=== PATIENT | female | born 1955 | race Caucasian/White ===

== ENCOUNTER 2018-04-08 10:47 | Inpatient (IN) | payer OTHER, SELFPAY ==
[2018-04-08] VITALS (10 sets, daily range): BP systolic 124–150; BP diastolic 54–85; PULSE 78–108; RESP 14–19; TEMP 36.2–36.7; O2SAT 88–98; BMI 30.1; BMI 31.1
--- NOTE | 2018-04-08 11:09 | RAD_ITS ---
STUDY: X-RAY CHEST REASON FOR EXAM: Female, 62 years old. Frequent falls. Back pain. TECHNIQUE: Single AP portable view of the chest. COMPARISON: None. FINDINGS: EKG electrodes are seen. Mild increased markings at the left lung base suggestive of left basilar atelectasis. There is no demonstrated pleural abnormality. Normal size heart. Normal mediastinum and juan. Normal visualized pulmonary arteries. There is atherosclerotic tortuosity of the aortic arch and descending thoracic aorta. Normal visualized thoracic spine. Normal visualized ribs, clavicles, and shoulders. There is no demonstrated abnormality of the visualized soft tissue structures of the upper abdomen. RAD/Chest 1 View (Portable) IMPRESSION: Findings suggestive of mild degree of left basilar linear atelectasis. Electronically Signed: Ibrahima Gutierrez MD at 12:33 EDT Tel [phone], Service support ,
--- NOTE | 2018-04-08 11:09 | EKG12_ITS ---
Test Reason : FALL Blood Pressure : / mmHG Vent. Rate : 101 BPM Atrial Rate : 101 BPM P-R Int : 138 ms QRS Dur : 078 ms QT Int : 346 ms P-R-T Axes : 042 096 008 degrees QTc Int : 448 ms Sinus tachycardia Nonspecific T wave abnormality Confirmed by EVON LINARES, SHA ([id number]), editorial manager UYEN WHITE ([id number]) on 04/12/2018 1:58:17 PM Referred By: WENDY Confirmed By:SHA BARNARD MD
--- NOTE | 2018-04-08 11:09 | CT_ITS ---
STUDY: CT BRAIN WITHOUT CONTRAST REASON FOR EXAM: Female, 62 years old. Confusion. Frequent falls. RADIATION DOSAGE (If Supplied By Facility): CTDIvol = ( 44.99 ) mGy, DLP = ( 745.49 ) mGycm TECHNIQUE: Transaxial CT imaging of the brain was performed without administration of intravenous contrast material. Individualized dose optimization techniques were used for this CT. COMPARISON: None. FINDINGS: Normal soft tissue structures. Normal calvarium. Normal size ventricles and extra-axial spaces for the patient's age. Normal white matter tracts of the cerebral hemispheres. Normal basal ganglia and thalami. Normal brainstem. Normal cerebellum. There is no intracranial hemorrhage. There are no findings of an acute ischemic infarction. Atherosclerotic calcification of the cavernous portions of the internal carotid arteries bilaterally. Normal visualized paranasal sinuses. CT/Brain/Head without Contrast IMPRESSION: Normal unenhanced CT scan of the brain. Electronically Signed: Ibrahima Gutierrez MD at 12:54 EDT Tel [phone], Service support ,
[2018-04-08 11:15] LABS: Bedside Glucose 381 mg/dL (70-110)
--- NOTE | 2018-04-08 11:15 | ED.DCSUM_ITS ---
- ER Visit Summary Date of Service: 04/08/18 Chief Complaint: Frequent falls History of Present Illness: The patient is a 62 F with frequent falls in the past 1-2 days. believes she is fallen at least 4 times. She states that her legs just give out on her. She was seen in urgent care 3 days ago with back pain radiating down the lateral portion of her right leg after riding on a riding lawnmower. Patient was given naproxen and Flexeril at that time. Past history significant for diabetes, skin cancer, back pain. Physical Examination: Vital signs significant for heart rate of 108, otherwise normal. Patient sitting upright in bed. Head neck examination was no external sign of trauma. Heart is slightly tachycardic and regular. Lung sounds are clear. Abdomen is soft nontender. Patient easily rolls to her side. Back examination was abrasions to the left upper back. She has mild tenderness in the low lumbar region, especially the right paraspinals. Neuro exam reveals no focal deficits. Test Results: EKG is sinus at 101 with no sign of acute ischemia. Portable chest x-ray shows mild left basilar linear atelectasis. CT the head is normal. CBC was a white count of 16.8 with 84% neutrophils. Chemistry studies reveal glucose of 360 with a sodium of 134. Her BUN is 32 and creatinine is 1.42. Urinalysis shows 5 ketones with no sign of acute infection. Her calcium is elevated at 14.8. Emergency Department Course and Treatment: Patient was given IV fluids here. On repeat evaluation she is resting comfortably. I did discuss her elevated calcium level with patient and . She has reportedly been taking quite a bit of Tums, which may be causing her calcium to increase. My suspicion is that her Flexeril that she is taking has made her more confused as this has just occurred within the past couple of days that she started the medication. She will be admitted for further observation and testing. Treatment Plan: [] Disposition: Admit Impression: 1. Hypercalcemia 2. Frequent falls 3. Dehydration 4. Leukocytosis This note was generated with [employer] software. It may contain incorrect words, spelling, and punctuation that were not noted in review of the chart prior to signing ED Disposition - Plan for ED Patient: Chief Complaint: Fall Referrals: Hever Otoole DO [Primary Care Provider] -
[2018-04-08] MEDS: 0.9% Normal Saline 1,000 ML 150 ML IV ×2 (11:29→16:45)
[2018-04-08 11:37] LABS: Absolute Lymphocyte Count 1.37 X10^3/ul (0.83-4.51); Absolute Neutrophil Count 14.3 X10^3/uL (2.0-7.7); Basophil# 0.01 X10^3/uL; Basophil% 0.1 % (0-1); Eosinophil# 0.02 X10^3/uL; Eosinophils% 0.1 % (0-5); Hematocrit 39.1 % (37-47); Hemoglobin 13.8 g/dl (12.0-15.0); Lymphocyte # 1.37 X10^3/ul (4.0); Lymphocyte % 8.1 % (19-41); Mean Corp Hgb Conc 35.3 g/gl (32-36); Mean Corpuscular Hgb 29.7 pg (27.0-32.0); Mean Corpuscular Volume 84.3 fL (81-99); Mean Platelet Vol. 9.9 fl (6.2-12.0); Monocyte# 1.15 X10^3/uL; Monocyte% 6.8 % (0-10); Neutrophil # 14.27 X10^3/uL (2.7-7.7); Neutrophil % 84.8 % (47-70); POSITIVE COUNT NO; POSITIVE DIFFERENTIAL NO; POSITIVE MORPHOLOGY NO; Platelet Count 276 K/mm3 (150-450); RBC Distribution Width CV 12.7 % (11.6-14.6); RBC Distribution Width SD 38.5 fl (35.1-43.9); Red Blood Count 4.64 M/mm3 (4.2-5.4); White Blood Count 16.8 K/mm3 (4.4-11.0)
[2018-04-08 12:02] LABS: Anion Gap 8 (5-15); BUN 32 mg/dL (7-18); BUN/Creat Ratio 22.5 RATIO (10-20); Calcium,Total 14.8 mg/dL (8.5-10.1); Chloride 96 mmol/L (98-107); Creatinine, Serum 1.42 mg/dL (0.55-1.02); EST Glomerular Filtration Rate 40 mL/min (>60); Est Glom Filt Rate - Afr Amer 48 mL/min (>60); Estimated Creatinine Clearance 33.98 ml/min; Glucose 360 mg/dL (74-106); Potassium 4.2 mmol/L (3.5-5.1); Sodium Level 134 mmol/L (136-145)
[2018-04-08 12:15] LABS: International Normalized Ratio 0.9; Prothrombin Time (Protime)PT. 12.6 SECONDS (11.7-14.9)
[2018-04-08 13:14] LABS: Mucous, Urine 0 SEEN /hpf (<or=2+); Red Blood Cells-Urine 0 SEEN /hpf (0-5)
[2018-04-08 13:18] LABS: Color, Urine Yellow (Yellow); Glucose, Dipstick 50 mg/dl (Normal); Ketone-Dipstick 5 mg/dl (Negative); Leukocyte Esterase-Dipstick 25 /ul (Negative); Nitrite-Dipstick Negative (Negative); Occult Blood-Urine 25 /ul (Negative); Protein-Dipstick 30 mg/dl (Negative); Specific Gravity, Urine 1.025 (1.002-1.030); Urine Clarity Sl. Cloudy (Clear); Urine Urobilinogen Normal (Normal)
[2018-04-08 13:21] LABS: Urine Bilirubin Dipstick 1 mg/dL (Negative)
[2018-04-08 13:25] LABS: Bacteria 1+ /hpf (None Seen); Squamous Epithelial Cells - UA 0-5 SEEN /hpf (5-10); White Blood Cells 0-5 SEEN /hpf (0-5)
--- NOTE | 2018-04-08 14:55 | HP.PCM_ITS ---
Problem List (1) Hypercalcemia Status: Acute (2) Acute kidney injury Status: Acute (3) Frequent falls Status: Acute (4) Back pain Status: Acute (5) Type 2 diabetes mellitus Status: Chronic (6) Lumbar radiculopathy Status: Chronic History of Present Illness Date of Admission: 04/08/18 Chief Complaint: Frequent falls, right hip and back pain. The patient is a 62 year old F with past medical history as mentioned above presented to the emergency room because of frequent falls. At this time, patient is confused and disoriented. She was a full name, date of but she is disoriented to time and place. She knows her . According to , she has been having frequent falls the past couple of days and she believes that she fell at least 4 times. She mentioned that her legs are so weak when she stands up and legs just give out on her. She complains of right hip pain, dull aching pain, extends to her lower back and down to her right thigh, mild pain, 4-5 out of 10 in severity, and without aggravating or relieving factors. She was seen in the urgent care 3 days ago with back pain after riding a lawnmower and she was given Flexeril and naproxen. Since that time, patient is having trouble standing up, complaining of generalized weakness and fatigue. She denied any significant trauma. She denied chest pain or shortness of breath. She denied focal leg weakness. Denied numbness or tingling. Denied abdominal pain, nausea vomiting. She has history of GERD and she has been using large amount of times during the last 4-5 days. In the emergency department, she was afebrile, slightly tachycardic, blood pressure stable, pulse ox is maintained on room air. At this time, she is alert, oriented ?1, disoriented to time and place. Her routine blood work was remarkable for leukocytosis, BUN of 32, serum creatinine of 1.42. His serum calcium is 14.8. Blood glucose is 360. CT scan brain showed no acute findings. Chest x-ray showed no acute infiltrate, consolidation or effusion. EKG revealed normal sinus rhythm, normal nontender, normal QRS, normal QTC and no acute ischemic changes. She is being admitted for hypercalcemia, acute kidney injury, leukocytosis and metabolic encephalopathy. Past Medical History Past Medical History (Chronic Problems): Chronic Problems (Last Reviewed 04/05/18 @ 13:33 by Joy Tran) Type 2 diabetes mellitus (Chronic) Lumbar radiculopathy (Chronic) Medical History: Medical History (Last Reviewed 04/05/18 @ 13:33 by Joy Tran) Basal cell carcinoma (BCC) C44.91 Diabetes E11.9 Fracture of arm S42.309A Allergies lisinopril Allergy (Verified 04/05/18 13:33) Rash Home Medications: Ambulatory Orders Medication Instructions Recorded aspirin 325 mg tablet 325 mg PO QDAY 09/09/17 glimepiride 1 mg tablet 1 mg PO QAM 09/09/17 metformin 1,000 mg tablet 1,000 mg PO BID 09/09/17 sitagliptin 25 mg tablet 25 mg PO ONCE 09/09/17 cyclobenzaprine 10 mg tablet 10 mg PO TID PRN #20 tab 04/05/18 naproxen 500 mg tablet 500 mg PO BID #30 tab 04/05/18 Surgical History: Surgical History (Last Reviewed 04/05/18 @ 13:33 by Joy Tran) H/O Moh's micrographic surgery for skin cancer Z85.828, Z98.890 Surgical History: noncontributory Psychiatric History: No pertinent psych hx [employer]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 Denies: Chills, Fever Eyes: Denies: Blurred vision, Double vision, Drainage, Vision Change HEENT: Denies: Difficulty Hearing, Ear Pain, Eye Pain, Nasal Congestion, Sore Throat, Visual Changes Cardiovascular: Denies: Chest Pain, Chest Pressure, Edema, Heaviness, Light Headedness, Palpitations, Paroxysmal Noc. Dyspnea, Syncope Respiratory: Denies: Cough, Pleuritic Pain, Shortness of Breath, Sputum production, Wheezing Gastrointestinal: Denies: Abdominal Pain, Constipation, Diarrhea, Nausea, Vomiting Genitourinary: Denies: Dysuria, Frequency, Hematuria Musculoskeletal: Reports: Back Pain, Joint Pain. Denies: Arm Pain Skin: Reports: Dryness. Denies: Rash Neurological: Reports: Confusion. Denies: Balance problems, Blurred vision, Change in Speech, Slurred speech, Focal weakness, Headaches, Incoordination, Numbness Psychiatric: Denies: Anxiety, Depression Endocrine: Denies: Change in Body Habitus, Polydipsia VTE Information - Inpt Only VTE Present on Admission: No VTE Mechan Device Prophylaxis: None VTE Pharm Prophylaxis ordered?: Yes Patient Problems: Active and Suspected Problems (Last Reviewed 04/05/18 @ 13:33 by Joy Tran) Hypercalcemia (Acute) Acute kidney injury (Acute) Frequent falls (Acute) Back pain (Acute) - Physical Exam General: Alert, Cooperative, No apparent distress, Confused, Disoriented HEENT: Atraumatic, PERRLA, EOMI, Normocephalic Oral: No Gingival or Mucosal Lesions/ Ulcerations, Dry Mucosa Neck: Supple, No JVD, Negative Carotid Bruits, Trachea Midline, Thyroid Normal Size and Texture Lungs: Clear to auscultation, No rhonchi, No wheeze, No rales, Diminished Cardiovascular: Regular rate, Regular Rhythm, Normal S1, Normal S2, No murmurs, PMI Normal Abdomen: Bowel Sounds Present, Soft, Non Tender, Non-Distended, No Hepato- splenomegaly Extremities: No clubbing, No cyanosis, No edema Skin: No rashes, No breakdown Lymphatic: No Cervical, Supraclavicular, or Inguinal Adenopathy Neurological: Cranial nerves II-XII grossly intact, - - Global weakness. Psych/Mental Status: Normal Affect, Appropriate Vital Signs Temp Pulse Resp BP Pulse Ox 97.1 F L 88 19 H 146/85 H 96 04/08/18 10:48 04/08/18 14:12 04/08/18 14:12 04/08/18 14:12 04/08/18 14:12 Oxygen Delivery Method Room Air Weight: 170 lb Body Mass Index (BMI) 30.1 Finger Stick Blood Glucose 381 Laboratory Tests Past 24 Hrs 04/08/18 04/08/18 04/08/18 11:28 11:28 11:28 WBC 16.8 H RBC 4.64 Hgb 13.8 Hct 39.1 MCV 84.3 MCH 29.7 MCHC 35.3 RDW 12.7 RDW Differential 38.5 Plt Count 276 MPV 9.9 Immature Gran % (Auto) 0.100 Neut % (Auto) 84.8 H Lymph % (Auto) 8.1 L Real % (Auto) 6.8 Eos % (Auto) 0.1 Baso % (Auto) 0.1 Absolute Neuts (auto) 14.3 H Absolute Lymphs (auto) 1.37 Total Counted Not Reportable PT 12.6 INR 0.9 APTT 21.0 L Sodium 134 L Potassium 4.2 Chloride 96 L Carbon Dioxide 30.0 Anion Gap 8 BUN 32 H Creatinine 1.42 H Estim Creat Clear Calc 33.98 Est GFR (MDRD) Af Amer 48 L Est GFR (MDRD) Non-Af 40 L BUN/Creatinine Ratio 22.5 H Glucose 360 H Calcium 14.8 H* Urine Color Urine Clarity Urine pH Ur Specific [place] Urine Protein Urine Glucose (UA) Urine Ketones Urine Occult Blood Urine Nitrite Urine Bilirubin Urine Urobilinogen Ur Leukocyte Esterase Urine RBC Urine WBC Ur Squamous Epith Cells Urine Bacteria Urine Mucus 04/08/18 13:10 WBC RBC Hgb Hct MCV MCH MCHC RDW RDW Differential Plt Count MPV Immature Gran % (Auto) Neut % (Auto) Lymph % (Auto) Real % (Auto) Eos % (Auto) Baso % (Auto) Absolute Neuts (auto) Absolute Lymphs (auto) Total Counted PT INR APTT Sodium Potassium Chloride Carbon Dioxide Anion Gap BUN Creatinine Estim Creat Clear Calc Est GFR (MDRD) Af Amer Est GFR (MDRD) Non-Af BUN/Creatinine Ratio Glucose Calcium Urine Color Yellow Urine Clarity Sl. Cloudy Urine pH 5.0 Ur Specific [place] 1.025 Urine Protein 30 H Urine Glucose (UA) 50 H Urine Ketones 5 H Urine Occult Blood 25 H Urine Nitrite Negative Urine Bilirubin 1 H Urine Urobilinogen Normal Ur Leukocyte Esterase 25 H Urine RBC 0 SEEN Urine WBC 0-5 SEEN Ur Squamous Epith Cells 0-5 SEEN Urine Bacteria 1+ Urine Mucus 0 SEEN POC Glucose 04/08/18 11:09 POC Glucose 381 H Clinical Impression(s) from Imaging Studies Brain CT 04/08/18 11:09 IMPRESSION: Normal unenhanced CT scan of the brain. Electronically Signed: Ibrahima Gutierrez MD at 12:54 EDT Tel [phone], Service support , Chest X-Ray 04/08/18 11:09 IMPRESSION: Findings suggestive of mild degree of left basilar linear atelectasis. Electronically Signed: Ibrahima Gutierrez MD at 12:33 EDT Tel [phone], Service support , Assessment/Plan All Active Problems (Last Reviewed 04/05/18 @ 13:33 by Joy Tran) Hypercalcemia (Acute) Acute kidney injury (Acute) Frequent falls (Acute) Back pain (Acute) This is a 62 years old female patient presented to the emergency room because of frequent falls, weakness, difficulty ambulating and back pain, found to have hypercalcemia, acute kidney injury and leukocytosis and she is being admitted for evaluation and treatment. #1 hypercalcemia: Patient mentioned that she has been taking last dose of Tums for GERD the last 5 days. She went to urgent care 3 days ago for back pain, given naproxen and Flexeril and since then, she has been having difficulties ambulating and walking with frequent falls. This hypercalcemia could be iatrogenic due to calcium supplements with Tums. At this time, patient's vital signs are stable. EKG reviewed, no acute changes or arrhythmias. She has been given bolus of IV fluids in the ER. At this time, other differential diagnosis such as malignancy is less likely but still to be considered. Plan: Admit to MedSurg floor, cardiac monitoring, gentle IV fluids for hydration, Lasix 40 mg IV ?1, will check serum parathyroid hormone, vitamin D2, vitamin D3 level, serum phosphorus, TSH, ionized calcium, repeat CBC and CMP tomorrow, LFT, lipase , PT OT evaluation and treatment. #2 acute kidney injury: Secondary to above. Baseline kidney function is normal. Patient is severely dehydrated. Admission creatinine is 1.42. Plan: IV fluids, input output chart, repeat BMP tomorrow morning, avoid nephrotoxic drugs, hold metformin and naproxen. #3 leukocytosis: This is likely reactive secondary to acute illness and stress. She denies any symptoms suggestive of infection. Chest x-ray showed no acute findings. Urinalysis revealed cloudy urine, negative for nitrite, there was only 25 leukocyte esterase, 0-5 WBCs and 1+ bacteria. Plan for urine culture, no indication for IV antibiotics. #4 encephalopathy: This is probably metabolic secondary to severe hypercalcemia. CT scan brain showed no acute findings. She has no focal deficit on exam. Plan to treat underlying severe hypercalcemia and dehydration. #5 right hip pain/back pain: She does have history of chronic back pain. She went to urgent care 3 days ago for back pain after she was riding a lawnmower. She denied any focal deficit, no numbness or tingling, no bowel or bladder incontinence. No significant trauma. Plan: X-ray left hip, x-ray lumbar spine , Tylenol as needed for pain. #6 type 2 diabetes mellitus: ADA diet, Accu-Cheks, insulin scale, continue sitagliptin and glimepiride, hold metformin, hemoglobin A1c. #7 DVT prophylaxis: Subcu heparin. This note was generated with [employer] dictation software. It may contain incorrect words, spelling, and punctuation that were not noted in checking the note before signing. Code Visit Inpatient E&M: 90868 Init Hosp L3
--- NOTE | 2018-04-08 16:01 | RAD_ITS ---
STUDY: X-RAY - PELVIS AND RIGHT HIP REASON FOR EXAM: Female, 62 years old. Pain TECHNIQUE: Radiological exam, hip, unilateral, with pelvis when performed; 2 or 3 views. COMPARISON: None. FINDINGS: There is a non-specific bowel gas pattern. Normal visualized soft tissue structures. Normal bilateral iliac wings, sacroiliac joints and visualized sacrum. Normal bilateral superior and inferior pubic rami. Normal pubic symphysis. Normal bilateral ischial tuberosities. Normal visualized femoral head. Normal acetabulum. Normal hip joint. RAD/Hip Min 2 Views (Portable) IMPRESSION: Normal x-ray examination of the pelvis and hip. Electronically Signed: Kishor Spence MD at 19:50 EDT , Service support ,
--- NOTE | 2018-04-08 16:01 | RAD_ITS ---
STUDY: X-RAY - LUMBAR SPINE REASON FOR EXAM: Female, 62 years old. Back pain TECHNIQUE: 3 view(s) of the lumbar spine were obtained. COMPARISON: None FINDINGS: Normal lumbar lordosis. There is no substantial scoliosis. There is a normal alignment of the vertebrae. Moderate to severe degenerative disc disease seen at L3-L4. Moderate degenerative disc disease seen at L4-L5. No acute abnormalities. The soft tissue structures are unremarkable. RAD/Lumbar Spine 2 or 3 Views IMPRESSION: Degenerative disc disease at L3-L4 and L4-L5. Electronically Signed: Kishor Spence MD at 20:17 EDT , Service support ,
[2018-04-08] MEDS: Furosemide 40 MG/4 ML Vial IV (16:51)
[2018-04-08] MEDS: Aspirin 325 MG Tablet PO (16:51)
[2018-04-08] MEDS: Insulin Lispro 100 UNIT/ML INSULN.PEN SC ×2 (16:51→21:37)
[2018-04-08 17:01] LABS: Bedside Glucose 233 mg/dL (70-110)
[2018-04-08] MEDS: LINAGLIPTIN 5 MG TABLET PO (17:39)
[2018-04-08 18:07] LABS: AST(SGOT) 31 U/L (15-37); Alanine Aminotransfer ALT/SGPT 35 U/L (13-56); Albumin, Serum 3.6 g/dL (3.2-5.0); Alkaline Phosphatase 71 U/L (45-117); Bilirubin, Direct 0.11 mg/dL (0.00-0.30); CPK Total, Creatine Kinase 360 U/L (26-192); Globulin 3.2 g/dL (2.2-4.2); Lipase 54 U/L (73-393); Phosphorus 4.4 mg/dL (2.5-4.9); Protein, Total 6.8 g/dL (6.4-8.2); Thyroid Stim Hormone (TSH) 1.34 uIU/mL (0.358-3.74)
[2018-04-08] MEDS: Heparin Injection (Vial) 5,000 UNIT/ML VIAL 5000 UNIT SC (21:36)
[2018-04-08 21:46] LABS: Bedside Glucose 281 mg/dL (70-110)
[2018-04-09] VITALS (8 sets, daily range): BP systolic 113–170; BP diastolic 76–80; PULSE 82–97; RESP 14–17; TEMP 36.5–36.8; O2SAT 93–96
[2018-04-09] MEDS: Magnesium Hydroxide 30 ML UDC PO (03:33)
[2018-04-09] MEDS: Ondansetron 4 MG/2 ML Vial IV ×4 (03:34→23:53)
[2018-04-09] MEDS: 0.9% Normal Saline 1,000 ML 150 ML IV ×5 (03:41→23:50)
[2018-04-09 06:04] LABS: Absolute Lymphocyte Count 1.48 X10^3/ul (0.83-4.51); Absolute Neutrophil Count 8.5 X10^3/uL (2.0-7.7); Basophil# 0.02 X10^3/uL; Basophil% 0.2 % (0-1); Eosinophil# 0.05 X10^3/uL; Eosinophils% 0.5 % (0-5); Hematocrit 38.2 % (37-47); Hemoglobin 13.2 g/dl (12.0-15.0); Lymphocyte # 1.48 X10^3/ul (4.0); Lymphocyte % 13.7 % (19-41); Mean Corp Hgb Conc 34.6 g/gl (32-36); Mean Corpuscular Hgb 29.5 pg (27.0-32.0); Mean Corpuscular Volume 85.5 fL (81-99); Mean Platelet Vol. 10.1 fl (6.2-12.0); Monocyte% 6.5 % (0-10); Neutrophil # 8.51 X10^3/uL (2.7-7.7); Platelet Count 294 K/mm3 (150-450); RBC Distribution Width CV 12.3 % (11.6-14.6); RBC Distribution Width SD 37.5 fl (35.1-43.9); Red Blood Count 4.47 M/mm3 (4.2-5.4); White Blood Count 10.8 K/mm3 (4.4-11.0)
[2018-04-09 06:08] LABS: POSITIVE COUNT NO; POSITIVE DIFFERENTIAL NO; POSITIVE MORPHOLOGY NO
[2018-04-09] MEDS: Insulin Lispro 100 UNIT/ML INSULN.PEN SC ×4 (06:40→21:41)
[2018-04-09] MEDS: Heparin Injection (Vial) 5,000 UNIT/ML VIAL 5000 UNIT SC ×3 (06:40→21:38)
[2018-04-09 06:46] LABS: Bedside Glucose 354 mg/dL (70-110)
[2018-04-09 06:46] LABS: ALB/GLOB Ratio 1.1 RATIO (0.9-2.4); AST(SGOT) 33 U/L (15-37); Alanine Aminotransfer ALT/SGPT 39 U/L (13-56); Albumin, Serum 3.5 g/dL (3.2-5.0); Alkaline Phosphatase 72 U/L (45-117); Anion Gap 8 (5-15); BUN 34 mg/dL (7-18); BUN/Creat Ratio 30.1 RATIO (10-20); Calcium,Total 12.7 mg/dL (8.5-10.1); Chloride 96 mmol/L (98-107); Creatinine, Serum 1.13 mg/dL (0.55-1.02); EST Glomerular Filtration Rate 52 mL/min (>60); Est Glom Filt Rate - Afr Amer 63 mL/min (>60); Estimated Creatinine Clearance 40.83 ml/min; Globulin 3.1 g/dL (2.2-4.2); Glucose 319 mg/dL (74-106); Potassium 3.6 mmol/L (3.5-5.1); Protein, Total 6.6 g/dL (6.4-8.2); Sodium Level 141 mmol/L (136-145)
--- NOTE | 2018-04-09 07:50 | PCM.PN.HOSP ---
Patient Problems: Active and Suspected Problems (Last Reviewed 04/05/18 @ 13:33 by Joy Tran) Hypercalcemia (Acute) Acute kidney injury (Acute) Frequent falls (Acute) Back pain (Acute) Subjective: Patient is a 62-year-old female admitted with frequent falls generalized weakness difficulty with ambulation. Patient was found to have acute kidney injury on admission as well as hypercalcemia admitted to regular nursing floor for further management Objective: GENERAL: Patient appears delirious HEENT: Clear conjunctiva, moist oral mucosa NECK; supple, normal thyroid, no distended JVD. CHEST: Diminished to auscultation bilaterally, HEART: Regular S1 S2, no audible murmurs ABDOMEN: soft, non-tender, normoactive bowel sounds, RECTAL: deferred EXTREMITIES: No edema, no clubbing, no cyanosis. 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 SKIN: No Rash Vitals/I&O's: Vital Signs Temp Pulse Resp BP Pulse Ox 98.0 F 95 16 139/76 H 96 04/09/18 04:20 04/09/18 04:20 04/09/18 04:20 04/09/18 04:20 04/09/18 04:20 Oxygen Delivery Method Room Air Weight: 77.111 kg Body Mass Index (BMI) 31.1 Intake and Output for Last 24 Hours 04/07/18 04/08/18 04/09/18 23:59 23:59 23:59 Intake Total 140 / 140 2625 / 2625 Output Total 600 / 600 1000 / 1000 Balance -460 / -460 1625 / 1625 Laboratory Results 04/08/18 16:51: POC Glucose 233 H 04/08/18 16:55: Phosphorus 4.4, Total Bilirubin 0.60, Direct Bilirubin 0.11, AST 31, ALT 35, Alkaline Phosphatase 71, Total Creatine Kinase 360 H, Total Protein 6.8, Albumin 3.6, Globulin 3.2, Lipase 54 L, TSH 1.34 04/08/18 16:55: Ionized Calcium Pending 04/08/18 16:55: PTH Intact Pending 04/08/18 16:55: Vitamin D 25-Hydroxy Pending 04/08/18 16:55: Vit D 1,25-Dihydroxy Pending 04/08/18 21:35: POC Glucose 281 H 04/09/18 05:45: WBC 10.8, RBC 4.47, Hgb 13.2, Hct 38.2, MCV 85.5, MCH 29.5, MCHC 34.6, RDW 12.3, RDW Differential 37.5, Plt Count 294, MPV 10.1, Immature Gran % (Auto) 0.100, Neut % (Auto) 79.0 H, Lymph % (Auto) 13.7 L, Mcmullen % (Auto) 6.5, Eos % (Auto) 0.5, Baso % (Auto) 0.2, Absolute Neuts (auto) 8.5 H, Absolute Lymphs (auto) 1.48, Total Counted Not Reportable 04/09/18 05:45: Sodium 141, Potassium 3.6, Chloride 96 L, Carbon Dioxide 37.0 H, Anion Gap 8, BUN 34 H, Creatinine 1.13 H, Estim Creat Clear Calc 40.83, Est GFR (MDRD) Af Amer 63, Est GFR (MDRD) Non-Af 52 L, BUN/Creatinine Ratio 30.1 H, Glucose 319 H, Calcium 12.7 H*, Total Bilirubin 0.40, AST 33, ALT 39, Alkaline Phosphatase 72, Total Protein 6.6, Albumin 3.5, Globulin 3.1, Albumin/Globulin Ratio 1.1 04/09/18 06:34: POC Glucose 354 H Current Medications Acetaminophen (Tylenol) 650 mg PO Q6H PRN PRN PRN Reason: Fever, headache, pain Aspirin (Aspirin) 325 mg PO DAILYCM [facility] Last Admin: 04/08/18 16:51 Dose: 325 mg Glimepiride (Amaryl) 1 mg PO QAM [facility] Heparin Sodium (Porcine) (Heparin Na) 5,000 unit SC Q8 [facility] Last Admin: 04/09/18 06:40 Dose: 5,000 u Sodium Chloride () 1,000 mls @ 150 mls/hr IV .Q6H40M [facility] Last Admin: 04/09/18 05:52 Dose: 150 mls/hr Insulin Human Lispro (Humalog Kwikpen (Bkc)) 0 unit SC ACHS [facility] PRN Reason: Protocol Last Admin: 04/09/18 06:40 Dose: 6 unit Linagliptin (Tradjenta) 5 mg PO DAILY [facility] Magnesium Hydroxide (Milk Of Magnesia) 30 ml PO DAILY PRN PRN PRN Reason: Constipation Last Admin: 04/09/18 03:33 Dose: 30 ml Ondansetron HCl (Zofran) 4 mg IV Q6H PRN PRN PRN Reason: NAUSEA/VOMITING Last Admin: 04/09/18 03:34 Dose: 4 mg Medical Necessity - Tobacco Use Smoking Status: Never smoker Tobacco Use: Non-smoker Assessment/Plan All Active Problems (Last Reviewed 04/05/18 @ 13:33 by Joy Tran) Hypercalcemia (Acute) Acute kidney injury (Acute) Frequent falls (Acute) Back pain (Acute) Patient is a 62-year-old female admitted with frequent falls generalized weakness difficulty with ambulation. Patient was found to have acute kidney injury on admission as well as hypercalcemia admitted to regular nursing floor for further management 1. Hypercalcemia attributed to increase intake of supplemental calcium. Patient had no acute EKG changes on admission admitted to a monitored bed for subsequent management as part of patient's evaluation a serum intact PTH, vitamin D B12 D3 levels and phosphorus and TSH were ordered. Patient being managed with IV fluids with monitoring of electrolyte 2. Acute kidney injury: Patient is on IV fluids with monitoring of electrolyte 3. Acute metabolic encephalopathy secondary to hypercalcemia and dehydration 3. Leukocytosis suspected to be secondary to stress related no acute infectious cause was found on admission 5. Diabetes mellitus type 2; held patient oral agents please and Accu-Cheks before meals and at bedtime with sliding scale coverage 6. History of chronic back pain 7. DVT prophylaxis SC Heparin Clinical Impression(s) from Imaging Studies Brain CT 04/08/18 11:09 IMPRESSION: Normal unenhanced CT scan of the brain. Electronically Signed: Ibrahima Gutierrez MD at 12:54 EDT Tel [phone], Service support , Chest X-Ray 04/08/18 11:09 IMPRESSION: Findings suggestive of mild degree of left basilar linear atelectasis. Electronically Signed: Ibrahima Gutierrez MD at 12:33 EDT Tel [phone], Service support , Hip X-Ray 04/08/18 16:01 IMPRESSION: Normal x-ray examination of the pelvis and hip. Electronically Signed: Kishor Spence MD at 19:50 EDT , Service support , Lumbar Spine X-Ray 04/08/18 16:01 IMPRESSION: Degenerative disc disease at L3-L4 and L4-L5. Electronically Signed: Kishor Spence MD at 20:17 EDT , Service support , Active Medications Acetaminophen (Tylenol) 650 mg PO Q6H PRN PRN PRN Reason: Fever, headache, pain [facility] Last Admin: 04/08/18 16:51 Dose: 325 mg Glimepiride (Amaryl) 1 mg PO QAM [facility] Heparin Sodium (Porcine) (Heparin Na) 5,000 unit SC Q8 [facility] Last Admin: 04/09/18 06:40 Dose: 5,000 u Sodium Chloride () 1,000 mls @ 150 mls/hr IV .Q6H40M [facility] Last Admin: 04/09/18 05:52 Dose: 150 mls/hr Insulin Human Lispro (Humalog Kwikpen (Bkc)) 0 unit SC ACHS [facility] PRN Reason: Protocol Last Admin: 04/09/18 06:40 Dose: 6 unit Linagliptin (Tradjenta) 5 mg PO DAILY [facility] Magnesium Hydroxide (Milk Of Magnesia) 30 ml PO DAILY PRN PRN PRN Reason: Constipation Last Admin: 04/09/18 03:33 Dose: 30 ml Ondansetron HCl (Zofran) 4 mg IV Q6H PRN PRN PRN Reason: NAUSEA/VOMITING Last Admin: 04/09/18 03:34 Dose: 4 mg Code Visit Inpatient E&M: 50178 [facility] Hosp L3
--- NOTE | 2018-04-09 07:53 | PN_ITS ---
Patient Problems: Active and Suspected Problems (Last Reviewed 04/05/18 @ 13:33 by Joy Tran) Hypercalcemia (Acute) Acute kidney injury (Acute) Frequent falls (Acute) Back pain (Acute) Subjective: Patient is a 62-year-old female admitted with frequent falls generalized weakness difficulty with ambulation. Patient was found to have acute kidney injury on admission as well as hypercalcemia admitted to regular nursing floor for further management Objective: GENERAL: Patient appears delirious HEENT: Clear conjunctiva, moist oral mucosa NECK; supple, normal thyroid, no distended JVD. CHEST: Diminished to auscultation bilaterally, HEART: Regular S1 S2, no audible murmurs ABDOMEN: soft, non-tender, normoactive bowel sounds, RECTAL: deferred EXTREMITIES: No edema, no clubbing, no cyanosis. [employer]: Somewhat lethargic but arousable SKIN: No Rash Vitals/I&O's: Vital Signs Temp Pulse Resp BP Pulse Ox 98.0 F 95 16 139/76 H 96 04/09/18 04:20 04/09/18 04:20 04/09/18 04:20 04/09/18 04:20 04/09/18 04:20 Oxygen Delivery Method Room Air Weight: 77.111 kg Body Mass Index (BMI) 31.1 Intake and Output for Last 24 Hours 04/07/18 04/08/18 04/09/18 23:59 23:59 23:59 Intake Total 140 / 140 2625 / 2625 Output Total 600 / 600 1000 / 1000 Balance -460 / -460 1625 / 1625 Laboratory Results 04/08/18 16:51: POC Glucose 233 H 04/08/18 16:55: Phosphorus 4.4, Total Bilirubin 0.60, Direct Bilirubin 0.11, AST 31, ALT 35, Alkaline Phosphatase 71, Total Creatine Kinase 360 H, Total Protein 6.8, Albumin 3.6, Globulin 3.2, Lipase 54 L, TSH 1.34 04/08/18 16:55: Ionized Calcium Pending 04/08/18 16:55: PTH Intact Pending 04/08/18 16:55: Vitamin D 25-Hydroxy Pending 04/08/18 16:55: Vit D 1,25-Dihydroxy Pending 04/08/18 21:35: POC Glucose 281 H 04/09/18 05:45: WBC 10.8, RBC 4.47, Hgb 13.2, Hct 38.2, MCV 85.5, MCH 29.5, MCHC 34.6, RDW 12.3, RDW Differential 37.5, Plt Count 294, MPV 10.1, Immature Gran % (Auto) 0.100, Neut % (Auto) 79.0 H, Lymph % (Auto) 13.7 L, [place] % (Auto) 6.5, Eos % (Auto) 0.5, Baso % (Auto) 0.2, Absolute Neuts (auto) 8.5 H, Absolute Lymphs (auto) 1.48, Total Counted Not Reportable 04/09/18 05:45: Sodium 141, Potassium 3.6, Chloride 96 L, Carbon Dioxide 37.0 H , Anion Gap 8, BUN 34 H, Creatinine 1.13 H, Estim Creat Clear Calc 40.83, Est GFR (MDRD) Af Amer 63, Est GFR (MDRD) Non-Af 52 L, BUN/Creatinine Ratio 30.1 H, Glucose 319 H, Calcium 12.7 H*, Total Bilirubin 0.40, AST 33, ALT 39, Alkaline Phosphatase 72, Total Protein 6.6, Albumin 3.5, Globulin 3.1, Albumin/Globulin Ratio 1.1 04/09/18 06:34: POC Glucose 354 H Current Medications Acetaminophen (Tylenol) 650 mg PO Q6H PRN PRN PRN Reason: Fever, headache, pain Aspirin (Aspirin) 325 mg PO DAILYCM [facility] Last Admin: 04/08/18 16:51 Dose: 325 mg Glimepiride (Amaryl) 1 mg PO QAM [facility] Heparin Sodium (Porcine) (Heparin Na) 5,000 unit SC Q8 [facility] Last Admin: 04/09/18 06:40 Dose: 5,000 u Sodium Chloride () 1,000 mls @ 150 mls/hr IV .Q6H40M [facility] Last Admin: 04/09/18 05:52 Dose: 150 mls/hr Insulin Human Lispro (Humalog Kwikpen (Bkc)) 0 unit SC ACHS [facility] PRN Reason: Protocol Last Admin: 04/09/18 06:40 Dose: 6 unit Linagliptin (Tradjenta) 5 mg PO DAILY [facility] Magnesium Hydroxide (Milk Of Magnesia) 30 ml PO DAILY PRN PRN PRN Reason: Constipation Last Admin: 04/09/18 03:33 Dose: 30 ml Ondansetron HCl (Zofran) 4 mg IV Q6H PRN PRN PRN Reason: NAUSEA/VOMITING Last Admin: 04/09/18 03:34 Dose: 4 mg Medical Necessity - Tobacco Use Smoking Status: Never smoker Tobacco Use: Non-smoker Assessment/Plan All Active Problems (Last Reviewed 04/05/18 @ 13:33 by Joy Tran) Hypercalcemia (Acute) Acute kidney injury (Acute) Frequent falls (Acute) Back pain (Acute) Patient is a 62-year-old female admitted with frequent falls generalized weakness difficulty with ambulation. Patient was found to have acute kidney injury on admission as well as hypercalcemia admitted to regular nursing floor for further management 1. Hypercalcemia attributed to increase intake of supplemental calcium. Patient had no acute EKG changes on admission admitted to a monitored bed for subsequent management as part of patient's evaluation a serum intact PTH, vitamin D B12 D3 levels and phosphorus and TSH were ordered. Patient being managed with IV fluids with monitoring of electrolyte 2. Acute kidney injury: Patient is on IV fluids with monitoring of electrolyte 3. Acute metabolic encephalopathy secondary to hypercalcemia and dehydration 3. Leukocytosis suspected to be secondary to stress related no acute infectious cause was found on admission 5. Diabetes mellitus type 2; held patient oral agents please and Accu-Cheks before meals and at bedtime with sliding scale coverage 6. History of chronic back pain 7. DVT prophylaxis SC Heparin Clinical Impression(s) from Imaging Studies Brain CT 04/08/18 11:09 IMPRESSION: Normal unenhanced CT scan of the brain. Electronically Signed: Ibrahima Gutierrez MD at 12:54 EDT Tel [phone], Service support , Chest X-Ray 04/08/18 11:09 IMPRESSION: Findings suggestive of mild degree of left basilar linear atelectasis. Electronically Signed: Ibrahima Gutierrez MD at 12:33 EDT Tel [phone], Service support , Hip X-Ray 04/08/18 16:01 IMPRESSION: Normal x-ray examination of the pelvis and hip. Electronically Signed: Kishor Spence MD at 19:50 EDT , Service support , Lumbar Spine X-Ray 04/08/18 16:01 IMPRESSION: Degenerative disc disease at L3-L4 and L4-L5. Electronically Signed: Kishor Spence MD at 20:17 EDT , Service support , Active Medications Acetaminophen (Tylenol) 650 mg PO Q6H PRN PRN PRN Reason: Fever, headache, pain [facility] Last Admin: 04/08/18 16:51 Dose: 325 mg Glimepiride (Amaryl) 1 mg PO QAM [facility] Heparin Sodium (Porcine) (Heparin Na) 5,000 unit SC Q8 [facility] Last Admin: 04/09/18 06:40 Dose: 5,000 u Sodium Chloride () 1,000 mls @ 150 mls/hr IV .Q6H40M [facility] Last Admin: 04/09/18 05:52 Dose: 150 mls/hr Insulin Human Lispro (Humalog Kwikpen (Bkc)) 0 unit SC ACHS [facility] PRN Reason: Protocol Last Admin: 04/09/18 06:40 Dose: 6 unit Linagliptin (Tradjenta) 5 mg PO DAILY [facility] Magnesium Hydroxide (Milk Of Magnesia) 30 ml PO DAILY PRN PRN PRN Reason: Constipation Last Admin: 04/09/18 03:33 Dose: 30 ml Ondansetron HCl (Zofran) 4 mg IV Q6H PRN PRN PRN Reason: NAUSEA/VOMITING Last Admin: 04/09/18 03:34 Dose: 4 mg Code Visit Inpatient E&M: 71143 [facility] Hosp L3
[2018-04-09 10:15] LABS: PTHIN 9.4 pg/mL (18.4-80.1)
[2018-04-09 10:26] LABS: Vitamin D,25 Hydroxy 29.1 ng/mL (29.95-100.01)
[2018-04-09] MEDS: LINAGLIPTIN 5 MG TABLET PO (10:44)
[2018-04-09] MEDS: Aspirin 325 MG Tablet PO (10:45)
[2018-04-09] MEDS: Glimepiride 1 MG Tablet PO (10:45)
--- NOTE | 2018-04-09 11:54 | CASEMGMT ---
RN CM Face to Face with patient for initial transition planning/care coordination assessment. RN CM introduced self and role at [facility]. Patient sitting in chair, alert, sister at bedside. Patient willing to participate in assessment. Care providers, pharmacy, and demographics verified. See link attached. Pt wishes to discharge home, denies need for home health at this time. Patient states she has no further needs or concerns at this time. RN CM will continue to monitor therapy notes and progress to determine further discharge needs. CM to follow for discharge planning needs that may arise. Disposition Plan: TBD by coarse of treatment
[2018-04-09 13:16] LABS: Bedside Glucose 285 mg/dL (70-110)
[2018-04-09] MEDS: Glucerna Shake 120 ML LIQUID PO (15:08)
[2018-04-09 17:05] LABS: Bedside Glucose 280 mg/dL (70-110)
[2018-04-09 22:15] LABS: Bedside Glucose 274 mg/dL (70-110)
[2018-04-10] VITALS (9 sets, daily range): BP systolic 135–174; BP diastolic 69–90; PULSE 75–92; RESP 14–16; TEMP 36.7–37.1; O2SAT 93–96
[2018-04-10] MEDS: Heparin Injection (Vial) 5,000 UNIT/ML VIAL 5000 UNIT SC ×3 (06:39→22:33)
[2018-04-10] MEDS: Insulin Lispro 100 UNIT/ML INSULN.PEN SC ×4 (06:45→22:34)
[2018-04-10] MEDS: 0.9% Normal Saline 1,000 ML 150 ML IV ×3 (06:46→21:55)
[2018-04-10] MEDS: Ondansetron 4 MG/2 ML Vial IV (07:00)
[2018-04-10 07:06] LABS: Bedside Glucose 296 mg/dL (70-110)
[2018-04-10 07:12] LABS: Absolute Lymphocyte Count 1.49 X10^3/ul (0.83-4.51); Absolute Neutrophil Count 9.9 X10^3/uL (2.0-7.7); Basophil# 0.02 X10^3/uL; Basophil% 0.2 % (0-1); Eosinophil# 0.01 X10^3/uL; Eosinophils% 0.1 % (0-5); Hematocrit 36.3 % (37-47); Hemoglobin 12.2 g/dl (12.0-15.0); Lymphocyte # 1.49 X10^3/ul (4.0); Lymphocyte % 12.2 % (19-41); Mean Corp Hgb Conc 33.6 g/gl (32-36); Mean Corpuscular Hgb 29.2 pg (27.0-32.0); Mean Corpuscular Volume 86.8 fL (81-99); Mean Platelet Vol. 10.2 fl (6.2-12.0); Monocyte# 0.81 X10^3/uL; Monocyte% 6.6 % (0-10); Neutrophil # 9.88 X10^3/uL (2.7-7.7); Neutrophil % 80.8 % (47-70); Platelet Count 233 K/mm3 (150-450); RBC Distribution Width CV 12.5 % (11.6-14.6); RBC Distribution Width SD 39.7 fl (35.1-43.9); Red Blood Count 4.18 M/mm3 (4.2-5.4); White Blood Count 12.2 K/mm3 (4.4-11.0)
[2018-04-10 07:19] LABS: POSITIVE COUNT NO; POSITIVE DIFFERENTIAL NO; POSITIVE MORPHOLOGY NO
[2018-04-10 07:24] LABS: Anion Gap 9 (5-15); BUN 31 mg/dL (7-18); BUN/Creat Ratio 33.8 RATIO (10-20); Calcium,Total 10.8 mg/dL (8.5-10.1); Chloride 99 mmol/L (98-107); Creatinine, Serum 0.92 mg/dL (0.55-1.02); EST Glomerular Filtration Rate 66 mL/min (>60); Est Glom Filt Rate - Afr Amer 80 mL/min (>60); Estimated Creatinine Clearance 50.15 ml/min; Glucose 286 mg/dL (74-106); Potassium 3.4 mmol/L (3.5-5.1); Sodium Level 143 mmol/L (136-145)
[2018-04-10] MEDS: Aspirin 325 MG Tablet PO (07:41)
[2018-04-10] MEDS: Glimepiride 1 MG Tablet PO (10:48)
[2018-04-10] MEDS: LINAGLIPTIN 5 MG TABLET PO (10:48)
[2018-04-10] MEDS: Glucerna Shake 120 ML LIQUID PO ×4 (10:50→22:33)
[2018-04-10 10:51] LABS: Bedside Glucose 217 mg/dL (70-110)
--- NOTE | 2018-04-10 11:12 | PCM.PN.HOSP ---
Patient Problems: Active and Suspected Problems (Last Reviewed 04/05/18 @ 13:33 by Joy Tran) Hypercalcemia (Acute) Acute kidney injury (Acute) Frequent falls (Acute) Back pain (Acute) Subjective: Patient reports no acute issues Objective: Is ambulatory with walker Vitals/I&O's: Vital Signs Temp Pulse Resp BP Pulse Ox 98.1 F 81 16 168/90 H 93 04/10/18 07:29 04/10/18 07:29 04/10/18 07:29 04/10/18 07:29 04/10/18 07:29 Oxygen Delivery Method Room Air Weight: 170 lb 0.01 oz Body Mass Index (BMI) 31.1 Intake and Output for Last 24 Hours 04/08/18 04/09/18 04/10/18 23:59 23:59 23:59 Intake Total 140 / 140 4443 / 4443 1943 / 1943 Output Total 600 / 600 1600 / 1600 1075 / 1075 Balance -460 / -460 2843 / 2843 868 / 868 General: Alert, Oriented x3 Oral: Moist Mucosa Neck: No JVD, Trachea Midline, Thyroid Normal Size and Texture Lungs: Clear to auscultation Cardiovascular: Regular rate, Regular Rhythm, Normal S1, Normal S2 Abdomen: Bowel Sounds Present Extremities: No edema Skin: No rashes Psych/Mental Status: Normal Affect, Appropriate Microbiology Past 72 Hours 04/08/18 17:40 Urine, Clean Catch Urine Culture - Preliminary Presumptive E. coli Streptococcus group B Laboratory Results 04/09/18 13:05: POC Glucose 285 H 04/09/18 16:59: POC Glucose 280 H 04/09/18 21:41: POC Glucose 274 H 04/10/18 06:45: WBC 12.2 H, RBC 4.18 L, Hgb 12.2, Hct 36.3 L, MCV 86.8, MCH 29.2, MCHC 33.6, RDW 12.5, RDW Differential 39.7, Plt Count 233, MPV 10.2, Immature Gran % (Auto) 0.100, Neut % (Auto) 80.8 H, Lymph % (Auto) 12.2 L, [place] % (Auto) 6.6, Eos % (Auto) 0.1, Baso % (Auto) 0.2, Absolute Neuts (auto) 9.9 H, Absolute Lymphs (auto) 1.49, Total Counted Not Reportable 04/10/18 06:45: Sodium 143, Potassium 3.4 L, Chloride 99, Carbon Dioxide 35.0 H, Anion Gap 9, BUN 31 H, Creatinine 0.92, Estim Creat Clear Calc 50.15, Est GFR (MDRD) Af Amer 80, Est GFR (MDRD) Non-Af 66, BUN/Creatinine Ratio 33.8 H, Glucose 286 H, Calcium 10.8 H 04/10/18 06:45: POC Glucose 296 H 04/10/18 10:45: POC Glucose 217 H Current Medications Acetaminophen (Tylenol) 650 mg PO Q6H PRN PRN PRN Reason: Fever, headache, pain Aspirin (Aspirin) 325 mg PO DAILYCM [facility] Last Admin: 04/10/18 07:41 Dose: 325 mg Glimepiride (Amaryl) 1 mg PO QAM [facility] Last Admin: 04/10/18 10:48 Dose: 1 mg Heparin Sodium (Porcine) (Heparin Na) 5,000 unit SC Q8 [facility] Last Admin: 04/10/18 06:39 Dose: 5,000 u Sodium Chloride () 1,000 mls @ 150 mls/hr IV .Q6H40M [facility] Last Admin: 04/10/18 06:46 Dose: 150 mls/hr Insulin Human Lispro (Humalog Kwikpen (Bkc)) 0 unit SC ACHS [facility] PRN Reason: Protocol Last Admin: 04/10/18 10:51 Dose: 2 unit Linagliptin (Tradjenta) 5 mg PO DAILY [facility] Last Admin: 04/10/18 10:48 Dose: 5 mg Magnesium Hydroxide (Milk Of Magnesia) 30 ml PO DAILY PRN PRN PRN Reason: Constipation Last Admin: 04/09/18 03:33 Dose: 30 ml Nutritional Formula (Lactose Free) (Glucerna Shake) 120 ml PO 4X/DAY [facility] Last Admin: 04/10/18 10:50 Dose: 120 ml Ondansetron HCl (Zofran) 4 mg IV Q6H PRN PRN PRN Reason: NAUSEA/VOMITING Last Admin: 04/10/18 07:00 Dose: 4 mg Promethazine HCl (Phenergan) 12.5 mg IM Q4H PRN PRN PRN Reason: NAUSEA/VOMITING Medical Necessity - Tobacco Use Smoking Status: Never smoker Tobacco Use: Non-smoker Assessment/Plan All Active Problems (Last Reviewed 04/05/18 @ 13:33 by Joy Tran) Hypercalcemia (Acute) Acute kidney injury (Acute) Frequent falls (Acute) Back pain (Acute) 62-year-old female with past medical history of DM 2, lumbar radiculopathy, hyperlipidemia, presented to the emergency department due to frequent falls and confusion. She was noted to have acute kidney injury creatinine 1.42, and hyperglycemia to 360. Serum calcium was 14.8. Chest x-ray revealed no acute disease. EKG revealed normal sinus rhythm, no acute ischemic changes. She was admitted for acute kidney injury, hypercalcemia, leukocytosis, and metabolic encephalopathy. She is being hydrated with isotonic fluids. Serum calcium level has improved. Urine culture grew group B strep, E. coli. Although colony count slow, would empirically treat for E. coli with 3 days oral Cipro. 1. Hypercalcemia, possible secondary to exogenous calcium intake. No evidence of hyperparathyroidism , vit D toxicity, granulomatous disease, or hyperthyroidism. XR chest , pelvis and R hip unrevealing. LS spine Xray --> DJD. Head CT non contrast negative. Underlying malignancy to be considered if has recurrence. PLAN: await vit D 1,25 SPEP Continue i.v. hydration with repeat lab in a.m. 2. AK I resolved 3. Acute metabolic encephalopathy secondary to hypercalcemia, dehydration Resolved 4. Leukemoid reaction NOS 5. E. coli urinary tract infection Low colony count, but would treat Cipro 500 twice daily ?3 days 6. DM 2 -continue Tradjenta, glimepiride, sliding scale insulin 7. DVT prophylaxis Subcu heparin Code Visit Inpatient E&M: 78034 Subs Hosp L2
--- NOTE | 2018-04-10 11:26 | PN_ITS ---
Patient Problems: Active and Suspected Problems (Last Reviewed 04/05/18 @ 13:33 by Joy Tran) Hypercalcemia (Acute) Acute kidney injury (Acute) Frequent falls (Acute) Back pain (Acute) Subjective: Patient reports no acute issues Objective: Is ambulatory with walker Vitals/I&O's: Vital Signs Temp Pulse Resp BP Pulse Ox 98.1 F 81 16 168/90 H 93 04/10/18 07:29 04/10/18 07:29 04/10/18 07:29 04/10/18 07:29 04/10/18 07:29 Oxygen Delivery Method Room Air Weight: 170 lb 0.01 oz Body Mass Index (BMI) 31.1 Intake and Output for Last 24 Hours 04/08/18 04/09/18 04/10/18 23:59 23:59 23:59 Intake Total 140 / 140 4443 / 4443 1943 / 1943 Output Total 600 / 600 1600 / 1600 1075 / 1075 Balance -460 / -460 2843 / 2843 868 / 868 General: Alert, Oriented x3 Oral: Moist Mucosa Neck: No JVD, Trachea Midline, Thyroid Normal Size and Texture Lungs: Clear to auscultation Cardiovascular: Regular rate, Regular Rhythm, Normal S1, Normal S2 Abdomen: Bowel Sounds Present Extremities: No edema Skin: No rashes Psych/Mental Status: Normal Affect, Appropriate Microbiology Past 72 Hours 04/08/18 17:40 Urine, Clean Catch Urine Culture - Preliminary Presumptive E. coli Streptococcus group B Laboratory Results 04/09/18 13:05: POC Glucose 285 H 04/09/18 16:59: POC Glucose 280 H 04/09/18 21:41: POC Glucose 274 H 04/10/18 06:45: WBC 12.2 H, RBC 4.18 L, Hgb 12.2, Hct 36.3 L, MCV 86.8, MCH 29.2 , MCHC 33.6, RDW 12.5, RDW Differential 39.7, Plt Count 233, MPV 10.2, Immature Gran % (Auto) 0.100, Neut % (Auto) 80.8 H, Lymph % (Auto) 12.2 L, [place] % (Auto) 6.6, Eos % (Auto) 0.1, Baso % (Auto) 0.2, Absolute Neuts (auto) 9.9 H, Absolute Lymphs (auto) 1.49, Total Counted Not Reportable 04/10/18 06:45: Sodium 143, Potassium 3.4 L, Chloride 99, Carbon Dioxide 35.0 H , Anion Gap 9, BUN 31 H, Creatinine 0.92, Estim Creat Clear Calc 50.15, Est GFR (MDRD) Af Amer 80, Est GFR (MDRD) Non-Af 66, BUN/Creatinine Ratio 33.8 H, Glucose 286 H, Calcium 10.8 H 04/10/18 06:45: POC Glucose 296 H 04/10/18 10:45: POC Glucose 217 H Current Medications Acetaminophen (Tylenol) 650 mg PO Q6H PRN PRN PRN Reason: Fever, headache, pain Aspirin (Aspirin) 325 mg PO DAILYCM [facility] Last Admin: 04/10/18 07:41 Dose: 325 mg Glimepiride (Amaryl) 1 mg PO QAM [facility] Last Admin: 04/10/18 10:48 Dose: 1 mg Heparin Sodium (Porcine) (Heparin Na) 5,000 unit SC Q8 [facility] Last Admin: 04/10/18 06:39 Dose: 5,000 u Sodium Chloride () 1,000 mls @ 150 mls/hr IV .Q6H40M [facility] Last Admin: 04/10/18 06:46 Dose: 150 mls/hr Insulin Human Lispro (Humalog Kwikpen (Bkc)) 0 unit SC ACHS [facility] PRN Reason: Protocol Last Admin: 04/10/18 10:51 Dose: 2 unit Linagliptin (Tradjenta) 5 mg PO DAILY [facility] Last Admin: 04/10/18 10:48 Dose: 5 mg Magnesium Hydroxide (Milk Of Magnesia) 30 ml PO DAILY PRN PRN PRN Reason: Constipation Last Admin: 04/09/18 03:33 Dose: 30 ml Nutritional Formula (Lactose Free) (Glucerna Shake) 120 ml PO 4X/DAY [facility] Last Admin: 04/10/18 10:50 Dose: 120 ml Ondansetron HCl (Zofran) 4 mg IV Q6H PRN PRN PRN Reason: NAUSEA/VOMITING Last Admin: 04/10/18 07:00 Dose: 4 mg Promethazine HCl (Phenergan) 12.5 mg IM Q4H PRN PRN PRN Reason: NAUSEA/VOMITING Medical Necessity - Tobacco Use Smoking Status: Never smoker Tobacco Use: Non-smoker Assessment/Plan All Active Problems (Last Reviewed 04/05/18 @ 13:33 by Joy Tran) Hypercalcemia (Acute) Acute kidney injury (Acute) Frequent falls (Acute) Back pain (Acute) 62-year-old female with past medical history of DM 2, lumbar radiculopathy, hyperlipidemia, presented to the emergency department due to frequent falls and confusion. She was noted to have acute kidney injury creatinine 1.42, and hyperglycemia to 360. Serum calcium was 14.8. Chest x-ray revealed no acute disease. EKG revealed normal sinus rhythm, no acute ischemic changes. She was admitted for acute kidney injury, hypercalcemia, leukocytosis, and metabolic encephalopathy. She is being hydrated with isotonic fluids. Serum calcium level has improved. Urine culture grew group B strep, E. coli. Although colony count slow, would empirically treat for E. coli with 3 days oral Cipro. 1. Hypercalcemia, possible secondary to exogenous calcium intake. No evidence of hyperparathyroidism , vit D toxicity, granulomatous disease, or hyperthyroidism. XR chest , pelvis and R hip unrevealing. LS spine Xray --> DJD. Head CT non contrast negative. Underlying malignancy to be considered if has recurrence. PLAN: await vit D 1,25 SPEP Continue i.v. hydration with repeat lab in a.m. 2. AK I resolved 3. Acute metabolic encephalopathy secondary to hypercalcemia, dehydration Resolved 4. Leukemoid reaction NOS 5. E. coli urinary tract infection Low colony count, but would treat Cipro 500 twice daily ?3 days 6. DM 2 -continue Tradjenta, glimepiride, sliding scale insulin 7. DVT prophylaxis Subcu heparin Code Visit Inpatient E&M: 65193 Subs Hosp L2
[2018-04-10 16:31] LABS: Bedside Glucose 299 mg/dL (70-110)
[2018-04-10] MEDS: Acetaminophen 325 MG Tablet 650 MG PO (19:36)
[2018-04-10 22:31] LABS: Bedside Glucose 272 mg/dL (70-110)
[2018-04-10] MEDS: Ciprofloxacin 500 MG Tablet PO (22:34)
[2018-04-11] VITALS (11 sets, daily range): BP systolic 138–178; BP diastolic 78–91; PULSE 72–88; RESP 16–18; TEMP 36.6–37.1; O2SAT 91–99
[2018-04-11] MEDS: Acetaminophen 325 MG Tablet 650 MG PO ×3 (02:18→22:32)
[2018-04-11] MEDS: 0.9% Normal Saline 1,000 ML 150 ML IV (05:06)
[2018-04-11] MEDS: Insulin Lispro 100 UNIT/ML INSULN.PEN SC ×4 (06:49→22:25)
[2018-04-11] MEDS: Heparin Injection (Vial) 5,000 UNIT/ML VIAL 5000 UNIT SC ×2 (06:50→14:49)
[2018-04-11 07:00] LABS: Bedside Glucose 240 mg/dL (70-110)
[2018-04-11] MEDS: Aspirin 325 MG Tablet PO (08:35)
[2018-04-11] MEDS: LINAGLIPTIN 5 MG TABLET PO (10:44)
[2018-04-11] MEDS: Glimepiride 1 MG Tablet PO (10:44)
[2018-04-11] MEDS: Ciprofloxacin 500 MG Tablet PO ×2 (10:44→22:26)
[2018-04-11] MEDS: Glucerna Shake 120 ML LIQUID PO ×3 (10:44→17:02)
[2018-04-11 10:48] LABS: Hematocrit 33.2 % (37-47); Hemoglobin 11.3 g/dl (12.0-15.0); Mean Corpuscular Hgb 29.4 pg (27.0-32.0); Mean Corpuscular Volume 86.5 fL (81-99); Mean Platelet Vol. 9.9 fl (6.2-12.0); Platelet Count 224 K/mm3 (150-450); RBC Distribution Width CV 12.5 % (11.6-14.6); RBC Distribution Width SD 39.8 fl (35.1-43.9); Red Blood Count 3.84 M/mm3 (4.2-5.4); White Blood Count 10.8 K/mm3 (4.4-11.0)
[2018-04-11 10:50] LABS: Scan Indicated on CBC? Y/N NO
[2018-04-11 11:17] LABS: Anion Gap 8 (5-15); BUN 24 mg/dL (7-18); BUN/Creat Ratio 28.3 RATIO (10-20); Chloride 103 mmol/L (98-107); Creatinine, Serum 0.85 mg/dL (0.55-1.02); EST Glomerular Filtration Rate 72 mL/min (>60); Est Glom Filt Rate - Afr Amer 87 mL/min (>60); Estimated Creatinine Clearance 54.27 ml/min; Glucose 262 mg/dL (74-106); Potassium 3.6 mmol/L (3.5-5.1); Sodium Level 140 mmol/L (136-145)
--- NOTE | 2018-04-11 11:36 | PCM.PN.HOSP ---
Patient Problems: Active and Suspected Problems (Last Reviewed 04/11/18 @ 11:36 by Latoya Kelly MD) Hypercalcemia (Acute) Acute kidney injury (Acute) Frequent falls (Acute) Back pain (Acute) Subjective: Patient complained of right back pain radiating down right leg. X-ray was normal. Tylenol effective for pain. Nausea and emesis is resolved. She ate most of meals. Objective: Patient is in no acute distress. Vitals/I&O's: Vital Signs Temp Pulse Resp BP Pulse Ox 98.4 F 76 16 166/91 H 96 04/11/18 10:45 04/11/18 10:45 04/11/18 10:45 04/11/18 10:45 04/11/18 10:45 Oxygen Delivery Method Room Air Weight: 170 lb 0.01 oz Body Mass Index (BMI) 31.1 Intake and Output for Last 24 Hours 04/09/18 04/10/18 04/11/18 23:59 23:59 23:59 Intake Total 4443 / 4443 1943 / 1943 2130 / 2130 Output Total 1600 / 1600 1075 / 1075 401 / 401 Balance 2843 / 2843 868 / 868 1729 / 1729 General: Oriented x3, Cooperative HEENT: Atraumatic Oral: Moist Mucosa Neck: No JVD Lungs: Clear to auscultation Cardiovascular: Regular Rhythm, Normal S1, Normal S2 Abdomen: Non-Distended Extremities: No edema Psych/Mental Status: Normal Affect, Appropriate Microbiology Past 72 Hours 04/08/18 17:40 Urine, Clean Catch Urine Culture - Final Presumptive E. coli Streptococcus group B Laboratory Results 04/08/18 16:55: Ionized Calcium 8.4 H 04/10/18 16:03: POC Glucose 299 H 04/10/18 22:24: POC Glucose 272 H 04/11/18 06:44: POC Glucose 240 H 04/11/18 10:30: WBC 10.8, RBC 3.84 L, Hgb 11.3 L, Hct 33.2 L, MCV 86.5, MCH 29.4, MCHC 34.0, RDW 12.5, RDW Differential 39.8, Plt Count 224, MPV 9.9 04/11/18 10:30: Sodium 140, Potassium 3.6, Chloride 103, Carbon Dioxide 29.0, Anion Gap 8, BUN 24 H, Creatinine 0.85, Estim Creat Clear Calc 54.27, Est GFR (MDRD) Af Amer 87, Est GFR (MDRD) Non-Af 72, BUN/Creatinine Ratio 28.3 H, Glucose 262 H, Calcium 9.0 Current Medications Acetaminophen (Tylenol) 650 mg PO Q6H PRN PRN PRN Reason: Fever, headache, pain Last Admin: 04/11/18 08:35 Dose: 650 mg [facility]) [facility] Last Admin: 04/11/18 08:35 Dose: 325 mg Ciprofloxacin HCl (Cipro) 500 mg PO BID [facility] Stop: 04/13/18 10:01 Last Admin: 04/11/18 10:44 Dose: 500 mg Glimepiride (Amaryl) 1 mg PO QAM [facility] Last Admin: 04/11/18 10:44 Dose: 1 mg Heparin Sodium (Porcine) (Heparin Na) 5,000 unit SC Q8 [facility] Last Admin: 04/11/18 06:50 Dose: 5,000 u Sodium Chloride () 1,000 mls @ 150 mls/hr IV .Q6H40M [facility] Last Admin: 04/11/18 05:06 Dose: 150 mls/hr Insulin Human Lispro (Humalog Kwikpen (Bkc)) 0 unit SC ACHS [facility] PRN Reason: Protocol Last Admin: 04/11/18 06:49 Dose: 3 unit Linagliptin (Tradjenta) 5 mg PO DAILY [facility] Last Admin: 04/11/18 10:44 Dose: 5 mg Magnesium Hydroxide (Milk Of Magnesia) 30 ml PO DAILY PRN PRN PRN Reason: Constipation Last Admin: 04/09/18 03:33 Dose: 30 ml Nutritional Formula (Lactose Free) (Glucerna Shake) 120 ml PO 4X/DAY [facility] Last Admin: 04/11/18 10:44 Dose: 120 ml Ondansetron HCl (Zofran) 4 mg IV Q6H PRN PRN PRN Reason: NAUSEA/VOMITING Last Admin: 04/10/18 07:00 Dose: 4 mg Promethazine HCl (Phenergan) 12.5 mg IM Q4H PRN PRN PRN Reason: NAUSEA/VOMITING Medical Necessity - Tobacco Use Smoking Status: Never smoker Tobacco Use: Non-smoker Assessment/Plan All Active Problems (Last Reviewed 04/11/18 @ 11:36 by Latoya Kelly MD) Hypercalcemia (Acute) Acute kidney injury (Acute) Frequent falls (Acute) Back pain (Acute) 62-year-old female with past medical history of DM 2, lumbar radiculopathy, hyperlipidemia, presented to the emergency department due to frequent falls and confusion. She was noted to have acute kidney injury creatinine 1.42, and hyperglycemia to 360. Serum calcium was 14.8. Chest x-ray revealed no acute disease. EKG revealed normal sinus rhythm, no acute ischemic changes. She was admitted for acute kidney injury, hypercalcemia, leukocytosis, and metabolic encephalopathy. She was hydrated with isotonic fluids. Serum calcium level has improved. Urine culture grew group B strep, E. coli. Although colony count was low, she was empirically treat for E. coli with 3 days oral Cipro. 04/11/2018 Laboratories today indicate normalization of serum calcium at 9.0. d#2/3 Cipro She feels much improved but still somewhat weak and using walker ambulation which is new IV Fluids stopped We will recheck labs in a.m. with discharge home if normocalcemia is maintained 1. Hypercalcemia, felt secondary to excessive exogenous calcium intake with Tums in the setting of use of NSAID and acute kidney injury. RESOLVED with hydration No evidence of hyperparathyroidism , vit D toxicity, granulomatous disease, or hyperthyroidism. XR chest , pelvis and R hip unrevealing. LS spine Xray --> DJD. Head CT non contrast negative. Underlying malignancy to be considered if has recurrence. PLAN: stop hydration await vit D 1,25 SPEP pending 2. AK I resolved 3. Acute metabolic encephalopathy secondary to hypercalcemia, dehydration Resolved 4. Leukemoid reaction NOS resolved White blood count 10.8 5. E. coli urinary tract infection d#2/3 oral Cipro 6. DM 2 -continue glimepiride, Tradjenta, insulin sliding scale At discharge she may resume her usual glimepiride, Januvia, metformin 7. weakness slowly improving 8. DVT prophylaxis Subcu heparin Code Visit Inpatient E&M: 06598 Subs Hosp L2
--- NOTE | 2018-04-11 11:40 | PN_ITS ---
Patient Problems: Active and Suspected Problems (Last Reviewed 04/11/18 @ 11:36 by Latoya Kelly MD) Hypercalcemia (Acute) Acute kidney injury (Acute) Frequent falls (Acute) Back pain (Acute) Subjective: Patient complained of right back pain radiating down right leg. X-ray was normal. Tylenol effective for pain. Nausea and emesis is resolved. She ate most of meals. Objective: Patient is in no acute distress. Vitals/I&O's: Vital Signs Temp Pulse Resp BP Pulse Ox 98.4 F 76 16 166/91 H 96 04/11/18 10:45 04/11/18 10:45 04/11/18 10:45 04/11/18 10:45 04/11/18 10:45 Oxygen Delivery Method Room Air Weight: 170 lb 0.01 oz Body Mass Index (BMI) 31.1 Intake and Output for Last 24 Hours 04/09/18 04/10/18 04/11/18 23:59 23:59 23:59 Intake Total 4443 / 4443 1943 / 1943 2130 / 2130 Output Total 1600 / 1600 1075 / 1075 401 / 401 Balance 2843 / 2843 868 / 868 1729 / 1729 General: Oriented x3, Cooperative HEENT: Atraumatic Oral: Moist Mucosa Neck: No JVD Lungs: Clear to auscultation Cardiovascular: Regular Rhythm, Normal S1, Normal S2 Abdomen: Non-Distended Extremities: No edema Psych/Mental Status: Normal Affect, Appropriate Microbiology Past 72 Hours 04/08/18 17:40 Urine, Clean Catch Urine Culture - Final Presumptive E. coli Streptococcus group B Laboratory Results 04/08/18 16:55: Ionized Calcium 8.4 H 04/10/18 16:03: POC Glucose 299 H 04/10/18 22:24: POC Glucose 272 H 04/11/18 06:44: POC Glucose 240 H 04/11/18 10:30: WBC 10.8, RBC 3.84 L, Hgb 11.3 L, Hct 33.2 L, MCV 86.5, MCH 29.4 , MCHC 34.0, RDW 12.5, RDW Differential 39.8, Plt Count 224, MPV 9.9 04/11/18 10:30: Sodium 140, Potassium 3.6, Chloride 103, Carbon Dioxide 29.0, Anion Gap 8, BUN 24 H, Creatinine 0.85, Estim Creat Clear Calc 54.27, Est GFR ( MDRD) Af Amer 87, Est GFR (MDRD) Non-Af 72, BUN/Creatinine Ratio 28.3 H, Glucose 262 H, Calcium 9.0 Current Medications Acetaminophen (Tylenol) 650 mg PO Q6H PRN PRN PRN Reason: Fever, headache, pain Last Admin: 04/11/18 08:35 Dose: 650 mg [facility] Last Admin: 04/11/18 08:35 Dose: 325 mg Ciprofloxacin HCl (Cipro) 500 mg PO BID [facility] Stop: 04/13/18 10:01 Last Admin: 04/11/18 10:44 Dose: 500 mg Glimepiride (Amaryl) 1 mg PO QAM [facility] Last Admin: 04/11/18 10:44 Dose: 1 mg Heparin Sodium (Porcine) (Heparin Na) 5,000 unit SC Q8 [facility] Last Admin: 04/11/18 06:50 Dose: 5,000 u Sodium Chloride () 1,000 mls @ 150 mls/hr IV .Q6H40M [facility] Last Admin: 04/11/18 05:06 Dose: 150 mls/hr Insulin Human Lispro (Humalog Kwikpen (Bkc)) 0 unit SC ACHS [facility] PRN Reason: Protocol Last Admin: 04/11/18 06:49 Dose: 3 unit Linagliptin (Tradjenta) 5 mg PO DAILY [facility] Last Admin: 04/11/18 10:44 Dose: 5 mg Magnesium Hydroxide (Milk Of Magnesia) 30 ml PO DAILY PRN PRN PRN Reason: Constipation Last Admin: 04/09/18 03:33 Dose: 30 ml Nutritional Formula (Lactose Free) (Glucerna Shake) 120 ml PO 4X/DAY [facility] Last Admin: 04/11/18 10:44 Dose: 120 ml Ondansetron HCl (Zofran) 4 mg IV Q6H PRN PRN PRN Reason: NAUSEA/VOMITING Last Admin: 04/10/18 07:00 Dose: 4 mg Promethazine HCl (Phenergan) 12.5 mg IM Q4H PRN PRN PRN Reason: NAUSEA/VOMITING Medical Necessity - Tobacco Use Smoking Status: Never smoker Tobacco Use: Non-smoker Assessment/Plan All Active Problems (Last Reviewed 04/11/18 @ 11:36 by Latoya Kelly MD) Hypercalcemia (Acute) Acute kidney injury (Acute) Frequent falls (Acute) Back pain (Acute) 62-year-old female with past medical history of DM 2, lumbar radiculopathy, hyperlipidemia, presented to the emergency department due to frequent falls and confusion. She was noted to have acute kidney injury creatinine 1.42, and hyperglycemia to 360. Serum calcium was 14.8. Chest x-ray revealed no acute disease. EKG revealed normal sinus rhythm, no acute ischemic changes. She was admitted for acute kidney injury, hypercalcemia, leukocytosis, and metabolic encephalopathy. She was hydrated with isotonic fluids. Serum calcium level has improved. Urine culture grew group B strep, E. coli. Although colony count was low, she was empirically treat for E. coli with 3 days oral Cipro. 04/11/2018 Laboratories today indicate normalization of serum calcium at 9.0. d#2/3 Cipro She feels much improved but still somewhat weak and using walker ambulation which is new IV Fluids stopped We will recheck labs in a.m. with discharge home if normocalcemia is maintained 1. Hypercalcemia, felt secondary to excessive exogenous calcium intake with Tums in the setting of use of NSAID and acute kidney injury. RESOLVED with hydration No evidence of hyperparathyroidism , vit D toxicity, granulomatous disease, or hyperthyroidism. XR chest , pelvis and R hip unrevealing. LS spine Xray --> DJD. Head CT non contrast negative. Underlying malignancy to be considered if has recurrence. PLAN: stop hydration await vit D 1,25 SPEP pending 2. AK I resolved 3. Acute metabolic encephalopathy secondary to hypercalcemia, dehydration Resolved 4. Leukemoid reaction NOS resolved White blood count 10.8 5. E. coli urinary tract infection d#2/3 oral Cipro 6. DM 2 -continue glimepiride, Tradjenta, insulin sliding scale At discharge she may resume her usual glimepiride, Januvia, metformin 7. weakness slowly improving 8. DVT prophylaxis Subcu heparin Code Visit Inpatient E&M: 89150 Subs Hosp L2
[2018-04-11 11:55] LABS: Bedside Glucose 288 mg/dL (70-110)
[2018-04-11 17:05] LABS: Bedside Glucose 280 mg/dL (70-110)
[2018-04-11 22:40] LABS: Bedside Glucose 281 mg/dL (70-110)
[2018-04-12] VITALS (8 sets, daily range): BP systolic 162–173; BP diastolic 84–89; PULSE 73–82; RESP 16–18; TEMP 36.6–36.9; O2SAT 97–98
[2018-04-12 05:47] LABS: Hematocrit 33.9 % (37-47); Hemoglobin 11.5 g/dl (12.0-15.0); Mean Corp Hgb Conc 33.9 g/gl (32-36); Mean Corpuscular Volume 85.6 fL (81-99); Mean Platelet Vol. 9.7 fl (6.2-12.0); Platelet Count 216 K/mm3 (150-450); RBC Distribution Width CV 12.4 % (11.6-14.6); RBC Distribution Width SD 38.8 fl (35.1-43.9); Red Blood Count 3.96 M/mm3 (4.2-5.4); White Blood Count 9.5 K/mm3 (4.4-11.0)
[2018-04-12 06:04] LABS: Scan Indicated on CBC? Y/N NO
[2018-04-12 06:07] LABS: Anion Gap 10 (5-15); BUN 21 mg/dL (7-18); BUN/Creat Ratio 25.2 RATIO (10-20); Calcium,Total 8.9 mg/dL (8.5-10.1); Chloride 102 mmol/L (98-107); Creatinine, Serum 0.83 mg/dL (0.55-1.02); EST Glomerular Filtration Rate 74 mL/min (>60); Est Glom Filt Rate - Afr Amer 89 mL/min (>60); Estimated Creatinine Clearance 55.58 ml/min; Glucose 234 mg/dL (74-106); Potassium 3.6 mmol/L (3.5-5.1); Sodium Level 141 mmol/L (136-145)
[2018-04-12] MEDS: Insulin Lispro 100 UNIT/ML INSULN.PEN SC ×3 (06:24→16:31)
[2018-04-12] MEDS: Heparin Injection (Vial) 5,000 UNIT/ML VIAL 5000 UNIT SC ×2 (06:24→15:05)
[2018-04-12] MEDS: Acetaminophen 325 MG Tablet 650 MG PO (06:24)
[2018-04-12 06:31] LABS: Bedside Glucose 247 mg/dL (70-110)
[2018-04-12] MEDS: Ciprofloxacin 500 MG Tablet PO (09:47)
[2018-04-12] MEDS: Glimepiride 1 MG Tablet PO (09:47)
[2018-04-12] MEDS: LINAGLIPTIN 5 MG TABLET PO (09:47)
[2018-04-12] MEDS: Aspirin 325 MG Tablet PO (09:49)
[2018-04-12] MEDS: Glucerna Shake 120 ML LIQUID PO (09:50)
[2018-04-12 11:50] LABS: Bedside Glucose 309 mg/dL (70-110)
[2018-04-12] MEDS: Famotidine 20 MG Tablet 40 MG PO (12:37)
[2018-04-12] MEDS: Mag Hydrox/Al Hydrox/Simeth 30 ML UDC PO (12:37)
[2018-04-12 16:35] LABS: Bedside Glucose 254 mg/dL (70-110)
--- NOTE | 2018-04-12 16:54 | RAD_ITS ---
STUDY: X-RAY - LEFT FOOT CLINICAL: Female, 62 years old. Status post fall attention great toe TECHNIQUE: 3 view(s) of the foot. COMPARISON: None. FINDINGS: The minimal calcaneal and Achilles spur. Normal visualized subtalar, talonavicular, calcaneocuboid, tarsal and tarsometatarsal articulations. There is degenerative change of the tarsotarsal joints. There is demineralization of the metatarsi. Normal metatarsophalangeal joint of the great toe. Normal tibial and fibular sesamoid bones. Normal interphalangeal joint of the great toe. Normal phalanges of the great toe. Normal second through fifth metatarsophalangeal joints. Normal interphalangeal joints and phalanges of the lesser toes. There are small vascular calcifications. RAD/Foot 2 Views IMPRESSION: Bony demineralization. Degenerative change. No visualized fracture. Electronically Signed: Julia Bateman MD at 19:46 EDT Tel , Service support ,
--- NOTE | 2018-04-12 19:36 | PCM.DC ---
- Discharge Diagnoses Current Active Problems: Current Active and Chronic Problems (Last Reviewed 04/11/18 @ 11:36 by Latoya Kelly MD) Hypercalcemia (Acute) Acute kidney injury (Acute) Frequent falls (Acute) Back pain (Acute) Type 2 diabetes mellitus (Chronic) You will use the following diet at home:: Calorie/Carbohydrate Controlled (specify 1200, 1400, etc) - 1800 adiel Your liquids should be the consistency of: Regular/Thin Discharge Activity: Return to Normal Activity Return to work on:: 04/15/18 Weight Bearing Status: Full weight bearing Additional Instructions: do not take TUMS, you may take Prilosec 20 mg daily if you dont take Protonix. you may take Mylanta II two tablespoons 4x a day as needed for indigestion Allergies/Adverse Reactions: Allergies lisinopril Allergy (Verified 04/05/18 13:33) Rash Medications to take at Discharge aspirin 325 mg tablet 325 mg PO DAILY 09/09/17 glimepiride 1 mg tablet 4 mg PO BID 09/09/17 metformin 1,000 mg tablet 1,000 mg PO BID 09/09/17 cyclobenzaprine 10 mg tablet 10 mg PO TID PRN #20 tab 04/05/18 Sitagliptin Phosphate [Januvia] 100 mg PO DAILY 04/08/18 Pantoprazole Sodium [Protonix] 40 mg PO DAILY #30 tab 04/12/18 The following prescriptions were given: Pantoprazole Sodium [Protonix] 40 mg PO DAILY #30 tab Primary Care Physician: Hever Otoole DO [Primary Care Provider] - Please follow up with your Primary Care Physician in: tomorrow or Thursday concerning back to work and your foot x-ray results Test Results: Test results from this visit will be discussed in further detail at your follow-up appointment, if applicable.
--- NOTE | 2018-04-12 19:40 | DCINST_ITS ---
- Discharge Diagnoses Current Active Problems: Current Active and Chronic Problems (Last Reviewed 04/11/18 @ 11:36 by Latoya Kelly MD) Hypercalcemia (Acute) Acute kidney injury (Acute) Frequent falls (Acute) Back pain (Acute) Type 2 diabetes mellitus (Chronic) You will use the following diet at home:: Calorie/Carbohydrate Controlled ( specify 1200, 1400, etc) - 1800 adiel Your liquids should be the consistency of: Regular/Thin Discharge Activity: Return to Normal Activity Return to work on:: 04/15/18 Weight Bearing Status: Full weight bearing Additional Instructions: do not take TUMS, you may take Prilosec 20 mg daily if you dont take Protonix. you may take Mylanta II two tablespoons 4x a day as needed for indigestion Allergies/Adverse Reactions: Allergies lisinopril Allergy (Verified 04/05/18 13:33) Rash Medications to take at Discharge aspirin 325 mg tablet 325 mg PO DAILY 09/09/17 glimepiride 1 mg tablet 4 mg PO BID 09/09/17 metformin 1,000 mg tablet 1,000 mg PO BID 09/09/17 cyclobenzaprine 10 mg tablet 10 mg PO TID PRN #20 tab 04/05/18 Sitagliptin Phosphate [Januvia] 100 mg PO DAILY 04/08/18 Pantoprazole Sodium [Protonix] 40 mg PO DAILY #30 tab 04/12/18 The following prescriptions were given: Pantoprazole Sodium [Protonix] 40 mg PO DAILY #30 tab Primary Care Physician: Hever Otoole DO [Primary Care Provider] - Please follow up with your Primary Care Physician in: tomorrow or Thursday concerning back to work and your foot x-ray results Test Results: Test results from this visit will be discussed in further detail at your follow- up appointment, if applicable.
[2018-04-14 11:13] LABS: Vitamin D 1,25-Dihydroxy 6.9 pg/mL (19.9-79.3)
[2018-04-14 14:54] LABS: PROELU- Albumin, Urine 27.6 % (.); PROELU- Alpha-1-Globulin,Ur 3.7 % (.); PROELU- Alpha-2-Globulin,Ur 19.6 % (.); PROELU- Beta Globulin, Ur 25.1 % (.); Total Protein, Ur 15.8 mg/dL (Not Estab.)
--- NOTE | 2018-04-14 19:46 | PCM.DC.SUM ---
Discharge Date and Diagnosis Date of Admission: 04/08/18 Date of Discharge: 04/12/18 - Primary Discharge Diagnosis #1 hypercalcemia secondary to excessive oral intake of calcium carbonate for treatment of GERD #2 acute kidney injury #3 acute metabolic encephalopathy #4 bacteriuria #5 type 2 diabetes #6 probable GERD - Secondary Discharge Diagnosis Chronic Problems (Last Reviewed 04/11/18 @ 11:36 by Latoya Kelly MD) Type 2 diabetes mellitus (Chronic) Lumbar radiculopathy (Chronic) Hospital Course and Treatment Operations: None Procedures: None Summary of Care Provided: The patient is a 62 year old F who was seen in the emergency room was admitted to the hospital with a chief complaint of frequent falls over the last 48 hours. brought her in for evaluation. Labs obtained in the emergency room revealed a CBC with a white count of 16.8, glucose was 360, sodium was 134, BUN was 32, and creatinine was 1.42. Calcium was elevated at 14.8. Chest x-ray showed no acute process, CT of the head was normal. On talking with the patient and her , it was noted that the patient took excessive amounts of calcium on a daily basis (times). Patient was given IV fluid, she was admitted to the [facility] floor under cardiac monitoring, she was given IV Lasix, and her labs were evaluated. Patient's urine grew out small numbers of E. coli and strep group B which was not felt to be significant. Patient's labs improved during her hospital stay and she became more alert. On 04/12/18, patient was seen and examined felt to be in stable condition for discharge home Discharge Activity: Return to Normal Activity Return to work on:: 04/15/18 Weight Bearing Status: Full weight bearing Home Medications: Medications to take at Discharge aspirin 325 mg tablet 325 mg PO DAILY 09/09/17 glimepiride 1 mg tablet 4 mg PO BID 09/09/17 metformin 1,000 mg tablet 1,000 mg PO BID 09/09/17 cyclobenzaprine 10 mg tablet 10 mg PO TID PRN #20 tab 04/05/18 Sitagliptin Phosphate [Januvia] 100 mg PO DAILY 04/08/18 Pantoprazole Sodium [Protonix] 40 mg PO DAILY #30 tab 04/12/18 Following Prescrptions Were Given to Patient: Pantoprazole Sodium [Protonix] 40 mg PO DAILY #30 tab Primary Care Physician: Hever Otoole DO [Primary Care Provider] - Please follow up with your Primary Care Physician in: tomorrow or Thursday concerning back to work and your foot x-ray results Disposition: Home Minutes spent on discharge:: 32 Patient Condition:: Stable Medical Necessity - Tobacco Use Smoking Status: Never smoker Tobacco Use: Non-smoker Meaningful Use Info Meaningful Use Diagnoses (Choose all that apply): None applicable Code Visit Inpatient E&M: 64975 Disch Hosp
--- NOTE | 2018-04-14 19:51 | DS.PCM_ITS ---
Discharge Date and Diagnosis Date of Admission: 04/08/18 Date of Discharge: 04/12/18 - Primary Discharge Diagnosis #1 hypercalcemia secondary to excessive oral intake of calcium carbonate for treatment of GERD #2 acute kidney injury #3 acute metabolic encephalopathy #4 bacteriuria #5 type 2 diabetes #6 probable GERD - Secondary Discharge Diagnosis Chronic Problems (Last Reviewed 04/11/18 @ 11:36 by Latoya Kelly MD) Type 2 diabetes mellitus (Chronic) Lumbar radiculopathy (Chronic) Hospital Course and Treatment Operations: None Procedures: None Summary of Care Provided: The patient is a 62 year old F who was seen in the emergency room was admitted to the hospital with a chief complaint of frequent falls over the last 48 hours. brought her in for evaluation. Labs obtained in the emergency room revealed a CBC with a white count of 16.8, glucose was 360, sodium was 134 , BUN was 32, and creatinine was 1.42. Calcium was elevated at 14.8. Chest x- ray showed no acute process, CT of the head was normal. On talking with the patient and her , it was noted that the patient took excessive amounts of calcium on a daily basis (times). Patient was given IV fluid, she was admitted to the [facility] floor under cardiac monitoring, she was given IV Lasix, and her labs were evaluated. Patient's urine grew out small numbers of E. coli and strep group B which was not felt to be significant. Patient's labs improved during her hospital stay and she became more alert. On 04/12/18, patient was seen and examined felt to be in stable condition for discharge home Discharge Activity: Return to Normal Activity Return to work on:: 04/15/18 Weight Bearing Status: Full weight bearing Home Medications: Medications to take at Discharge aspirin 325 mg tablet 325 mg PO DAILY 09/09/17 glimepiride 1 mg tablet 4 mg PO BID 09/09/17 metformin 1,000 mg tablet 1,000 mg PO BID 09/09/17 cyclobenzaprine 10 mg tablet 10 mg PO TID PRN #20 tab 04/05/18 Sitagliptin Phosphate [Januvia] 100 mg PO DAILY 04/08/18 Pantoprazole Sodium [Protonix] 40 mg PO DAILY #30 tab 04/12/18 Following Prescrptions Were Given to Patient: Pantoprazole Sodium [Protonix] 40 mg PO DAILY #30 tab Primary Care Physician: Hever Otoole DO [Primary Care Provider] - Please follow up with your Primary Care Physician in: tomorrow or Thursday concerning back to work and your foot x-ray results Disposition: Home Minutes spent on discharge:: 32 Patient Condition:: Stable Medical Necessity - Tobacco Use Smoking Status: Never smoker Tobacco Use: Non-smoker Meaningful Use Info Meaningful Use Diagnoses (Choose all that apply): None applicable Code Visit Inpatient E&M: 53765 Disch Hosp
--- NOTE | 2018-04-15 10:33 | CASEMGMT ---
FOLLOW-UP CALL: Call placed to patient with no response. Voicemail left with return contact information for case technician.
== END 2018-04-12 20:00 | disposition home or self-care (01) | DRG 640 ==
LOC: ED 14:45 → MS3 14:51
PROVIDERS: Family Medicine; Internal Medicine; Admitting Provider Hospitalist; Emergency Provider Emergency Medicine; Family Provider Family Medicine; PCP Family Medicine; Visit Provider Internal Medicine
DX: E83.52 Hypercalcemia (principal); G93.41 Metabolic encephalopathy; N17.9 Acute kidney failure, unspecified; R29.6 Repeated falls; E86.0 Dehydration; D72.823 Leukemoid reaction; Z79.84 Long term (current) use of oral hypoglycemic drugs; E11.65 Type 2 diabetes mellitus with hyperglycemia; K21.9 Gastro-esophageal reflux disease without esophagitis; T47.1X5A Adverse effect of other antacids and anti-gastric-secretion drugs, initial encounter; R82.71 Bacteriuria; M54.16 Radiculopathy, lumbar region
CPT/HCPCS: 36415; 70450; 71045; 72100; 73502; 73620; 80048; 80053; 80076; 81001; 82306; 82330; 82550; 82652; 82962; 83690; 83970; 84100; 84166; 84443; 85025; 85027; 85610; 85730; 87086; 87088; 93005; 97110; 97116; 97162; 97166; 97530; 97802; 99283; 99406; J7030; A4216; J1940; J2405

== ENCOUNTER → 2018-05-17 16:08 | Outpatient (CLI) | payer OTHER, SELFPAY ==
--- NOTE | 2018-05-17 16:21 | MRI_ITS ---
STUDY: MRI LUMBAR SPINE WITHOUT CONTRAST REASON FOR EXAM: Female, 62 years old. Back pain, radicular features lower extremities. TECHNIQUE: Standardized fat and water weighted pulse sequences were obtained in the sagittal and axial planes. COMPARISON: None FINDINGS: T12-L1: Normal endplates. Normal disc height, hydration and morphology. Normal bilateral facet joints. Normal central canal and bilateral lateral recesses. Normal bilateral intervertebral neural foramina. Normal lumbar lordosis. There is no substantial scoliosis. Normal conus medullaris that terminates at the T12-L1 level. L1-2: Normal endplates. Disc dehydration. Normal bilateral facet joints. Normal central canal and bilateral lateral recesses. Normal bilateral intervertebral neural foramina. L2-3: Normal endplates. Disc dehydration. Normal bilateral facet joints. Normal central canal and bilateral lateral recesses. Normal bilateral intervertebral neural foramina. L3-4: There is marked disc space narrowing and fatty endplate changes. There is mild spondylosis. No canal stenosis. There is moderate facet hypertrophy. Foraminal encroachment is mild on the left and moderate on the right due to spurring and facet hypertrophy. L4-5: Disc dehydration and moderate disc space narrowing. There is a mild, noncompressive spondylotic bar. Mild facet hypertrophy. No canal stenosis. There is mild to moderate foraminal stenosis, greater on the left, due to spurring and facet hypertrophy. L5-S1: Normal endplates. Normal disc height, hydration and morphology. Normal bilateral facet joints. Normal central canal and bilateral lateral recesses. Normal bilateral intervertebral neural foramina. Normal visualized sacral ala. Normal visualized paraspinous soft tissue structures. MRI/Spine Lumbar (Routine) IMPRESSION: 1. Foraminal encroachment at L3-4 and L4-5. 2. No compressive disc disease or canal stenosis. Electronically Signed: Brittni Mcdermott MD at 20:16 EDT Tel , Service support ,
== END ==
PROVIDERS: Family Provider Family Medicine; PCP Family Medicine; Visit Provider Family Medicine
DX: M54.17 Radiculopathy, lumbosacral region (principal)
CPT/HCPCS: 72148

== ENCOUNTER → 2018-05-25 17:00 | Outpatient (CLI) | payer OTHER, SELFPAY ==
--- NOTE | 2018-05-25 17:08 | BI_ITS ---
MAMMOGRAPHY - BILATERAL SCREENING REASON FOR EXAM: Female, 62 years old. Routine annual screening examination. PERTINENT HISTORY: Non-contributory. TECHNIQUE: Digital bilateral breast charisse (3D mammographic acquisition) in the CC and MLO projections. 2-D mediolateral oblique (MLO) and craniocaudad (CC) views of both breasts were obtained. CAD: Full Field Digital Mammography with Computer Added Detection was performed. COMPARISON: Comparison is made with prior study dated January 11, 2014 and March 13, 2011. FINDINGS: Breast Composition: The breasts are heterogeneously dense, which may obscure small masses. There are no dominant masses or suspicious calcifications. Stable small benign-appearing bilateral axillary lymph nodes. No other significant abnormalities are identified. There has been no significant change since the prior study. BI/SCREENING MAMM (CAD), BILAT IMPRESSION: Stable bilateral screening mammogram. Yearly follow-up mammogram recommended. (A) ASSESSMENT CATEGORY: BIRADS Category 2: Benign. A letter regarding these results will be sent to the patient by the facility within 30 days. Approximately 10% of breast cancers are not detected by mammography. A normal mammogram should not delay biopsy of a clinically suspicious abnormality. [id number] Electronically Signed: Ibrahima Gutierrez MD at 8:08 EDT Tel [phone], Service support ,
== END ==
PROVIDERS: Family Provider Family Medicine; PCP Family Medicine; Visit Provider Family Medicine
DX: Z12.31 Encounter for screening mammogram for malignant neoplasm of breast (principal)
CPT/HCPCS: 77063; 77067

== ENCOUNTER 2018-07-26 09:26 | Day surgery (SDC) | payer OTHER, SELFPAY ==
[2018-07-26 10:06] VITALS: BP 133/76; PULSE 86; RESP 16; TEMP 36.8; O2SAT 100; BMI 28.5
[2018-07-26 10:21] LABS: Bedside Glucose 275 mg/dL (70-110)
[2018-07-26] MEDS: Insulin Lispro 100 UNIT/ML INSULN.PEN 6 UNIT SC (10:41)
--- NOTE | 2018-07-26 10:50 | RAD_ITS ---
PROCEDURE: Caudal block. DATE OF EXAMINATION: July 26, 2018. INDICATION: Female, 62 years old. Low back pain. FLUOROSCOPY TIME (if supplied): (0:05) minutes/seconds. 2 images were obtained. The spinal needle is seen along the posterior mid aspect of the sacrum. RAD/Fluor Guidance for Spine Inj IMPRESSION: Intraoperative imaging for sacral block. Electronically Signed: Ibrahima Gutierrez MD at 15:11 EST Tel [phone], Service support ,
[2018-07-26 10:58] VITALS: BP 124/74; BP 133/76; PULSE 81; RESP 16; TEMP 36.4; O2SAT 100
[2018-07-26 11:05] VITALS: BP 131/78; BP 133/76; PULSE 83; RESP 16; O2SAT 97
[2018-07-26 11:10] VITALS: BP 112/78; BP 133/76; PULSE 80; RESP 16; O2SAT 100
[2018-07-26 11:14] VITALS: BP 133/76; BP 135/80; PULSE 80; RESP 16; TEMP 36.8; O2SAT 100
--- NOTE | 2018-07-26 11:25 | OP.PCM_ITS ---
Problem List (1) Degeneration of intervertebral disc of lumbosacral region Status: Chronic (2) Radiculopathy of lumbosacral region Status: Chronic (3) Lumbar radiculopathy Status: Chronic Report of Operation Date of Procedure: 07/26/18 Pre-Operative Diagnosis: Lumbosacral radiculopathy, lumbosacral degenerative disc disease, lumbosacral spinal stenosis. Post-Operative Diagnosis: Lumbosacral radiculopathy, lumbosacral degenerative disc disease, lumbosacral spinal stenosis. Surgery/Procedure Performed:: Diagnostic/therapeutic caudal epidural steroid injection under fluoroscopic guidance Description of Surgical Findings:: PROCEDURE: Diagnostic/therapeutic caudal epidural steroid injection PREOPERATIVE DIAGNOSIS: Lumbosacral radiculopathy, lumbosacral degenerative disc disease, lumbosacral spinal stenosis POSTOPERATIVE DIAGNOSIS: Lumbosacral radiculopathy, lumbosacral degenerative disc disease, lumbosacral spinal stenosis ANESTHESIA: MAC COMPLICATIONS: None BLOOD LOSS: Minimal PROCEDURE IN DETAIL: History and physical today was reviewed. Risks and benefits of the procedure were explained. The patient understood, agreed to our procedure, and informed consent was obtained. IV inserted per routine protocol. The patient was taken to the operating room, placed in a prone position with a pillow positioned underneath the abdomen. The lower back and tailbone area was prepped and draped in a sterile fashion using iodine ?3 under fluoroscopy guidance on the lateral view the caudal space was identified the skin and subcutaneous tissue and size approximately 3 cc of 1% lidocaine using a 25-gauge regular needle under direct visualization fluoroscopy using the lateral approach using a 22-gauge 3-1/2 inch spinal needle the needle was advanced via the skin through the sacral hiatus, tip of the needle passed through the sacrococcygeal ligament advanced approximately S4 area after neg ative aspiration for blood or CSF a total of 3 cc of contrast were injected to confirm correct placement of the needle as well as cephalad spread the spread was followed to approximately L5 area after confirmation AP as well as lateral view repeated negative aspiration a total of 15 cc of preservative-free 0.125% Marcaine with 80 mg of the portal was injected easily. The needles were then removed intact. The patient experienced no signs or symptoms intrathecal, intravascular injection. The patient experienced no paraesthesia. The procedure was completed without any apparent difficult, any complication. The patient appeared to tolerate well. ASSESSMENT AND PLAN: This is a 62-year-old female with lumbosacral radiculopathy, lumbosacral degenerative disc disease, lumbosacral spinal stenosis status post diagnostic/therapeutic caudal epidural steroid injection. The patient will continue his current medications. The patient will follow in approximately 2 weeks for possible repeat of the procedure if indicated.
[2018-07-26 12:00] VITALS: BP 133/76
== END 2018-07-26 12:00 | disposition home or self-care (01) ==
LOC: SDC 09:27 → AC 09:52
PROVIDERS: Family Provider Family Medicine; PCP Family Medicine; Referring Provider Anesthesiology Pain Medicine; Visit Provider Anesthesiology Pain Medicine
PROC: 3E0S3BZ Introduction of Anesthetic Agent into Epidural Space, Percutaneous Approach (ICD-10-PCS; CPT 62282; principal; 2018-07-26 10:45)
DX: M51.17 Intervertebral disc disorders with radiculopathy, lumbosacral region (principal); M48.07 Spinal stenosis, lumbosacral region; E11.9 Type 2 diabetes mellitus without complications; I10 Essential (primary) hypertension; E78.5 Hyperlipidemia, unspecified; E55.9 Vitamin D deficiency, unspecified; M46.96 Unspecified inflammatory spondylopathy, lumbar region; M79.10 Myalgia, unspecified site; Z79.891 Long term (current) use of opiate analgesic
CPT/HCPCS: 62322; 64483; 77003; 82962; J7120; J3490

== ENCOUNTER 2018-09-13 08:56 | Day surgery (SDC) | payer OTHER, SELFPAY ==
[2018-09-13 09:24] VITALS: BP 130/88; PULSE 83; RESP 16; TEMP 36.9; O2SAT 100; BMI 30.4
[2018-09-13] MEDS: MethylPREDNISolone Acetate 80 MG/ML Vial (09:32)
[2018-09-13 09:41] LABS: Bedside Glucose 210 mg/dL (70-110)
--- NOTE | 2018-09-13 10:10 | RAD_ITS ---
PROCEDURE: Right L3-S1 lumbar facet joint block. DATE OF EXAMINATION: September 13, 2018. INDICATION: Female, 62 years old. Chronic low back pain. FLUOROSCOPY TIME (if supplied): (0:12) minutes/seconds 4 images were obtained. Intraoperative imaging was provided for right L3-S1 facet joint block. The spinal needles are seen at the appropriate levels. RAD/L/S Spine Min 4 Views IMPRESSION: Intraoperative imaging provided for right L3-S1 facet joint block. Electronically Signed: Ibrahima Gutierrez MD at 9:56 EST Tel [phone], Service support ,
[2018-09-13] MEDS: Bupivacaine 0.25% 30 ML Vial (10:11)
[2018-09-13 10:19] VITALS: BP 115/69; BP 130/88; PULSE 75; RESP 16; TEMP 36.6; O2SAT 96
--- NOTE | 2018-09-13 10:24 | PCM.OPRPT ---
Problem List (1) Spondylosis of lumbosacral region without myelopathy or radiculopathy Status: Chronic (2) Degeneration of intervertebral disc of lumbosacral region Status: Chronic Report of Operation Date of Procedure: 09/13/18 Pre-Operative Diagnosis: Lumbosacral spondylosis, lumbosacral degenerative disc disease, lumbar facet arthropathy Post-Operative Diagnosis: Lumbosacral spondylosis, lumbosacral degenerative disc disease, lumbar facet arthropathy Surgery/Procedure Performed:: Right-sided lumbar facet steroid injection L3, L4, L5, S1 Description of Surgical Findings:: PROCEDURE: Right-sided lumbar facet steroid injection L3, L4, L5, S1 PREOPERATIVE DIAGNOSIS: Lumbosacral spondylosis, lumbosacral degenerative disc disease, and lumbar facet arthropathy POSTOPERATIVE DIAGNOSIS: Lumbosacral spondylosis, lumbosacral degenerative disc disease, and lumbar facet arthropathy ANESTHESIA: MAC COMPLICATIONS: None BLOOD LOSS: Minimal PROCEDURE IN DETAIL: History and physical today was reviewed. Risks and benefits of the procedure were explained. The patient understood, agreed to our procedure, and informed consent was obtained. IV inserted per routine protocol. The patient was taken to the operating room, placed in a prone position with a pillow positioned underneath the abdomen. The right side of his lower back was prepped and draped in a sterile fashion using iodine x3. Under fluoroscopy guidance, on AP view, L3 through S1 vertebral bodies were visualized. Skin and subcutaneous tissues were anesthetized with approximately 5 mL of 1% lidocaine using a 25-gauge regular needle. Under direct visualization with fluoroscopy at approximately 25-degree angle, starting on the right L3, ending on the right S1, passing through the L4-L5 using a 22-gauge 3 1/2-inch spinal needle, the needle was advanced via the skin. The tip of the needle was maneuvered and directed towards the superior and medial gutter of the transverse process at the vicinity of the medial branch. Once the tip of the needle was in contact with the bone, the needle pulled approximately 2 mm off the bone. After negative aspiration of blood with CSF and confirmation of AP as well as oblique view, a total of 8 mL of preservative-free 0.25% Marcaine with 80 mg of Depo-Medrol was injection in divided doses between those 4 levels. The needles were then removed intact. The patient experienced no signs or symptoms intrathecal, intravascular injection. The patient experienced no paraesthesia. The procedure was completed without any apparent difficult, any complication. The patient appeared to tolerate well. ASSESSMENT AND PLAN: This is a 62-year-old Female with Lumbosacral spondylosis, lumbosacral degenerative disc disease, and lumbar facet arthropathy, status post right-sided lumbar facet steroid injection L3 through S1. The patient will continue her current medications. The patient will follow in approximately 2 weeks for possible repeat of the procedure if indicated.
[2018-09-13 10:25] VITALS: BP 125/77; BP 130/88; PULSE 72; RESP 16; O2SAT 99
--- NOTE | 2018-09-13 10:27 | OP.PCM_ITS ---
Problem List (1) Spondylosis of lumbosacral region without myelopathy or radiculopathy Status: Chronic (2) Degeneration of intervertebral disc of lumbosacral region Status: Chronic Report of Operation Date of Procedure: 09/13/18 Pre-Operative Diagnosis: Lumbosacral spondylosis, lumbosacral degenerative disc disease, lumbar facet arthropathy Post-Operative Diagnosis: Lumbosacral spondylosis, lumbosacral degenerative disc disease, lumbar facet arthropathy Surgery/Procedure Performed:: Right-sided lumbar facet steroid injection L3, L4, L5, S1 Description of Surgical Findings:: PROCEDURE: Right-sided lumbar facet steroid injection L3, L4, L5, S1 PREOPERATIVE DIAGNOSIS: Lumbosacral spondylosis, lumbosacral degenerative disc disease, and lumbar facet arthropathy POSTOPERATIVE DIAGNOSIS: Lumbosacral spondylosis, lumbosacral degenerative disc disease, and lumbar facet arthropathy ANESTHESIA: MAC COMPLICATIONS: None BLOOD LOSS: Minimal PROCEDURE IN DETAIL: History and physical today was reviewed. Risks and benefits of the procedure were explained. The patient understood, agreed to our procedure, and informed consent was obtained. IV inserted per routine protocol. The patient was taken to the operating room, placed in a prone position with a pillow positioned underneath the abdomen. The right side of his lower back was prepped and draped in a sterile fashion using iodine x3. Under fluoroscopy guidance, on AP view, L3 through S1 vertebral bodies were visualized. Skin and subcutaneous tissues were anesthetized with approximately 5 mL of 1% lidocaine using a 25-gauge regular needle. Under direct visualization with fluoroscopy at approximately 25-degree angle, starting on the right L3, ending on the right S1, passing throu gh the L4-L5 using a 22-gauge 3 1/2-inch spinal needle, the needle was advanced via the skin. The tip of the needle was maneuvered and directed towards the superior and medial gutter of the transverse process at the vicinity of the medial branch. Once the tip of the needle was in contact with the bone, the needle pulled approximately 2 mm off the bone. After negative aspiration of blood with CSF and confirmation of AP as well as oblique view, a total of 8 mL of preservative-free 0.25% Marcaine with 80 mg of Depo- Medrol was injection in divided doses between those 4 levels. The needles were then removed intact. The patient experienced no signs or symptoms intrathecal, intravascular injection. The patient experienced no paraesthesia. The procedure was completed without any apparent difficult, any complication. The patient appeared to tolerate well. ASSESSMENT AND PLAN: This is a 62-year-old Female with Lumbosacral spondylosis, lumbosacral degenerative disc disease, and lumbar facet arthropathy, status post right-sided lumbar facet steroid injection L3 through S1. The patient will continue her current medications. The patient will follow in approximately 2 weeks for possible repeat of the procedure if indicated.
[2018-09-13 10:30] VITALS: BP 126/73; BP 130/88; PULSE 75; RESP 16; O2SAT 100
[2018-09-13 10:35] VITALS: BP 130/71; BP 130/88; PULSE 75; RESP 16; TEMP 36.3; O2SAT 98
[2018-09-13 11:00] VITALS: BP 130/88
== END 2018-09-13 11:00 | disposition home or self-care (01) ==
LOC: SDC 08:57 → AC 08:58
PROVIDERS: Family Provider Family Medicine; PCP Family Medicine; Referring Provider Anesthesiology Pain Medicine; Visit Provider Anesthesiology Pain Medicine
PROC: 3E0T3BZ Introduction of Anesthetic Agent into Peripheral Nerves and Plexi, Percutaneous Approach (ICD-10-PCS; CPT 64493; principal; 2018-09-13 10:00)
DX: M47.817 Spondylosis without myelopathy or radiculopathy, lumbosacral region (principal); M51.37 Other intervertebral disc degeneration, lumbosacral region; E11.9 Type 2 diabetes mellitus without complications; I10 Essential (primary) hypertension
CPT/HCPCS: 64493; 64494; 64495; 64483; 72110; 82962; J7120

== ENCOUNTER → 2020-01-05 10:09 | Outpatient (CLI) | payer OTHER, SELFPAY ==
[2020-01-04 16:26] VITALS: BMI 30.4
== END ==
PROVIDERS: PCP Family Medicine; Visit Provider Physician Assistant
DX: L03.019 Cellulitis of unspecified finger (principal); L02.519 Cutaneous abscess of unspecified hand
CPT/HCPCS: 87070; 87077; 87186; 87205

== ENCOUNTER 2020-07-11 13:34 | Emergency (ER) | payer OTHER, SELFPAY ==
[2020-01-04 16:26] VITALS: BMI 30.4
[2020-07-11 13:35] VITALS: BP 111/89; PULSE 99; RESP 18; TEMP 36.7; O2SAT 99; BMI 32.9
[2020-07-11 14:39] VITALS: O2SAT 98
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
[2020-07-11] MEDS: Ibuprofen 600 MG Tablet PO (15:49)
[2020-07-11 16:59] VITALS: RESP 18
== END 2020-07-11 17:00 | disposition home or self-care (01) ==
PROVIDERS: Emergency Provider Emergency Medicine; PCP Family Medicine
DX: S20.211A Contusion of right front wall of thorax, initial encounter (principal); V43.52XA Car driver injured in collision with other type car in traffic accident, initial encounter; Y93.9 Activity, unspecified; Y92.410 Unspecified street and highway as the place of occurrence of the external cause; Y99.9 Unspecified external cause status; E11.9 Type 2 diabetes mellitus without complications; Z88.8 Allergy status to other drugs, medicaments and biological substances
CPT/HCPCS: 71101; 99285

== ENCOUNTER 2021-07-02 10:52 | Outpatient (RCR) | payer MEDICARE, SELFPAY ==
[2021-07-02 11:18] VITALS: BP 181/90; PULSE 94; RESP 16; TEMP 36.3; BMI 32.9
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
== END 2021-07-07 23:59 ==
LOC: WC 10:52
PROVIDERS: PCP Family Medicine; Visit Provider Surgery
DX: T25.229A Burn of second degree of unspecified foot, initial encounter (principal); T31.11 Burns involving 10-19% of body surface with 10-19% third degree burns; M54.17 Radiculopathy, lumbosacral region; E83.52 Hypercalcemia; E11.42 Type 2 diabetes mellitus with diabetic polyneuropathy; E78.5 Hyperlipidemia, unspecified; I10 Essential (primary) hypertension; Z85.828 Personal history of other malignant neoplasm of skin; Z79.4 Long term (current) use of insulin; Z79.82 Long term (current) use of aspirin; Z79.899 Other long term (current) drug therapy
CPT/HCPCS: 11042; 11045; 16020; 99213; G0463

== ENCOUNTER 2021-08-06 10:00 | Outpatient (RCR) | payer MEDICARE, SELFPAY ==
[2021-07-08 00:34] VITALS: BP 181/90; PULSE 94; RESP 16; TEMP 36.3; BMI 32.9
[2021-07-09 10:56] VITALS: BP 170/91; PULSE 72; RESP 20; TEMP 36.3; BMI 32.9
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
[2021-07-16 10:39] VITALS: BP 148/76; PULSE 100; RESP 20; TEMP 36.8; BMI 32.9
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
[2021-07-23 11:00] VITALS: BP 151/61; PULSE 102; RESP 16; TEMP 36.9; BMI 32.9
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
[2021-07-30 10:30] VITALS: BP 170/84; PULSE 92; RESP 16; TEMP 36.6; BMI 32.9
[2021-07-30 12:33] LABS: Absolute Lymphocyte Count 2.03 X10^3/uL (0.83-4.51); Absolute Neutrophil Count 10.8 X10^3/uL (2.0-7.7); Basophil# 0.05 X10^3/uL; Basophil% 0.4 % (0-1); Eosinophil# 0.23 X10^3/uL; Eosinophils% 1.6 % (0-5); Hematocrit 27.2 % (37-47); Hemoglobin 8.4 g/dL (12.0-15.0); Lymphocyte # 2.03 X10^3/ul (0.83-4.51); Lymphocyte % 14.3 % (19-41); Mean Corp Hgb Conc 30.9 g/dL (32-36); Mean Corpuscular Hgb 24.9 pg (27.0-32.0); Mean Corpuscular Volume 80.7 fL (81-99); Mean Platelet Vol. 9.1 fl (6.2-12.0); Monocyte% 6.4 % (0-10); NRBC Flagged by Analyzer 0 % (0-5); Neutrophil # 10.84 X10^3/uL (2.7-7.7); Neutrophil % 76.5 % (47-70); Platelet Count 507 K/mm3 (150-450); RBC Distribution Width CV 14.6 % (11.6-14.6); RBC Distribution Width SD 43.4 fl (35.1-43.9); Red Blood Count 3.37 M/mm3 (4.2-5.4); White Blood Count 14.2 K/mm3 (4.4-11.0)
[2021-07-30 12:50] LABS: Erythrocyte Sedimentation Rate 61 mm/hr (0-30)
[2021-07-30 12:59] LABS: Hemoglobin A1c 9.8 % (3.8-5.6)
[2021-07-30 13:07] LABS: ALB/GLOB Ratio 0.4 RATIO (0.9-2.4); AST(SGOT) 11 U/L (15-37); Alanine Aminotransfer ALT/SGPT 15 U/L (13-56); Albumin, Serum 2.3 g/dL (3.2-5.0); Alkaline Phosphatase 175 U/L (45-117); Anion Gap 8 (5-15); BUN 30 mg/dL (7-18); BUN/Creat Ratio 23.3 RATIO (10-20); Chloride 105 mmol/L (98-107); Creatinine, Serum 1.29 mg/dL (0.55-1.02); EST Glomerular Filtration Rate 44 mL/min (>60); Est Glom Filt Rate - Afr Amer 53 mL/min (>60); Estimated Creatinine Clearance 34.39 ml/min; Globulin 5.3 g/dL (2.2-4.2); Glucose 184 mg/dL (74-106); Potassium 4.4 mmol/L (3.5-5.1); Prealbumin 12.1 mg/dL (20.0-40.0); Protein, Total 7.6 g/dL (6.4-8.2); Sodium Level 136 mmol/L (136-145)
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
--- NOTE | 2021-08-06 12:36 | HP.PCM_ITS ---
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 laboratory studies, on July 30, 2021. The results have been reviewed, and discussed with the patient. Her hemoglobin is noted to be low, and issues regard to this finding are to be deferred to the patient's primary care physician. The patient has been made aware, however, that nutritional factors appear to be diminished, with a serum prealbumin of 12.1 and a serum albumin of 2.3. The patient has been encouraged to augment her nutritional intake. The patient's hemoglobin A1c is noted to be 9.8, and she has been advised to redouble her efforts at glycemic control, and to collaborate with her primary care physician in this regard. A noninvasive lower extremity arterial study and venous duplex examination are to be performed later today. The patient is to return in 1 week for reassessment. Total time: 29 minutes
--- NOTE | 2021-08-06 13:09 | VDLE_ITS ---
Reason For Study: Pain RIGHT LEFT GSV is normal. GSV is normal. CFV is compressible, spontaneous, phasic, CFV is compressible, spontaneous, phasic, competent and demonstrates normal competent, and demonstrates normal augmentation. augmentation. FV is compressible, spontaneous, phasic, FV is compressible, spontaneous, phasic, competent and demonstrates normal competent and demonstrates normal augmentation. augmentation. POP V is compressible, spontaneous, phasic, POP V is compressible, spontaneous, phasic, competent and demonstrates normal competent and demonstrates normal augmentation. augmentation. T/P Trunk is compressible. T/P Trunk is compressible. PTV is compressible. PTV is compressible. RT PerV is compressible. LT PerV is compressible. Procedure This is a venous duplex using B-mode, color flow and spectral Doppler. Exam performed in department. A preliminary report was called and/or faxed to . VL/Venous Duplex US - Jay Extrem Interpretation Summary Deep veins of the lower extremities are bilaterally patent and compressible seg mentally. There is no evidence of deep vein thrombosis on either side. Valvular competence appears in tact within the proximal deep venous systems bilaterally. The great saphenous veins appear bila terally patent and compressible segmentally. Ordering Physician: Yuri Finnegan Referring Physician: Hever Otoole Performed By: Sima Rivera RVT
--- NOTE | 2021-08-06 13:09 | ART_ITS ---
Reason For Study: Non healing wound Procedure A bilateral lower extremity continuous wave Doppler with analog waveform analysis,segmental pressures,and ankle brachial indexes without exercise. Left Segmental Pressures Left brachial= 143mmHg. Left posterior tibial artery = 166mmHg. Left dorsalis pedis artery = 177mmHg. The left dorsalis pedis waveforms are triphasic. The left posterior tibial artery waveforms are triphasic. Right Segmental Pressures Right brachial= 147mmHg. Right posterior tibial artery = 187mmHg. Right dorsalis pedis artery = 157mmHg. Right digit = 107 mmHg. The right dorsalis pedis waveforms are triphasic. The right posterior tibial artery waveforms are triphasic. Indices The right ankle brachial index by the dorsalis pedis is 1.07. The right ankle brachial index by the posterior tibial artery is 1.27. The right digital-brachial index is 0.73. The left ankle brachial index by the dorsalis pedis is 1.20. The left ankle brachial index by the posterior tibial artery is 1.13. VL/Lower Ext Art Exam w/o Exercis Interpretation Summary Triphasic Doppler waveforms are noted at ankle level bilaterally. Pulse-volume recordings appear satisfactory bilaterally. Resting ankle-brachial indices are normal bilaterally . The right digital- brachial index is normal. The left digital-brachial index was not determined du e to the presence of an open wound. There is no evidence of significant arterial occlusive disease in the lower ext remities bilaterally. Ordering Physician: Yuri Finnegan Referring Physician: Hever Otoole Performed By: Sima Rivera RVT
== END 2021-08-06 23:59 ==
LOC: WC 10:00
PROVIDERS: PCP Family Medicine; Visit Provider Surgery
DX: E11.621 Type 2 diabetes mellitus with foot ulcer (principal); L97.502 Non-pressure chronic ulcer of other part of unspecified foot with fat layer exposed; L97.402 Non-pressure chronic ulcer of unspecified heel and midfoot with fat layer exposed; M79.662 Pain in left lower leg; T25.32 Burn of third degree of foot; S20.211A Contusion of right front wall of thorax, initial encounter; I96 Gangrene, not elsewhere classified; T31.11 Burns involving 10-19% of body surface with 10-19% third degree burns; E11.42 Type 2 diabetes mellitus with diabetic polyneuropathy; I10 Essential (primary) hypertension; E78.5 Hyperlipidemia, unspecified; M54.17 Radiculopathy, lumbosacral region; M54.16 Radiculopathy, lumbar region; E46 Unspecified protein-calorie malnutrition; Z85.828 Personal history of other malignant neoplasm of skin; Z79.4 Long term (current) use of insulin; Z79.82 Long term (current) use of aspirin
CPT/HCPCS: 11042; 11045; 16020; 36415; 80053; 83036; 84134; 85025; 85652; 87070; 87075; 87077; 87186; 87205; 93923; 93970

== ENCOUNTER → 2021-08-06 13:04 | Outpatient (CLI) | payer MEDICARE, SELFPAY | PROVIDERS: PCP Family Medicine; Referring Provider Surgery; Visit Provider Surgery | DX: M79.662 Pain in left lower leg (principal) ==

== ENCOUNTER → 2021-08-15 14:21 | Outpatient (CLI) | payer MEDICARE, SELFPAY ==
--- NOTE | 2021-08-15 | LES_PTH ---
PATIENT: HAIDER PARISI LOC: [facility] U#:[id number] AGE/SX: 69/F ROOM: RE08/15/[address]: Dr. Jessie Reza DPM : 1955 BED: DIS: SPEC #: [id number] RECD: 08/16/21 08:00 STATUS: EDIL BRICE #: [id number] MARGO: 08/15/21 00:[address]: Jessie Reza DEPT: SURGICAL PATHOLOGY RECD BY: Constantine Nicole ENTERED: 08/16/21 08:27 SP TYPE: Lesion OTHR DR: Dr. Hever Ootole, DO Tissues: Skin of foot, NOS Procedures: Decalcification bone/plaque Surgery Specimen Level IV HEADER OPERATION: Not noted PRE-OP DIAGNOSIS: Osteomyelitis TISSUE SUBMITTED: Left foot MICROSCOPIC DIAGNOSIS Skin, soft tissue and bone of left foot, biopsy: Consistent with acute osteomyelitis. AM:mayela 08/19/2021 MICROSCOPIC DESCRIPTION Slides are reviewed. GROSS DESCRIPTION Received in fixative is one container labeled with the patient's name and designated left foot. The specimen consists of an irregular fragment of light damon, indurated skin fragment measuring 1.2 x 0.6 x 0.2 cm. The specimen is inked, bisected along its long axis and totally submitted in one cassette after decalcification. / AM:mayela 08/16/21 TC:2 CPT: 51685, 75989
[2021-08-15 19:47] LABS: M R Staph aureus DNA By PCR Negative (Negative); Probe Check PASS; Specimen Processing Control PASS; Staph aureus DNA By PCR NEGATIVE (Negative)
== END ==
PROVIDERS: PCP Family Medicine; Referring Provider Podiatrist; Visit Provider Podiatrist
DX: M86.9 Osteomyelitis, unspecified (principal); L97.524 Non-pressure chronic ulcer of other part of left foot with necrosis of bone
CPT/HCPCS: 87070; 87075; 87077; 87176; 87186; 87205; 87640; 88305; 88311

== ENCOUNTER → 2021-08-27 13:11 | Outpatient (CLI) | payer MEDICARE, SELFPAY ==
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
== END ==
PROVIDERS: PCP Family Medicine; Referring Provider Podiatrist; Visit Provider Podiatrist
DX: M86.9 Osteomyelitis, unspecified (principal)
CPT/HCPCS: 73718

== ENCOUNTER 2021-09-04 11:00 | Outpatient (RCR) | payer MEDICARE, SELFPAY ==
[2021-08-07 00:35] VITALS: BP 170/84; PULSE 92; RESP 16; TEMP 36.6; BMI 32.9
[2021-08-13 10:20] VITALS: BP 165/72; PULSE 89; TEMP 36.1; BMI 32.9
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
[2021-08-21 13:51] VITALS: BP 151/72; PULSE 99; TEMP 36.4; BMI 32.9
--- NOTE | 2021-08-21 16:10 | PCM.WC.PN ---
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 hospital has been at capacity at this time due to Covid pandemic. She is overall stable. Admission after surgery is recommended due to her low hemoglobin levels and for additional infection management. Discussed case with Dr. Amaro. The patient is to return in 1 week for reassessment Offloading: Continue bilateral surgical shoes and to avoid laying directly on this site Note: [employer] speech recognition apartment maintenance worker software was used to create portions of this document. Sound-alike and misspelled words, as well as other apartment maintenance worker errors may be contained in the documentation. The medical decision making level is moderate. There is noted moderate risk of morbidity after considering this treatment plan and diagnostic data. Considerations were given to prescription management, decisions regarding surgical options, or social determinants of health. The problems addressed require a moderate decision making level which includes one or more chronic illnesses (w/ exacerbation, progression, or side effects), two or more stable chronic illnesses, one undiagnosed new problem w/ uncertain prognosis, one acute illness with systemic symptoms, or one acute complicated injury.
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
[2021-08-28 11:25] VITALS: BP 167/82; PULSE 95; TEMP 36.4; BMI 32.9
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
[2021-09-04 11:34] VITALS: BP 133/62; PULSE 103; RESP 16; TEMP 36.8; BMI 32.9
== END 2021-09-06 23:59 ==
LOC: WC 11:00
PROVIDERS: PCP Family Medicine; Visit Provider Surgery
DX: E11.621 Type 2 diabetes mellitus with foot ulcer (principal); L97.512 Non-pressure chronic ulcer of other part of right foot with fat layer exposed; L97.524 Non-pressure chronic ulcer of other part of left foot with necrosis of bone; T25.32 Burn of third degree of foot; L97.502 Non-pressure chronic ulcer of other part of unspecified foot with fat layer exposed; T31.11 Burns involving 10-19% of body surface with 10-19% third degree burns; E46 Unspecified protein-calorie malnutrition; I10 Essential (primary) hypertension; E11.42 Type 2 diabetes mellitus with diabetic polyneuropathy; E78.5 Hyperlipidemia, unspecified; M54.17 Radiculopathy, lumbosacral region; Z85.828 Personal history of other malignant neoplasm of skin; M86.9 Osteomyelitis, unspecified; Z79.4 Long term (current) use of insulin; Z79.82 Long term (current) use of aspirin
CPT/HCPCS: 11042; 11043; 11045; 11046; 99213; G0463

== ENCOUNTER 2021-10-07 09:00 | Outpatient (RCR) | payer MEDICARE, SELFPAY ==
[2021-09-07 00:32] VITALS: BP 133/62; PULSE 103; RESP 16; TEMP 36.8; BMI 32.9
[2021-09-11 14:59] VITALS: BP 168/79; PULSE 95; TEMP 35; BMI 32.9
--- NOTE | 2021-09-11 16:23 | WC ---
Wound bled alot. I held pressure for 20 more min before enma
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
--- NOTE | 2021-09-16 13:17 | EKG12_ITS ---
Test Reason : PREOP Blood Pressure : / mmHG Vent. Rate : 083 BPM Atrial Rate : 083 BPM P-R Int : 150 ms QRS Dur : 080 ms QT Int : 362 ms P-R-T Axes : 048 063 029 degrees QTc Int : 425 ms Normal sinus rhythm Normal ECG Confirmed by EVON LINARES, SHA ([id number]), graphic editor AKI CONWAY ([id number]) on 09/17/2021 1:45:15 PM Referred By: Jessie Reza Confirmed By:SHA BARNARD MD
--- NOTE | 2021-09-16 13:45 | RAD_ITS ---
STUDY: X-RAY CHEST REASON FOR EXAM: Female, 65 years old patient with decreased oxygen levels. TECHNIQUE: PA and lateral views of the chest. COMPARISON: 04/08/2018. FINDINGS: The lungs are expanded. There is interstitial thickening present in both lungs. There is no demonstrated pleural abnormality. Normal size heart. Normal mediastinum and juan. There is prominence of the pulmonary hilar arteries without peripheral pulmonary vascular congestion. There is atherosclerotic tortuosity of the aortic arch and descending thoracic aorta. Normal visualized thoracic spine. Normal visualized ribs, clavicles, and shoulders. There is no demonstrated abnormality of the visualized soft tissue structures of the upper abdomen. RAD/Chest PA and Lateral IMPRESSION: No radiographic evidence of acute cardiopulmonary disease. Electronically Signed: Felecia Mackey MD at 2:10 EST , Service support ,
[2021-09-16 15:31] LABS: Absolute Lymphocyte Count 2.26 X10^3/uL (0.83-4.51); Absolute Neutrophil Count 8.8 X10^3/uL (2.0-7.7); Basophil# 0.07 X10^3/uL; Basophil% 0.6 % (0-1); Eosinophil# 0.24 X10^3/uL; Hematocrit 31.4 % (37-47); Hemoglobin 9.9 g/dL (12.0-15.0); Lymphocyte # 2.26 X10^3/ul (0.83-4.51); Lymphocyte % 18.7 % (19-41); Mean Corp Hgb Conc 31.5 g/dL (32-36); Mean Corpuscular Hgb 24.7 pg (27.0-32.0); Mean Corpuscular Volume 78.3 fL (81-99); Mean Platelet Vol. 9.8 fl (6.2-12.0); Monocyte# 0.69 X10^3/uL; Monocyte% 5.7 % (0-10); NRBC Flagged by Analyzer 0 % (0-5); Neutrophil # 8.79 X10^3/uL (2.7-7.7); Neutrophil % 72.5 % (47-70); Platelet Count 334 K/mm3 (150-450); RBC Distribution Width CV 19.8 % (11.6-14.6); RBC Distribution Width SD 55.8 fl (35.1-43.9); Red Blood Count 4.01 M/mm3 (4.2-5.4); White Blood Count 12.1 K/mm3 (4.4-11.0)
[2021-09-16 16:19] LABS: ALB/GLOB Ratio 0.6 RATIO (0.9-2.4); AST(SGOT) 18 U/L (15-37); Alanine Aminotransfer ALT/SGPT 31 U/L (13-56); Alkaline Phosphatase 169 U/L (45-117); Anion Gap 9 (5-15); BUN 38 mg/dL (7-18); BUN/Creat Ratio 30.4 RATIO (10-20); Calcium,Total 9.2 mg/dL (8.5-10.1); Chloride 106 mmol/L (98-107); Creatinine, Serum 1.25 mg/dL (0.55-1.02); EST Glomerular Filtration Rate 46 mL/min (>60); Est Glom Filt Rate - Afr Amer 55 mL/min (>60); Estimated Creatinine Clearance 35.49 ml/min; Glucose 163 mg/dL (74-106); Potassium 4.8 mmol/L (3.5-5.1); Sodium Level 138 mmol/L (136-145)
[2021-09-18 11:21] VITALS: BP 152/75; PULSE 98; RESP 18; TEMP 36.1; BMI 32.9
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
--- NOTE | 2021-09-18 20:01 | PN.PCM_ITS ---
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 documented, communicating with other healthcare providers, documenting information in the medical record, interpreting / sharing this information when indicated as documented, and care coordination.
[2021-09-23 08:55] LABS: Bedside Glucose 196 mg/dL (70-110)
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
[2021-09-23 11:21] LABS: Bedside Glucose 252 mg/dL (70-110)
[2021-09-23 11:55] VITALS: BP 138/69; BP 172/75; PULSE 83; PULSE 91; RESP 16; TEMP 35.7; TEMP 35.9
[2021-09-24 08:01] LABS: Bedside Glucose 170 mg/dL (70-110)
[2021-09-24 08:59] VITALS: BP 119/63; BP 155/73; PULSE 89; PULSE 90; RESP 16; RESP 18; TEMP 36.7
[2021-09-24 10:45] LABS: Bedside Glucose 179 mg/dL (70-110)
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
[2021-09-25 08:56] LABS: Bedside Glucose 170 mg/dL (70-110)
[2021-09-25 09:40] VITALS: BP 136/65; BP 137/76; PULSE 86; PULSE 88; RESP 16; RESP 17; TEMP 36.2
[2021-09-25 11:16] LABS: Bedside Glucose 181 mg/dL (70-110)
[2021-09-25 11:25] VITALS: BP 137/76; PULSE 86; RESP 17; TEMP 36.2; BMI 32.9
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
[2021-09-26 08:36] LABS: Bedside Glucose 181 mg/dL (70-110)
[2021-09-26 09:15] VITALS: BP 128/64; BP 150/78; PULSE 85; PULSE 88; RESP 16; RESP 17; TEMP 36.4
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
[2021-09-26 11:11] LABS: Bedside Glucose 167 mg/dL (70-110)
[2021-09-27 08:40] LABS: Bedside Glucose 181 mg/dL (70-110)
[2021-09-27 10:20] VITALS: BP 138/72; PULSE 88; RESP 17; TEMP 36.7
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
[2021-09-30 09:00] LABS: Bedside Glucose 186 mg/dL (70-110)
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
[2021-10-01 09:06] LABS: Bedside Glucose 215 mg/dL (70-110)
[2021-10-01 10:09] VITALS: BP 136/71; BP 142/73; PULSE 84; PULSE 91; RESP 16; RESP 17; TEMP 36.3
[2021-10-01 11:10] LABS: Bedside Glucose 227 mg/dL (70-110)
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
[2021-10-02 09:01] LABS: Bedside Glucose 186 mg/dL (70-110)
[2021-10-02 09:21] VITALS: BP 133/59; BP 152/86; PULSE 86; PULSE 90; RESP 16; RESP 18; TEMP 36.1
[2021-10-02 11:11] LABS: Bedside Glucose 190 mg/dL (70-110)
[2021-10-02 11:19] VITALS: BP 133/59; PULSE 90; RESP 18; TEMP 36.1; BMI 32.9
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
--- NOTE | 2021-10-02 13:03 | PCM.WC.PN ---
History of Present Illness Date of Service: 10/02/21 Chief Complaint: Second and third degree barr on the plantar aspect of both feet also now with osteomyelitis of the left foot History of Wound: This is a 65-year-old female who is a known diabetic. She also suffers from diabetic neuropathy. She had deteriorization in particular to the left foot and MRI confirmed osteomyelitis of the fifth metatarsal. She started hyperbaric oxygen therapy and reports the sessions are going well. This has been placed on hold due to an ear issue; she is seeing Dr. Nick this week. She is with her family member today. She denies fever, chill, nausea, vomiting, purulence or odor. She is also seen for her right foot ulcer today and she has been changing the dressing as advised. She has trouble staying off both feet at the same time. Objective Data Objective Data Vital Signs: Vital Signs Temp Pulse Resp BP 97 F L 90 18 133/59 H 10/02/21 11:19 10/02/21 11:19 10/02/21 11:19 10/02/21 11:19 Oxygen Delivery Method Room Air Weight: 81.647 kg Body Mass Index (BMI) 32.9 Lab / Micro Data Result Diagrams: 09/16/21 14:04 09/16/21 14:04 Labs: Laboratory Results - last 24 hr 10/02/21 08:54: POC Glucose 186 H 10/02/21 11:03: POC Glucose 190 H Rhythm Strip Rhythm Strip: Sinus Rhythm Physical Exam Const alert, oriented x3, no apparent distress and well nourished General Appearance: cooperative and well developed HEENT normocephalic Extremity no calf tenderness Extremity Narrative: no cyanosis, no calf tenderness, diminished pulses muscle wasting noted. General Extremity: Negative for clubbing or cyanosis Skin Skin Narrative: no purulence, no erythema, no streaking, no odor. Adjacent skin is atrophic and thin. Plantar lateral right foot ulcer is 100% granular without deep probing; stable. The plantar lateral right foot cluster is now 1 united wound with decreased fibrous tissue granulation tissue. There is also no longer exposed bone or deep tissue exposure . Full epithelialization to left plantar hallux Wound Narrative: Neuro Neuro Narrative: lack of normal epicritic sensation via light touch consistent with neuropathy Debridement Note Debridement Note Wound debrided: Right plantar foot, left lateral forefoot Wound Grade/Stage: 1, 3 Type of Debridement: Excisional debridement Anesthesia Used: 4% Lidocaine Solution Depth: in the subcutaneous layer Percentage of wound debrided: 100 Instrument Used: #15 blade Tissue Removed: fibrous, devitalized subcutaneous, biofilm, slough Severity: Fat Layer Exposed Amount of bleeding with debridement: Mild Bleeding Controlled with: Pressure Patient tolerated procedure: Patient tolerated procedure well Post-Debridement Measurements and Additional Note: Post-Debridement Measurements/Treatment - Nurse 1 - General Ulcer Assessment Start: 09/11/21 14:38 Freq: Status: Active Protocol: SOBIA Activity Type Activity Date Activity User E-Sign Co-Sign Detail Recorded Client Recorded Date Recorded By Document 09/11/21 14:59 AK [id number] 09/11/21 15:03 AK Document 09/18/21 11:21 MT [id number] 09/18/21 11:31 MT Document 09/25/21 11:25 ML [id number] 09/25/21 11:37 ML Document 10/02/21 11:19 [facility] [id number] 10/02/21 11:27 BMF 09/11/21 09/18/21 09/25/21 14:59 11:21 11:25 - Today's Visit Information Type of service Follow-up Visit Follow-up Visit Follow-up Visit (Physician/COMPETITIVE ATHLETE (Physician/COMPETITIVE ATHLETE (Physician/COMPETITIVE ATHLETE ) ) ) Arrival Mode Ambulatory Walker Walker Transfer Assistance None Accompanied by Pat Patient Identification Verified (Name & Yes Yes Yes ) Patient Requires Transmission-Based No No Precautions Safety Precautions NA NA Finger Stick Blood Sugar(mg/dl) (if 282 181 indicated): Blood Sugar Stated by Done During Patient this Visit Height and Weight Body Mass Index (BMI) 32.9 32.9 32.9 BMI Classification Obese Obese Obese Vital Signs Temperature (97.8 F-99.1 F) 95 F L 97 F L 97.1 F L Temperature Source Temporal Temporal Temporal Pulse Rate (60-100) 95 98 86 Pulse Location Monitor Monitor Monitor Respiratory Rate (12-18) 18 17 Respiratory rate source Observation Observation Oxygen Delivery Method Room Air Blood Pressure (90/60-120/80) 168/79 H 152/75 H 137/76 H Blood Pressure Mean (mm Hg) 108 100 96 Source Monitor Monitor Monitor Position Sitting Sitting Blood Pressure Location Right Arm Left Arm History Since Last Visit- (Skip if this is Patient's initial visit) Have you changed medications since your No No last visit? Any new allergies or adverse reactions No No Had a fall/change in ADL's that may No No increase risk of falls Signs or symptoms of abuse and/or No No neglect since last visit Have you been in the hospital since your No No last visit? Has dressing in place as prescribed Yes Yes Yes Has compression in place as prescribed Yes Yes N/A Has offloadiing in place as prescribed Yes Yes Yes Experienced any changes in pain level or No No management Left Footwear Surgical Shoe Diabetic Shoe Surgical Shoe with pressure with pressure relief insole relief insole Right Footwear Surgical Shoe Diabetic Shoe Surgical Shoe with pressure with pressure relief insole relief insole Pain Scale: 0-10 Numeric Is Patient Pain Free? Yes Yes 10/02/21 11:19 WC - Today's Visit Information Type of service Follow-up Visit (Physician/COMPETITIVE ATHLETE ) Arrival Mode Ambulatory, Walker Transfer Assistance None Accompanied by sister Patient Identification Verified (Name & Yes ) Patient Requires Transmission-Based No Precautions Safety Precautions Finger Stick Blood Sugar(mg/dl) (if 186 indicated): Blood Sugar Stated by Patient Height and Weight Body Mass Index (BMI) 32.9 BMI Classification Obese Vital Signs Temperature (97.8 F-99.1 F) 97 F L Temperature Source Temporal Pulse Rate (60-100) 90 Pulse Location Monitor Respiratory Rate (12-18) 18 Respiratory rate source Observation Oxygen Delivery Method Room Air Blood Pressure (90/60-120/80) 133/59 H Blood Pressure Mean (mm Hg) 83 Source Monitor Position Sitting Blood Pressure Location Left Arm History Since Last Visit- (Skip if this is Patient's initial visit) Have you changed medications since your No last visit? Any new allergies or adverse reactions No Had a fall/change in ADL's that may No increase risk of falls Signs or symptoms of abuse and/or No neglect since last visit Have you been in the hospital since your No last visit? Has dressing in place as prescribed Yes Has compression in place as prescribed Yes Has offloadiing in place as prescribed N/A Experienced any changes in pain level or Yes management Left Footwear Surgical Shoe with pressure relief insole Right Footwear Surgical Shoe with pressure relief insole Pain Scale: 0-10 Numeric Is Patient Pain Free? Yes - Nurse 1 - General Ulcer Measurement Start: 09/11/21 14:38 Freq: Status: Active Protocol: Activity Type Activity Date Activity User E-Sign Co-Sign Detail Recorded Client Recorded Date Recorded By Document 09/11/21 14:59 AK [id number] 09/11/21 15:03 AK Document 09/18/21 11:21 MT [id number] 09/18/21 11:31 MT Document 09/25/21 11:25 ML [id number] 09/25/21 11:37 ML Document 10/02/21 11:19 BMF [id number] 10/02/21 11:27 BMF 09/11/21 09/18/21 09/25/21 14:59 11:21 11:25 Wound Center Nurse 1 #6- L PLANTAR FOOT CLUSTER -Combined with other wound No -Current Size (cm) - Length 8.2 7 6 -Current Size (cm) - Width 2.5 2.8 3.5 -Current Size (cm) - Depth 0.3 0.3 0.3 -Total Square Cm 20.50 19.6 21.0 -Photo Taken No -Epithelialization None Present -Tunneling No -Undermining/Tunneling No -Circular Undermining No -Change in Wound Grade/Stage No -Exudate Amt Large Medium Medium -Exudate Type Serosanguineous Serosanguineous Serosanguineous -Wound Margin Distinct, Distinct, Outline Outline Attached Attached -Granulation Amt Medium (34-66%) Large (67-100%) Medium (34-66%) -Granulation Quality Longfellow,Red Red Red -Slough/Fibrin Yes Yes -Necrosis Amt Small (1-33%) Small (1-33%) Medium (34-66%) -Necrotic Tissue Type Adherent Slough Adherent Slough Adherent Slough -Structure Exposed N/A -Texture (Toyin-wound Skin Appearance) Assessed,Callus Assessed -Moisture (Toyin-wound Skin Appearance) Assessed, Assessed Maceration -Color (Toyin-wound Skin Appearance) No Abnormality, Assessed Assessed -Temperature (Toyin-wound Skin No Abnormality No Abnormality Appearance) (Pt Warm) (Pt Warm) -Tenderness on Palpation (Toyin-wound Yes Skin Appearance) -Ulcer Cleansing Rinsed/ Soap and Water Irrigated with Saline -Foul Odor after Cleansing No -Anesthetic Used 4% Lidocaine 4% Lidocaine Solution,5% Solution Lidocaine Gel #5- R PLANTAR FOOT -Combined with other wound No -Current Size (cm) - Length 2.4 2.5 2 -Current Size (cm) - Width 2.6 2.3 2 -Current Size (cm) - Depth 0.2 0.2 0.1 -Total Square Cm 6.24 5.75 4 -Photo Taken No -Epithelialization -Tunneling No -Undermining/Tunneling No Yes -Undermining/Tunneling Starts (O'clock 11 ) -Undermining/Tunneling Ends (O'clock) 2 -Circular Undermining No -Exudate Amt Medium Medium -Exudate Type Serosanguineous Serosanguineous -Wound Margin Thickened & Distinct, Rolled Under Outline Attached -Granulation Amt Small (1-33%) Large (67-100%) Medium (34-66%) -Granulation Quality Red Pale,Longfellow,Red -Slough/Fibrin Yes Yes -Necrosis Amt Small (1-33%) Small (1-33%) Medium (34-66%) -Necrotic Tissue Type Adherent Slough Adherent Slough Adherent Slough -Structure Exposed N/A -Texture (Toyin-wound Skin Appearance) Assessed,Callus Assessed Assessed -Moisture (Toyin-wound Skin Appearance) Assessed, Assessed Assessed Maceration -Color (Toyin-wound Skin Appearance) No Abnormality, Assessed Assessed Assessed -Temperature (Toyin-wound Skin No Abnormality No Abnormality No Abnormality Appearance) (Pt Warm) (Pt Warm) (Pt Warm) -Tenderness on Palpation (Toyin-wound No No Skin Appearance) -Ulcer Cleansing Rinsed/ Rinsed/ Soap and Water Irrigated with Irrigated with Saline Saline -Foul Odor after Cleansing No No No -Anesthetic Used 4% Lidocaine 4% Lidocaine 4% Lidocaine Solution,5% Solution Solution Lidocaine Gel #4- R 3RD TOE PLANTAR -Combined with other wound No -Current Size (cm) - Length 0.4 -Current Size (cm) - Width 1.6 -Current Size (cm) - Depth 0.1 -Total Square Cm 0.64 -Photo Taken No -Tunneling No -Undermining/Tunneling No -Circular Undermining No -Change in Wound Grade/Stage No -Exudate Amt Large -Exudate Type Serosanguineous -Wound Margin Distinct, Outline Attached -Granulation Amt Medium (34-66%) -Granulation Quality Longfellow,Red -Necrosis Amt Small (1-33%) -Necrotic Tissue Type Adherent Slough -Structure Exposed N/A -Texture (Toyin-wound Skin Appearance) Assessed,Callus -Moisture (Toyin-wound Skin Appearance) Assessed, Maceration -Color (Toyin-wound Skin Appearance) No Abnormality, Assessed -Temperature (Toyin-wound Skin No Abnormality Appearance) (Pt Warm) -Tenderness on Palpation (Toyin-wound No Skin Appearance) -Ulcer Cleansing Rinsed/ Irrigated with Saline -Anesthetic Used 4% Lidocaine Solution,5% Lidocaine Gel #1- L GR TOE PLANTAR -Combined with other wound -Current Size (cm) - Length 0.1 0.1 -Current Size (cm) - Width 0.1 0.1 -Current Size (cm) - Depth 0.1 0.1 -Total Square Cm 0.01 0.01 -Photo Taken -Epithelialization -Tunneling -Undermining/Tunneling -Circular Undermining -Exudate Amt Small None Present -Exudate Type Serosanguineous -Wound Margin Flat & Intact -Granulation Amt Large (67-100%) None Present (0 %) -Granulation Quality Pale,Longfellow -Slough/Fibrin No -Necrosis Amt Small (1-33%) None Present (0 %) -Necrotic Tissue Type Adherent Slough -Texture (Toyin-wound Skin Appearance) Assessed Assessed -Moisture (Toyin-wound Skin Appearance) Assessed Assessed -Color (Toyin-wound Skin Appearance) Assessed Assessed -Temperature (Toyin-wound Skin No Abnormality No Abnormality Appearance) (Pt Warm) (Pt Warm) -Tenderness on Palpation (Toyin-wound No No Skin Appearance) -Ulcer Cleansing Soap and Water Soap and Water -Foul Odor after Cleansing -Anesthetic Used 4% Lidocaine 4% Lidocaine Solution Solution Lower Limb Edema Present Right Calf (cm) Right Ankle (cm) Left Calf (cm) Left Ankle (cm) 10/02/21 11:19 Wound Center Nurse 1 #6- L PLANTAR FOOT CLUSTER -Combined with other wound No -Current Size (cm) - Length 7 -Current Size (cm) - Width 2.5 -Current Size (cm) - Depth 0.2 -Total Square Cm 17.5 -Photo Taken No -Epithelialization Small 1-33% -Tunneling No -Undermining/Tunneling No -Circular Undermining No -Change in Wound Grade/Stage -Exudate Amt Large -Exudate Type Serosanguineous -Wound Margin Distinct, Outline Attached -Granulation Amt Large (67-100%) -Granulation Quality Hyper- granulation, Longfellow -Slough/Fibrin Yes -Necrosis Amt Small (1-33%) -Necrotic Tissue Type Adherent Slough -Structure Exposed -Texture (Toyin-wound Skin Appearance) Assessed, Scarring -Moisture (Toyin-wound Skin Appearance) Assessed,Dry/ Scaly -Color (Toyin-wound Skin Appearance) Assessed -Temperature (Toyin-wound Skin No Abnormality Appearance) (Pt Warm) -Tenderness on Palpation (Toyin-wound No Skin Appearance) -Ulcer Cleansing Soap and Water -Foul Odor after Cleansing No -Anesthetic Used 4% Lidocaine Solution #5- R PLANTAR FOOT -Combined with other wound No -Current Size (cm) - Length 2.4 -Current Size (cm) - Width 2.3 -Current Size (cm) - Depth 0.2 -Total Square Cm 5.52 -Photo Taken No -Epithelialization Small 1-33% -Tunneling No -Undermining/Tunneling No -Undermining/Tunneling Starts (O'clock ) -Undermining/Tunneling Ends (O'clock) -Circular Undermining No -Exudate Amt Medium -Exudate Type Serosanguineous -Wound Margin Distinct, Outline Attached -Granulation Amt Large (67-100%) -Granulation Quality Red -Slough/Fibrin Yes -Necrosis Amt Small (1-33%) -Necrotic Tissue Type Adherent Slough -Structure Exposed -Texture (Toyin-wound Skin Appearance) Assessed, Scarring -Moisture (Toyin-wound Skin Appearance) Assessed -Color (Toyin-wound Skin Appearance) Assessed -Temperature (Toyin-wound Skin No Abnormality Appearance) (Pt Warm) -Tenderness on Palpation (Toyin-wound No Skin Appearance) -Ulcer Cleansing Soap and Water -Foul Odor after Cleansing No -Anesthetic Used 4% Lidocaine Solution #4- R 3RD TOE PLANTAR -Combined with other wound -Current Size (cm) - Length -Current Size (cm) - Width -Current Size (cm) - Depth -Total Square Cm -Photo Taken -Tunneling -Undermining/Tunneling -Circular Undermining -Change in Wound Grade/Stage -Exudate Amt -Exudate Type -Wound Margin -Granulation Amt -Granulation Quality -Necrosis Amt -Necrotic Tissue Type -Structure Exposed -Texture (Toyin-wound Skin Appearance) -Moisture (Toyin-wound Skin Appearance) -Color (Toyin-wound Skin Appearance) -Temperature (Toyin-wound Skin Appearance) -Tenderness on Palpation (Toyin-wound Skin Appearance) -Ulcer Cleansing -Anesthetic Used #1- L GR TOE PLANTAR -Combined with other wound No -Current Size (cm) - Length 0.1 -Current Size (cm) - Width 0.1 -Current Size (cm) - Depth 0.1 -Total Square Cm 0.01 -Photo Taken No -Epithelialization Large 67-100% -Tunneling No -Undermining/Tunneling No -Circular Undermining No -Exudate Amt None Present -Exudate Type -Wound Margin Distinct, Outline Attached -Granulation Amt None Present (0 %) -Granulation Quality -Slough/Fibrin Yes -Necrosis Amt Large (67-100%) -Necrotic Tissue Type Adherent Slough -Texture (Toyin-wound Skin Appearance) Assessed, Scarring -Moisture (Toyin-wound Skin Appearance) Assessed,Dry/ Scaly -Color (Toyin-wound Skin Appearance) Assessed -Temperature (Toyin-wound Skin No Abnormality Appearance) (Pt Warm) -Tenderness on Palpation (Toyin-wound No Skin Appearance) -Ulcer Cleansing Soap and Water -Foul Odor after Cleansing No -Anesthetic Used 5% Lidocaine Gel Lower Limb Edema Present Yes Right Calf (cm) 30.5 Right Ankle (cm) 20.5 Left Calf (cm) 31.1 Left Ankle (cm) 20.4 WC - Nurse 2 - General Ulcer CM Notes Start: 09/11/21 14:38 Freq: Status: Active Protocol: Activity Type Activity Date Activity User E-Sign Co-Sign Detail Recorded Client Recorded Date Recorded By Document 09/11/21 15:18 [id number] 09/11/21 15:28 JF Edit Result 09/11/21 15:18 JF (1) [id number] 09/12/21 06:17 PL Document 09/18/21 11:36 JF [id number] 09/18/21 11:44 JF Document 09/18/21 12:13 MW [id number] 09/18/21 12:14 MW Document 09/25/21 11:49 [id number] 09/25/21 11:53 JF Edit Result 09/25/21 11:49 JF (2) [id number] 09/26/21 06:59 PL Document 10/02/21 11:46 JF [id number] 10/02/21 11:54 JF (1) #4- R 3RD TOE PLANTAR - Debridement - Subq, 1st 20sq cm Yes => #2- L 3RD TOE PLANTAR - Debridement - Subq, 1st 20sq cm Yes => (2) #6- L PLANTAR FOOT CLUSTER - Apply Skin Sub - 1st 25 sq cm - Feet => 1 - Apply Skin Sub - each addt'l 25 sq cm 1 => - Feet 09/11/21 09/18/21 09/18/21 15:18 11:36 12:13 Wound Center Nurse 2 #6- L PLANTAR FOOT CLUSTER -Time 15:19 11:36 -Correct Patient Yes Yes -Correct Side, Site, Position Yes Yes -Correct Procedure Yes Yes -Procedure Performed Yes Yes -Type of Procedure Debridement Debridement -Clinical Debridement Bone Subcutaneous -Tissue Removed Slough Subcutaneous -Post Debridement (cm) - Length 8.2 7.0 -Post Debridement (cm) - Width 2.6 2.9 -Post Debridement (cm) - Depth 0.3 0.3 -Total Square (Post) (cm) 21.32 20.30 -Area of Debridement (cm) - Length 8.2 7 -Area of Debridement (cm) - Width 2.6 2.9 -Total Square (Area) (cm) 21.32 20.3 -Tunneling No No -Undermining/Tunneling No No -Circular Undermining No No -Wound/Ulcer Outcome Not Healed Not Healed -Ulcer Cleansing Rinsed/ Rinsed/ Irrigated with Irrigated with Saline Saline -Foul Odor after Cleansing No No -Bioengineered Tissue No No -Type of Bioengineered Tissue -Expiration Date -Product Lot Number -Percent Used -Lot number of Saline Used -Bleeding Controlled with Pressure Pressure -Offloading Yes No -Type of Offloading Surgical Shoe -Treatment Response Procedure Procedure Tolerated Well Tolerated Well -Debridement - Subq, 1st 20sq cm No No -Debridement, SubQ, ea addt'l 20sq cm 1 or part thereof -Debridement - Bone, 1st 20sq cm Yes -Apply Skin Sub - 1st 25 sq cm - Feet -Epifix Mesh (per sq cm) #5- R PLANTAR FOOT -Time 15:19 11:37 -Correct Patient Yes Yes -Correct Side, Site, Position Yes Yes -Correct Procedure Yes Yes -Procedure Performed Yes Yes -Type of Procedure Debridement Debridement -Clinical Debridement Subcutaneous Subcutaneous -Tissue Removed Subcutaneous Subcutaneous -Post Debridement (cm) - Length 2.5 2.5 -Post Debridement (cm) - Width 2.6 2.4 -Post Debridement (cm) - Depth 0.2 0.2 -Total Square (Post) (cm) 6.50 6.00 -Area of Debridement (cm) - Length 2.5 2.5 -Area of Debridement (cm) - Width 2.6 2.4 -Total Square (Area) (cm) 6.50 6.00 -Tunneling No No -Undermining/Tunneling No No -Circular Undermining No No -Wound/Ulcer Outcome Not Healed Not Healed -Ulcer Cleansing Rinsed/ Rinsed/ Irrigated with Irrigated with Saline Saline -Foul Odor after Cleansing No No -Bioengineered Tissue No No -Bleeding Controlled with Pressure Pressure -Offloading Yes No -Type of Offloading Surgical Shoe -Treatment Response Procedure Procedure Tolerated Well Tolerated Well -Debridement - Subq, 1st 20sq cm Yes No #4- R 3RD TOE PLANTAR -Time 15:20 -Correct Patient No -Correct Side, Site, Position No -Correct Procedure No -Tunneling No -Undermining/Tunneling No -Circular Undermining No -Wound/Ulcer Outcome Healed- Epithelialized -Ulcer Cleansing Rinsed/ Irrigated with Saline -Foul Odor after Cleansing No -Bioengineered Tissue No -Bleeding Controlled with Pressure -Offloading Yes -Type of Offloading Surgical Shoe -Treatment Response Procedure Tolerated Well #2- L 3RD TOE PLANTAR -Time 15:21 -Correct Patient No -Correct Side, Site, Position No -Correct Procedure No -Procedure Performed No -Tunneling No -Undermining/Tunneling No -Circular Undermining No -Wound/Ulcer Outcome Healed- Epithelialized -Ulcer Cleansing Rinsed/ Irrigated with Saline -Foul Odor after Cleansing No -Bioengineered Tissue No -Bleeding Controlled with Pressure -Offloading Yes -Type of Offloading Surgical Shoe -Treatment Response Procedure Tolerated Well #1- L GR TOE PLANTAR -Time 15:21 11:38 -Correct Patient Yes Yes -Correct Side, Site, Position Yes Yes -Correct Procedure Yes Yes -Procedure Performed Yes Yes -Type of Procedure Debridement Debridement -Clinical Debridement Subcutaneous Subcutaneous -Tissue Removed Subcutaneous Subcutaneous -Post Debridement (cm) - Length 0.5 0.2 -Post Debridement (cm) - Width 1.6 0.2 -Post Debridement (cm) - Depth 0.1 0.1 -Total Square (Post) (cm) 0.80 0.04 -Area of Debridement (cm) - Length 0.5 0.2 -Area of Debridement (cm) - Width 1.6 0.2 -Total Square (Area) (cm) 0.80 0.04 -Tunneling No No -Undermining/Tunneling No No -Circular Undermining No No -Wound/Ulcer Outcome Not Healed Not Healed -Ulcer Cleansing Rinsed/ Rinsed/ Irrigated with Irrigated with Saline Saline -Foul Odor after Cleansing No No -Bioengineered Tissue No No -Bleeding Controlled with Pressure Pressure -Offloading Yes No -Type of Offloading Surgical Shoe -Treatment Response Procedure Procedure Tolerated Well Tolerated Well -Debridement - Subq, 1st 20sq cm No Yes Pain Scale: 0-10 Numeric Is Patient Pain Free? Yes Yes Yes 09/25/21 10/02/21 11:49 11:46 Wound Center Nurse 2 #6- L PLANTAR FOOT CLUSTER -Time 11:49 11:46 -Correct Patient Yes Yes -Correct Side, Site, Position Yes Yes -Correct Procedure Yes Yes -Procedure Performed Yes Yes -Type of Procedure Debridement Debridement -Clinical Debridement Subcutaneous Subcutaneous -Tissue Removed Subcutaneous Subcutaneous -Post Debridement (cm) - Length 6.1 6.8 -Post Debridement (cm) - Width 3.6 2.0 -Post Debridement (cm) - Depth 0.3 0.1 -Total Square (Post) (cm) 21.96 13.60 -Area of Debridement (cm) - Length 6.1 6.8 -Area of Debridement (cm) - Width 3.6 2.0 -Total Square (Area) (cm) 21.96 13.60 -Tunneling No No -Undermining/Tunneling No No -Circular Undermining No No -Wound/Ulcer Outcome Not Healed Not Healed -Ulcer Cleansing Rinsed/ Rinsed/ Irrigated with Irrigated with Saline Saline -Foul Odor after Cleansing No No -Bioengineered Tissue Yes Yes -Type of Bioengineered Tissue Epifix Mesh Epifix Mesh -Expiration Date 06/07/26 -Product Lot Number [id number] -Percent Used 100 -Lot number of Saline Used [id number] -Bleeding Controlled with Pressure Pressure -Offloading Yes Yes -Type of Offloading Surgical Shoe Surgical Shoe -Treatment Response Procedure Procedure Tolerated Well Tolerated Well -Debridement - Subq, 1st 20sq cm No No -Debridement, SubQ, ea addt'l 20sq cm 1 or part thereof -Debridement - Bone, 1st 20sq cm -Apply Skin Sub - 1st 25 sq cm - Feet 1 1 -Epifix Mesh (per sq cm) 11 11 #5- R PLANTAR FOOT -Time 11:51 11:47 -Correct Patient Yes Yes -Correct Side, Site, Position Yes Yes -Correct Procedure Yes Yes -Procedure Performed Yes Yes -Type of Procedure Debridement Debridement -Clinical Debridement Subcutaneous Subcutaneous -Tissue Removed Subcutaneous Subcutaneous -Post Debridement (cm) - Length 2.1 2.4 -Post Debridement (cm) - Width 2.1 2.5 -Post Debridement (cm) - Depth 0.1 0.2 -Total Square (Post) (cm) 4.41 6.00 -Area of Debridement (cm) - Length 2.1 2.4 -Area of Debridement (cm) - Width 2.1 2.5 -Total Square (Area) (cm) 4.41 6.00 -Tunneling No No -Undermining/Tunneling No No -Circular Undermining No No -Wound/Ulcer Outcome Not Healed Not Healed -Ulcer Cleansing Rinsed/ Rinsed/ Irrigated with Irrigated with Saline Saline -Foul Odor after Cleansing No No -Bioengineered Tissue No No -Bleeding Controlled with Pressure Pressure -Offloading Yes Yes -Type of Offloading Surgical Shoe Surgical Shoe -Treatment Response Procedure Procedure Tolerated Well Tolerated Well -Debridement - Subq, 1st 20sq cm Yes Yes #4- R 3RD TOE PLANTAR -Time -Correct Patient -Correct Side, Site, Position -Correct Procedure -Tunneling -Undermining/Tunneling -Circular Undermining -Wound/Ulcer Outcome -Ulcer Cleansing -Foul Odor after Cleansing -Bioengineered Tissue -Bleeding Controlled with -Offloading -Type of Offloading -Treatment Response #2- L 3RD TOE PLANTAR -Time -Correct Patient -Correct Side, Site, Position -Correct Procedure -Procedure Performed -Tunneling -Undermining/Tunneling -Circular Undermining -Wound/Ulcer Outcome -Ulcer Cleansing -Foul Odor after Cleansing -Bioengineered Tissue -Bleeding Controlled with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
[2021-10-03 08:50] LABS: Bedside Glucose 184 mg/dL (70-110)
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
[2021-10-03 09:30] VITALS: BP 142/69; BP 150/90; PULSE 86; PULSE 88; RESP 17; RESP 18; TEMP 36.1
[2021-10-03 11:11] LABS: Bedside Glucose 196 mg/dL (70-110)
[2021-10-04 09:01] LABS: Bedside Glucose 212 mg/dL (70-110)
[2021-10-04 09:36] VITALS: BP 131/70; BP 139/67; PULSE 83; PULSE 91; RESP 15; RESP 17; TEMP 36.1
[2021-10-04 11:20] LABS: Bedside Glucose 195 mg/dL (70-110)
--- NOTE | 2021-10-04 13:59 | PCM.HBO.PN ---
History of Present Illness Date of Service: 10/04/21 Chief Complaint: Second and third degree barr on the plantar aspect of both feet also now with osteomyelitis of the left foot History of Wound: This is a 65-year-old female who is a known diabetic. She also suffers from diabetic neuropathy. She had deteriorization in particular to the left foot and MRI confirmed osteomyelitis of the fifth metatarsal. She started hyperbaric oxygen therapy and reports the sessions are going well. This has been placed on hold due to an ear issue; she is seeing Dr. Nick this week. She is with her family member today. She denies fever, chill, nausea, vomiting, purulence or odor. She is also seen for her right foot ulcer today and she has been changing the dressing as advised. She has trouble staying off both feet at the same time. Progress of Wound: Today represents the 8th of 30 planned sessions. Hyperbaric oxygen therapy was administered as per the facility's protocol. Hyperbaric oxygen therapy was administered at 2 clementina for 90 minutes with no air breaks. Patient tolerated hyperbaric oxygen therapy well, without complaints or complications. Upon emergence from the hyperbaric chamber, the patient's vital signs remained stable. She was discharged in good condition. Pre and post treatment blood glucose readings are documented elsewhere. Objective Data Objective Data Vital Signs: Vital Signs Temp Pulse Resp BP 97.0 F L 91 17 131/70 H 10/04/21 09:36 10/04/21 09:36 10/04/21 09:36 10/04/21 09:36 Oxygen Delivery Method Room Air Weight: 81.647 kg Body Mass Index (BMI) 32.9 Lab / Micro Data Result Diagrams: 09/16/21 14:04 09/16/21 14:04 Labs: Laboratory Results - last 24 hr 10/04/21 08:56: POC Glucose 212 H 10/04/21 11:09: POC Glucose 195 H Rhythm Strip Rhythm Strip: Sinus Rhythm Exam Nursing Assessment and Debridement Post-Debridement Measurements and Additional Note: Post-Debridement Measurements/Treatment WC - Nurse 1 - General Ulcer Assessment Start: 09/11/21 14:38 Freq: Status: Active Protocol: [email or web address] Activity Type Activity Date Activity User E-Sign Co-Sign Detail Recorded Client Recorded Date Recorded By Document 10/02/21 11:19 [facility] [id number] 10/02/21 11:27 [facility] 10/02/21 11:19 - Today's Visit Information Type of service 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 ) Arrival Mode Ambulatory, Walker Transfer Assistance None Accompanied by sister Patient Identification Verified (Name & Yes ) Patient Requires Transmission-Based No Precautions Finger Stick Blood Sugar(mg/dl) (if 186 indicated): Blood Sugar Stated by Patient Height and Weight Body Mass Index (BMI) 32.9 BMI Classification Obese Vital Signs Temperature (97.8 F-99.1 F) 97 F L Temperature Source Temporal Pulse Rate (60-100) 90 Pulse Location Monitor Respiratory Rate (12-18) 18 Respiratory rate source Observation Oxygen Delivery Method Room Air Blood Pressure (90/60-120/80) 133/59 H Blood Pressure Mean (mm Hg) 83 Source Monitor Position Sitting Blood Pressure Location Left Arm History Since Last Visit- (Skip if this is Patient's initial visit) Have you changed medications since your No last visit? Any new allergies or adverse reactions No Had a fall/change in ADL's that may No increase risk of falls Signs or symptoms of abuse and/or No neglect since last visit Have you been in the hospital since your No last visit? Has dressing in place as prescribed Yes Has compression in place as prescribed Yes Has offloadiing in place as prescribed N/A Experienced any changes in pain level or Yes management Left Footwear Surgical Shoe with pressure relief insole Right Footwear Surgical Shoe with pressure relief insole Pain Scale: 0-10 Numeric Is Patient Pain Free? Yes - Nurse 1 - General Ulcer Measurement Start: 09/11/21 14:38 Freq: Status: Active Protocol: Activity Type Activity Date Activity User E-Sign Co-Sign Detail Recorded Client Recorded Date Recorded By Document 10/02/21 11:19 [facility] [id number] 10/02/21 11:27 [facility] 10/02/21 11:19 Wound Center Nurse 1 #6- L PLANTAR FOOT CLUSTER -Combined with other wound No -Current Size (cm) - Length 7 -Current Size (cm) - Width 2.5 -Current Size (cm) - Depth 0.2 -Total Square Cm 17.5 -Photo Taken No -Epithelialization Small 1-33% -Tunneling No -Undermining/Tunneling No -Circular Undermining No -Exudate Amt Large -Exudate Type Serosanguineous -Wound Margin Distinct, Outline Attached -Granulation Amt Large (67-100%) -Granulation Quality Hyper- granulation, [place] -Slough/Fibrin Yes -Necrosis Amt Small (1-33%) -Necrotic Tissue Type Adherent Slough -Texture ([place]-wound Skin Appearance) Assessed, Scarring -Moisture ([place]-wound Skin Appearance) Assessed,Dry/ Scaly -Color ([place]-wound Skin Appearance) Assessed -Temperature ([place]-wound Skin No Abnormality Appearance) (Pt Warm) -Tenderness on Palpation ([place]-wound No Skin Appearance) -Ulcer Cleansing Soap and Water -Foul Odor after Cleansing No -Anesthetic Used 4% Lidocaine Solution #5- R PLANTAR FOOT -Combined with other wound No -Current Size (cm) - Length 2.4 -Current Size (cm) - Width 2.3 -Current Size (cm) - Depth 0.2 -Total Square Cm 5.52 -Photo Taken No -Epithelialization Small 1-33% -Tunneling No -Undermining/Tunneling No -Circular Undermining No -Exudate Amt Medium -Exudate Type Serosanguineous -Wound Margin Distinct, Outline Attached -Granulation Amt Large (67-100%) -Granulation Quality Red -Slough/Fibrin Yes -Necrosis Amt Small (1-33%) -Necrotic Tissue Type Adherent Slough -Texture ([place]-wound Skin Appearance) Assessed, Scarring -Moisture ([place]-wound Skin Appearance) Assessed -Color ([place]-wound Skin Appearance) Assessed -Temperature ([place]-wound Skin No Abnormality Appearance) (Pt Warm) -Tenderness on Palpation ([place]-wound No Skin Appearance) -Ulcer Cleansing Soap and Water -Foul Odor after Cleansing No -Anesthetic Used 4% Lidocaine Solution #1- L GR TOE PLANTAR -Combined with other wound No -Current Size (cm) - Length 0.1 -Current Size (cm) - Width 0.1 -Current Size (cm) - Depth 0.1 -Total Square Cm 0.01 -Photo Taken No -Epithelialization Large 67-100% -Tunneling No -Undermining/Tunneling No -Circular Undermining No -Exudate Amt None Present -Wound Margin Distinct, Outline Attached -Granulation Amt None Present (0 %) -Slough/Fibrin Yes -Necrosis Amt Large (67-100%) -Necrotic Tissue Type Adherent Slough -Texture ([place]-wound Skin Appearance) Assessed, Scarring -Moisture ([place]-wound Skin Appearance) Assessed,Dry/ Scaly -Color ([place]-wound Skin Appearance) Assessed -Temperature ([place]-wound Skin No Abnormality Appearance) (Pt Warm) -Tenderness on Palpation ([place]-wound No Skin Appearance) -Ulcer Cleansing Soap and Water -Foul Odor after Cleansing No -Anesthetic Used 5% Lidocaine Gel Lower Limb Edema Present Yes Right Calf (cm) 30.5 Right Ankle (cm) 20.5 Left Calf (cm) 31.1 Left Ankle (cm) 20.4 WC - Nurse 2 - General Ulcer CM Notes Start: 09/11/21 14:38 Freq: Status: Active Protocol: Activity Type Activity Date Activity User E-Sign Co-Sign Detail Recorded Client Recorded Date Recorded By Document 10/02/21 11:46 [id number] 10/02/21 11:54 [facility] 10/02/21 11:46 Wound Center Nurse 2 #6- L PLANTAR FOOT CLUSTER -Time 11:46 -Correct Patient Yes -Correct Side, Site, Position Yes -Correct Procedure Yes -Procedure Performed Yes -Type of Procedure Debridement -Clinical Debridement Subcutaneous -Tissue Removed Subcutaneous -Post Debridement (cm) - Length 6.8 -Post Debridement (cm) - Width 2.0 -Post Debridement (cm) - Depth 0.1 -Total Square (Post) (cm) 13.60 -Area of Debridement (cm) - Length 6.8 -Area of Debridement (cm) - Width 2.0 -Total Square (Area) (cm) 13.60 -Tunneling No -Undermining/Tunneling No -Circular Undermining No -Wound/Ulcer Outcome Not Healed -Ulcer Cleansing Rinsed/ Irrigated with Saline -Foul Odor after Cleansing No -Bioengineered Tissue Yes -Type of Bioengineered Tissue Epifix Mesh -Bleeding Controlled with Pressure -Offloading Yes -Type of Offloading Surgical Shoe -Treatment Response Procedure Tolerated Well -Debridement - Subq, 1st 20sq cm No -Apply Skin Sub - 1st 25 sq cm - Feet 1 -Epifix Mesh (per sq cm) 11 #5- R PLANTAR FOOT -Time 11:47 -Correct Patient Yes -Correct Side, Site, Position Yes -Correct Procedure Yes -Procedure Performed Yes -Type of Procedure Debridement -Clinical Debridement Subcutaneous -Tissue Removed Subcutaneous -Post Debridement (cm) - Length 2.4 -Post Debridement (cm) - Width 2.5 -Post Debridement (cm) - Depth 0.2 -Total Square (Post) (cm) 6.00 -Area of Debridement (cm) - Length 2.4 -Area of Debridement (cm) - Width 2.5 -Total Square (Area) (cm) 6.00 -Tunneling No -Undermining/Tunneling No -Circular Undermining No -Wound/Ulcer Outcome Not Healed -Ulcer Cleansing Rinsed/ Irrigated with Saline -Foul Odor after Cleansing No -Bioengineered Tissue No -Bleeding Controlled with Pressure -Offloading Yes -Type of Offloading Surgical Shoe -Treatment Response Procedure Tolerated Well -Debridement - Subq, 1st 20sq cm Yes #1- L GR TOE PLANTAR -Correct Patient No -Correct Side, Site, Position No -Correct Procedure No -Procedure Performed No -Post Debridement (cm) - Length 0 -Post Debridement (cm) - Width 0 -Post Debridement (cm) - Depth 0 -Total Square (Post) (cm) 0 -Area of Debridement (cm) - Length 0 -Area of Debridement (cm) - Width 0 -Total Square (Area) (cm) 0 -Wound/Ulcer Outcome Healed- Epithelialized Pain Scale: 0-10 Numeric Is Patient Pain Free? Yes - Nurse 3 - General Ulcer D/C NN Start: 09/11/21 14:38 Freq: Status: Active Protocol: Activity Type Activity Date Activity User E-Sign Co-Sign Detail Recorded Client Recorded Date Recorded By Document 10/02/21 11:58 [id number] 10/02/21 12:00 NICOLE 10/02/21 11:58 Wound Care Nurse 3 #6- L PLANTAR FOOT CLUSTER -Primary Dressing Covered/Secured with Dry Gauze,Dry Gauze & Roll Gauze,Secured with Tape #5- R PLANTAR FOOT -Primary Dressing Applied Aquacel AG 2x2 -Primary Dressing Covered/Secured with Dry Gauze,Dry Gauze & Roll Gauze,Secured with Tape -Aquacel AG 2x2 1 Right -Other larissa Left -Other larisas Treatment Response Procedure Tolerated Well Pain Scale: 0-10 Numeric Is Patient Pain Free? Yes - Visit Discharge Discharge Condition Stable Ambulatory Status Wheelchair Transportation Private Auto Medication Reconcilliation completed & No provided to patient/care provider Clinical Summary of Care Provided Yes Assessment/Plan Assessment/Plan (1) Foot osteomyelitis, left: CODE(S): M86.9 - Osteomyelitis, unspecified QUALIFIERS: Osteomyelitis type: unspecified type Qualified Code(s): M86.9 - Osteomyelitis, unspecified (2) Chronic ulcer of great toe of left foot with fat layer exposed: CODE(S): L97.522 - Non-pressure chronic ulcer of other part of left foot with fat layer exposed (3) Diabetic foot ulcer associated with type 2 diabetes mellitus, with fat layer exposed: CODE(S): E11.621 - Type 2 diabetes mellitus with foot ulcer; L97.502 - Non-pressure chronic ulcer of other part of unspecified foot with fat layer exposed QUALIFIERS: Diabetic foot ulcer location: midfoot Laterality: unspecified laterality Qualified Code(s): E11.621 - Type 2 diabetes mellitus with foot ulcer; L97.402 - Non-pressure chronic ulcer of unspecified heel and midfoot with fat layer exposed (4) Type 2 diabetes mellitus with peripheral neuropathy: CODE(S): E11.42 - Type 2 diabetes mellitus with diabetic polyneuropathy (5) Type 2 diabetes mellitus: CODE(S): E11.9 - Type 2 diabetes mellitus without complications QUALIFIERS: Diabetes mellitus complication detail: with peripheral angiopathy with gangrene Diabetes mellitus complication status: with circulatory complication Diabetes mellitus alf insulin use: without 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
[2021-10-07 08:45] LABS: Bedside Glucose 149 mg/dL (70-110)
[2021-10-07 09:16] VITALS: BP 132/69; BP 142/73; PULSE 81; PULSE 88; RESP 17; TEMP 35.6
[2021-10-07 11:00] LABS: Bedside Glucose 223 mg/dL (70-110)
--- NOTE | 2021-10-07 15:37 | PCM.HBO.PN ---
History of Present Illness Date of Service: 10/07/21 Chief Complaint: Second and third degree barr on the plantar aspect of both feet also now with osteomyelitis of the left foot History of Wound: This is a 65-year-old female who is a known diabetic. She also suffers from diabetic neuropathy. She had deteriorization in particular to the left foot and MRI confirmed osteomyelitis of the fifth metatarsal. She started hyperbaric oxygen therapy and reports the sessions are going well. This has been placed on hold due to an ear issue; she is seeing Dr. Nick this week. She is with her family member today. She denies fever, chill, nausea, vomiting, purulence or odor. She is also seen for her right foot ulcer today and she has been changing the dressing as advised. She has trouble staying off both feet at the same time. Progress of Wound: Today represents the 9th of 30 planned sessions. Hyperbaric oxygen therapy was administered as per the facility's protocol. Hyperbaric oxygen therapy was administered at 2 c[place]ina for 90 minutes with no air breaks. Patient tolerated hyperbaric oxygen therapy well, without complaints or complications. Upon emergence from the hyperbaric chamber, the patient's vital signs remained stable. She was discharged in good condition. Pre and post treatment blood glucose readings are documented elsewhere. Objective Data Objective Data Vital Signs: Vital Signs Temp Pulse Resp BP 96.0 F L 88 17 132/69 H 10/07/21 09:16 10/07/21 09:16 10/07/21 09:16 10/07/21 09:16 Oxygen Delivery Method Room Air Weight: 180 lb Body Mass Index (BMI) 32.9 Lab / Micro Data Result Diagrams: 09/16/21 14:04 09/16/21 14:04 Labs: Laboratory Results - last 24 hr 10/07/21 08:43: POC Glucose 149 H 10/07/21 10:57: POC Glucose 223 H Rhythm Strip Rhythm Strip: Sinus Rhythm Exam Physical Exam Const alert, oriented x3 and no apparent distress General Appearance: cooperative and comfortable HEENT normocephalic Tympanic Membrane: TM normal on the left and other Other Details: Right TM dull with hard cerumen present Chest inspection of chest normal Resp normal respiratory effort and clear to auscultation bilaterally Cardio regular rate and regular rhythm Assessment/Plan Assessment/Plan (1) Foot osteomyelitis, left: CODE(S): M86.9 - Osteomyelitis, unspecified QUALIFIERS: Osteomyelitis type: unspecified type Qualified Code(s): M86.9 - Osteomyelitis, unspecified (2) Chronic ulcer of great toe of left foot with fat layer exposed: CODE(S): L97.522 - Non-pressure chronic ulcer of other part of left foot with fat layer exposed (3) Diabetic foot ulcer associated with type 2 diabetes mellitus, with fat layer exposed: CODE(S): E11.621 - Type 2 diabetes mellitus with foot ulcer; L97.502 - Non-pressure chronic ulcer of other part of unspecified foot with fat layer exposed QUALIFIERS: Diabetic foot ulcer location: midfoot Laterality: unspecified laterality Qualified Code(s): E11.621 - Type 2 diabetes mellitus with foot ulcer; L97.402 - Non-pressure chronic ulcer of unspecified heel and midfoot with fat layer exposed (4) Type 2 diabetes mellitus with peripheral neuropathy: CODE(S): E11.42 - Type 2 diabetes mellitus with diabetic polyneuropathy (5) Type 2 diabetes mellitus: CODE(S): E11.9 - Type 2 diabetes mellitus without complications QUALIFIERS: Diabetes mellitus shelter insulin use: without petroleum terminal plant operator use Diabetes mellitus complication status: with circulatory complication Diabetes mellitus complication detail: with peripheral angiopathy with gangrene Qualified Code(s): E11.52 - Type 2 diabetes mellitus with diabetic peripheral angiopathy with gangrene PLAN: The patient appears to be tolerating hyperbaric oxygen therapy well, which will be continued as per his medical treatment plan.
== END 2021-10-07 23:59 ==
LOC: WC 09:00
PROVIDERS: PCP Family Medicine; Referring Provider Podiatrist; Visit Provider Podiatrist
DX: T25.32 Burn of third degree of foot (principal); E11.52 Type 2 diabetes mellitus with diabetic peripheral angiopathy with gangrene; E11.621 Type 2 diabetes mellitus with foot ulcer; L97.524 Non-pressure chronic ulcer of other part of left foot with necrosis of bone; L97.514 Non-pressure chronic ulcer of other part of right foot with necrosis of bone; L97.502 Non-pressure chronic ulcer of other part of unspecified foot with fat layer exposed; L97.402 Non-pressure chronic ulcer of unspecified heel and midfoot with fat layer exposed; L97.512 Non-pressure chronic ulcer of other part of right foot with fat layer exposed; E46 Unspecified protein-calorie malnutrition; M86.172 Other acute osteomyelitis, left ankle and foot; E11.59 Type 2 diabetes mellitus with other circulatory complications; E11.42 Type 2 diabetes mellitus with diabetic polyneuropathy; Z79.84 Long term (current) use of oral hypoglycemic drugs; L90.5 Scar conditions and fibrosis of skin; I10 Essential (primary) hypertension; M54.16 Radiculopathy, lumbar region; E55.9 Vitamin D deficiency, unspecified; M54.17 Radiculopathy, lumbosacral region; Z79.82 Long term (current) use of aspirin; E78.5 Hyperlipidemia, unspecified; T25.229A Burn of second degree of unspecified foot, initial encounter; Z85.828 Personal history of other malignant neoplasm of skin
CPT/HCPCS: 11042; 11044; 11045; 15275; 15276; 36415; 71046; 80053; 82962; 85025; 93005; 99183; 99213; Q4186; G0277; G0463

== ENCOUNTER 2021-11-04 09:00 | Outpatient (RCR) | payer MEDICARE, SELFPAY ==
[2021-10-08 08:55] LABS: Bedside Glucose 186 mg/dL (70-110)
[2021-10-08 09:26] VITALS: BP 131/66; BP 149/75; PULSE 81; PULSE 86; RESP 18; TEMP 35.7
[2021-10-08 11:10] LABS: Bedside Glucose 180 mg/dL (70-110)
[2021-10-09 08:51] LABS: Bedside Glucose 218 mg/dL (70-110)
[2021-10-09 09:17] VITALS: BP 127/83; BP 148/77; PULSE 81; PULSE 88; RESP 16; RESP 18; TEMP 35.9
[2021-10-09 11:05] LABS: Bedside Glucose 192 mg/dL (70-110)
[2021-10-09 11:14] VITALS: BP 148/77; PULSE 81; RESP 16; TEMP 36.1
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
[2021-10-14 08:45] LABS: Bedside Glucose 172 mg/dL (70-110)
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
[2021-10-14 09:17] VITALS: BP 154/79; BP 162/79; PULSE 81; RESP 17; TEMP 35.3
[2021-10-14 11:06] LABS: Bedside Glucose 194 mg/dL (70-110)
[2021-10-15 08:51] LABS: Bedside Glucose 212 mg/dL (70-110)
[2021-10-15 09:56] VITALS: BP 159/73; PULSE 83; RESP 18; TEMP 35.6
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
[2021-10-18 08:51] LABS: Bedside Glucose 241 mg/dL (70-110)
[2021-10-18 11:00] LABS: Bedside Glucose 236 mg/dL (70-110)
[2021-10-18 11:06] VITALS: BP 157/71; BP 165/86; PULSE 84; RESP 16; RESP 17; TEMP 35.8
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
[2021-10-18 13:40] VITALS: BP 159/71; PULSE 82; RESP 18; TEMP 37.1
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
[2021-10-21 09:15] LABS: Bedside Glucose 207 mg/dL (70-110)
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
[2021-10-21 11:35] LABS: Bedside Glucose 225 mg/dL (70-110)
[2021-10-21 12:03] VITALS: BP 151/74; BP 154/82; PULSE 83; PULSE 84; RESP 13; RESP 17; TEMP 35.9
[2021-10-22 09:06] LABS: Bedside Glucose 220 mg/dL (70-110)
[2021-10-22 09:17] VITALS: BP 151/73; BP 159/76; PULSE 84; PULSE 86; RESP 17; TEMP 35.9
[2021-10-22 11:26] LABS: Bedside Glucose 195 mg/dL (70-110)
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
[2021-10-23 08:56] LABS: Bedside Glucose 215 mg/dL (70-110)
[2021-10-23 09:26] VITALS: BP 159/79; BP 163/64; PULSE 83; PULSE 87; RESP 17; TEMP 35.8; TEMP 36
[2021-10-23 11:26] LABS: Bedside Glucose 223 mg/dL (70-110)
[2021-10-23 11:30] VITALS: BP 159/79; PULSE 83; RESP 17; TEMP 36
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
[2021-10-24 09:01] LABS: Bedside Glucose 235 mg/dL (70-110)
[2021-10-24 09:45] VITALS: BP 143/74; BP 153/77; PULSE 80; PULSE 83; RESP 16; TEMP 36.3
[2021-10-24 11:35] LABS: Bedside Glucose 197 mg/dL (70-110)
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
[2021-10-25 09:11] LABS: Bedside Glucose 196 mg/dL (70-110)
[2021-10-25 11:36] LABS: Bedside Glucose 224 mg/dL (70-110)
[2021-10-25 12:31] VITALS: BP 150/89; BP 151/81; PULSE 84; PULSE 86; RESP 16; TEMP 35
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
[2021-10-28 09:00] LABS: Bedside Glucose 219 mg/dL (70-110)
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
[2021-10-28 11:16] LABS: Bedside Glucose 184 mg/dL (70-110)
[2021-10-28 11:43] VITALS: BP 146/82; BP 157/73; PULSE 79; RESP 16; RESP 17; TEMP 35.4
[2021-10-29 09:01] LABS: Bedside Glucose 235 mg/dL (70-110)
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
[2021-10-29 09:34] VITALS: BP 140/71; BP 156/82; PULSE 81; PULSE 84; RESP 17; TEMP 36.3
[2021-10-29 11:26] LABS: Bedside Glucose 226 mg/dL (70-110)
[2021-10-30 08:55] LABS: Bedside Glucose 214 mg/dL (70-110)
[2021-10-30 09:32] VITALS: BP 148/86; BP 156/82; PULSE 84; PULSE 85; RESP 16; TEMP 35.7
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
[2021-10-30 11:15] LABS: Bedside Glucose 217 mg/dL (70-110)
[2021-10-30 11:24] VITALS: BP 156/82; PULSE 84; RESP 16; TEMP 35.7
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
[2021-10-31 09:06] LABS: Bedside Glucose 218 mg/dL (70-110)
[2021-10-31 09:24] VITALS: BP 154/81; BP 157/83; PULSE 82; PULSE 87; RESP 16; RESP 17; TEMP 36
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
[2021-10-31 11:26] LABS: Bedside Glucose 182 mg/dL (70-110)
[2021-11-04 09:06] LABS: Bedside Glucose 201 mg/dL (70-110)
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
[2021-11-04 09:46] VITALS: BP 143/72; BP 164/78; PULSE 85; PULSE 90; RESP 16; RESP 17; TEMP 35.9
[2021-11-04 11:31] LABS: Bedside Glucose 211 mg/dL (70-110)
== END 2021-11-04 23:59 | disposition home or self-care (01) ==
LOC: WC 09:00
PROVIDERS: PCP Family Medicine; Visit Provider Podiatrist
DX: E11.621 Type 2 diabetes mellitus with foot ulcer (principal); E11.52 Type 2 diabetes mellitus with diabetic peripheral angiopathy with gangrene; E08.621 Diabetes mellitus due to underlying condition with foot ulcer; L97.524 Non-pressure chronic ulcer of other part of left foot with necrosis of bone; L97.502 Non-pressure chronic ulcer of other part of unspecified foot with fat layer exposed; L97.402 Non-pressure chronic ulcer of unspecified heel and midfoot with fat layer exposed; L97.404 Non-pressure chronic ulcer of unspecified heel and midfoot with necrosis of bone; E44.1 Mild protein-calorie malnutrition; M86.9 Osteomyelitis, unspecified; E11.59 Type 2 diabetes mellitus with other circulatory complications; E11.42 Type 2 diabetes mellitus with diabetic polyneuropathy; T31.11 Burns involving 10-19% of body surface with 10-19% third degree burns; M51.17 Intervertebral disc disorders with radiculopathy, lumbosacral region; M51.16 Intervertebral disc disorders with radiculopathy, lumbar region; E78.5 Hyperlipidemia, unspecified; H92.02 Otalgia, left ear; R26.2 Difficulty in walking, not elsewhere classified; I10 Essential (primary) hypertension; T25.32 Burn of third degree of foot; Z85.828 Personal history of other malignant neoplasm of skin
CPT/HCPCS: 11042; 15275; 29445; 82962; 99183; 99213; Q4186; G0277; G0463

== ENCOUNTER 2021-12-05 09:00 | Outpatient (RCR) | payer MEDICARE, SELFPAY ==
[2021-11-05 00:39] VITALS: BP 143/72; PULSE 85; RESP 16; TEMP 35.9
[2021-11-05 08:51] LABS: Bedside Glucose 201 mg/dL (70-110)
[2021-11-05 10:45] VITALS: BP 155/83; BP 157/88; PULSE 83; PULSE 97; RESP 18; TEMP 35.7
[2021-11-05 11:06] LABS: Bedside Glucose 207 mg/dL (70-110)
[2021-11-06 08:56] LABS: Bedside Glucose 175 mg/dL (70-110)
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
[2021-11-06 09:22] VITALS: BP 135/76; BP 158/86; PULSE 91; PULSE 93; RESP 17; TEMP 36.1
[2021-11-06 11:11] LABS: Bedside Glucose 216 mg/dL (74-106)
[2021-11-06 11:38] VITALS: BP 158/86; PULSE 91; RESP 18; TEMP 36.1
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
[2021-11-07 09:01] LABS: Bedside Glucose 222 mg/dL (74-106)
[2021-11-07 11:11] LABS: Bedside Glucose 230 mg/dL (74-106)
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
[2021-11-07 13:14] VITALS: BP 150/76; BP 162/90; PULSE 92; PULSE 95; RESP 17; TEMP 36
[2021-11-08 08:57] LABS: Bedside Glucose 239 mg/dL (74-106)
[2021-11-08 11:10] LABS: Bedside Glucose 242 mg/dL (74-106)
[2021-11-08 11:57] VITALS: BP 125/86; BP 148/75; PULSE 85; PULSE 95; RESP 17; TEMP 36.1
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
[2021-11-11 09:06] LABS: Bedside Glucose 194 mg/dL (74-106)
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
[2021-11-11 09:44] VITALS: BP 148/85; BP 160/83; PULSE 83; RESP 16; RESP 17; TEMP 35.9
[2021-11-11 11:25] LABS: Bedside Glucose 183 mg/dL (74-106)
[2021-11-12 09:01] LABS: Bedside Glucose 212 mg/dL (74-106)
[2021-11-12 11:20] LABS: Bedside Glucose 190 mg/dL (74-106)
[2021-11-12 11:59] VITALS: BP 143/76; BP 158/78; PULSE 84; PULSE 87; RESP 15; RESP 16; TEMP 36.1
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
[2021-11-13 08:51] LABS: Bedside Glucose 241 mg/dL (74-106)
[2021-11-13 09:41] VITALS: BP 157/84; BP 161/77; PULSE 86; PULSE 87; RESP 15; RESP 17; TEMP 35.4
[2021-11-13 11:06] LABS: Bedside Glucose 204 mg/dL (74-106)
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
[2021-11-13 11:12] VITALS: BP 161/77; PULSE 86; RESP 17; TEMP 35.4
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
[2021-11-14 08:41] LABS: Bedside Glucose 231 mg/dL (74-106)
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
[2021-11-14 10:59] VITALS: BP 150/78; BP 152/67; PULSE 84; PULSE 91; RESP 16; RESP 17; TEMP 36.4
[2021-11-14 11:07] LABS: Bedside Glucose 225 mg/dL (74-106)
[2021-11-15 09:01] LABS: Bedside Glucose 198 mg/dL (74-106)
[2021-11-15 11:16] LABS: Bedside Glucose 204 mg/dL (74-106)
[2021-11-15 11:39] VITALS: BP 151/81; BP 155/70; PULSE 83; PULSE 85; RESP 16; RESP 17; TEMP 35.2
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
[2021-11-18 09:06] LABS: Bedside Glucose 200 mg/dL (74-106)
[2021-11-18 11:31] LABS: Bedside Glucose 205 mg/dL (74-106)
[2021-11-18 12:01] VITALS: BP 152/61; BP 159/72; PULSE 84; RESP 16; RESP 17; TEMP 36.1
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
[2021-11-19 08:51] LABS: Bedside Glucose 188 mg/dL (74-106)
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
[2021-11-19 11:06] LABS: Bedside Glucose 193 mg/dL (74-106)
[2021-11-19 11:14] VITALS: BP 129/66; BP 144/78; PULSE 82; PULSE 85; RESP 16; RESP 17; TEMP 35.9
[2021-11-20 08:46] LABS: Bedside Glucose 182 mg/dL (74-106)
[2021-11-20 10:50] LABS: Bedside Glucose 159 mg/dL (74-106)
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
[2021-11-20 11:08] VITALS: BP 147/71; PULSE 84; RESP 18; TEMP 36.3
[2021-11-20 11:36] VITALS: BP 147/71; BP 153/74; PULSE 84; PULSE 87; RESP 17; TEMP 36.3
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
[2021-11-21 09:01] LABS: Bedside Glucose 213 mg/dL (74-106)
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
[2021-11-21 11:26] LABS: Bedside Glucose 217 mg/dL (74-106)
[2021-11-21 12:05] VITALS: BP 123/70; BP 153/84; PULSE 92; PULSE 98; RESP 17; TEMP 36.3
[2021-11-22 08:46] LABS: Bedside Glucose 176 mg/dL (74-106)
[2021-11-22 11:06] LABS: Bedside Glucose 216 mg/dL (74-106)
[2021-11-22 11:15] VITALS: BP 135/75; BP 160/81; PULSE 89; PULSE 95; RESP 17; RESP 18; TEMP 36.2
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
[2021-11-25 09:00] LABS: Bedside Glucose 208 mg/dL (74-106)
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
[2021-11-25 11:31] LABS: Bedside Glucose 158 mg/dL (74-106)
[2021-11-25 11:41] VITALS: BP 149/85; BP 151/74; PULSE 82; PULSE 84; RESP 16; RESP 17; TEMP 36
[2021-11-26 08:56] LABS: Bedside Glucose 234 mg/dL (74-106)
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
[2021-11-26 11:21] LABS: Bedside Glucose 213 mg/dL (74-106)
[2021-11-26 11:34] VITALS: BP 140/79; BP 151/79; PULSE 84; PULSE 85; RESP 15; RESP 16; TEMP 35.8
[2021-11-27 08:56] LABS: Bedside Glucose 204 mg/dL (74-106)
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
[2021-11-27 11:12] LABS: Bedside Glucose 155 mg/dL (74-106)
[2021-11-27 11:18] VITALS: BP 137/79; PULSE 82; RESP 16; TEMP 35.9
[2021-11-27 11:25] VITALS: BP 137/79; BP 139/79; BP 144/70; PULSE 82; PULSE 83; RESP 16; TEMP 35.9
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
[2021-11-29 08:56] LABS: Bedside Glucose 161 mg/dL (74-106)
[2021-11-29 11:21] LABS: Bedside Glucose 193 mg/dL (74-106)
[2021-11-29 11:29] VITALS: BP 145/82; BP 152/84; PULSE 84; PULSE 86; RESP 16; TEMP 35.6
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
[2021-12-02 08:55] LABS: Bedside Glucose 188 mg/dL (74-106)
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
[2021-12-02 11:25] LABS: Bedside Glucose 187 mg/dL (74-106)
[2021-12-02 11:27] VITALS: BP 148/76; BP 159/84; PULSE 84; RESP 17; TEMP 35.6
[2021-12-03 08:41] LABS: Bedside Glucose 216 mg/dL (74-106)
[2021-12-03 11:00] VITALS: BP 145/73; BP 156/84; PULSE 84; PULSE 86; RESP 16; RESP 17; TEMP 36.1
[2021-12-03 11:00] LABS: Bedside Glucose 202 mg/dL (74-106)
[2021-12-03 11:18] VITALS: BP 156/87; PULSE 86; RESP 17; TEMP 36.1
--- NOTE | 2021-12-03 12:37 | PN.PCM_ITS ---
History of Present Illness Date of Service: 12/03/21 Chief Complaint: Second and third degree barr on the plantar aspect of both feet also now with osteomyelitis of the left foot History of Wound: This is a 66-year-old female who is a known diabetic. She also suffers from diabetic neuropathy. She had deteriorization in particular to the left foot and MRI confirmed osteomyelitis of the fifth metatarsal. She continues hyperbaric oxygen therapy and reports the sessions are going well. She is with her family member today. She denies fever, chill, nausea, vomiting, purulence or odor. She is ready to proceed with epi fix. She kept her right lower extremity total contact cast clean, dry, and intact last week as advised. Progress of Wound: Bilateral improvement Objective Data Objective Data Vital Signs: Vital Signs Temp Pulse Resp BP 96.9 F L 86 17 156/87 H 12/03/21 11:18 12/03/21 11:18 12/03/21 11:18 12/03/21 11:18 Oxygen Delivery Method Room Air Lab / Micro Data Labs: Laboratory Results - last 24 hr 12/03/21 08:35: POC Glucose 216 H 12/03/21 10:42: POC Glucose 202 H Physical Exam Extremity Extremity Narrative: no cyanosis, no calf tenderness, diminished pulses muscle wasting noted. Skin Skin Narrative: no purulence, no erythema, no streaking, no odor. Adjacent skin is atrophic and thin. Plantar lateral right foot ulcer is 100% granular without deep probing; reduced size. Reduced inflammation and size is noted. There is also no longer exposed bone or deep tissue exposure . lateral plantar left foot ulcer granular base that is improved with significant ulcer size reduction. no exposed bone, necrosis or maceration noted here either Wound Narrative: Neuro Neuro Narrative: lack of normal epicritic sensation via light touch consistent with neuropathy Debridement Note Debridement Note Post-Debridement Measurements and Additional Note: Post-Debridement Measurements/Treatment JAY - Nurse 1 - General Ulcer Assessment Start: 11/05/21 10:45 Freq: Status: Active Protocol: SOBIA Activity Type Activity Date Activity User E-Sign Co-Sign Detail Recorded Client Recorded Date Recorded By Document 11/06/21 11:38 RB [id number] 11/06/21 11:41 RB Document 11/13/21 11:12 DL [id number] 11/13/21 11:25 DL Document 11/20/21 11:08 DL [id number] 11/20/21 11:20 DL Document 11/27/21 11:18 ML [id number] 11/27/21 11:19 ML Document 11/27/21 11:25 DL [id number] 11/27/21 11:37 DL Document 12/03/21 11:18 BMF [id number] 12/03/21 11:29 BMF 11/06/21 11/13/21 11/20/21 11:38 11:12 11:08 WC - Today's Visit Information Type of service Follow-up Visit Follow-up Visit Follow-up Visit (Physician/ELECTRONIC CALIBRATION TECHNICIAN (Physician/ELECTRONIC CALIBRATION TECHNICIAN (Physician/ELECTRONIC CALIBRATION TECHNICIAN ) ) ) Arrival Mode Ambulatory, Walker Ambulatory Walker,Other Transfer Assistance None None None Patient Identification Verified (Name & Yes Yes Yes ) Patient Requires Transmission-Based No Precautions Safety Precautions NA Finger Stick Blood Sugar(mg/dl) (if 175 204 182 indicated): Blood Sugar Done During Done During Stated by this Visit this Visit Patient Vital Signs Temperature (97.8 F-99.1 F) 97 F L 95.7 F L 97.4 F L Temperature Source Temporal Temporal Temporal Pulse Rate (60-100) 91 86 84 Pulse Location Monitor Monitor Monitor Respiratory Rate (12-18) 18 17 18 Respiratory rate source Observation Observation Observation Oxygen Delivery Method Blood Pressure (90/60-120/80) 158/86 H 161/77 H 147/71 H Blood Pressure Mean (mm Hg) 110 105 96 Source Monitor Monitor Monitor Position Semi-Fowlers Sitting Blood Pressure Location Left Arm Left Arm History Since Last Visit- (Skip if this is Patient's initial visit) Have you changed medications since your No No No last visit? Any new allergies or adverse reactions No No No Had a fall/change in ADL's that may No No No increase risk of falls Signs or symptoms of abuse and/or No No No neglect since last visit Have you been in the hospital since your No No No last visit? Has dressing in place as prescribed Yes Yes Yes Has compression in place as prescribed No Yes N/A Has offloadiing in place as prescribed No Yes Yes Experienced any changes in pain level or No No No management Left Footwear Surgical Shoe with pressure relief insole Right Footwear Total Contact Total Contact Cast Cast Pain Scale: 0-10 Numeric Is Patient Pain Free? Yes Yes Yes 11/27/21 11/27/21 12/03/21 11:18 11:25 11:18 - Today's Visit Information Type of service Follow-up Visit Follow-up Visit Follow-up Visit (Physician/ELECTRONIC CALIBRATION TECHNICIAN (Physician/ELECTRONIC CALIBRATION TECHNICIAN (Physician/ELECTRONIC CALIBRATION TECHNICIAN ) ) ) Arrival Mode Walker Ambulatory Ambulatory, Walker Transfer Assistance None None None Patient Identification Verified (Name & Yes Yes Yes ) Patient Requires Transmission-Based No No No Precautions Safety Precautions NA Finger Stick Blood Sugar(mg/dl) (if 155 202 indicated): Blood Sugar Done During Stated by this Visit Patient Vital Signs Temperature (97.8 F-99.1 F) 96.7 F L 96.9 F L Temperature Source Temporal Temporal Temporal Pulse Rate (60-100) 82 82 86 Pulse Location Monitor Monitor Monitor Respiratory Rate (12-18) 16 16 17 Respiratory rate source Observation Observation Observation Oxygen Delivery Method Room Air Blood Pressure (90/60-120/80) 137/79 H 139/79 H 156/87 H Blood Pressure Mean (mm Hg) 98 99 110 Source Monitor Monitor Monitor Position Sitting Sitting Blood Pressure Location Left Arm Left Arm History Since Last Visit- (Skip if this is Patient's initial visit) Have you changed medications since your No No No last visit? Any new allergies or adverse reactions No No No Had a fall/change in ADL's that may No No No increase risk of falls Signs or symptoms of abuse and/or No No No neglect since last visit Have you been in the hospital since your No No No last visit? Has dressing in place as prescribed Yes Yes Yes Has compression in place as prescribed Yes N/A Yes Has offloadiing in place as prescribed Yes Yes Yes Experienced any changes in pain level or No No No management Left Footwear Removable Cast Total Contact Walker/Walking Cast Boot Right Footwear Surgical Shoe Total Contact Surgical Shoe with pressure Cast with pressure relief insole relief insole Pain Scale: 0-10 Numeric Is Patient Pain Free? Yes Yes Yes - Nurse 1 - General Ulcer Measurement Start: 11/05/21 10:45 Freq: Status: Active Protocol: Activity Type Activity Date Activity User E-Sign Co-Sign Detail Recorded Client Recorded Date Recorded By Document 11/06/21 11:38 RB [id number] 11/06/21 11:41 RB Document 11/13/21 11:12 DL [id number] 11/13/21 11:25 DL Document 11/20/21 11:08 DL [id number] 11/20/21 11:20 DL Document 11/27/21 11:25 DL [id number] 11/27/21 11:37 DL Document 12/03/21 11:18 BM [id number] 12/03/21 11:29 BMF 11/06/21 11/13/21 11/20/21 11:38 11:12 11:08 Wound Center Nurse 1 9-right hallux -Current Size (cm) - Length 0.1 -Current Size (cm) - Width 0.1 -Current Size (cm) - Depth 0.1 -Total Square Cm 0.01 -Epithelialization Large 67-100% -Exudate Amt None Present -Wound Margin Distinct, Outline Attached -Granulation Amt Large (67-100%) -Slough/Fibrin No -Necrosis Amt None Present (0 %) -Texture (Toyin-wound Skin Appearance) Assessed -Moisture (Toyin-wound Skin Appearance) Assessed,Dry/ Scaly -Color (Toyin-wound Skin Appearance) Assessed -Temperature (Toyin-wound Skin No Abnormality Appearance) (Pt Warm) -Tenderness on Palpation (Toyin-wound No Skin Appearance) -Ulcer Cleansing Soap and Water -Foul Odor after Cleansing No -Anesthetic Used 4% Lidocaine Solution #8 LLE -Combined with other wound No -Current Size (cm) - Length 0.1 -Current Size (cm) - Width 0.1 -Current Size (cm) - Depth 0.1 -Total Square Cm 0.01 -Tunneling No -Undermining/Tunneling No -Circular Undermining No -Exudate Amt Medium -Exudate Type Serosanguineous -Wound Margin Distinct, Outline Attached -Granulation Amt Medium (34-66%) -Granulation Quality [place] -Slough/Fibrin Yes -Necrosis Amt Small (1-33%) -Necrotic Tissue Type Adherent Slough -Structure Exposed N/A -Texture (Toyin-wound Skin Appearance) Assessed -Moisture (Toyin-wound Skin Appearance) Assessed -Color (Toyin-wound Skin Appearance) Assessed -Temperature (Toyin-wound Skin No Abnormality Appearance) (Pt Warm) -Tenderness on Palpation (Toyin-wound No Skin Appearance) -Ulcer Cleansing Wound Cleanser -Foul Odor after Cleansing No -Anesthetic Used 5% Lidocaine Gel #6- L PLANTAR FOOT CLUSTER -Combined with other wound No -Current Size (cm) - Length 5.5 4.6 4.5 -Current Size (cm) - Width 1.5 1.8 1.7 -Current Size (cm) - Depth 0.3 0.3 0.3 -Total Square Cm 8.25 8.28 7.65 -Photo Taken -Epithelialization Medium 34-66% -Tunneling No -Undermining/Tunneling No -Circular Undermining No -Exudate Amt Small Medium Medium -Exudate Type Serosanguineous Serosanguineous -Wound Margin Distinct, Distinct, Distinct, Outline Outline Outline Attached Attached Attached -Granulation Amt Medium (34-66%) Medium (34-66%) Medium (34-66%) -Granulation Quality [place] Hyper- granulation -Slough/Fibrin Yes Yes -Necrosis Amt Small (1-33%) Medium (34-66%) Medium (34-66%) -Necrotic Tissue Type Adherent Slough Adherent Slough -Structure Exposed N/A -Texture (Toyin-wound Skin Appearance) Assessed,Callus Assessed Assessed -Moisture (Toyin-wound Skin Appearance) Assessed Assessed Maceration -Color (Toyin-wound Skin Appearance) Assessed Assessed Assessed -Temperature (Toyin-wound Skin No Abnormality No Abnormality Appearance) (Pt Warm) (Pt Warm) -Tenderness on Palpation (Toyin-wound No No No Skin Appearance) -Ulcer Cleansing Wound Cleanser Soap and Water Soap and Water -Foul Odor after Cleansing No No No -Anesthetic Used 5% Lidocaine 4% Lidocaine 4% Lidocaine Gel Solution Solution #5- R PLANTAR FOOT -Combined with other wound No -Current Size (cm) - Length 2.7 2 1.8 -Current Size (cm) - Width 2.5 1.9 1.8 -Current Size (cm) - Depth 0.3 0.1 1.1 -Total Square Cm 6.75 3.8 3.24 -Photo Taken -Epithelialization -Tunneling No -Undermining/Tunneling No -Circular Undermining No -Exudate Amt Medium Medium Medium -Exudate Type Serosanguineous Serosanguineous Serosanguineous -Wound Margin Distinct, Distinct, Distinct, Outline Outline Outline Attached Attached Attached -Granulation Amt Medium (34-66%) Medium (34-66%) Medium (34-66%) -Granulation Quality Red -Slough/Fibrin Yes -Necrosis Amt Medium (34-66%) Medium (34-66%) Medium (34-66%) -Necrotic Tissue Type Adherent Slough Adherent Slough -Structure Exposed N/A -Texture (Toyin-wound Skin Appearance) Assessed,Callus Assessed Assessed -Moisture (Toyin-wound Skin Appearance) Assessed Assessed, Maceration Maceration -Color (Toyin-wound Skin Appearance) Assessed Assessed -Temperature (Toyin-wound Skin No Abnormality No Abnormality Appearance) (Pt Warm) (Pt Warm) -Tenderness on Palpation (Toyin-wound No No Skin Appearance) -Ulcer Cleansing Wound Cleanser Soap and Water Soap and Water -Foul Odor after Cleansing No No No -Anesthetic Used 5% Lidocaine 4% Lidocaine 4% Lidocaine Gel Solution Solution 11/27/21 12/03/21 11:25 11:18 Wound Center Nurse 1 9-right hallux -Current Size (cm) - Length -Current Size (cm) - Width -Current Size (cm) - Depth -Total Square Cm -Epithelialization -Exudate Amt -Wound Margin -Granulation Amt -Slough/Fibrin -Necrosis Amt -Texture (Toyin-wound Skin Appearance) -Moisture (Toyin-wound Skin Appearance) -Color (Toyin-wound Skin Appearance) -Temperature (Toyin-wound Skin Appearance) -Tenderness on Palpation (Toyin-wound Skin Appearance) -Ulcer Cleansing -Foul Odor after Cleansing -Anesthetic Used #8 LLE -Combined with other wound -Current Size (cm) - Length -Current Size (cm) - Width -Current Size (cm) - Depth -Total Square Cm -Tunneling -Undermining/Tunneling -Circular Undermining -Exudate Amt -Exudate Type -Wound Margin -Granulation Amt -Granulation Quality -Slough/Fibrin -Necrosis Amt -Necrotic Tissue Type -Structure Exposed -Texture (Toyin-wound Skin Appearance) -Moisture (Toyin-wound Skin Appearance) -Color (Toyin-wound Skin Appearance) -Temperature (Toyin-wound Skin Appearance) -Tenderness on Palpation (Toyin-wound Skin Appearance) -Ulcer Cleansing -Foul Odor after Cleansing -Anesthetic Used #6- L PLANTAR FOOT CLUSTER -Combined with other wound No -Current Size (cm) - Length 4.5 3.9 -Current Size (cm) - Width 2 1.5 -Current Size (cm) - Depth 0.2 0.2 -Total Square Cm 9.0 5.85 -Photo Taken No No -Epithelialization Small 1-33% -Tunneling No -Undermining/Tunneling No -Circular Undermining No -Exudate Amt Medium Large -Exudate Type Serosanguineous Serosanguineous -Wound Margin Thickened Distinct, Outline Attached -Granulation Amt Large (67-100%) Large (67-100%) -Granulation Quality [place] -Slough/Fibrin Yes -Necrosis Amt None Present (0 Small (1-33%) %) -Necrotic Tissue Type Adherent Slough -Structure Exposed N/A -Texture (Toyin-wound Skin Appearance) Callus,Scarring Assessed,Callus -Moisture (Toyin-wound Skin Appearance) No Abnormality Assessed, Maceration,Dry/ Scaly -Color (Toyin-wound Skin Appearance) No Abnormality Assessed, Erythema -Temperature (Toyin-wound Skin No Abnormality No Abnormality Appearance) (Pt Warm) (Pt Warm) -Tenderness on Palpation (Toyin-wound No No Skin Appearance) -Ulcer Cleansing Not Cleansed Soap and Water -Foul Odor after Cleansing No No -Anesthetic Used 4% Lidocaine 4% Lidocaine Solution Solution #5- R PLANTAR FOOT -Combined with other wound No -Current Size (cm) - Length 1.4 1.4 -Current Size (cm) - Width 1.4 1.6 -Current Size (cm) - Depth 0.1 0.2 -Total Square Cm 1.96 2.24 -Photo Taken No No -Epithelialization Small 1-33% -Tunneling No -Undermining/Tunneling No -Circular Undermining No -Exudate Amt Medium Medium -Exudate Type Serosanguineous Serosanguineous -Wound Margin Thickened Distinct, Outline Attached -Granulation Amt Large (67-100%) Large (67-100%) -Granulation Quality [place] Hyper- granulation, [place] -Slough/Fibrin No -Necrosis Amt Small (1-33%) None Present (0 %) -Necrotic Tissue Type Adherent Slough -Structure Exposed N/A -Texture (Toyin-wound Skin Appearance) Scarring Assessed,Callus ,Scarring -Moisture (Toyin-wound Skin Appearance) Maceration Assessed -Color (Toyin-wound Skin Appearance) No Abnormality Assessed, Erythema -Temperature (Toyin-wound Skin No Abnormality No Abnormality Appearance) (Pt Warm) (Pt Warm) -Tenderness on Palpation (Toyin-wound No Yes Skin Appearance) -Ulcer Cleansing Soap and Water Soap and Water -Foul Odor after Cleansing No No -Anesthetic Used 4% Lidocaine 4% Lidocaine Solution Solution WC - Nurse 2 - General Ulcer CM Notes Start: 11/05/21 10:45 Freq: Status: Active Protocol: Activity Type Activity Date Activity User E-Sign Co-Sign Detail Recorded Client Recorded Date Recorded By Document 11/06/21 11:45 [id number] 11/06/21 11:56 Document 11/13/21 11:30 [id number] 11/14/21 08:13 Document 11/20/21 11:38 [id number] 11/20/21 11:42 Document 11/27/21 11:59 [id number] 11/27/21 12:03 Document 12/03/21 11:58 [id number] 12/03/21 12:00 11/06/21 11/13/21 11/20/21 11:45 11:30 11:38 Wound Center Nurse 2 9-right hallux -Time 11:52 -Correct Patient Yes No -Correct Side, Site, Position Yes No -Correct Procedure Yes No -Procedure Performed Yes No -Type of Procedure Debridement -Clinical Debridement Subcutaneous -Tissue Removed Subcutaneous -Post Debridement (cm) - Length 0.2 0 -Post Debridement (cm) - Width 0.1 0 -Post Debridement (cm) - Depth 0.1 0 -Total Square (Post) (cm) 0.02 0 -Area of Debridement (cm) - Length 0.2 0 -Area of Debridement (cm) - Width 0.1 0 -Total Square (Area) (cm) 0.02 0 -Tunneling No -Undermining/Tunneling No -Circular Undermining No -Wound/Ulcer Outcome Not Healed Healed- Epithelialized -Ulcer Cleansing Rinsed/ Irrigated with Saline -Foul Odor after Cleansing No -Bioengineered Tissue No -Bleeding Controlled with Pressure -Treatment Response Procedure Tolerated Well -Offloading No -Debridement - Subq, 1st 20sq cm No #8 LLE -Correct Patient No -Correct Side, Site, Position No -Correct Procedure No -Procedure Performed No -Post Debridement (cm) - Length 0 -Post Debridement (cm) - Width 0 -Post Debridement (cm) - Depth 0 -Total Square (Post) (cm) 0 -Area of Debridement (cm) - Length 0 -Area of Debridement (cm) - Width 0 -Total Square (Area) (cm) 0 -Wound/Ulcer Outcome Healed- Epithelialized #6- L PLANTAR FOOT CLUSTER -Time 11:46 08:11 11:38 -Correct Patient Yes Yes Yes -Correct Side, Site, Position Yes Yes Yes -Correct Procedure Yes Yes Yes -Procedure Performed Yes Yes Yes -Type of Procedure Debridement Debridement Debridement -Clinical Debridement Subcutaneous Subcutaneous Subcutaneous -Tissue Removed Subcutaneous Subcutaneous Subcutaneous -Post Debridement (cm) - Length 5.6 4.6 4.5 -Post Debridement (cm) - Width 1.6 1.9 1.8 -Post Debridement (cm) - Depth 0.3 0.3 0.3 -Total Square (Post) (cm) 8.96 8.74 8.10 -Area of Debridement (cm) - Length 5.6 4.6 4.5 -Area of Debridement (cm) - Width 1.6 1.9 1.8 -Total Square (Area) (cm) 8.96 8.74 8.10 -Tunneling No No No -Undermining/Tunneling No No No -Circular Undermining No No No -Wound/Ulcer Outcome Not Healed Not Healed Not Healed -Ulcer Cleansing Rinsed/ Rinsed/ Rinsed/ Irrigated with Irrigated with Irrigated with Saline Saline Saline -Foul Odor after Cleansing No No No -Bioengineered Tissue Yes Yes Yes -Type of Bioengineered Tissue Epifix Mesh Epifix Mesh Epifix Mesh -Expiration Date 07/08/26 08/07/26 08/07/26 -Product Lot Number [id number] -Percent Used 100 100 100 -Lot number of Saline Used [id number] -Bleeding Controlled with Pressure Pressure Pressure -Treatment Response Procedure Procedure Procedure Tolerated Well Tolerated Well Tolerated Well -Offloading No Yes Yes -Type of Offloading Surgical Shoe Camwalker Surgical Shoe -Debridement - Subq, 1st 20sq cm No No No -Apply Skin Sub - 1st 25 sq cm - Feet 1 1 1 -Epifix Mesh (per sq cm) 11 11 11 #5- R PLANTAR FOOT -Time 11:46 08:12 11:39 -Correct Patient Yes Yes Yes -Correct Side, Site, Position Yes Yes Yes -Correct Procedure Yes Yes Yes -Procedure Performed Yes Yes Yes -Type of Procedure Debridement Debridement Debridement -Clinical Debridement Subcutaneous Subcutaneous Subcutaneous -Tissue Removed Subcutaneous Subcutaneous Dermis -Post Debridement (cm) - Length 2.8 2 1.8 -Post Debridement (cm) - Width 2.5 2 1.9 -Post Debridement (cm) - Depth 0.3 0.1 1.1 -Total Square (Post) (cm) 7.00 4 3.42 -Area of Debridement (cm) - Length 2.8 2 1.8 -Area of Debridement (cm) - Width 2.5 2 1.9 -Total Square (Area) (cm) 7.00 4 3.42 -Tunneling No No No -Undermining/Tunneling No No No -Circular Undermining No No No -Wound/Ulcer Outcome Not Healed Not Healed Not Healed -Ulcer Cleansing Rinsed/ Rinsed/ Rinsed/ Irrigated with Irrigated with Irrigated with Saline Saline Saline -Foul Odor after Cleansing No No No -Bioengineered Tissue No No No -Bleeding Controlled with Pressure Pressure Pressure -Treatment Response Procedure Procedure Procedure Tolerated Well Tolerated Well Tolerated Well -Offloading Yes Yes Yes -Type of Offloading Total Contact Total Contact Total Contact Cast (TCC) - Cast (TCC) - Cast (TCC) - Right ($) Right ($) Right ($) -Debridement - Subq, 1st 20sq cm Yes Yes Yes Pain Scale: 0-10 Numeric Is Patient Pain Free? Yes Yes Yes 11/27/21 12/03/21 11:59 11:58 Wound Center Nurse 2 9-right hallux -Time -Correct Patient -Correct Side, Site, Position -Correct Procedure -Procedure Performed -Type of Procedure -Clinical Debridement -Tissue Removed -Post Debridement (cm) - Length -Post Debridement (cm) - Width -Post Debridement (cm) - Depth -Total Square (Post) (cm) -Area of Debridement (cm) - Length -Area of Debridement (cm) - Width -Total Square (Area) (cm) -Tunneling -Undermining/Tunneling -Circular Undermining -Wound/Ulcer Outcome -Ulcer Cleansing -Foul Odor after Cleansing -Bioengineered Tissue -Bleeding Controlled with -Treatment Response -Offloading -Debridement - Subq, 1st 20sq cm #8 LLE -Correct Patient -Correct Side, Site, Position -Correct Procedure -Procedure Performed -Post Debridement (cm) - Length -Post Debridement (cm) - Width -Post Debridement (cm) - Depth -Total Square (Post) (cm) -Area of Debridement (cm) - Length -Area of Debridement (cm) - Width -Total Square (Area) (cm) -Wound/Ulcer Outcome #6- L PLANTAR FOOT CLUSTER -Time 12:00 11:58 -Correct Patient Yes Yes -Correct Side, Site, Position Yes Yes -Correct Procedure Yes Yes -Procedure Performed Yes Yes -Type of Procedure Debridement Debridement -Clinical Debridement Subcutaneous Subcutaneous -Tissue Removed Subcutaneous Subcutaneous -Post Debridement (cm) - Length 4.5 4 -Post Debridement (cm) - Width 2.1 1.5 -Post Debridement (cm) - Depth 0.2 0.2 -Total Square (Post) (cm) 9.45 6.0 -Area of Debridement (cm) - Length 4.5 4.0 -Area of Debridement (cm) - Width 2.1 1.5 -Total Square (Area) (cm) 9.45 6.00 -Tunneling No No -Undermining/Tunneling No No -Circular Undermining No No -Wound/Ulcer Outcome Not Healed Not Healed -Ulcer Cleansing Rinsed/ Rinsed/ Irrigated with Irrigated with Saline Saline -Foul Odor after Cleansing No No -Bioengineered Tissue Yes No -Type of Bioengineered Tissue Epifix Mesh -Expiration Date 07/08/26 -Product Lot Number [id number] -Percent Used 100 -Lot number of Saline Used [id number] -Bleeding Controlled with Pressure Pressure -Treatment Response Procedure Procedure Tolerated Well Tolerated Well -Offloading Yes Yes -Type of Offloading Total Contact Total Contact Cast (TCC) - Cast (TCC) - Left ($) Left ($) -Debridement - Subq, 1st 20sq cm No Yes -Apply Skin Sub - 1st 25 sq cm - Feet 1 -Epifix Mesh (per sq cm) 11 #5- R PLANTAR FOOT -Time 12:02 11:59 -Correct Patient Yes Yes -Correct Side, Site, Position Yes Yes -Correct Procedure Yes Yes -Procedure Performed Yes Yes -Type of Procedure Debridement Debridement -Clinical Debridement Subcutaneous Subcutaneous -Tissue Removed Subcutaneous Subcutaneous -Post Debridement (cm) - Length 1.5 1.5 -Post Debridement (cm) - Width 1.5 1.6 -Post Debridement (cm) - Depth 0.1 0.2 -Total Square (Post) (cm) 2.25 2.40 -Area of Debridement (cm) - Length 1.5 1.5 -Area of Debridement (cm) - Width 1.5 1.6 -Total Square (Area) (cm) 2.25 2.40 -Tunneling No No -Undermining/Tunneling No No -Circular Undermining No No -Wound/Ulcer Outcome Not Healed Not Healed -Ulcer Cleansing Rinsed/ Rinsed/ Irrigated with Irrigated with Saline Saline -Foul Odor after Cleansing No No -Bioengineered Tissue No No -Bleeding Controlled with Pressure Pressure -Treatment Response Procedure Procedure Tolerated Well Tolerated Well -Offloading Yes Yes -Type of Offloading Surgical Shoe Surgical Shoe -Debridement - Subq, 1st 20sq cm Yes No Pain Scale: 0-10 Numeric Is Patient Pain Free? Yes Yes WC - Nurse 3 - General Ulcer D/C NN Start: 11/05/21 10:45 Freq: Status: Active Protocol: Activity Type Activity Date Activity User E-Sign Co-Sign Detail Recorded Client Recorded Date Recorded By Document 11/13/21 11:49 RB [id number] 11/13/21 11:50 RB Document 11/20/21 12:08 RB [id number] 11/20/21 12:09 RB Document 11/27/21 12:00 RB [id number] 11/27/21 12:02 RB Document 12/03/21 12:09 ML [id number] 12/03/21 12:12 ML 11/13/21 11/20/21 11/27/21 11:49 12:08 12:00 Wound Care Nurse 3 #6- L PLANTAR FOOT CLUSTER -Primary Dressing Applied Mepilex Border -Other Dressing larissa primary layer of TCC applied -Primary Dressing Covered/Secured with Dry Gauze,Dry Dry Gauze,Dry Gauze & Roll Gauze & Roll Gauze,Secured Gauze,Secured with Tape with Tape -Mepilex Border 1 #5- R PLANTAR FOOT -Other Dressing 3 INCH primary primary layer larissa laYER OF TCC of TCC applied APLLIED 3 inch -Primary Dressing Covered/Secured with Dry Gauze,Dry Gauze & Roll Gauze,Secured with Tape Right -Lotion applied to leg before compression wrap Treatment Response Procedure Procedure Tolerated Well Tolerated Well Pain Scale: 0-10 Numeric Is Patient Pain Free? Yes Yes Yes WC - Visit Discharge Discharge Condition Stable Stable Stable Ambulatory Status Wheelchair Ambulatory, Ambulatory, Walker Walker Transportation Private Auto Private Auto Private Auto Medication Reconcilliation completed & No No No provided to patient/care

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
[2021-12-04 08:26] LABS: Bedside Glucose 191 mg/dL (74-106)
[2021-12-04 10:36] LABS: Bedside Glucose 197 mg/dL (74-106)
[2021-12-04 10:37] VITALS: BP 150/77; BP 155/72; PULSE 86; PULSE 91; RESP 16; RESP 17; TEMP 35.4
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
[2021-12-05 09:01] LABS: Bedside Glucose 262 mg/dL (74-106)
[2021-12-05 09:21] LABS: Bedside Glucose 249 mg/dL (74-106)
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
[2021-12-05 11:41] VITALS: BP 146/72; BP 159/86; PULSE 101; PULSE 95; RESP 17; TEMP 35.9
[2021-12-05 11:41] LABS: Bedside Glucose 193 mg/dL (74-106)
== END 2021-12-05 23:59 | disposition home or self-care (01) ==
LOC: WC 09:00
PROVIDERS: PCP Family Medicine; Visit Provider Podiatrist
DX: E11.621 Type 2 diabetes mellitus with foot ulcer (principal); E11.52 Type 2 diabetes mellitus with diabetic peripheral angiopathy with gangrene; E08.621 Diabetes mellitus due to underlying condition with foot ulcer; E08.622 Diabetes mellitus due to underlying condition with other skin ulcer; L97.404 Non-pressure chronic ulcer of unspecified heel and midfoot with necrosis of bone; L97.524 Non-pressure chronic ulcer of other part of left foot with necrosis of bone; L97.514 Non-pressure chronic ulcer of other part of right foot with necrosis of bone; L97.512 Non-pressure chronic ulcer of other part of right foot with fat layer exposed; E44.1 Mild protein-calorie malnutrition; M86.9 Osteomyelitis, unspecified; E11.59 Type 2 diabetes mellitus with other circulatory complications; M54.16 Radiculopathy, lumbar region; T25.32 Burn of third degree of foot; M54.17 Radiculopathy, lumbosacral region; I10 Essential (primary) hypertension; E78.5 Hyperlipidemia, unspecified; R60.0 Localized edema; Z85.828 Personal history of other malignant neoplasm of skin
CPT/HCPCS: 11042; 15275; 29445; 82962; 99183; Q4186; G0277

== ENCOUNTER 2022-01-03 08:30 | Outpatient (RCR) | payer MEDICARE, SELFPAY ==
[2021-12-06 00:39] VITALS: BP 146/72; PULSE 101; RESP 17; TEMP 35.9
[2021-12-06 09:15] LABS: Bedside Glucose 243 mg/dL (74-106)
[2021-12-06 09:15] LABS: Bedside Glucose 258 mg/dL (74-106)
[2021-12-06 11:30] LABS: Bedside Glucose 211 mg/dL (74-106)
[2021-12-06 11:34] VITALS: BP 142/83; PULSE 102; RESP 16; TEMP 35.7
[2021-12-06 11:51] VITALS: BP 142/83; BP 154/75; PULSE 102; PULSE 98; RESP 16; RESP 17; TEMP 35.7
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
[2021-12-09 08:51] LABS: Bedside Glucose 228 mg/dL (74-106)
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
[2021-12-09 11:11] LABS: Bedside Glucose 211 mg/dL (74-106)
[2021-12-09 11:14] VITALS: BP 131/67; BP 152/80; PULSE 84; PULSE 85; RESP 17; TEMP 36.1
[2021-12-10 09:00] LABS: Bedside Glucose 198 mg/dL (74-106)
[2021-12-10 11:07] VITALS: BP 145/74; BP 147/74; PULSE 83; RESP 16; RESP 17; TEMP 35.8
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
[2021-12-10 11:31] LABS: Bedside Glucose 210 mg/dL (74-106)
[2021-12-11 08:56] LABS: Bedside Glucose 262 mg/dL (74-106)
[2021-12-11 09:15] LABS: Bedside Glucose 264 mg/dL (74-106)
[2021-12-11 09:30] LABS: Bedside Glucose 252 mg/dL (74-106)
[2021-12-11 11:48] VITALS: BP 160/80; PULSE 83; RESP 18; TEMP 36.1
[2021-12-11 11:50] LABS: Bedside Glucose 214 mg/dL (74-106)
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
[2021-12-11 13:34] VITALS: BP 154/75; BP 160/80; PULSE 81; PULSE 83; RESP 16; RESP 17; TEMP 36.1
[2021-12-12 09:01] LABS: Bedside Glucose 233 mg/dL (74-106)
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
[2021-12-12 11:10] LABS: Bedside Glucose 213 mg/dL (74-106)
[2021-12-12 11:31] VITALS: BP 153/93; BP 156/77; PULSE 88; RESP 16; RESP 17; TEMP 36.1
[2021-12-13 09:05] LABS: Bedside Glucose 208 mg/dL (74-106)
[2021-12-13 11:11] LABS: Bedside Glucose 197 mg/dL (74-106)
[2021-12-13 12:57] VITALS: BP 142/75; BP 162/71; PULSE 81; PULSE 86; RESP 16; RESP 17; TEMP 36
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
[2021-12-16 09:06] LABS: Bedside Glucose 223 mg/dL (74-106)
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
[2021-12-16 11:30] LABS: Bedside Glucose 195 mg/dL (74-106)
[2021-12-16 12:18] VITALS: BP 142/75; BP 148/83; PULSE 83; PULSE 86; RESP 16; TEMP 36.2
[2021-12-17 08:56] LABS: Bedside Glucose 193 mg/dL (74-106)
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
[2021-12-17 11:16] LABS: Bedside Glucose 142 mg/dL (74-106)
[2021-12-17 12:06] VITALS: BP 145/75; BP 168/77; PULSE 77; PULSE 90; TEMP 35.7
[2021-12-18 09:16] LABS: Bedside Glucose 239 mg/dL (74-106)
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
[2021-12-18 11:33] LABS: Bedside Glucose 185 mg/dL (74-106)
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
[2021-12-18 13:02] VITALS: BP 136/79; BP 146/72; PULSE 82; PULSE 84; RESP 16; TEMP 36.2
[2021-12-19 13:06] LABS: Bedside Glucose 193 mg/dL (74-106)
[2021-12-19 15:08] VITALS: BP 120/67; BP 151/70; PULSE 79; PULSE 86; RESP 16; RESP 17; TEMP 36.4
[2021-12-19 15:26] LABS: Bedside Glucose 166 mg/dL (74-106)
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
[2021-12-20 10:41] LABS: Bedside Glucose 200 mg/dL (74-106)
[2021-12-20 12:56] LABS: Bedside Glucose 184 mg/dL (74-106)
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
[2021-12-20 14:22] VITALS: BP 126/71; BP 140/72; PULSE 79; PULSE 86; RESP 16; RESP 17; TEMP 36.2
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
[2021-12-23 08:40] LABS: Bedside Glucose 191 mg/dL (74-106)
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
[2021-12-23 11:05] LABS: Bedside Glucose 194 mg/dL (74-106)
[2021-12-23 13:09] VITALS: BP 135/74; BP 155/70; PULSE 84; PULSE 86; RESP 16; RESP 17; TEMP 36
[2021-12-24 08:55] LABS: Bedside Glucose 215 mg/dL (74-106)
[2021-12-24 11:36] LABS: Bedside Glucose 187 mg/dL (74-106)
[2021-12-24 12:09] VITALS: BP 144/71; BP 146/75; PULSE 82; PULSE 84; RESP 16; TEMP 35.6
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
[2021-12-25 08:45] LABS: Bedside Glucose 221 mg/dL (74-106)
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
[2021-12-25 11:05] VITALS: BP 144/82; PULSE 85; TEMP 36.1
[2021-12-25 11:05] LABS: Bedside Glucose 253 mg/dL (74-106)
[2021-12-25 12:58] VITALS: BP 144/72; BP 144/82; PULSE 85; PULSE 86; RESP 16; RESP 17; TEMP 36.1
--- NOTE | 2021-12-25 14:17 | PCM.WC.PN ---
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 oxygen therapy I recommend continuation. Approval for additional sessions will be requested; follow up with Janice Encinas, clinical nurse practitioner. Diagnostic data: The patient has recently undergone laboratory studies, on July 30, 2021. The results have been previously reviewed, and discussed with the patient. Her hemoglobin is noted to be low, and issues regard to this finding are to be deferred to the patient's primary care physician. The patient has been made aware, however, that nutritional factors appear to be diminished, with a serum prealbumin of 12.1 and a serum albumin of 2.3. The patient has been encouraged to augment her nutritional intake. The patient's hemoglobin A1c is noted to be 9.8, and she has been advised to redouble her efforts at glycemic control, and to collaborate with her primary care physician in this regard. Vascular: A noninvasive lower extremity arterial study, performed August 06, 2021, reveals no evidence of significant arterial occlusive disease in the lower extremities. A venous duplex examination was also performed, revealing no evidence of lower extremity thrombophlebitis. Infection work-up and management: Because of concerns regarding the appearance of the patient's left foot wound, with periwound erythema, odor, and frankly necrotic tissue, swab cultures were obtained previously by Dr. Finnegan: Recently switched to amoxicillin and Flagyl. I saw her in clinic last week and did a moderately aggressive debridement including fifth metatarsal head resection of the left foot in which this body tissue was sent to both microbiology and pathology. Pathology report demonstrates acute osteomyelitis of the fifth metatarsal bone. Microbiology report reveals Prevotella, anaerobic cocci, Meth. resistant Staph. aureus, Enterococcus faecalis, Corynebacterium striatum. She was recently changed to Augmentin and doxycycline. She is seen by infectious disease Doctor Who recommends continuing this. Operating room debridement after MRI is planned. She is scheduled for an MRI on Thursday and I will call her with results. If her condition worsens or she has a status change hospitalist will be considered however the hospital has been at capacity at this time due to Covid pandemic. She is overall stable. Admission after surgery is recommended due to her low hemoglobin levels and for additional infection management. Discussed case with Dr. Amaro at prior visits. The patient is to return in 1 week for reassessment Offloading: Continue right surgical shoes and to avoid laying directly on this site. To avoid increased activity. She was alerted about her new pressure changes and increased callus formation. Discussed more aggressive offloading in which she is stable with a total contact cast for the left lower extremity today. The benefits indications anticipated application management were reviewed. This was applied after verbal consent was obtained according to standard protocol in a well-padded neutral position. She tolerated this well. Note: [employer] speech recognition freight tallier software was used to create portions of this document. Sound-alike and misspelled words, as well as other freight tallier errors may be contained in the documentation.
[2021-12-26 08:56] LABS: Bedside Glucose 233 mg/dL (74-106)
[2021-12-26 11:11] LABS: Bedside Glucose 204 mg/dL (74-106)
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
[2021-12-26 12:54] VITALS: BP 149/78; BP 153/84; PULSE 82; PULSE 88; RESP 16; RESP 17; TEMP 36.1
[2021-12-27 09:01] LABS: Bedside Glucose 239 mg/dL (74-106)
[2021-12-27 11:20] VITALS: BP 145/83; BP 148/71; PULSE 86; PULSE 87; RESP 16; RESP 17; TEMP 36.3
[2021-12-27 11:20] LABS: Bedside Glucose 221 mg/dL (74-106)
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
[2021-12-30 08:40] LABS: Bedside Glucose 194 mg/dL (74-106)
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
[2021-12-30 11:00] LABS: Bedside Glucose 200 mg/dL (74-106)
[2021-12-30 12:05] VITALS: BP 141/68; BP 148/83; PULSE 83; PULSE 84; RESP 16; RESP 17; TEMP 36.3
[2021-12-31 08:50] LABS: Bedside Glucose 219 mg/dL (74-106)
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
[2021-12-31 11:20] LABS: Bedside Glucose 213 mg/dL (74-106)
[2021-12-31 11:23] VITALS: BP 136/85; BP 152/67; PULSE 79; PULSE 83; RESP 15; RESP 16; TEMP 35.8
[2022-01-01 08:46] LABS: Bedside Glucose 233 mg/dL (74-106)
[2022-01-01 11:09] VITALS: BP 148/80; PULSE 81; RESP 18; TEMP 36.2
[2022-01-01 11:10] LABS: Bedside Glucose 223 mg/dL (74-106)
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
[2022-01-01 14:13] VITALS: BP 148/80; BP 152/79; PULSE 81; PULSE 86; RESP 18; RESP 20; TEMP 35.7; TEMP 36.2
[2022-01-02 09:06] LABS: Bedside Glucose 188 mg/dL (74-106)
[2022-01-02 11:26] LABS: Bedside Glucose 126 mg/dL (74-106)
[2022-01-02 11:36] VITALS: BP 142/65; BP 147/84; PULSE 78; PULSE 82; RESP 16; RESP 17; TEMP 36.2
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
[2022-01-03 08:26] LABS: Bedside Glucose 242 mg/dL (74-106)
[2022-01-03 10:20] LABS: Bedside Glucose 212 mg/dL (74-106)
[2022-01-03 11:22] VITALS: BP 129/59; BP 140/69; PULSE 81; PULSE 85; RESP 17; TEMP 36.2
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
== END 2022-01-04 23:59 | disposition home or self-care (01) ==
LOC: WC 08:30
PROVIDERS: PCP Family Medicine; Visit Provider Podiatrist
DX: E11.621 Type 2 diabetes mellitus with foot ulcer (principal); E11.52 Type 2 diabetes mellitus with diabetic peripheral angiopathy with gangrene; E08.621 Diabetes mellitus due to underlying condition with foot ulcer; E08.622 Diabetes mellitus due to underlying condition with other skin ulcer; L97.524 Non-pressure chronic ulcer of other part of left foot with necrosis of bone; L97.514 Non-pressure chronic ulcer of other part of right foot with necrosis of bone; L97.404 Non-pressure chronic ulcer of unspecified heel and midfoot with necrosis of bone; E44.1 Mild protein-calorie malnutrition; M86.072 Acute hematogenous osteomyelitis, left ankle and foot; E11.42 Type 2 diabetes mellitus with diabetic polyneuropathy; E11.65 Type 2 diabetes mellitus with hyperglycemia; E08.65 Diabetes mellitus due to underlying condition with hyperglycemia; T31.11 Burns involving 10-19% of body surface with 10-19% third degree burns; M54.16 Radiculopathy, lumbar region; E78.5 Hyperlipidemia, unspecified; I10 Essential (primary) hypertension; T25.32 Burn of third degree of foot; R60.0 Localized edema; M54.17 Radiculopathy, lumbosacral region; Z85.828 Personal history of other malignant neoplasm of skin
CPT/HCPCS: 11042; 15275; 29445; 82962; 99183; 99212; 99213; Q4186; G0277; G0463

== ENCOUNTER 2022-01-29 10:45 | Outpatient (RCR) | payer MEDICARE, SELFPAY ==
[2022-01-05 00:34] VITALS: BP 140/69; PULSE 85; RESP 17; TEMP 36.2
[2022-01-06 08:21] LABS: Bedside Glucose 158 mg/dL (74-106)
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
[2022-01-06 10:36] LABS: Bedside Glucose 218 mg/dL (74-106)
[2022-01-06 13:17] VITALS: BP 141/75; BP 154/78; PULSE 82; RESP 16; RESP 17; TEMP 36.2
[2022-01-07 08:26] LABS: Bedside Glucose 173 mg/dL (74-106)
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
[2022-01-07 09:46] VITALS: BP 137/76; BP 149/72; PULSE 78; PULSE 79; RESP 16; TEMP 36.1
[2022-01-07 10:46] LABS: Bedside Glucose 158 mg/dL (74-106)
[2022-01-08 08:20] LABS: Bedside Glucose 159 mg/dL (74-106)
[2022-01-08 10:31] LABS: Bedside Glucose 197 mg/dL (74-106)
[2022-01-08 10:41] VITALS: BP 124/67; PULSE 80; RESP 17; TEMP 36
[2022-01-08 11:04] VITALS: BP 124/67; BP 152/79; PULSE 79; PULSE 80; RESP 117; RESP 18; TEMP 36
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
[2022-01-09 08:31] LABS: Bedside Glucose 218 mg/dL (74-106)
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
[2022-01-09 10:46] LABS: Bedside Glucose 170 mg/dL (74-106)
[2022-01-09 11:07] VITALS: BP 143/75; BP 153/89; PULSE 81; PULSE 86; RESP 16; RESP 17; TEMP 36.2
[2022-01-10 08:30] LABS: Bedside Glucose 211 mg/dL (74-106)
[2022-01-10 10:40] LABS: Bedside Glucose 168 mg/dL (74-106)
[2022-01-10 11:05] VITALS: BP 140/70; BP 151/79; PULSE 76; PULSE 79; RESP 16; RESP 17; TEMP 36.6
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
[2022-01-13 08:26] LABS: Bedside Glucose 211 mg/dL (74-106)
[2022-01-13 09:02] VITALS: BP 139/84; BP 154/85; PULSE 80; PULSE 83; RESP 16; RESP 17; TEMP 36.2
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
[2022-01-13 10:40] LABS: Bedside Glucose 205 mg/dL (74-106)
[2022-01-14 08:30] LABS: Bedside Glucose 188 mg/dL (74-106)
[2022-01-14 09:07] VITALS: BP 137/72; BP 144/71; PULSE 75; PULSE 78; RESP 17; RESP 71; TEMP 36.2
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
[2022-01-14 10:36] LABS: Bedside Glucose 179 mg/dL (74-106)
[2022-01-15 08:31] LABS: Bedside Glucose 199 mg/dL (74-106)
[2022-01-15 09:07] VITALS: BP 135/69; BP 143/70; PULSE 80; PULSE 82; RESP 17; TEMP 36.3
[2022-01-15 10:35] LABS: Bedside Glucose 179 mg/dL (74-106)
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
[2022-01-15 11:16] VITALS: BP 135/69; PULSE 82; RESP 18; TEMP 36.3
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
[2022-01-16 09:35] VITALS: BP 146/62; BP 176/69; PULSE 79; PULSE 84; RESP 17; TEMP 36.2
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
[2022-01-16 10:36] LABS: Bedside Glucose 229 mg/dL (74-106)
[2022-01-16 10:36] LABS: Bedside Glucose 216 mg/dL (74-106)
[2022-01-17 08:35] LABS: Bedside Glucose 252 mg/dL (74-106)
[2022-01-17 08:45] LABS: Bedside Glucose 263 mg/dL (74-106)
[2022-01-17 09:05] LABS: Bedside Glucose 284 mg/dL (74-106)
[2022-01-17 10:46] VITALS: BP 163/72; PULSE 89; RESP 16; TEMP 36.7
[2022-01-20 08:30] LABS: Bedside Glucose 187 mg/dL (74-106)
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
[2022-01-20 08:55] VITALS: BP 144/93; BP 145/68; PULSE 76; PULSE 78; RESP 17; TEMP 36.4
[2022-01-20 10:36] LABS: Bedside Glucose 177 mg/dL (74-106)
[2022-01-21 08:30] LABS: Bedside Glucose 205 mg/dL (74-106)
[2022-01-21 08:59] VITALS: BP 140/68; BP 148/72; PULSE 74; PULSE 79; RESP 17; TEMP 36.4; TEMP 36.6
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
[2022-01-21 11:00] LABS: Bedside Glucose 155 mg/dL (74-106)
[2022-01-22 08:30] LABS: Bedside Glucose 187 mg/dL (74-106)
[2022-01-22 10:41] LABS: Bedside Glucose 179 mg/dL (74-106)
[2022-01-22 10:47] VITALS: BP 122/65; BP 151/67; PULSE 76; PULSE 77; RESP 16; RESP 17; TEMP 36.4
[2022-01-22 10:54] VITALS: BP 122/65; PULSE 77; RESP 18; TEMP 36.1
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
[2022-01-29 10:51] VITALS: BP 180/81; PULSE 93; RESP 16; TEMP 36.8
--- NOTE | 2022-01-29 12:53 | PCM.WC.PN ---
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 work-up and management: Because of concerns regarding the appearance of the patient's left foot wound, with periwound erythema, odor, and frankly necrotic tissue, swab cultures were obtained previously by Dr. Finnegan: Recently switched to amoxicillin and Flagyl. I saw her in clinic last week and did a moderately aggressive debridement including fifth metatarsal head resection of the left foot in which this body tissue was sent to both microbiology and pathology. Pathology report demonstrates acute osteomyelitis of the fifth metatarsal bone. Microbiology report reveals Prevotella, anaerobic cocci, Meth. resistant Staph. aureus, Enterococcus faecalis, Corynebacterium striatum. She was recently changed to Augmentin and doxycycline. She is seen by infectious disease Doctor Who recommends continuing this. Operating room debridement after MRI is planned. She is scheduled for an MRI on Thursday and I will call her with results. If her condition worsens or she has a status change hospitalist will be considered however the hospital has been at capacity at this time due to Covid pandemic. She is overall stable. Admission after surgery is recommended due to her low hemoglobin levels and for additional infection management. Discussed case with Dr. Amaro at prior visits. The patient is to return in 1 week for reassessment Offloading: Discussed more aggressive offloading in which she is stable with a total contact cast for the right lower extremity today. The benefits indications anticipated application management were reviewed. This was applied after verbal consent was obtained according to standard protocol in a well-padded neutral position. She tolerated this well. To heel weight-bear left foot with surgical shoe. Note: [employer] speech recognition parking control officer software was used to create portions of this document. Sound-alike and misspelled words, as well as other parking control officer errors may be contained in the documentation. 21 minutes was spent on this encounter. This included face to face and non face to face care including preparing for the visit, reviewing the history, performing the exam, counseling and providing education to the patient, family, or caregiver, ordering medications/test/ procedures if indicated as documented, communicating with other healthcare providers, documenting information in the medical record, interpreting / sharing this information when indicated as documented, and care coordination.
== END 2022-02-04 23:59 | disposition home or self-care (01) ==
LOC: WC 10:45
PROVIDERS: PCP Family Medicine; Visit Provider Podiatrist
DX: E11.621 Type 2 diabetes mellitus with foot ulcer (principal); E11.52 Type 2 diabetes mellitus with diabetic peripheral angiopathy with gangrene; E08.621 Diabetes mellitus due to underlying condition with foot ulcer; E08.622 Diabetes mellitus due to underlying condition with other skin ulcer; L97.524 Non-pressure chronic ulcer of other part of left foot with necrosis of bone; L97.514 Non-pressure chronic ulcer of other part of right foot with necrosis of bone; L97.404 Non-pressure chronic ulcer of unspecified heel and midfoot with necrosis of bone; L97.502 Non-pressure chronic ulcer of other part of unspecified foot with fat layer exposed; L97.402 Non-pressure chronic ulcer of unspecified heel and midfoot with fat layer exposed; E44.1 Mild protein-calorie malnutrition; M86.072 Acute hematogenous osteomyelitis, left ankle and foot; M86.172 Other acute osteomyelitis, left ankle and foot; M86.9 Osteomyelitis, unspecified; E11.59 Type 2 diabetes mellitus with other circulatory complications; E11.42 Type 2 diabetes mellitus with diabetic polyneuropathy; T31.11 Burns involving 10-19% of body surface with 10-19% third degree burns; M54.16 Radiculopathy, lumbar region; E78.5 Hyperlipidemia, unspecified; R60.0 Localized edema; T25.32 Burn of third degree of foot; I10 Essential (primary) hypertension; M54.17 Radiculopathy, lumbosacral region; Z85.828 Personal history of other malignant neoplasm of skin; L85.3 Xerosis cutis; R23.4 Changes in skin texture
CPT/HCPCS: 11042; 15275; 29445; 69210; 82962; 99183; Q4186; G0277

== ENCOUNTER 2022-03-05 10:45 | Outpatient (RCR) | payer MEDICARE, SELFPAY ==
[2022-02-05 00:51] VITALS: BP 180/81; PULSE 93; RESP 16; TEMP 36.8
[2022-02-12 10:51] VITALS: BP 154/58; PULSE 90; RESP 18; TEMP 36.2
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
[2022-02-19 11:22] VITALS: BP 168/74; PULSE 91; RESP 18; TEMP 36.1
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
[2022-02-26 11:00] VITALS: BP 152/77; PULSE 101; RESP 20; TEMP 36.8
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
[2022-02-26 15:22] LABS: M R Staph aureus DNA By PCR Negative (Negative); Probe Check PASS; Specimen Processing Control PASS; Staph aureus DNA By PCR NEGATIVE (Negative)
[2022-03-05 10:54] VITALS: BP 150/74; PULSE 93; RESP 18; TEMP 36.8
--- NOTE | 2022-03-05 11:47 | PN.PCM_ITS ---
History of Present Illness Date of Service: 03/05/22 Chief Complaint: Right foot ulcer follow-up History of Wound: This is a 66-year-old female who is a known diabetic. She also suffers from diabetic neuropathy. She continues hyperbaric oxygen therapy and reports the sessions are going well. She denies fever, chill, nausea, vomiting, purulence or odor. She also kept her right lower extremity total contact cast clean, dry, and intact last week as advised. This site has increased drainage now and adjacent skin irritation and a mild odor. Her left foot ulcer site has returned. It is also noted that she completed all hyperbaric oxygen therapy chamber sessions. It is also noted she has been without electricity for about a week and it has been hot and humid. Progress of Wound: worse bilateral Objective Data Objective Data Vital Signs: Vital Signs Temp Pulse Resp BP 98.3 F 93 18 150/74 H 03/05/22 10:54 03/05/22 10:54 03/05/22 10:54 03/05/22 10:54 Lab / Micro Data Micro: Microbiology 02/26/22 11:30 Wound Abcess - Right Foot Gram Stain - Final 02/26/22 11:30 Wound Abcess - Right Foot Wound Culture - Final Enterobacter cloacae complex Streptococcus agalactiae (B) Corynebacterium striatum 02/26/22 11:30 Wound Abcess - Right Foot Anaerobic Culture - Final Anaerobic cocci Physical Exam Extremity Extremity Narrative: no cyanosis, no calf tenderness, diminished pulses muscle wasting noted. Skin Skin Narrative: no purulence, no erythema, no streaking, no odor bilateral. Adjacent skin is atrophic and thin. Plantar lateral right foot ulcer is 100% granular without deep probing; increased size, increased drainage, mild odor, peripheral maceration with faint adjacent erythema dorsal lateral (infection vs pressure from cast/weather humidity). periwound is healthy today. left foot ulcer is reopened with superficial granular base noted; increased size. On the left foot adjacent to the fifth toe there is a small skin crack/fissure that is now healed with full epithelialization. No deep probing or signs of infection noted. Her skin is very dry on her left foot Wound Narrative: Neuro Neuro Narrative: lack of normal epicritic sensation via light touch consistent with neuropathy Debridement Note Debridement Note Wound debrided: right lateral foot, left lateral foot Wound Grade/Stage: 1,3 Type of Debridement: Excisional debridement Anesthesia Used: 4% Lidocaine Solution Depth: in the subcutaneous layer Percentage of wound debrided: 100 Instrument Used: #15 blade Tissue Removed: fibrous, devitalized subcutaneous, biofilm, slough Severity: Fat Layer Exposed Amount of bleeding with debridement: Mild Bleeding Controlled with: Pressure Patient tolerated procedure: Patient tolerated procedure well Post-Debridement Measurements and Additional Note: Post-Debridement Measurements/Treatment - Nurse 1 - General Ulcer Assessment Start: 02/12/22 10:51 Freq: Status: Active Protocol: SOBIA Activity Type Activity Date Activity User E-sign Co-sign Detail Recorded Client Recorded Date Recorded By Document 02/12/22 10:51 RB [id number] 02/12/22 11:02 RB Document 02/19/22 11:22 RB [id number] 02/19/22 11:36 RB Document 02/26/22 11:00 DL [id number] 02/26/22 11:29 DL Document 03/05/22 10:54 RB [id number] 03/05/22 11:00 RB 02/12/22 02/19/22 02/26/22 10:51 11:22 11:00 - Today's Visit Information Type of service Follow-up Visit Follow-up Visit Follow-up Visit (Physician/WATER PROOFER (Physician/WATER PROOFER (Physician/WATER PROOFER ) ) ) Arrival Mode Ambulatory Ambulatory, Ambulatory Walker Transfer Assistance None None None Patient Identification Verified (Name & Yes Yes Yes ) Patient Requires Transmission-Based No No No Precautions Finger Stick Blood Sugar(mg/dl) (if 253 253 indicated): Blood Sugar Stated by Stated by Patient Patient Vital Signs Temperature (97.8 F-99.1 F) 97.2 F L 97 F L 98.3 F Temperature Source Temporal Temporal Temporal Pulse Rate (60-100) 90 91 101 H Pulse Location Monitor Monitor Monitor Respiratory Rate (12-18) 18 18 20 H Respiratory rate source Observation Observation Observation Blood Pressure (90/60-120/80) 154/58 H 168/74 H 152/77 H Blood Pressure Mean (mm Hg) 90 105 102 Source Monitor Monitor Monitor Position Sitting Semi-Fowlers Blood Pressure Location Left Arm Left Arm History Since Last Visit- (Skip if this is Patient's initial visit) Have you changed medications since your No No No last visit? Any new allergies or adverse reactions No No No Had a fall/change in ADL's that may No No No increase risk of falls Signs or symptoms of abuse and/or No No neglect since last visit Have you been in the hospital since your No No last visit? Has dressing in place as prescribed Yes Yes Yes Has compression in place as prescribed Yes No N/A Has offloadiing in place as prescribed Yes Yes Yes Experienced any changes in pain level or No No No management Left Footwear Surgical Shoe Surgical Shoe with pressure with pressure relief insole relief insole Right Footwear Surgical Shoe Total Contact with pressure Cast relief insole Pain Scale: 0-10 Numeric Is Patient Pain Free? Yes Yes Yes 03/05/22 10:54 WC - Today's Visit Information Type of service Follow-up Visit (Physician/WATER PROOFER ) Arrival Mode Ambulatory, Walker Transfer Assistance None Patient Identification Verified (Name & Yes ) Patient Requires Transmission-Based No Precautions Finger Stick Blood Sugar(mg/dl) (if indicated): Blood Sugar Vital Signs Temperature (97.8 F-99.1 F) 98.3 F Temperature Source Temporal Pulse Rate (60-100) 93 Pulse Location Monitor Respiratory Rate (12-18) 18 Respiratory rate source Observation Blood Pressure (90/60-120/80) 150/74 H Blood Pressure Mean (mm Hg) 99 Source Monitor Position Semi-Fowlers Blood Pressure Location Left Arm History Since Last Visit- (Skip if this is Patient's initial visit) Have you changed medications since your No last visit? Any new allergies or adverse reactions No Had a fall/change in ADL's that may No increase risk of falls Signs or symptoms of abuse and/or No neglect since last visit Have you been in the hospital since your No last visit? Has dressing in place as prescribed Yes Has compression in place as prescribed No Has offloadiing in place as prescribed No Experienced any changes in pain level or No management Left Footwear Total Contact Cast Right Footwear Pain Scale: 0-10 Numeric Is Patient Pain Free? Yes - Nurse 1 - General Ulcer Measurement Start: 02/12/22 10:51 Freq: Status: Active Protocol: Activity Type Activity Date Activity User E-sign Co-sign Detail Recorded Client Recorded Date Recorded By Document 02/12/22 10:51 NICOLE [id number] 02/12/22 11:02 RB Document 02/19/22 11:22 RB [id number] 02/19/22 11:36 RB Document 02/26/22 11:00 DL [id number] 02/26/22 11:29 DL Document 03/05/22 10:54 RB [id number] 03/05/22 11:00 RB 02/12/22 02/19/22 02/26/22 10:51 11:22 11:00 Wound Center Nurse 1 11-left upper foot/plantar -Combined with other wound No -Current Size (cm) - Length 0.1 0.8 -Current Size (cm) - Width 0.1 1.2 -Current Size (cm) - Depth 0.1 0.5 -Total Square Cm 0.01 0.96 -Photo Taken Yes -Tunneling No -Undermining/Tunneling No -Maximum Distance #2 (cm) 0.2 -Circular Undermining No Yes -Change in Wound Grade/Stage No -Exudate Amt Small Large -Exudate Type Serosanguineous Serosanguineous -Wound Margin Distinct, Thickened Outline Attached -Granulation Amt Large (67-100%) Large (67-100%) -Granulation Quality Tsaile Red -Slough/Fibrin Yes -Necrosis Amt Small (1-33%) Small (1-33%) -Necrotic Tissue Type Adherent Slough Adherent Slough -Structure Exposed N/A N/A -Texture (Toyin-wound Skin Appearance) Assessed,Callus Localized Edema ,Scarring -Moisture (Toyin-wound Skin Appearance) Assessed, Maceration Maceration -Color (Toyin-wound Skin Appearance) Assessed No Abnormality -Temperature (Toyin-wound Skin No Abnormality No Abnormality Appearance) (Pt Warm) (Pt Warm) -Tenderness on Palpation (Toyin-wound No No Skin Appearance) -Ulcer Cleansing Wound Cleanser Soap and Water -Foul Odor after Cleansing No No -Anesthetic Used 5% Lidocaine 5% Lidocaine Gel Gel 10. L plantar -Combined with other wound No No -Current Size (cm) - Length 0.4 0.6 2 -Current Size (cm) - Width 0.4 0.5 1.4 -Current Size (cm) - Depth 0.2 0.1 0.5 -Total Square Cm 0.16 0.30 2.8 -Photo Taken Yes Yes -Tunneling No No -Undermining/Tunneling No No -Undermining/Tunneling Starts (O'clock 12 ) -Undermining/Tunneling Ends (O'clock) 4 -Maximum Distance (cm) 0.4 -Circular Undermining No No -Exudate Amt Medium Medium Large -Exudate Type Serosanguineous Serosanguineous Serosanguineous -Wound Margin Distinct, Distinct, Thickened Outline Outline Attached Attached -Granulation Amt Medium (34-66%) Medium (34-66%) Large (67-100%) -Granulation Quality Tsaile Tsaile Red -Slough/Fibrin Yes Yes -Necrosis Amt Small (1-33%) Small (1-33%) Small (1-33%) -Necrotic Tissue Type Adherent Slough Adherent Slough Adherent Slough -Structure Exposed N/A N/A N/A -Texture (Toyin-wound Skin Appearance) Callus Assessed,Callus Localized Edema ,Scarring -Moisture (Toyin-wound Skin Appearance) Assessed Assessed Maceration -Color (Toyin-wound Skin Appearance) Not Assessed Assessed No Abnormality -Temperature (Toyin-wound Skin No Abnormality No Abnormality No Abnormality Appearance) (Pt Warm) (Pt Warm) (Pt Warm) -Tenderness on Palpation (Toyin-wound No No Skin Appearance) -Ulcer Cleansing Wound Cleanser Wound Cleanser Soap and Water -Foul Odor after Cleansing No No Yes -Anesthetic Used 5% Lidocaine 5% Lidocaine 5% Lidocaine Gel Gel Gel #5- R PLANTAR FOOT -Combined with other wound No No -Current Size (cm) - Length 1.4 1.8 -Current Size (cm) - Width 1.3 1.4 -Current Size (cm) - Depth 0.6 0.5 -Total Square Cm 1.82 2.52 -Photo Taken Yes Yes -Tunneling No No -Undermining/Tunneling Yes No -Undermining/Tunneling Starts (O'clock 10 ) -Undermining/Tunneling Ends (O'clock) 12 -Maximum Distance (cm) 0.4 -Undermining/Tunneling Starts #2 (O' 9 clock) -Undermining/Tunneling Ends #2 (O' 3 clock) -Maximum Distance #2 (cm) 0.4 -Circular Undermining No -Exudate Amt Medium Medium -Exudate Type Serosanguineous Serosanguineous -Wound Margin Distinct, Distinct, Outline Outline Attached Attached -Granulation Amt Medium (34-66%) Medium (34-66%) -Granulation Quality Tsaile Tsaile -Slough/Fibrin Yes Yes -Necrosis Amt Small (1-33%) Medium (34-66%) -Necrotic Tissue Type Adherent Slough Adherent Slough -Structure Exposed N/A N/A -Texture (Toyin-wound Skin Appearance) Assessed,Callus Assessed,Callus -Moisture (Toyin-wound Skin Appearance) Assessed Assessed, Maceration -Color (Toyin-wound Skin Appearance) Assessed Assessed -Temperature (Toyin-wound Skin No Abnormality No Abnormality Appearance) (Pt Warm) (Pt Warm) -Tenderness on Palpation (Toyin-wound No No Skin Appearance) -Ulcer Cleansing Wound Cleanser Wound Cleanser -Foul Odor after Cleansing No No -Anesthetic Used 5% Lidocaine 5% Lidocaine Gel Gel 03/05/22 10:54 Wound Center Nurse 1 11-left upper foot/plantar -Combined with other wound -Current Size (cm) - Length -Current Size (cm) - Width -Current Size (cm) - Depth -Total Square Cm -Photo Taken -Tunneling -Undermining/Tunneling -Maximum Distance #2 (cm) -Circular Undermining -Change in Wound Grade/Stage -Exudate Amt -Exudate Type -Wound Margin -Granulation Amt -Granulation Quality -Slough/Fibrin -Necrosis Amt -Necrotic Tissue Type -Structure Exposed -Texture (Toyin-wound Skin Appearance) -Moisture (Toyin-wound Skin Appearance) -Color (Toyin-wound Skin Appearance) -Temperature (Toyin-wound Skin Appearance) -Tenderness on Palpation (Toyin-wound Skin Appearance) -Ulcer Cleansing -Foul Odor after Cleansing -Anesthetic Used 10. L plantar -Combined with other wound No -Current Size (cm) - Length 1.3 -Current Size (cm) - Width 1.4 -Current Size (cm) - Depth 0.2 -Total Square Cm 1.82 -Photo Taken -Tunneling No -Undermining/Tunneling No -Undermining/Tunneling Starts (O'clock ) -Undermining/Tunneling Ends (O'clock) -Maximum Distance (cm) -Circular Undermining No -Exudate Amt Medium -Exudate Type Serosanguineous -Wound Margin Thickened -Granulation Amt Medium (34-66%) -Granulation Quality Tsaile -Slough/Fibrin Yes -Necrosis Amt Small (1-33%) -Necrotic Tissue Type Adherent Slough -Structure Exposed N/A -Texture (Toyin-wound Skin Appearance) Assessed,Callus -Moisture (Toyin-wound Skin Appearance) Assessed, Maceration -Color (Toyin-wound Skin Appearance) Assessed -Temperature (Toyin-wound Skin No Abnormality Appearance) (Pt Warm) -Tenderness on Palpation (Toyin-wound Skin Appearance) -Ulcer Cleansing Wound Cleanser -Foul Odor after Cleansing No -Anesthetic Used 4% Lidocaine Solution #5- R PLANTAR FOOT -Combined with other wound No -Current Size (cm) - Length 2.3 -Current Size (cm) - Width 1.5 -Current Size (cm) - Depth 0.4 -Total Square Cm 3.45 -Photo Taken -Tunneling No -Undermining/Tunneling Yes -Undermining/Tunneling Starts (O'clock 11 ) -Undermining/Tunneling Ends (O'clock) 1 -Maximum Distance (cm) 0.4 -Undermining/Tunneling Starts #2 (O' clock) -Undermining/Tunneling Ends #2 (O' clock) -Maximum Distance #2 (cm) -Circular Undermining No -Exudate Amt Large -Exudate Type Serosanguineous -Wound Margin Thickened -Granulation Amt Medium (34-66%) -Granulation Quality Tsaile -Slough/Fibrin Yes -Necrosis Amt Medium (34-66%) -Necrotic Tissue Type Adherent Slough -Structure Exposed N/A -Texture (Toyin-wound Skin Appearance) Assessed,Callus -Moisture (Toyin-wound Skin Appearance) Assessed -Color (Toyin-wound Skin Appearance) Assessed -Temperature (Toyin-wound Skin No Abnormality Appearance) (Pt Warm) -Tenderness on Palpation (Toyin-wound No Skin Appearance) -Ulcer Cleansing Wound Cleanser -Foul Odor after Cleansing No -Anesthetic Used 4% Lidocaine Solution WC - Nurse 2 - General Ulcer CM Notes Start: 02/12/22 10:51 Freq: Status: Active Protocol: Activity Type Activity Date Activity User E-sign Co-sign Detail Recorded Client Recorded Date Recorded By Document 02/12/22 11:15 ALYSSA [id number] 02/12/22 11:19 JF Document 02/19/22 11:47 RB [id number] 02/19/22 11:55 RB Document 02/26/22 11:35 DL [id number] 02/26/22 11:38 DL Edit Result 02/26/22 11:35 DL (1) [id number] 02/27/22 06:52 PL Document 03/05/22 11:35 PL [id number] 03/05/22 11:37 PL Edit Result 03/05/22 11:35 PL (2) [id number] 03/05/22 11:37 PL (1) 11-left upper foot/plantar - Type of Offloading Total Contact Cast => (TCC) - Left ($) => #5- R PLANTAR FOOT - Debridement - Subq, 1st 20sq cm Yes => No (2) 10. L plantar - Type of Offloading => Total Contact Cast => (TCC) - Right ($) 02/12/22 02/19/22 02/26/22 11:15 11:47 11:35 Wound Center Nurse 2 11-left upper foot/plantar -Time 11:19 11:50 11:35 -Correct Patient Yes Yes No -Correct Side, Site, Position Yes Yes No -Correct Procedure Yes Yes No -Procedure Performed Yes Yes No -Type of Procedure Debridement Debridement -Clinical Debridement Subcutaneous Subcutaneous -Tissue Removed Subcutaneous Subcutaneous -Post Debridement (cm) - Length 0.3 0.2 0 -Post Debridement (cm) - Width 0.5 0.1 0 -Post Debridement (cm) - Depth 0.1 0.1 0 -Total Square (Post) (cm) 0.15 0.02 0 -Area of Debridement (cm) - Length 0.3 0.2 0 -Area of Debridement (cm) - Width 0.5 0.1 0 -Total Square (Area) (cm) 0.15 0.02 0 -Tunneling No No No -Undermining/Tunneling No No No -Circular Undermining No No No -Wound/Ulcer Outcome Not Healed Not Healed Healed- Epithelialized -Ulcer Cleansing Rinsed/ Rinsed/ Rinsed/ Irrigated with Irrigated with Irrigated with Saline Saline Saline -Foul Odor after Cleansing No No No -Bioengineered Tissue No No No -Bleeding Controlled with Pressure Pressure Pressure -Treatment Response Procedure Procedure Procedure Tolerated Well Tolerated Well Tolerated Well -Offloading Yes Yes Yes -Type of Offloading Surgical Shoe Surgical Shoe -Debridement - Subq, 1st 20sq cm No Yes No 10. L plantar -Time 11:15 11:50 11:37 -Correct Patient Yes Yes Yes -Correct Side, Site, Position Yes Yes Yes -Correct Procedure Yes Yes Yes -Procedure Performed Yes Yes Yes -Type of Procedure Debridement Debridement Debridement -Clinical Debridement Subcutaneous Subcutaneous Subcutaneous -Tissue Removed Subcutaneous Subcutaneous Subcutaneous -Post Debridement (cm) - Length 0.5 0.6 0.8 -Post Debridement (cm) - Width 0.4 0.6 1.3 -Post Debridement (cm) - Depth 0.2 0.1 0.5 -Total Square (Post) (cm) 0.20 0.36 1.04 -Area of Debridement (cm) - Length 0.5 0.6 0.8 -Area of Debridement (cm) - Width 0.4 0.6 1.3 -Total Square (Area) (cm) 0.20 0.36 1.04 -Tunneling No No No -Undermining/Tunneling No No No -Circular Undermining No No No -Wound/Ulcer Outcome Not Healed Not Healed Not Healed -Ulcer Cleansing Rinsed/ Rinsed/ Rinsed/ Irrigated with Irrigated with Irrigated with Saline Saline Saline -Foul Odor after Cleansing No No No -Bioengineered Tissue No No No -Bleeding Controlled with Pressure Pressure Pressure -Treatment Response Procedure Procedure Procedure Tolerated Well Tolerated Well Tolerated Well -Offloading Yes Yes Yes -Type of Offloading Surgical Shoe Surgical Shoe Total Contact Cast (TCC) - Left ($) -Debridement - Subq, 1st 20sq cm Yes No Yes #5- R PLANTAR FOOT -Time 11:16 11:51 11:37 -Correct Patient Yes Yes Yes -Correct Side, Site, Position Yes Yes Yes -Correct Procedure Yes Yes Yes -Procedure Performed Yes Yes Yes -Type of Procedure Debridement Debridement Debridement -Clinical Debridement Subcutaneous Subcutaneous Subcutaneous -Tissue Removed Subcutaneous Subcutaneous Subcutaneous -Post Debridement (cm) - Length 1.5 1.8 2 -Post Debridement (cm) - Width 1.4 1.5 1.5 -Post Debridement (cm) - Depth 0.6 0.5 0.5 -Total Square (Post) (cm) 2.10 2.70 3.0 -Area of Debridement (cm) - Length 1.5 1.8 2.0 -Area of Debridement (cm) - Width 1.4 1.5 1.5 -Total Square (Area) (cm) 2.10 2.70 3.00 -Tunneling No No No -Undermining/Tunneling No No No -Circular Undermining No No No -Wound/Ulcer Outcome Not Healed Not Healed Not Healed -Ulcer Cleansing Rinsed/ Rinsed/ Rinsed/ Irrigated with Irrigated with Irrigated with Saline Saline Saline -Foul Odor after Cleansing No No No -Bioengineered Tissue Yes Yes No -Type of Bioengineered Tissue Epifix 18mm Epifix 18mm Disc Disc -Expiration Date 11/05/26 11/05/26 -Product Lot Number [id number] -Percent Used 100 100 -Lot number of Saline Used [id number] -Bleeding Controlled with Pressure Pressure Pressure -Treatment Response Procedure Procedure Procedure Tolerated Well Tolerated Well Tolerated Well -Offloading Yes Yes Yes -Type of Offloading Total Contact Total Contact Surgical Shoe Cast (TCC) - Cast (TCC) - Right ($) Right ($) -Debridement - Subq, 1st 20sq cm No No No -Apply Skin Sub - 1st 25 sq cm - Feet 1 1 -Epifix 18mm Disc 3 3 Pain Scale: 0-10 Numeric Is Patient Pain Free? Yes Yes Yes 03/05/22 11:35 Wound Center Nurse 2 11-left upper foot/plantar -Time -Correct Patient -Correct Side, Site, Position -Correct Procedure -Procedure Performed -Type of Procedure -Clinical Debridement -Tissue Removed -Post Debridement (cm) - Length -Post Debridement (cm) - Width -Post Debridement (cm) - Depth -Total Square (Post) (cm) -Area of Debridement (cm) - Length -Area of Debridement (cm) - Width -Total Square (Area) (cm) -Tunneling -Undermining/Tunneling -Circular Undermining -Wound/Ulcer Outcome -Ulcer Cleansing -Foul Odor after Cleansing -Bioengineered Tissue -Bleeding Controlled with -Treatment Response -Offloading -Type of Offloading -Debridement - Subq, 1st 20sq cm 10. L plantar -Time 11:05 -Correct Patient Yes -Correct Side, Site, Position Yes -Correct Procedure Yes -Procedure Performed Yes -Type of Procedure Debridement -Clinical Debridement Subcutaneous -Tissue Removed Subcutaneous -Post Debridement (cm) - Length 1.3 -Post Debridement (cm) - Width 1.4 -Post Debridement (cm) - Depth 0.2 -Total Square (Post) (cm) 1.82 -Area of Debridement (cm) - Length 1.3 -Area of Debridement (cm) - Width 1.4 -Total Square (Area) (cm) 1.82 -Tunneling No -Undermining/Tunneling No -Circular Undermining No -Wound/Ulcer Outcome Not Healed -Ulcer Cleansing Rinsed/ Irrigated with Saline -Foul Odor after Cleansing No -Bioengineered Tissue No -Bleeding Controlled with Pressure -Treatment Response Procedure Tolerated Well -Offloading -Type of Offloading Total Contact Cast (TCC) - Right ($) -Debridement - Subq, 1st 20sq cm No #5- R PLANTAR FOOT -Time 11:05 -Correct Patient Yes -Correct Side, Site, Position Yes -Correct Procedure Yes -Procedure Performed Yes -Type of Procedure Debridement -Clinical Debridement Subcutaneous -Tissue Removed Subcutaneous -Post Debridement (cm) - Length 2.3 -Post Debridement (cm) - Width 1.5 -Post Debridement (cm) - Depth 0.4 -Total Square (Post) (cm) 3.45 -Area of Debridement (cm) - Length 2.3 -Area of Debridement (cm) - Width 1.5 -Total Square (Area) (cm) 3.45 -Tunneling No -Undermining/Tunneling No -Circular Undermining No -Wound/Ulcer Outcome Not Healed -Ulcer Cleansing Rinsed/ Irrigated with Saline -Foul Odor after Cleansing No -Bioengineered Tissue No -Type of Bioengineered Tissue -Expiration Date -Product Lot Number -Percent Used -Lot number of Saline Used -Bleeding Controlled with Pressure -Treatment Response Procedure Tolerated Well -Offloading -Type of Offloading -Debridement - Subq, 1st 20sq cm Yes -Apply Skin Sub - 1st 25 sq cm - Feet -Epifix 18mm Disc Pain Scale: 0-10 Numeric Is Patient Pain Free? Yes - Nurse 3 - General Ulcer D/C NN Start: 02/12/22 10:51 Freq: Status: Active Protocol: Activity Type Activity Date Activity User E-sign Co-sign Detail Recorded Client Recorded Date Recorded By Document 02/19/22 12:03 [facility] [id number] 02/19/22 12:07 [facility] Document 02/26/22 11:45 RB [id number] 02/26/22 11:47 RB Document 03/05/22 11:18 RB [id number] 03/05/22 11:19 RB Document 03/05/22 11:21 [facility] [id number] 03/05/22 11:23 [facility] 02/19/22 02/26/22 03/05/22 12:03 11:45 11:18 Wound Care Nurse 3 11-left upper foot/plantar -Other Dressing epifix; abd, drsg per rb rn -Primary Dressing Covered/Secured with Dry Gauze & Roll Gauze, Secured with Tape 10. L plantar -Ulcer Cleansing Rinsed/ Rinsed/ Irrigated with Irrigated with Saline Saline -Foul Odor after Cleansing -Primary Dressing Applied Promogran Aquacel AG 4x4 Kezia Matter -Other Dressing epifix; abd; primary layer abd drsg per rb rn of TCC -Primary Dressing Covered/Secured with Dry Gauze & Dry Gauze,Dry Roll Gauze, Gauze & Roll Secured with Gauze,Secured Tape with Tape -Other Covering -Aquacel AG 4x4 1 -Optilok 6.5x10 -Promogran Kezia Matter 1 #5- R PLANTAR FOOT -Ulcer Cleansing Rinsed/ Irrigated with Saline -Foul Odor after Cleansing -Primary Dressing Applied -Other Dressing optilock sample saline aquacel ag, ABD , tcc undercast moistened gauze , kerlix, jason per rb rn -Primary Dressing Covered/Secured with Dry Gauze,Dry Dry Gauze,Dry Gauze & Roll Gauze & Roll Gauze,Secured Gauze,Secured with Tape with Tape -Other Covering -Promogran Kezia Matter Left -Compression Wrap -Other Treatment Response Procedure Procedure Procedure Tolerated Well Tolerated Well Tolerated Well Pain Scale: 0-10 Numeric Is Patient Pain Free? Yes Yes Yes WC - Visit Discharge Discharge Condition Stable Stable Stable Ambulatory Status Ambulatory, Ambulatory, Wheelchair Walker Walker Transportation Private Auto Private Auto Private Auto Accompanied by sister Medication Reconcilliation completed & No No provided to patient/care provider Clinical Summary of Care Provided Yes Yes 03/05/22 11:21 Wound Care Nurse 3 11-left upper foot/plantar -Other Dressing -Primary Dressing Covered/Secured with 10. L plantar -Ulcer Cleansing Rinsed/ Irrigated with Saline -Foul Odor after Cleansing No -Primary Dressing Applied Optilok 6.5x10, Promogran Kezia Matter -Other Dressing secured w/ jason -Primary Dressing Covered/Secured with Dry Gauze & Roll Gauze -Other Covering drsg per dl air and water filler -Aquacel AG 4x4 -Optilok 6.5x10 1 -Promogran Kezia Matter 1 #5- R PLANTAR FOOT -Ulcer Cleansing Rinsed/ Irrigated with Saline -Foul Odor after Cleansing No -Primary Dressing Applied Promogran Kezia Matter -Other Dressing tcc undercast per dl air and water filler -Primary Dressing Covered/Secured with -Other Covering tcc kit superabsorber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
== END 2022-03-06 23:59 | disposition home or self-care (01) ==
LOC: WC 10:45
PROVIDERS: PCP Family Medicine; Visit Provider Podiatrist
DX: E11.621 Type 2 diabetes mellitus with foot ulcer (principal); E11.52 Type 2 diabetes mellitus with diabetic peripheral angiopathy with gangrene; L97.402 Non-pressure chronic ulcer of unspecified heel and midfoot with fat layer exposed; L97.502 Non-pressure chronic ulcer of other part of unspecified foot with fat layer exposed; L97.524 Non-pressure chronic ulcer of other part of left foot with necrosis of bone; L97.512 Non-pressure chronic ulcer of other part of right foot with fat layer exposed; E44.1 Mild protein-calorie malnutrition; M86.9 Osteomyelitis, unspecified; E11.59 Type 2 diabetes mellitus with other circulatory complications; E11.42 Type 2 diabetes mellitus with diabetic polyneuropathy; T31.11 Burns involving 10-19% of body surface with 10-19% third degree burns; I10 Essential (primary) hypertension; L03.115 Cellulitis of right lower limb; M54.16 Radiculopathy, lumbar region; M54.17 Radiculopathy, lumbosacral region; E78.5 Hyperlipidemia, unspecified; R60.0 Localized edema; T25.32 Burn of third degree of foot; Z85.828 Personal history of other malignant neoplasm of skin
CPT/HCPCS: 11042; 15275; 29445; 87070; 87075; 87077; 87186; 87205; 87640; Q4186

== ENCOUNTER 2022-04-03 08:30 | Outpatient (RCR) | payer MEDICARE, SELFPAY ==
[2022-03-07 00:31] VITALS: BP 150/74; PULSE 93; RESP 18; TEMP 36.8
[2022-03-12 11:14] VITALS: BP 163/83; PULSE 100; RESP 18; TEMP 36.4
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
[2022-03-19 10:54] VITALS: BP 156/66; PULSE 92; TEMP 36.2
--- NOTE | 2022-03-19 11:34 | WC ---
darco shoes to bilateral feet,larissa gina
[2022-03-19 12:35] LABS: Bedside Glucose 268 mg/dL (74-106)
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
[2022-03-20 08:45] LABS: Bedside Glucose 226 mg/dL (74-106)
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
[2022-03-20 10:48] VITALS: BP 148/70; BP 167/72; PULSE 77; PULSE 83; RESP 16; RESP 17; TEMP 36.7
[2022-03-20 10:55] LABS: Bedside Glucose 246 mg/dL (74-106)
[2022-03-21 09:06] VITALS: BP 150/75; BP 160/72; PULSE 78; PULSE 82; RESP 15; RESP 16; TEMP 36.6
[2022-03-21 09:15] LABS: Bedside Glucose 223 mg/dL (74-106)
[2022-03-21 10:50] LABS: Bedside Glucose 259 mg/dL (74-106)
--- NOTE | 2022-03-21 12:58 | HBO.PN.PCM_ITS ---
History of Present Illness Date of Service: 03/21/22 Chief Complaint: Right foot ulcer follow-up History of Wound: This is a 66-year-old female who is a known diabetic. She also suffers from diabetic neuropathy. She continues hyperbaric oxygen therapy and reports the sessions are going well. She denies fever, chill, nausea, vomiting, purulence or odor. She also kept her right lower extremity total contact cast clean, dry, and intact last week as advised. Her left foot ulcer site is also still present. It is also noted that she completed all hyperbaric oxygen therapy chamber sessions and is trying to get rescheduled because the left foot ulcer has returned and this has underlying chronic osteomyelitis that was previously treated with antibiotics and hyperbaric therapies. She is doing well taking Augmentin the last week. She does have some loose stools for 1 day however denies that this is diarrhea. She denies redness, streaking or odor to either foot. She stopped taking nutritional supplementation reports she takes a multivitamin and she also has some Glucerna at home. Progress of Wound: Progress: Today is the 2nd treatment of hyperbaric oxygen therapy. The patient is scheduled for 20 treatments total. She has ear tubes in place from previous HBO treatment. Tolerance of hyperbaric oxygen therapy: Hyperbaric oxygen treatment was provided as per the facility's protocol at 2.0 LUCINDA in 100% oxygen for 90 minutes without air breaks. The patient tolerated hyperbaric oxygen well, without complications or complaints. Upon emergence of the hyperbaric chamber, the patient's vital signs remained stable. Objective Data Objective Data Vital Signs: Vital Signs Temp Pulse Resp BP 97.8 F 82 16 150/75 H 03/21/22 09:06 03/21/22 09:06 03/21/22 09:06 03/21/22 09:06 Lab / Micro Data Labs: Laboratory Results - last 24 hr 03/21/22 08:23: POC Glucose 223 H 03/21/22 10:33: POC Glucose 259 H Exam Physical Exam Const alert, oriented x3 and no apparent distress HEENT HEENT Narrative: tympanostomy tubes patent and in place b/l Psych mental status grossly normal, thought process normal, cooperative, affect normal and speech normal Nursing Assessment and Debridement Post-Debridement Measurements and Additional Note: Post-Debridement Measurements/Treatment WC - Nurse 1 - General Ulcer Assessment Start: 03/12/22 11:14 Freq: Status: Active Protocol: JAY.LOWEXT Activity Type Activity Date Activity User E-sign Co-sign Detail Recorded Client Recorded Date Recorded By Document 03/19/22 10:54 ASHLI [id number] 03/19/22 10:58 ASHLI 03/19/22 10:54 - Today's Visit Information 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 Any new allergies or adverse reactions No Had a fall/change in ADL's that may No increase risk of falls Signs or symptoms of abuse and/or No neglect since last visit Have you been in the hospital since your No last visit? Has dressing in place as prescribed Yes Has compression in place as prescribed N/A Has offloadiing in place as prescribed N/A Experienced any changes in pain level or No management Left Footwear Regular Shoe Right Footwear Regular Shoe Pain Scale: 0-10 Numeric Is Patient Pain Free? Yes - Nurse 1 - General Ulcer Measurement Start: 03/12/22 11:14 Freq: Status: Active Protocol: Activity Type Activity Date Activity User E-sign Co-sign Detail Recorded Client Recorded Date Recorded By Document 03/19/22 10:54 ASHLI [id number] 03/19/22 10:58 SD 03/19/22 10:54 Wound Center Nurse 1 10. L plantar -Combined with other wound No -Current Size (cm) - Length 2 -Current Size (cm) - Width 2 -Current Size (cm) - Depth 0.2 -Total Square Cm 4 -Photo Taken No -Tunneling No -Undermining/Tunneling No -Circular Undermining No -Change in Wound Grade/Stage No -Exudate Amt Large -Exudate Type Yellow/Green -Wound Margin Distinct, Outline Attached -Granulation Amt Medium (34-66%) -Granulation Quality [place] -Slough/Fibrin Yes -Necrosis Amt Large (67-100%) -Necrotic Tissue Type Adherent Slough -Structure Exposed N/A -Texture ([place]-wound Skin Appearance) Assessed,Callus -Moisture ([place]-wound Skin Appearance) Assessed, Maceration -Color ([place]-wound Skin Appearance) No Abnormality, Assessed -Temperature ([place]-wound Skin No Abnormality Appearance) (Pt Warm) -Tenderness on Palpation ([place]-wound No Skin Appearance) -Ulcer Cleansing Rinsed/ Irrigated with Saline -Foul Odor after Cleansing No -Anesthetic Used 5% Lidocaine Gel #5- R PLANTAR FOOT -Combined with other wound No -Current Size (cm) - Length 2 -Current Size (cm) - Width 1.5 -Current Size (cm) - Depth 0.2 -Total Square Cm 3.0 -Photo Taken No -Epithelialization None Present -Tunneling No -Undermining/Tunneling No -Circular Undermining No -Change in Wound Grade/Stage No -Exudate Amt Large -Exudate Type Yellow/Green -Wound Margin Distinct, Outline Attached -Granulation Amt Small (1-33%) -Granulation Quality [place] -Slough/Fibrin Yes -Necrosis Amt Large (67-100%) -Necrotic Tissue Type Adherent Slough -Structure Exposed N/A -Texture ([place]-wound Skin Appearance) Assessed,Callus -Moisture ([place]-wound Skin Appearance) No Abnormality, Assessed -Color ([place]-wound Skin Appearance) No Abnormality, Assessed -Temperature ([place]-wound Skin No Abnormality Appearance) (Pt Warm) -Tenderness on Palpation ([place]-wound No Skin Appearance) -Ulcer Cleansing Rinsed/ Irrigated with Saline -Foul Odor after Cleansing No -Anesthetic Used 5% Lidocaine Gel WC - Nurse 2 - General Ulcer CM Notes Start: 03/12/22 11:14 Freq: Status: Active Protocol: Activity Type Activity Date Activity User E-sign Co-sign Detail Recorded Client Recorded Date Recorded By Document 03/19/22 11:11 MW [id number] 03/19/22 11:12 MW Document 03/19/22 11:16 [id number] 03/19/22 11:20 03/19/22 03/19/22 11:11 11:16 Wound Center Nurse 2 10. L plantar -Time 11:16 -Correct Patient Yes -Correct Side, Site, Position Yes -Correct Procedure Yes -Procedure Performed Yes -Type of Procedure Debridement -Clinical Debridement Subcutaneous -Tissue Removed Subcutaneous -Post Debridement (cm) - Length 2.1 -Post Debridement (cm) - Width 2.1 -Post Debridement (cm) - Depth 0.3 -Total Square (Post) (cm) 4.41 -Area of Debridement (cm) - Length 2.1 -Area of Debridement (cm) - Width 2.1 -Total Square (Area) (cm) 4.41 -Tunneling No -Undermining/Tunneling No -Circular Undermining No -Wound/Ulcer Outcome Not Healed -Ulcer Cleansing Rinsed/ Irrigated with Saline -Foul Odor after Cleansing No -Bioengineered Tissue No -Bleeding Controlled with Pressure -Treatment Response Procedure Tolerated Well -Offloading No -Debridement - Subq, 1st 20sq cm Yes #5- R PLANTAR FOOT -Time 11:16 -Correct Patient Yes -Correct Side, Site, Position Yes -Correct Procedure Yes -Procedure Performed Yes -Type of Procedure Debridement -Clinical Debridement Subcutaneous -Tissue Removed Subcutaneous -Post Debridement (cm) - Length 2.2 -Post Debridement (cm) - Width 1.5 -Post Debridement (cm) - Depth 0.3 -Total Square (Post) (cm) 3.30 -Area of Debridement (cm) - Length 2.2 -Area of Debridement (cm) - Width 1.5 -Total Square (Area) (cm) 3.30 -Tunneling No -Undermining/Tunneling No -Circular Undermining No -Wound/Ulcer Outcome Not Healed -Ulcer Cleansing Rinsed/ Irrigated with Saline -Foul Odor after Cleansing No -Bioengineered Tissue No -Bleeding Controlled with Pressure -Treatment Response Procedure Tolerated Well -Offloading No -Debridement - Subq, 1st 20sq cm No Pain Scale: 0-10 Numeric Is Patient Pain Free? Yes Yes WC - Nurse 3 - General Ulcer D/C NN Start: 03/12/22 11:14 Freq: Status: Active Protocol: Activity Type Activity Date Activity User E-sign Co-sign Detail Recorded Client Recorded Date Recorded By Document 03/19/22 11:32 ML [id number] 03/19/22 11:35 ML 03/19/22 11:32 Wound Care Nurse 3 10. L plantar -Ulcer Cleansing Rinsed/ Irrigated with Saline -Primary Dressing Applied Aquacel AG 4x4 -Primary Dressing Covered/Secured with Dry Gauze & Roll Gauze, Secured with Tape -Aquacel AG 4x4 1 #5- R PLANTAR FOOT -Ulcer Cleansing Rinsed/ Irrigated with Saline -Primary Dressing Applied Aquacel AG 4x4 -Primary Dressing Covered/Secured with Dry Gauze & Roll Gauze, Secured with Tape -Aquacel AG 4x4 0 Pain Scale: 0-10 Numeric Is Patient Pain Free? Yes WC - Visit Discharge Discharge Condition Stable Ambulatory Status Walker Medication Reconcilliation completed & No provided to patient/care provider Clinical Summary of Care Provided Yes 03/19/22 11:34 Wound Center by Sujatha Weiss shoes to bilateral feet,larissa gina Initialized on 03/19/22 11:34 - END OF NOTE Assessment/Plan Assessment/Plan (1) Diabetic foot ulcer associated with diabetes mellitus due to underlying condition: CODE(S): E08.621 - Diabetes mellitus due to underlying condition with foot ulcer; L97.509 - Non-pressure chronic ulcer of other part of unspecified foot with unspecified severity QUALIFIERS: Diabetic foot ulcer location: midfoot Laterality: unspecified laterality Non-pressure ulcer stage: with necrosis of bone Qualified Code(s): E08.621 - Diabetes mellitus due to underlying condition with foot ulcer; L97.404 - Non-pressure chronic ulcer of unspecified heel and midfoot with necrosis of bone (2) Type 2 diabetes mellitus with peripheral neuropathy: CODE(S): E11.42 - Type 2 diabetes mellitus with diabetic polyneuropathy (3) Type 2 diabetes mellitus: CODE(S): E11.9 - Type 2 diabetes mellitus without complications QUALIFIERS: Diabetes mellitus shelter insulin use: without shelter use Diabetes mellitus complication status: with circulatory complication Diabetes mellitus complication detail: with peripheral angiopathy with gangrene Qualified Code(s): E11.52 - Type 2 diabetes mellitus with diabetic peripheral angiopathy with gangrene (4) Chronic ulcer of left foot with necrosis of bone: CODE(S): L97.524 - Non-pressure chronic ulcer of other part of left foot with necrosis of bone (5) Foot osteomyelitis, left: CODE(S): M86.9 - Osteomyelitis, unspecified QUALIFIERS: Osteomyelitis type: acute hematogenous Qualified Code(s): M86.072 - Acute hematogenous osteomyelitis, left ankle and foot PLAN: Plan The patient appears to be tolerating hyperbaric oxygen therapy well, which will be continued as per their medical treatment plan.
[2022-03-24 08:40] LABS: Bedside Glucose 228 mg/dL (74-106)
[2022-03-24 09:05] VITALS: BP 167/75; BP 188/85; PULSE 96; PULSE 98; RESP 16; TEMP 36.9
[2022-03-24 10:51] LABS: Bedside Glucose 266 mg/dL (74-106)
--- NOTE | 2022-03-24 12:30 | HBO.PN.PCM_ITS ---
History of Present Illness Date of Service: 03/24/22 Chief Complaint: Right and left foot ulcer follow-up History of Wound: This is a 66-year-old female who is a known diabetic. She also suffers from diabetic neuropathy. She continues hyperbaric oxygen therapy and reports the sessions are going well for treatment of left foot osteomyelitis. She denies fever, chill, nausea, vomiting, purulence or odor. She is seen for ulcers of both feet and reports increased drainage. She denies redness, streaking or odor to either foot. she has not been able to fully offload as advised and does not like the nutritional supplements. Her left foot is worse. Progress of Wound: Today is the 3rd treatment of hyperbaric oxygen therapy.? The patient is scheduled for 20 treatments total. She has ear tubes in place from previous HBO treatment. Tolerance of hyperbaric oxygen therapy: Hyperbaric oxygen treatment was provided as per the facility's protocol at 2.0 LUCINDA in 100% oxygen for 90 minutes without air breaks.? The patient tolerated hyperbaric oxygen well, without complications or complaints. Upon emergence of the hyperbaric chamber, the patient's vital signs remained stable. Objective Data Objective Data Vital Signs: Vital Signs Temp Pulse Resp BP 98.5 F 98 16 167/75 H 03/24/22 09:05 03/24/22 09:05 03/24/22 09:05 03/24/22 09:05 Lab / Micro Data Labs: Laboratory Results - last 24 hr 03/24/22 08:23: POC Glucose 228 H 03/24/22 10:31: POC Glucose 266 H Exam Physical Exam Const alert, oriented x3 and no apparent distress General Appearance: cooperative HEENT normocephalic HEENT Narrative: Tympanostomy tubes in place bilaterally. Eyes PERRL Resp normal respiratory effort and clear to auscultation bilaterally Effort and Inspection: able to speak in complete sentences Cardio regular rate and regular rhythm Psych affect normal Charges/Coding Wound Center CF Procedures HBO Supervision: [id number] Hyperbaric Oxygen; supervision Assessment/Plan Assessment/Plan (1) Diabetic foot ulcer associated with diabetes mellitus due to underlying condition: CODE(S): E08.621 - Diabetes mellitus due to underlying condition with foot ulcer; L97.509 - Non-pressure chronic ulcer of other part of unspecified foot with unspecified severity QUALIFIERS: Diabetic foot ulcer location: midfoot Laterality: unspecified laterality Non-pressure ulcer stage: with necrosis of bone Qualifi ed Code(s): E08.621 - Diabetes mellitus due to underlying condition with foot ulcer; L97.404 - Non-pressure chronic ulcer of unspecified heel and midfoot with necrosis of bone (2) Type 2 diabetes mellitus with peripheral neuropathy: CODE(S): E11.42 - Type 2 diabetes mellitus with diabetic polyneuropathy (3) Type 2 diabetes mellitus: CODE(S): E11.9 - Type 2 diabetes mellitus without complications QUALIFIERS: Diabetes mellitus termination clerk insulin use: without termination clerk use Diabetes mellitus complication status: with circulatory complication Diabetes mellitus complication detail: with peripheral angiopathy with gangrene Qualified Code(s): E11.52 - Type 2 diabetes mellitus with diabetic peripheral angiopathy with gangrene (4) Foot osteomyelitis, left: CODE(S): M86.9 - Osteomyelitis, unspecified QUALIFIERS: Osteomyelitis type: unspecified type Qualified Code(s): M86.9 - Osteomyelitis, unspecified (5) Chronic ulcer of left foot with necrosis of bone: CODE(S): L97.524 - Non-pressure chronic ulcer of other part of left foot with necrosis of bone PLAN: Plan The patient appears to be tolerating hyperbaric oxygen therapy well, which will be continued as per their medical treatment plan.
[2022-03-26 08:45] LABS: Bedside Glucose 217 mg/dL (74-106)
[2022-03-26 10:41] VITALS: BP 169/79; PULSE 81; RESP 18; TEMP 36.8
[2022-03-26 10:55] LABS: Bedside Glucose 219 mg/dL (74-106)
[2022-03-26 11:00] VITALS: BP 153/69; BP 169/79; PULSE 81; PULSE 83; RESP 17; TEMP 36.8
--- NOTE | 2022-03-26 11:36 | PCM.HBO.PN ---
History of Present Illness Date of Service: 03/26/22 Chief Complaint: Right and left foot ulcer follow-up History of Wound: This is a 66-year-old female who is a known diabetic. She also suffers from diabetic neuropathy. She continues hyperbaric oxygen therapy and reports the sessions are going well for treatment of left foot osteomyelitis. She denies fever, chill, nausea, vomiting, purulence or odor. She is seen for ulcers of both feet and reports increased drainage. She denies redness, streaking or odor to either foot. she has not been able to fully offload as advised and does not like the nutritional supplements. Her left foot is worse. Progress of Wound: Today is the 4th treatment of hyperbaric oxygen therapy.? The patient is scheduled for 20 treatments total. She has ear tubes in place from previous HBO treatment. Tolerance of hyperbaric oxygen therapy: Hyperbaric oxygen treatment was provided as per the facility's protocol at 2.0 LUCINDA in 100% oxygen for 90 minutes without air breaks.? The patient tolerated hyperbaric oxygen well, without complications or complaints. Upon emergence of the hyperbaric chamber, the patient's vital signs remained stable. Subjective Subjective Patient tolerated treatment well and will return tomorrow Objective Data Objective Data Vital Signs: Vital Signs Temp Pulse Resp BP 98.3 F 83 17 153/69 H 03/26/22 11:00 03/26/22 11:00 03/26/22 11:00 03/26/22 11:00 Lab / Micro Data Labs: Laboratory Results - last 24 hr 03/26/22 08:27: POC Glucose 217 H 03/26/22 10:34: POC Glucose 219 H Exam Physical Exam Const alert, oriented x3 and no apparent distress General Appearance: cooperative HEENT normocephalic HEENT Narrative: Tympanostomy tubes in place bilaterally. Eyes PERRL Resp normal respiratory effort and clear to auscultation bilaterally Effort and Inspection: able to speak in complete sentences Cardio regular rate and regular rhythm Psych affect normal Nursing Assessment and Debridement Post-Debridement Measurements and Additional Note: Post-Debridement Measurements/Treatment WC - Nurse 1 - General Ulcer Assessment Start: 03/12/22 11:14 Freq: Status: Active Protocol: WC.LOWEXT Activity Type Activity Date Activity User E-sign Co-sign Detail Recorded Client Recorded Date Recorded By Document 03/26/22 10:41 [id number] 03/26/22 11:01 03/26/22 10:41 - Today's Visit Information Type of service Follow-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 ) Arrival Mode Ambulatory Transfer Assistance None Patient Identification Verified (Name & Yes ) Patient Requires Transmission-Based No Precautions Finger Stick Blood Sugar(mg/dl) (if 219 indicated): Blood Sugar Done During this Visit Vital Signs Temperature (97.8 F-99.1 F) 98.3 F Temperature Source Temporal Pulse Rate (60-100) 81 Pulse Location Monitor Respiratory Rate (12-18) 18 Respiratory rate source Observation Blood Pressure (90/60-120/80) 169/79 H Blood Pressure Mean (mm Hg) 109 Source Monitor Position Sitting Blood Pressure Location Left Arm History Since Last Visit- (Skip if this is Patient's initial visit) Have you changed medications since your No last visit? Any new allergies or adverse reactions No Had a fall/change in ADL's that may No increase risk of falls Signs or symptoms of abuse and/or No neglect since last visit Have you been in the hospital since your No last visit? Has dressing in place as prescribed Yes Has compression in place as prescribed No Has offloadiing in place as prescribed Yes Experienced any changes in pain level or No management Left Footwear Surgical Shoe with pressure relief insole Right Footwear Surgical Shoe with pressure relief insole Pain Scale: 0-10 Numeric Is Patient Pain Free? Yes - Nurse 1 - General Ulcer Measurement Start: 03/12/22 11:14 Freq: Status: Active Protocol: Activity Type Activity Date Activity User E-sign Co-sign Detail Recorded Client Recorded Date Recorded By Document 03/26/22 10:41 [id number] 03/26/22 11:01 03/26/22 10:41 Wound Center Nurse 1 10. L plantar -Combined with other wound No -Current Size (cm) - Length 2 -Current Size (cm) - Width 2.2 -Current Size (cm) - Depth 0.4 -Total Square Cm 4.4 -Photo Taken Yes -Tunneling No -Undermining/Tunneling No -Circular Undermining No -Exudate Amt Large -Exudate Type Serosanguineous -Wound Margin Distinct, Outline Attached -Granulation Amt Medium (34-66%) -Granulation Quality [place] -Slough/Fibrin Yes -Necrosis Amt Small (1-33%) -Necrotic Tissue Type Adherent Slough -Structure Exposed N/A -Texture ([place]-wound Skin Appearance) Callus -Moisture ([place]-wound Skin Appearance) Assessed -Color ([place]-wound Skin Appearance) Assessed -Temperature ([place]-wound Skin No Abnormality Appearance) (Pt Warm) -Tenderness on Palpation ([place]-wound No Skin Appearance) -Ulcer Cleansing Wound Cleanser -Foul Odor after Cleansing No -Anesthetic Used 5% Lidocaine Gel #5- R PLANTAR FOOT -Combined with other wound No -Current Size (cm) - Length 2.1 -Current Size (cm) - Width 1.5 -Current Size (cm) - Depth 0.4 -Total Square Cm 3.15 -Photo Taken Yes -Tunneling No -Undermining/Tunneling No -Circular Undermining No -Exudate Amt Medium -Exudate Type Serosanguineous -Wound Margin Distinct, Outline Attached -Granulation Amt Medium (34-66%) -Granulation Quality [place] -Slough/Fibrin Yes -Necrosis Amt Small (1-33%) -Necrotic Tissue Type Adherent Slough -Structure Exposed N/A -Texture ([place]-wound Skin Appearance) Callus -Moisture ([place]-wound Skin Appearance) Assessed -Color ([place]-wound Skin Appearance) Assessed -Temperature ([place]-wound Skin No Abnormality Appearance) (Pt Warm) -Tenderness on Palpation ([place]-wound No Skin Appearance) -Ulcer Cleansing Wound Cleanser -Anesthetic Used 5% Lidocaine Gel Lower Limb Edema Present Yes Right Calf (cm) 33 Right Ankle (cm) 21.4 Left Calf (cm) 32 Left Ankle (cm) 21.8 Assessment/Plan Assessment/Plan (1) Diabetic foot ulcer associated with diabetes mellitus due to underlying condition: CODE(S): E08.621 - Diabetes mellitus due to underlying condition with foot ulcer; L97.509 - Non-pressure chronic ulcer of other part of unspecified foot with unspecified severity QUALIFIERS: Diabetic foot ulcer location: midfoot Laterality: unspecified laterality Non-pressure ulcer stage: with necrosis of bone Qualified Code(s): E08.621 - Diabetes mellitus due to underlying condition with foot ulcer; L97.404 - Non-pressure chronic ulcer of unspecified heel and midfoot with necrosis of bone (2) Type 2 diabetes mellitus with peripheral neuropathy: CODE(S): E11.42 - Type 2 diabetes mellitus with diabetic polyneuropathy (3) Type 2 diabetes mellitus: CODE(S): E11.9 - Type 2 diabetes mellitus without complications QUALIFIERS: Diabetes mellitus equipment operator intermodal yard insulin use: without equipment operator intermodal yard use Diabetes mellitus complication status: with circulatory complication Diabetes mellitus complication detail: with peripheral angiopathy with gangrene Qualified Code(s): E11.52 - Type 2 diabetes mellitus with diabetic peripheral angiopathy with gangrene (4) Foot osteomyelitis, left: CODE(S): M86.9 - Osteomyelitis, unspecified QUALIFIERS: Osteomyelitis type: unspecified type Qualified Code(s): M86.9 - Osteomyelitis, unspecified (5) Chronic ulcer of left foot with necrosis of bone: CODE(S): L97.524 - Non-pressure chronic ulcer of other part of left foot with necrosis of bone PLAN: Plan The patient appears to be tolerating hyperbaric oxygen therapy well, which will be continued as per their medical treatment plan.
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
[2022-03-28 08:50] LABS: Bedside Glucose 253 mg/dL (74-106)
[2022-03-28 10:56] VITALS: BP 155/65; BP 161/69; PULSE 80; PULSE 95; RESP 16; RESP 17; TEMP 36.3
[2022-03-28 11:01] LABS: Bedside Glucose 241 mg/dL (74-106)
--- NOTE | 2022-03-28 12:22 | HBO.PN.PCM_ITS ---
History of Present Illness Date of Service: 03/28/22 Chief Complaint: Right and left foot ulcer follow-up History of Wound: This is a 66-year-old female who is a known diabetic. She also suffers from diabetic neuropathy. She continues hyperbaric oxygen therapy and reports the sessions are going well for treatment of left foot osteomyelitis. She denies fever, chill, nausea, vomiting, purulence or odor. She is seen for ulcers of both feet and reports increased drainage. She denies redness, streaking or odor to either foot. she has not been able to fully offload as advised and does not like the nutritional supplements. She refuses wheelchair knee roller use and was offered prescriptions today. She is with her sister. Her sister recommended detention consideration the patient also refused this. Progress of Wound: improving Subjective Subjective Progress: Today is the 5th treatment of hyperbaric oxygen therapy. The patient is scheduled for 20 treatments total. Tolerance of hyperbaric oxygen therapy: Hyperbaric oxygen treatment was provided as per the facility's protocol at 2.0 LUCINDA in 100% oxygen for 90 minutes without air breaks. The patient tolerated hyperbaric oxygen well, without complications or complaints. Upon emergence of the hyperbaric chamber, the patient's vital signs remained stable. Objective Data Objective Data Vital Signs: Vital Signs Temp Pulse Resp BP 97.3 F L 95 17 161/69 H 03/28/22 10:56 03/28/22 10:56 03/28/22 10:56 03/28/22 10:56 Lab / Micro Data Labs: Laboratory Results - last 24 hr 03/28/22 08:29: POC Glucose 253 H 03/28/22 10:43: POC Glucose 241 H Exam Physical Exam Const alert, oriented x3 and no apparent distress Psych mental status grossly normal, thought process normal, cooperative, affect normal and speech normal Nursing Assessment and Debridement Post-Debridement Measurements and Additional Note: Post-Debridement Measurements/Treatment JAY - Nurse 1 - General Ulcer Assessment Start: 03/12/22 11:14 Freq: Status: Active Protocol: SOBIA Activity Type Activity Date Activity User E-sign Co-sign Detail Recorded Client Recorded Date Recorded By Document 03/26/22 10:41 NICOLE [id number] 03/26/22 11:01 NICOLE 03/26/22 10:41 - Today's Visit Information Type of service Follow-up Visit (Physician/[facility] [employer] ) Arrival Mode Ambulatory Transfer Assistance None Patient Identification Verified (Name & Yes ) Patient Requires Transmission-Based No Precautions Finger Stick Blood Sugar(mg/dl) (if 219 indicated): Blood Sugar Done During this Visit Vital Signs Temperature (97.8 F-99.1 F) 98.3 F Temperature Source Temporal Pulse Rate (60-100) 81 Pulse Location Monitor Respiratory Rate (12-18) 18 Respiratory rate source Observation Blood Pressure (90/60-120/80) 169/79 H Blood Pressure Mean (mm Hg) 109 Source Monitor Position Sitting Blood Pressure Location Left Arm History Since Last Visit- (Skip if this is Patient's initial visit) Have you changed medications since your No last visit? Any new allergies or adverse reactions No Had a fall/change in ADL's that may No increase risk of falls Signs or symptoms of abuse and/or No neglect since last visit Have you been in the hospital since your No last visit? Has dressing in place as prescribed Yes Has compression in place as prescribed No Has offloadiing in place as prescribed Yes Experienced any changes in pain level or No management Left Footwear Surgical Shoe with pressure relief insole Right Footwear Surgical Shoe with pressure relief insole Pain Scale: 0-10 Numeric Is Patient Pain Free? Yes WC - Nurse 1 - General Ulcer Measurement Start: 03/12/22 11:14 Freq: Status: Active Protocol: Activity Type Activity Date Activity User E-sign Co-sign Detail Recorded Client Recorded Date Recorded By Document 03/26/22 10:41 [id number] 03/26/22 11:01 03/26/22 10:41 Wound Center Nurse 1 10. L plantar -Combined with other wound No -Current Size (cm) - Length 2 -Current Size (cm) - Width 2.2 -Current Size (cm) - Depth 0.4 -Total Square Cm 4.4 -Photo Taken Yes -Tunneling No -Undermining/Tunneling No -Circular Undermining No -Exudate Amt Large -Exudate Type Serosanguineous -Wound Margin Distinct, Outline Attached -Granulation Amt Medium (34-66%) -Granulation Quality [place] -Slough/Fibrin Yes -Necrosis Amt Small (1-33%) -Necrotic Tissue Type Adherent Slough -Structure Exposed N/A -Texture ([place]-wound Skin Appearance) Callus -Moisture ([place]-wound Skin Appearance) Assessed -Color ([place]-wound Skin Appearance) Assessed -Temperature ([place]-wound Skin No Abnormality Appearance) (Pt Warm) -Tenderness on Palpation ([place]-wound No Skin Appearance) -Ulcer Cleansing Wound Cleanser -Foul Odor after Cleansing No -Anesthetic Used 5% Lidocaine Gel #5- R PLANTAR FOOT -Combined with other wound No -Current Size (cm) - Length 2.1 -Current Size (cm) - Width 1.5 -Current Size (cm) - Depth 0.4 -Total Square Cm 3.15 -Photo Taken Yes -Tunneling No -Undermining/Tunneling No -Circular Undermining No -Exudate Amt Medium -Exudate Type Serosanguineous -Wound Margin Distinct, Outline Attached -Granulation Amt Medium (34-66%) -Granulation Quality [place] -Slough/Fibrin Yes -Necrosis Amt Small (1-33%) -Necrotic Tissue Type Adherent Slough -Structure Exposed N/A -Texture ([place]-wound Skin Appearance) Callus -Moisture ([place]-wound Skin Appearance) Assessed -Color ([place]-wound Skin Appearance) Assessed -Temperature ([place]-wound Skin No Abnormality Appearance) (Pt Warm) -Tenderness on Palpation ([place]-wound No Skin Appearance) -Ulcer Cleansing Wound Cleanser -Anesthetic Used 5% Lidocaine Gel Lower Limb Edema Present Yes Right Calf (cm) 33 Right Ankle (cm) 21.4 Left Calf (cm) 32 Left Ankle (cm) 21.8 WC - Nurse 2 - General Ulcer CM Notes Start: 03/12/22 11:14 Freq: Status: Active Protocol: Activity Type Activity Date Activity User E-sign Co-sign Detail Recorded Client Recorded Date Recorded By Document 03/26/22 11:49 PL [id number] 03/26/22 11:55 PL 03/26/22 11:49 Wound Center Nurse 2 10. L plantar -Time 11:17 -Correct Patient Yes -Correct Side, Site, Position Yes -Correct Procedure Yes -Procedure Performed Yes -Type of Procedure Debridement -Clinical Debridement Subcutaneous -Tissue Removed Subcutaneous -Post Debridement (cm) - Length 2.0 -Post Debridement (cm) - Width 2.2 -Post Debridement (cm) - Depth 0.4 -Total Square (Post) (cm) 4.40 -Area of Debridement (cm) - Length 2.0 -Area of Debridement (cm) - Width 2.2 -Total Square (Area) (cm) 4.40 -Tunneling No -Undermining/Tunneling No -Circular Undermining No -Wound/Ulcer Outcome Not Healed -Ulcer Cleansing Rinsed/ Irrigated with Saline -Foul Odor after Cleansing No -Bioengineered Tissue No -Bleeding Controlled with Pressure -Treatment Response Procedure Tolerated Well -Type of Offloading Total Contact Cast (TCC) - Left ($) -Debridement - Subq, 1st 20sq cm No #5- R PLANTAR FOOT -Time 11:17 -Correct Patient Yes -Correct Side, Site, Position Yes -Correct Procedure Yes -Procedure Performed Yes -Type of Procedure Debridement -Clinical Debridement Subcutaneous -Tissue Removed Subcutaneous -Post Debridement (cm) - Length 2.1 -Post Debridement (cm) - Width 1.5 -Post Debridement (cm) - Depth 0.4 -Total Square (Post) (cm) 3.15 -Area of Debridement (cm) - Length 2.1 -Area of Debridement (cm) - Width 1.5 -Total Square (Area) (cm) 3.15 -Tunneling No -Undermining/Tunneling No -Circular Undermining No -Wound/Ulcer Outcome Not Healed -Ulcer Cleansing Rinsed/ Irrigated with Saline -Foul Odor after Cleansing No -Bioengineered Tissue No -Bleeding Controlled with Pressure -Treatment Response Procedure Tolerated Well -Debridement - Subq, 1st 20sq cm Yes Pain Scale: 0-10 Numeric Is Patient Pain Free? Yes WC - Nurse 3 - General Ulcer D/C NN Start: 03/12/22 11:14 Freq: Status: Active Protocol: Activity Type Activity Date Activity User E-sign Co-sign Detail Recorded Client Recorded Date Recorded By Document 03/26/22 11:42 [facility] [id number] 03/26/22 11:43 [facility] 03/26/22 11:42 Wound Care Nurse 3 10. L plantar -Ulcer Cleansing Rinsed/ Irrigated with Saline -Foul Odor after Cleansing No -Primary Dressing Applied Aquacel AG 4x4, Optilok 6.5x10 -Other Dressing TCC UNDERCAST -Aquacel AG 4x4 1 -Optilok 6.5x10 1 #5- R PLANTAR FOOT -Ulcer Cleansing Rinsed/ Irrigated with Saline -Foul Odor after Cleansing No -Primary Dressing Applied Aquacel AG 4x4 -Primary Dressing Covered/Secured with Dry Gauze & Roll Gauze, Secured with Tape,Other -Other Covering ABD -Aquacel AG 4x4 0 Right -Compression Wrap Jason Wrap Treatment Response Procedure Tolerated Well Pain Scale: 0-10 Numeric Is Patient Pain Free? Yes WC - Visit Discharge Discharge Condition Stable Ambulatory Status Ambulatory, Walker Transportation Private Auto Accompanied by SISTER Assessment/Plan Assessment/Plan (1) Diabetic foot ulcer associated with diabetes mellitus due to underlying co ndition: CODE(S): E08.621 - Diabetes mellitus due to underlying condition with foot ulcer; L97.509 - Non-pressure chronic ulcer of other part of unspecified foot with unspecified severity QUALIFIERS: Diabetic foot ulcer location: midfoot Laterality: unspecified laterality Non-pressure ulcer stage: with necrosis of bone Qualified Code(s): E08.621 - Diabetes mellitus due to underlying condition with foot ulcer; L97.404 - Non-pressure chronic ulcer of unspecified heel and midfoot with necrosis of bone (2) Type 2 diabetes mellitus with peripheral neuropathy: CODE(S): E11.42 - Type 2 diabetes mellitus with diabetic polyneuropathy (3) Type 2 diabetes mellitus: CODE(S): E11.9 - Type 2 diabetes mellitus without complications QUALIFIERS: Diabetes mellitus fpc insulin use: without continuous churn buttermaker use Diabetes mellitus complication status: with circulatory complication Diabetes mellitus complication detail: with peripheral angiopathy with gangrene Qualified Code(s): E11.52 - Type 2 diabetes mellitus with diabetic peripheral angiopathy with gangrene (4) Chronic ulcer of left foot with necrosis of bone: CODE(S): L97.524 - Non-pressure chronic ulcer of other part of left foot with necrosis of bone (5) Foot osteomyelitis, left: CODE(S): M86.9 - Osteomyelitis, unspecified QUALIFIERS: Osteomyelitis type: acute hematogenous Qualified Code(s): M86.072 - Acute hematogenous osteomyelitis, left ankle and foot PLAN: Plan The patient appears to be tolerating hyperbaric oxygen therapy well, which will be continued as per their medical treatment plan.
[2022-04-01 08:50] LABS: Bedside Glucose 259 mg/dL (74-106)
[2022-04-01 09:00] LABS: Bedside Glucose 263 mg/dL (74-106)
[2022-04-01 09:20] LABS: Bedside Glucose 271 mg/dL (74-106)
--- NOTE | 2022-04-01 11:49 | WC ---
Pt couldn't dive today d/t blood sugar of 271.
[2022-04-02 11:35] VITALS: BP 173/89; PULSE 93; RESP 18; TEMP 36.3
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
[2022-04-03 08:45] LABS: Bedside Glucose 236 mg/dL (74-106)
--- NOTE | 2022-04-03 08:50 | PCM.HBO.PN ---
History of Present Illness Date of Service: 04/03/22 Chief Complaint: Right and left foot ulcer follow-up History of Wound: This is a 66-year-old female who is a known diabetic. She also suffers from diabetic neuropathy. She continues hyperbaric oxygen therapy and reports the sessions are going well for treatment of left foot osteomyelitis. She denies fever, chill, nausea, vomiting, purulence or odor. She is seen for ulcers of both feet and reports increased drainage. She denies redness, streaking or odor to either foot. she has not been able to fully offload as advised and does not like the nutritional supplements. She has significantly reduced her walking activity at home and also to a break from riding her recumbent bike. She is amenable to try knee roller at this time. Progress of Wound: improving Subjective Subjective Progress: Today is the 6th treatment of hyperbaric oxygen therapy. The patient is scheduled for 20 treatments total. Tolerance of hyperbaric oxygen therapy: Hyperbaric oxygen treatment was provided as per the facility's protocol at 2.0 LUCINDA in 100% oxygen for 90 minutes without air breaks. The patient tolerated hyperbaric oxygen well, without complications or complaints. Upon emergence of the hyperbaric chamber, the patient's vital signs remained stable. Objective Data Objective Data Vital Signs: Vital Signs Temp Pulse Resp BP 97.3 F L 93 18 173/89 H 04/02/22 11:35 04/02/22 11:35 04/02/22 11:35 04/02/22 11:35 Lab / Micro Data Labs: Laboratory Results - last 24 hr 04/03/22 08:27: POC Glucose 236 H Exam Physical Exam Const alert and oriented x3 General Appearance: cooperative HEENT normocephalic HEENT Narrative: Bilateral TM with ear tubes in place. No drainage noted. Head and Scalp: atraumatic Eyes PERRL Resp normal respiratory effort and clear to auscultation bilaterally Cardio regular rate and regular rhythm Psych Appearance: grossly normal and well kempt Nursing Assessment and Debridement Post-Debridement Measurements and Additional Note: Post-Debridement Measurements/Treatment WC - Nurse 1 - General Ulcer Assessment Start: 03/12/22 11:14 Freq: Status: Active Protocol: [email or web address] Activity Type Activity Date Activity User E-sign Co-sign Detail Recorded Client Recorded Date Recorded By Document 04/02/22 11:35 [id number] 04/02/22 11:53 04/02/22 11:35 - Today's Visit Information 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 ) Arrival Mode Ambulatory, Walker Transfer Assistance None Patient Identification Verified (Name & Yes ) Patient Requires Transmission-Based No Precautions Finger Stick Blood Sugar(mg/dl) (if 306 indicated): Blood Sugar Stated by Patient Vital Signs Temperature (97.8 F-99.1 F) 97.3 F L Temperature Source Temporal Pulse Rate (60-100) 93 Pulse Location Monitor Respiratory Rate (12-18) 18 Respiratory rate source Observation Blood Pressure (90/60-120/80) 173/89 H Blood Pressure Mean (mm Hg) 117 Source Monitor Position Sitting Blood Pressure Location Left Arm History Since Last Visit- (Skip if this is Patient's initial visit) Have you changed medications since your No last visit? Any new allergies or adverse reactions No Had a fall/change in ADL's that may No increase risk of falls Signs or symptoms of abuse and/or No neglect since last visit Have you been in the hospital since your No last visit? Has dressing in place as prescribed Yes Has compression in place as prescribed No Has offloadiing in place as prescribed Yes Experienced any changes in pain level or No management Left Footwear Total Contact Cast Right Footwear Surgical Shoe with pressure relief insole Pain Scale: 0-10 Numeric Is Patient Pain Free? Yes - Nurse 1 - General Ulcer Measurement Start: 03/12/22 11:14 Freq: Status: Active Protocol: Activity Type Activity Date Activity User E-sign Co-sign Detail Recorded Client Recorded Date Recorded By Document 04/02/22 11:35 [id number] 04/02/22 11:53 04/02/22 11:35 Wound Center Nurse 1 10. L plantar -Combined with other wound No -Current Size (cm) - Length 2 -Current Size (cm) - Width 2.4 -Current Size (cm) - Depth 0.4 -Total Square Cm 4.8 -Photo Taken Yes -Tunneling No -Undermining/Tunneling No -Circular Undermining No -Exudate Amt Large -Exudate Type Serosanguineous -Wound Margin Thickened & Rolled Under -Granulation Amt Medium (34-66%) -Granulation Quality [place] -Necrosis Amt Large (67-100%) -Necrotic Tissue Type Adherent Slough -Structure Exposed N/A -Texture (Toyin-wound Skin Appearance) Assessed,Callus -Moisture (Toyin-wound Skin Appearance) Assessed, Maceration -Color (Toyin-wound Skin Appearance) Assessed -Temperature (Toyin-wound Skin No Abnormality Appearance) (Pt Warm) -Tenderness on Palpation (Toyin-wound No Skin Appearance) -Ulcer Cleansing Wound Cleanser -Foul Odor after Cleansing No -Anesthetic Used 5% Lidocaine Gel #5- R PLANTAR FOOT -Combined with other wound No -Current Size (cm) - Length 1.8 -Current Size (cm) - Width 1.3 -Current Size (cm) - Depth 0.3 -Total Square Cm 2.34 -Photo Taken Yes -Tunneling No -Undermining/Tunneling No -Circular Undermining No -Exudate Amt Large -Exudate Type Serosanguineous -Wound Margin Thickened & Rolled Under -Granulation Amt Medium (34-66%) -Granulation Quality Pale -Slough/Fibrin Yes -Necrosis Amt Small (1-33%) -Necrotic Tissue Type Eschar -Structure Exposed N/A -Texture (Toyin-wound Skin Appearance) Assessed,Callus -Moisture (Toyin-wound Skin Appearance) Assessed -Color (Toyin-wound Skin Appearance) Assessed -Temperature (Toyin-wound Skin No Abnormality Appearance) (Pt Warm) -Tenderness on Palpation (Toyin-wound No Skin Appearance) -Ulcer Cleansing Wound Cleanser -Foul Odor after Cleansing No -Anesthetic Used 5% Lidocaine Gel WC - Nurse 2 - General Ulcer CM Notes Start: 03/12/22 11:14 Freq: Status: Active Protocol: Activity Type Activity Date Activity User E-sign Co-sign Detail Recorded Client Recorded Date Recorded By Document 04/02/22 11:59 [email or web address] [id number] 04/02/22 12:03 ALYSSA 04/02/22 11:59 Wound Center Nurse 2 10. L plantar -Time 12:00 -Correct Patient Yes -Correct Side, Site, Position Yes -Correct Procedure Yes -Procedure Performed Yes -Type of Procedure Debridement -Clinical Debridement Subcutaneous -Tissue Removed Subcutaneous -Post Debridement (cm) - Length 2.0 -Post Debridement (cm) - Width 2.5 -Post Debridement (cm) - Depth 0.4 -Total Square (Post) (cm) 5.00 -Area of Debridement (cm) - Length 2.0 -Area of Debridement (cm) - Width 2.5 -Total Square (Area) (cm) 5.00 -Tunneling No -Undermining/Tunneling No -Circular Undermining No -Wound/Ulcer Outcome Not Healed -Ulcer Cleansing Rinsed/ Irrigated with Saline -Foul Odor after Cleansing No -Bioengineered Tissue No -Bleeding Controlled with Pressure -Treatment Response Procedure Tolerated Well -Offloading Yes -Type of Offloading Total Contact Cast (TCC) - Left ($) -Debridement - Subq, 1st 20sq cm No #5- R PLANTAR FOOT -Time 12:00 -Correct Patient Yes -Correct Side, Site, Position Yes -Correct Procedure Yes -Procedure Performed Yes -Type of Procedure Debridement -Clinical Debridement Subcutaneous -Tissue Removed Subcutaneous -Post Debridement (cm) - Length 1.8 -Post Debridement (cm) - Width 1.4 -Post Debridement (cm) - Depth 0.3 -Total Square (Post) (cm) 2.52 -Area of Debridement (cm) - Length 1.8 -Area of Debridement (cm) - Width 1.4 -Total Square (Area) (cm) 2.52 -Tunneling No -Undermining/Tunneling No -Circular Undermining No -Wound/Ulcer Outcome Not Healed -Ulcer Cleansing Rinsed/ Irrigated with Saline -Foul Odor after Cleansing No -Bioengineered Tissue No -Bleeding Controlled with Pressure -Treatment Response Procedure Tolerated Well -Offloading Yes -Type of Offloading Knee Walker -Debridement - Subq, 1st 20sq cm Yes Pain Scale: 0-10 Numeric Is Patient Pain Free? Yes - Nurse 3 - General Ulcer D/C NN Start: 03/12/22 11:14 Freq: Status: Active Protocol: Activity Type Activity Date Activity User E-sign Co-sign Detail Recorded Client Recorded Date Recorded By Document 04/02/22 12:16 RB [id number] 04/02/22 12:18 RB 04/02/22 12:16 Wound Care Nurse 3 10. L plantar -Ulcer Cleansing Rinsed/ Irrigated with Saline -Primary Dressing Applied Aquacel AG 4x4 -Primary Dressing Covered/Secured with Dry Gauze,Dry Gauze & Roll Gauze,Secured with Tape -Aquacel AG 4x4 1 #5- R PLANTAR FOOT -Ulcer Cleansing Wound Cleanser -Primary Dressing Applied Optilok 6.5x10 -Other Dressing aquacel ag then primary layer of TCC 3 inch -Optilok 6.5x10 1 Treatment Response Procedure Tolerated Well Pain Scale: 0-10 Numeric Is Patient Pain Free? Yes WC - Visit Discharge Discharge Condition Stable Ambulatory Status Ambulatory, Walker Transportation Private Auto Medication Reconcilliation completed & No provided to patient/care provider Clinical Summary of Care Provided Yes Assessment/Plan Assessment/Plan (1) Diabetic foot ulcer associated with diabetes mellitus due to underlying condition: CODE(S): E08.621 - Diabetes mellitus due to underlying condition with foot ulcer; L97.509 - Non-pressure chronic ulcer of other part of unspecified foot with unspecified severity QUALIFIERS: Diabetic foot ulcer location: midfoot Laterality: unspecified laterality Non-pressure ulcer stage: with necrosis of bone Qualified Code(s): E08.621 - Diabetes mellitus due to underlying condition with foot ulcer; L97.404 - Non-pressure chronic ulcer of unspecified heel and midfoot with necrosis of bone (2) Type 2 diabetes mellitus with peripheral neuropathy: CODE(S): E11.42 - Type 2 diabetes mellitus with diabetic polyneuropathy (3) Type 2 diabetes mellitus: CODE(S): E11.9 - Type 2 diabetes mellitus without complications QUALIFIERS: Diabetes mellitus complication detail: with peripheral angiopathy with gangrene Diabetes mellitus complication status: with circulatory complication Diabetes mellitus long-term insulin use: without buttermilk drier operator use Qualified Code(s): E11.52 - Type 2 diabetes mellitus with diabetic peripheral angiopathy with gangrene (4) Chronic ulcer of left foot with necrosis of bone: CODE(S): L97.524 - Non-pressure chronic ulcer of other part of left foot with necrosis of bone (5) Foot osteomyelitis, left: CODE(S): M86.9 - Osteomyelitis, unspecified QUALIFIERS: Osteomyelitis type: acute hematogenous Qualified Code(s): M86.072 - Acute hematogenous osteomyelitis, left ankle and foot PLAN: Plan The patient appears to be tolerating hyperbaric oxygen therapy well, which will be continued as per their medical treatment plan.
[2022-04-03 11:01] LABS: Bedside Glucose 251 mg/dL (74-106)
[2022-04-03 11:09] VITALS: BP 152/77; BP 154/74; PULSE 82; PULSE 87; RESP 16; RESP 17; TEMP 37
--- NOTE | 2022-04-04 10:57 | WC ---
Pt. called in and blood sugar was over 270 and she was not able to get it to lower. HBOT cancelled for today.
== END 2022-04-06 23:59 | disposition home or self-care (01) ==
LOC: WC 08:30
PROVIDERS: PCP Family Medicine; Visit Provider Podiatrist
DX: E11.621 Type 2 diabetes mellitus with foot ulcer (principal); E11.52 Type 2 diabetes mellitus with diabetic peripheral angiopathy with gangrene; E08.622 Diabetes mellitus due to underlying condition with other skin ulcer; E08.621 Diabetes mellitus due to underlying condition with foot ulcer; L97.514 Non-pressure chronic ulcer of other part of right foot with necrosis of bone; L97.404 Non-pressure chronic ulcer of unspecified heel and midfoot with necrosis of bone; L97.524 Non-pressure chronic ulcer of other part of left foot with necrosis of bone; E44.1 Mild protein-calorie malnutrition; M86.672 Other chronic osteomyelitis, left ankle and foot; M86.172 Other acute osteomyelitis, left ankle and foot; M86.072 Acute hematogenous osteomyelitis, left ankle and foot; M86.9 Osteomyelitis, unspecified; E11.42 Type 2 diabetes mellitus with diabetic polyneuropathy; R19.7 Diarrhea, unspecified; R60.0 Localized edema; L03.115 Cellulitis of right lower limb; I10 Essential (primary) hypertension; E78.5 Hyperlipidemia, unspecified; Z79.82 Long term (current) use of aspirin; Z79.84 Long term (current) use of oral hypoglycemic drugs
CPT/HCPCS: 11042; 29445; 82962; 99183; 99213; G0277; G0463

== ENCOUNTER 2022-05-07 11:00 | Outpatient (RCR) | payer MEDICARE, SELFPAY ==
[2022-04-07 00:25] VITALS: BP 152/77; PULSE 87; RESP 17; TEMP 37
[2022-04-09 08:46] LABS: Bedside Glucose 226 mg/dL (74-106)
[2022-04-09 09:22] VITALS: BP 165/70; BP 169/72; PULSE 76; PULSE 85; RESP 16; RESP 17; TEMP 36.2; TEMP 36.7
--- NOTE | 2022-04-09 11:03 | PCM.HBO.PN ---
History of Present Illness Date of Service: 04/09/22 Chief Complaint: Right and left foot ulcer follow-up History of Wound: This is a 66-year-old female who is a known diabetic. She also suffers from diabetic neuropathy. She continues hyperbaric oxygen therapy and reports the sessions are going well for treatment of left foot osteomyelitis. She denies fever, chill, nausea, vomiting, purulence or odor. She is seen for ulcers of both feet and reports increased drainage. She denies redness, streaking or odor to either foot. she has not been able to fully offload as advised and does not like the nutritional supplements. She has significantly reduced her walking activity at home and also to a break from riding her recumbent bike. She is amenable to try knee roller at this time. Progress of Wound: Patient is receiving #7 of 20 treatments of HBO. Tolerating very well Subjective Subjective Patient has no concerns Objective Data Objective Data Vital signs are stable patient doing well we will continue with scheduled HBO treatments Vital Signs: Vital Signs Temp Pulse Resp BP 98.1 F 85 16 165/70 H 04/09/22 09:22 04/09/22 09:22 04/09/22 09:22 04/09/22 09:22 Lab / Micro Data Labs: Laboratory Results - last 24 hr 04/09/22 08:27: POC Glucose 226 H Exam Physical Exam Const alert and oriented x3 General Appearance: cooperative HEENT normocephalic HEENT Narrative: Bilateral TM with ear tubes in place. No drainage noted. Head and Scalp: atraumatic Eyes PERRL Resp normal respiratory effort and clear to auscultation bilaterally Cardio regular rate and regular rhythm Psych Appearance: grossly normal and well kempt Nursing Assessment and Debridement Post-Debridement Measurements and Additional Note: Post-Debridement Measurements/Treatment - Nurse 1 - General Ulcer Assessment Start: 04/09/22 09:22 Freq: Status: Active Protocol: SOBIA Activity Type Activity Date Activity User E-sign Co-sign Detail Recorded Client Recorded Date Recorded By Document 04/09/22 10:50 DL [id number] 04/09/22 11:00 DL 04/09/22 10:50 WC - Today's Visit Information 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 Any new allergies or adverse reactions No Had a fall/change in ADL's that may No increase risk of falls Signs or symptoms of abuse and/or No neglect since last visit Have you been in the hospital since your No last visit? Has dressing in place as prescribed No Has compression in place as prescribed N/A Has offloadiing in place as prescribed Yes Experienced any changes in pain level or No management Left Footwear Total Contact Cast Pain Scale: 0-10 Numeric Is Patient Pain Free? Yes WC - Nurse 1 - General Ulcer Measurement Start: 04/09/22 09:22 Freq: Status: Active Protocol: Activity Type Activity Date Activity User E-sign Co-sign Detail Recorded Client Recorded Date Recorded By Document 04/09/22 10:50 DL [id number] 04/09/22 11:00 DL 04/09/22 10:50 Wound Center Nurse 1 10. L plantar -Current Size (cm) - Length 2 -Current Size (cm) - Width 1.8 -Current Size (cm) - Depth 0.2 -Total Square Cm 3.6 -Photo Taken No -Exudate Amt Medium -Exudate Type Serosanguineous -Wound Margin Thickened -Granulation Amt Large (67-100%) -Granulation Quality Pale -Necrosis Amt Small (1-33%) -Necrotic Tissue Type Adherent Slough -Structure Exposed N/A -Texture (Toyin-wound Skin Appearance) Callus -Moisture (Toyin-wound Skin Appearance) Maceration -Color (Toyin-wound Skin Appearance) No Abnormality -Temperature (Toyin-wound Skin No Abnormality Appearance) (Pt Warm) -Tenderness on Palpation (Toyin-wound No Skin Appearance) -Ulcer Cleansing Soap and Water -Foul Odor after Cleansing No -Anesthetic Used 5% Lidocaine Gel #5- R PLANTAR FOOT -Current Size (cm) - Length 1.8 -Current Size (cm) - Width 0.9 -Current Size (cm) - Depth 0.3 -Total Square Cm 1.62 -Photo Taken No -Exudate Amt Medium -Exudate Type Serosanguineous -Wound Margin Thickened -Granulation Amt Large (67-100%) -Granulation Quality Red -Necrosis Amt Small (1-33%) -Necrotic Tissue Type Adherent Slough -Structure Exposed N/A -Texture (Toyin-wound Skin Appearance) Callus,Scarring -Moisture (Toyin-wound Skin Appearance) No Abnormality -Color (Toyin-wound Skin Appearance) No Abnormality -Temperature (Toyin-wound Skin No Abnormality Appearance) (Pt Warm) -Ulcer Cleansing Not Cleansed -Foul Odor after Cleansing No -Anesthetic Used 5% Lidocaine Gel Assessment/Plan Assessment/Plan (1) Diabetic foot ulcer associated with diabetes mellitus due to underlying condition: CODE(S): E08.621 - Diabetes mellitus due to underlying condition with foot ulcer; L97.509 - Non-pressure chronic ulcer of other part of unspecified foot with unspecified severity QUALIFIERS: Diabetic foot ulcer location: midfoot Laterality: unspecified laterality Non-pressure ulcer stage: with necrosis of bone Qualified Code(s): E08.621 - Diabetes mellitus due to underlying condition with foot ulcer; L97.404 - Non-pressure chronic ulcer of unspecified heel and midfoot with necrosis of bone (2) Type 2 diabetes mellitus with peripheral neuropathy: CODE(S): E11.42 - Type 2 diabetes mellitus with diabetic polyneuropathy (3) Type 2 diabetes mellitus: CODE(S): E11.9 - Type 2 diabetes mellitus without complications QUALIFIERS: Diabetes mellitus complication detail: with peripheral angiopathy with gangrene Diabetes mellitus complication status: with circulatory complication Diabetes mellitus correction insulin use: without long distance billing operator use Qualified Code(s): E11.52 - Type 2 diabetes mellitus with diabetic peripheral angiopathy with gangrene (4) Chronic ulcer of left foot with necrosis of bone: CODE(S): L97.524 - Non-pressure chronic ulcer of other part of left foot with necrosis of bone (5) Foot osteomyelitis, left: CODE(S): M86.9 - Osteomyelitis, unspecified QUALIFIERS: Osteomyelitis type: acute hematogenous Qualified Code(s): M86.072 - Acute hematogenous osteomyelitis, left ankle and foot PLAN: Plan The patient appears to be tolerating hyperbaric oxygen therapy well, which will be continued as per their medical treatment plan.
[2022-04-09 11:05] LABS: Bedside Glucose 217 mg/dL (74-106)
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
[2022-04-10 08:45] LABS: Bedside Glucose 191 mg/dL (74-106)
[2022-04-10 08:55] VITALS: BP 151/65; BP 159/78; PULSE 79; PULSE 81; RESP 17; TEMP 37.1
[2022-04-10 11:01] LABS: Bedside Glucose 217 mg/dL (74-106)
--- NOTE | 2022-04-10 13:25 | HBO.PN.PCM_ITS ---
History of Present Illness Date of Service: 04/10/22 Chief Complaint: Right and left foot ulcer follow-up History of Wound: This is a 66-year-old female who is a known diabetic. She also suffers from diabetic neuropathy. She continues hyperbaric oxygen therapy and reports the sessions are going well for treatment of left foot osteomyelitis. She denies fever, chill, nausea, vomiting, purulence or odor. She is seen for ulcers of both feet and reports increased drainage. She denies redness, streaking or odor to either foot. she has not been able to fully offload as advised and does not like the nutritional supplements. She has significantly reduced her walking activity at home and also to a break from riding her recumbent bike. She is amenable to try knee roller at this time. Progress of Wound: Patient is receiving #8 of 20 treatments of HBO. Tolerating very well Objective Data Objective Data Vital Signs: Vital Signs Temp Pulse Resp BP 98.8 F 81 17 151/65 H 04/10/22 08:55 04/10/22 08:55 04/10/22 08:55 04/10/22 08:55 Lab / Micro Data Labs: Laboratory Results - last 24 hr 04/10/22 08:28: POC Glucose 191 H 04/10/22 10:38: POC Glucose 217 H Exam Physical Exam Const alert, oriented x3 and no apparent distress General Appearance: cooperative HEENT normocephalic HEENT Narrative: Bilateral ear tubes in place. Resp normal respiratory effort and clear to auscultation bilaterally Cardio regular rate and regular rhythm Psych affect normal Nursing Assessment and Debridement Post-Debridement Measurements and Additional Note: Post-Debridement Measurements/Treatment - Nurse 1 - General Ulcer Assessment Start: 04/09/22 09:22 Freq: Status: Active Protocol: WC.LOWEXT Activity Type Activity Date Activity User E-sign Co-sign Detail Recorded Client Recorded Date Recorded By Document 04/09/22 10:50 DL [id number] 04/09/22 11:00 DL 04/09/22 10:50 - Today's Visit Information Type of service Follow-up Visit (Physician/ANNUAL GIVING MANAGER ) Arrival Mode Ambulatory, Wheelchair Transfer Assistance None Patient Identification Verified (Name & Yes ) Patient Requires Transmission-Based No Precautions Vital Signs Comment HBO completed prio to appt this am History Since Last Visit- (Skip if this is Patient's initial visit) Have you changed medications since your No last visit? Any new allergies or adverse reactions No Had a fall/change in ADL's that may No increase risk of falls Signs or symptoms of abuse and/or No neglect since last visit Have you been in the hospital since your No last visit? Has dressing in place as prescribed No Has compression in place as prescribed N/A Has offloadiing in place as prescribed Yes Experienced any changes in pain level or No management Left Footwear Total Contact Cast Pain Scale: 0-10 Numeric Is Patient Pain Free? Yes WC - Nurse 1 - General Ulcer Measurement Start: 04/09/22 09:22 Freq: Status: Active Protocol: Activity Type Activity Date Activity User E-sign Co-sign Detail Recorded Client Recorded Date Recorded By Document 04/09/22 10:50 DL [id number] 04/09/22 11:00 DL 04/09/22 10:50 Wound Center Nurse 1 10. L plantar -Current Size (cm) - Length 2 -Current Size (cm) - Width 1.8 -Current Size (cm) - Depth 0.2 -Total Square Cm 3.6 -Photo Taken No -Exudate Amt Medium -Exudate Type Serosanguineous -Wound Margin Thickened -Granulation Amt Large (67-100%) -Granulation Quality Pale -Necrosis Amt Small (1-33%) -Necrotic Tissue Type Adherent Slough -Structure Exposed N/A -Texture (Toyin-wound Skin Appearance) Callus -Moisture (Toyin-wound Skin Appearance) Maceration -Color (Toyin-wound Skin Appearance) No Abnormality -Temperature (Toyin-wound Skin No Abnormality Appearance) (Pt Warm) -Tenderness on Palpation (Toyin-wound No Skin Appearance) -Ulcer Cleansing Soap and Water -Foul Odor after Cleansing No -Anesthetic Used 5% Lidocaine Gel #5- R PLANTAR FOOT -Current Size (cm) - Length 1.8 -Current Size (cm) - Width 0.9 -Current Size (cm) - Depth 0.3 -Total Square Cm 1.62 -Photo Taken No -Exudate Amt Medium -Exudate Type Serosanguineous -Wound Margin Thickened -Granulation Amt Large (67-100%) -Granulation Quality Red -Necrosis Amt Small (1-33%) -Necrotic Tissue Type Adherent Slough -Structure Exposed N/A -Texture (Toyin-wound Skin Appearance) Callus,Scarring -Moisture (Toyin-wound Skin Appearance) No Abnormality -Color (Toyin-wound Skin Appearance) No Abnormality -Temperature (Toyin-wound Skin No Abnormality Appearance) (Pt Warm) -Ulcer Cleansing Not Cleansed -Foul Odor after Cleansing No -Anesthetic Used 5% Lidocaine Gel WC - Nurse 2 - General Ulcer CM Notes Start: 04/09/22 09:22 Freq: Status: Active Protocol: Activity Type Activity Date Activity User E-sign Co-sign Detail Recorded Client Recorded Date Recorded By Document 04/09/22 11:14 ALYSSA [id number] 04/09/22 11:17 ALYSSA 04/09/22 11:14 Wound Center Nurse 2 10. L plantar -Time 11:14 -Correct Patient Yes -Correct Side, Site, Position Yes -Correct Procedure Yes -Procedure Performed Yes -Type of Procedure Incision & Drainage -Clinical Debridement Subcutaneous -Tissue Removed Subcutaneous -Post Debridement (cm) - Length 1.6 -Post Debridement (cm) - Width 1.8 -Post Debridement (cm) - Depth 0.3 -Total Square (Post) (cm) 2.88 -Area of Debridement (cm) - Length 1.6 -Area of Debridement (cm) - Width 1.8 -Total Square (Area) (cm) 2.88 -Tunneling No -Undermining/Tunneling No -Circular Undermining No -Wound/Ulcer Outcome Not Healed -Ulcer Cleansing Rinsed/ Irrigated with Saline -Foul Odor after Cleansing No -Bioengineered Tissue No -Bleeding Controlled with Pressure -Treatment Response Procedure Tolerated Well -Offloading Yes -Type of Offloading Total Contact Cast (TCC) - Left ($) -Debridement - Subq, 1st 20sq cm Yes #5- R PLANTAR FOOT -Time 11:15 -Correct Patient Yes -Correct Side, Site, Position Yes -Correct Procedure Yes -Procedure Performed Yes -Type of Procedure Debridement -Clinical Debridement Subcutaneous -Tissue Removed Subcutaneous -Post Debridement (cm) - Length 2.0 -Post Debridement (cm) - Width 1.6 -Post Debridement (cm) - Depth 0.2 -Total Square (Post) (cm) 3.20 -Area of Debridement (cm) - Length 2.0 -Area of Debridement (cm) - Width 1.6 -Total Square (Area) (cm) 3.20 -Tunneling No -Undermining/Tunneling No -Circular Undermining No -Wound/Ulcer Outcome Not Healed -Ulcer Cleansing Rinsed/ Irrigated with Saline -Bioengineered Tissue No -Bleeding Controlled with Pressure -Treatment Response Procedure Tolerated Well -Offloading Yes -Type of Offloading Surgical Shoe -Debridement - Subq, 1st 20sq cm No Pain Scale: 0-10 Numeric Is Patient Pain Free? Yes - Nurse 3 - General Ulcer D/C NN Start: 04/09/22 09:22 Freq: Status: Active Protocol: Activity Type Activity Date Activity User E-sign Co-sign Detail Recorded Client Recorded Date Recorded By Document 04/09/22 11:26 [facility] [id number] 04/09/22 11:28 [facility] 04/09/22 11:26 Wound Care Nurse 3 10. L plantar -Ulcer Cleansing Rinsed/ Irrigated with Saline -Foul Odor after Cleansing No -Primary Dressing Applied Aquacel AG 2x2 -Other Dressing TCC UNDERCAST, SUPERABSORBER -Primary Dressing Covered/Secured with Dry Gauze -Other Covering DRSG PER DL PREVENTIVE MEDICINE SPECIALIST -Aquacel AG 2x2 1 #5- R PLANTAR FOOT -Ulcer Cleansing Rinsed/ Irrigated with Saline -Foul Odor after Cleansing No -Primary Dressing Applied Aquacel AG 2x2 -Other Dressing DRSG PER DL PREVENTIVE MEDICINE SPECIALIST -Primary Dressing Covered/Secured with Dry Gauze & Roll Gauze, Secured with Tape -Aquacel AG 2x2 0 Right -Other PTS OWN LOGAN APPLIED PER DL PREVENTIVE MEDICINE SPECIALIST Treatment Response Procedure Tolerated Well Pain Scale: 0-10 Numeric Is Patient Pain Free? Yes - Visit Discharge Discharge Condition Stable Ambulatory Status Ambulatory, Walker Transportation Private Auto Charges/Coding Wound Center CF Procedures HBO Supervision: [id number] Hyperbaric Oxygen; supervision Assessment/Plan Assessment/Plan (1) Diabetic foot ulcer associated with diabetes mellitus due to underlying condition: CODE(S): E08.621 - Diabetes mellitus due to underlying condition with foot ulcer; L97.509 - Non-pressure chronic ulcer of other part of unspecified foot with unspecified severity QUALIFIERS: Diabetic foot ulcer location: midfoot Laterality: unspecified laterality Non-pressure ulcer stage: with necrosis of bone Qualified Code(s): E08.621 - Diabetes mellitus due to underlying condition with foot ulcer; L97.404 - Non-pressure chronic ulcer of unspecified heel and midfoot with necrosis of bone (2) Type 2 diabetes mellitus with peripheral neuropathy: CODE(S): E11.42 - Type 2 diabetes mellitus with diabetic polyneuropathy (3) Type 2 diabetes mellitus: CODE(S): E11.9 - Type 2 diabetes mellitus without complications QUALIFIERS: Diabetes mellitus snf insulin use: without snf use Diabetes mellitus complication status: with circulatory complication Diabetes mellitus complication detail: with peripheral angiopathy with gangrene Qualified Code(s): E11.52 - Type 2 diabetes mellitus with diabetic peripheral angiopathy with gangrene (4) Chronic ulcer of left foot with necrosis of bone: CODE(S): L97.524 - Non-pressure chronic ulcer of other part of left foot with necrosis of bone (5) Foot osteomyelitis, left: CODE(S): M86.9 - Osteomyelitis, unspecified QUALIFIERS: Osteomyelitis type: acute hematogenous Qualified Code(s): M86.072 - Acute hematogenous osteomyelitis, left ankle and foot PLAN: Plan The patient appears to be tolerating hyperbaric oxygen therapy well, which will be continued as per their medical treatment plan.
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
[2022-04-16 11:05] VITALS: BP 156/84; PULSE 83; RESP 20; TEMP 35.9
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
[2022-04-23 08:40] LABS: Bedside Glucose 234 mg/dL (74-106)
[2022-04-23 09:36] VITALS: BP 149/75; BP 164/73; PULSE 84; PULSE 85; RESP 16; RESP 17; TEMP 36.3
[2022-04-23 10:50] LABS: Bedside Glucose 203 mg/dL (74-106)
--- NOTE | 2022-04-23 11:00 | HBO.PN.PCM_ITS ---
History of Present Illness Date of Service: 04/23/22 Chief Complaint: Right and left foot ulcer follow-up History of Wound: This is a 66-year-old female who is a known diabetic. She also suffers from diabetic neuropathy. She continues hyperbaric oxygen therapy and reports the sessions are going well for treatment of left foot osteomyelitis. She has been seen for ulcers of both feet and reports decreased drainage. She denies redness, streaking or odor to either foot. She is trying to offload better. She denies fever, chill, nausea, vomiting, purulence or odor. Progress of Wound: improving bilateral tolerating the HBO treatments #9 of 20 with no incident Subjective Subjective Patient has no concerns Objective Data Objective Data Tolerating HBO treatments well vital signs stable on admission and discharge Vital Signs: Vital Signs Temp Pulse Resp BP 97.3 F L 85 16 164/73 H 04/23/22 09:36 04/23/22 09:36 04/23/22 09:36 04/23/22 09:36 Lab / Micro Data Labs: Laboratory Results - last 24 hr 04/23/22 08:22: POC Glucose 234 H 04/23/22 10:28: POC Glucose 203 H Assessment/Plan Assessment/Plan (1) Diabetic foot ulcer associated with diabetes mellitus due to underlying condition: CODE(S): E08.621 - Diabetes mellitus due to underlying condition with foot ulcer; L97.509 - Non-pressure chronic ulcer of other part of unspecified foot with unspecified severity QUALIFIERS: Diabetic foot ulcer location: midfoot Laterality: unspecified laterality Non-pressure ulcer stage: with necrosis of bone Qualified Code(s): E08.621 - Diabetes mellitus due to underlying condition with foot ulcer; L97.404 - Non-pressure chronic ulcer of unspecified heel and midfoot with necrosis of bone (2) Type 2 diabetes mellitus with peripheral neuropathy: CODE(S): E11.42 - Type 2 diabetes mellitus with diabetic polyneuropathy (3) Type 2 diabetes mellitus: CODE(S): E11.9 - Type 2 diabetes mellitus without complications QUALIFIERS: Diabetes mellitus correction insulin use: without intermodal customer service use Diabetes mellitus complication status: with circulatory complication Diabetes mellitus complication detail: with peripheral angiopathy with gangrene Qualified Code(s): E11.52 - Type 2 diabetes mellitus with diabetic peripheral angiopathy with gangrene (4) Chronic ulcer of left foot with necrosis of bone: CODE(S): L97.524 - Non-pressure chronic ulcer of other part of left foot with necrosis of bone (5) Foot osteomyelitis, left: CODE(S): M86.9 - Osteomyelitis, unspecified QUALIFIERS: Osteomyelitis type: acute hematogenous Qualified Code(s): M86.072 - Acute hematogenous osteomyelitis, left ankle and foot PLAN: Plan The patient appears to be tolerating hyperbaric oxygen therapy well, which will be continued as per their medical treatment plan.
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
[2022-04-30 11:08] VITALS: BP 172/80; PULSE 91; RESP 18; TEMP 36.6
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
[2022-05-07 11:06] VITALS: BP 171/67; PULSE 84; RESP 18; TEMP 36.3
--- NOTE | 2022-05-07 11:41 | PN.PCM_ITS ---
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 hyperbaric oxygen therapy treatment and continued participation is recommended. The patient is to return in 1 week for reassessment I reviewed the patient's case. Note: [email or web address] speech recognition office bookkeeper software was used to create portions of this document. Sound-alike and misspelled words, as well as other office bookkeeper errors may be contained in the documentation. The medical decision making level is low. There is noted low risk of morbidity after considering this treatment plan and diagnostic data. The problems addressed require a low medical decision making level which includes two or more minor problems, a stable chronic illness, or an acute uncomplicated illness or injury. ?
== END 2022-05-07 23:59 | disposition home or self-care (01) ==
LOC: WC 11:00
PROVIDERS: PCP Family Medicine; Visit Provider Podiatrist
DX: L97.404 Non-pressure chronic ulcer of unspecified heel and midfoot with necrosis of bone (principal); E11.52 Type 2 diabetes mellitus with diabetic peripheral angiopathy with gangrene; E08.622 Diabetes mellitus due to underlying condition with other skin ulcer; E08.621 Diabetes mellitus due to underlying condition with foot ulcer; L97.524 Non-pressure chronic ulcer of other part of left foot with necrosis of bone; L97.514 Non-pressure chronic ulcer of other part of right foot with necrosis of bone; M86.072 Acute hematogenous osteomyelitis, left ankle and foot; E11.42 Type 2 diabetes mellitus with diabetic polyneuropathy; B35.1 Tinea unguium; R60.0 Localized edema; G60.8 Other hereditary and idiopathic neuropathies
CPT/HCPCS: 11042; 29445; 82962; 99183; G0277

== ENCOUNTER 2022-05-22 11:15 | Outpatient (RCR) | payer MEDICARE, SELFPAY ==
[2022-05-08 00:28] VITALS: BP 171/67; PULSE 84; RESP 18; TEMP 36.3
[2022-05-14 11:13] VITALS: BP 170/69; PULSE 86; RESP 20; TEMP 36.4
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
[2022-05-22 11:49] VITALS: BP 125/78; PULSE 69; TEMP 36.1
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
== END 2022-06-06 23:59 | disposition home or self-care (01) ==
LOC: WC 11:15
PROVIDERS: PCP Family Medicine; Visit Provider Student in an Organized Health Care Education/Training Program
DX: E11.621 Type 2 diabetes mellitus with foot ulcer (principal); L97.522 Non-pressure chronic ulcer of other part of left foot with fat layer exposed; M86.072 Acute hematogenous osteomyelitis, left ankle and foot; E11.42 Type 2 diabetes mellitus with diabetic polyneuropathy; E11.69 Type 2 diabetes mellitus with other specified complication; B35.1 Tinea unguium; R60.0 Localized edema; G60.9 Hereditary and idiopathic neuropathy, unspecified
CPT/HCPCS: 11042; 29445; 99213; G0463

== ENCOUNTER → 2022-05-30 | Outpatient (CLI) | payer MEDICARE, SELFPAY ==
[2022-05-30 12:16] LABS: ALB/GLOB Ratio 0.7 RATIO (0.9-2.4); AST(SGOT) 18 U/L (15-37); Alanine Aminotransfer ALT/SGPT 26 U/L (13-56); Albumin, Serum 3.2 g/dL (3.2-5.0); Alkaline Phosphatase 140 U/L (45-117); Anion Gap 11 (5-15); BUN 48 mg/dL (7-18); BUN/Creat Ratio 24.5 RATIO (10-20); Calcium,Total 9.7 mg/dL (8.5-10.1); Chloride 109 mmol/L (98-107); Cholesterol 232 mg/dL (200); Creatinine, Serum 1.96 mg/dL (0.55-1.02); EST Glomerular Filtration Rate 27 mL/min (>60); Est Glom Filt Rate - Afr Amer 33 mL/min (>60); Globulin 4.6 g/dL (2.2-4.2); Glucose 199 mg/dL (74-106); High Density Lipoprotein 45 mg/dL; Potassium 4.5 mmol/L (3.5-5.1); Protein, Total 7.8 g/dL (6.4-8.2); Sodium Level 142 mmol/L (136-145); Thyroid Stim Hormone (TSH) 3.31 uIU/mL (0.358-3.74); Triglycerides 174 mg/dL; Very Low Density Lipoprotein 35 mg/dL (5-40)
[2022-05-30 12:26] LABS: Microalbumin:Creatinine Ratio 661.4 mg/g CRE (<30 mg/g CRE)
== END | disposition home or self-care (01) ==
LOC: LAB 10:52
PROVIDERS: PCP Family Medicine; Referring Provider Nurse Practitioner Family; Visit Provider Nurse Practitioner Family
DX: E83.52 Hypercalcemia (principal); E11.42 Type 2 diabetes mellitus with diabetic polyneuropathy; E78.5 Hyperlipidemia, unspecified; I10 Essential (primary) hypertension
CPT/HCPCS: 36415; 80053; 80061; 82043; 82306; 82570; 84443

== ENCOUNTER 2022-09-04 09:40 | Outpatient (RCR) | payer MEDICARE, SELFPAY ==
[2022-06-07 01:14] VITALS: BP 125/78; PULSE 69; RESP 20; TEMP 36.1
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
[2022-09-04 10:14] VITALS: BP 134/72; PULSE 93; TEMP 36.3
== END 2022-09-06 23:59 | disposition home or self-care (01) ==
LOC: WC 09:40
PROVIDERS: PCP Family Medicine; Visit Provider Student in an Organized Health Care Education/Training Program
DX: E11.621 Type 2 diabetes mellitus with foot ulcer (principal); L97.512 Non-pressure chronic ulcer of other part of right foot with fat layer exposed; L97.402 Non-pressure chronic ulcer of unspecified heel and midfoot with fat layer exposed; L97.502 Non-pressure chronic ulcer of other part of unspecified foot with fat layer exposed; E11.42 Type 2 diabetes mellitus with diabetic polyneuropathy; E11.22 Type 2 diabetes mellitus with diabetic chronic kidney disease; N18.4 Chronic kidney disease, stage 4 (severe); Z79.4 Long term (current) use of insulin; Z51.5 Encounter for palliative care; Z79.82 Long term (current) use of aspirin; I12.9 Hypertensive chronic kidney disease with stage 1 through stage 4 chronic kidney disease, or unspecified chronic kidney disease; E55.9 Vitamin D deficiency, unspecified; G60.9 Hereditary and idiopathic neuropathy, unspecified; E66.9 Obesity, unspecified; E78.5 Hyperlipidemia, unspecified; M54.16 Radiculopathy, lumbar region; L85.3 Xerosis cutis
CPT/HCPCS: 11720; 11042; 99213; G0463

== ENCOUNTER 2022-10-02 10:30 | Outpatient (RCR) | payer MEDICARE, SELFPAY ==
[2022-09-07 00:05] VITALS: BP 134/72; PULSE 93; RESP 20; TEMP 36.3
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
[2022-09-11 10:46] VITALS: BP 144/66; PULSE 96; RESP 18; TEMP 35.6
[2022-09-18 11:11] VITALS: BP 139/66; PULSE 95; TEMP 36.4
--- NOTE | 2022-09-18 11:17 | PN.PCM_ITS ---
History of Present Illness Date of Service: 09/18/22 Chief Complaint: Right and left foot ulcer follow-up History of Wound: This is a 66-year-old female who is a known diabetic. She also suffers from diabetic neuropathy. In the past she completed hyperbaric oxygen therapy and reports missing many sessions due to hyperglycemia. She reports she is doing much better now that she has reduced her activity at home. No longer attending HBO sessions. She uses a knee roller to remain nonweightbearing to the right foot. She has been seen for ulcers of both feet and reports decreased drainage. She denies redness, streaking or odor to either foot. She is trying to offload better with bilateral surgical shoes with offloading cut out for the base of the fifth metatarsal. She reports recent reopening of the right subfifth metatarsal base wound secondary to wearing a pair of crocs. She denies fever, chill, nausea, vomiting, purulence or odor. Progress of Wound: remains healed, left Right foot reopened Subjective Subjective Patient is a 66-year-old female who presents to the wound center today for follow-up of a plantar right foot wound.?Her sister aids in daily dressing changes.? She continues to offload both feet in surgical shoes with plantar offloading.? She recently met with endocrinology for continued reduction in her hemoglobin A1c.? She was recently seen in office for measurement of new diabetic shoes. She denies any constitutional symptoms today.? She has no further complaints today. Objective Data Objective Data Vital Signs: Vital Signs Temp Pulse Resp BP 97.5 F L 95 18 139/66 H 09/18/22 11:11 09/18/22 11:11 09/11/22 10:46 09/18/22 11:11 Physical Exam Const alert, oriented x3, no apparent distress and well nourished General Appearance: cooperative HEENT normocephalic Eyes General Eye: normal appearance of both eyes Neck General: normal visual inspection Lymph Lymphatic: no lymphadenopathy noted and no lymphedema noted Resp normal respiratory effort Cardio regular rate and regular rhythm Extremity normal capillary refill, no joint enlargement, no calf tenderness and no pedal edema Extremity Narrative: no cyanosis, no calf tenderness, diminished pulses bilateral muscle wasting noted. Skin no rashes or lesions noted, skin turgor normal and no jaundice Skin Narrative: no purulence, no erythema, no streaking, no odor bilateral.? Adjacent skin is atrophic and thin.? Plantar lateral right foot ulcer reopened with healthy granular bed. Left foot ulcer remains healed.? Her skin in general is xerotic and atrophic Wound Narrative: Plantar lateral subfifth metatarsal base ulceration demonstrates macerated wound margins with healthy red granular bed.? Mild serosanguineous drainage.? No purulent drainage, no malodor, no palpable fluctuance/bogginess, no visible abscess. Neuro moves all extremities Neuro Narrative: lack of normal epicritic sensation via light touch consistent with neuropathy Debridement Note Debridement Note Wound debrided: Sub fifth metatarsal base Laterality: Right Wound Grade/Stage: Henderson stage I Type of Debridement: Excisional debridement Anesthesia Used: 5% Lidocaine Gel Depth: Down to and including healthy tissue and in the subcutaneous layer Percentage of wound debrided: 100 Instrument Used: 3mm curette Tissue Removed: Fibrous, devitalized subcutaneous, biofilm, slough Severity: Fat Layer Exposed Amount of bleeding with debridement: Mild Bleeding Controlled with: Compression and gauze Patient tolerated procedure: Patient tolerated procedure well Post-Debridement Measurements and Additional Note: Post-Debridement Measurements/Treatment - Nurse 1 - General Ulcer Assessment Start: 09/11/22 10:46 Freq: Status: Active Protocol: SOBIA Activity Type Activity Date Activity User E-sign Co-sign Detail Recorded Client Recorded Date Recorded By Document 09/11/22 10:46 [id number] 09/11/22 10:51 Document 09/18/22 11:11 [id number] 09/18/22 11:15 09/11/22 09/18/22 10:46 11:11 - Today's Visit Information Type of service Follow-up Visit Follow-up Visit (Physician/[employer]PER[employer] (Physician/[employer] ) ) Arrival Mode Ambulatory, Ambulatory Walker Accompanied by sister Patient Identification Verified (Name & Yes ) Patient Requires Transmission-Based No Precautions Finger Stick Blood Sugar(mg/dl) (if 358 indicated): Vital Signs Temperature (97.8 F-99.1 F) 96.0 F L 97.5 F L Temperature Source Temporal Temporal Pulse Rate (60-100) 96 95 Pulse Location Monitor Monitor Respiratory Rate (12-18) 18 Respiratory rate source Observation Blood Pressure (90/60-120/80) 144/66 H 139/66 H Blood Pressure Mean (mm Hg) 92 90 Source Manual Monitor Position Sitting Semi-Fowlers Blood Pressure Location Right Arm Left Arm History Since Last Visit- (Skip if this is Patient's initial visit) Have you changed medications since your No No last visit? Any new allergies or adverse reactions No No Had a fall/change in ADL's that may No No increase risk of falls Signs or symptoms of abuse and/or No No neglect since last visit Have you been in the hospital since your No No last visit? Has dressing in place as prescribed Yes Yes Has compression in place as prescribed Yes N/A Has offloadiing in place as prescribed Yes N/A Experienced any changes in pain level or No No management Left Footwear Removable Cast Regular Shoe Walker/Walking Boot Right Footwear Surgical Shoe Regular Shoe with pressure relief insole Pain Scale: 0-10 Numeric Is Patient Pain Free? Yes Yes WC - Nurse 1 - General Ulcer Measurement Start: 09/11/22 10:46 Freq: Status: Active Protocol: Activity Type Activity Date Activity User E-sign Co-sign Detail Recorded Client Recorded Date Recorded By Document 09/11/22 10:46 [id number] 09/11/22 10:51 Document 09/18/22 11:11 [id number] 09/18/22 11:15 KR 09/11/22 09/18/22 10:46 11:11 Wound Center Nurse 1 #12 Right lateral foot -Combined with other wound No -Current Size (cm) - Length 0.8 0.7 -Current Size (cm) - Width 1.0 2 -Current Size (cm) - Depth 0.2 0.1 -Total Square Cm 0.80 1.4 -Photo Taken Yes -Epithelialization Small 1-33% -Tunneling Yes -Tunneling Position (O'clock) 9 -Tunneling Distance (cm) 0.9 -Undermining/Tunneling No -Circular Undermining No -Exudate Amt Small -Exudate Type Serosanguineous Serosanguineous -Wound Margin Fibrotic Scar, Distinct, Thickened Scar Outline Attached -Granulation Amt Small (1-33%) Small (1-33%) -Granulation Quality Pale [place] -Slough/Fibrin No -Necrosis Amt Large (67-100%) -Necrotic Tissue Type Adherent Slough -Structure Exposed N/A -Texture ([place]oy[place]-wound Skin Appearance) Assessed,Callus Assessed -Moisture ([place]-wound Skin Appearance) Assessed No Abnormality, Assessed -Color ([place]-wound Skin Appearance) Assessed No Abnormality, Assessed -Temperature ([place]-wound Skin No Abnormality No Abnormality Appearance) (Pt Warm) (Pt Warm) -Tenderness on Palpation ([place]-wound No No Skin Appearance) -Ulcer Cleansing Rinsed/ Rinsed/ Irrigated with Irrigated with Saline Saline -Foul Odor after Cleansing No No -Anesthetic Used 4% Lidocaine 5% Lidocaine Solution Gel Lower Limb Edema Present Yes Right Calf (cm) 32.5 Right Ankle (cm) 22.5 WC - Nurse 2 - General Ulcer CM Notes Start: 09/11/22 10:46 Freq: Status: Active Protocol: Activity Type Activity Date Activity User E-sign Co-sign Detail Recorded Client Recorded Date Recorded By Document 09/11/22 11:35 [id number] [id number] 09/11/22 11:36 PL 09/11/22 11:35 Wound Center Nurse 2 -Time 10:55 -Correct Patient Yes -Correct Side, Site, Position Yes -Correct Procedure Yes -Procedure Performed Yes -Type of Procedure Debridement -Clinical Debridement Subcutaneous -Tissue Removed Subcutaneous -Post Debridement (cm) - Length 1.4 -Post Debridement (cm) - Width 2.0 -Post Debridement (cm) - Depth 0.1 -Total Square (Post) (cm) 2.80 -Area of Debridement (cm) - Length 1.4 -Area of Debridement (cm) - Width 2.0 -Total Square (Area) (cm) 2.80 -Tunneling No -Undermining/Tunneling No -Circular Undermining No -Wound/Ulcer Outcome Not Healed -Ulcer Cleansing Rinsed/ Irrigated with Saline -Foul Odor after Cleansing No -Bioengineered Tissue No -Bleeding Controlled with Pressure -Treatment Response Procedure Tolerated Well -Debridement - Subq, 1st 20sq cm Yes Pain Scale: 0-10 Numeric Is Patient Pain Free? Yes - Nurse 3 - General Ulcer D/C NN Start: 09/11/22 10:46 Freq: Status: Active Protocol: Activity Type Activity Date Activity User E-sign Co-sign Detail Recorded Client Recorded Date Recorded By Document 09/11/22 11:44 [email or web address] [id number] 09/11/22 11:45 ALYSSA 09/11/22 11:44 Wound Care Nurse 3 #12 Right lateral foot -Ulcer Cleansing Rinsed/ Irrigated with Saline -Foul Odor after Cleansing No -Primary Dressing Applied C Hydrogel ($), Promogran Kezia Matter -Primary Dressing Covered/Secured with Dry Gauze,Dry Gauze & Roll Gauze,Secured with Tape -Promogran Kezia Matter 1 Right -Tubular Bandage Single Layer -Size of Tubigrip Used Size D -Size D ($) 0 Pain Scale: 0-10 Numeric Is Patient Pain Free? Yes WC - Visit Discharge Discharge Condition Stable Ambulatory Status Walker Transportation Private Auto Clinical Summary of Care Provided Yes Assessment/Plan Assessment/Plan (1) Non-pressure chronic ulcer of other part of right foot with fat layer exposed: CODE(S): L97.512 - Non-pressure chronic ulcer of other part of right foot with fat layer exposed (2) Type 2 diabetes mellitus with peripheral neuropathy: CODE(S): E11.42 - Type 2 diabetes mellitus with diabetic polyneuropathy (3) Diabetic foot ulcer associated with type 2 diabetes mellitus, with fat layer exposed: CODE(S): E11.621 - Type 2 diabetes mellitus with foot ulcer; L97.502 - Non-pressure chronic ulcer of other part of unspecified foot with fat layer exposed QUALIFIERS: Diabetic foot ulcer location: midfoot Laterality: unspecified laterality Qualified Code(s): E11.621 - Type 2 diabetes mellitus with foot ulcer; L97.402 - Non-pressure chronic ulcer of unspecified heel and midfoot with fat layer exposed (4) Xerosis cutis: CODE(S): L85.3 - Xerosis cutis (5) Vitamin D insufficiency: CODE(S): E55.9 - Vitamin D deficiency, unspecified (6) CKD (chronic kidney disease) stage 4, GFR 15-29 ml/min: CODE(S): N18.4 - Chronic kidney disease, stage 4 (severe) (7) Other hereditary and idiopathic neuropathies: CODE(S): G60.8 - Other hereditary and idiopathic neuropathies (8) Obesity: CODE(S): E66.9 - Obesity, unspecified (9) Hypertension: CODE(S): I10 - Essential (primary) hypertension QUALIFIERS: Hypertension type: unspecified Qualified Code(s): I10 - Essential (primary) hypertension (10) Hyperlipidemia: CODE(S): E78.5 - Hyperlipidemia, unspecified QUALIFIERS: Hyperlipidemia type: unspecified Qualified Code(s): E78.5 - Hyperlipidemia, unspecified (11) Lumbar radiculopathy: CODE(S): M54.16 - Radiculopathy, lumbar region PLAN: Plan Patient seen and evaluated She has reopened her previous ulcerative site at the base of the fifth metatarsal of the right foot.? Left foot currently remains healed.? Right foot ulceration measures 0.5 cm x 1.5 cm x 0.1 cm.? Ulcerative site underwent debridement as noted in clinical panel above.? No signs of infection noted. Ulceration demonstrates reduction in size vs previous visit.? Kezia moistened with hydrogel and dry sterile dressing applied to the wound site.? She is to continue to offload in surgical shoe to the right foot with fifth metatarsal base cut out to ensure proper offloading and reduction of pressure. She will also utilize knee scooter for additional offloading.? I discussed that she is not to return to any shoe gear that is not proper diabetic shoe gear with the offloading inserts.? She was seen last week in the office for measurement of new diabetic shoes.? She voices understanding of our discussion here today. Once shoes arrive she will begin wearing these for proper offloading. Encouraged to continue to offload left foot with surgical shoe as she has history of ulceration at the sub 5th metatarsal base. This site remains closed/healed at this time. She has been approved for an epi fix graft beginning 10/02/2022. Dressing: Kezia, hydrogel, dry sterile dressing, She is to change dressings daily. Wash: Antibacterial soap and water.? Offloading: To heel weightbearing right foot surgical shoe for transfers and short distance otherwise utilize knee scooter.? New diabetic shoes are required, she was seen in office last week for measurement of diabetic shoes and protective inserts as these are essential to maintain offloading status and prevention of free ulceration. Will transition to diabetic shoes with protective inserts once shoes have arrived. Diagnostic data: The patient has been encouraged to augment her nutritional intake.? She had a recent appointment with her electric welder helper and her hemoglobin A1c is noted to be 9.1%, this is only a mild improvement down from 9.8%. She has been advised to redouble her efforts at glycemic control, and to collaborate with her primary care physician in this regard.? I stressed the importance of proper sugar control to maintain healing aspect today and proper nutrition supplementation including Lino to aid her healing. Vascular: A noninvasive lower extremity arterial study, performed August 06, 2021, reveals no evidence of significant arterial occlusive disease in the lower extremities.? A venous duplex examination was also performed, revealing no evidence of lower extremity thrombophlebitis.? We will look to update vascular studies. Infection work-up and management: Prior procedures and infectious disease management are noted.? She had a reoccurrence of cellulitis of the right foot in which her cultures that were obtained on 02-26-2021 demonstrated Enterobacter cloacae, strep B, corynebacterium stratum, and anaerobic cocci, and this was negative for MRSA.? She completed a 10-day course of Augmentin and improvement was noted.? Her site is currently demonstrating no signs of infection, however given her history close monitoring for signs of infection is necessary. She was educated on the signs and symptoms of infection today. She was instructed if she notices any redness about the wound margin that moves up the foot/leg, malodor of the wound, purulent drainage from the wound, or if she experiences nausea, vomiting, fever greater than 101 degree, and chills that she is to report straight to the ED as these are progressing signs of infection. She voices understanding of this today. ? I answered all the patient's questions.? To return to the wound healing center in 1 week or call sooner if the patient has any questions or concerns. Note: [employer] speech recognition arc cutter plasma arc software was used to create portions of this document. Sound-alike and misspelled words, as well as other arc cutter plasma arc errors may be contained in the documentation.
--- NOTE | 2022-09-25 10:20 | PCM.WC.PN ---
History of Present Illness Date of Service: 09/25/22 Chief Complaint: Right and left foot ulcer follow-up History of Wound: This is a 66-year-old female who is a known diabetic. She also suffers from diabetic neuropathy. In the past she completed hyperbaric oxygen therapy and reports missing many sessions due to hyperglycemia. She reports she is doing much better now that she has reduced her activity at home. No longer attending HBO sessions. She uses a knee roller to remain nonweightbearing to the right foot. She has been seen for ulcers of both feet and reports decreased drainage. She denies redness, streaking or odor to either foot. She is trying to offload better with bilateral surgical shoes with offloading cut out for the base of the fifth metatarsal. She reports recent reopening of the right subfifth metatarsal base wound secondary to wearing a pair of crocs. She denies fever, chill, nausea, vomiting, purulence or odor. Progress of Wound: remains healed, left Right foot reopened Subjective Subjective Patient is a 66-year-old female who presents to the wound center today for follow-up of a plantar right foot wound.?Her sister aids in daily dressing changes to the foot.? She continues to offload both feet in surgical shoes with plantar offloading.? She has met with endocrinology for continued reduction in her hemoglobin A1c.?She denies any constitutional symptoms today.? She has no further complaints today. Objective Data Objective Data Vital Signs: Vital Signs Temp Pulse Resp BP 97.5 F L 95 18 139/66 H 09/18/22 11:11 09/18/22 11:11 09/11/22 10:46 09/18/22 11:11 Physical Exam Const alert, oriented x3, no apparent distress and well nourished General Appearance: cooperative HEENT normocephalic Eyes General Eye: normal appearance of both eyes Neck General: normal visual inspection Lymph Lymphatic: no lymphadenopathy noted and no lymphedema noted Resp normal respiratory effort Cardio regular rate and regular rhythm Extremity normal capillary refill, no joint enlargement, no calf tenderness and no pedal edema Extremity Narrative: no cyanosis, no calf tenderness, diminished pulses bilateral muscle wasting noted. Skin no rashes or lesions noted, skin turgor normal and no jaundice Skin Narrative: no purulence, no erythema, no streaking, no odor bilateral.? Adjacent skin is atrophic and thin.? Plantar lateral right foot ulcer reopened with healthy granular bed. Left foot ulcer remains healed.? Her skin in general is xerotic and atrophic Wound Narrative: Plantar lateral subfifth metatarsal base ulceration demonstrates macerated wound margins with healthy red granular bed.? Mild serosanguineous drainage.? No purulent drainage, no malodor, no palpable fluctuance/bogginess, no visible abscess. Neuro moves all extremities Neuro Narrative: lack of normal epicritic sensation via light touch consistent with neuropathy Debridement Note Debridement Note Wound debrided: Sub fifth metatarsal base Laterality: Right Wound Grade/Stage: Henderson stage I Type of Debridement: Excisional debridement Anesthesia Used: 5% Lidocaine Gel Depth: Down to and including healthy tissue and in the subcutaneous layer Percentage of wound debrided: 100 Instrument Used: 3mm curette Tissue Removed: Fibrous, devitalized subcutaneous, biofilm, slough Severity: Fat Layer Exposed Amount of bleeding with debridement: Mild Bleeding Controlled with: Compression and gauze Patient tolerated procedure: Patient tolerated procedure well Post-Debridement Measurements and Additional Note: Post-Debridement Measurements/Treatment - Nurse 1 - General Ulcer Assessment Start: 09/11/22 10:46 Freq: Status: Active Protocol: SOBIA Activity Type Activity Date Activity User E-sign Co-sign Detail Recorded Client Recorded Date Recorded By Document 09/11/22 10:46 [id number] 09/11/22 10:51 Document 09/18/22 11:11 [id number] 09/18/22 11:15 09/11/22 09/18/22 10:46 11:11 - Today's Visit Information Type of service Follow-up Visit Follow-up Visit (Physician/STORE GR[employer] MERCHANDISER (Physician/STORE [facility] MERCHANDISER ) ) Arrival Mode Ambulatory, Ambulatory Walker Accompanied by sister Patient Identification Verified (Name & Yes ) Patient Requires Transmission-Based No Precautions Finger Stick Blood Sugar(mg/dl) (if 358 indicated): Vital Signs Temperature (97.8 F-99.1 F) 96.0 F L 97.5 F L Temperature Source Temporal Temporal Pulse Rate (60-100) 96 95 Pulse Location Monitor Monitor Respiratory Rate (12-18) 18 Respiratory rate source Observation Blood Pressure (90/60-120/80) 144/66 H 139/66 H Blood Pressure Mean (mm Hg) 92 90 Source Manual Monitor Position Sitting Semi-Fowlers Blood Pressure Location Right Arm Left Arm History Since Last Visit- (Skip if this is Patient's initial visit) Have you changed medications since your No No last visit? Any new allergies or adverse reactions No No Had a fall/change in ADL's that may No No increase risk of falls Signs or symptoms of abuse and/or No No neglect since last visit Have you been in the hospital since your No No last visit? Has dressing in place as prescribed Yes Yes Has compression in place as prescribed Yes N/A Has offloadiing in place as prescribed Yes N/A Experienced any changes in pain level or No No management Left Footwear Removable Cast Regular Shoe Walker/Walking Boot Right Footwear Surgical Shoe Regular Shoe with pressure relief insole Pain Scale: 0-10 Numeric Is Patient Pain Free? Yes Yes WC - Nurse 1 - General Ulcer Measurement Start: 09/11/22 10:46 Freq: Status: Active Protocol: Activity Type Activity Date Activity User E-sign Co-sign Detail Recorded Client Recorded Date Recorded By Document 09/11/22 10:46 [id number] 09/11/22 10:51 Document 09/18/22 11:11 DARIN [id number] 09/18/22 11:15 DARIN 09/11/22 09/18/22 10:46 11:11 Wound Center Nurse 1 #12 Right lateral foot -Combined with other wound No -Current Size (cm) - Length 0.8 0.7 -Current Size (cm) - Width 1.0 2 -Current Size (cm) - Depth 0.2 0.1 -Total Square Cm 0.80 1.4 -Photo Taken Yes -Epithelialization Small 1-33% -Tunneling Yes -Tunneling Position (O'clock) 9 -Tunneling Distance (cm) 0.9 -Undermining/Tunneling No -Circular Undermining No -Exudate Amt Small -Exudate Type Serosanguineous Serosanguineous -Wound Margin Fibrotic Scar, Distinct, Thickened Scar Outline Attached -Granulation Amt Small (1-33%) Small (1-33%) -Granulation Quality Pale [place] -Slough/Fibrin No -Necrosis Amt Large (67-100%) -Necrotic Tissue Type Adherent Slough -Structure Exposed N/A -Texture ([place]-wound Skin Appearance) Assessed,Callus Assessed -Moisture ([place]-wound Skin Appearance) Assessed No Abnormality, Assessed -Color ([place]-wound Skin Appearance) Assessed No Abnormality, Assessed -Temperature ([place]-wound Skin No Abnormality No Abnormality Appearance) (Pt Warm) (Pt Warm) -Tenderness on Palpation ([place]-wound No No Skin Appearance) -Ulcer Cleansing Rinsed/ Rinsed/ Irrigated with Irrigated with Saline Saline -Foul Odor after Cleansing No No -Anesthetic Used 4% Lidocaine 5% Lidocaine Solution Gel Lower Limb Edema Present Yes Right Calf (cm) 32.5 Right Ankle (cm) 22.5 WC - Nurse 2 - General Ulcer CM Notes Start: 09/11/22 10:46 Freq: Status: Active Protocol: Activity Type Activity Date Activity User E-sign Co-sign Detail Recorded Client Recorded Date Recorded By Document 09/11/22 11:35 PL [id number] 09/11/22 11:36 PL Document 09/18/22 12:10 PL [id number] 09/18/22 12:11 PL 09/11/22 09/18/22 11:35 12:10 Wound Center Nurse 2 #12 Right lateral foot -Time 10:55 11:24 -Correct Patient Yes Yes -Correct Side, Site, Position Yes Yes -Correct Procedure Yes Yes -Procedure Performed Yes Yes -Type of Procedure Debridement Debridement -Clinical Debridement Subcutaneous Subcutaneous -Tissue Removed Subcutaneous Subcutaneous -Post Debridement (cm) - Length 1.4 0.7 -Post Debridement (cm) - Width 2.0 2.0 -Post Debridement (cm) - Depth 0.1 0.1 -Total Square (Post) (cm) 2.80 1.40 -Area of Debridement (cm) - Length 1.4 0.7 -Area of Debridement (cm) - Width 2.0 2.0 -Total Square (Area) (cm) 2.80 1.40 -Tunneling No No -Undermining/Tunneling No No -Circular Undermining No No -Wound/Ulcer Outcome Not Healed Not Healed -Ulcer Cleansing Rinsed/ Rinsed/ Irrigated with Irrigated with Saline Saline -Foul Odor after Cleansing No No -Bioengineered Tissue No No -Bleeding Controlled with Pressure Pressure -Treatment Response Procedure Procedure Tolerated Well Tolerated Well -Debridement - Subq, 1st 20sq cm Yes Yes Pain Scale: 0-10 Numeric Is Patient Pain Free? Yes Yes - Nurse 3 - General Ulcer D/C NN Start: 09/11/22 10:46 Freq: Status: Active Protocol: Activity Type Activity Date Activity User E-sign Co-sign Detail Recorded Client Recorded Date Recorded By Document 09/11/22 11:44 [email or web address] [id number] 09/11/22 11:45 ALYSSA 09/11/22 11:44 Wound Care Nurse 3 #12 Right lateral foot -Ulcer Cleansing Rinsed/ Irrigated with Saline -Foul Odor after Cleansing No -Primary Dressing Applied C Hydrogel ($), Promogran Kezia Matter -Primary Dressing Covered/Secured with Dry Gauze,Dry Gauze & Roll Gauze,Secured with Tape -Promogran Kezia Matter 1 Right -Tubular Bandage Single Layer -Size of Tubigrip Used Size D -Size D ($) 0 Pain Scale: 0-10 Numeric Is Patient Pain Free? Yes WC - Visit Discharge Discharge Condition Stable Ambulatory Status Walker Transportation Private Auto Clinical Summary of Care Provided Yes Assessment/Plan Assessment/Plan (1) Non-pressure chronic ulcer of other part of right foot with fat layer exposed: CODE(S): L97.512 - Non-pressure chronic ulcer of other part of right foot with fat layer exposed (2) Type 2 diabetes mellitus with peripheral neuropathy: CODE(S): E11.42 - Type 2 diabetes mellitus with diabetic polyneuropathy (3) Diabetic foot ulcer associated with type 2 diabetes mellitus, with fat layer exposed: CODE(S): E11.621 - Type 2 diabetes mellitus with foot ulcer; L97.502 - Non-pressure chronic ulcer of other part of unspecified foot with fat layer exposed QUALIFIERS: Diabetic foot ulcer location: midfoot Laterality: unspecified laterality Qualified Code(s): E11.621 - Type 2 diabetes mellitus with foot ulcer; L97.402 - Non-pressure chronic ulcer of unspecified heel and midfoot with fat layer exposed (4) Xerosis cutis: CODE(S): L85.3 - Xerosis cutis (5) Vitamin D insufficiency: CODE(S): E55.9 - Vitamin D deficiency, unspecified (6) CKD (chronic kidney disease) stage 4, GFR 15-29 ml/min: CODE(S): N18.4 - Chronic kidney disease, stage 4 (severe) (7) Other hereditary and idiopathic neuropathies: CODE(S): G60.8 - Other hereditary and idiopathic neuropathies (8) Obesity: CODE(S): E66.9 - Obesity, unspecified (9) Hypertension: CODE(S): I10 - Essential (primary) hypertension QUALIFIERS: Hypertension type: unspecified Qualified Code(s): I10 - Essential (primary) hypertension (10) Hyperlipidemia: CODE(S): E78.5 - Hyperlipidemia, unspecified QUALIFIERS: Hyperlipidemia type: unspecified Qualified Code(s): E78.5 - Hyperlipidemia, unspecified (11) Lumbar radiculopathy: CODE(S): M54.16 - Radiculopathy, lumbar region PLAN: Plan Patient seen and evaluated She has reopened her previous ulcerative site at the base of the fifth metatarsal of the right foot.? Left foot currently remains healed.? Right foot ulceration measures 1.5 cm x 1.8 cm x 0.1 cm.? Ulcerative site underwent debridement as noted in clinical panel above.? No signs of infection noted. Ulceration demonstrates reduction in size vs previous visit.? Kezia moistened with hydrogel and dry sterile dressing applied to the wound site.? She is to continue to offload in surgical shoe to the right foot with fifth metatarsal base cut out to ensure proper offloading and reduction of pressure. She will also utilize knee scooter for additional offloading.? I discussed that she is not to return to any shoe gear that is not proper diabetic shoe gear with the offloading inserts.? She was seen last week in the office for measurement of new diabetic shoes.? She voices understanding of our discussion here today. Once shoes arrive she will begin wearing these for proper offloading. Encouraged to continue to offload left foot with surgical shoe as she has history of ulceration at the sub 5th metatarsal base. This site remains closed/healed at this time. She has been approved for an epi fix graft beginning 10/02/2022. We will begin application at next visit. Dressing: Kezia, hydrogel, dry sterile dressing, She is to change dressings daily. Wash: Antibacterial soap and water.? Offloading: To heel weightbearing right foot surgical shoe for transfers and short distance otherwise utilize knee scooter.? New diabetic shoes are required, she was seen in office for measurement of diabetic shoes and protective inserts as these are essential to maintain offloading status and prevention of free ulceration. Will transition to diabetic shoes with protective inserts once shoes have arrived. Diagnostic data: The patient has been encouraged to augment her nutritional intake.? She had a recent appointment with her stage hand and her hemoglobin A1c is noted to be 9.1%, this is only a mild improvement down from 9.8%. She has been advised to redouble her efforts at glycemic control, and to collaborate with her primary care physician in this regard.? I stressed the importance of proper sugar control to maintain healing aspect today and proper nutrition supplementation including Lino to aid her healing. Vascular: A noninvasive lower extremity arterial study, performed August 06, 2021, reveals no evidence of significant arterial occlusive disease in the lower extremities.? A venous duplex examination was also performed, revealing no evidence of lower extremity thrombophlebitis.? We will look to update vascular studies. Infection work-up and management: Prior procedures and infectious disease management are noted.? She had a reoccurrence of cellulitis of the right foot in which her cultures that were obtained on 02-26-2021 demonstrated Enterobacter cloacae, strep B, corynebacterium stratum, and anaerobic cocci, and this was negative for MRSA.? She completed a 10-day course of Augmentin and improvement was noted.? Her site is currently demonstrating no signs of infection, however given her history close monitoring for signs of infection is necessary. She was educated on the signs and symptoms of infection today. She was instructed if she notices any redness about the wound margin that moves up the foot/leg, malodor of the wound, purulent drainage from the wound, or if she experiences nausea, vomiting, fever greater than 101 degree, and chills that she is to report straight to the ED as these are progressing signs of infection. She voices understanding of this today. ? I answered all the patient's questions.? To return to the wound healing center in 1 week or call sooner if the patient has any questions or concerns. Note: [employer] speech recognition registered nurse cardiac software was used to create portions of this document. Sound-alike and misspelled words, as well as other registered nurse cardiac errors may be contained in the documentation.
[2022-09-25 10:36] VITALS: BP 127/69; PULSE 71; TEMP 35.7
[2022-10-02 10:34] VITALS: BP 131/56; PULSE 93; RESP 18; TEMP 36.3
--- NOTE | 2022-10-02 12:25 | PCM.WC.PN ---
History of Present Illness Date of Service: 10/02/22 Chief Complaint: Right and left foot ulcer follow-up History of Wound: This is a 66-year-old female who is a known diabetic. She also suffers from diabetic neuropathy. In the past she completed hyperbaric oxygen therapy and reports missing many sessions due to hyperglycemia. She reports she is doing much better now that she has reduced her activity at home. No longer attending HBO sessions. She uses a knee roller to remain nonweightbearing to the right foot. She has been seen for ulcers of both feet and reports decreased drainage. She denies redness, streaking or odor to either foot. She is trying to offload better with bilateral surgical shoes with offloading cut out for the base of the fifth metatarsal. She reports recent reopening of the right subfifth metatarsal base wound secondary to wearing a pair of crocs. She denies fever, chill, nausea, vomiting, purulence or odor. Progress of Wound: remains healed, left Right foot reopened Subjective Subjective Patient is a 66-year-old female who presents to the wound center today for follow-up of a plantar right foot wound.?Her sister aids in daily dressing changes to the foot.? She continues to offload both feet in surgical shoes with plantar offloading.? She has met with endocrinology for continued reduction in her hemoglobin A1c.?Sister notes ulceration is improving. She denies any constitutional symptoms today.? She has no further complaints today. Objective Data Objective Data Vital Signs: Vital Signs Temp Pulse Resp BP 97.3 F L 93 18 131/56 H 10/02/22 10:34 10/02/22 10:34 10/02/22 10:34 10/02/22 10:34 Physical Exam Const alert, oriented x3, no apparent distress and well nourished General Appearance: cooperative HEENT normocephalic Eyes General Eye: normal appearance of both eyes Neck General: normal visual inspection Lymph Lymphatic: no lymphadenopathy noted and no lymphedema noted Resp normal respiratory effort Cardio regular rate and regular rhythm Extremity normal capillary refill, no joint enlargement, no calf tenderness and no pedal edema Extremity Narrative: no cyanosis, no calf tenderness, diminished pulses bilateral muscle wasting noted. Skin no rashes or lesions noted, skin turgor normal and no jaundice Skin Narrative: no purulence, no erythema, no streaking, no odor bilateral.? Adjacent skin is atrophic and thin.? Plantar lateral right foot ulcer reopened with healthy granular bed. Left foot ulcer remains healed.? Her skin in general is xerotic and atrophic Wound Narrative: Plantar lateral subfifth metatarsal base ulceration demonstrates macerated wound margins with healthy red granular bed.? Mild serosanguineous drainage.? No purulent drainage, no malodor, no palpable fluctuance/bogginess, no visible abscess. Neuro moves all extremities Neuro Narrative: lack of normal epicritic sensation via light touch consistent with neuropathy Debridement Note Debridement Note Wound debrided: Sub fifth metatarsal base Laterality: Right Wound Grade/Stage: Henderson stage I Type of Debridement: Excisional debridement Anesthesia Used: 5% Lidocaine Gel Depth: Down to and including healthy tissue and in the subcutaneous layer Percentage of wound debrided: 100 Instrument Used: #15 blade Tissue Removed: Fibrous, devitalized subcutaneous, biofilm, slough Severity: Fat Layer Exposed Amount of bleeding with debridement: Mild Bleeding Controlled with: Compression and gauze Patient tolerated procedure: Patient tolerated procedure well Post-Debridement Measurements and Additional Note: Post-Debridement Measurements/Treatment - Nurse 1 - General Ulcer Assessment Start: 09/11/22 10:46 Freq: Status: Active Protocol: SOBIA Activity Type Activity Date Activity User E-sign Co-sign Detail Recorded Client Recorded Date Recorded By Document 09/11/22 10:46 ALYSSA [id number] 09/11/22 10:51 ALYSSA Document 09/18/22 11:11 DARIN [id number] 09/18/22 11:15 KR Document 09/25/22 10:36 ASHLI [id number] 09/25/22 10:39 AK Document 10/02/22 10:34 ALYSSA [id number] 10/02/22 10:38 ALYSSA 09/11/22 09/18/22 09/25/22 10:46 11:11 10:36 - Today's Visit Information Type of service Follow-up Visit Follow-up Visit Follow-up Visit (Physician/SEDIMENTATIONIST (Physician/SEDIMENTATIONIST (Physician/SEDIMENTATIONIST ) ) ) Arrival Mode Ambulatory, Ambulatory Ambulatory, Walker Wheelchair Accompanied by sister Patient Identification Verified (Name & Yes Yes ) Patient Requires Transmission-Based No No Precautions Finger Stick Blood Sugar(mg/dl) (if 358 indicated): Blood Sugar Vital Signs Temperature (97.8 F-99.1 F) 96.0 F L 97.5 F L 96.3 F L Temperature Source Temporal Temporal Temporal Pulse Rate (60-100) 96 95 71 Pulse Location Monitor Monitor Monitor Respiratory Rate (12-18) 18 Respiratory rate source Observation Blood Pressure (90/60-120/80) 144/66 H 139/66 H 127/69 H Blood Pressure Mean (mm Hg) 92 90 88 Source Manual Monitor Monitor Position Sitting Semi-Fowlers Blood Pressure Location Right Arm Left Arm History Since Last Visit- (Skip if this is Patient's initial visit) Have you changed medications since your No No No last visit? Any new allergies or adverse reactions No No No Had a fall/change in ADL's that may No No No increase risk of falls Signs or symptoms of abuse and/or No No No neglect since last visit Have you been in the hospital since your No No No last visit? Has dressing in place as prescribed Yes Yes Yes Has compression in place as prescribed Yes N/A N/A Has offloadiing in place as prescribed Yes N/A N/A Experienced any changes in pain level or No No No management Left Footwear Removable Cast Regular Shoe Surgical Shoe Walker/Walking with pressure Boot relief insole Right Footwear Surgical Shoe Regular Shoe Surgical Shoe with pressure with pressure relief insole relief insole Pain Scale: 0-10 Numeric Is Patient Pain Free? Yes Yes Yes 10/02/22 10:34 WC - Today's Visit Information Type of service Follow-up Visit (Physician/SEDIMENTATIONIST ) Arrival Mode Ambulatory Accompanied by sister Patient Identification Verified (Name & Yes ) Patient Requires Transmission-Based No Precautions Finger Stick Blood Sugar(mg/dl) (if 354 indicated): Blood Sugar Stated by Patient Vital Signs Temperature (97.8 F-99.1 F) 97.3 F L Temperature Source Temporal Pulse Rate (60-100) 93 Pulse Location Monitor Respiratory Rate (12-18) 18 Respiratory rate source Observation Blood Pressure (90/60-120/80) 131/56 H Blood Pressure Mean (mm Hg) 81 Source Monitor Position Semi-Fowlers Blood Pressure Location Right Arm History Since Last Visit- (Skip if this is Patient's initial visit) Have you changed medications since your No last visit? Any new allergies or adverse reactions No Had a fall/change in ADL's that may No increase risk of falls Signs or symptoms of abuse and/or No neglect since last visit Have you been in the hospital since your No last visit? Has dressing in place as prescribed Yes Has compression in place as prescribed Yes Has offloadiing in place as prescribed Yes Experienced any changes in pain level or No management Left Footwear Surgical Shoe with pressure relief insole Right Footwear Surgical Shoe with pressure relief insole Pain Scale: 0-10 Numeric Is Patient Pain Free? Yes WC - Nurse 1 - General Ulcer Measurement Start: 09/11/22 10:46 Freq: Status: Active Protocol: Activity Type Activity Date Activity User E-sign Co-sign Detail Recorded Client Recorded Date Recorded By Document 09/11/22 10:46 ALYSSA [id number] 09/11/22 10:51 JF Document 09/18/22 11:11 KR [id number] 09/18/22 11:15 KR Document 09/25/22 10:36 AK [id number] 09/25/22 10:39 AK Document 10/02/22 10:34 JF [id number] 10/02/22 10:38 JF 09/11/22 09/18/22 09/25/22 10:46 11:11 10:36 Wound Center Nurse 1 #12 Right lateral foot -Combined with other wound No No -Current Size (cm) - Length 0.8 0.7 0.4 -Current Size (cm) - Width 1.0 2 1.6 -Current Size (cm) - Depth 0.2 0.1 0.1 -Total Square Cm 0.80 1.4 0.64 -Date of Last Picture (Recall this 09/25/22 field) -Photo Taken Yes Yes -Epithelialization Small 1-33% -Tunneling Yes No -Tunneling Position (O'clock) 9 -Tunneling Distance (cm) 0.9 -Undermining/Tunneling No No -Circular Undermining No No -Change in Wound Grade/Stage No -Exudate Amt Small Medium -Exudate Type Serosanguineous Serosanguineous Serosanguineous -Wound Margin Fibrotic Scar, Distinct, Distinct, Thickened Scar Outline Outline Attached Attached -Granulation Amt Small (1-33%) Small (1-33%) Medium (34-66%) -Granulation Quality Pale [place] -Slough/Fibrin No Yes -Necrosis Amt Large (67-100%) Medium (34-66%) -Necrotic Tissue Type Adherent Slough Adherent Slough -Structure Exposed N/A N/A -Texture ([place]-wound Skin Appearance) Assessed,Callus Assessed Assessed,Callus -Moisture ([place]-wound Skin Appearance) Assessed No Abnormality, No Abnormality, Assessed Assessed -Color ([place]-wound Skin Appearance) Assessed No Abnormality, No Abnormality, Assessed Assessed -Temperature ([place]-wound Skin No Abnormality No Abnormality No Abnormality Appearance) (Pt Warm) (Pt Warm) (Pt Warm) -Tenderness on Palpation ([place]-wound No No No Skin Appearance) -Ulcer Cleansing Rinsed/ Rinsed/ Rinsed/ Irrigated with Irrigated with Irrigated with Saline Saline Saline -Foul Odor after Cleansing No No No -Anesthetic Used 4% Lidocaine 5% Lidocaine 5% Lidocaine Solution Gel Gel Lower Limb Edema Present Yes Right Calf (cm) 32.5 Right Ankle (cm) 22.5 10/02/22 10:34 Wound Center Nurse 1 #12 Right lateral foot -Combined with other wound No -Current Size (cm) - Length 0.4 -Current Size (cm) - Width 0.2 -Current Size (cm) - Depth 0.2 -Total Square Cm 0.08 -Date of Last Picture (Recall this field) -Photo Taken Yes -Epithelialization Medium 34-66% -Tunneling No -Tunneling Position (O'clock) -Tunneling Distance (cm) -Undermining/Tunneling No -Circular Undermining No -Change in Wound Grade/Stage -Exudate Amt Small -Exudate Type Serosanguineous -Wound Margin Flat & Intact -Granulation Amt Medium (34-66%) -Granulation Quality Red -Slough/Fibrin Yes -Necrosis Amt Small (1-33%) -Necrotic Tissue Type Adherent Slough -Structure Exposed N/A -Texture ([place]-wound Skin Appearance) Assessed,Callus -Moisture ([place]-wound Skin Appearance) Assessed -Color ([place]-wound Skin Appearance) Assessed -Temperature ([place]-wound Skin No Abnormality Appearance) (Pt Warm) -Tenderness on Palpation ([place]-wound No Skin Appearance) -Ulcer Cleansing Rinsed/ Irrigated with Saline -Foul Odor after Cleansing No -Anesthetic Used 5% Lidocaine Gel Lower Limb Edema Present NA Right Calf (cm) Right Ankle (cm) WC - Nurse 2 - General Ulcer CM Notes Start: 09/11/22 10:46 Freq: Status: Active Protocol: Activity Type Activity Date Activity User E-sign Co-sign Detail Recorded Client Recorded Date Recorded By Document 09/11/22 11:35 PL [id number] 09/11/22 11:36 PL Document 09/18/22 12:10 PL [id number] 09/18/22 12:11 PL Document 09/25/22 13:04 PL [id number] 09/25/22 13:05 PL Document 10/02/22 11:39 PL [id number] 10/02/22 11:41 PL 09/11/22 09/18/22 09/25/22 11:35 12:10 13:04 Wound Center Nurse 2 #12 Right lateral foot -Time 10:55 11:24 10:57 -Correct Patient Yes Yes Yes -Correct Side, Site, Position Yes Yes Yes -Correct Procedure Yes Yes Yes -Procedure Performed Yes Yes Yes -Type of Procedure -Type of Procedure Debridement Debridement Debridement -Clinical Debridement Subcutaneous Subcutaneous Subcutaneous -Tissue Removed Subcutaneous Subcutaneous Subcutaneous -Post Debridement (cm) - Length 1.4 0.7 1.5 -Post Debridement (cm) - Width 2.0 2.0 0.8 -Post Debridement (cm) - Depth 0.1 0.1 0.1 -Total Square (Post) (cm) 2.80 1.40 1.20 -Area of Debridement (cm) - Length 1.4 0.7 1.5 -Area of Debridement (cm) - Width 2.0 2.0 0.8 -Total Square (Area) (cm) 2.80 1.40 1.20 -Tunneling No No No -Undermining/Tunneling No No No -Circular Undermining No No No -Wound/Ulcer Outcome Not Healed Not Healed Not Healed -Ulcer Cleansing Rinsed/ Rinsed/ Rinsed/ Irrigated with Irrigated with Irrigated with Saline Saline Saline -Foul Odor after Cleansing No No No -Bioengineered Tissue No No No -Type of Bioengineered Tissue -Expiration Date -Product Lot Number -Percent Used -Bleeding Controlled with Pressure Pressure Pressure -Treatment Response Procedure Procedure Procedure Tolerated Well Tolerated Well Tolerated Well -Debridement - Subq, 1st 20sq cm Yes Yes Yes -Apply Skin Sub - 1st 25 sq cm - Feet -Epifix 18mm Disc Pain Scale: 0-10 Numeric Is Patient Pain Free? Yes Yes Yes 10/02/22 11:39 Wound Center Nurse 2 #12 Right lateral foot -Time 11:01 -Correct Patient Yes -Correct Side, Site, Position Yes -Correct Procedure Yes -Procedure Performed Yes -Type of Procedure Debridement -Type of Procedure -Clinical Debridement Subcutaneous -Tissue Removed Subcutaneous -Post Debridement (cm) - Length 0.4 -Post Debridement (cm) - Width 0.2 -Post Debridement (cm) - Depth 0.1 -Total Square (Post) (cm) 0.08 -Area of Debridement (cm) - Length 0.4 -Area of Debridement (cm) - Width 0.2 -Total Square (Area) (cm) 0.08 -Tunneling No -Undermining/Tunneling No -Circular Undermining No -Wound/Ulcer Outcome Not Healed -Ulcer Cleansing Rinsed/ Irrigated with Saline -Foul Odor after Cleansing No -Bioengineered Tissue Yes -Type of Bioengineered Tissue Epifix 18mm Disc -Expiration Date 06/07/27 -Product Lot Number [id number] -Percent Used 100 -Bleeding Controlled with Silver Nitrate, Chemical Cauterization ( $) -Treatment Response Procedure Tolerated Well -Debridement - Subq, 1st 20sq cm No -Apply Skin Sub - 1st 25 sq cm - Feet 1 -Epifix 18mm Disc 3 Pain Scale: 0-10 Numeric Is Patient Pain Free? Yes - Nurse 3 - General Ulcer D/C NN Start: 09/11/22 10:46 Freq: Status: Active Protocol: Activity Type Activity Date Activity User E-sign Co-sign Detail Recorded Client Recorded Date Recorded By Document 09/11/22 11:44 [id number] 09/11/22 11:45 Document 09/25/22 11:31 AK [id number] 09/25/22 11:32 AK Document 10/02/22 11:25 AK [id number] 10/02/22 11:26 AK 09/11/22 09/25/22 10/02/22 11:44 11:31 11:25 Wound Care Center Nurse 3 #12 Right lateral foot -Ulcer Cleansing Rinsed/ Rinsed/ Not Cleansed Irrigated with Irrigated with Saline Saline -Foul Odor after Cleansing No No No -Negative Pressure Wound Therapy N/A N/A -Primary Dressing Applied C Hydrogel ($), Promogran Promogran Kezia Matter Kezia Matter -Other Dressing hydrogel ABD -Primary Dressing Covered/Secured with Dry Gauze,Dry Dry Gauze, Dry Gauze & Gauze & Roll Secured with Roll Gauze, Gauze,Secured Tape Secured with with Tape Tape -Promogran Kezia Matter 1 1 bilateral -Lotion applied to leg before No compression wrap -Tubular Bandage Single Layer -Size of Tubigrip Used Size D -Size D ($) 2 Right -Lotion applied to leg before No compression wrap -Tubular Bandage Single Layer -Size of Tubigrip Used Size D -Size D ($) 0 -Other own tubi Pain Scale: 0-10 Numeric Is Patient Pain Free? Yes Yes Yes WC - Visit Discharge Discharge Condition Stable Stable Stable Ambulatory Status Walker Ambulatory, Ambulatory, Walker Walker Transportation Private Auto Private Auto Private Auto Accompanied by sister sister Medication Reconcilliation completed & Yes Yes provided to patient/care provider Clinical Summary of Care Provided Yes Yes Yes Assessment/Plan Assessment/Plan (1) Non-pressure chronic ulcer of other part of right foot with fat layer exposed: CODE(S): L97.512 - Non-pressure chronic ulcer of other part of right foot with fat layer exposed (2) Type 2 diabetes mellitus with peripheral neuropathy: CODE(S): E11.42 - Type 2 diabetes mellitus with diabetic polyneuropathy (3) Diabetic foot ulcer associated with type 2 diabetes mellitus, with fat layer exposed: CODE(S): E11.621 - Type 2 diabetes mellitus with foot ulcer; L97.502 - Non-pressure chronic ulcer of other part of unspecified foot with fat layer exposed QUALIFIERS: Diabetic foot ulcer location: midfoot Laterality: unspecified laterality Qualified Code(s): E11.621 - Type 2 diabetes mellitus with foot ulcer; L97.402 - Non-pressure chronic ulcer of unspecified heel and midfoot with fat layer exposed (4) Xerosis cutis: CODE(S): L85.3 - Xerosis cutis (5) Vitamin D insufficiency: CODE(S): E55.9 - Vitamin D deficiency, unspecified (6) CKD (chronic kidney disease) stage 4, GFR 15-29 ml/min: CODE(S): N18.4 - Chronic kidney disease, stage 4 (severe) (7) Other hereditary and idiopathic neuropathies: CODE(S): G60.8 - Other hereditary and idiopathic neuropathies (8) Obesity: CODE(S): E66.9 - Obesity, unspecified (9) Hypertension: CODE(S): I10 - Essential (primary) hypertension QUALIFIERS: Hypertension type: unspecified Qualified Code(s): I10 - Essential (primary) hypertension (10) Hyperlipidemia: CODE(S): E78.5 - Hyperlipidemia, unspecified QUALIFIERS: Hyperlipidemia type: unspecified Qualified Code(s): E78.5 - Hyperlipidemia, unspecified (11) Lumbar radiculopathy: CODE(S): M54.16 - Radiculopathy, lumbar region PLAN: Plan Patient seen and evaluated She has reopened her previous ulcerative site at the base of the fifth metatarsal of the right foot.? Left foot currently remains healed.? Right foot ulceration measures 0.4 cm x 0.2 cm x 0.1 cm.? Ulcerative site underwent debridement as noted in clinical panel above.? No signs of infection noted. Ulceration demonstrates reduction in size vs previous visit.? She has been approved for epi fix graft beginning 10/02/2022. Epi fix graft #1 applied to ulcerative base and dressed with Adaptic touch and anchored with Steri-Strips, dry sterile dressing. She is to continue to offload in surgical shoe to the right foot with fifth metatarsal base cut out to ensure proper offloading and reduction of pressure. She will also utilize knee scooter for additional offloading.? I discussed that she is not to return to any shoe gear that is not proper diabetic shoe gear with the offloading inserts.? She was seen last week in the office for measurement of new diabetic shoes.? She voices understanding of our discussion here today. Once shoes arrive she will begin wearing these for proper offloading. Encouraged to continue to offload left foot with surgical shoe as she has history of ulceration at the sub 5th metatarsal base. This site remains closed/healed at this time. Dressing: Epi fix graft, Adaptic touch, Steri-Strips, dry sterile dressing. Do not change. May change outer dressings as needed Wash: Do not get wet Offloading: To heel weightbearing right foot surgical shoe for transfers and short distance otherwise utilize knee scooter.? New diabetic shoes are required, she was seen in office for measurement of diabetic shoes and protective inserts as these are essential to maintain offloading status and prevention of free ulceration. Will transition to diabetic shoes with protective inserts once shoes have arrived. Diagnostic data: The patient has been encouraged to augment her nutritional intake.? She had a recent appointment with her financial services associate and her hemoglobin A1c is noted to be 9.1%, this is only a mild improvement down from 9.8%. She has been advised to redouble her efforts at glycemic control, and to collaborate with her primary care physician in this regard.? I stressed the importance of proper sugar control to maintain healing aspect today and proper nutrition supplementation including Lino to aid her healing. Vascular: A noninvasive lower extremity arterial study, performed August 06, 2021, reveals no evidence of significant arterial occlusive disease in the lower extremities.? A venous duplex examination was also performed, revealing no evidence of lower extremity thrombophlebitis.? We will look to update vascular studies. Infection work-up and management: Prior procedures and infectious disease management are noted.? She had a reoccurrence of cellulitis of the right foot in which her cultures that were obtained on 02-26-2021 demonstrated Enterobacter cloacae, strep B, corynebacterium stratum, and anaerobic cocci, and this was negative for MRSA.? She completed a 10-day course of Augmentin and improvement was noted.? Her site is currently demonstrating no signs of infection, however given her history close monitoring for signs of infection is necessary. She was educated on the signs and symptoms of infection today. She was instructed if she notices any redness about the wound margin that moves up the foot/leg, malodor of the wound, purulent drainage from the wound, or if she experiences nausea, vomiting, fever greater than 101 degree, and chills that she is to report straight to the ED as these are progressing signs of infection. She voices understanding of this today. ? I answered all the patient's questions.? To return to the wound healing center in 1 week or call sooner if the patient has any questions or concerns. Note: [employer] speech recognition film or tape librarian software was used to create portions of this document. Sound-alike and misspelled words, as well as other film or tape librarian errors may be contained in the documentation.
== END 2022-10-07 23:59 | disposition home or self-care (01) ==
LOC: WC 10:30
PROVIDERS: PCP Family Medicine; Visit Provider Student in an Organized Health Care Education/Training Program
DX: E11.621 Type 2 diabetes mellitus with foot ulcer (principal); L97.402 Non-pressure chronic ulcer of unspecified heel and midfoot with fat layer exposed; L97.512 Non-pressure chronic ulcer of other part of right foot with fat layer exposed; L97.522 Non-pressure chronic ulcer of other part of left foot with fat layer exposed; E11.22 Type 2 diabetes mellitus with diabetic chronic kidney disease; E11.42 Type 2 diabetes mellitus with diabetic polyneuropathy; N18.4 Chronic kidney disease, stage 4 (severe); E78.5 Hyperlipidemia, unspecified; E55.9 Vitamin D deficiency, unspecified; G60.9 Hereditary and idiopathic neuropathy, unspecified; I12.9 Hypertensive chronic kidney disease with stage 1 through stage 4 chronic kidney disease, or unspecified chronic kidney disease; E66.9 Obesity, unspecified; M54.16 Radiculopathy, lumbar region; L85.3 Xerosis cutis
CPT/HCPCS: 11042; 15275; 17250; Q4186

== ENCOUNTER → 2022-10-08 | Outpatient (CLI) | payer MEDICARE, SELFPAY ==
[2022-10-08 18:01] LABS: Protein, Urine (Random) 91.1 mg/dL (<11.9); Protein:Creat Ratio 1229 mg/g CRE (0-200)
[2022-10-08 18:16] LABS: ALB/GLOB Ratio 0.8 RATIO (0.9-2.4); AST(SGOT) 19 U/L (15-37); Alanine Aminotransfer ALT/SGPT 32 U/L (13-56); Albumin, Serum 3.3 g/dL (3.2-5.0); Alkaline Phosphatase 120 U/L (45-117); Anion Gap 9 (5-15); BUN 45 mg/dL (7-18); BUN/Creat Ratio 24.2 RATIO (10-20); Calcium,Total 9.3 mg/dL (8.5-10.1); Chloride 105 mmol/L (98-107); Creatinine, Serum 1.86 mg/dL (0.55-1.02); EST Glomerular Filtration Rate 29 mL/min (>60); Est Glom Filt Rate - Afr Amer 35 mL/min (>60); Globulin 4.1 g/dL (2.2-4.2); Glucose 348 mg/dL (74-106); Phosphorus 4.2 mg/dL (2.5-4.9); Potassium 5.7 mmol/L (3.5-5.1); Protein, Total 7.4 g/dL (6.4-8.2); Sodium Level 134 mmol/L (136-145)
== END | disposition home or self-care (01) ==
LOC: POLAB3 14:33
PROVIDERS: Nurse Practitioner Family; PCP Family Medicine; Visit Provider Internal Medicine Nephrology
DX: N17.9 Acute kidney failure, unspecified (principal); E11.9 Type 2 diabetes mellitus without complications
CPT/HCPCS: 80053; 82570; 84100; 84156

== ENCOUNTER → 2022-10-10 | Outpatient (CLI) | payer MEDICARE, SELFPAY ==
[2022-10-10 13:38] LABS: ALB/GLOB Ratio 0.9 RATIO (0.9-2.4); AST(SGOT) 24 U/L (15-37); Alanine Aminotransfer ALT/SGPT 37 U/L (13-56); Albumin, Serum 3.7 g/dL (3.2-5.0); Alkaline Phosphatase 123 U/L (45-117); Anion Gap 11 (5-15); BUN 46 mg/dL (7-18); Calcium,Total 9.5 mg/dL (8.5-10.1); Chloride 105 mmol/L (98-107); Creatinine, Serum 1.84 mg/dL (0.55-1.02); EST Glomerular Filtration Rate 29 mL/min (>60); Est Glom Filt Rate - Afr Amer 35 mL/min (>60); Globulin 4.2 g/dL (2.2-4.2); Glucose 310 mg/dL (74-106); Protein, Total 7.9 g/dL (6.4-8.2); Sodium Level 139 mmol/L (136-145)
== END | disposition home or self-care (01) ==
LOC: LAB 11:21
PROVIDERS: PCP Family Medicine; Visit Provider Nurse Practitioner Family
DX: E87.5 Hyperkalemia (principal)
CPT/HCPCS: 36415; 80053

== ENCOUNTER 2022-10-13 12:22 | Inpatient (IN) | payer MEDICARE, SELFPAY ==
[2022-10-13 12:23] VITALS: BP 164/84; PULSE 93; RESP 16; TEMP 36.3; O2SAT 97; BMI 32.9
--- NOTE | 2022-10-13 13:01 | EKG12_ITS ---
Test Reason : ELEVATED POTASIUM Blood Pressure : / mmHG Vent. Rate : 084 BPM Atrial Rate : 084 BPM P-R Int : 140 ms QRS Dur : 080 ms QT Int : 356 ms P-R-T Axes : 055 056 052 degrees QTc Int : 420 ms Normal sinus rhythm Inferior infarct , age undetermined Anteroseptal infarct , age undetermined Abnormal ECG Confirmed by JULIA LINARES, SARAH ([id number]), primer expeditor and drier KATHLEEN WHITNEY ([id number]) on 10/14/2022 8:34:40 AM Referred By: LUL Confirmed By:SARAH DUMONT MD
[2022-10-13 13:17] LABS: Absolute Lymphocyte Count 1.75 X10^3/uL (0.83-4.51); Absolute Neutrophil Count 8.9 X10^3/uL (2.0-7.7); Basophil# 0.08 X10^3/uL; Basophil% 0.7 % (0-1); Eosinophil# 0.23 X10^3/uL; Hematocrit 36.6 % (37-47); Hemoglobin 11.7 g/dL (12.0-15.0); Lymphocyte # 1.75 X10^3/ul (0.83-4.51); Mean Corpuscular Hgb 27.2 pg (27.0-32.0); Mean Corpuscular Volume 85.1 fL (81-99); Mean Platelet Vol. 9.7 fl (6.2-12.0); Monocyte# 0.65 X10^3/uL; Monocyte% 5.6 % (0-10); NRBC Flagged by Analyzer 0 % (0-5); Neutrophil # 8.85 X10^3/uL (2.7-7.7); Neutrophil % 75.8 % (47-70); Platelet Count 353 K/mm3 (150-450); RBC Distribution Width CV 13.4 % (11.6-14.6); RBC Distribution Width SD 41.2 fl (35.1-43.9); White Blood Count 11.7 K/mm3 (4.4-11.0)
[2022-10-13 13:35] LABS: Anion Gap 9 (5-15); BUN 49 mg/dL (7-18); BUN/Creat Ratio 21.7 RATIO (10-20); Calcium,Total 9.6 mg/dL (8.5-10.1); Chloride 105 mmol/L (98-107); Creatinine, Serum 2.26 mg/dL (0.55-1.02); EST Glomerular Filtration Rate 23 mL/min (>60); Est Glom Filt Rate - Afr Amer 28 mL/min (>60); Estimated Creatinine Clearance 19.37 ml/min; Glucose 411 mg/dL (74-106); Sodium Level 134 mmol/L (136-145)
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
[2022-10-13] MEDS: Albuterol *CONC* 2.5mg/0.5mL VIAL.NEB. 10 MG INHALATION (14:12)
[2022-10-13 14:14] VITALS: PULSE 87; RESP 17
[2022-10-13] MEDS: Insulin Lispro 10 UNIT in Syringe 0 ML 6 UNIT IV (14:17)
[2022-10-13] MEDS: 0.9% Normal Saline 1,000 ML 150 ML IV (14:17)
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
[2022-10-13 14:22] VITALS: BP 106/63; PULSE 85; RESP 18; O2SAT 97
[2022-10-13 14:27] VITALS: BP 106/63; PULSE 93; RESP 18; TEMP 36.7; O2SAT 94
[2022-10-13 18:14] VITALS: BP 122/68; PULSE 83; RESP 16; TEMP 36.2; O2SAT 97
[2022-10-13 18:16] VITALS: BMI 32.9
[2022-10-13 18:52] VITALS: PULSE 89
[2022-10-13] MEDS: Sodium Polystyrene Sulfonate 15 GM/60 ML UDC 30 GM PO (20:48)
[2022-10-13] MEDS: 0.9% Normal Saline 1,000 ML 125 ML IV (20:48)
[2022-10-13] MEDS: Calcium Gluconate 1 GM/10 ML Vial IVP (20:49)
[2022-10-13 22:30] LABS: Anion Gap 8 (5-15); BUN 43 mg/dL (7-18); Calcium,Total 9.3 mg/dL (8.5-10.1); Chloride 108 mmol/L (98-107); Creatinine, Serum 1.87 mg/dL (0.55-1.02); EST Glomerular Filtration Rate 29 mL/min (>60); Est Glom Filt Rate - Afr Amer 35 mL/min (>60); Estimated Creatinine Clearance 23.41 ml/min; Glucose 386 mg/dL (74-106); Sodium Level 139 mmol/L (136-145)
[2022-10-13] MEDS: Insulin Lispro 100 UNIT/ML INSULN.PEN SC (23:00)
[2022-10-13 23:21] LABS: Bedside Glucose 377 mg/dL (74-106)
[2022-10-13] MEDS: Ezetimibe 10 MG Tablet PO (23:22)
[2022-10-13] MEDS: Heparin Injection (Vial) 5,000 UNIT/ML VIAL 5000 UNIT SC (23:22)
[2022-10-13] MEDS: amLODIPine 10 MG Tablet PO (23:22)
[2022-10-13] MEDS: Gabapentin 300 MG Capsule PO (23:32)
[2022-10-14 01:21] VITALS: BP 145/76; PULSE 81; RESP 13; TEMP 36.6; O2SAT 99
[2022-10-14 03:13] LABS: Anion Gap 8 (5-15); BUN 43 mg/dL (7-18); BUN/Creat Ratio 25.4 RATIO (10-20); Chloride 109 mmol/L (98-107); Creatinine, Serum 1.69 mg/dL (0.55-1.02); EST Glomerular Filtration Rate 32 mL/min (>60); Est Glom Filt Rate - Afr Amer 39 mL/min (>60); Glucose 246 mg/dL (74-106); Potassium 4.7 mmol/L (3.5-5.1); Sodium Level 140 mmol/L (136-145)
[2022-10-14 06:01] LABS: Absolute Lymphocyte Count 2.15 X10^3/uL (0.83-4.51); Absolute Neutrophil Count 5.4 X10^3/uL (2.0-7.7); Basophil# 0.04 X10^3/uL; Basophil% 0.5 % (0-1); Eosinophil# 0.26 X10^3/uL; Eosinophils% 3.1 % (0-5); Hematocrit 33.1 % (37-47); Hemoglobin 10.4 g/dL (12.0-15.0); Lymphocyte # 2.15 X10^3/ul (0.83-4.51); Lymphocyte % 25.6 % (19-41); Mean Corp Hgb Conc 31.4 g/dL (32-36); Mean Corpuscular Hgb 27.1 pg (27.0-32.0); Mean Corpuscular Volume 86.2 fL (81-99); Mean Platelet Vol. 9.2 fl (6.2-12.0); Monocyte# 0.46 X10^3/uL; Monocyte% 5.5 % (0-10); NRBC Flagged by Analyzer 0 % (0-5); Neutrophil # 5.42 X10^3/uL (2.7-7.7); Neutrophil % 64.5 % (47-70); Platelet Count 322 K/mm3 (150-450); RBC Distribution Width CV 13.5 % (11.6-14.6); RBC Distribution Width SD 41.5 fl (35.1-43.9); Red Blood Count 3.84 M/mm3 (4.2-5.4); White Blood Count 8.4 K/mm3 (4.4-11.0)
[2022-10-14 06:46] LABS: ALB/GLOB Ratio 0.8 RATIO (0.9-2.4); AST(SGOT) 20 U/L (15-37); Alanine Aminotransfer ALT/SGPT 29 U/L (13-56); Albumin, Serum 3.1 g/dL (3.2-5.0); Alkaline Phosphatase 108 U/L (45-117); Anion Gap 7 (5-15); BUN 41 mg/dL (7-18); BUN/Creat Ratio 24.3 RATIO (10-20); Calcium,Total 8.9 mg/dL (8.5-10.1); Chloride 109 mmol/L (98-107); Creatinine, Serum 1.69 mg/dL (0.55-1.02); EST Glomerular Filtration Rate 32 mL/min (>60); Est Glom Filt Rate - Afr Amer 39 mL/min (>60); Globulin 3.7 g/dL (2.2-4.2); Glucose 290 mg/dL (74-106); Potassium 4.9 mmol/L (3.5-5.1); Protein, Total 6.8 g/dL (6.4-8.2); Sodium Level 141 mmol/L (136-145)
[2022-10-14 08:20] LABS: Bedside Glucose 302 mg/dL (74-106)
[2022-10-14 08:48] VITALS: BP 140/71; PULSE 89; RESP 16; TEMP 36.7; O2SAT 95
[2022-10-14] MEDS: Insulin Lispro 100 UNIT/ML INSULN.PEN SC ×2 (08:51→12:15)
[2022-10-14] MEDS: Ascorbic Acid 500 MG Tablet 1000 MG PO (08:51)
[2022-10-14] MEDS: Pantoprazole Sodium 20 MG Tablet PO (08:52)
[2022-10-14] MEDS: Aspirin E.C. 81 MG Tablet PO (08:52)
[2022-10-14] MEDS: Loratadine 10 MG Tablet PO (08:52)
--- NOTE | 2022-10-14 12:00 | CASEMGMT ---
ROSELYN GUTIERREZ DC Planning Assessment: Face to Face with patient for initial transition planning/care coordination assessment. Pt alert and oriented x4. ROSELYN GUTIERREZ introduced self and role at [facility], pt voices understanding and is agreeable to participating in assessment. Care providers, pharmacy, and demographics verified. Admitting Dx: hypokalemia PCP: Sydnie Specialists: Angel (podiatry), Jordan (dermatology), Mariya Urrutia NP (endocrinology), [facility] [place] Preferred Pharmacy: [facility] Insurance: [facility] Prescription Benefit: yes Living Will/HPOA: None LNOK: Sister Pat Living Arrangements: Pt lives alone in a single story home with 4 steps to enter with a handrail. Pt states she is independent with ADLs including self care and oil extractor. Pt's sister assists her intermittently if needed. Transportation: Pt does not drive at this time due to cataracts and subsequent cataract surgery. States her sister transports her as needed. DME: tub bench, rollator, glucometer (checks her blood glu twice daily), HHC: current with [facility] for SN for wound care SNF: denies. Plan: Pt plans to return home with the support of her sister and resumption of her home health care SN services. Pt remains active with the wound center and has an appointment on 10/16. Resumption of care order placed for resumption of SN services at discharge. Call placed to Nubia at [facility] to notify of pt's expected DC on this date, confidential voicemail received and message left with this information. Janeen Vegas RN CM
[2022-10-14 12:15] LABS: Bedside Glucose 312 mg/dL (74-106)
--- NOTE | 2022-10-14 13:28 | PCM.DC.SUM ---
Providers Date of Admission: 10/13/22 Date of Discharge: 10/14/22 Primary Care Physician: Dr. Hever Otoole, Consultations 10/13/22 18:56 Consult: Onc/Wound/director multimedia Routine Comment: Reason for Consult:: BL LE diabetic wounds Reason For Visit: HYPERKALEMIA Diagnosis Discharge Diagnosis (1) Hyperkalemia: Status: Acute Code(s): E87.5 - Hyperkalemia Medications at Discharge Home Medications aspirin 81 mg tablet,delayed release (Adult Low Dose Aspirin) 81 mg PO DAILY 07/16/20 ascorbic acid (vitamin C) 1,000 mg capsule 1 g PO DAILY 04/14/22 loratadine 10 mg tablet (Allergy Relief (loratadine)) 10 mg PO DAILY 04/14/22 vitamins A,C,B-baqr-nwcfzd 4,296 mcg-226 mg-90 mg capsule (ICaps AREDS) 1 cap PO BID 04/14/22 amlodipine 10 mg tablet 10 mg PO DAILY #90 tabs 06/23/22 ezetimibe 10 mg tablet 10 mg PO DAILY #30 tabs 06/23/22 dulaglutide 1.5 mg/0.5 mL subcutaneous pen injector (Trulicity) 1.5 mg (0.5 mL) subcut QWEEK #2 mL 09/17/22 Humalog Mix 50-50 KwikPen U-100 Insulin 100 unit/mL subcutaneous pen (insulin lispro protamin-lispro) 60 unit (0.6 mL) subcut BID #36 mL 09/22/22 cholecalciferol (vitamin D3) 50 mcg (2,000 unit) capsule 50 mcg PO DAILY 10/09/22 gabapentin 300 mg tablet 300 mg PO BID neuorpathy 10/13/22 glucosamine-chondroitin 250 mg-200 mg tablet (Osteo Bi-Flex) 2 tab PO DAILY SUPPLEMENT 10/13/22 omeprazole 20 mg capsule,delayed release 20 mg PO DAILY GERD 10/13/22 Hospital Course Operations None Procedures None Summary of Care Provided Minutes Spent on Discharge: 25 Hospital Course: Ms. Hamm is a 66-year-old white female who presents emergency department at [facility] on 10/13/2022 for abnormal labs. She had a BMP that was drawn on Thursday by her machine adjuster leader case trim and was called on Thursday morning and instructed to go to the emergency department because her potassium level was 6. The specimen was nonhemolyzed. The patient was completely asymptomatic and reported the emergency department she felt fine despite her abnormal lab. EKG did show sinus rhythm with mildly peaked T waves. She was treated the emergency department with 1 L normal saline and then placed on maintenance fluids, given albuterol inhalation times once and insulin 10 units IV x1 dose. She was also treated with Kayexalate x1 dose. The patient reported that she was on an ARB, Aldactone, and another medication that could cause hyperkalemia all of which were stopped by her soloist dancer. Her renal function was also noted to be a bit higher than her baseline at 2.26 on presentation. It appears her baseline is 1.7-1.9. She does follow with Dr. Merritt as an outpatient. With the treatments given her potassium decreased and was 4.9 at the time of discharge. Her serum creatinine improved to 1.67 and the patient continued to feel well. We did give her education on a low potassium diet and instructed her to utilize a renal/carb control/cardiac diet. I also asked her to get a follow-up BMP in a week to assure that her potassium level is staying normalized with the discontinuation of the above offending medications. Patient voiced understanding however she was disappointed that she is not too fond of having needlesticks. She did indicate she would call her primary care physician or her soloist dancer for follow-up lab. She was discharged home in stable condition on 10/14/2022. Discharge diagnoses: Acute hyperkalemia-resolved History of diabetic foot wounds History of bilateral foot osteomyelitis DM-2-poorly controlled Chronic Citic anemia Hypertension Hyperlipidemia CKD stage IIIb-IV--> renal function does seem to fluctuate Obesity GERD Allergic rhinitis Physical Exam Const alert, oriented x3, no apparent distress and well nourished Constitutional Narrative: Obese, upper middle-aged white female, sitting up in bed, appears comfortable and nontoxic, watching television, states she just ordered lunch, anxious to go home, patient states she feels fine General Appearance: cooperative, comfortable, well kempt and well developed Orientation / Consciousness: awake, oriented to person, oriented to place and oriented to time Exam Limitations: no limitations Nutritional Appearance: obese HEENT normocephalic, head/scalp atraumatic, hearing grossly normal bilaterally and moist oral mucous membranes Resp normal respiratory effort, no retractions, no use of accessory muscles and clear to auscultation bilaterally Cardio regular rate, regular rhythm, S1 normal heart sound, S2 normal heart sound, no murmurs, no rub, no gallops and no clicks GI normal to inspection, nondistended, normoactive bowel sounds, soft to palpation and non-tender Extremity no clubbing, cyanosis or edema Skin no rashes or lesions noted, no wounds, skin turgor normal and no jaundice Neuro oriented x3, CN's II-XII intact bilaterally, moves all extremities and no focal motor deficits Speech: speech normal Psych affect normal Psych Narrative: Very pleasant, appropriately interactive Weight / BMI Weight Weight: 81.647 kg Body Mass Index (BMI) 32.9 ABG / Lab / Microbiology Data Result Diagrams: 10/14/22 05:50 10/14/22 05:50 Laboratory: Laboratory Results - last 24 hr 10/13/22 13:10: Sodium 134 L, Potassium 6.0 H*, Chloride 105, Carbon Dioxide 20.0 L, Anion Gap 9, BUN 49 H, Creatinine 2.26 H, Estim Creat Clear Calc 19.37, Est GFR (MDRD) Af Amer 28 L, Est GFR (MDRD) Non-Af 23 L, BUN/Creatinine Ratio 21.7 H, Glucose 411 H, Calcium 9.6 10/13/22 13:10: Magnesium 2.0 10/13/22 20:50: POC Glucose 377 H 10/13/22 21:59: Sodium 139, Potassium 5.0, Chloride 108 H, Carbon Dioxide 23.0, Anion Gap 8, BUN 43 H, Creatinine 1.87 H, Estim Creat Clear Calc 23.41, Est GFR (MDRD) Af Amer 35 L, Est GFR (MDRD) Non-Af 29 L, BUN/Creatinine Ratio 23.0 H, Glucose 386 H, Calcium 9.3 10/14/22 02:50: Sodium 140, Potassium 4.7, Chloride 109 H, Carbon Dioxide 23.0, Anion Gap 8, BUN 43 H, Creatinine 1.69 H, Estim Creat Clear Calc 25.90, Est GFR (MDRD) Af Amer 39 L, Est GFR (MDRD) Non-Af 32 L, BUN/Creatinine Ratio 25.4 H, Glucose 246 H, Calcium 9.0 10/14/22 05:50: WBC 8.4, RBC 3.84 L, Hgb 10.4 L, Hct 33.1 L, MCV 86.2, MCH 27.1, MCHC 31.4 L, RDW Std Deviation 41.5, RDW Coeff of Steven 13.5, Plt Count 322, MPV 9.2, Immature Gran % (Auto) 0.800, Neut % (Auto) 64.5, Lymph % (Auto) 25.6, [place] % (Auto) 5.5, Eos % (Auto) 3.1, Baso % (Auto) 0.5, Absolute Neuts (auto) 5.4, Absolute Lymphs (auto) 2.15, Nucleated RBC % 0 10/14/22 05:50: Sodium 141, Potassium 4.9, Chloride 109 H, Carbon Dioxide 25.0, Anion Gap 7, BUN 41 H, Creatinine 1.69 H, Estim Creat Clear Calc 25.90, Est GFR (MDRD) Af Amer 39 L, Est GFR (MDRD) Non-Af 32 L, BUN/Creatinine Ratio 24.3 H, Glucose 290 H, Calcium 8.9, Total Bilirubin 0.20, AST 20, ALT 29, Alkaline Phosphatase 108, Total Protein 6.8, Albumin 3.1 L, Globulin 3.7, Albumin/Globulin Ratio 0.8 L 10/14/22 08:02: POC Glucose 302 H 10/14/22 11:53: POC Glucose 312 H D/C Instructions Discharge Diet: Low fat / Low cholesterol, 1800 Calorie Control Diet and Renal Diet Discharge Activity: Return to Normal Activity Meaningful Use Info Meaningful Use Diagnoses (Choose all that apply): None applicable Discharge Plan Admission Admit Date/Time: 10/13/22 14:29 Primary Reason for Your Visit: Abnormal lab-hyperkalemia Attending Provider: Lizbet Merritt Primary Care Provider: Hever Otoole Consulting Providers: Aiyana Porter Instructions Patient Instructions: Low Potassium Diet Dc Additional Instructions / Restrictions: 1. Please call your primary care physician or soloist dancer to obtain a follow-up basic metabolic profile to be done in 1 week per our discussion prior to discharge Discharge Orders/Prescriptions Prescriptions: Continued aspirin [Adult Low Dose Aspirin] 81 mg tablet,delayed release (DR/EC) 81 mg PO DAILY loratadine [Allergy Relief (loratadine)] 10 mg tablet 10 mg PO DAILY ascorbic acid (vitamin C) 1,000 mg capsule 1 g PO DAILY ICaps AREDS 14,320-226-200 jqvb-oh-mxwo capsule 1 cap PO BID ezetimibe 10 mg tablet 10 mg PO DAILY Qty: 30 5RF amlodipine 10 mg tablet 10 mg PO DAILY Qty: 90 1RF Trulicity 1.5 mg/0.5 mL pen injector 1.5 mg subcut QWEEK Qty: 2 5RF omeprazole 20 mg Capsule,Delayed Release(Dr/Ec) 20 mg PO DAILY glucosamine-chondroitin [Osteo Bi-Flex] 250-200 mg Tablet 2 tab PO DAILY gabapentin 300 mg Tablet 300 mg PO BID Humalog Mix 50-50 KwikPen 100 unit/mL (50-50) insulin pen 60 unit subcut BID Qty: 36 3RF cholecalciferol (vitamin D3) 50 mcg (2,000 unit) capsule 50 mcg PO DAILY Referrals / Follow Up: Padma Merritt DO [Med Staff - Consulting] - See Referral Note (As scheduled) Hever Otoole DO [Primary Care Provider] - Within 1 Week Disposition Disposition (needs filled in before D/C Order can be placed): Home, Self Care Charges/Coding Visit Charges Inpatient E&M: 47525 Disch Hosp
[2022-10-14 14:37] VITALS: BP 142/76; PULSE 91; RESP 16; O2SAT 96
--- NOTE | 2022-10-14 14:37 | PHA.DC.MR ---
Pharmacy Service has performed discharge medication reconciliation for this patient. The patient's discharge medication list was reviewed for discrepancies and discrepancies were resolved. Home Medications aspirin 81 mg tablet,delayed release (Adult Low Dose Aspirin) 81 mg PO DAILY 07/16/20 ascorbic acid (vitamin C) 1,000 mg capsule 1 g PO DAILY 04/14/22 loratadine 10 mg tablet (Allergy Relief (loratadine)) 10 mg PO DAILY 04/14/22 vitamins A,C,O-umpo-zmwnzh 4,296 mcg-226 mg-90 mg capsule (ICaps AREDS) 1 cap PO BID 04/14/22 amlodipine 10 mg tablet 10 mg PO DAILY #90 tabs 06/23/22 ezetimibe 10 mg tablet 10 mg PO DAILY #30 tabs 06/23/22 dulaglutide 1.5 mg/0.5 mL subcutaneous pen injector (Trulicity) 1.5 mg (0.5 mL) subcut QWEEK #2 mL 09/17/22 Humalog Mix 50-50 KwikPen U-100 Insulin 100 unit/mL subcutaneous pen (insulin lispro protamin-lispro) 60 unit (0.6 mL) subcut BID #36 mL 09/22/22 cholecalciferol (vitamin D3) 50 mcg (2,000 unit) capsule 50 mcg PO DAILY 10/09/22 gabapentin 300 mg tablet 300 mg PO BID neuorpathy 10/13/22 glucosamine-chondroitin 250 mg-200 mg tablet (Osteo Bi-Flex) 2 tab PO DAILY SUPPLEMENT 10/13/22 omeprazole 20 mg capsule,delayed release 20 mg PO DAILY GERD 10/13/22
== END 2022-10-14 14:39 | disposition home or self-care (01) | DRG 641 ==
LOC: ED 14:43 → PCU 17:54
PROVIDERS: Admitting Provider Family Medicine; Emergency Provider Emergency Medicine; PCP Family Medicine; Visit Provider Internal Medicine
DX: E87.5 Hyperkalemia (principal); N18.4 Chronic kidney disease, stage 4 (severe); E11.22 Type 2 diabetes mellitus with diabetic chronic kidney disease; E11.42 Type 2 diabetes mellitus with diabetic polyneuropathy; E11.65 Type 2 diabetes mellitus with hyperglycemia; Z79.4 Long term (current) use of insulin; J30.9 Allergic rhinitis, unspecified; K21.9 Gastro-esophageal reflux disease without esophagitis; M54.16 Radiculopathy, lumbar region; I12.9 Hypertensive chronic kidney disease with stage 1 through stage 4 chronic kidney disease, or unspecified chronic kidney disease; E78.5 Hyperlipidemia, unspecified; Z79.82 Long term (current) use of aspirin; Z80.0 Family history of malignant neoplasm of digestive organs; E66.9 Obesity, unspecified
CPT/HCPCS: 36415; 80048; 80053; 82962; 83735; 85025; 93005; 94640; 99285; J7030; J7040; A4216; J0610

== ENCOUNTER → 2022-10-16 | Outpatient (CLI) | payer MEDICARE, SELFPAY ==
--- NOTE | 2022-10-16 12:52 | US_ITS ---
STUDY: RENAL ULTRASOUND - COMPLETE REASON FOR EXAM: Female, 66 years old. CKD TECHNIQUE: Ultrasound evaluation of the kidneys was performed with real-time and static cuba-scale imaging. COMPARISON: None. FINDINGS: RIGHT KIDNEY: Normal location of the right kidney, which is normal in size. The right kidney measures 11 cm x 5.1 cm x 4.7 cm. There is a normal cortex of the right kidney. The renal cortex measures 1.6 cm. There is no right renal mass or cyst. There are no right renal calculi. There is no right hydronephrosis. DISTAL RIGHT URETER: There is non-visualization of the distal right ureter. There is no demonstrated right ureterovesical junction calculus. There is a visualized right ureteral jet. LEFT KIDNEY: with mild renal atrophy. The left kidney measures 9.1 cm x 5.3 cm x 5 cm. There is a normal cortex of the left kidney. The renal cortex measures 1.5 cm. There is no left renal mass or cyst. There are no left renal calculi. There is no left hydronephrosis. DISTAL LEFT URETER: There is non-visualization of the distal left ureter. There is no demonstrated left ureterovesical junction calculus. There is no demonstrated left ureteral jet. BLADDER: The distended urinary bladder has a volume of 74 ml. There is a normal wall thickness of the distended urinary bladder. There is no demonstrated mass within the urinary bladder. There are no demonstrated bladder calculi. US/Kidney and Bladder IMPRESSION: Mild degree of atrophy of the left kidney. Electronically Signed: Ibrahima Gutierrez MD at 14:44 EST ,
== END | disposition home or self-care (01) ==
PROVIDERS: PCP Family Medicine; Referring Provider Internal Medicine Nephrology; Visit Provider Internal Medicine Nephrology
DX: N18.32 Chronic kidney disease, stage 3b (principal)
CPT/HCPCS: 76770; 99213; G0463

== ENCOUNTER → 2022-10-22 | Outpatient (CLI) | payer MEDICARE, SELFPAY ==
[2022-10-22 17:41] LABS: Hematocrit 36.8 % (37-47); Hemoglobin 11.7 g/dL (12.0-15.0); Mean Corp Hgb Conc 31.8 g/dL (32-36); Mean Corpuscular Hgb 27.3 pg (27.0-32.0); Mean Corpuscular Volume 85.8 fL (81-99); Mean Platelet Vol. 11.1 fl (6.2-12.0); Platelet Count 300 K/mm3 (150-450); RBC Distribution Width CV 13.8 % (11.6-14.6); RBC Distribution Width SD 42.5 fl (35.1-43.9); Red Blood Count 4.29 M/mm3 (4.2-5.4); White Blood Count 8.6 K/mm3 (4.4-11.0)
[2022-10-22 18:12] LABS: AST(SGOT) 22 U/L (15-37); Alanine Aminotransfer ALT/SGPT 33 U/L (13-56); Albumin, Serum 3.7 g/dL (3.2-5.0); Alkaline Phosphatase 123 U/L (45-117); Anion Gap 10 (5-15); BUN 35 mg/dL (7-18); BUN/Creat Ratio 19.7 RATIO (10-20); Calcium,Total 9.8 mg/dL (8.5-10.1); Chloride 102 mmol/L (98-107); Creatinine, Serum 1.78 mg/dL (0.55-1.02); EST Glomerular Filtration Rate 30 mL/min (>60); Est Glom Filt Rate - Afr Amer 37 mL/min (>60); Globulin 3.8 g/dL (2.2-4.2); Glucose 396 mg/dL (74-106); Potassium 4.5 mmol/L (3.5-5.1); Protein, Total 7.5 g/dL (6.4-8.2); Sodium Level 136 mmol/L (136-145)
[2022-10-23 08:50] LABS: PTHIN 15.7 pg/mL (18.4-80.1)
== END | disposition home or self-care (01) ==
LOC: POLAB3 12:05
PROVIDERS: Nurse Practitioner Family; PCP Family Medicine; Visit Provider Internal Medicine Nephrology
DX: N18.32 Chronic kidney disease, stage 3b (principal); E87.5 Hyperkalemia
CPT/HCPCS: 36415; 80053; 83970; 84100; 85027

== ENCOUNTER 2022-10-30 10:45 | Outpatient (RCR) | payer MEDICARE, SELFPAY ==
[2022-10-08 00:18] VITALS: BP 131/56; PULSE 93; RESP 18; TEMP 36.3
[2022-10-09 10:44] VITALS: BP 151/73; PULSE 93; RESP 18; TEMP 36.2
--- NOTE | 2022-10-09 10:49 | PN.PCM_ITS ---
History of Present Illness Date of Service: 10/09/22 Chief Complaint: Right and left foot ulcer follow-up History of Wound: This is a 66-year-old female who is a known diabetic. She also suffers from diabetic neuropathy. In the past she completed hyperbaric oxygen therapy and reports missing many sessions due to hyperglycemia. She reports she is doing much better now that she has reduced her activity at home. No longer attending HBO sessions. She uses a knee roller to remain nonweightbearing to the right foot. She has been seen for ulcers of both feet and reports decreased drainage. She denies redness, streaking or odor to either foot. She is trying to offload better with bilateral surgical shoes with offloading cut out for the base of the fifth metatarsal. She reports recent reopening of the right subfifth metatarsal base wound secondary to wearing a pair of crocs. She denies fever, chill, nausea, vomiting, purulence or odor. Progress of Wound: remains healed, left Right foot reopened Subjective Subjective Patient is a 66-year-old female who presents to the wound center today for follow-up of a plantar right foot wound.?Her sister aids in daily dressing changes to the foot.?She continues to offload both feet in surgical shoes with plantar offloading.?She has met with endocrinology for continued reduction in her hemoglobin A1c.?Sister notes ulceration is improving. She states it seems like her foot is rolling to the outside more. She denies any constitutional symptoms today.? She has no further complaints today. Objective Data Objective Data Vital Signs: Vital Signs Temp Pulse Resp BP 97.1 F L 93 18 151/73 H 10/09/22 10:44 10/09/22 10:44 10/09/22 10:44 10/09/22 10:44 Physical Exam Const alert, oriented x3 and no apparent distress General Appearance: cooperative HEENT normocephalic Eyes General Eye: normal appearance of both eyes Neck General: normal visual inspection Lymph Lymphatic: no lymphadenopathy noted and no lymphedema noted Resp normal respiratory effort Cardio regular rate and regular rhythm Extremity normal capillary refill, no joint enlargement, no calf tenderness and no pedal edema Extremity Narrative: no cyanosis, no calf tenderness, diminished pulses bilateral muscle wasting noted. Skin no rashes or lesions noted, skin turgor normal and no jaundice Skin Narrative: no purulence, no erythema, no streaking, no odor bilateral.? Adjacent skin is atrophic and thin.? Plantar lateral right foot ulcer reopened with healthy granular bed. Left foot ulcer remains healed.? Her skin in general is xerotic and atrophic Wound Narrative: Plantar lateral subfifth metatarsal base ulceration demonstrates macerated wound margins with healthy red granular bed.? Mild serosanguineous drainage.? No purulent drainage, no malodor, no palpable fluctuance/bogginess, no visible abscess. Neuro moves all extremities Neuro Narrative: lack of normal epicritic sensation via light touch consistent with neuropathy Debridement Note Debridement Note Wound debrided: Sub fifth metatarsal base Laterality: Right Wound Grade/Stage: Henderson stage I Type of Debridement: Excisional debridement Anesthesia Used: 5% Lidocaine Gel Depth: Down to and including healthy tissue and in the subcutaneous layer Percentage of wound debrided: 100 Instrument Used: 3mm curette Tissue Removed: Fibrous, devitalized subcutaneous, biofilm, slough Severity: Fat Layer Exposed Amount of bleeding with debridement: Mild Bleeding Controlled with: Compression and gauze Patient tolerated procedure: Patient tolerated procedure well Post-Debridement Measurements and Additional Note: Post-Debridement Measurements/Treatment - Nurse 1 - General Ulcer Assessment Start: 10/09/22 10:43 Freq: Status: Active Protocol: SOBIA Activity Type Activity Date Activity User E-sign Co-sign Detail Recorded Client Recorded Date Recorded By Document 10/09/22 10:44 ALYSSA [id number] 10/09/22 10:46 ALYSSA 10/09/22 10:44 - Today's Visit Information Type of service Follow-up Visit (Physician/EXCHANGE TELLER ) Arrival Mode Ambulatory, Walker Finger Stick Blood Sugar(mg/dl) (if 345 indicated): Blood Sugar Stated by Patient Vital Signs Temperature (97.8 F-99.1 F) 97.1 F L Temperature Source Temporal Pulse Rate (60-100) 93 Pulse Location Monitor Respiratory Rate (12-18) 18 Respiratory rate source Observation Blood Pressure (90/60-120/80) 151/73 H Blood Pressure Mean (mm Hg) 99 Source Monitor Position Semi-Fowlers Blood Pressure Location Left Arm History Since Last Visit- (Skip if this is Patient's initial visit) Have you changed medications since your Yes last visit? Any new allergies or adverse reactions No Had a fall/change in ADL's that may No increase risk of falls Signs or symptoms of abuse and/or No neglect since last visit Have you been in the hospital since your No last visit? Has dressing in place as prescribed Yes Has compression in place as prescribed Yes Has offloadiing in place as prescribed Yes Experienced any changes in pain level or No management Left Footwear Surgical Shoe with pressure relief insole Right Footwear Surgical Shoe with pressure relief insole Pain Scale: 0-10 Numeric Is Patient Pain Free? Yes WC - Nurse 1 - General Ulcer Measurement Start: 10/09/22 10:43 Freq: Status: Active Protocol: Activity Type Activity Date Activity User E-sign Co-sign Detail Recorded Client Recorded Date Recorded By Document 10/09/22 10:44 ALYSSA [id number] 10/09/22 10:46 ALYSSA 10/09/22 10:44 Wound Center Nurse 1 #12 Right lateral foot -Combined with other wound No -Current Size (cm) - Length 0.4 -Current Size (cm) - Width 0.5 -Current Size (cm) - Depth 0.1 -Total Square Cm 0.20 -Photo Taken Yes -Epithelialization Medium 34-66% -Tunneling No -Undermining/Tunneling No -Circular Undermining No -Exudate Amt Small -Exudate Type Serosanguineous -Wound Margin Flat & Intact -Granulation Amt Medium (34-66%) -Granulation Quality Red -Slough/Fibrin Yes -Necrosis Amt Small (1-33%) -Necrotic Tissue Type Adherent Slough -Structure Exposed N/A -Texture (Toyin-wound Skin Appearance) Assessed -Moisture (Toyin-wound Skin Appearance) Assessed -Color (Toyin-wound Skin Appearance) Assessed -Temperature ([place]oy[place]-wound Skin No Abnormality Appearance) (Pt Warm) -Tenderness on Palpation ([place]oyin-wound No Skin Appearance) -Ulcer Cleansing Rinsed/ Irrigated with Saline -Foul Odor after Cleansing No -Anesthetic Used 5% Lidocaine Gel Lower Limb Edema Present NA Assessment/Plan Assessment/Plan (1) Non-pressure chronic ulcer of other part of right foot with fat layer exposed: CODE(S): L97.512 - Non-pressure chronic ulcer of other part of right foot with fat layer exposed (2) Type 2 diabetes mellitus with peripheral neuropathy: CODE(S): E11.42 - Type 2 diabetes mellitus with diabetic polyneuropathy (3) Diabetic foot ulcer associated with type 2 diabetes mellitus, with fat layer exposed: CODE(S): E11.621 - Type 2 diabetes mellitus with foot ulcer; L97.502 - Non-pressure chronic ulcer of other part of unspecified foot with fat layer exposed QUALIFIERS: Diabetic foot ulcer location: midfoot Laterality: unspecified laterality Qualified Code(s): E11.621 - Type 2 diabetes mellitus with foot ulcer; L97.402 - Non-pressure chronic ulcer of unspecified heel and midfoot with fat layer exposed (4) Xerosis cutis: CODE(S): L85.3 - Xerosis cutis (5) Vitamin D insufficiency: CODE(S): E55.9 - Vitamin D deficiency, unspecified (6) CKD (chronic kidney disease) stage 4, GFR 15-29 ml/min: CODE(S): N18.4 - Chronic kidney disease, stage 4 (severe) (7) Other hereditary and idiopathic neuropathies: CODE(S): G60.8 - Other hereditary and idiopathic neuropathies (8) Obesity: CODE(S): E66.9 - Obesity, unspecified (9) Hypertension: CODE(S): I10 - Essential (primary) hypertension QUALIFIERS: Hypertension type: unspecified Qualified Code(s): I10 - Essential (primary) hypertension (10) Hyperlipidemia: CODE(S): E78.5 - Hyperlipidemia, unspecified QUALIFIERS: Hyperlipidemia type: unspecified Qualified Code(s): E78.5 - Hyperlipidemia, unspecified (11) Lumbar radiculopathy: CODE(S): M54.16 - Radiculopathy, lumbar region PLAN: Plan Patient seen and evaluated She has reopened her previous ulcerative site at the base of the fifth metatarsal of the right foot.? Left foot currently remains healed.? Right foot ulceration measures 0.2 cm x 0.2 cm x 0.1 cm.? Ulcerative site underwent debridement as noted in clinical panel above.? No signs of infection noted. Ulceration demonstrates reduction in size vs previous visit.? She has been approved for epi fix graft beginning 10/02/2022.? Epi fix graft #2 applied to ulcerative base and dressed with Adaptic touch and anchored with Steri-Strips, dry sterile dressing. She is to continue to offload in surgical shoe to the right foot with fifth metatarsal base cut out to ensure proper offloading and reduction of pressure. She will also utilize knee scooter for additional offloading.? I discussed that she is not to return to any shoe gear that is not proper diabetic shoe gear with the offloading inserts.? She was seen in the office for measurement of new diabetic shoes.? She voices understanding of our discussion here today. Once shoes arrive she will begin wearing these for proper offloading. Encouraged to continue to offload left foot with surgical shoe as she has history of ulceration at the sub 5th metatarsal base. This site remains closed/healed at this time. Dressing: Epi fix graft, Adaptic touch, Steri-Strips, dry sterile dressing.? Do not change.? May change outer dressings as needed Wash: Do not get wet Offloading: To heel weightbearing right foot surgical shoe for transfers and short distance otherwise utilize knee scooter.? New diabetic shoes are required, she was seen in office for measurement of diabetic shoes and protective inserts as these are essential to maintain offloading status and prevention of free ulceration. Will transition to diabetic shoes with protective inserts once shoes have arrived. Diagnostic data: The patient has been encouraged to augment her nutritional intake.? She had a recent appointment with her controller operations and hr manager and her hemoglobin A1c is noted to be 9.1%, this is only a mild improvement down from 9.8%. She has been advised to redouble her efforts at glycemic control, and to collaborate with her primary care physician in this regard.? I stressed the importance of proper sugar control to maintain healing aspect today and proper nutrition supplementation including Lino to aid her healing. Vascular: A noninvasive lower extremity arterial study, performed August 06, 2021, reveals no evidence of significant arterial occlusive disease in the lower extremities.? A venous duplex examination was also performed, revealing no evidence of lower extremity thrombophlebitis.? We will look to update vascular studies. Infection work-up and management: Prior procedures and infectious disease management are noted.? She had a reoccurrence of cellulitis of the right foot in which her cultures that were obtained on 02-26-2021 demonstrated Enterobacter cloacae, strep B, corynebacterium stratum, and anaerobic cocci, and this was negative for MRSA.? She completed a 10-day course of Augmentin and improvement was noted.? Her site is currently demonstrating no signs of infection, however given her history close monitoring for signs of infection is necessary. She was educated on the signs and symptoms of infection today.? She was instructed if she notices any redness about the wound margin that moves up the foot/leg, malodor of the wound, purulent drainage from the wound, or if she experiences nausea, vomiting, fever greater than 101 degree, and chills that she is to report straight to the ED as these are progressing signs of infection.? She voices understanding of this today. She states that her foot is rolling outward more even in the surgical shoe. It is noted that her foot is inverting due to weakness of the peroneal tendons with overpowering by the posterior tibial tendon. I discussed the possibility of surgical intervention to correct the deformity and balance the foot. At this time she states she is not thrilled about a possible surgery and would like to attempt orthotic versus bracing. I will consider these options to see if she would be an appropriate candidate. ? I answered all the patient's questions.? To return to the wound healing center in 1 week or call sooner if the patient has any questions or concerns. Note: [email or web address] speech recognition [employer] software was used to create portions of this document. Sound-alike and misspelled words, as well as other [employer] errors may be contained in the documentation.
[2022-10-16 10:53] VITALS: BP 143/72; PULSE 89; TEMP 35.7
--- NOTE | 2022-10-16 11:35 | PN.PCM_ITS ---
History of Present Illness Date of Service: 10/16/22 Chief Complaint: Right and left foot ulcer follow-up History of Wound: This is a 66-year-old female who is a known diabetic. She also suffers from diabetic neuropathy. In the past she completed hyperbaric oxygen therapy and reports missing many sessions due to hyperglycemia. She reports she is doing much better now that she has reduced her activity at home. No longer attending HBO sessions. She uses a knee roller to remain nonweightbearing to the right foot. She has been seen for ulcers of both feet and reports decreased drainage. She denies redness, streaking or odor to either foot. She is trying to offload better with bilateral surgical shoes with offloading cut out for the base of the fifth metatarsal. She reports recent reopening of the right subfifth metatarsal base wound secondary to wearing a pair of crocs. She denies fever, chill, nausea, vomiting, purulence or odor. Progress of Wound: remains healed, left Right foot reopened Subjective Subjective Patient is a 66-year-old female who presents to the wound center today for follow-up of a plantar right foot wound.?Her sister aids in daily dressing changes to the foot.?She continues to offload both feet in surgical shoes with plantar offloading.?Sister notes ulceration is improving. She informs me she has an office visit to pick up driver her diabetic shoes tomorrow. She denies any constitutional symptoms today.? She has no further complaints today. Objective Data Objective Data Vital Signs: Vital Signs Temp Pulse Resp BP 96.2 F L 89 18 143/72 H 10/16/22 10:53 10/16/22 10:53 10/09/22 10:44 10/16/22 10:53 Physical Exam Const alert, oriented x3 and no apparent distress General Appearance: cooperative HEENT normocephalic Eyes General Eye: normal appearance of both eyes Neck General: normal visual inspection Lymph Lymphatic: no lymphadenopathy noted and no lymphedema noted Resp normal respiratory effort Cardio regular rate and regular rhythm Extremity normal capillary refill, no joint enlargement, no calf tenderness and no pedal edema Extremity Narrative: no cyanosis, no calf tenderness, diminished pulses bilateral muscle wasting noted. Skin no rashes or lesions noted, skin turgor normal and no jaundice Skin Narrative: no purulence, no erythema, no streaking, no odor bilateral.? Adjacent skin is atrophic and thin.? Plantar lateral right foot ulcer reopened with healthy granular bed. Left foot ulcer remains healed.? Her skin in general is xerotic and atrophic Wound Narrative: Plantar lateral subfifth metatarsal base ulceration healed. No signs of infection. Neuro moves all extremities Neuro Narrative: lack of normal epicritic sensation via light touch consistent with neuropathy Debridement Note Debridement Note No debridement was completed: No debridement was completed today Post-Debridement Measurements and Additional Note: Post-Debridement Measurements/Treatment - Nurse 1 - General Ulcer Assessment Start: 10/09/22 10:43 Freq: Status: Active Protocol: LOWEXT Activity Type Activity Date Activity User E-sign Co-sign Detail Recorded Client Recorded Date Recorded By Document 10/09/22 10:44 ALYSSA [id number] 10/09/22 10:46 Document 10/16/22 10:53 ASHLI [id number] 10/16/22 10:55 ASHLI 10/09/22 10/16/22 10:44 10:53 - Today's Visit Information Type of service Follow-up Visit Follow-up Visit (Physician/ASTROPHYSICS TEACHER (Physician/ASTROPHYSICS TEACHER ) ) Arrival Mode Ambulatory, Ambulatory, Walker Walker Patient Identification Verified (Name & Yes ) Patient Requires Transmission-Based No Precautions Finger Stick Blood Sugar(mg/dl) (if 345 indicated): Blood Sugar Stated by Patient Vital Signs Temperature (97.8 F-99.1 F) 97.1 F L 96.2 F L Temperature Source Temporal Temporal Pulse Rate (60-100) 93 89 Pulse Location Monitor Monitor Respiratory Rate (12-18) 18 Respiratory rate source Observation Blood Pressure (90/60-120/80) 151/73 H 143/72 H Blood Pressure Mean (mm Hg) 99 95 Source Monitor Monitor Position Semi-Fowlers Blood Pressure Location Left Arm History Since Last Visit- (Skip if this is Patient's initial visit) Have you changed medications since your Yes No last visit? Any new allergies or adverse reactions No No Had a fall/change in ADL's that may No No increase risk of falls Signs or symptoms of abuse and/or No No neglect since last visit Have you been in the hospital since your No No last visit? Has dressing in place as prescribed Yes Yes Has compression in place as prescribed Yes Yes Has offloadiing in place as prescribed Yes N/A Experienced any changes in pain level or No No management Left Footwear Surgical Shoe Surgical Shoe with pressure with pressure relief insole relief insole Right Footwear Surgical Shoe Surgical Shoe with pressure with pressure relief insole relief insole Pain Scale: 0-10 Numeric Is Patient Pain Free? Yes Yes WC - Nurse 1 - General Ulcer Measurement Start: 10/09/22 10:43 Freq: Status: Active Protocol: Activity Type Activity Date Activity User E-sign Co-sign Detail Recorded Client Recorded Date Recorded By Document 10/09/22 10:44 ALYSSA [id number] 10/09/22 10:46 JF Document 10/16/22 10:53 AK [id number] 10/16/22 10:55 AK 10/09/22 10/16/22 10:44 10:53 Wound Center Nurse 1 #12 Right lateral foot -Combined with other wound No No -Current Size (cm) - Length 0.4 0.1 -Current Size (cm) - Width 0.5 0.1 -Current Size (cm) - Depth 0.1 0.1 -Total Square Cm 0.20 0.01 -Date of Last Picture (Recall this 10/16/22 field) -Photo Taken Yes Yes -Epithelialization Medium 34-66% -Tunneling No -Undermining/Tunneling No No -Circular Undermining No No -Change in Wound Grade/Stage No -Exudate Amt Small None Present -Exudate Type Serosanguineous -Wound Margin Flat & Intact -Granulation Amt Medium (34-66%) None Present (0 %) -Granulation Quality Red N/A -Slough/Fibrin Yes No -Necrosis Amt Small (1-33%) None Present (0 %) -Necrotic Tissue Type Adherent Slough -Structure Exposed N/A N/A -Texture (Toyin-wound Skin Appearance) Assessed Assessed,Callus -Moisture (Toyin-wound Skin Appearance) Assessed No Abnormality, Assessed -Color (Toyin-wound Skin Appearance) Assessed No Abnormality, Assessed -Temperature ([place]oy[place]-wound Skin No Abnormality No Abnormality Appearance) (Pt Warm) (Pt Warm) -Tenderness on Palpation (Toyin-wound No No Skin Appearance) -Ulcer Cleansing Rinsed/ Soap and Water Irrigated with Saline -Foul Odor after Cleansing No No -Anesthetic Used 5% Lidocaine 5% Lidocaine Gel Gel Lower Limb Edema Present NA Right Calf (cm) 32 Right Ankle (cm) 21 WC - Nurse 2 - General Ulcer CM Notes Start: 10/09/22 10:43 Freq: Status: Active Protocol: Activity Type Activity Date Activity User E-sign Co-sign Detail Recorded Client Recorded Date Recorded By Document 10/09/22 12:08 PL [id number] 10/09/22 12:09 PL 10/09/22 12:08 Wound Center Nurse 2 #12 Right lateral foot -Time 10:54 -Correct Patient Yes -Correct Side, Site, Position Yes -Correct Procedure Yes -Procedure Performed Yes -Type of Procedure Debridement -Clinical Debridement Subcutaneous -Tissue Removed Subcutaneous -Post Debridement (cm) - Length 0.2 -Post Debridement (cm) - Width 0.2 -Post Debridement (cm) - Depth 0.1 -Total Square (Post) (cm) 0.04 -Area of Debridement (cm) - Length 0.2 -Area of Debridement (cm) - Width 0.2 -Total Square (Area) (cm) 0.04 -Tunneling No -Undermining/Tunneling No -Circular Undermining No -Wound/Ulcer Outcome Not Healed -Ulcer Cleansing Rinsed/ Irrigated with Saline -Foul Odor after Cleansing No -Bioengineered Tissue Yes -Type of Bioengineered Tissue Epifix 18mm Disc -Expiration Date 06/07/27 -Product Lot Number [id number] -Percent Used 100 -Bleeding Controlled with Pressure -Treatment Response Procedure Tolerated Well -Debridement - Subq, 1st 20sq cm No -Apply Skin Sub - 1st 25 sq cm - Feet 1 -Epifix 18mm Disc 3 Pain Scale: 0-10 Numeric Is Patient Pain Free? Yes - Nurse 3 - General Ulcer D/C NN Start: 10/09/22 10:43 Freq: Status: Active Protocol: Activity Type Activity Date Activity User E-sign Co-sign Detail Recorded Client Recorded Date Recorded By Document 10/09/22 11:49 AK [id number] 10/09/22 11:52 AK 10/09/22 11:49 Wound Care Center Nurse 3 #12 Right lateral foot -Ulcer Cleansing Not Cleansed -Foul Odor after Cleansing No -Negative Pressure Wound Therapy N/A -Other Dressing ABD -Primary Dressing Covered/Secured with Dry Gauze & Roll Gauze, Secured with Tape Pain Scale: 0-10 Numeric Is Patient Pain Free? Yes WC - Visit Discharge Discharge Condition Stable Ambulatory Status Ambulatory, Walker Transportation Private Auto Accompanied by sister Medication Reconcilliation completed & Yes provided to patient/care provider Clinical Summary of Care Provided Yes Assessment/Plan Assessment/Plan (1) Non-pressure chronic ulcer of other part of right foot with fat layer exposed: CODE(S): L97.512 - Non-pressure chronic ulcer of other part of right foot with fat layer exposed (2) Type 2 diabetes mellitus with peripheral neuropathy: CODE(S): E11.42 - Type 2 diabetes mellitus with diabetic polyneuropathy (3) Diabetic foot ulcer associated with type 2 diabetes mellitus, with fat layer exposed: CODE(S): E11.621 - Type 2 diabetes mellitus with foot ulcer; L97.502 - Non-pressure chronic ulcer of other part of unspecified foot with fat layer exposed QUALIFIERS: Diabetic foot ulcer location: midfoot Laterality: unspecified laterality Qualified Code(s): E11.621 - Type 2 diabetes mellitus with foot ulcer; L97.402 - Non-pressure chronic ulcer of unspecified heel and midfoot with fat layer exposed (4) Xerosis cutis: CODE(S): L85.3 - Xerosis cutis (5) Vitamin D insufficiency: CODE(S): E55.9 - Vitamin D deficiency, unspecified (6) CKD (chronic kidney disease) stage 4, GFR 15-29 ml/min: CODE(S): N18.4 - Chronic kidney disease, stage 4 (severe) (7) Other hereditary and idiopathic neuropathies: CODE(S): G60.8 - Other hereditary and idiopathic neuropathies (8) Obesity: CODE(S): E66.9 - Obesity, unspecified (9) Hypertension: CODE(S): I10 - Essential (primary) hypertension QUALIFIERS: Hypertension type: unspecified Qualified Code(s): I10 - Essential (primary) hypertension (10) Hyperlipidemia: CODE(S): E78.5 - Hyperlipidemia, unspecified QUALIFIERS: Hyperlipidemia type: unspecified Qualified Code(s): E78.5 - Hyperlipidemia, unspecified (11) Lumbar radiculopathy: CODE(S): M54.16 - Radiculopathy, lumbar region PLAN: Plan Patient seen and evaluated She has reopened her previous ulcerative site at the base of the fifth metatarsal of the right foot.? Left foot currently remains healed.? Right foot ulceration has healed today.? No signs of infection noted. She has been approved for epi fix graft beginning 10/02/2022.? Epi fix graft #2 applied to ulcerative base on 10/09/22. No graft placed today as she has healed. She is to continue to offload in surgical shoe to the right foot with fifth metatarsal base cut out to ensure proper offloading and reduction of pressure. She will also utilize knee scooter for additional offloading.? I discussed that she is not to return to any shoe gear that is not proper diabetic shoe gear with the offloading inserts.? She was seen in the office for measurement of new diabetic shoes.? She voices understanding of our discussion here today. She will pick up driver diabetic shoes tomorrow. Encouraged to continue to offload left foot with surgical shoe as she has history of ulceration at the sub 5th metatarsal base. This site remains closed/healed at this time. Dressing: Dry sterile dressing for protection Wash: Soap and Water Offloading: To heel weightbearing right foot surgical shoe for transfers and short distance otherwise utilize knee scooter.? New diabetic shoes are required, she was seen in office for measurement of diabetic shoes and protective inserts as these are essential to maintain offloading status and prevention of free ulceration. Will transition to diabetic shoes with protective inserts tomorrow. Discussed breaking shoes in today. Diagnostic data: The patient has been encouraged to augment her nutritional intake.? She had a recent appointment with her telephone station installer and her hemoglobin A1c is noted to be 9.1%, this is only a mild improvement down from 9.8%. She has been advised to redouble her efforts at glycemic control, and to collaborate with her primary care physician in this regard.? I stressed the importance of proper sugar control to maintain healing aspect today and proper nutrition supplementation including Lino to aid her healing. Vascular: A noninvasive lower extremity arterial study, performed August 06, 2021, reveals no evidence of significant arterial occlusive disease in the lower extremities.? A venous duplex examination was also performed, revealing no evidence of lower extremity thrombophlebitis.? We will look to update vascular studies. Infection work-up and management: Prior procedures and infectious disease management are noted.? She had a reoccurrence of cellulitis of the right foot in which her cultures that were obtained on 02-26-2021 demonstrated Enterobacter cloacae, strep B, corynebacterium stratum, and anaerobic cocci, and this was negative for MRSA.? She completed a 10-day course of Augmentin and improvement was noted.? Her site is currently demonstrating no signs of infection, however given her history close monitoring for signs of infection is necessary. She was educated on the signs and symptoms of infection today.? She was instructed if she notices any redness about the wound margin that moves up the foot/leg, malodor of the wound, purulent drainage from the wound, or if she experiences nausea, vomiting, fever greater than 101 degree, and chills that she is to report straight to the ED as these are progressing signs of infection.? She voices understanding of this today. She states that her foot is rolling outward more even in the surgical shoe. It is noted that her foot is inverting due to weakness of the peroneal tendons with overpowering by the posterior tibial tendon. I discussed the possibility of surgical intervention to correct the deformity and balance the foot. At this time she states she is not thrilled about a possible surgery and would like to attempt orthotic versus bracing. I will consider these options to see if she would be an appropriate candidate. ? She has healed today but will return for final check of the site in 2 weeks to ensure diabetic shoes a properly offloading her foot. I answered all the patient's questions.? To return to the wound healing center in 2 weeks or call sooner if the patient has any questions or concerns. Note: [employer] speech recognition malter operator software was used to create portions of this document. Sound-alike and misspelled words, as well as other malter operator errors may be contained in the documentation.
--- NOTE | 2022-10-30 10:31 | PN.PCM_ITS ---
History of Present Illness Date of Service: 10/30/22 Chief Complaint: Right and left foot ulcer follow-up History of Wound: This is a 66-year-old female who is a known diabetic. She also suffers from diabetic neuropathy. In the past she completed hyperbaric oxygen therapy and reports missing many sessions due to hyperglycemia. She reports she is doing much better now that she has reduced her activity at home. No longer attending HBO sessions. She uses a knee roller to remain nonweightbearing to the right foot. She has been seen for ulcers of both feet and reports decreased drainage. She denies redness, streaking or odor to either foot. She is trying to offload better with bilateral surgical shoes with offloading cut out for the base of the fifth metatarsal. She reports recent reopening of the right subfifth metatarsal base wound secondary to wearing a pair of crocs. She denies fever, chill, nausea, vomiting, purulence or odor. Progress of Wound: remains healed, left Right foot reopened Subjective Subjective Patient is a 66-year-old female who presents to the wound center today for follow-up of a plantar right foot wound.?She continues to offload both feet in diabetic shoes and inserts with plantar offloading.?Sister notes ulceration has remained healed. She denies any constitutional symptoms today.? She has no further complaints today. Objective Data Objective Data Vital Signs: Vital Signs Temp Pulse Resp BP 96.2 F L 89 18 143/72 H 10/16/22 10:53 10/16/22 10:53 10/09/22 10:44 10/16/22 10:53 Physical Exam Const alert, oriented x3 and no apparent distress General Appearance: cooperative HEENT normocephalic Eyes General Eye: normal appearance of both eyes Neck General: normal visual inspection Lymph Lymphatic: no lymphadenopathy noted and no lymphedema noted Resp normal respiratory effort Cardio regular rate and regular rhythm Extremity normal capillary refill, no joint enlargement, no calf tenderness and no pedal edema Extremity Narrative: no cyanosis, no calf tenderness, diminished pulses bilateral muscle wasting noted. Skin no rashes or lesions noted, skin turgor normal and no jaundice Skin Narrative: no purulence, no erythema, no streaking, no odor bilateral.? Adjacent skin is atrophic and thin.? Plantar lateral right foot ulcer healed. Left foot ulcer remains healed.? Her skin in general is xerotic and atrophic Wound Narrative: Plantar lateral subfifth metatarsal base ulceration healed. No signs of infection. Neuro moves all extremities Neuro Narrative: lack of normal epicritic sensation via light touch consistent with neuropathy Debridement Note Debridement Note No debridement was completed: No debridement was completed today Post-Debridement Measurements and Additional Note: Post-Debridement Measurements/Treatment - Nurse 1 - General Ulcer Assessment Start: 10/09/22 10:43 Freq: Status: Active Protocol: SOBIA Activity Type Activity Date Activity User E-sign Co-sign Detail Recorded Client Recorded Date Recorded By Document 10/09/22 10:44 [id number] 10/09/22 10:46 JF Document 10/16/22 10:53 ASHLI [id number] 10/16/22 10:55 AK 10/09/22 10/16/22 10:44 10:53 - Today's Visit Information Type of service Follow-up Visit Follow-up Visit (Physician/DIESEL MAINTENANCE ELECTRICIAN (Physician/DIESEL MAINTENANCE ELECTRICIAN ) ) Arrival Mode Ambulatory, Ambulatory, Walker Walker Patient Identification Verified (Name & Yes ) Patient Requires Transmission-Based No Precautions Finger Stick Blood Sugar(mg/dl) (if 345 indicated): Blood Sugar Stated by Patient Vital Signs Temperature (97.8 F-99.1 F) 97.1 F L 96.2 F L Temperature Source Temporal Temporal Pulse Rate (60-100) 93 89 Pulse Location Monitor Monitor Respiratory Rate (12-18) 18 Respiratory rate source Observation Blood Pressure (90/60-120/80) 151/73 H 143/72 H Blood Pressure Mean (mm Hg) 99 95 Source Monitor Monitor Position Semi-Fowlers Blood Pressure Location Left Arm History Since Last Visit- (Skip if this is Patient's initial visit) Have you changed medications since your Yes No last visit? Any new allergies or adverse reactions No No Had a fall/change in ADL's that may No No increase risk of falls Signs or symptoms of abuse and/or No No neglect since last visit Have you been in the hospital since your No No last visit? Has dressing in place as prescribed Yes Yes Has compression in place as prescribed Yes Yes Has offloadiing in place as prescribed Yes N/A Experienced any changes in pain level or No No management Left Footwear Surgical Shoe Surgical Shoe with pressure with pressure relief insole relief insole Right Footwear Surgical Shoe Surgical Shoe with pressure with pressure relief insole relief insole Pain Scale: 0-10 Numeric Is Patient Pain Free? Yes Yes WC - Nurse 1 - General Ulcer Measurement Start: 10/09/22 10:43 Freq: Status: Active Protocol: Activity Type Activity Date Activity User E-sign Co-sign Detail Recorded Client Recorded Date Recorded By Document 10/09/22 10:44 [id number] 10/09/22 10:46 Document 10/16/22 10:53 AK [id number] 10/16/22 10:55 AK 10/09/22 10/16/22 10:44 10:53 Wound Center Nurse 1 #12 Right lateral foot -Combined with other wound No No -Current Size (cm) - Length 0.4 0.1 -Current Size (cm) - Width 0.5 0.1 -Current Size (cm) - Depth 0.1 0.1 -Total Square Cm 0.20 0.01 -Date of Last Picture (Recall this 10/16/22 field) -Photo Taken Yes Yes -Epithelialization Medium 34-66% -Tunneling No -Undermining/Tunneling No No -Circular Undermining No No -Change in Wound Grade/Stage No -Exudate Amt Small None Present -Exudate Type Serosanguineous -Wound Margin Flat & Intact -Granulation Amt Medium (34-66%) None Present (0 %) -Granulation Quality Red N/A -Slough/Fibrin Yes No -Necrosis Amt Small (1-33%) None Present (0 %) -Necrotic Tissue Type Adherent Slough -Structure Exposed N/A N/A -Texture (Toyin-wound Skin Appearance) Assessed Assessed,Callus -Moisture (Toyin-wound Skin Appearance) Assessed No Abnormality, Assessed -Color ([place]in-wound Skin Appearance) Assessed No Abnormality, Assessed -Temperature ([place]-wound Skin No Abnormality No Abnormality Appearance) (Pt Warm) (Pt Warm) -Tenderness on Palpation (Toyin-wound No No Skin Appearance) -Ulcer Cleansing Rinsed/ Soap and Water Irrigated with Saline -Foul Odor after Cleansing No No -Anesthetic Used 5% Lidocaine 5% Lidocaine Gel Gel Lower Limb Edema Present NA Right Calf (cm) 32 Right Ankle (cm) 21 WC - Nurse 2 - General Ulcer CM Notes Start: 10/09/22 10:43 Freq: Status: Active Protocol: Activity Type Activity Date Activity User E-sign Co-sign Detail Recorded Client Recorded Date Recorded By Document 10/09/22 12:08 PL [id number] 10/09/22 12:09 PL Document 10/16/22 12:09 PL [id number] 10/16/22 12:09 PL 10/09/22 10/16/22 12:08 12:09 Wound Center Nurse 2 #12 Right lateral foot -Time 10:54 11:13 -Correct Patient Yes -Correct Side, Site, Position Yes -Correct Procedure Yes -Procedure Performed Yes No -Type of Procedure Debridement -Clinical Debridement Subcutaneous -Tissue Removed Subcutaneous -Post Debridement (cm) - Length 0.2 -Post Debridement (cm) - Width 0.2 -Post Debridement (cm) - Depth 0.1 -Total Square (Post) (cm) 0.04 -Area of Debridement (cm) - Length 0.2 -Area of Debridement (cm) - Width 0.2 -Total Square (Area) (cm) 0.04 -Tunneling No -Undermining/Tunneling No -Circular Undermining No -Wound/Ulcer Outcome Not Healed Healed- Epithelialized -Ulcer Cleansing Rinsed/ Irrigated with Saline -Foul Odor after Cleansing No -Bioengineered Tissue Yes -Type of Bioengineered Tissue Epifix 18mm Disc -Expiration Date 06/07/27 -Product Lot Number [id number] -Percent Used 100 -Bleeding Controlled with Pressure -Treatment Response Procedure Tolerated Well -Debridement - Subq, 1st 20sq cm No -Apply Skin Sub - 1st 25 sq cm - Feet 1 -Epifix 18mm Disc 3 Pain Scale: 0-10 Numeric Is Patient Pain Free? Yes Yes - Nurse 3 - General Ulcer D/C NN Start: 10/09/22 10:43 Freq: Status: Active Protocol: Activity Type Activity Date Activity User E-sign Co-sign Detail Recorded Client Recorded Date Recorded By Document 10/09/22 11:49 AK [id number] 10/09/22 11:52 AK Document 10/16/22 11:37 ALYSSA [id number] 10/16/22 11:38 ALYSSA 10/09/22 10/16/22 11:49 11:37 Wound Care Center Nurse 3 #12 Right lateral foot -Ulcer Cleansing Not Cleansed Rinsed/ Irrigated with Saline -Foul Odor after Cleansing No No -Negative Pressure Wound Therapy N/A -Other Dressing ABD -Primary Dressing Covered/Secured with Dry Gauze & Dry Gauze, Roll Gauze, Secured with Secured with Tape Tape Pain Scale: 0-10 Numeric Is Patient Pain Free? Yes Yes WC - Visit Discharge Discharge Condition Stable Stable Ambulatory Status Ambulatory, Walker Walker Transportation Private Auto Private Auto Accompanied by sister daughter Medication Reconcilliation completed & Yes Yes provided to patient/care provider Clinical Summary of Care Provided Yes Yes Assessment/Plan Assessment/Plan (1) Non-pressure chronic ulcer of other part of right foot with fat layer exposed: CODE(S): L97.512 - Non-pressure chronic ulcer of other part of right foot with fat layer exposed (2) Type 2 diabetes mellitus with peripheral neuropathy: CODE(S): E11.42 - Type 2 diabetes mellitus with diabetic polyneuropathy (3) Diabetic foot ulcer associated with type 2 diabetes mellitus, with fat layer exposed: CODE(S): E11.621 - Type 2 diabetes mellitus with foot ulcer; L97.502 - Non-pressure chronic ulcer of other part of unspecified foot with fat layer exposed QUALIFIERS: Diabetic foot ulcer location: midfoot Laterality: unspecified laterality Qualified Code(s): E11.621 - Type 2 diabetes mellitus with foot ulcer; L97.402 - Non-pressure chronic ulcer of unspecified heel and midfoot with fat layer exposed (4) Xerosis cutis: CODE(S): L85.3 - Xerosis cutis (5) Vitamin D insufficiency: CODE(S): E55.9 - Vitamin D deficiency, unspecified (6) CKD (chronic kidney disease) stage 4, GFR 15-29 ml/min: CODE(S): N18.4 - Chronic kidney disease, stage 4 (severe) (7) Other hereditary and idiopathic neuropathies: CODE(S): G60.8 - Other hereditary and idiopathic neuropathies (8) Obesity: CODE(S): E66.9 - Obesity, unspecified (9) Hypertension: CODE(S): I10 - Essential (primary) hypertension QUALIFIERS: Hypertension type: unspecified Qualified Code(s): I10 - Essential (primary) hypertension (10) Hyperlipidemia: CODE(S): E78.5 - Hyperlipidemia, unspecified QUALIFIERS: Hyperlipidemia type: unspecified Qualified Code(s): E78.5 - Hyperlipidemia, unspecified (11) Lumbar radiculopathy: CODE(S): M54.16 - Radiculopathy, lumbar region PLAN: Plan Patient seen and evaluated Left foot currently remains healed.? Right foot ulceration has healed today.? No signs of infection noted. She has been approved for epi fix graft beginning 10/02/2022.? Epi fix graft #2 applied to ulcerative base on 10/09/22. No graft placed today as she has healed. She is to continue to offload in diabetic shoe with protective inserts and plantar offloading padding to the right and left foot. She will also utilize walker for additional offloading.? I discussed that she is not to return to any shoe gear that is not proper diabetic shoe gear with the offloading inserts. She voices understanding of our discussion here today. Dressing: Dry sterile dressing for protection Wash: Soap and Water Offloading: Encouraged to continue to offloading with diabetic shoes with protective inserts and plantar offloading padding. Diagnostic data: The patient has been encouraged to augment her nutritional intake.? She had a recent appointment with her manager french and her hemoglobin A1c is noted to be 9.1%, this is only a mild improvement down from 9.8%. She has been advised to redouble her efforts at glycemic control, and to collaborate with her primary care physician in this regard.? I stressed the importance of proper sugar control to maintain healing aspect today and proper nutrition supplementation including Lino to aid her healing. Vascular: A noninvasive lower extremity arterial study, performed August 06, 2021, reveals no evidence of significant arterial occlusive disease in the lower extremities.? A venous duplex examination was also performed, revealing no evidence of lower extremity thrombophlebitis.? We will look to update vascular studies. Infection work-up and management: Prior procedures and infectious disease management are noted.? She had a reoccurrence of cellulitis of the right foot in which her cultures that were obtained on 02-26-2021 demonstrated Enterobacter cloacae, strep B, corynebacterium stratum, and anaerobic cocci, and this was negative for MRSA.? She completed a 10-day course of Augmentin and improvement was noted.? Her site is currently demonstrating no signs of infection, however given her history close monitoring for signs of infection is necessary. Site remains healed with no signs of infection. She was educated on the signs and symptoms of infection today.? She was instructed if she notices any redness about the wound margin that moves up the foot/leg, malodor of the wound, purulent drainage from the wound, or if she experiences nausea, vomiting, fever greater than 101 degree, and chills that she is to report straight to the ED as these are progressing signs of infection.? She voices understanding of this today. She states that her foot is rolling outward more even in the surgical shoe. It is noted that her foot is inverting due to weakness of the peroneal tendons with overpowering by the posterior tibial tendon. I discussed the possibility of surgical intervention to correct the deformity and balance the foot. At this time she states she is not thrilled about a possible surgery and would like to attempt orthotic versus bracing. I will consider these options to see if she would be an appropriate candidate. ? She has healed today but will follow-up for a check in the office in 6 weeks to ensure her ulcerations remain healed. Note: [employer] speech recognition video specialist software was used to create portions of this document. Sound-alike and misspelled words, as well as other video specialist errors may be contained in the documentation.
[2022-10-30 11:16] VITALS: BP 151/77; PULSE 93; TEMP 36.2
== END 2022-11-04 11:01 | disposition home or self-care (01) ==
LOC: WC 10:45
PROVIDERS: PCP Family Medicine; Visit Provider Student in an Organized Health Care Education/Training Program
DX: E11.621 Type 2 diabetes mellitus with foot ulcer (principal); L97.522 Non-pressure chronic ulcer of other part of left foot with fat layer exposed; L97.402 Non-pressure chronic ulcer of unspecified heel and midfoot with fat layer exposed; L97.512 Non-pressure chronic ulcer of other part of right foot with fat layer exposed; E11.42 Type 2 diabetes mellitus with diabetic polyneuropathy; E11.22 Type 2 diabetes mellitus with diabetic chronic kidney disease; N18.4 Chronic kidney disease, stage 4 (severe); E66.9 Obesity, unspecified; G60.8 Other hereditary and idiopathic neuropathies; I12.9 Hypertensive chronic kidney disease with stage 1 through stage 4 chronic kidney disease, or unspecified chronic kidney disease; E55.9 Vitamin D deficiency, unspecified; M54.16 Radiculopathy, lumbar region; E78.5 Hyperlipidemia, unspecified
CPT/HCPCS: 15275; 99213; Q4186; G0463

== ENCOUNTER → 2022-11-14 | Outpatient (CLI) | payer MEDICARE, SELFPAY ==
[2022-11-14 15:05] LABS: Hemoglobin A1c 11.8 % (3.8-5.6)
[2022-11-14 15:25] LABS: AST(SGOT) 22 U/L (15-37); Alanine Aminotransfer ALT/SGPT 35 U/L (13-56); Albumin, Serum 3.6 g/dL (3.2-5.0); Alkaline Phosphatase 114 U/L (45-117); Anion Gap 9 (5-15); BUN 30 mg/dL (7-18); BUN/Creat Ratio 18.2 RATIO (10-20); Calcium,Total 9.5 mg/dL (8.5-10.1); Chloride 101 mmol/L (98-107); Creatinine, Serum 1.65 mg/dL (0.55-1.02); EST Glomerular Filtration Rate 33 mL/min (>60); Est Glom Filt Rate - Afr Amer 40 mL/min (>60); Globulin 3.7 g/dL (2.2-4.2); Glucose 347 mg/dL (74-106); Potassium 4.2 mmol/L (3.5-5.1); Protein, Total 7.3 g/dL (6.4-8.2); Sodium Level 137 mmol/L (136-145)
== END | disposition home or self-care (01) ==
LOC: LAB 14:22
PROVIDERS: PCP Family Medicine; Visit Provider Family Medicine
DX: E11.22 Type 2 diabetes mellitus with diabetic chronic kidney disease (principal); N18.32 Chronic kidney disease, stage 3b
CPT/HCPCS: 36415; 80053; 83036

== ENCOUNTER → 2022-11-27 | Outpatient (CLI) | payer MEDICARE, SELFPAY ==
[2022-11-27 17:57] LABS: Anion Gap 8 (5-15); BUN 38 mg/dL (7-18); BUN/Creat Ratio 21.5 RATIO (10-20); Calcium,Total 8.8 mg/dL (8.5-10.1); Chloride 99 mmol/L (98-107); Creatinine, Serum 1.77 mg/dL (0.55-1.02); EST Glomerular Filtration Rate 30 mL/min (>60); Est Glom Filt Rate - Afr Amer 37 mL/min (>60); Glucose 492 mg/dL (74-106); Potassium 4.6 mmol/L (3.5-5.1); Sodium Level 132 mmol/L (136-145)
== END | disposition home or self-care (01) ==
LOC: LAB 14:18
PROVIDERS: PCP Family Medicine; Referring Provider Internal Medicine Nephrology; Visit Provider Internal Medicine Nephrology
DX: E11.21 Type 2 diabetes mellitus with diabetic nephropathy (principal)
CPT/HCPCS: 36415; 80048

== ENCOUNTER 2022-12-01 17:11 | Inpatient (IN) | payer MEDICARE, SELFPAY ==
[2022-12-01 17:12] VITALS: BP 139/78; BP 144/65; PULSE 74; PULSE 92; RESP 16; TEMP 37; TEMP 37.3; O2SAT 97; O2SAT 99; BMI 34.3
[2022-12-01 17:15] VITALS: BP 132/70; BP 132/71; PULSE 78; PULSE 88; RESP 17; TEMP 37.2; O2SAT 93; O2SAT 97; O2SAT 99
[2022-12-01 18:12] VITALS: BP 132/71; PULSE 74; PULSE 78; RESP 15; RESP 16; TEMP 36.6; TEMP 37.3; O2SAT 98
--- NOTE | 2022-12-01 19:05 | EKG12_ITS ---
Test Reason : Blood Pressure : / mmHG Vent. Rate : 088 BPM Atrial Rate : 088 BPM P-R Int : 146 ms QRS Dur : 084 ms QT Int : 372 ms P-R-T Axes : 050 046 034 degrees QTc Int : 450 ms Normal sinus rhythm Inferior infarct , age undetermined Anteroseptal infarct , age undetermined Abnormal ECG Confirmed by JULIA LINARES, SARAH ([id number]), associate entertainment editor KATHLEEN WHITNEY ([id number]) on 12/03/2022 9:56:20 AM Referred By: Confirmed By:SARAH DUMONT MD
[2022-12-01 19:31] LABS: Absolute Lymphocyte Count 1.49 X10^3/uL (0.83-4.51); Absolute Neutrophil Count 13.4 X10^3/uL (2.0-7.7); Basophil# 0.05 X10^3/uL; Basophil% 0.3 % (0-1); Eosinophil# 0.04 X10^3/uL; Eosinophils% 0.2 % (0-5); Hematocrit 35.1 % (37-47); Hemoglobin 11.4 g/dL (12.0-15.0); Lymphocyte # 1.49 X10^3/ul (0.83-4.51); Lymphocyte % 9.2 % (19-41); Mean Corp Hgb Conc 32.5 g/dL (32-36); Mean Corpuscular Hgb 28.6 pg (27.0-32.0); Mean Corpuscular Volume 88.2 fL (81-99); Monocyte# 1.16 X10^3/uL; Monocyte% 7.2 % (0-10); NRBC Flagged by Analyzer 0 % (0-5); Neutrophil # 13.37 X10^3/uL (2.7-7.7); Neutrophil % 82.5 % (47-70); POSITIVE COUNT YES; RBC Distribution Width CV 13.2 % (11.6-14.6); RBC Distribution Width SD 42.9 fl (35.1-43.9); Red Blood Count 3.98 M/mm3 (4.2-5.4); White Blood Count 16.2 K/mm3 (4.4-11.0)
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
[2022-12-01] MEDS: 0.9% Normal Saline 1,000 ML 250 ML IV (19:56)
[2022-12-01 19:57] LABS: Lactic Acid 1.1 mmol/L (0.4-1.9)
[2022-12-01 20:00] LABS: Differential Indicated SCAN CRITERIA MET
[2022-12-01 20:01] LABS: Differential Comment SCANNED; Platelet Estimate ADEQUATE (ADEQ)
[2022-12-01 20:04] LABS: International Normalized Ratio 1.1; Prothrombin Time (Protime)PT. 13.8 SECONDS (11.7-14.9)
[2022-12-01 20:05] LABS: Partial Thromboplast Time 33.4 Seconds (24.1-36.2)
[2022-12-01 20:07] LABS: ALB/GLOB Ratio 0.5 RATIO (0.9-2.4); AST(SGOT) 37 U/L (15-37); Alanine Aminotransfer ALT/SGPT 23 U/L (13-56); Albumin, Serum 2.7 g/dL (3.2-5.0); Alkaline Phosphatase 167 U/L (45-117); Anion Gap 10 (5-15); BUN 48 mg/dL (7-18); BUN/Creat Ratio 22.2 RATIO (10-20); Chloride 94 mmol/L (98-107); Creatinine, Serum 2.16 mg/dL (0.55-1.02); EST Glomerular Filtration Rate 24 mL/min (>60); Est Glom Filt Rate - Afr Amer 29 mL/min (>60); Estimated Creatinine Clearance 19.99 ml/min; Glucose 517 mg/dL (74-106); Potassium 5.1 mmol/L (3.5-5.1); Protein, Total 7.7 g/dL (6.4-8.2); Sodium Level 123 mmol/L (136-145)
[2022-12-01 20:17] LABS: Erythrocyte Sedimentation Rate 113 mm/hr (0-30)
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
[2022-12-01] MEDS: Insulin Lispro 100 UNIT/ML INSULN.PEN 8 UNIT SC (22:22)
[2022-12-01 22:28] VITALS: BP 132/78; PULSE 78; RESP 14; TEMP 36.8; O2SAT 98
[2022-12-01 23:00] VITALS: BP 121/61; PULSE 78; RESP 16; TEMP 36.6; O2SAT 96
[2022-12-01 23:25] VITALS: BMI 33.7
[2022-12-01 23:30] VITALS: BP 112/89; PULSE 85; RESP 20; TEMP 36.6; O2SAT 98
[2022-12-02] VITALS: BP 127/57; PULSE 80; RESP 18; TEMP 36.6; O2SAT 96
[2022-12-02] MEDS: 0.9% Normal Saline 1,000 ML 150 ML IV ×2 (00:09→05:12)
[2022-12-02 00:46] LABS: Bedside Glucose 303 mg/dL (74-106)
[2022-12-02] MEDS: Insulin Glargine-YFGN 100 UNIT/ML Pen 65 UNIT SC ×2 (00:52→08:16)
--- NOTE | 2022-12-02 01:11 | PCM.RX.CS ---
Consult Pharmacy has been consulted to manage selected antiobiotic: Vancomycin Type of Consult: New start Labs: Sodium 123 mmol/L (136-145) L 12/01/22 19:20 Potassium 5.1 mmol/L (3.5-5.1) 12/01/22 19:20 Chloride 94 mmol/L (98-107) L 12/01/22 19:20 Carbon Dioxide 19.0 mmol/L (21.0-32.0) L 12/01/22 19:20 Anion Gap 10 (5-15) 12/01/22 19:20 BUN 48 mg/dL (7-18) H 12/01/22 19:20 Creatinine 2.16 mg/dL (0.55-1.02) H 12/01/22 19:20 Est GFR (MDRD) Af Amer 29 mL/min (>60) L 12/01/22 19:20 Est GFR (MDRD) Non-Af 24 mL/min (>60) L 12/01/22 19:20 BUN/Creatinine Ratio 22.2 RATIO (10-20) H 12/01/22 19:20 Glucose 517 mg/dL (74-106) H* 12/01/22 19:20 Goal Trough: 15-20 mcg/mL Pharmacy Plan for Drug Dosing: Pharmacy Service will continue to monitor and adjust dosing as required. Medications Vancomycin HCl (Vancomycin) 1,000 mg in 200 mls @ 200 mls/hr IV Q24H CHRISSIE Discontinued Medications Vancomycin HCl 2,000 mg/ (Sodium Chloride) 290 mls @ 250 mls/hr IV X1 ONE Stop: 12/01/22 20:04 Last Admin: 12/01/22 22:27 Dose: Infused Follow-Up Labs: Trough Vancomycin Labs to be done on [date and time ordered]: 12/03 @ 2030
[2022-12-02] MEDS: Insulin Lispro 100 UNIT/ML INSULN.PEN SC ×5 (02:22→22:29)
[2022-12-02 02:45] LABS: Bedside Glucose 383 mg/dL (74-106)
[2022-12-02 04:40] LABS: Absolute Lymphocyte Count 1.74 X10^3/uL (0.83-4.51); Absolute Neutrophil Count 8.7 X10^3/uL (2.0-7.7); Basophil# 0.05 X10^3/uL; Basophil% 0.4 % (0-1); Eosinophil# 0.22 X10^3/uL; Eosinophils% 1.9 % (0-5); Hematocrit 27.9 % (37-47); Hemoglobin 8.9 g/dL (12.0-15.0); Lymphocyte # 1.74 X10^3/ul (0.83-4.51); Lymphocyte % 14.8 % (19-41); Mean Corp Hgb Conc 31.9 g/dL (32-36); Mean Corpuscular Hgb 27.5 pg (27.0-32.0); Mean Corpuscular Volume 86.1 fL (81-99); Mean Platelet Vol. 10.5 fl (6.2-12.0); Monocyte# 0.94 X10^3/uL; NRBC Flagged by Analyzer 0 % (0-5); Neutrophil # 8.72 X10^3/uL (2.7-7.7); Platelet Count 325 K/mm3 (150-450); RBC Distribution Width CV 13.1 % (11.6-14.6); RBC Distribution Width SD 40.9 fl (35.1-43.9); Red Blood Count 3.24 M/mm3 (4.2-5.4); White Blood Count 11.8 K/mm3 (4.4-11.0)
[2022-12-02 04:58] LABS: Anion Gap 6 (5-15); BUN 41 mg/dL (7-18); BUN/Creat Ratio 21.8 RATIO (10-20); Calcium,Total 8.1 mg/dL (8.5-10.1); Chloride 104 mmol/L (98-107); Creatinine, Serum 1.88 mg/dL (0.55-1.02); EST Glomerular Filtration Rate 28 mL/min (>60); Est Glom Filt Rate - Afr Amer 34 mL/min (>60); Estimated Creatinine Clearance 22.97 ml/min; Glucose 315 mg/dL (74-106); Potassium 3.5 mmol/L (3.5-5.1); Sodium Level 133 mmol/L (136-145)
[2022-12-02 06:15] LABS: Bedside Glucose 240 mg/dL (74-106)
[2022-12-02 07:16] VITALS: O2SAT 92
[2022-12-02 07:49] VITALS: BP 119/64; PULSE 83; RESP 16; TEMP 36.5; O2SAT 95
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
[2022-12-02 12:05] LABS: Bedside Glucose 198 mg/dL (74-106)
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
[2022-12-02 16:17] VITALS: BP 122/60; PULSE 83; RESP 16; TEMP 36.4; O2SAT 96
[2022-12-02] MEDS: Gabapentin 300 MG Capsule PO (16:20)
[2022-12-02] MEDS: Aspirin E.C. 81 MG Tablet PO (16:20)
[2022-12-02] MEDS: amLODIPine 5 MG Tablet PO (16:20)
[2022-12-02] MEDS: Ascorbic Acid 500 MG Tablet 1000 MG PO (16:21)
[2022-12-02] MEDS: Pantoprazole Sodium 20 MG Tablet PO (16:21)
[2022-12-02] MEDS: Juven (unflavored) Packet 1 PACKET PO (16:23)
[2022-12-02 16:55] LABS: Bedside Glucose 209 mg/dL (74-106)
--- NOTE | 2022-12-02 17:23 | PCM.PN.HOSP ---
Reason for Visit Reason for Visit: Diagnoses Type 2 diabetes mellitus with diabetic polyneuropathy (12/01/22) Type 2 diabetes mellitus with diabetic peripheral angiopathy with gangrene (12/01/22) Type 2 diabetes mellitus with other skin complications (12/01/22) Local infection of the skin and subcutaneous tissue, unspecified (12/01/22) Non-pressure chronic ulcer of other part of right foot with fat layer exposed (12/01/22) Other acute osteomyelitis, right ankle and foot (12/01/22) Osteomyelitis, unspecified (12/01/22) Subjective Subjective Patient was seen and examined today, she was admitted for a right foot infection yesterday, she is being seen by podiatry. MRI of the right lower extremity showed osteomyelitis across the fifth TMT articulation with an adjacent open soft tissue ulcer/wound and subcutaneous abscess. Objective Data Objective Data Vital Signs: Vital Signs Temp Pulse Resp BP Pulse Ox O2 Del Method O2 Flow Rate 97.6 F L 83 16 122/60 H 96 Room Air 92 12/02/22 16:17 12/02/22 16:17 12/02/22 16:17 12/02/22 16:17 12/02/22 16:17 12/02/22 16:17 12/02/22 07:16 Oxygen Flow Rate (L/min) 92 Oxygen Delivery Method Room Air Weight: 83.8 kg Body Mass Index (BMI) 33.7 Intake & Output: Intake and Output for Last 24 Hours 11/30/22 12/01/22 12/02/22 23:59 23:59 23:59 Intake Total 390 / 630 2467.5 / 2467.5 Balance 390 / 630 2467.5 / 2467.5 Lab / Micro Data Result Diagrams: 12/02/22 04:30 12/02/22 04:30 Labs: Laboratory Results - last 24 hr 12/01/22 19:20: WBC 16.2 H, RBC 3.98 L, Hgb 11.4 L, Hct 35.1 L, MCV 88.2, MCH 28.6, MCHC 32.5, RDW Std Deviation 42.9, RDW Coeff of Steven 13.2, Plt Count TNP, Immature Gran % (Auto) 0.600, Neut % (Auto) 82.5 H, Lymph % (Auto) 9.2 L, [place] % (Auto) 7.2, Eos % (Auto) 0.2, Baso % (Auto) 0.3, Absolute Neuts (auto) 13.4 H, Absolute Lymphs (auto) 1.49, Nucleated RBC % 0, Differential Comment SCANNED, Platelet Estimate ADEQUATE 12/01/22 19:20: Sodium 123 L, Potassium 5.1, Chloride 94 L, Carbon Dioxide 19.0 L, Anion Gap 10, BUN 48 H, Creatinine 2.16 H, Estim Creat Clear Calc 19.99, Est GFR (MDRD) Af Amer 29 L, Est GFR (MDRD) Non-Af 24 L, BUN/Creatinine Ratio 22.2 H, Glucose 517 H*, Calcium 9.0, Total Bilirubin 0.40, AST 37, ALT 23, Alkaline Phosphatase 167 H, Total Protein 7.7, Albumin 2.7 L, Globulin 5.0 H, Albumin/Globulin Ratio 0.5 L 12/01/22 19:20: Lactic Acid 1.1 12/01/22 19:20: ESR 113 H 12/01/22 19:27: PT 13.8, INR 1.1, APTT 33.4 12/02/22 00:21: POC Glucose 303 H 12/02/22 02:20: POC Glucose 383 H 12/02/22 04:30: WBC 11.8 H, RBC 3.24 L, Hgb 8.9 L, Hct 27.9 L, MCV 86.1, MCH 27.5, MCHC 31.9 L, RDW Std Deviation 40.9, RDW Coeff of Steven 13.1, Plt Count 325, MPV 10.5, Immature Gran % (Auto) 0.900, Neut % (Auto) 74.0 H, Lymph % (Auto) 14.8 L, [place] % (Auto) 8.0, Eos % (Auto) 1.9, Baso % (Auto) 0.4, Absolute Neuts (auto) 8.7 H, Absolute Lymphs (auto) 1.74, Nucleated RBC % 0 12/02/22 04:30: Sodium 133 L, Potassium 3.5, Chloride 104, Carbon Dioxide 23.0, Anion Gap 6, BUN 41 H, Creatinine 1.88 H, Estim Creat Clear Calc 22.97, Est GFR (MDRD) Af Amer 34 L, Est GFR (MDRD) Non-Af 28 L, BUN/Creatinine Ratio 21.8 H, Glucose 315 H, Calcium 8.1 L 12/02/22 04:30: C-React Prot Ext Range 187.00 H 12/02/22 05:39: POC Glucose 240 H 12/02/22 11:36: POC Glucose 198 H 12/02/22 16:27: POC Glucose 209 H Radiography Diagnostic Testing: Radiology Impression Foot X-Ray 12/01/22 21:25 IMPRESSION: Chronic fracture at the base of the fifth metatarsal. There also appears be a chronic fracture seen in the anterior scaphoid. There are chronic appearing changes of the midfoot with apparent subluxations and degenerative changes. There is a pes planus deformity. If indicated further evaluation with MRI may be beneficial. Electronically Signed: Jon Christine MD at 21:49 EDT Reading Location ID and State: [facility] / [place] Tel , Service support , Lower Extremity MRI 12/02/22 07:49 IMPRESSION: Osteomyelitis across the fifth TMT articulation with an adjacent open soft tissue ulcer/wound and subcutaneous abscess 1. On lateral midfoot subcutaneous abscess is present over the dorsum of the fifth metatarsal bone measuring 3.58 x 1.12 cm with a small component extending to the plantar surface and into the opening soft tissue ulcer/wound overlying this region. Mild cortical erosion of the fragments at the base of the fifth metatarsal bone/TMT articulation is consistent with active osteomyelitis. Moderate subcutaneous edema is present around the ankle and foot. Electronically Signed: Isaiah Mcintosh MD at 15:18 EDT , ADDENDUM: 12/02/22 1531 IMPRESSION: Osteomyelitis across the fifth TMT articulation with an adjacent open soft tissue ulcer/wound and subcutaneous abscess 1. On lateral midfoot subcutaneous abscess is present over the dorsum of the fifth metatarsal bone measuring 3.58 x 1.12 cm with a small component extending to the plantar surface and into the opening soft tissue ulcer/wound overlying this region. Mild cortical erosion of the fragments at the base of the fifth metatarsal bone/TMT articulation is consistent with active osteomyelitis. Moderate subcutaneous edema is present around the ankle and foot. N.B. : The above Results were Read Back by Isaiah Mcintosh MD to Grayson Shannon RN, and understanding confirmed on 12/02/2022 15:24:55 (ET). Electronically Signed: Isaiah Mcintosh MD at 15:18 EDT , Physical Exam Const alert, oriented x3, no apparent distress, average body habitus and healthy appearing General Appearance: cooperative, well kempt and well developed Orientation / Consciousness: awake, oriented to person, oriented to place and oriented to time HEENT normocephalic, head/scalp atraumatic and moist oral mucous membranes Eyes PERRL, EOMs intact bilaterally and conjunctivae normal Neck supple, no JVD, thyroid normal and no carotid bruits General: trachea midline Resp normal respiratory effort, no retractions, no use of accessory muscles and clear to auscultation bilaterally Auscultation: Negative for rales, rhonchi or wheezes Cardio regular rate, regular rhythm, S1 normal heart sound, S2 normal heart sound, no murmurs, no rub and no gallops GI normal to inspection, nondistended, normoactive bowel sounds, soft to palpation, non-tender and non-distended Extremity Extremity Narrative: Right lower leg is wrapped with surgical dressing, this was not removed for examination of the area Skin no rashes or lesions noted General Skin Exam: no breakdown Neuro oriented x3, CN's II-XII intact bilaterally, no focal motor deficits and no sensory deficits noted Sensorium / Orientation: awake and alert Speech: speech normal Psych affect normal Assessment & Plan Assessment/Plan (1) Osteomyelitis of foot, right, acute: PLAN: Plan 1. Neuropathic infection of the right foot with osteomyelitis-again podiatry is seeing the patient, she remains on IV antibiotics at this time, it is unknown whether the patient will need extensive surgery of the right foot, I will have ID see the patient in consultation. #2 type 2 diabetes-patient's blood sugars will be monitored, sliding scale insulin will be administered #3 essential hypertension-patient will remain on her present medications #4 hyperlipidemia-patient is on Zetia #5 neuropathy secondary to type 2 diabetes-patient will remain on gabapentin Total clinical time spent by myself addressing the patient's medical issues, reviewing all of her data, and collaborating with the patient's care team: 35 minutes Charges/Coding Visit Charges Inpatient E&M: 12602 Subs Hosp L2
[2022-12-02] MEDS: Insulin Human 75/25 Kwickpen 35 UNIT SC (19:02)
[2022-12-02 20:00] VITALS: PULSE 86; RESP 16; O2SAT 98
[2022-12-02] MEDS: Vancomycin IV 1,000 MG/200 ML BAG 200 MG IV (20:44)
[2022-12-02] MEDS: Multivitamin (Healthy Eyes) Capsule 1 CAP PO (21:11)
[2022-12-02] MEDS: Ezetimibe 10 MG Tablet PO (22:28)
[2022-12-02] MEDS: Glycerin/Hypromellose/PEG400 15 ml Bottle 1 DRP EACH EYE (22:36)
[2022-12-02 23:16] LABS: Bedside Glucose 208 mg/dL (74-106)
[2022-12-02 23:17] VITALS: BP 127/67; PULSE 86; RESP 16; TEMP 36.5; O2SAT 98
[2022-12-03] VITALS (9 sets, daily range): BP systolic 103–130; BP diastolic 53–68; PULSE 66–84; RESP 16–18; TEMP 36.1–36.8; O2SAT 93–99
[2022-12-03 04:29] LABS: Absolute Lymphocyte Count 2.12 X10^3/uL (0.83-4.51); Absolute Neutrophil Count 7.9 X10^3/uL (2.0-7.7); Basophil# 0.06 X10^3/uL; Basophil% 0.5 % (0-1); Eosinophils% 2.6 % (0-5); Hematocrit 28.8 % (37-47); Hemoglobin 9.1 g/dL (12.0-15.0); Lymphocyte # 2.12 X10^3/ul (0.83-4.51); Lymphocyte % 18.3 % (19-41); Mean Corp Hgb Conc 31.6 g/dL (32-36); Mean Corpuscular Hgb 27.7 pg (27.0-32.0); Mean Corpuscular Volume 87.5 fL (81-99); Mean Platelet Vol. 10.4 fl (6.2-12.0); Monocyte% 9.5 % (0-10); NRBC Flagged by Analyzer 0 % (0-5); Neutrophil # 7.93 X10^3/uL (2.7-7.7); Neutrophil % 68.2 % (47-70); Platelet Count 346 K/mm3 (150-450); RBC Distribution Width CV 13.5 % (11.6-14.6); RBC Distribution Width SD 43.6 fl (35.1-43.9); Red Blood Count 3.29 M/mm3 (4.2-5.4); White Blood Count 11.6 K/mm3 (4.4-11.0)
[2022-12-03 04:43] LABS: International Normalized Ratio 1.1; Prothrombin Time (Protime)PT. 13.5 SECONDS (11.7-14.9)
[2022-12-03 04:51] LABS: Anion Gap 7 (5-15); BUN 55 mg/dL (7-18); BUN/Creat Ratio 25.7 RATIO (10-20); Calcium,Total 8.1 mg/dL (8.5-10.1); Chloride 108 mmol/L (98-107); Creatinine, Serum 2.14 mg/dL (0.55-1.02); EST Glomerular Filtration Rate 24 mL/min (>60); Est Glom Filt Rate - Afr Amer 30 mL/min (>60); Estimated Creatinine Clearance 20.18 ml/min; Glucose 96 mg/dL (74-106); Potassium 3.8 mmol/L (3.5-5.1); Sodium Level 137 mmol/L (136-145)
--- NOTE | 2022-12-03 05:00 | RAD_ITS ---
STUDY: X-RAY CHEST REASON FOR EXAM: Female, 67 years old. Pre op TECHNIQUE: Single AP portable view of the chest. COMPARISON: Comparison is made with prior study dated September 16, 2021. FINDINGS: The lungs are clear and expanded. There is no demonstrated pleural abnormality. Normal size heart. Normal mediastinum and juan. Normal visualized pulmonary arteries. There is atherosclerotic tortuosity of the aortic arch and descending thoracic aorta. Normal visualized thoracic spine. Normal visualized ribs, clavicles, and shoulders. There is no demonstrated abnormality of the visualized soft tissue structures of the upper abdomen. RAD/Chest 1 View (Portable) IMPRESSION: Normal x-ray examination of the chest. Electronically Signed: Ibrahima Gutierrez MD at 9:41 EDT ,
[2022-12-03 07:01] LABS: Bedside Glucose 77 mg/dL (74-106)
[2022-12-03] MEDS: Pantoprazole Sodium 20 MG Tablet PO (09:51)
--- NOTE | 2022-12-03 10:23 | PCM.PN.HOSP ---
Reason for Visit Reason for Visit: Diagnoses Type 2 diabetes mellitus with diabetic polyneuropathy (12/01/22) Type 2 diabetes mellitus with diabetic peripheral angiopathy with gangrene (12/01/22) Type 2 diabetes mellitus with other skin complications (12/01/22) Local infection of the skin and subcutaneous tissue, unspecified (12/01/22) Non-pressure chronic ulcer of other part of right foot with fat layer exposed (12/01/22) Other acute osteomyelitis, right ankle and foot (12/01/22) Osteomyelitis, unspecified (12/01/22) Subjective Subjective Patient was seen and examined today, she is due to go to surgery today for debridement of her right foot wound. Objective Data Objective Data Vital Signs: Vital Signs Temp Pulse Resp BP Pulse Ox O2 Del Method O2 Flow Rate 97.9 F 84 16 129/66 H 99 Room Air 92 12/03/22 10:00 12/03/22 10:00 12/03/22 10:00 12/03/22 10:00 12/03/22 10:00 12/03/22 10:00 12/02/22 07:16 Oxygen Flow Rate (L/min) 92 Oxygen Delivery Method Room Air Weight: 83.8 kg Body Mass Index (BMI) 33.7 Intake & Output: Intake and Output for Last 24 Hours 12/01/22 12/02/22 12/03/22 23:59 23:59 23:59 Intake Total 390 / 630 2667.5 / 2667.5 100 / 100 Balance 390 / 630 2667.5 / 2667.5 100 / 100 Lab / Micro Data Result Diagrams: 12/03/22 04:20 12/03/22 04:20 Labs: Laboratory Results - last 24 hr 12/02/22 11:36: POC Glucose 198 H 12/02/22 16:27: POC Glucose 209 H 12/02/22 22:26: POC Glucose 208 H 12/03/22 04:20: WBC 11.6 H, RBC 3.29 L, Hgb 9.1 L, Hct 28.8 L, MCV 87.5, MCH 27.7, MCHC 31.6 L, RDW Std Deviation 43.6, RDW Coeff of Steven 13.5, Plt Count 346, MPV 10.4, Immature Gran % (Auto) 0.900, Neut % (Auto) 68.2, Lymph % (Auto) 18.3 L, [place] % (Auto) 9.5, Eos % (Auto) 2.6, Baso % (Auto) 0.5, Absolute Neuts (auto) 7.9 H, Absolute Lymphs (auto) 2.12, Nucleated RBC % 0 12/03/22 04:20: PT 13.5, INR 1.1 12/03/22 04:20: Sodium 137, Potassium 3.8, Chloride 108 H, Carbon Dioxide 22.0, Anion Gap 7, BUN 55 H, Creatinine 2.14 H, Estim Creat Clear Calc 20.18, Est GFR (MDRD) Af Amer 30 L, Est GFR (MDRD) Non-Af 24 L, BUN/Creatinine Ratio 25.7 H, Glucose 96, Calcium 8.1 L 12/03/22 06:40: POC Glucose 77 Radiography Diagnostic Testing: Radiology Impression Lower Extremity MRI 12/02/22 07:49 IMPRESSION: Osteomyelitis across the fifth TMT articulation with an adjacent open soft tissue ulcer/wound and subcutaneous abscess 1. On lateral midfoot subcutaneous abscess is present over the dorsum of the fifth metatarsal bone measuring 3.58 x 1.12 cm with a small component extending to the plantar surface and into the opening soft tissue ulcer/wound overlying this region. Mild cortical erosion of the fragments at the base of the fifth metatarsal bone/TMT articulation is consistent with active osteomyelitis. Moderate subcutaneous edema is present around the ankle and foot. Electronically Signed: Isaiah Mcintosh MD at 15:18 EDT Reading Location ID and State: [facility] / [place] , Service support , ADDENDUM: 12/02/22 1535 IMPRESSION: Osteomyelitis across the fifth TMT articulation with an adjacent open soft tissue ulcer/wound and subcutaneous abscess 1. On lateral midfoot subcutaneous abscess is present over the dorsum of the fifth metatarsal bone measuring 3.58 x 1.12 cm with a small component extending to the plantar surface and into the opening soft tissue ulcer/wound overlying this region. Mild cortical erosion of the fragments at the base of the fifth metatarsal bone/TMT articulation is consistent with active osteomyelitis. Moderate subcutaneous edema is present around the ankle and foot. N.B. : The above Results were Read Back by Isaiah Mcintosh MD to Grayson Shannon RN, and understanding confirmed on 12/02/2022 15:24:55 (ET). Electronically Signed: Isaiah Mcintosh MD at 15:18 EDT , Chest X-Ray 12/03/22 05:00 IMPRESSION: Normal x-ray examination of the chest. Electronically Signed: Ibrahima Gutierrez MD at 9:41 EDT , Physical Exam Narrative alert, oriented x3, no apparent distress, average body habitus and healthy appearing General Appearance: cooperative, well kempt and well developed Orientation / Consciousness: awake, oriented to person, oriented to place and oriented to time HEENT normocephalic, head/scalp atraumatic and moist oral mucous membranes Eyes PERRL, EOMs intact bilaterally and conjunctivae normal Neck supple, no JVD, thyroid normal and no carotid bruits General: trachea midline Resp normal respiratory effort, no retractions, no use of accessory muscles and clear to auscultation bilaterally Auscultation: Negative for rales, rhonchi or wheezes Cardio regular rate, regular rhythm, S1 normal heart sound, S2 normal heart sound, no murmurs, no rub and no gallops GI normal to inspection, nondistended, normoactive bowel sounds, soft to palpation, non-tender and non-distended Extremity Extremity Narrative: Right lower leg is wrapped with surgical dressing, this was not removed for examination of the area Skin no rashes or lesions noted General Skin Exam: no breakdown Neuro oriented x3, CN's II-XII intact bilaterally, no focal motor deficits and no sensory deficits noted Sensorium / Orientation: awake and alert Speech: speech normal Psych affect normal Assessment & Plan Assessment/Plan (1) Diabetic infection of right foot: (2) Osteomyelitis of foot, right, acute: PLAN: Plan 1. Neuropathic infection of the right foot with osteomyelitis-again podiatry is seeing the patient, she remains on IV antibiotics at this time, patient is going to surgery today by podiatry, I will have ID see the patient in consultation. #2 type 2 diabetes-patient's blood sugars will be monitored, sliding scale insulin will be administered #3 essential hypertension-patient will remain on her present medications #4 hyperlipidemia-patient is on Zetia #5 neuropathy secondary to type 2 diabetes-patient will remain on gabapentin Total clinical time spent by myself addressing the patient's medical issues, reviewing all of her data, and collaborating with the patient's care team: 35 minutes Charges/Coding Visit Charges Inpatient E&M: 97903 Subs Hosp L2
[2022-12-03 10:41] LABS: Bedside Glucose 72 mg/dL (74-106)
[2022-12-03] MEDS: Dextrose 50%-Water 25 GM/50 ML DISP.SYRIN 6.25 GM IV (10:41)
[2022-12-03] MEDS: Dextrose 5%-Lactated Ringers 1,000 ML 15 ML IV (11:25)
[2022-12-03 11:36] LABS: Bedside Glucose 88 mg/dL (74-106)
--- NOTE | 2022-12-03 12:00 | BON_PTH ---
PATIENT: HAIDER PARISI LOC: MS3 U#:[id number] AGE/SX: 67/F ROOM: [facility] [place] RE12/01/[address]: Dr. Tha Maria MD : 1955 BED: 1 DIS: 12/11/2022 SPEC #: [id number] RECD: 12/03/22 14:00 STATUS: EDIL NARVAEZ #: [id number] MARGO: 12/03/22 12:[address]: Don Keith DEPT: SURGICAL PATHOLOGY RECD BY: Clara Henderson ENTERED: 12/04/22 10:49 SP TYPE: Bone OTHR DR: Dr. Don Keith, DPM MD Dr. Hever Jeff, DO Dr. Hever Mcdonald, DO Dr. Danny Amaro MD Tissues: Foot, NOS Procedures: Decalcification bone/plaque Surgery Specimen Level V Comments: @ Ordering doctor for DEC edited from to @ by JYOTHI at 12/04/22 1515 @ Ordering doctor for SUV edited from to @ by JYOTHI at 12/04/22 1515 @ Submitting doctor edited from to @ by JYOTHI at 12/04/22 1515 HEADER OPERATION: Incision, drainage foot abscess PRE-OP DIAGNOSIS: Diabetic infection right foot TISSUE SUBMITTED: Right foot fifth metatarsal bone MICROSCOPIC DIAGNOSIS Right foot, fifth metatarsal bone, bone biopsy: Acute osteomyelitis. AM:mayela 12/10/2022 MICROSCOPIC DESCRIPTION Slides are reviewed. GROSS DESCRIPTION Received in fixative is one container labeled with the patient's name and designated right foot fifth metatarsal bone. The specimen consists of two irregular fragments of gritty damon bone tissue that in aggregate measure 1.5 x 0.7 x 0.2 cm. The specimen is totally submitted in one cassette after decalcification. / AM:mayela 12/04/2022 TC:2 CPT: 33272, 94254
[2022-12-03] MEDS: Bupivacaine 0.25% 30 ML Vial (12:35)
--- NOTE | 2022-12-03 12:55 | OP.PCM_ITS ---
Problems Associated Problem List Diagnoses (1) Osteomyelitis of foot, right, acute: (2) Diabetic infection of right foot: Report of Operation Date of Procedure: 12/03/22 Pre-Operative Diagnosis: 1) Acute right foot abscess 2) Acute Osteomyelitis right foot 3) diabetic neuropathy 4) diabetic foot wound, right foot 5) metatarsus adductus, right foot Post-Operative Diagnosis: same Surgery/Procedure Performed:: 1) Incision and drainage right foot abscess with bone biopsy/culture Description of Surgical Findings:: There was a deep abscess to the dorsal right fifth metatarsal base. This extended down to the level of bone where there is noted to be pathologic fracturing of the fifth metatarsal base. The bone itself to be appeared to be firm and viable. Bone cultures and pathology were taken. Upon debridement of the abscess there is noted to be healthy intact viable underlying tissue with good wound healing potential and no residual infected tissue noted Surgeon: Don Keith apartment leasing manager: None Type of Anesthesia: Local MAC Special Medications: 20 cc quarter percent Marcaine plain Specimen's removed: Right fifth metatarsal bone Drains: None Estimated Blood Loss (mL): Minimum Description of Procedure: Patient was admitted to hospital with acute right diabetic foot infection in setting of chronic right foot ulceration with acute abscess formation due to diabetic neuropathy metatarsal adductus deformity. MRI did confirm abscess to the fifth metatarsal with concern for osteomyelitis to right fifth metatarsal base. Decision for incision and drainage of abscess was made and discussed with patient detail. Patient was brought back the operating placed comfortably in the supine position on the operating room table. Patient was induced under MAC anesthesia. All osseous prominences were offloaded prevent any compression neuropraxia. Well- padded right ankle tourniquet was applied. Right lower extremity was bumped to knock out any external rotation. Right lower extremity was scrubbed prepped draped using typical aseptic fashion. Once cleared by anesthesia right lower extremity was elevated exsanguinated tourniquet was inflated to 250 mmHg total tourniquet time was noted to be 19 minutes. Local seat infiltration technique was performed the site of the fifth metatarsal base using 20 cc of quarter percent Marcaine plain. Once cleared by anesthesia an incision was made and a dorsal right fifth metatarsal foot wound was excised there is approximately 10 to 15 cc of purulent drainage removed from the site the wound did extend down to the fifth metatarsal base swab cultures were taken of the purulent drainage. There is a second wound to the plantar lateral foot at the site of fifth metatarsal base this was removed both these were sent for tissue cultures. Residual nonviable tissue was excised using bone rongeurs. There was good bleeding healthy base noted to the wound with exposed fifth metatarsal dorsally. Bone culture and biopsy were taken using bone rongeurs. Decision to leave the fifth metatarsal base and attempt to maintain function of the peroneus brevis tendon was noted as the bone quality appeared to be intact. As removing the fifth metatarsal base would likely result in a severe cavus deformity due to the loss of function of the peroneus brevis tendon. Bone pathology was taken as well as bone culture from fifth metatarsal base using bone rongeurs. Site was flushed with copious amounts of normal sterile saline using low-pressure pulse lavage. Post lavage swab cultures were taken. Sites were dressed with Betadine soaked gauze 4 x 4's ABD pads Kerlix and Jason bandage. Tourniquet was let down prior to dressing of the foot wound. Total tourniquet time was noted to be 19 minutes. Patient transferred to PACU with vital signs stable and vascular status intact all digits for further monitoring prior to transfer back to floor. Patient tolerated procedure and anesthesia well apparent satisfactory condition. Patient will likely require long-term IV antibiotics via PICC line with prolonged nonweightbearing to right lower extremity as well as wound VAC treatment. Patient is high risk for BKA due to location of wound site severe deformity and diabetic status. Patient understands this as it was discussed with her in great detail and she is deferring BKA at any cost and wishes to proceed with limb salvage.
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
[2022-12-03 17:15] LABS: Bedside Glucose 163 mg/dL (74-106)
[2022-12-03] MEDS: Insulin Human 75/25 Kwickpen 50 UNIT SC (17:17)
[2022-12-03] MEDS: Insulin Lispro 100 UNIT/ML INSULN.PEN SC (17:18)
[2022-12-03] MEDS: Ascorbic Acid 500 MG Tablet 1000 MG PO ×2 (17:18→21:38)
[2022-12-03] MEDS: Juven (unflavored) Packet 1 PACKET PO (17:24)
[2022-12-03] MEDS: amLODIPine 5 MG Tablet PO (21:33)
[2022-12-03] MEDS: Ezetimibe 10 MG Tablet PO (21:33)
[2022-12-03] MEDS: Losartan Potassium 50 MG Tablet PO (21:36)
[2022-12-03 22:05] LABS: Bedside Glucose 90 mg/dL (74-106)
[2022-12-03] MEDS: Vancomycin IV 1,000 MG/200 ML BAG 200 MG IV (22:12)
[2022-12-03 22:21] LABS: Vancomycin, Trough Level 18.2 ug/mL (5.0-15.0)
--- NOTE | 2022-12-03 22:59 | PCM.RX.CS ---
Consult Pharmacy has been consulted to manage selected antiobiotic: Vancomycin Type of Consult: Follow-up Prior Doses of Antibiotics Received/Current Regimen: Medications Vancomycin HCl (Vancomycin) 1,000 mg in 200 mls @ 200 mls/hr IV Q24H CHRISSIE Last Admin: 12/03/22 22:12 Dose: 200 mls/hr Labs: Sodium 137 mmol/L (136-145) 12/03/22 04:20 Potassium 3.8 mmol/L (3.5-5.1) 12/03/22 04:20 Chloride 108 mmol/L (98-107) H 12/03/22 04:20 Carbon Dioxide 22.0 mmol/L (21.0-32.0) 12/03/22 04:20 Anion Gap 7 (5-15) 12/03/22 04:20 BUN 55 mg/dL (7-18) H 12/03/22 04:20 Creatinine 2.14 mg/dL (0.55-1.02) H 12/03/22 04:20 Est GFR (MDRD) Af Amer 30 mL/min (>60) L 12/03/22 04:20 Est GFR (MDRD) Non-Af 24 mL/min (>60) L 12/03/22 04:20 BUN/Creatinine Ratio 25.7 RATIO (10-20) H 12/03/22 04:20 Glucose 96 mg/dL (74-106) 12/03/22 04:20 Vancomycin Trough 18.2 ug/mL (5.0-15.0) H 12/03/22 21:53 Microbiology: Microbiology 12/03/22 12:53 Tissue Ulcer - 5th Toe Gram Stain - Final 12/03/22 12:42 Tissue - Right Foot Gram Stain - Final 12/03/22 12:55 Tissue Ulcer - 5th Toe Gram Stain - Final 12/03/22 12:49 Bone - 5th Toe Gram Stain - Final Weight used for dosin.8 kg Estimated Creatinine Clearance: 25.5 Goal Trough: 15-20 mcg/mL Pharmacy Plan for Drug Dosing: Vancomycin trough level of 18.2 was within the target range of 15-20. Will continue dosing at 1000mg q24h, and re-draw a level in two days. Pharmacy Service will continue to monitor and adjust dosing as required. Follow-Up Labs: Trough Vancomycin Labs to be done on [date and time ordered]: 12/05/22 @2030
[2022-12-04 02:17] VITALS: BP 130/59; PULSE 91; RESP 20; TEMP 36.8; O2SAT 100
[2022-12-04 03:01] LABS: Bedside Glucose 53 mg/dL (74-106)
[2022-12-04 03:01] LABS: Bedside Glucose 84 mg/dL (74-106)
[2022-12-04 04:25] LABS: Absolute Lymphocyte Count 1.05 X10^3/uL (0.83-4.51); Absolute Neutrophil Count 9.4 X10^3/uL (2.0-7.7); Basophil# 0.07 X10^3/uL; Basophil% 0.6 % (0-1); Eosinophil# 0.18 X10^3/uL; Eosinophils% 1.5 % (0-5); Hematocrit 28.9 % (37-47); Hemoglobin 8.9 g/dL (12.0-15.0); Lymphocyte # 1.05 X10^3/ul (0.83-4.51); Lymphocyte % 8.9 % (19-41); Mean Corp Hgb Conc 30.8 g/dL (32-36); Mean Corpuscular Hgb 27.6 pg (27.0-32.0); Mean Corpuscular Volume 89.5 fL (81-99); Mean Platelet Vol. 10.2 fl (6.2-12.0); Monocyte# 0.92 X10^3/uL; Monocyte% 7.8 % (0-10); NRBC Flagged by Analyzer 0 % (0-5); Neutrophil # 9.36 X10^3/uL (2.7-7.7); Neutrophil % 79.8 % (47-70); Platelet Count 363 K/mm3 (150-450); RBC Distribution Width CV 13.6 % (11.6-14.6); Red Blood Count 3.23 M/mm3 (4.2-5.4); White Blood Count 11.7 K/mm3 (4.4-11.0)
[2022-12-04 04:37] LABS: Anion Gap 9 (5-15); BUN 54 mg/dL (7-18); BUN/Creat Ratio 26.7 RATIO (10-20); Calcium,Total 8.1 mg/dL (8.5-10.1); Chloride 110 mmol/L (98-107); Creatinine, Serum 2.02 mg/dL (0.55-1.02); EST Glomerular Filtration Rate 26 mL/min (>60); Est Glom Filt Rate - Afr Amer 32 mL/min (>60); Estimated Creatinine Clearance 21.37 ml/min; Glucose 138 mg/dL (74-106); Potassium 3.9 mmol/L (3.5-5.1); Sodium Level 138 mmol/L (136-145)
[2022-12-04 07:32] VITALS: O2SAT 93
[2022-12-04 08:15] VITALS: BP 122/54; PULSE 88; RESP 18; TEMP 36.6; O2SAT 100
[2022-12-04] MEDS: Pantoprazole Sodium 20 MG Tablet PO (08:20)
[2022-12-04] MEDS: Insulin Human 75/25 Kwickpen 50 UNIT SC (08:20)
[2022-12-04] MEDS: Cholecalciferol (VIT D3) 25 MCG TABLET (1,000 UNITS) 50 MCG PO (08:21)
[2022-12-04] MEDS: Aspirin E.C. 81 MG Tablet PO (08:22)
[2022-12-04] MEDS: Losartan Potassium 50 MG Tablet PO (08:22)
[2022-12-04] MEDS: Juven (unflavored) Packet 1 PACKET PO (08:22)
[2022-12-04] MEDS: Multivitamin (Healthy Eyes) Capsule 1 CAP PO ×2 (08:22→20:55)
--- NOTE | 2022-12-04 10:16 | PCM.PN.ID ---
Physical Exam Narrative Feeling ok, no pain in foot, no fever, no n/v/d. Const alert and no apparent distress Resp normal air movement and clear to auscultation bilaterally Cardio regular rate and regular rhythm GI soft to palpation, non-tender and non-distended Skin Skin Narrative: foot wrapped ID ID: Route of nutrition/ use of supplements: [] Nutritional Intake: [] IV Site: [] Alas Catheter: [] Assessment & Plan Assessment/Plan (1) Osteomyelitis of foot, right, acute: PLAN: R foot osteo and abscess - now s/p I&D by Dr. Keith 12/03/22. Surg cx pending, GPC seen on gram stain. Will cont empiric vanc/zosyn. Will follow (2) Type 2 diabetes mellitus with peripheral neuropathy:
--- NOTE | 2022-12-04 10:36 | CASEMGMT ---
SW reviewed patient's chart and patient may need placement. SW met with patient. Introduced self and role at [facility]. SW discussed d/c plans. Patient said she would prefer to go home, but she thinks she will need to go to a facility. Patient said her preference would be [facility] and then [facility]. [facility] is not listed as being in network, but SW told patient that SW will check with [facility] to see if they take the insurance and if not SW will send a referral to [facility]. SW sent referral to [facility] and inquired if they take patient's insurance. Marylin Douglas HISTOTECHNICIAN RYNE
[2022-12-04 11:45] LABS: Bedside Glucose 64 mg/dL (74-106)
--- NOTE | 2022-12-04 13:28 | CASEMGMT ---
[facility] received referral and they are reviewing it now. Marylin Douglas CONTROL SYSTEMS DESIGNER [employer]FETERIA MONITOR
--- NOTE | 2022-12-04 14:01 | PCM.PROGNOTE ---
Subjective Subjective 67-year-old female seen bedside no pain. Denies constitutional's. No changes overnight. Objective Data Objective Data Vital Signs: Vital Signs Temp Pulse Resp BP Pulse Ox O2 Del Method O2 Flow Rate 97.8 F 88 18 122/54 H 100 Room Air 92 12/04/22 08:15 12/04/22 08:15 12/04/22 08:15 12/04/22 08:15 12/04/22 08:15 12/04/22 08:15 12/02/22 07:16 Oxygen Flow Rate (L/min) 92 Oxygen Delivery Method Room Air Weight: 83.8 kg Body Mass Index (BMI) 33.7 Intake & Output: Intake and Output for Last 24 Hours 12/02/22 12/03/22 12/04/22 23:59 23:59 23:59 Intake Total 2667.5 / 2667.5 670 / 1170 800 / 800 Balance 2667.5 / 2667.5 670 / 1170 800 / 800 Lab / Micro Data Result Diagrams: 12/04/22 04:20 12/04/22 04:20 Labs: Laboratory Results - last 24 hr 12/03/22 16:54: POC Glucose 163 H 12/03/22 21:31: POC Glucose 90 12/03/22 21:53: Vancomycin Trough 18.2 H 12/04/22 02:02: POC Glucose 53 L 12/04/22 02:27: POC Glucose 84 12/04/22 04:20: WBC 11.7 H, RBC 3.23 L, Hgb 8.9 L, Hct 28.9 L, MCV 89.5, MCH 27.6, MCHC 30.8 L, RDW Std Deviation 45.0 H, RDW Coeff of Steven 13.6, Plt Count 363, MPV 10.2, Immature Gran % (Auto) 1.400 H, Neut % (Auto) 79.8 H, Lymph % (Auto) 8.9 L, [place] % (Auto) 7.8, Eos % (Auto) 1.5, Baso % (Auto) 0.6, Absolute Neuts (auto) 9.4 H, Absolute Lymphs (auto) 1.05, Nucleated RBC % 0 12/04/22 04:20: Sodium 138, Potassium 3.9, Chloride 110 H, Carbon Dioxide 19.0 L, Anion Gap 9, BUN 54 H, Creatinine 2.02 H, Estim Creat Clear Calc 21.37, Est GFR (MDRD) Af Amer 32 L, Est GFR (MDRD) Non-Af 26 L, BUN/Creatinine Ratio 26.7 H, Glucose 138 H, Calcium 8.1 L 12/04/22 11:15: POC Glucose 64 L Micro: Microbiology 12/03/22 12:55 Tissue Ulcer - 5th Toe Gram Stain - Final 12/03/22 12:55 Tissue Ulcer - 5th Toe Wound Culture - Preliminary 12/03/22 12:53 Tissue Ulcer - 5th Toe Gram Stain - Final 12/03/22 12:53 Tissue Ulcer - 5th Toe Wound Culture - Preliminary 12/03/22 12:49 Bone - 5th Toe Gram Stain - Final 12/03/22 12:49 Bone - 5th Toe Wound Culture - Preliminary 12/03/22 12:42 Tissue - Right Foot Gram Stain - Final 12/03/22 12:42 Tissue - Right Foot Wound Culture - Preliminary 12/01/22 19:20 Blood Culture (Wb) - Right Hand Blood Culture - Preliminary No growth in 48 hours. 12/01/22 19:20 Blood Culture (Wb) - Right Hand Blood Culture - Preliminary No growth in 48 hours. Physical Exam Narrative Status unchanged. Full-thickness wound noted to dorsal lateral foot stable granular edges exposed fifth metatarsal base. Full-thickness wound noted to plantar fifth metatarsal base. Site appears to have slight sanguinous drainage. Resolving periwound erythema edema and warmth. No residual purulence. Assessment & Plan Assessment/Plan (1) Osteomyelitis of foot, right, acute: PLAN: Exam performed. Intraoperative cultures pending. We will plan for wound VAC right lower extremity. Site dressed with saline wet-to-dry and compression today. ID on board. Likely recommend PICC line. Patient will require prolonged nonweightbearing to allow for wound healing. We will likely plan for long-term bracing versus surgical reconstruction of the patient's foot. We will plan for this upon stabilization of the patient's right foot infection. We will continue to follow daily. (2) Diabetic infection of right foot: (3) Osteomyelitis:
--- NOTE | 2022-12-04 15:45 | WOUNDNOTE ---
wound photo: right foot
--- NOTE | 2022-12-04 15:46 | WOUNDNOTE ---
wound photo: right lateral foot
--- NOTE | 2022-12-04 15:57 | CASEMGMT ---
SW sent updates and therapy notes to [facility]. Plan: SNF pending acceptance and insurance approval. Marylin MICHELE
--- NOTE | 2022-12-04 16:17 | CASEMGMT ---
Social Work SW updated pt that [facility] is in network with insurance and is currently reviewing referral. SW will update pt once determination of acceptance has been made. Pt voices understanding. BING Reece
[2022-12-04 16:40] LABS: Bedside Glucose 114 mg/dL (74-106)
--- NOTE | 2022-12-04 16:42 | CASEMGMT ---
Social Work Con[facility]escent 0700 form started in the [employer] system. Awaiting accepting nursing facility in order to complete. Social work following. Plan: Pending SNF placement. -MEET Hein, CLAMSHELL OPERATOR
--- NOTE | 2022-12-04 16:52 | PN.HOSP_ITS ---
Reason for Visit Reason for Visit: Diagnoses Type 2 diabetes mellitus with diabetic polyneuropathy (12/01/22) Type 2 diabetes mellitus with diabetic peripheral angiopathy with gangrene (12/01/22) Type 2 diabetes mellitus with other skin complications (12/01/22) Local infection of the skin and subcutaneous tissue, unspecified (12/01/22) Non-pressure chronic ulcer of other part of right foot with fat layer exposed (12/01/22) Other acute osteomyelitis, right ankle and foot (12/01/22) Osteomyelitis, unspecified (12/01/22) Subjective Subjective She was seen and examined today, she is going to be going to a skilled care facility for short-term rehab services due to her need for antibiotic treatment. Patient does not complain of any fevers or chills today. Objective Data Objective Data Vital Signs: Vital Signs Temp Pulse Resp BP Pulse Ox O2 Del Method O2 Flow Rate 97.8 F 88 18 122/54 H 100 Room Air 92 12/04/22 08:15 12/04/22 08:15 12/04/22 08:15 12/04/22 08:15 12/04/22 08:15 12/04/22 08:15 12/02/22 07:16 Oxygen Flow Rate (L/min) 92 Oxygen Delivery Method Room Air Weight: 83.8 kg Body Mass Index (BMI) 33.7 Intake & Output: Intake and Output for Last 24 Hours 12/02/22 12/03/22 12/04/22 23:59 23:59 23:59 Intake Total 2667.5 / 2667.5 670 / 1170 800 / 800 Balance 2667.5 / 2667.5 670 / 1170 800 / 800 Lab / Micro Data Result Diagrams: 12/04/22 04:20 12/04/22 04:20 Labs: Laboratory Results - last 24 hr 12/03/22 16:54: POC Glucose 163 H 12/03/22 21:31: POC Glucose 90 12/03/22 21:53: Vancomycin Trough 18.2 H 12/04/22 02:02: POC Glucose 53 L 12/04/22 02:27: POC Glucose 84 12/04/22 04:20: WBC 11.7 H, RBC 3.23 L, Hgb 8.9 L, Hct 28.9 L, MCV 89.5, MCH 27.6, MCHC 30.8 L, RDW Std Deviation 45.0 H, RDW Coeff of Steven 13.6, Plt Count 363, MPV 10.2, Immature Gran % (Auto) 1.400 H, Neut % (Auto) 79.8 H, Lymph % (Auto) 8.9 L, [place] % (Auto) 7.8, Eos % (Auto) 1.5, Baso % (Auto) 0.6, Absolute Neuts (auto) 9.4 H, Absolute Lymphs (auto) 1.05, Nucleated RBC % 0 12/04/22 04:20: Sodium 138, Potassium 3.9, Chloride 110 H, Carbon Dioxide 19.0 L , Anion Gap 9, BUN 54 H, Creatinine 2.02 H, Estim Creat Clear Calc 21.37, Est GFR (MDRD) Af Amer 32 L, Est GFR (MDRD) Non-Af 26 L, BUN/Creatinine Ratio 26.7 H , Glucose 138 H, Calcium 8.1 L 12/04/22 11:15: POC Glucose 64 L 12/04/22 16:15: POC Glucose 114 H Micro: Microbiology 12/03/22 12:55 Tissue Ulcer - 5th Toe Gram Stain - Final 12/03/22 12:55 Tissue Ulcer - 5th Toe Wound Culture - Preliminary 12/03/22 12:53 Tissue Ulcer - 5th Toe Gram Stain - Final 12/03/22 12:53 Tissue Ulcer - 5th Toe Wound Culture - Preliminary 12/03/22 12:49 Bone - 5th Toe Gram Stain - Final 12/03/22 12:49 Bone - 5th Toe Wound Culture - Preliminary 12/03/22 12:42 Tissue - Right Foot Gram Stain - Final 12/03/22 12:42 Tissue - Right Foot Wound Culture - Preliminary 12/01/22 19:20 Blood Culture (Wb) - Right Hand Blood Culture - Preliminary No growth in 48 hours. 12/01/22 19:20 Blood Culture (Wb) - Right Hand Blood Culture - Preliminary No growth in 48 hours. Physical Exam Narrative alert, oriented x3, no apparent distress, average body habitus and healthy appearing General Appearance: cooperative, well kempt and well developed Orientation / Consciousness: awake, oriented to person, oriented to place and oriented to time HEENT normocephalic, head/scalp atraumatic and moist oral mucous membranes Eyes PERRL, EOMs intact bilaterally and conjunctivae normal Neck supple, no JVD, thyroid normal and no carotid bruits General: trachea midline Resp normal respiratory effort, no retractions, no use of accessory muscles and clear to auscultation bilaterally Auscultation: Negative for rales, rhonchi or wheezes Cardio regular rate, regular rhythm, S1 normal heart sound, S2 normal heart sound, no murmurs, no rub and no gallops GI normal to inspection, nondistended, normoactive bowel sounds, soft to palpation, non-tender and non-distended Extremity Extremity Narrative: Right lower leg is wrapped with surgical dressing, this was not removed for examination of the area Skin no rashes or lesions noted General Skin Exam: no breakdown Neuro oriented x3, CN's II-XII intact bilaterally, no focal motor deficits and no sensory deficits noted Sensorium / Orientation: awake and alert Speech: speech normal Psych affect normal Assessment & Plan Assessment/Plan (1) Diabetic infection of right foot: (2) Osteomyelitis of foot, right, acute: PLAN: Plan 1. Neuropathic infection of the right foot with osteomyelitis-again podiatry is seeing the patient, she remains on IV antibiotics at this time, patient is going to surgery today by podiatry, infectious diseases is continuing vancomycin and Zosyn at this time. #2 type 2 diabetes-patient's blood sugars will be monitored, sliding scale insulin will be administered #3 essential hypertension-patient will remain on her present medications #4 hyperlipidemia-patient is on Zetia #5 neuropathy secondary to type 2 diabetes-patient will remain on gabapentin Total clinical time spent by myself addressing the patient's medical issues, reviewing all of her data, and collaborating with the patient's care team: 35 minutes Charges/Coding Visit Charges Inpatient E&M: 52896 Subs Hosp L2
[2022-12-04] MEDS: Ascorbic Acid 500 MG Tablet 1000 MG PO (17:04)
[2022-12-04] MEDS: Gabapentin 300 MG Capsule PO (17:12)
[2022-12-04] MEDS: Insulin Human 75/25 Kwickpen 35 UNIT SC (17:28)
[2022-12-04 18:32] VITALS: BP 141/66; PULSE 82; RESP 18; TEMP 36.6; O2SAT 100
[2022-12-04 20:44] VITALS: BP 130/58; PULSE 85; RESP 18; TEMP 36.1; O2SAT 97
[2022-12-04] MEDS: Vancomycin IV 1,000 MG/200 ML BAG 200 MG IV (20:53)
[2022-12-04] MEDS: Ezetimibe 10 MG Tablet PO (20:55)
[2022-12-04] MEDS: amLODIPine 5 MG Tablet PO (20:55)
[2022-12-04 21:21] LABS: Bedside Glucose 73 mg/dL (74-106)
[2022-12-05 03:30] VITALS: BP 113/60; PULSE 81; RESP 18; TEMP 36.8; O2SAT 97
--- NOTE | 2022-12-05 03:56 | NURSING ---
pt woke up clammy. BG checked and is 64. patrica doones and apple juice given.
[2022-12-05] MEDS: Acetaminophen 325 MG Tablet 650 MG PO (06:13)
[2022-12-05 06:26] LABS: Bedside Glucose 102 mg/dL (74-106)
[2022-12-05 06:26] LABS: Bedside Glucose 64 mg/dL (74-106)
[2022-12-05] MEDS: Juven (unflavored) Packet 1 PACKET PO ×2 (07:58→17:10)
[2022-12-05] MEDS: Aspirin E.C. 81 MG Tablet PO (07:58)
[2022-12-05] MEDS: Ascorbic Acid 500 MG Tablet 1000 MG PO ×2 (07:59→17:11)
[2022-12-05] MEDS: Insulin Human 75/25 Kwickpen 35 UNIT SC ×2 (08:00→17:10)
[2022-12-05 08:33] VITALS: O2SAT 92
[2022-12-05 09:30] VITALS: BP 132/61; PULSE 72; RESP 18; TEMP 36.6; O2SAT 97
--- NOTE | 2022-12-05 09:37 | WOUNDNOTE ---
wound photo: right plantar foot
--- NOTE | 2022-12-05 09:38 | WOUNDNOTE ---
wound photo: right lateral foot
[2022-12-05] MEDS: Cholecalciferol (VIT D3) 25 MCG TABLET (1,000 UNITS) 50 MCG PO (10:34)
[2022-12-05] MEDS: Pantoprazole Sodium 20 MG Tablet PO (10:35)
[2022-12-05] MEDS: Losartan Potassium 50 MG Tablet PO (10:35)
[2022-12-05] MEDS: Multivitamin (Healthy Eyes) Capsule 1 CAP PO ×2 (10:35→20:47)
--- NOTE | 2022-12-05 11:06 | CASEMGMT ---
SW notified via [facility] that [facility] is now unable to accept due to insurance rep providing wrong information previously. Pt notified and requested referral to [facility]. Referral sent to [facility] via [facility]. Charisse Ornelas MARINE ELECTRICIAN, ASSISTANT PROFESSOR SCULPTURE
[2022-12-05 12:01] LABS: Bedside Glucose 149 mg/dL (74-106)
--- NOTE | 2022-12-05 12:47 | PN_ITS ---
Subjective Subjective No complaints today Denies constitutional symptoms Objective Data Objective Data Vital Signs: Vital Signs Temp Pulse Resp BP Pulse Ox O2 Del Method O2 Flow Rate 97.9 F 72 18 132/61 H 97 Room Air 92 12/05/22 09:30 12/05/22 09:30 12/05/22 09:30 12/05/22 09:30 12/05/22 09:30 12/05/22 10:48 12/02/22 07:16 Oxygen Flow Rate (L/min) 92 Oxygen Delivery Method Room Air Weight: 83.8 kg Body Mass Index (BMI) 33.7 Intake & Output: Intake and Output for Last 24 Hours 12/03/22 12/04/22 12/05/22 23:59 23:59 23:59 Intake Total 670 / 1170 1050 / 1050 100 / 100 Balance 670 / 1170 1050 / 1050 100 / 100 Lab / Micro Data Result Diagrams: 12/04/22 04:20 12/04/22 04:20 Labs: Laboratory Results - last 24 hr 12/04/22 16:15: POC Glucose 114 H 12/04/22 20:48: POC Glucose 73 L 12/05/22 03:55: POC Glucose 64 L 12/05/22 06:00: POC Glucose 102 12/05/22 11:32: POC Glucose 149 H Micro: Microbiology 12/03/22 12:49 Bone - 5th Toe Gram Stain - Final 12/03/22 12:49 Bone - 5th Toe Wound Culture - Preliminary Gram positive organism Gram positive jorge 12/03/22 12:55 Tissue Ulcer - 5th Toe Gram Stain - Final 12/03/22 12:55 Tissue Ulcer - 5th Toe Wound Culture - Preliminary Staphylococcus species Gram positive jorge 12/03/22 12:42 Tissue - Right Foot Gram Stain - Final 12/03/22 12:42 Tissue - Right Foot Wound Culture - Preliminary Gram positive organism Gram positive organism#2 Staphylococcus species 12/03/22 12:53 Tissue Ulcer - 5th Toe Gram Stain - Final 12/03/22 12:53 Tissue Ulcer - 5th Toe Wound Culture - Preliminary Gram positive organism 12/01/22 19:20 Blood Culture (Wb) - Right Hand Blood Culture - Preliminary No growth in 48 hours. 12/01/22 19:20 Blood Culture (Wb) - Right Hand Blood Culture - Preliminary No growth in 48 hours. Physical Exam Narrative neurovascular status unchanged no evidence of DVT bilaterally Wound vac intact to right foot Assessment & Plan Assessment/Plan (1) Osteomyelitis of foot, right, acute: PLAN: Exam performed Cultures + for staph species/gram + jorge, ID on boad manging abx bone pathology + for osteomyelitis Continue wound vac, next change thursday continue nonweightbearing on left (2) Diabetic infection of right foot: (3) Osteomyelitis: (4) Non-pressure chronic ulcer of other part of right foot with fat layer expo sed: (5) Type 2 diabetes mellitus with peripheral neuropathy:
--- NOTE | 2022-12-05 15:02 | PCM.PN.ID ---
Physical Exam Narrative Feeling better, no pain in foot, no fever Const alert and no apparent distress General Appearance: cooperative Eyes PERRL and EOMs intact bilaterally Neck supple and No nodes Resp normal air movement and clear to auscultation bilaterally Cardio regular rate and regular rhythm GI soft to palpation, non-tender and non-distended Skin Skin Narrative: foot wrapped ID ID: Route of nutrition/ use of supplements: [] Nutritional Intake: [] IV Site: [] Alas Catheter: [] Assessment & Plan Assessment/Plan (1) Osteomyelitis of foot, right, acute: PLAN: R foot osteo and abscess - now s/p I&D by Dr. Keith 12/03/22. Surg cx with staph and GPR, GPC seen on gram stain. Will cont empiric vanc/zosyn. Ordering picc and 6 weeks iv abx, stop date 01/14/23, ID followup in 2-3 weeks. Will follow (2) Type 2 diabetes mellitus with peripheral neuropathy:
[2022-12-05 15:19] VITALS: BP 139/64; PULSE 75; RESP 18; TEMP 36.5; O2SAT 97
--- NOTE | 2022-12-05 15:46 | PCM.PN.HOSP ---
Reason for Visit Reason for Visit: Diagnoses Type 2 diabetes mellitus with diabetic polyneuropathy (12/01/22) Type 2 diabetes mellitus with diabetic peripheral angiopathy with gangrene (12/01/22) Type 2 diabetes mellitus with other skin complications (12/01/22) Local infection of the skin and subcutaneous tissue, unspecified (12/01/22) Non-pressure chronic ulcer of other part of right foot with fat layer exposed (12/01/22) Other acute osteomyelitis, right ankle and foot (12/01/22) Osteomyelitis, unspecified (12/01/22) Subjective Subjective Patient was seen and examined today, she was declined at 2 different nursing homes for skilled care, she is in the process of picking a third halfway. Patient will be here through the weekend due to precertification needed for halfway placement. Patient denies any fever, chills, or significant surgical pain. Objective Data Objective Data Vital Signs: Vital Signs Temp Pulse Resp BP Pulse Ox O2 Del Method O2 Flow Rate 97.7 F L 75 18 139/64 H 97 Room Air 92 12/05/22 15:19 12/05/22 15:19 12/05/22 15:19 12/05/22 15:19 12/05/22 15:19 12/05/22 15:21 12/02/22 07:16 Oxygen Flow Rate (L/min) 92 Oxygen Delivery Method Room Air Weight: 83.8 kg Body Mass Index (BMI) 33.7 Intake & Output: Intake and Output for Last 24 Hours 12/03/22 12/04/22 12/05/22 23:59 23:59 23:59 Intake Total 670 / 1170 1050 / 1050 880 / 880 Balance 670 / 1170 1050 / 1050 880 / 880 Lab / Micro Data Result Diagrams: 12/04/22 04:20 12/04/22 04:20 Labs: Laboratory Results - last 24 hr 12/04/22 16:15: POC Glucose 114 H 12/04/22 20:48: POC Glucose 73 L 12/05/22 03:55: POC Glucose 64 L 12/05/22 06:00: POC Glucose 102 12/05/22 11:32: POC Glucose 149 H Micro: Microbiology 12/03/22 12:49 Bone - 5th Toe Gram Stain - Final 12/03/22 12:49 Bone - 5th Toe Wound Culture - Preliminary Gram positive organism Gram positive jorge 12/03/22 12:55 Tissue Ulcer - 5th Toe Gram Stain - Final 12/03/22 12:55 Tissue Ulcer - 5th Toe Wound Culture - Preliminary Staphylococcus species Gram positive jorge 12/03/22 12:42 Tissue - Right Foot Gram Stain - Final 12/03/22 12:42 Tissue - Right Foot Wound Culture - Preliminary Gram positive organism Gram positive organism#2 Staphylococcus species 12/03/22 12:53 Tissue Ulcer - 5th Toe Gram Stain - Final 12/03/22 12:53 Tissue Ulcer - 5th Toe Wound Culture - Preliminary Gram positive organism 12/01/22 19:20 Blood Culture (Wb) - Right Hand Blood Culture - Preliminary No growth in 48 hours. 12/01/22 19:20 Blood Culture (Wb) - Right Hand Blood Culture - Preliminary No growth in 48 hours. Physical Exam Narrative alert, oriented x3, no apparent distress, average body habitus and healthy appearing General Appearance: cooperative, well kempt and well developed Orientation / Consciousness: awake, oriented to person, oriented to place and oriented to time HEENT normocephalic, head/scalp atraumatic and moist oral mucous membranes Eyes PERRL, EOMs intact bilaterally and conjunctivae normal Neck supple, no JVD, thyroid normal and no carotid bruits General: trachea midline Resp normal respiratory effort, no retractions, no use of accessory muscles and clear to auscultation bilaterally Auscultation: Negative for rales, rhonchi or wheezes Cardio regular rate, regular rhythm, S1 normal heart sound, S2 normal heart sound, no murmurs, no rub and no gallops GI normal to inspection, nondistended, normoactive bowel sounds, soft to palpation, non-tender and non-distended Extremity Extremity Narrative: Right lower leg is wrapped with surgical dressing, this was not removed for inspection of the area Skin no rashes or lesions noted General Skin Exam: no breakdown Neuro oriented x3, CN's II-XII intact bilaterally, no focal motor deficits and no sensory deficits noted Sensorium / Orientation: awake and alert Speech: speech normal Psych affect normal Assessment & Plan Assessment/Plan (1) Osteomyelitis of foot, right, acute: (2) Diabetic infection of right foot: PLAN: Plan 1. Neuropathic infection of the right foot with osteomyelitis-preliminary wound culture is growing out staph species with a gram-positive jorge-again podiatry is seeing the patient, she remains on IV antibiotics at this time-Zosyn and vancomycin #2 type 2 diabetes-patient's blood sugars will be monitored, sliding scale insulin will be administered #3 essential hypertension-patient will remain on her present medications #4 hyperlipidemia-patient is on Zetia #5 neuropathy secondary to type 2 diabetes-patient will remain on gabapentin Total clinical time spent by myself addressing the patient's medical issues, reviewing all of her data, and collaborating with the patient's care team: 25 minutes Charges/Coding Visit Charges Inpatient E&M: 81185 Subs Hosp L1
--- NOTE | 2022-12-05 15:47 | CASEMGMT ---
SW provided pt with updated SNF choices with extended distance at patient's request. Pt was declined at [facility] and [facility] which were her first choices. Pt selected [facility] as her next choice followed by [facility]. Referrals sent to [facility] and [facility] via [facility]. Charisse Ornelas INSPECTOR SCREEN PRINTING, VALET ATTENDANT
[2022-12-05 16:50] LABS: Bedside Glucose 129 mg/dL (74-106)
[2022-12-05] MEDS: Gabapentin 300 MG Capsule PO (17:11)
--- NOTE | 2022-12-05 17:58 | CASEMGMT ---
[facility] is unable to accept. [facility] is reviewing case. SW updated pt and she is understanding. Plan: [facility], pending acceptance and precert BING Reece
[2022-12-05 20:40] VITALS: BP 147/71; PULSE 79; RESP 18; TEMP 36.9; O2SAT 99
[2022-12-05] MEDS: Vancomycin IV 1,000 MG/200 ML BAG 200 MG IV (20:44)
[2022-12-05] MEDS: Ezetimibe 10 MG Tablet PO (20:47)
[2022-12-05] MEDS: amLODIPine 5 MG Tablet PO (20:47)
[2022-12-05 21:15] LABS: Bedside Glucose 178 mg/dL (74-106)
--- NOTE | 2022-12-05 22:16 | PCM.RX.CS ---
Consult Pharmacy has been consulted to manage selected antiobiotic: Vancomycin Type of Consult: Follow-up Prior Doses of Antibiotics Received/Current Regimen: Medications Discontinued Medications Vancomycin HCl (Vancomycin) 1,000 mg in 200 mls @ 200 mls/hr IV Q24H CHRISSIE Stop: 12/05/22 22:00 Last Admin: 12/05/22 20:44 Dose: 200 mls/hr Labs: Sodium 138 mmol/L (136-145) 12/04/22 04:20 Potassium 3.9 mmol/L (3.5-5.1) 12/04/22 04:20 Chloride 110 mmol/L (98-107) H 12/04/22 04:20 Carbon Dioxide 19.0 mmol/L (21.0-32.0) L 12/04/22 04:20 Anion Gap 9 (5-15) 12/04/22 04:20 BUN 54 mg/dL (7-18) H 12/04/22 04:20 Creatinine 2.02 mg/dL (0.55-1.02) H 12/04/22 04:20 Est GFR (MDRD) Af Amer 32 mL/min (>60) L 12/04/22 04:20 Est GFR (MDRD) Non-Af 26 mL/min (>60) L 12/04/22 04:20 BUN/Creatinine Ratio 26.7 RATIO (10-20) H 12/04/22 04:20 Glucose 138 mg/dL (74-106) H 12/04/22 04:20 Vancomycin Trough 23.0 ug/mL (5.0-15.0) H 12/05/22 20:40 Microbiology: Microbiology 12/03/22 12:49 Bone - 5th Toe Gram Stain - Final 12/03/22 12:49 Bone - 5th Toe Wound Culture - Preliminary Gram positive organism Gram positive jorge 12/03/22 12:55 Tissue Ulcer - 5th Toe Gram Stain - Final 12/03/22 12:55 Tissue Ulcer - 5th Toe Wound Culture - Preliminary Staphylococcus species Gram positive jorge 12/03/22 12:42 Tissue - Right Foot Gram Stain - Final 12/03/22 12:42 Tissue - Right Foot Wound Culture - Preliminary Gram positive organism Gram positive organism#2 Staphylococcus species 12/03/22 12:53 Tissue Ulcer - 5th Toe Gram Stain - Final 12/03/22 12:53 Tissue Ulcer - 5th Toe Wound Culture - Preliminary Gram positive organism 12/01/22 19:20 Blood Culture (Wb) - Right Hand Blood Culture - Preliminary No growth in 48 hours. 12/01/22 19:20 Blood Culture (Wb) - Right Hand Blood Culture - Preliminary No growth in 48 hours. Weight used for dosin.8 kg Estimated Creatinine Clearance: 27.1 Goal Trough: 15-20 mcg/mL Pharmacy Plan for Drug Dosing: Vancomycin trough level was high at 23.0. The next dose had already been hung prior to lab results being received. The current dose order was stopped. Another level will be taken in 24 hours and further dosing determined from that result. Pharmacy Service will continue to monitor and adjust dosing as required. Follow-Up Labs: Trough Vancomycin Labs to be done on [date and time ordered]: 12/06/22 @2030
[2022-12-06] VITALS (8 sets, daily range): BP systolic 128–140; BP diastolic 58–70; PULSE 72–87; RESP 16–18; TEMP 36.6–38.2; O2SAT 95–98
[2022-12-06] MEDS: Acetaminophen 325 MG Tablet 650 MG PO (03:53)
[2022-12-06 06:15] LABS: Bedside Glucose 144 mg/dL (74-106)
[2022-12-06] MEDS: Cholecalciferol (VIT D3) 25 MCG TABLET (1,000 UNITS) 50 MCG PO (08:36)
[2022-12-06] MEDS: Ascorbic Acid 500 MG Tablet 1000 MG PO ×2 (08:37→17:06)
[2022-12-06] MEDS: Aspirin E.C. 81 MG Tablet PO (08:37)
[2022-12-06] MEDS: Juven (unflavored) Packet 1 PACKET PO ×2 (08:37→17:06)
[2022-12-06] MEDS: Multivitamin (Healthy Eyes) Capsule 1 CAP PO ×2 (08:37→20:55)
[2022-12-06] MEDS: Losartan Potassium 50 MG Tablet PO (08:37)
[2022-12-06] MEDS: Insulin Human 75/25 Kwickpen 35 UNIT SC ×2 (08:38→17:31)
[2022-12-06] MEDS: Pantoprazole Sodium 20 MG Tablet PO (08:40)
--- NOTE | 2022-12-06 10:20 | PN_ITS ---
Subjective Subjective 67-year-old female seen bedside. No pain today. Denies constitutional's. No other complaints. Objective Data Objective Data Vital Signs: Vital Signs Temp Pulse Resp BP Pulse Ox O2 Del Method O2 Flow Rate 97.8 F 80 16 130/66 H 96 Room Air 92 12/06/22 08:32 12/06/22 09:06 12/06/22 08:32 12/06/22 08:32 12/06/22 08:32 12/06/22 08:32 12/02/22 07:16 Oxygen Flow Rate (L/min) 92 Oxygen Delivery Method Room Air Weight: 83.8 kg Body Mass Index (BMI) 33.7 Intake & Output: Intake and Output for Last 24 Hours 12/04/22 12/05/22 12/06/22 23:59 23:59 23:59 Intake Total 1050 / 1050 1930 / 1930 191.67 / 191.67 Output Total 500 / 500 Balance 1050 / 1050 1430 / 1430 191.67 / 191.67 Lab / Micro Data Result Diagrams: 12/04/22 04:20 12/04/22 04:20 Labs: Laboratory Results - last 24 hr 12/05/22 11:32: POC Glucose 149 H 12/05/22 16:28: POC Glucose 129 H 12/05/22 20:40: Vancomycin Trough 23.0 H 12/05/22 20:49: POC Glucose 178 H 12/06/22 05:55: POC Glucose 144 H Micro: Microbiology 12/03/22 12:42 Tissue - Right Foot Gram Stain - Final 12/03/22 12:42 Tissue - Right Foot Wound Culture - Preliminary Gram positive organism Gram positive organism#2 Staphylococcus lugdunensis 12/03/22 12:42 Tissue - Right Foot Anaerobic Culture - Final No anaerobic bacteria isolated. 12/03/22 12:55 Tissue Ulcer - 5th Toe Gram Stain - Final 12/03/22 12:55 Tissue Ulcer - 5th Toe Wound Culture - Preliminary Staphylococcus warneri Corynebacterium striatum 12/03/22 12:55 Tissue Ulcer - 5th Toe Anaerobic Culture - Final No anaerobic bacteria isolated. 12/03/22 12:53 Tissue Ulcer - 5th Toe Gram Stain - Final 12/03/22 12:53 Tissue Ulcer - 5th Toe Wound Culture - Preliminary Gram positive organism 12/03/22 12:53 Tissue Ulcer - 5th Toe Anaerobic Culture - Final No anaerobic bacteria isolated. 12/03/22 12:49 Bone - 5th Toe Gram Stain - Final 12/03/22 12:49 Bone - 5th Toe Wound Culture - Preliminary Gram positive organism Gram positive jorge 12/01/22 19:20 Blood Culture (Wb) - Right Hand Blood Culture - Preliminary No growth in 48 hours. 12/01/22 19:20 Blood Culture (Wb) - Right Hand Blood Culture - Preliminary No growth in 48 hours. Physical Exam Narrative Wound VAC left intact to right foot. No signs of DVT. Assessment & Plan Assessment/Plan (1) Osteomyelitis of foot, right, acute: PLAN: Exam performed Labs/vitals stable. Cultures + for staphylococcus warnari and corynebacterium striatum bone pathology + for osteomyelitis Continue wound vac, next change thursday continue nonweightbearing on right foot (2) Diabetic infection of right foot: (3) Osteomyelitis: (4) Non-pressure chronic ulcer of other part of right foot with fat layer ex posed: (5) Type 2 diabetes mellitus with peripheral neuropathy:
[2022-12-06 11:26] LABS: Bedside Glucose 304 mg/dL (74-106)
[2022-12-06] MEDS: Insulin Lispro 100 UNIT/ML INSULN.PEN SC ×3 (12:03→20:55)
--- NOTE | 2022-12-06 14:55 | PCM.PN.HOSP ---
Reason for Visit Reason for Visit: Diagnoses Type 2 diabetes mellitus with diabetic polyneuropathy (12/01/22) Type 2 diabetes mellitus with diabetic peripheral angiopathy with gangrene (12/01/22) Type 2 diabetes mellitus with other skin complications (12/01/22) Local infection of the skin and subcutaneous tissue, unspecified (12/01/22) Non-pressure chronic ulcer of other part of right foot with fat layer exposed (12/01/22) Other acute osteomyelitis, right ankle and foot (12/01/22) Osteomyelitis, unspecified (12/01/22) Subjective Subjective Patient was seen and examined today, she has no complaints of any chills or fever. Wound VAC is in place on her right foot Objective Data Objective Data Vital Signs: Vital Signs Temp Pulse Resp BP Pulse Ox O2 Del Method O2 Flow Rate 97.8 F 80 18 128/58 H 95 Room Air 92 12/06/22 14:04 12/06/22 14:14 12/06/22 14:04 12/06/22 14:04 12/06/22 14:04 12/06/22 14:04 12/02/22 07:16 Oxygen Flow Rate (L/min) 92 Oxygen Delivery Method Room Air Weight: 83.8 kg Body Mass Index (BMI) 33.7 Intake & Output: Intake and Output for Last 24 Hours 12/04/22 12/05/22 12/06/22 23:59 23:59 23:59 Intake Total 1050 / 1050 1930 / 1930 241.67 / 241.67 Output Total 500 / 500 Balance 1050 / 1050 1430 / 1430 241.67 / 241.67 Lab / Micro Data Result Diagrams: 12/04/22 04:20 12/04/22 04:20 Labs: Laboratory Results - last 24 hr 12/05/22 16:28: POC Glucose 129 H 12/05/22 20:40: Vancomycin Trough 23.0 H 12/05/22 20:49: POC Glucose 178 H 12/06/22 05:55: POC Glucose 144 H 12/06/22 11:05: POC Glucose 304 H Micro: Microbiology 12/03/22 12:55 Tissue Ulcer - 5th Toe Gram Stain - Final 12/03/22 12:55 Tissue Ulcer - 5th Toe Wound Culture - Final Staphylococcus warneri Corynebacterium striatum 12/03/22 12:55 Tissue Ulcer - 5th Toe Anaerobic Culture - Final No anaerobic bacteria isolated. 12/03/22 12:53 Tissue Ulcer - 5th Toe Gram Stain - Final 12/03/22 12:53 Tissue Ulcer - 5th Toe Wound Culture - Final Strep anginosus 12/03/22 12:53 Tissue Ulcer - 5th Toe Anaerobic Culture - Final No anaerobic bacteria isolated. 12/03/22 12:42 Tissue - Right Foot Gram Stain - Final 12/03/22 12:42 Tissue - Right Foot Wound Culture - Preliminary Kocuria kristinae Streptococcus viridans group Staphylococcus lugdunensis 12/03/22 12:42 Tissue - Right Foot Anaerobic Culture - Final No anaerobic bacteria isolated. 12/03/22 12:49 Bone - 5th Toe Gram Stain - Final 12/03/22 12:49 Bone - 5th Toe Wound Culture - Preliminary Gram positive organism Gram positive jorge 12/01/22 19:20 Blood Culture (Wb) - Right Hand Blood Culture - Preliminary No growth in 48 hours. 12/01/22 19:20 Blood Culture (Wb) - Right Hand Blood Culture - Preliminary No growth in 48 hours. Physical Exam Narrative alert, oriented x3, no apparent distress, average body habitus and healthy appearing General Appearance: cooperative, well kempt and well developed Orientation / Consciousness: awake, oriented to person, oriented to place and oriented to time HEENT normocephalic, head/scalp atraumatic and moist oral mucous membranes Eyes PERRL, EOMs intact bilaterally and conjunctivae normal Neck supple, no JVD, thyroid normal and no carotid bruits General: trachea midline Resp normal respiratory effort, no retractions, no use of accessory muscles and clear to auscultation bilaterally Auscultation: Negative for rales, rhonchi or wheezes Cardio regular rate, regular rhythm, S1 normal heart sound, S2 normal heart sound, no murmurs, no rub and no gallops GI normal to inspection, nondistended, normoactive bowel sounds, soft to palpation, non-tender and non-distended Extremity Extremity Narrative: Right lower leg is wrapped with surgical dressing, this was not removed for inspection of the area Skin no rashes or lesions noted General Skin Exam: no breakdown Neuro oriented x3, CN's II-XII intact bilaterally, no focal motor deficits and no sensory deficits noted Sensorium / Orientation: awake and alert Speech: speech normal Psych affect normal Assessment & Plan Assessment/Plan (1) Osteomyelitis of foot, right, acute: (2) Diabetic infection of right foot: PLAN: Plan 1. Neuropathic infection of the right foot with osteomyelitis-preliminary wound culture is growing out staph species with a gram-positive jorge-again podiatry is seeing the patient, she remains on IV antibiotics at this time-Zosyn and vancomycin #2 type 2 diabetes-patient's blood sugars will be monitored, sliding scale insulin will be administered #3 essential hypertension-patient will remain on her present medications #4 hyperlipidemia-patient is on Zetia #5 neuropathy secondary to type 2 diabetes-patient will remain on gabapentin Total clinical time spent by myself addressing the patient's medical issues, reviewing all of her data, and collaborating with the patient's care team: 25 minutes Charges/Coding Visit Charges Inpatient E&M: 78990 [facility] Hosp L1
[2022-12-06 16:50] LABS: Bedside Glucose 296 mg/dL (74-106)
[2022-12-06] MEDS: Gabapentin 300 MG Capsule PO (17:04)
[2022-12-06 20:49] LABS: Vancomycin, Trough Level 22.5 ug/mL (5.0-15.0)
[2022-12-06] MEDS: Ezetimibe 10 MG Tablet PO (20:55)
[2022-12-06] MEDS: amLODIPine 5 MG Tablet PO (20:55)
--- NOTE | 2022-12-06 21:02 | PCM.RX.CS ---
Consult Pharmacy has been consulted to manage selected antiobiotic: Vancomycin Type of Consult: Follow-up Prior Doses of Antibiotics Received/Current Regimen: Medications Discontinued Medications Vancomycin HCl (Vancomycin) 1,000 mg in 200 mls @ 200 mls/hr IV Q24H [facility]SIE Stop: 12/05/22 22:00 Last Admin: 12/05/22 21:44 Dose: Infused Labs: Sodium 138 mmol/L (136-145) 12/04/22 04:20 Potassium 3.9 mmol/L (3.5-5.1) 12/04/22 04:20 Chloride 110 mmol/L (98-107) H 12/04/22 04:20 Carbon Dioxide 19.0 mmol/L (21.0-32.0) L 12/04/22 04:20 Anion Gap 9 (5-15) 12/04/22 04:20 BUN 54 mg/dL (7-18) H 12/04/22 04:20 Creatinine 2.02 mg/dL (0.55-1.02) H 12/04/22 04:20 Est GFR (MDRD) Af Amer 32 mL/min (>60) L 12/04/22 04:20 Est GFR (MDRD) Non-Af 26 mL/min (>60) L 12/04/22 04:20 BUN/Creatinine Ratio 26.7 RATIO (10-20) H 12/04/22 04:20 Glucose 138 mg/dL (74-106) H 12/04/22 04:20 Vancomycin Trough 22.5 ug/mL (5.0-15.0) H 12/06/22 20:20 Microbiology: Microbiology 12/03/22 12:55 Tissue Ulcer - 5th Toe Gram Stain - Final 12/03/22 12:55 Tissue Ulcer - 5th Toe Wound Culture - Final Staphylococcus warneri Corynebacterium striatum 12/03/22 12:55 Tissue Ulcer - 5th Toe Anaerobic Culture - Final No anaerobic bacteria isolated. 12/03/22 12:53 Tissue Ulcer - 5th Toe Gram Stain - Final 12/03/22 12:53 Tissue Ulcer - 5th Toe Wound Culture - Final Strep anginosus 12/03/22 12:53 Tissue Ulcer - 5th Toe Anaerobic Culture - Final No anaerobic bacteria isolated. 12/03/22 12:42 Tissue - Right Foot Gram Stain - Final 12/03/22 12:42 Tissue - Right Foot Wound Culture - Preliminary Kocuria kristinae Streptococcus viridans group Staphylococcus lugdunensis 12/03/22 12:42 Tissue - Right Foot Anaerobic Culture - Final No anaerobic bacteria isolated. 12/03/22 12:49 Bone - 5th Toe Gram Stain - Final 12/03/22 12:49 Bone - 5th Toe Wound Culture - Preliminary Gram positive organism Gram positive jorge 12/01/22 19:20 Blood Culture (Wb) - Right Hand Blood Culture - Preliminary No growth in 48 hours. 12/01/22 19:20 Blood Culture (Wb) - Right Hand Blood Culture - Preliminary No growth in 48 hours. Weight used for dosin.8 kg Estimated Creatinine Clearance: 27.1 Goal Trough: 15-20 mcg/mL Pharmacy Plan for Drug Dosing: Vancomycin level was still high at 22.5, drawn 23.6 hours post-dose. Will continue to hold dosing, and will draw a random vanco level in 24 hours to determine further dosing. Pharmacy Service will continue to monitor and adjust dosing as required. Follow-Up Labs: Trough Vancomycin - random Labs to be done on [date and time ordered]: 12/07/22 @0698
[2022-12-07] VITALS (7 sets, daily range): BP systolic 125–133; BP diastolic 58–65; PULSE 70–90; RESP 16–18; TEMP 36.6–37; O2SAT 96–99
[2022-12-07 00:30] LABS: Bedside Glucose 231 mg/dL (74-106)
[2022-12-07 07:16] LABS: Bedside Glucose 76 mg/dL (74-106)
[2022-12-07] MEDS: Insulin Human 75/25 Kwickpen 35 UNIT SC (08:28)
[2022-12-07] MEDS: Juven (unflavored) Packet 1 PACKET PO ×2 (08:29→16:52)
[2022-12-07] MEDS: Aspirin E.C. 81 MG Tablet PO (08:30)
[2022-12-07] MEDS: Multivitamin (Healthy Eyes) Capsule 1 CAP PO ×2 (08:31→21:52)
[2022-12-07] MEDS: Ascorbic Acid 500 MG Tablet 1000 MG PO ×2 (08:31→16:53)
[2022-12-07] MEDS: Pantoprazole Sodium 20 MG Tablet PO (08:31)
[2022-12-07] MEDS: Losartan Potassium 50 MG Tablet PO (08:31)
[2022-12-07] MEDS: Cholecalciferol (VIT D3) 25 MCG TABLET (1,000 UNITS) 50 MCG PO (08:32)
--- NOTE | 2022-12-07 09:46 | PCM.PROGNOTE ---
Subjective Subjective 67-year-old female seen bedside. No pain today. Denies constitutional's. No other complaints. Objective Data Objective Data Vital Signs: Vital Signs Temp Pulse Resp BP Pulse Ox O2 Del Method O2 Flow Rate 97.8 F 73 18 126/58 H 99 Room Air 92 12/07/22 08:37 12/07/22 08:37 12/07/22 08:37 12/07/22 08:37 12/07/22 08:37 12/07/22 08:37 12/02/22 07:16 Oxygen Flow Rate (L/min) 92 Oxygen Delivery Method Room Air Weight: 83.8 kg Body Mass Index (BMI) 33.7 Intake & Output: Intake and Output for Last 24 Hours 12/05/22 12/06/22 12/07/22 23:59 23:59 23:59 Intake Total 1930 / 1930 313.42 / 313.42 50 / 50 Output Total 500 / 500 Balance 1430 / 1430 313.42 / 313.42 50 / 50 Lab / Micro Data Result Diagrams: 12/04/22 04:20 12/04/22 04:20 Labs: Laboratory Results - last 24 hr 12/06/22 11:05: POC Glucose 304 H 12/06/22 16:30: POC Glucose 296 H 12/06/22 20:20: Vancomycin Trough 22.5 H 12/06/22 20:54: POC Glucose 231 H 12/07/22 06:44: POC Glucose 76 Micro: Microbiology 12/03/22 12:42 Tissue - Right Foot Gram Stain - Final 12/03/22 12:42 Tissue - Right Foot Wound Culture - Final Kocuria kristinae Streptococcus thoraltensis Staphylococcus lugdunensis 12/03/22 12:42 Tissue - Right Foot Anaerobic Culture - Final No anaerobic bacteria isolated. 12/03/22 12:49 Bone - 5th Toe Gram Stain - Final 12/03/22 12:49 Bone - 5th Toe Wound Culture - Preliminary Corynebacterium striatum 12/01/22 19:20 Blood Culture (Wb) - Right Hand Blood Culture - Final No growth in 5 days. 12/01/22 19:20 Blood Culture (Wb) - Right Hand Blood Culture - Final No growth in 5 days. 12/03/22 12:55 Tissue Ulcer - 5th Toe Gram Stain - Final 12/03/22 12:55 Tissue Ulcer - 5th Toe Wound Culture - Final Staphylococcus warneri Corynebacterium striatum 12/03/22 12:55 Tissue Ulcer - 5th Toe Anaerobic Culture - Final No anaerobic bacteria isolated. 12/03/22 12:53 Tissue Ulcer - 5th Toe Gram Stain - Final 12/03/22 12:53 Tissue Ulcer - 5th Toe Wound Culture - Final Strep anginosus 12/03/22 12:53 Tissue Ulcer - 5th Toe Anaerobic Culture - Final No anaerobic bacteria isolated. Physical Exam Narrative Wound VAC in place to right foot, no issues. Const alert and oriented x3 Assessment & Plan Assessment/Plan (1) Osteomyelitis of foot, right, acute: PLAN: Exam performed Labs/vitals stable. White blood cell count down to 11. CRP reordered to ensure continued resolution of infection Cultures + for staphylococcus warnari and corynebacterium striatum and strep anginosus. Patient receiving IV vancomycin and Zosyn. PICC line placed. Awaiting final ID recs. bone pathology + for osteomyelitis Continue wound vac, next change thursday continue nonweightbearing on right foot. (2) Diabetic infection of right foot: (3) Osteomyelitis: (4) Non-pressure chronic ulcer of other part of right foot with fat layer exposed: (5) Type 2 diabetes mellitus with peripheral neuropathy:
[2022-12-07] MEDS: Insulin Lispro 100 UNIT/ML INSULN.PEN SC ×2 (11:33→16:52)
[2022-12-07 11:35] LABS: Bedside Glucose 268 mg/dL (74-106)
--- NOTE | 2022-12-07 16:22 | NURSING ---
Dr Mcdonald notified that blood glucose now is 167, this am it was 76, she is supposed to get humalog 2units and humalog 75/25, 35 units. He ordered to decrease it to 25 units bid.
[2022-12-07 16:30] LABS: Bedside Glucose 167 mg/dL (74-106)
[2022-12-07] MEDS: Insulin Human 75/25 Kwickpen 25 UNIT SC (16:53)
[2022-12-07] MEDS: Gabapentin 300 MG Capsule PO (17:01)
--- NOTE | 2022-12-07 17:51 | PN.HOSP_ITS ---
Reason for Visit Reason for Visit: Diagnoses Type 2 diabetes mellitus with diabetic polyneuropathy (12/01/22) Type 2 diabetes mellitus with diabetic peripheral angiopathy with gangrene (12/01/22) Type 2 diabetes mellitus with other skin complications (12/01/22) Local infection of the skin and subcutaneous tissue, unspecified (12/01/22) Non-pressure chronic ulcer of other part of right foot with fat layer exposed (12/01/22) Other acute osteomyelitis, right ankle and foot (12/01/22) Osteomyelitis, unspecified (12/01/22) Subjective Subjective Patient was seen and examined today, I had to adjust her insulin downward due to low blood sugars. Patient denies any chills or fever. Objective Data Objective Data Vital Signs: Vital Signs Temp Pulse Resp BP Pulse Ox O2 Del Method O2 Flow Rate 98.1 F 80 16 130/65 H 98 Room Air 92 12/07/22 14:44 12/07/22 14:45 12/07/22 14:44 12/07/22 14:44 12/07/22 14:44 12/07/22 14:45 12/02/22 07:16 Oxygen Flow Rate (L/min) 92 Oxygen Delivery Method Room Air Weight: 83.8 kg Body Mass Index (BMI) 33.7 Intake & Output: Intake and Output for Last 24 Hours 12/05/22 12/06/22 12/07/22 23:59 23:59 23:59 Intake Total 1930 / 1930 313.42 / 313.42 100 / 100 Output Total 500 / 500 900 / 900 Balance 1430 / 1430 313.42 / 313.42 -800 / -800 Lab / Micro Data Result Diagrams: 12/04/22 04:20 12/04/22 04:20 Labs: Laboratory Results - last 24 hr 12/06/22 20:20: Vancomycin Trough 22.5 H 12/06/22 20:54: POC Glucose 231 H 12/07/22 06:44: POC Glucose 76 12/07/22 09:45: C-React Prot Ext Range 18.30 H 12/07/22 11:14: POC Glucose 268 H 12/07/22 16:10: POC Glucose 167 H Micro: Microbiology 12/03/22 12:49 Bone - 5th Toe Gram Stain - Final 12/03/22 12:49 Bone - 5th Toe Wound Culture - Preliminary Corynebacterium striatum 12/03/22 12:49 Bone - 5th Toe Anaerobic Culture - Final No anaerobic bacteria isolated. 12/03/22 12:42 Tissue - Right Foot Gram Stain - Final 12/03/22 12:42 Tissue - Right Foot Wound Culture - Final Kocuria kristinae Streptococcus thoraltensis Staphylococcus lugdunensis 12/03/22 12:42 Tissue - Right Foot Anaerobic Culture - Final No anaerobic bacteria isolated. 12/01/22 19:20 Blood Culture (Wb) - Right Hand Blood Culture - Final No growth in 5 days. 12/01/22 19:20 Blood Culture (Wb) - Right Hand Blood Culture - Final No growth in 5 days. 12/03/22 12:55 Tissue Ulcer - 5th Toe Gram Stain - Final 12/03/22 12:55 Tissue Ulcer - 5th Toe Wound Culture - Final Staphylococcus warneri Corynebacterium striatum 12/03/22 12:55 Tissue Ulcer - 5th Toe Anaerobic Culture - Final No anaerobic bacteria isolated. 12/03/22 12:53 Tissue Ulcer - 5th Toe Gram Stain - Final 12/03/22 12:53 Tissue Ulcer - 5th Toe Wound Culture - Final Strep anginosus 12/03/22 12:53 Tissue Ulcer - 5th Toe Anaerobic Culture - Final No anaerobic bacteria isolated. Physical Exam Narrative alert, oriented x3, no apparent distress, average body habitus and healthy appearing General Appearance: cooperative, well kempt and well developed Orientation / Consciousness: awake, oriented to person, oriented to place and oriented to time HEENT normocephalic, head/scalp atraumatic and moist oral mucous membranes Eyes PERRL, EOMs intact bilaterally and conjunctivae normal Neck supple, no JVD, thyroid normal and no carotid bruits General: trachea midline Resp normal respiratory effort, no retractions, no use of accessory muscles and clear to auscultation bilaterally Auscultation: Negative for rales, rhonchi or wheezes Cardio regular rate, regular rhythm, S1 normal heart sound, S2 normal heart sound, no murmurs, no rub and no gallops GI normal to inspection, nondistended, normoactive bowel sounds, soft to palpation, non-tender and non-distended Extremity Extremity Narrative: Right lower leg is wrapped with surgical dressing, this was not removed for inspection of the area Skin no rashes or lesions noted General Skin Exam: no breakdown Neuro oriented x3, CN's II-XII intact bilaterally, no focal motor deficits and no sensory deficits noted Sensorium / Orientation: awake and alert Speech: speech normal Psych affect normal Assessment & Plan Assessment/Plan (1) Non-pressure chronic ulcer of other part of right foot with fat layer exposed: (2) Osteomyelitis of foot, right, acute: (3) Diabetic infection of right foot: PLAN: Plan 1. Neuropathic infection of the right foot with osteomyelitis-preliminary wound culture is growing out staph species with a gram-positive jorge-again podiatry is seeing the patient, she remains on IV antibiotics at this time-Zosyn and vancomycin #2 type 2 diabetes-patient's blood sugars will be monitored, sliding scale insulin will be administered #3 essential hypertension-patient will remain on her present medications #4 hyperlipidemia-patient is on Zetia #5 neuropathy secondary to type 2 diabetes-patient will remain on gabapentin Total clinical time spent by myself addressing the patient's medical issues, reviewing all of her data, and collaborating with the patient's care team: 25 minutes Charges/Coding Visit Charges Inpatient E&M: 26555 [facility] Hosp L1
[2022-12-07 21:09] LABS: Vancomycin, Random Level 17.1 ug/mL (0.0-15.0)
[2022-12-07] MEDS: Ezetimibe 10 MG Tablet PO (21:52)
[2022-12-07] MEDS: amLODIPine 5 MG Tablet PO (21:52)
--- NOTE | 2022-12-07 22:01 | PCM.RX.CS ---
Consult Pharmacy has been consulted to manage selected antiobiotic: Vancomycin Type of Consult: Follow-up Prior Doses of Antibiotics Received/Current Regimen: Medications Vancomycin HCl () 500 mg in 100 mls @ 100 mls/hr IV Q24H [facility]E Labs: Sodium 138 mmol/L (136-145) 12/04/22 04:20 Potassium 3.9 mmol/L (3.5-5.1) 12/04/22 04:20 Chloride 110 mmol/L (98-107) H 12/04/22 04:20 Carbon Dioxide 19.0 mmol/L (21.0-32.0) L 12/04/22 04:20 Anion Gap 9 (5-15) 12/04/22 04:20 BUN 54 mg/dL (7-18) H 12/04/22 04:20 Creatinine 2.02 mg/dL (0.55-1.02) H 12/04/22 04:20 Est GFR (MDRD) Af Amer 32 mL/min (>60) L 12/04/22 04:20 Est GFR (MDRD) Non-Af 26 mL/min (>60) L 12/04/22 04:20 BUN/Creatinine Ratio 26.7 RATIO (10-20) H 12/04/22 04:20 Glucose 138 mg/dL (74-106) H 12/04/22 04:20 Vancomycin Trough 22.5 ug/mL (5.0-15.0) H 12/06/22 20:20 Random Vancomycin 17.1 ug/mL (0.0-15.0) H 12/07/22 20:30 Microbiology: Microbiology 12/03/22 12:49 Bone - 5th Toe Gram Stain - Final 12/03/22 12:49 Bone - 5th Toe Wound Culture - Preliminary Corynebacterium striatum 12/03/22 12:49 Bone - 5th Toe Anaerobic Culture - Final No anaerobic bacteria isolated. 12/03/22 12:42 Tissue - Right Foot Gram Stain - Final 12/03/22 12:42 Tissue - Right Foot Wound Culture - Final Kocuria kristinae Streptococcus thoraltensis Staphylococcus lugdunensis 12/03/22 12:42 Tissue - Right Foot Anaerobic Culture - Final No anaerobic bacteria isolated. 12/01/22 19:20 Blood Culture (Wb) - Right Hand Blood Culture - Final No growth in 5 days. 12/01/22 19:20 Blood Culture (Wb) - Right Hand Blood Culture - Final No growth in 5 days. 12/03/22 12:55 Tissue Ulcer - 5th Toe Gram Stain - Final 12/03/22 12:55 Tissue Ulcer - 5th Toe Wound Culture - Final Staphylococcus warneri Corynebacterium striatum 12/03/22 12:55 Tissue Ulcer - 5th Toe Anaerobic Culture - Final No anaerobic bacteria isolated. 12/03/22 12:53 Tissue Ulcer - 5th Toe Gram Stain - Final 12/03/22 12:53 Tissue Ulcer - 5th Toe Wound Culture - Final Strep anginosus 12/03/22 12:53 Tissue Ulcer - 5th Toe Anaerobic Culture - Final No anaerobic bacteria isolated. Weight used for dosin.8 kg Estimated Creatinine Clearance: 27.1 Goal Trough: 15-20 mcg/mL Pharmacy Plan for Drug Dosing: Vancomycin had been held due to a high level. The random level drawn 47.75hrs post-dose was now within target, at 17.1. Per aminoglycoside dosing calculator, a new dose of 500mg q24h will give an estimated trough of 13.8. This conservative goal is appropriate due to the level after 2 days of being withheld. Another trough will be taken prior to third dose of new regimen. Pharmacy Service will continue to monitor and adjust dosing as required. Follow-Up Labs: Trough Vancomycin Labs to be done on [date and time ordered]: 12/09/22 @9050
--- NOTE | 2022-12-07 22:15 | NURSING ---
per Jim in pharmacy, okay to hold 2300 vanc until after zosyn is done around 0200 12/08. pt has single lumen picc. Jim will retime dosing from there
[2022-12-07 22:20] LABS: Bedside Glucose 137 mg/dL (74-106)
[2022-12-08] MEDS: Vancomycin IV 500 MG/100 ML BAG 100 MG IV (02:20)
[2022-12-08 04:45] VITALS: BP 122/67; PULSE 67; RESP 18; TEMP 36.5; O2SAT 97
[2022-12-08 06:45] LABS: Bedside Glucose 82 mg/dL (74-106)
[2022-12-08] MEDS: Ascorbic Acid 500 MG Tablet 1000 MG PO ×2 (08:34→18:26)
[2022-12-08] MEDS: Aspirin E.C. 81 MG Tablet PO (08:34)
[2022-12-08] MEDS: Multivitamin (Healthy Eyes) Capsule 1 CAP PO (08:34)
[2022-12-08] MEDS: Juven (unflavored) Packet 1 PACKET PO ×2 (08:34→18:26)
[2022-12-08] MEDS: Pantoprazole Sodium 20 MG Tablet PO (08:34)
[2022-12-08] MEDS: Losartan Potassium 50 MG Tablet PO (08:34)
[2022-12-08] MEDS: Cholecalciferol (VIT D3) 25 MCG TABLET (1,000 UNITS) 50 MCG PO (08:34)
[2022-12-08 08:51] VITALS: BP 133/63; PULSE 70; RESP 18; TEMP 36.8; O2SAT 99
[2022-12-08 09:00] LABS: Bedside Glucose 85 mg/dL (74-106)
--- NOTE | 2022-12-08 09:08 | WOUNDNOTE ---
wound photo: right foot
--- NOTE | 2022-12-08 09:09 | WOUNDNOTE ---
wound photo: right foot
--- NOTE | 2022-12-08 10:47 | CASEMGMT ---
Addendum entered by Vanessa Hays 12/08/22 15:54: [facility] responded via [facility] pt is able to be accepted. KRIS asked for pt precert to be started nick as pt is medically ready for discharge. SW updated pt of acceptance. Explained insurance auth process and waiting times. Pt voiced understanding. Addendum entered by Vanessa Hays 12/08/22 15:04: SW on the phone to [facility] for 32 minutes in attempt to speak with Blade in admissions directly to settle determination on acceptance. SW unable to wait longer d/t other responsibilities. [facility] Addendum entered by Vanessa Hays 12/08/22 14:21: SW received message from [employer], requesting information regarding pt treatment for skin cancer. [facility] concerned if pt getting treatment for this they would be responsibile for transportation to appointments and possible cost to cover treatment. SW spoke to pt. Pt informed has not had treatment for this in over 3 years and has no plan to have any cancer treatments in the future. SW sent update to [facility] with this information. Will continue to wait for determination. Addendum entered by Vanessa Hays 12/08/22 13:19: [facility] verifying benefits for skilled with pt's [employer] insurance. SW explained if pt can be accepted that precert can be started nick as pt is medically ready. Will wait for [facility] to formally accept. Original Note: Social Work SW received message from [employer] asking if pt was still looking for placement. SW responded that pt was still looking for placement. Will wait for [facility] to make determination on acceptance. BING Russ
[2022-12-08] MEDS: Insulin Lispro 100 UNIT/ML INSULN.PEN SC ×3 (11:33→22:03)
[2022-12-08 11:55] LABS: Bedside Glucose 209 mg/dL (74-106)
--- NOTE | 2022-12-08 12:55 | PCM.PN.HOSP ---
Reason for Visit Reason for Visit: Diagnoses Type 2 diabetes mellitus with diabetic polyneuropathy (12/01/22) Type 2 diabetes mellitus with diabetic peripheral angiopathy with gangrene (12/01/22) Type 2 diabetes mellitus with other skin complications (12/01/22) Local infection of the skin and subcutaneous tissue, unspecified (12/01/22) Non-pressure chronic ulcer of other part of right foot with fat layer exposed (12/01/22) Other acute osteomyelitis, right ankle and foot (12/01/22) Osteomyelitis, unspecified (12/01/22) Subjective Subjective Seen and examined today, she still has a wound VAC on her foot, I talked briefly with infectious diseases about her antibiotic coverage, they felt that the patient should be maintained on Zosyn alone and stop the vancomycin. Stop date for the Zosyn would be 01/14/2023. We have not heard word about the patient going to a skilled care facility yet, we are awaiting insurance approval. Objective Data Objective Data Vital Signs: Vital Signs Temp Pulse Resp BP Pulse Ox O2 Del Method O2 Flow Rate 98.2 F 70 18 133/63 H 99 Room Air 92 12/08/22 08:51 12/08/22 08:51 12/08/22 08:51 12/08/22 08:51 12/08/22 08:51 12/08/22 08:51 12/02/22 07:16 Oxygen Flow Rate (L/min) 92 Oxygen Delivery Method Room Air Weight: 83.8 kg Body Mass Index (BMI) 33.7 Intake & Output: Intake and Output for Last 24 Hours 12/06/22 12/07/22 12/08/22 23:59 23:59 23:59 Intake Total 313.42 / 313.42 149 / 149 150 / 150 Output Total 900 / 900 Balance 313.42 / 313.42 -751 / -751 150 / 150 Lab / Micro Data Result Diagrams: 12/04/22 04:20 12/04/22 04:20 Labs: Laboratory Results - last 24 hr 12/07/22 16:10: POC Glucose 167 H 12/07/22 20:30: Random Vancomycin 17.1 H 12/07/22 21:50: POC Glucose 137 H 12/08/22 05:23: POC Glucose 82 12/08/22 08:32: POC Glucose 85 12/08/22 11:32: POC Glucose 209 H Micro: Microbiology 12/03/22 12:49 Bone - 5th Toe Gram Stain - Final 12/03/22 12:49 Bone - 5th Toe Wound Culture - Final Corynebacterium striatum Streptococcus thoraltensis 12/03/22 12:49 Bone - 5th Toe Anaerobic Culture - Final No anaerobic bacteria isolated. 12/03/22 12:42 Tissue - Right Foot Gram Stain - Final 12/03/22 12:42 Tissue - Right Foot Wound Culture - Final Kocuria kristinae Streptococcus thoraltensis Staphylococcus lugdunensis 12/03/22 12:42 Tissue - Right Foot Anaerobic Culture - Final No anaerobic bacteria isolated. 12/01/22 19:20 Blood Culture (Wb) - Right Hand Blood Culture - Final No growth in 5 days. 12/01/22 19:20 Blood Culture (Wb) - Right Hand Blood Culture - Final No growth in 5 days. 12/03/22 12:55 Tissue Ulcer - 5th Toe Gram Stain - Final 12/03/22 12:55 Tissue Ulcer - 5th Toe Wound Culture - Final Staphylococcus warneri Corynebacterium striatum 12/03/22 12:55 Tissue Ulcer - 5th Toe Anaerobic Culture - Final No anaerobic bacteria isolated. 12/03/22 12:53 Tissue Ulcer - 5th Toe Gram Stain - Final 12/03/22 12:53 Tissue Ulcer - 5th Toe Wound Culture - Final Strep anginosus 12/03/22 12:53 Tissue Ulcer - 5th Toe Anaerobic Culture - Final No anaerobic bacteria isolated. Physical Exam Narrative alert, oriented x3, no apparent distress, average body habitus and healthy appearing General Appearance: cooperative, well kempt and well developed Orientation / Consciousness: awake, oriented to person, oriented to place and oriented to time HEENT normocephalic, head/scalp atraumatic and moist oral mucous membranes Eyes PERRL, EOMs intact bilaterally and conjunctivae normal Neck supple, no JVD, thyroid normal and no carotid bruits General: trachea midline Resp normal respiratory effort, no retractions, no use of accessory muscles and clear to auscultation bilaterally Auscultation: Negative for rales, rhonchi or wheezes Cardio regular rate, regular rhythm, S1 normal heart sound, S2 normal heart sound, no murmurs, no rub and no gallops GI normal to inspection, nondistended, normoactive bowel sounds, soft to palpation, non-tender and non-distended Extremity Extremity Narrative: Right lower leg is wrapped with surgical dressing, this was not removed for inspection of the area Skin no rashes or lesions noted General Skin Exam: no breakdown Neuro oriented x3, CN's II-XII intact bilaterally, no focal motor deficits and no sensory deficits noted Sensorium / Orientation: awake and alert Speech: speech normal Psych affect normal Assessment & Plan Assessment/Plan (1) Osteomyelitis of foot, right, acute: (2) Non-pressure chronic ulcer of other part of right foot with fat layer exposed: (3) Diabetic infection of right foot: PLAN: Plan 1. Neuropathic infection of the right foot with osteomyelitis-preliminary wound culture is growing out Staphylococcus warneri and corynebacterium striatum, another culture is growing out Strep anginosus, again I talked with infectious diseases today and they felt that the patient could be treated with Zosyn alone, her vancomycin was discontinued. #2 type 2 diabetes-patient's blood sugars will be monitored, sliding scale insulin will be administered #3 essential hypertension-patient will remain on her present medications #4 hyperlipidemia-patient is on Zetia #5 neuropathy secondary to type 2 diabetes-patient will remain on gabapentin Total clinical time spent by myself addressing the patient's medical issues, reviewing all of her data, and collaborating with the patient's care team: 35 minutes Charges/Coding Visit Charges Inpatient E&M: 40268 Subs Hosp L2
[2022-12-08 14:40] VITALS: BP 144/80; PULSE 73; RESP 18; TEMP 36.4; O2SAT 99
--- NOTE | 2022-12-08 16:27 | PCM.PROGNOTE ---
Objective Data Objective Data Vital Signs: Vital Signs Temp Pulse Resp BP Pulse Ox O2 Del Method O2 Flow Rate 97.6 F L 73 18 144/80 H 99 Room Air 92 12/08/22 14:40 12/08/22 14:40 12/08/22 14:40 12/08/22 14:40 12/08/22 14:40 12/08/22 14:40 12/02/22 07:16 Oxygen Flow Rate (L/min) 92 Oxygen Delivery Method Room Air Weight: 83.8 kg Body Mass Index (BMI) 33.7 Intake & Output: Intake and Output for Last 24 Hours 12/06/22 12/07/22 12/08/22 23:59 23:59 23:59 Intake Total 313.42 / 313.42 149 / 149 200 / 200 Output Total 900 / 900 Balance 313.42 / 313.42 -751 / -751 200 / 200 Lab / Micro Data Result Diagrams: 12/04/22 04:20 12/04/22 04:20 Labs: Laboratory Results - last 24 hr 12/07/22 16:10: POC Glucose 167 H 12/07/22 20:30: Random Vancomycin 17.1 H 12/07/22 21:50: POC Glucose 137 H 12/08/22 05:23: POC Glucose 82 12/08/22 08:32: POC Glucose 85 12/08/22 11:32: POC Glucose 209 H Micro: Microbiology 12/03/22 12:49 Bone - 5th Toe Gram Stain - Final 12/03/22 12:49 Bone - 5th Toe Wound Culture - Final Corynebacterium striatum Streptococcus thoraltensis 12/03/22 12:49 Bone - 5th Toe Anaerobic Culture - Final No anaerobic bacteria isolated. 12/03/22 12:42 Tissue - Right Foot Gram Stain - Final 12/03/22 12:42 Tissue - Right Foot Wound Culture - Final Kocuria kristinae Streptococcus thoraltensis Staphylococcus lugdunensis 12/03/22 12:42 Tissue - Right Foot Anaerobic Culture - Final No anaerobic bacteria isolated. 12/01/22 19:20 Blood Culture (Wb) - Right Hand Blood Culture - Final No growth in 5 days. 12/01/22 19:20 Blood Culture (Wb) - Right Hand Blood Culture - Final No growth in 5 days. 12/03/22 12:55 Tissue Ulcer - 5th Toe Gram Stain - Final 12/03/22 12:55 Tissue Ulcer - 5th Toe Wound Culture - Final Staphylococcus warneri Corynebacterium striatum 12/03/22 12:55 Tissue Ulcer - 5th Toe Anaerobic Culture - Final No anaerobic bacteria isolated. 12/03/22 12:53 Tissue Ulcer - 5th Toe Gram Stain - Final 12/03/22 12:53 Tissue Ulcer - 5th Toe Wound Culture - Final Strep anginosus 12/03/22 12:53 Tissue Ulcer - 5th Toe Anaerobic Culture - Final No anaerobic bacteria isolated. Physical Exam Narrative Right foot wounds are granular and viable with intact margins, no evidence of cellulitis, there is periwound maceration, otherwise no acute changes andf foot stable. Const alert and oriented x3 Assessment & Plan Assessment/Plan (1) Osteomyelitis of foot, right, acute: PLAN: Right foot wounds - wound vac was discontinued for today due to maceration - will re-evaluate tomorrow and reapply pending resolution of maceration. Cultures + for staphylococcus warnari and corynebacterium striatum and strep anginosus. Patient receiving IV antibiotic per ID service. Continue nonweightbearing on right foot. Pending SNF placement. Podiatry will continue to follow. (2) Diabetic infection of right foot: (3) Osteomyelitis: (4) Non-pressure chronic ulcer of other part of right foot with fat layer exposed: (5) Type 2 diabetes mellitus with peripheral neuropathy:
[2022-12-08 16:36] LABS: Bedside Glucose 313 mg/dL (74-106)
[2022-12-08] MEDS: Gabapentin 300 MG Capsule PO (18:26)
[2022-12-08] MEDS: Insulin Human 75/25 Kwickpen 25 UNIT SC (18:26)
[2022-12-08 19:56] VITALS: BP 153/73; PULSE 80; RESP 18; TEMP 36.6; O2SAT 99
[2022-12-08] MEDS: amLODIPine 5 MG Tablet PO (22:05)
[2022-12-08] MEDS: Ezetimibe 10 MG Tablet PO (22:05)
[2022-12-08 23:06] LABS: Bedside Glucose 291 mg/dL (74-106)
[2022-12-09 03:43] VITALS: BP 132/72; PULSE 71; RESP 18; TEMP 36.6; O2SAT 99
[2022-12-09] MEDS: Insulin Lispro 100 UNIT/ML INSULN.PEN SC ×3 (06:51→16:30)
--- NOTE | 2022-12-09 07:06 | PN_ITS ---
Subjective Subjective Patient was seen this morning for follow up on right foot. She is resting in bed, pending nursing facility placement. No complaints of f/c/n/v. Objective Data Objective Data Vital Signs: Vital Signs Temp Pulse Resp BP Pulse Ox O2 Del Method O2 Flow Rate 98 F 71 18 132/72 H 99 Room Air 92 12/09/22 03:43 12/09/22 03:43 12/09/22 03:43 12/09/22 03:43 12/09/22 03:43 12/09/22 03:43 12/02/22 07:16 Oxygen Flow Rate (L/min) 92 Oxygen Delivery Method Room Air Weight: 83.8 kg Body Mass Index (BMI) 33.7 Intake & Output: Intake and Output for Last 24 Hours 12/07/22 12/08/22 12/09/22 23:59 23:59 23:59 Intake Total 149 / 149 200 / 200 550 / 550 Output Total 900 / 900 Balance -751 / -751 200 / 200 550 / 550 Lab / Micro Data Result Diagrams: 12/04/22 04:20 12/04/22 04:20 Labs: Laboratory Results - last 24 hr 12/08/22 08:32: POC Glucose 85 12/08/22 11:32: POC Glucose 209 H 12/08/22 15:53: POC Glucose 313 H 12/08/22 22:00: POC Glucose 291 H Micro: Microbiology 12/03/22 12:49 Bone - 5th Toe Gram Stain - Final 12/03/22 12:49 Bone - 5th Toe Wound Culture - Final Corynebacterium striatum Streptococcus thoraltensis 12/03/22 12:49 Bone - 5th Toe Anaerobic Culture - Final No anaerobic bacteria isolated. 12/03/22 12:42 Tissue - Right Foot Gram Stain - Final 12/03/22 12:42 Tissue - Right Foot Wound Culture - Final Kocuria kristinae Streptococcus thoraltensis Staphylococcus lugdunensis 12/03/22 12:42 Tissue - Right Foot Anaerobic Culture - Final No anaerobic bacteria isolated. 12/01/22 19:20 Blood Culture (Wb) - Right Hand Blood Culture - Final No growth in 5 days. 12/01/22 19:20 Blood Culture (Wb) - Right Hand Blood Culture - Final No growth in 5 days. 12/03/22 12:55 Tissue Ulcer - 5th Toe Gram Stain - Final 12/03/22 12:55 Tissue Ulcer - 5th Toe Wound Culture - Final Staphylococcus warneri Corynebacterium striatum 12/03/22 12:55 Tissue Ulcer - 5th Toe Anaerobic Culture - Final No anaerobic bacteria isolated. 12/03/22 12:53 Tissue Ulcer - 5th Toe Gram Stain - Final 12/03/22 12:53 Tissue Ulcer - 5th Toe Wound Culture - Final Strep anginosus 12/03/22 12:53 Tissue Ulcer - 5th Toe Anaerobic Culture - Final No anaerobic bacteria isolated. Physical Exam Narrative Right foot wounds to midfoot are granular and viable with intact margins, no avelino dence of cellulitis, tissues are healthy and viable, no new wounds, there is resolved periwound maceration, otherwise no acute changes and foot stable, no evidence of acute ischemia. Const alert and oriented x3 Assessment & Plan Assessment/Plan (1) Osteomyelitis of foot, right, acute: PLAN: Right foot wounds - wound vac was discontinued yesterday due to maceration, maceration has resolved so ok to resume wound vac today. Cultures + for staphylococcus warnari and corynebacterium striatum and strep anginosus. Patient receiving IV antibiotic per ID service. Continue nonweightbearing on right foot. Keep foot elevated. Pending SNF placement. Podiatry will continue to follow. (2) Diabetic infection of right foot: (3) Osteomyelitis: (4) Non-pressure chronic ulcer of other part of right foot with fat layer exposed: (5) Type 2 diabetes mellitus with peripheral neuropathy:
[2022-12-09 07:25] LABS: Bedside Glucose 192 mg/dL (74-106)
[2022-12-09 08:52] VITALS: BP 145/71; PULSE 71; RESP 18; TEMP 36.8; O2SAT 97
[2022-12-09] MEDS: Ascorbic Acid 500 MG Tablet 1000 MG PO ×2 (08:55→16:32)
[2022-12-09] MEDS: Pantoprazole Sodium 20 MG Tablet PO (08:55)
[2022-12-09] MEDS: Aspirin E.C. 81 MG Tablet PO (08:55)
[2022-12-09] MEDS: Cholecalciferol (VIT D3) 25 MCG TABLET (1,000 UNITS) 50 MCG PO (08:55)
[2022-12-09] MEDS: Multivitamin (Healthy Eyes) Capsule 1 CAP PO (08:55)
[2022-12-09] MEDS: Insulin Human 75/25 Kwickpen 25 UNIT SC ×2 (08:56→16:31)
[2022-12-09] MEDS: Losartan Potassium 50 MG Tablet PO (08:56)
[2022-12-09] MEDS: Juven (unflavored) Packet 1 PACKET PO ×2 (08:56→16:30)
[2022-12-09 09:37] LABS: Absolute Lymphocyte Count 2.39 X10^3/uL (0.83-4.51); Absolute Neutrophil Count 7.3 X10^3/uL (2.0-7.7); Basophil# 0.07 X10^3/uL; Basophil% 0.6 % (0-1); Eosinophil# 0.28 X10^3/uL; Eosinophils% 2.6 % (0-5); Hematocrit 32.7 % (37-47); Hemoglobin 9.8 g/dL (12.0-15.0); Lymphocyte # 2.39 X10^3/ul (0.83-4.51); Lymphocyte % 21.8 % (19-41); Mean Corpuscular Hgb 27.1 pg (27.0-32.0); Mean Corpuscular Volume 90.3 fL (81-99); Mean Platelet Vol. 9.4 fl (6.2-12.0); Monocyte# 0.78 X10^3/uL; Monocyte% 7.1 % (0-10); NRBC Flagged by Analyzer 0 % (0-5); Neutrophil % 66.6 % (47-70); Platelet Count 509 K/mm3 (150-450); RBC Distribution Width CV 13.7 % (11.6-14.6); RBC Distribution Width SD 45.3 fl (35.1-43.9); Red Blood Count 3.62 M/mm3 (4.2-5.4)
[2022-12-09] MEDS: Acetaminophen 325 MG Tablet 650 MG PO (10:31)
[2022-12-09 10:40] LABS: Anion Gap 5 (5-15); BUN 74 mg/dL (7-18); BUN/Creat Ratio 43.8 RATIO (10-20); Calcium,Total 9.3 mg/dL (8.5-10.1); Chloride 111 mmol/L (98-107); Creatinine, Serum 1.69 mg/dL (0.55-1.02); EST Glomerular Filtration Rate 32 mL/min (>60); Est Glom Filt Rate - Afr Amer 39 mL/min (>60); Estimated Creatinine Clearance 25.55 ml/min; Glucose 167 mg/dL (74-106); Potassium 4.9 mmol/L (3.5-5.1); Sodium Level 139 mmol/L (136-145)
--- NOTE | 2022-12-09 11:02 | PN.HOSP_ITS ---
Subjective Subjective Doing well, no issues overnight Objective Data Objective Data Vital Signs: Vital Signs Temp Pulse Resp BP Pulse Ox O2 Del Method O2 Flow Rate 98.2 F 71 18 145/71 H 97 Room Air 92 12/09/22 08:52 12/09/22 08:52 12/09/22 08:52 12/09/22 08:52 12/09/22 08:52 12/09/22 08:52 12/02/22 07:16 Oxygen Flow Rate (L/min) 92 Oxygen Delivery Method Room Air Weight: 184 lb 11.958 oz Body Mass Index (BMI) 33.7 Intake & Output: Intake and Output for Last 24 Hours 12/08/22 12/09/22 12/10/22 03:59 03:59 03:59 Intake Total 249 / 249 400 / 400 200 / 200 Output Total 900 / 900 Balance -651 / -651 400 / 400 200 / 200 Lab / Micro Data Result Diagrams: 12/09/22 09:20 12/09/22 09:20 Labs: Laboratory Results - last 24 hr 12/08/22 11:32: POC Glucose 209 H 12/08/22 15:53: POC Glucose 313 H 12/08/22 22:00: POC Glucose 291 H 12/09/22 06:49: POC Glucose 192 H 12/09/22 09:20: WBC 11.0, RBC 3.62 L, Hgb 9.8 L, Hct 32.7 L, MCV 90.3, MCH 27.1, MCHC 30.0 L, RDW Std Deviation 45.3 H, RDW Coeff of Steven 13.7, Plt Count 509 H, MPV 9.4, Immature Gran % (Auto) 1.300 H, Neut % (Auto) 66.6, Lymph % (Auto) 21.8, [place] % (Auto) 7.1, Eos % (Auto) 2.6, Baso % (Auto) 0.6, Absolute Neuts (auto) 7.3, Absolute Lymphs (auto) 2.39, Nucleated RBC % 0 12/09/22 09:20: Sodium 139, Potassium 4.9, Chloride 111 H, Carbon Dioxide 23.0, Anion Gap 5, BUN 74 H, Creatinine 1.69 H, Estim Creat Clear Calc 25.55, Est GFR (MDRD) Af Amer 39 L, Est GFR (MDRD) Non-Af 32 L, BUN/Creatinine Ratio 43.8 H, Glucose 167 H, Calcium 9.3 Micro: Microbiology 12/03/22 12:49 Bone - 5th Toe Gram Stain - Final 12/03/22 12:49 Bone - 5th Toe Wound Culture - Final Corynebacterium striatum Streptococcus thoraltensis 12/03/22 12:49 Bone - 5th Toe Anaerobic Culture - Final No anaerobic bacteria isolated. 12/03/22 12:42 Tissue - Right Foot Gram Stain - Final 12/03/22 12:42 Tissue - Right Foot Wound Culture - Final Kocuria kristinae Streptococcus thoraltensis Staphylococcus lugdunensis 12/03/22 12:42 Tissue - Right Foot Anaerobic Culture - Final No anaerobic bacteria isolated. 12/01/22 19:20 Blood Culture (Wb) - Right Hand Blood Culture - Final No growth in 5 days. 12/01/22 19:20 Blood Culture (Wb) - Right Hand Blood Culture - Final No growth in 5 days. 12/03/22 12:55 Tissue Ulcer - 5th Toe Gram Stain - Final 12/03/22 12:55 Tissue Ulcer - 5th Toe Wound Culture - Final Staphylococcus warneri Corynebacterium striatum 12/03/22 12:55 Tissue Ulcer - 5th Toe Anaerobic Culture - Final No anaerobic bacteria isolated. 12/03/22 12:53 Tissue Ulcer - 5th Toe Gram Stain - Final 12/03/22 12:53 Tissue Ulcer - 5th Toe Wound Culture - Final Strep anginosus 12/03/22 12:53 Tissue Ulcer - 5th Toe Anaerobic Culture - Final No anaerobic bacteria isolated. Physical Exam Narrative General: Alert, Oriented x3, Cooperative, No apparent distress HEENT: Atraumatic, PERRLA, EOMI, Normocephalic Oral: Moist Mucosa Neck: Supple, No JVD Lungs: Diminished, Normal air movement, No rhonchi, No wheeze, No rales Cardiovascular: Regular rate, Regular Rhythm, Normal S1, Normal S2, No murmurs Abdomen: Soft, Non Tender, Non-Distended, No Hepato-splenomegaly Extremities: No edema, Capillary Refill Less than 3 Seconds Skin: Right lower extremity wrapped Musculoskeletal: No Tenderness to Palpation of Joints or Extremities Neurological: Cranial nerves II-XII grossly intact, Motor Exam 5/5 strength throughout, Sensory exam intact to light touch and pain with chronic diminished sensation in her lower extremities Psych/Mental Status: Normal Affect, Appropriate Assessment & Plan Assessment/Plan (1) Osteomyelitis of foot, right, acute: (2) Non-pressure chronic ulcer of other part of right foot with fat layer exposed: (3) Diabetic infection of right foot: PLAN: Plan 1. Diabetic right foot infection with osteomyelitis due to Staphylococcus and corynebacterium/type 2 diabetes with neuropathy ? ID is on board with plan for long-term Zosyn, PICC is in her left upper extremity ? Appreciate podiatry and ID's assistance ? We will continue to monitor her blood sugars and make adjustments as necessary ? Continue with gabapentin ? Pending transfer to SNF 2. HTN/HLD ? Blood pressures are stable, can continue with her home blood pressure medic ations ? Continue with Zetia 3. GERD ? Stable ? Continue with PPI DVT: Heparin Charges/Coding Visit Charges Inpatient E&M: 37894 Subs Hosp L2
--- NOTE | 2022-12-09 11:06 | CASEMGMT ---
Addendum entered by Vanessa Hyas 12/09/22 14:03: Claudia Garcia requesting the PASRR before submitting for insurance auth. KRIS explained cannot complete until a hospital discharge is complete and this cannot be done until precert is obtained. KRIS called slot supervisor, Josiane, for guidance. Josiane to call Claudia Garcia. Original Note: Social Work SW received message from Claudia [facility] regarding pt needs for special respiratory equipment. KRIS reviewed pt chart, noted pt is on room air and has been for entire stay at [facility]. KRIS also checked with pt bedside nurse and charge nurse who reported pt does not have a respiratory history and is not using any special equipment while here at [facility]. KRIS responded to Claudia [facility]'s inquiry and also sent updated MD notes and therapy notes in the event insurance requests them for precert. PLAN: Claudia Garcia, pending precert BING Russ
[2022-12-09 11:41] LABS: Bedside Glucose 174 mg/dL (74-106)
[2022-12-09 14:48] VITALS: BP 145/68; PULSE 74; RESP 18; TEMP 36.5; O2SAT 98
--- NOTE | 2022-12-09 14:56 | CASEMGMT ---
Social Work Discussion with Vanessa GOLDMAN regarding [facility] asking for a HENS form (either 0700 convalescent or PASRR) to be completed prior to precert being started, and reporting this is a mandate of CP[employer], third libertarian submitting or insurance authorization. Called Blade, on hold for over 30 minutes. Called back again and let salesperson fashion accessories know about long wait times. Blade picked up phone promptly. Per Blade, [employer] is stating this is an insurance requirement to have the PASRR before can start precert. Educated Blade that unaware of other facilities, to this point, stating this requirement. Blade walked this keno writer through the process on [facility]'s end for precert and states the keycase assembler stating need to have PASRR in advance of precert being started. Called [facility] and spoke with keycase assembler supervisor sawing and assembly, Nica Harrison ([phone]). Per Nica, it is a Medicaid requirement to have the PASRR within 30 days of admission, and this is what is told to the SNF's, not that the PASRR must be done before precert is started. Explained this is a patient with a Medicare Advantage, and Nica stated Medicare would not factor into this issue, as far as [employer] asking for a copy of the PASRR. Called Blade back on work cell phone ([phone]) and updated to conversation with Nica. Provided Blade Yousif's name to reference when working with [employer]. Let Blade know that the PASRR is not needed to start precert, per [employer] supervisor sawing and assembly. Blade reports will follow up with CPAN. Asked Blade to keep [facility] updated. Plan: [facility] once precert is obtained. -MEET Hein MSW
[2022-12-09] MEDS: Gabapentin 300 MG Capsule PO (16:34)
[2022-12-09 16:55] LABS: Bedside Glucose 170 mg/dL (74-106)
[2022-12-09 21:32] VITALS: BP 139/63; PULSE 73; RESP 18; TEMP 37; O2SAT 96
[2022-12-09] MEDS: amLODIPine 5 MG Tablet PO (21:37)
[2022-12-09] MEDS: Ezetimibe 10 MG Tablet PO (21:37)
[2022-12-09 22:05] LABS: Bedside Glucose 115 mg/dL (74-106)
[2022-12-10 03:16] VITALS: BP 133/62; PULSE 66; RESP 18; TEMP 36.6; O2SAT 97
[2022-12-10 06:50] LABS: Bedside Glucose 108 mg/dL (74-106)
[2022-12-10] MEDS: Insulin Human 75/25 Kwickpen 25 UNIT SC ×2 (08:47→17:46)
[2022-12-10] MEDS: Pantoprazole Sodium 20 MG Tablet PO (08:47)
[2022-12-10] MEDS: Ascorbic Acid 500 MG Tablet 1000 MG PO ×2 (08:47→17:45)
[2022-12-10] MEDS: Aspirin E.C. 81 MG Tablet PO (08:48)
[2022-12-10] MEDS: Multivitamin (Healthy Eyes) Capsule 1 CAP PO (08:48)
[2022-12-10] MEDS: Cholecalciferol (VIT D3) 25 MCG TABLET (1,000 UNITS) 50 MCG PO (08:48)
[2022-12-10] MEDS: Juven (unflavored) Packet 1 PACKET PO ×2 (08:48→17:46)
[2022-12-10] MEDS: Losartan Potassium 50 MG Tablet PO (08:48)
--- NOTE | 2022-12-10 09:03 | CASEMGMT ---
Addendum entered by Vanessa Hays 12/10/22 09:50: KRIS received message back from Blade at [facility], [place]. Blade shared precert has been started but [facility] requesting updated [facility] notes. KRIS sent updated progress notes for PT/OT at this time and informed Blade they had been sent. KRIS updated pt that precert was still pending and that pt will be information as soon as it is received about approval. Pt voiced understanding. PLAN: [facility], pending precert Original Note: Social Work SW sent message to Blade at [facility], [place] to follow up on discussion held with [facility] Lead SW, Josiane, yesterday, that related to pt's precert and it being started. KRIS asked Blade for an update on if precert had been initiated or if an update about the process could be given to [facility] and the patient so all parties were informed of what was happening in the process. PLAN: [facility], pending precert BING Russ
[2022-12-10 09:15] VITALS: BP 144/60; PULSE 79; RESP 18; TEMP 36.6; O2SAT 97
--- NOTE | 2022-12-10 09:31 | PN.HOSP_ITS ---
Subjective Subjective Doing well, no issues overnight Objective Data Objective Data Vital Signs: Vital Signs Temp Pulse Resp BP Pulse Ox O2 Del Method O2 Flow Rate 98 F 79 18 144/60 H 97 Room Air 92 12/10/22 09:15 12/10/22 09:15 12/10/22 09:15 12/10/22 09:15 12/10/22 09:15 12/10/22 09:15 12/02/22 07:16 Oxygen Flow Rate (L/min) 92 Oxygen Delivery Method Room Air Weight: 184 lb 11.958 oz Body Mass Index (BMI) 33.7 Intake & Output: Intake and Output for Last 24 Hours 12/09/22 12/10/22 12/11/22 03:59 03:59 03:59 Intake Total 400 / 400 465.25 / 465.25 Balance 400 / 400 465.25 / 465.25 Lab / Micro Data Result Diagrams: 12/09/22 09:20 12/09/22 09:20 Labs: Laboratory Results - last 24 hr 12/09/22 09:20: WBC 11.0, RBC 3.62 L, Hgb 9.8 L, Hct 32.7 L, MCV 90.3, MCH 27.1, MCHC 30.0 L, RDW Std Deviation 45.3 H, RDW Coeff of Steven 13.7, Plt Count 509 H, MPV 9.4, Immature Gran % (Auto) 1.300 H, Neut % (Auto) 66.6, Lymph % (Auto) 21.8, [place] % (Auto) 7.1, Eos % (Auto) 2.6, Baso % (Auto) 0.6, Absolute Neuts (auto) 7.3, Absolute Lymphs (auto) 2.39, Nucleated RBC % 0 12/09/22 09:20: Sodium 139, Potassium 4.9, Chloride 111 H, Carbon Dioxide 23.0, Anion Gap 5, BUN 74 H, Creatinine 1.69 H, Estim Creat Clear Calc 25.55, Est GFR (MDRD) Af Amer 39 L, Est GFR (MDRD) Non-Af 32 L, BUN/Creatinine Ratio 43.8 H, Glucose 167 H, Calcium 9.3 12/09/22 11:15: POC Glucose 174 H 12/09/22 16:26: POC Glucose 170 H 12/09/22 21:36: POC Glucose 115 H 12/10/22 06:30: POC Glucose 108 H Micro: Microbiology 12/03/22 12:49 Bone - 5th Toe Gram Stain - Final 12/03/22 12:49 Bone - 5th Toe Wound Culture - Final Corynebacterium striatum Streptococcus thoraltensis 12/03/22 12:49 Bone - 5th Toe Anaerobic Culture - Final No anaerobic bacteria isolated. 12/03/22 12:42 Tissue - Right Foot Gram Stain - Final 12/03/22 12:42 Tissue - Right Foot Wound Culture - Final Kocuria kristinae Streptococcus thoraltensis Staphylococcus lugdunensis 12/03/22 12:42 Tissue - Right Foot Anaerobic Culture - Final No anaerobic bacteria isolated. 12/01/22 19:20 Blood Culture (Wb) - Right Hand Blood Culture - Final No growth in 5 days. 12/01/22 19:20 Blood Culture (Wb) - Right Hand Blood Culture - Final No growth in 5 days. 12/03/22 12:55 Tissue Ulcer - 5th Toe Gram Stain - Final 12/03/22 12:55 Tissue Ulcer - 5th Toe Wound Culture - Final Staphylococcus warneri Corynebacterium striatum 12/03/22 12:55 Tissue Ulcer - 5th Toe Anaerobic Culture - Final No anaerobic bacteria isolated. 12/03/22 12:53 Tissue Ulcer - 5th Toe Gram Stain - Final 12/03/22 12:53 Tissue Ulcer - 5th Toe Wound Culture - Final Strep anginosus 12/03/22 12:53 Tissue Ulcer - 5th Toe Anaerobic Culture - Final No anaerobic bacteria isolated. Physical Exam Narrative General: Alert, Oriented x3, Cooperative, No apparent distress HEENT: Atraumatic, PERRLA, EOMI, Normocephalic Oral: Moist Mucosa Neck: Supple, No JVD Lungs: Diminished, Normal air movement, No rhonchi, No wheeze, No rales Cardiovascular: Regular rate, Regular Rhythm, Normal S1, Normal S2, No murmurs Abdomen: Soft, Non Tender, Non-Distended, No Hepato-splenomegaly Extremities: No edema, Capillary Refill Less than 3 Seconds Skin: Right lower extremity wrapped Musculoskeletal: No Tenderness to Palpation of Joints or Extremities Neurological: Cranial nerves II-XII grossly intact, Motor Exam 5/5 strength throughout, Sensory exam intact to light touch and pain with chronic diminished sensation in her lower extremities Psych/Mental Status: Normal Affect, Appropriate Assessment & Plan Assessment/Plan (1) Osteomyelitis of foot, right, acute: (2) Non-pressure chronic ulcer of other part of right foot with fat layer exposed: (3) Diabetic infection of right foot: PLAN: Plan 1. Diabetic right foot infection with osteomyelitis due to Staphylococcus and corynebacterium/type 2 diabetes with neuropathy ? ID is on board with plan for long-term Zosyn, PICC is in her left upper extremity ? Appreciate podiatry and ID's assistance ? We will continue to monitor her blood sugars and make adjustments as necessary ? Continue with gabapentin ? Pending transfer to SNF 2. HTN/HLD ? Blood pressures are stable, can continue with her home blood pressure medications ? Continue with Zetia 3. GERD ? Stable ? Continue with PPI DVT: Heparin Charges/Coding Visit Charges Inpatient E&M: 04639 Subs Hosp L2
[2022-12-10] MEDS: Insulin Lispro 100 UNIT/ML INSULN.PEN SC ×3 (12:24→23:19)
[2022-12-10 12:46] LABS: Bedside Glucose 275 mg/dL (74-106)
[2022-12-10] MEDS: Acetaminophen 325 MG Tablet 650 MG PO (15:05)
[2022-12-10 15:54] VITALS: BP 147/68; PULSE 72; RESP 18; TEMP 36.6; O2SAT 100
[2022-12-10 17:15] LABS: Bedside Glucose 294 mg/dL (74-106)
[2022-12-10] MEDS: Gabapentin 300 MG Capsule PO (17:45)
[2022-12-10] MEDS: amLODIPine 5 MG Tablet PO (23:00)
[2022-12-10] MEDS: Ezetimibe 10 MG Tablet PO (23:01)
[2022-12-10 23:15] VITALS: BP 144/70; PULSE 72; RESP 16; TEMP 36.5; O2SAT 96
[2022-12-10 23:55] LABS: Bedside Glucose 238 mg/dL (74-106)
[2022-12-11 06:26] VITALS: BP 134/71; PULSE 72; RESP 16; TEMP 36.8; O2SAT 96
--- NOTE | 2022-12-11 08:39 | PCM.PN.HOSP ---
Subjective Subjective Doing well, no issues overnight Objective Data Objective Data Vital Signs: Vital Signs Temp Pulse Resp BP Pulse Ox O2 Del Method O2 Flow Rate 98.2 F 72 16 134/71 H 96 Room Air 92 12/11/22 06:26 12/11/22 06:26 12/11/22 06:26 12/11/22 06:26 12/11/22 06:26 12/11/22 06:26 12/02/22 07:16 Oxygen Flow Rate (L/min) 92 Oxygen Delivery Method Room Air Weight: 184 lb 11.958 oz Body Mass Index (BMI) 33.7 Intake & Output: Intake and Output for Last 24 Hours 12/10/22 12/11/22 12/12/22 03:59 03:59 03:59 Intake Total 465.25 / 465.25 1636.5 / 1636.5 47.5 / 47.5 Balance 465.25 / 465.25 1636.5 / 1636.5 47.5 / 47.5 Lab / Micro Data Result Diagrams: 12/09/22 09:20 12/09/22 09:20 Labs: Laboratory Results - last 24 hr 12/10/22 12:23: POC Glucose 275 H 12/10/22 16:54: POC Glucose 294 H 12/10/22 23:17: POC Glucose 238 H Micro: Microbiology 12/03/22 12:49 Bone - 5th Toe Gram Stain - Final 12/03/22 12:49 Bone - 5th Toe Wound Culture - Final Corynebacterium striatum Streptococcus thoraltensis 12/03/22 12:49 Bone - 5th Toe Anaerobic Culture - Final No anaerobic bacteria isolated. 12/03/22 12:42 Tissue - Right Foot Gram Stain - Final 12/03/22 12:42 Tissue - Right Foot Wound Culture - Final Kocuria kristinae Streptococcus thoraltensis Staphylococcus lugdunensis 12/03/22 12:42 Tissue - Right Foot Anaerobic Culture - Final No anaerobic bacteria isolated. 12/01/22 19:20 Blood Culture (Wb) - Right Hand Blood Culture - Final No growth in 5 days. 12/01/22 19:20 Blood Culture (Wb) - Right Hand Blood Culture - Final No growth in 5 days. 12/03/22 12:55 Tissue Ulcer - 5th Toe Gram Stain - Final 12/03/22 12:55 Tissue Ulcer - 5th Toe Wound Culture - Final Staphylococcus warneri Corynebacterium striatum 12/03/22 12:55 Tissue Ulcer - 5th Toe Anaerobic Culture - Final No anaerobic bacteria isolated. 12/03/22 12:53 Tissue Ulcer - 5th Toe Gram Stain - Final 12/03/22 12:53 Tissue Ulcer - 5th Toe Wound Culture - Final Strep anginosus 12/03/22 12:53 Tissue Ulcer - 5th Toe Anaerobic Culture - Final No anaerobic bacteria isolated. Physical Exam Narrative General: Alert, Oriented x3, Cooperative, No apparent distress HEENT: Atraumatic, PERRLA, EOMI, Normocephalic Oral: Moist Mucosa Neck: Supple, No JVD Lungs: Diminished, Normal air movement, No rhonchi, No wheeze, No rales Cardiovascular: Regular rate, Regular Rhythm, Normal S1, Normal S2, No murmurs Abdomen: Soft, Non Tender, Non-Distended, No Hepato-splenomegaly Extremities: No edema, Capillary Refill Less than 3 Seconds Skin: Right lower extremity wrapped Musculoskeletal: No Tenderness to Palpation of Joints or Extremities Neurological: Cranial nerves II-XII grossly intact, Motor Exam 5/5 strength throughout, Sensory exam intact to light touch and pain with chronic diminished sensation in her lower extremities Psych/Mental Status: Normal Affect, Appropriate Assessment & Plan Assessment/Plan (1) Osteomyelitis of foot, right, acute: (2) Non-pressure chronic ulcer of other part of right foot with fat layer exposed: (3) Diabetic infection of right foot: PLAN: Plan 1. Diabetic right foot infection with osteomyelitis due to Staphylococcus and corynebacterium/type 2 diabetes with neuropathy ? ID is on board with plan for long-term Zosyn, PICC is in her left upper extremity ? Appreciate podiatry and ID's assistance ? We will continue to monitor her blood sugars and make adjustments as necessary ? Continue with gabapentin ? Pending transfer to SNF 2. HTN/HLD ? Blood pressures are stable, can continue with her home blood pressure medications ? Continue with Zetia 3. GERD ? Stable ? Continue with PPI DVT: Heparin Charges/Coding Visit Charges Inpatient E&M: 78636 Subs Hosp L2
[2022-12-11] MEDS: Multivitamin (Healthy Eyes) Capsule 1 CAP PO (08:47)
[2022-12-11] MEDS: Aspirin E.C. 81 MG Tablet PO (08:47)
[2022-12-11] MEDS: Cholecalciferol (VIT D3) 25 MCG TABLET (1,000 UNITS) 50 MCG PO (08:48)
[2022-12-11] MEDS: Juven (unflavored) Packet 1 PACKET PO ×2 (08:48→17:33)
[2022-12-11] MEDS: Losartan Potassium 50 MG Tablet PO (08:48)
[2022-12-11] MEDS: Ascorbic Acid 500 MG Tablet 1000 MG PO ×2 (08:48→17:34)
[2022-12-11] MEDS: Pantoprazole Sodium 20 MG Tablet PO (08:49)
[2022-12-11] MEDS: Insulin Human 75/25 Kwickpen 25 UNIT SC ×2 (08:50→17:28)
[2022-12-11] MEDS: Insulin Lispro 100 UNIT/ML INSULN.PEN SC ×3 (09:00→17:29)
[2022-12-11 09:09] VITALS: BP 146/67; PULSE 79; RESP 18; TEMP 36.6; O2SAT 99
--- NOTE | 2022-12-11 09:52 | CASEMGMT ---
Social Work [facility] requesting information on IV ATB. Scripts for IV ATB and wound vac information sent to [facility] via [employer]. BING Reece
[2022-12-11 10:15] LABS: Bedside Glucose 191 mg/dL (74-106)
[2022-12-11 12:11] LABS: Bedside Glucose 251 mg/dL (74-106)
[2022-12-11] MEDS: Heparin Injection (Vial) 5,000 UNIT/ML VIAL 5000 UNIT SC (14:46)
[2022-12-11 15:02] VITALS: BP 147/75; PULSE 75; RESP 18; TEMP 36.4; O2SAT 100
--- NOTE | 2022-12-11 16:03 | TREXTCAR_ITS ---
Diet Diet Order/Speech Therapy: 12/03/22 13:57 Diet: Carbohydrate Controlled Dietary Modifications:: No Added Salt Is pt able to select menu?: Yes Routine Orders/Code Status Routine Lab Work: CBC and BMP Code Status: Full Code Wound(s) Diabetic Foot Ulcer: Wound Type: Surgical Incision right plantar foot: Wound Type: Neuropathic/Diabetic Foot Ulcer Dressing Change: reapplied KCI wound VAC right lateral foot: Wound Type: Neuropathic/Diabetic Foot Ulcer Dressing Change: reapplied KCI wound VAC rt buttock: Wound Type: Pressure Injury Therapies Physical Therapy: Eval and Treat Occupational Therapy: Eval and Treat Problem/Diagnosis (1) Osteomyelitis of foot, right, acute: Status: Acute Code(s): M86.171 - Other acute osteomyelitis, right ankle and foot (2) Non-pressure chronic ulcer of other part of right foot with fat layer exposed: Status: Chronic Code(s): L97.512 - Non-pressure chronic ulcer of other part of right foot with fat layer exposed (3) Diabetic infection of right foot: Status: Acute Code(s): E11.628 - Type 2 diabetes mellitus with other skin complications; L08.9 - Local infection of the skin and subcutaneous tissue, unspecified Plan 1. Diabetic right foot infection with osteomyelitis due to Staphylococcus and corynebacterium/type 2 diabetes with neuropathy ? ID is on board with plan for long-term Zosyn, PICC is in her left upper extremity ? Appreciate podiatry and ID's assistance ? We will continue to monitor her blood sugars and make adjustments as necessary ? Continue with gabapentin ? Pending transfer to SNF 2. HTN/HLD ? Blood pressures are stable, can continue with her home blood pressure medications ? Continue with Zetia 3. GERD ? Stable ? Continue with PPI DVT: Heparin Allergies/Procedures Done in Hospital Allergies lisinopril Allergy (Verified 12/01/22 17:15) Rash Procedures: None Type of Care/Length of Stay Estimated LOS: Convalescent Care Less Than 30 days Type of Care Needed: Skilled Rehab Potential: Good Prognosis: Good Additional Orders/Day of Discharge Day of Discharge: 12/11/22 Dietary and Speech Recommendations Dietitian Recommendations/Changes: Will adjust diet to consistent carbohydrate, no added salt. Will continue Lino BID for wound healing. Discharge Plan Admission Admit Date/Time: 12/01/22 21:58 Attending Provider: Tha Maria Primary Care Provider: Hever Otoole Consulting Providers: Foster Melendez ; Danny Amaro ; Don Keith ; Hever Mcdonald Discharge Orders/Prescriptions Prescriptions: New piperacillin-tazobactam 3.375 gram recon soln 3.375 g IV Q12H 40 Days Qty: 80 0RF Rx Instructions: stop date 01/14/23 dx: foot osteo weekly bmp, cbc, esr, and vanc trough. Fax to [phone] vancomycin in dextrose 5 % 1 gram/200 mL Piggyback 1,000 mg IV Q24H 40 Days Qty: 40 0RF Rx Instructions: stop date 01/14/23 dx: foot osteo weekly bmp, cbc, esr, and vanc trough. Fax to [phone] Continued aspirin [Adult Low Dose Aspirin] 81 mg tablet,delayed release (DR/EC) 81 mg PO DAILY loratadine [Allergy Relief (loratadine)] 10 mg tablet 10 mg PO DAILY ascorbic acid (vitamin C) 1,000 mg capsule 1 g PO BID ICaps AREDS [id number] eagz-to-[id number] capsule 1 cap PO BID Kerendia 10 mg tablet 10 mg PO DAILY losartan 50 mg tablet 50 mg PO DAILY amlodipine 5 mg tablet 5 mg PO QHS omeprazole 20 mg Capsule,Delayed Release(Dr/Ec) 20 mg PO DAILY glucosamine-chondroitin [Osteo Bi-Flex] 250-200 mg Tablet 2 tab PO DAILY gabapentin 300 mg Tablet 300 mg PO DAILY ezetimibe 10 mg tablet 10 mg PO QHS Humalog Mix 50-50 KwikPen 100 unit/mL (50-50) insulin pen 65 unit subcut BID Trulicity 1.5 mg/0.5 mL pen injector 1.5 mg subcut QWEEK Rx Instructions: Due today 12/02 Systane Complete 0.6 % Drops 1 drp EACH EYE TID PRN (Reason: Dry Eyes) cholecalciferol (vitamin D3) 50 mcg (2,000 unit) capsule 50 mcg PO DAILY Referrals / Follow Up: Hever Otoole, [Primary Care Provider] - Disposition Disposition (needs filled in before D/C Order can be placed): Shelter Facility
--- NOTE | 2022-12-11 16:11 | CASEMGMT ---
Social Work Phone call placed to Lakisha at [facility] to check on precert. Lakisha states precert has been obtained and pt can admit today. Physician updated and will discharge pt today. SW met with pt and informed. Pt agreeable and states her sister will transport her to [facility]. Phone call to Blade at [facility] and updated that pt will discharge today. 7000 completed in HENS. Green sheet on chart for nursing to complete discharge when orders are complete. Disposition: [facility], skilled level of care Under Convalescent stay BING Reece
--- NOTE | 2022-12-11 16:12 | PCM.DC.SUM ---
Providers Date of Admission: 12/01/22 Primary Care Physician: Dr. 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 Comment: Reason for Consult:: right foot Reason For Visit: DIABETIC FOOT INFECTION Diagnosis Discharge Diagnosis (1) Osteomyelitis of foot, right, acute: Status: Acute Code(s): M86.171 - Other acute osteomyelitis, right ankle and foot (2) Non-pressure chronic ulcer of other part of right foot with fat layer exposed: Status: Chronic Code(s): L97.512 - Non-pressure chronic ulcer of other part of right foot with fat layer exposed (3) Diabetic infection of right foot: Status: Acute Code(s): E11.628 - Type 2 diabetes mellitus with other skin complications; L08.9 - Local infection of the skin and subcutaneous tissue, unspecified Medications at Discharge Home Medications aspirin 81 mg tablet,delayed release (Adult Low Dose Aspirin) 81 mg PO DAILY Blood clot reduction 07/16/20 ascorbic acid (vitamin C) 1,000 mg capsule 1 g PO BID Vitamin C 04/14/22 loratadine 10 mg tablet (Allergy Relief (loratadine)) 10 mg PO DAILY Blood sugar 04/14/22 vitamins A,C,F-zilh-ecnemx 4,296 mcg-226 mg-90 mg capsule (ICaps AREDS) 1 cap PO BID Multivitamin 04/14/22 cholecalciferol (vitamin D3) 50 mcg (2,000 unit) capsule 50 mcg PO DAILY Check with primary doctor 10/09/22 gabapentin 300 mg tablet 300 mg PO DAILY neuorpathy 10/13/22 glucosamine-chondroitin 250 mg-200 mg tablet (Osteo Bi-Flex) 2 tab PO DAILY SUPPLEMENT 10/13/22 omeprazole 20 mg capsule,delayed release 20 mg PO DAILY GERD 10/13/22 amlodipine 5 mg tablet 5 mg PO QHS High BP 11/21/22 finerenone 10 mg tablet (Kerendia) 10 mg PO DAILY Kidneys 11/21/22 losartan 50 mg tablet 50 mg PO DAILY Blood pressure 11/21/22 dulaglutide 1.5 mg/0.5 mL subcutaneous pen injector (Trulicity) 1.5 mg subcut QWEEK Glucose 12/02/22 ezetimibe 10 mg tablet 10 mg PO QHS High cholesterol 12/02/22 insulin lispro protamine-lispro 100 unit/mL (50-50) subcutaneous pen (Humalog Mix 50-50 KwikPen) 65 unit subcut BID Glucose 12/02/22 propylene glycol 0.6 % eye drops (Systane Complete) 1 drp EACH EYE TID PRN Dry Eyes 12/02/22 piperacillin-tazobactam 3.375 gram intravenous solution 3.375 g IV Q12H 40 days #80 ea 12/05/22 vancomycin 1 gram/200 mL in dextrose 5 % intravenous piggyback 1,000 mg IV Q24H 40 days #40 doses 12/05/22 Hospital Course Operations None Procedures None Summary of Care Provided Minutes Spent on Discharge: 37 Hospital Course: Per HPI: Hospital Course: 1. Diabetic right foot infection with osteomyelitis due to Staphylococcus and corynebacterium/type 2 diabetes with neuropathy ? ID is on board with plan for long-term Zosyn, PICC is in her left upper extremity, prescriptions have been written ? Appreciate podiatry and ID's assistance ? We will continue to monitor her blood sugars and make adjustments as necessary ? Continue with gabapentin ? I discussed with her the plan for discharge today she expressed understanding of the risk and benefits of going to the group home and would like to go today to start her rehab. Can resume her home blood sugar medications. 2. HTN/HLD ? Blood pressures are stable, can continue with her home blood pressure medications ? Continue with Zetia 3. GERD ? Stable ? Continue with PPI DVT: Heparin Weight / BMI Weight Weight: 184 lb 11.958 oz Body Mass Index (BMI) 33.7 ABG / Lab / Microbiology Data Result Diagrams: 12/09/22 09:20 12/09/22 09:20 Laboratory: Laboratory Results - last 24 hr 12/10/22 16:54: POC Glucose 294 H 12/10/22 23:17: POC Glucose 238 H 12/11/22 08:59: POC Glucose 191 H 12/11/22 11:41: POC Glucose 251 H Microbiology: Microbiology 12/03/22 12:49 Bone - 5th Toe Gram Stain - Final 12/03/22 12:49 Bone - 5th Toe Wound Culture - Final Corynebacterium striatum Streptococcus thoraltensis 12/03/22 12:49 Bone - 5th Toe Anaerobic Culture - Final No anaerobic bacteria isolated. 12/03/22 12:42 Tissue - Right Foot Gram Stain - Final 12/03/22 12:42 Tissue - Right Foot Wound Culture - Final Kocuria kristinae Streptococcus thoraltensis Staphylococcus lugdunensis 12/03/22 12:42 Tissue - Right Foot Anaerobic Culture - Final No anaerobic bacteria isolated. 12/01/22 19:20 Blood Culture (Wb) - Right Hand Blood Culture - Final No growth in 5 days. 12/01/22 19:20 Blood Culture (Wb) - Right Hand Blood Culture - Final No growth in 5 days. 12/03/22 12:55 Tissue Ulcer - 5th Toe Gram Stain - Final 12/03/22 12:55 Tissue Ulcer - 5th Toe Wound Culture - Final Staphylococcus warneri Corynebacterium striatum 12/03/22 12:55 Tissue Ulcer - 5th Toe Anaerobic Culture - Final No anaerobic bacteria isolated. 12/03/22 12:53 Tissue Ulcer - 5th Toe Gram Stain - Final 12/03/22 12:53 Tissue Ulcer - 5th Toe Wound Culture - Final Strep anginosus 12/03/22 12:53 Tissue Ulcer - 5th Toe Anaerobic Culture - Final No anaerobic bacteria isolated. Meaningful Use Info Meaningful Use Diagnoses (Choose all that apply): None applicable Discharge Plan Admission Admit Date/Time: 12/01/22 21:58 Attending Provider: Tha Maria Primary Care Provider: Hever Otoole Consulting Providers: Foster Melendez ; Danny Amaro ; Don Keith ; Hever Mcdonald Discharge Orders/Prescriptions Prescriptions: New piperacillin-tazobactam 3.375 gram recon soln 3.375 g IV Q12H 40 Days Qty: 80 0RF Rx Instructions: stop date 01/14/23 dx: foot osteo weekly bmp, cbc, esr, and vanc trough. Fax to [phone] vancomycin in dextrose 5 % 1 gram/200 mL Piggyback 1,000 mg IV Q24H 40 Days Qty: 40 0RF Rx Instructions: stop date 01/14/23 dx: foot osteo weekly bmp, cbc, esr, and vanc trough. Fax to [phone] Continued aspirin [Adult Low Dose Aspirin] 81 mg tablet,delayed release (DR/EC) 81 mg PO DAILY loratadine [Allergy Relief (loratadine)] 10 mg tablet 10 mg PO DAILY ascorbic acid (vitamin C) 1,000 mg capsule 1 g PO BID ICaps AREDS [id number] aeii-pi-hahc capsule 1 cap PO BID Kerendia 10 mg tablet 10 mg PO DAILY losartan 50 mg tablet 50 mg PO DAILY amlodipine 5 mg tablet 5 mg PO QHS omeprazole 20 mg Capsule,Delayed Release(Dr/Ec) 20 mg PO DAILY glucosamine-chondroitin [Osteo Bi-Flex] 250-200 mg Tablet 2 tab PO DAILY gabapentin 300 mg Tablet 300 mg PO DAILY ezetimibe 10 mg tablet 10 mg PO QHS Humalog Mix 50-50 KwikPen 100 unit/mL (50-50) insulin pen 65 unit subcut BID Trulicity 1.5 mg/0.5 mL pen injector 1.5 mg subcut QWEEK Rx Instructions: Due today 12/02 Systane Complete 0.6 % Drops 1 drp EACH EYE TID PRN (Reason: Dry Eyes) cholecalciferol (vitamin D3) 50 mcg (2,000 unit) capsule 50 mcg PO DAILY Referrals / Follow Up: Hever Otoole DO [Primary Care Provider] - Disposition Disposition (needs filled in before D/C Order can be placed): Long-Term Facility Charges/Coding Visit Charges Inpatient E&M: 92685 Disch Hosp >30min
[2022-12-11] MEDS: Gabapentin 300 MG Capsule PO (17:40)
[2022-12-11 18:05] LABS: Bedside Glucose 200 mg/dL (74-106)
--- NOTE | 2022-12-11 19:55 | NURSING ---
This RN gave Report to Laura DEMPSEY at [facility] at this time.
== END 2022-12-11 19:05 | disposition skilled nursing facility (03) | DRG 629 ==
LOC: ED 21:29 → ICU 22:49 → MS3 12-04 18:27
PROVIDERS: Internal Medicine; Podiatrist; Admitting Provider Hospitalist; Emergency Provider Emergency Medicine; PCP Family Medicine; Visit Provider Family Medicine
PROC: 0QBN0ZX Excision of Right Metatarsal, Open Approach, Diagnostic (ICD-10-PCS; principal; 2022-12-03 11:50)
DX: E11.628 Type 2 diabetes mellitus with other skin complications (principal); E11.52 Type 2 diabetes mellitus with diabetic peripheral angiopathy with gangrene; E87.1 Hypo-osmolality and hyponatremia; L02.611 Cutaneous abscess of right foot; M86.171 Other acute osteomyelitis, right ankle and foot; M84.474A Pathological fracture, right foot, initial encounter for fracture; E11.21 Type 2 diabetes mellitus with diabetic nephropathy; L97.512 Non-pressure chronic ulcer of other part of right foot with fat layer exposed; B95.8 Unspecified staphylococcus as the cause of diseases classified elsewhere; N17.9 Acute kidney failure, unspecified; E11.621 Type 2 diabetes mellitus with foot ulcer; E11.42 Type 2 diabetes mellitus with diabetic polyneuropathy; E11.65 Type 2 diabetes mellitus with hyperglycemia; E11.22 Type 2 diabetes mellitus with diabetic chronic kidney disease; Z79.4 Long term (current) use of insulin; E11.51 Type 2 diabetes mellitus with diabetic peripheral angiopathy without gangrene; N18.4 Chronic kidney disease, stage 4 (severe); E11.59 Type 2 diabetes mellitus with other circulatory complications; D72.810 Lymphocytopenia; I12.9 Hypertensive chronic kidney disease with stage 1 through stage 4 chronic kidney disease, or unspecified chronic kidney disease; E78.5 Hyperlipidemia, unspecified; Q66.229 Congenital metatarsus adductus, unspecified foot; K21.9 Gastro-esophageal reflux disease without esophagitis; Z79.82 Long term (current) use of aspirin; Z79.1 Long term (current) use of non-steroidal anti-inflammatories (NSAID)
CPT/HCPCS: 36415; 36569; 71045; 73630; 73718; 80048; 80053; 80202; 82962; 83605; 85025; 85610; 85652; 85730; 86140; 87015; 87040; 87070; 87075; 87077; 87102; 87116; 87176; 87186; 87205; 87206; 87811; 88307; 88311; 93005; 97110; 97116; 97162; 97166; 97530; 97535; 99284; J7030; J7050

== ENCOUNTER 2022-12-22 19:03 | Inpatient (IN) | payer MEDICARE, SELFPAY ==
[2022-12-22 19:06] VITALS: BP 161/80; PULSE 93; RESP 21; TEMP 36.3; O2SAT 80; O2SAT 93
--- NOTE | 2022-12-22 19:24 | EKG12_ITS ---
Test Reason : DYSRHYTHMIA Blood Pressure : / mmHG Vent. Rate : 093 BPM Atrial Rate : 093 BPM P-R Int : 140 ms QRS Dur : 088 ms QT Int : 378 ms P-R-T Axes : 055 076 031 degrees QTc Int : 469 ms Normal sinus rhythm Septal infarct (cited on or before 13-OCT-2022) Abnormal ECG Confirmed by CHASE CHAVEZ ([id number]), book or script editor AKI CONWAY ([id number]) on 12/24/2022 1:18:30 PM Referred By: TL Confirmed By:CHASE CHAVEZ
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
--- NOTE | 2022-12-22 19:29 | US_ITS ---
STUDY: VENOUS DOPPLER ULTRASOUND - BILATERAL LOWER EXTREMITIES REASON FOR EXAM: Female, 67 years old. SHORTNESS OF BREATH TECHNIQUE: Ultrasound evaluation of the deep vein system to include rashid-scale imaging and compression was performed. Rashid-scale imaging and Doppler sonographic evaluation, including duplex spectral analysis and qualitative color flow sonography, was performed. COMPARISON: None. FINDINGS: RIGHT LEG Common Femoral Vein: Normal compression, spontaneity and augmentation. Normal color Doppler. Common Femoral Vein/Greater Saphenous Junction: Normal compression, spontaneity and augmentation. Normal color Doppler. Deep Femoral Vein: Normal compression, spontaneity and augmentation. Normal color Doppler. Femoral Proximal: Normal compression, spontaneity and augmentation. Normal color Doppler. Femoral Middle: Normal compression, spontaneity and augmentation. Normal color Doppler. Femoral Distal: Normal compression, spontaneity and augmentation. Normal color Doppler. Popliteal Vein: Normal compression, spontaneity and augmentation. Normal color Doppler. Posterior Tibial Vein: Normal compression, spontaneity and augmentation. Normal color Doppler. Peroneal Vein: Normal compression, spontaneity and augmentation. Normal color Doppler. LEFT LEG Common Femoral Vein: Normal compression, spontaneity and augmentation. Normal color Doppler. Common Femoral Vein/Greater Saphenous Junction: Normal compression, spontaneity and augmentation. Normal color Doppler. Deep Femoral Vein: Normal compression, spontaneity and augmentation. Normal color Doppler. Femoral Proximal: Normal compression, spontaneity and augmentation. Normal color Doppler. Femoral Middle: Normal compression, spontaneity and augmentation. Normal color Doppler. Femoral Distal: Normal compression, spontaneity and augmentation. Normal color Doppler. Popliteal Vein: Normal compression, spontaneity and augmentation. Normal color Doppler. Posterior Tibial Vein: Normal compression, spontaneity and augmentation. Normal color Doppler. Peroneal Vein: Normal compression, spontaneity and augmentation. Normal color Doppler. US/Venous Duplex Imag/Jay Extrem IMPRESSION: Normal venous Doppler ultrasound of the bilateral lower extremities. Incidental finding of small anechoic density posterior to the left knee measuring 2.7 x 1.8 cm possibly representing Slade''s cyst Electronically Signed: Wilfrido Xavier MD at 20:50 EDT Reading Location ID and State: [facility] / [place] , Service support ,
[2022-12-22 19:50] VITALS: O2SAT 80
[2022-12-22 19:53] LABS: Absolute Lymphocyte Count 1.08 X10^3/uL (0.83-4.51); Absolute Neutrophil Count 7.2 X10^3/uL (2.0-7.7); Basophil# 0.05 X10^3/uL; Basophil% 0.5 % (0-1); Eosinophil# 0.41 X10^3/uL; Eosinophils% 4.3 % (0-5); Hematocrit 29.5 % (37-47); Hemoglobin 8.9 g/dL (12.0-15.0); Lymphocyte # 1.08 X10^3/ul (0.83-4.51); Lymphocyte % 11.2 % (19-41); Mean Corp Hgb Conc 30.2 g/dL (32-36); Mean Corpuscular Hgb 27.2 pg (27.0-32.0); Mean Corpuscular Volume 90.2 fL (81-99); Mean Platelet Vol. 9.4 fl (6.2-12.0); Monocyte# 0.86 X10^3/uL; Monocyte% 8.9 % (0-10); NRBC Flagged by Analyzer 0 % (0-5); Neutrophil # 7.17 X10^3/uL (2.7-7.7); Neutrophil % 74.7 % (47-70); Platelet Count 361 K/mm3 (150-450); RBC Distribution Width CV 14.5 % (11.6-14.6); Red Blood Count 3.27 M/mm3 (4.2-5.4); White Blood Count 9.6 K/mm3 (4.4-11.0)
--- NOTE | 2022-12-22 20:00 | RAD_ITS ---
STUDY: X-RAY CHEST REASON FOR EXAM: Female, 67 years old. sob TECHNIQUE: PA and lateral COMPARISON: December 03, 2022 FINDINGS: Diffuse bilateral perihilar infiltrates or pulmonary edema with small pleural effusions. There is no demonstrated pleural abnormality. Normal size heart. Normal mediastinum and juan. Normal visualized pulmonary arteries. Normal visualized aortic arch and descending thoracic aorta. Normal visualized thoracic spine. Normal visualized ribs, clavicles, and shoulders. There is no demonstrated abnormality of the visualized soft tissue structures of the upper abdomen. RAD/Chest PA and Lateral IMPRESSION: Nonspecific bilateral perihilar infiltrates or pulmonary edema with small effusions consistent with nonspecific ARDS. Electronically Signed: Wilfrido Xavier MD at 20:15 EDT ,
[2022-12-22 20:06] VITALS: BP 156/77; PULSE 92; RESP 23; O2SAT 95
[2022-12-22 20:11] LABS: International Normalized Ratio 1.2; Prothrombin Time (Protime)PT. 14.4 SECONDS (11.7-14.9)
[2022-12-22 20:12] LABS: Partial Thromboplast Time 34.6 Seconds (24.1-36.2)
[2022-12-22 20:27] LABS: Anion Gap 5 (5-15); BUN 58 mg/dL (7-18); BUN/Creat Ratio 26.4 RATIO (10-20); Calcium,Total 8.9 mg/dL (8.5-10.1); Chloride 112 mmol/L (98-107); EST Glomerular Filtration Rate 24 mL/min (>60); Est Glom Filt Rate - Afr Amer 29 mL/min (>60); Glucose 104 mg/dL (74-106); Potassium 4.5 mmol/L (3.5-5.1); Sodium Level 139 mmol/L (136-145); Troponin-I HS 19 pg/mL (3.0-54.0)
[2022-12-22 20:48] VITALS: BMI 39.2
--- NOTE | 2022-12-22 20:55 | ED.RN ---
Pt taken off oxygen for imaging. This RN walked into room, pt on RA at 84%. Placed on 2L NC. Resting at 95%. Dr. Moore notified.
[2022-12-22] MEDS: Furosemide 100 MG/10 ML Vial 60 MG IV (21:23)
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
[2022-12-22 21:51] LABS: BNP,B-Type NATRIURETIC PEPTIDE 539.8 pg/mL (0-100)
[2022-12-22 22:06] VITALS: BP 159/90; PULSE 79; RESP 20; TEMP 36.3; O2SAT 95
--- NOTE | 2022-12-22 22:14 | ECHOD_ITS ---
Reason For Study: CHF Procedure This was a 2D Doppler, Color Flow transthoracic echocardiogram. Exam performed portable in patient room. Left Ventricle Normal left ventricle. The estimated ejection fraction is 40-45 %. Right Ventricle Normal right ventricle. Normal systolic function. Atria Normal left atrium. Normal right atrium. Mitral Valve There is mild mitral annular calcification. Mild (1+) mitral valve insufficiency. Tricuspid Valve Normal tricuspid valve. No tricuspid valve insufficiency. Aortic Valve Normal aortic valve. Pulmonic Valve The pulmonic valve is not well visualized. Great Vessels Normal aortic root. Pericardium/Pleural No pericardial effusion. MMode/2D Measurements & Calculations LVIDd: 3.8 cm IVSd: 1.4 cm Ao root diam: 2.7 cm LVIDs: 2.9 cm LVPWd: 1.4 cm FS: 24.5 % LAV(MOD-bp): 79.3 ml LVAd ap4: 24.2 cm2 SV(MOD-sp4): 26.1 ml LAV(MOD-bp) Indexed: 40.7 ml/m2 LVLd ap4: 7.2 cm LAV(MOD-sp2): 62.5 ml EDV(MOD-sp4): 65.4 ml LAV(MOD-sp4): 88.7 ml EDV(sp4-el): 68.8 ml LVAs ap4: 18.2 cm2 LVLs ap4: 6.7 cm ESV(MOD-sp4): 39.3 ml ESV(sp4-el): 41.7 ml EF(MOD-sp4): 39.9 % EF(sp4-el): 39.3 % SV(sp4-el): 27.1 ml LA A4 area: 26.6 cm2 LA dimension(2D): 4.2 cm RA A4 area: 13.9 cm2 Time Measurements MV dec time: 0.21 sec Doppler Measurements & Calculations MV E max luis: 110.2 cm/sec Lat Peak E' Luis: 8.1 cm/sec Med Peak E' Luis: 6.0 cm/sec MV A max luis: 85.3 cm/sec E/E' lat: 13.6 E/E' med: 18.5 MV E/A: 1.3 MV V2 max: 144.5 cm/sec Ao V2 max: 133.6 cm/sec MV max P.4 mmHg MV dec slope: 553.5 cm/sec2 Ao max P.2 mmHg MV V2 mean: 98.0 cm/sec Ao V2 mean: 97.5 cm/sec MV mean P.1 mmHg Ao mean P.3 mmHg MV V2 VTI: 41.8 cm Ao V2 VTI: 30.4 cm AV (velocity ratio): 1.0 LV V1 max: 134.3 cm/sec MR max luis: 414.2 cm/sec PA V2 max: 90.2 cm/sec LV V1 max P.2 mmHg MR max P.6 mmHg PA V2 mean: 68.0 cm/sec LV V1 mean P.4 mmHg LV V1 mean: 100.5 cm/sec LV V1 VTI: 31.0 cm TR max luis: 321.7 cm/sec TR max P.4 mmHg ECHO/Echo Complete Interpretation Summary The estimated ejection fraction is 40-45 %. Mild to moderate LV systolic dysfunction Anteroapical and distal septal hypokinesia Mild MR No prior echocardiogram to compare. Ordering Physician: Aiyana Porter Referring Physician: KUSUM RODRÍGUEZ Performed By: Therese Norwood RCS
[2022-12-22 22:24] VITALS: BP 159/82; PULSE 95; RESP 20; TEMP 36.8; O2SAT 93
[2022-12-22 22:33] VITALS: BMI 38.5
[2022-12-22] MEDS: Multivitamin (Healthy Eyes) Capsule 1 CAP PO (23:06)
[2022-12-22] MEDS: Atorvastatin Calcium 20 MG Tablet PO (23:06)
[2022-12-22] MEDS: Ferrous Sulfate 325 MG Tablet PO (23:06)
[2022-12-22] MEDS: Carvedilol 6.25 MG Tablet PO (23:06)
[2022-12-22] MEDS: amLODIPine 5 MG Tablet PO (23:06)
[2022-12-22] MEDS: Ascorbic Acid 500 MG Tablet 1000 MG PO (23:06)
[2022-12-22] MEDS: Ezetimibe 10 MG Tablet PO (23:06)
[2022-12-22 23:10] VITALS: O2SAT 93
[2022-12-22] MEDS: Gabapentin 300 MG Capsule PO (23:42)
[2022-12-23] VITALS (10 sets, daily range): BP systolic 124–170; BP diastolic 54–80; PULSE 78–88; RESP 18–22; TEMP 36.6–36.9; O2SAT 93–98; BMI 38.5
[2022-12-23 00:42] LABS: Troponin-I HS 20 pg/mL (3.0-54.0)
--- NOTE | 2022-12-23 01:06 | PCM.RX.CS ---
Consult Pharmacy has been consulted to manage selected antiobiotic: Vancomycin Type of Consult: New start Suspected Infection: Osteomyelitis Labs: Sodium 139 mmol/L (136-145) 12/22/22 19:47 Potassium 4.5 mmol/L (3.5-5.1) 12/22/22 19:47 Chloride 112 mmol/L (98-107) H 12/22/22 19:47 Carbon Dioxide 22.0 mmol/L (21.0-32.0) 12/22/22 19:47 Anion Gap 5 (5-15) 12/22/22 19:47 BUN 58 mg/dL (7-18) H 12/22/22 19:47 Creatinine 2.20 mg/dL (0.55-1.02) H 12/22/22 19:47 Est GFR (MDRD) Af Amer 29 mL/min (>60) L 12/22/22 19:47 Est GFR (MDRD) Non-Af 24 mL/min (>60) L 12/22/22 19:47 BUN/Creatinine Ratio 26.4 RATIO (10-20) H 12/22/22 19:47 Glucose 104 mg/dL (74-106) 12/22/22 19:47 Weight used for dosin kg Estimated Creatinine Clearance: 27 by ABW Goal Trough: 15-20 mcg/mL Pharmacy Plan for Drug Dosing: Patient has been on vancomycin IV at other facility. Ordered through 01/14/23. Upon admit unable to verify current dose or when last dose was given. Will draw a random vancomycin level with a.m. labs 12/23/22 to determine dosing. Pharmacy Service will continue to monitor and adjust dosing as required. Follow-Up Labs: Trough Vancomycin - random Labs to be done on [date and time ordered]: 12/23/22 @0600
[2022-12-23 01:25] LABS: Bedside Glucose 91 mg/dL (74-106)
[2022-12-23] MEDS: 0.9% Saline Lock 10 ML Syringe IV ×4 (02:16→17:12)
[2022-12-23 02:37] LABS: Absolute Lymphocyte Count 0.99 X10^3/uL (0.83-4.51); Absolute Neutrophil Count 8.8 X10^3/uL (2.0-7.7); Basophil# 0.06 X10^3/uL; Basophil% 0.5 % (0-1); Eosinophil# 0.46 X10^3/uL; Hematocrit 30.6 % (37-47); Hemoglobin 9.3 g/dL (12.0-15.0); Lymphocyte # 0.99 X10^3/ul (0.83-4.51); Lymphocyte % 8.7 % (19-41); Mean Corp Hgb Conc 30.4 g/dL (32-36); Mean Corpuscular Hgb 27.4 pg (27.0-32.0); Mean Platelet Vol. 9.5 fl (6.2-12.0); Monocyte# 1.03 X10^3/uL; NRBC Flagged by Analyzer 0 % (0-5); Neutrophil # 8.84 X10^3/uL (2.7-7.7); Neutrophil % 77.4 % (47-70); Platelet Count 374 K/mm3 (150-450); RBC Distribution Width CV 14.6 % (11.6-14.6); White Blood Count 11.4 K/mm3 (4.4-11.0)
[2022-12-23 02:55] LABS: Troponin-I HS 21 pg/mL (3.0-54.0)
[2022-12-23 03:06] LABS: ALB/GLOB Ratio 0.6 RATIO (0.9-2.4); AST(SGOT) 13 U/L (15-37); Alanine Aminotransfer ALT/SGPT 22 U/L (13-56); Albumin, Serum 2.5 g/dL (3.2-5.0); Alkaline Phosphatase 232 U/L (45-117); Anion Gap 5 (5-15); BUN 58 mg/dL (7-18); BUN/Creat Ratio 25.8 RATIO (10-20); Calcium,Total 9.2 mg/dL (8.5-10.1); Chloride 111 mmol/L (98-107); Cholesterol 138 mg/dL (200); Creatinine, Serum 2.25 mg/dL (0.55-1.02); EST Glomerular Filtration Rate 23 mL/min (>60); Est Glom Filt Rate - Afr Amer 28 mL/min (>60); Estimated Creatinine Clearance 18.31 ml/min; Ferritin 76 ng/mL (8-252); Globulin 4.5 g/dL (2.2-4.2); Glucose 92 mg/dL (74-106); High Density Lipoprotein 52 mg/dL; Iron 25 ug/dL (50-170); Iron Binding Capacity,Total 307 ug/dL (250-450); PERCENT IRON SATURATION 8.1 % (15.0-55.0); Potassium 4.5 mmol/L (3.5-5.1); Sodium Level 141 mmol/L (136-145); Thyroid Stim Hormone (TSH) 1.39 uIU/mL (0.358-3.74); Triglycerides 40 mg/dL; Very Low Density Lipoprotein 8 mg/dL (5-40)
[2022-12-23] MEDS: hydrALAZINE 20 MG/ML Vial 10 MG IV (05:39)
[2022-12-23 06:59] LABS: Vancomycin, Random Level 30.5 ug/mL (0.0-15.0)
[2022-12-23] MEDS: Insulin NPH Human 100 UNITS/ML PEN 25 UNITS SC ×2 (08:01→17:12)
[2022-12-23] MEDS: Ferrous Sulfate 325 MG Tablet PO ×3 (08:02→17:12)
[2022-12-23] MEDS: Aspirin E.C. 81 MG Tablet PO (08:02)
[2022-12-23] MEDS: Carvedilol 6.25 MG Tablet PO ×2 (08:02→17:12)
[2022-12-23 08:36] LABS: Bedside Glucose 135 mg/dL (74-106)
--- NOTE | 2022-12-23 09:21 | CASEMGMT ---
Patient is from [facility]. SW met with patient. Introduced self and role at [facility]. SW asked patient if her plan is to return to [facility] and patient states that is her plan. Marylin MICHELE
--- NOTE | 2022-12-23 09:36 | CASEMGMT ---
Patient wishes to return to [facility]. Referral sent. Della Griffith
--- NOTE | 2022-12-23 10:13 | CASEMGMT ---
[facility] willing to accept patient back. Pre-cert required.
[2022-12-23] MEDS: Insulin Lispro 100 UNIT/ML INSULN.PEN SC ×2 (10:58→17:14)
[2022-12-23] MEDS: Cholecalciferol (VIT D3) 25 MCG TABLET (1,000 UNITS) 50 MCG PO (10:59)
[2022-12-23] MEDS: Ascorbic Acid 500 MG Tablet 1000 MG PO ×2 (11:00→21:54)
[2022-12-23] MEDS: Losartan Potassium 50 MG Tablet PO (11:00)
[2022-12-23] MEDS: Multivitamin (Healthy Eyes) Capsule 1 CAP PO ×2 (11:00→21:54)
[2022-12-23] MEDS: Pantoprazole Sodium 20 MG Tablet PO (11:00)
[2022-12-23] MEDS: Enoxaparin 30 MG/0.3 ML Syringe SC (11:00)
[2022-12-23] MEDS: Furosemide 40 MG/4 ML Vial IV ×2 (11:01→17:12)
--- NOTE | 2022-12-23 11:23 | PCM.RX.CS ---
Consult Pharmacy has been consulted to manage selected antiobiotic: Vancomycin Type of Consult: Follow-up Suspected Infection: Osteomyelitis Prior Doses of Antibiotics Received/Current Regimen: the patient was apparently on vanc 1000mg IV q24h outside the hospital with the most recent dose given about noon yesterday 12/22/22 Labs: Sodium 141 mmol/L (136-145) 12/23/22 02:30 Potassium 4.5 mmol/L (3.5-5.1) 12/23/22 02:30 Chloride 111 mmol/L (98-107) H 12/23/22 02:30 Carbon Dioxide 25.0 mmol/L (21.0-32.0) 12/23/22 02:30 Anion Gap 5 (5-15) 12/23/22 02:30 BUN 58 mg/dL (7-18) H 12/23/22 02:30 Creatinine 2.25 mg/dL (0.55-1.02) H 12/23/22 02:30 Est GFR (MDRD) Af Amer 28 mL/min (>60) L 12/23/22 02:30 Est GFR (MDRD) Non-Af 23 mL/min (>60) L 12/23/22 02:30 BUN/Creatinine Ratio 25.8 RATIO (10-20) H 12/23/22 02:30 Glucose 92 mg/dL (74-106) 12/23/22 02:30 Random Vancomycin 30.5 ug/mL (0.0-15.0) H 12/23/22 05:54 Weight used for dosin kg Estimated Creatinine Clearance: 26ml/min Goal Trough: 15-20 mcg/mL Pharmacy Plan for Drug Dosing: The vanc random level drawn at 05:54 this morning was 30.5. It was drawn about 18 hours after the most recent 1000mg dose. While it would have been lower if drawn closer to 24 hours, it still would most likely have been well above 20 still so recommend to continue holding the dose and draw another random level tomorrow nitroglycerin neutralizer with AM labs. Will use that level to determine if dosing should be resumed at a newly calculated dose. The patient's CrCl of 26 ml/min was calculated using an adjusted body weight. Pharmacy Service will continue to monitor and adjust dosing as required. Follow-Up Labs: Trough Vancomycin - random Labs to be done on [date and time ordered]: 12/24/22 0600
[2022-12-23 11:40] LABS: Bedside Glucose 228 mg/dL (74-106)
--- NOTE | 2022-12-23 12:57 | PN_ITS ---
Subjective Subjective Patient seen and examined. She had no active complaints and said her shortness of breath was improving. She denied any chest pain, palpitations, dizziness, nausea, vomiting or diarrhea. Review of systems is otherwise negative. Objective Data Objective Data Vital Signs: Vital Signs Temp Pulse Resp BP Pulse Ox O2 Del Method O2 Flow Rate 98.1 F 85 20 H 124/60 H 94 Nasal Cannula 3 12/23/22 12:00 12/23/22 12:00 12/23/22 12:00 12/23/22 12:00 12/23/22 12:00 12/23/22 12:00 12/23/22 12:00 Oxygen Flow Rate (L/min) 3 Oxygen Delivery Method Nasal Cannula Weight: 209 lb 7.026 oz Body Mass Index (BMI) 38.5 Intake & Output: Intake and Output for Last 24 Hours 12/21/22 12/22/22 12/23/22 23:59 23:59 23:59 Intake Total 250 / 250 Output Total 3350 / 3350 Balance -3100 / -3100 Lab / Micro Data Result Diagrams: 12/23/22 02:30 12/23/22 02:30 Labs: Laboratory Results - last 24 hr 12/22/22 19:47: WBC 9.6, RBC 3.27 L, Hgb 8.9 L, Hct 29.5 L, MCV 90.2, MCH 27.2, MCHC 30.2 L, RDW Std Deviation 48.0 H, RDW Coeff of Steven 14.5, Plt Count 361, MPV 9.4, Immature Gran % (Auto) 0.400, Neut % (Auto) 74.7 H, Lymph % (Auto) 11.2 L, Angelina % (Auto) 8.9, Eos % (Auto) 4.3, Baso % (Auto) 0.5, Absolute Neuts (auto) 7.2, Absolute Lymphs (auto) 1.08, Nucleated RBC % 0 12/22/22 19:47: PT 14.4, INR 1.2, APTT 34.6 12/22/22 19:47: Sodium 139, Potassium 4.5, Chloride 112 H, Carbon Dioxide 22.0, Anion Gap 5, BUN 58 H, Creatinine 2.20 H, Est GFR (MDRD) Af Amer 29 L, Est GFR (MDRD) Non-Af 24 L, BUN/Creatinine Ratio 26.4 H, Glucose 104, Calcium 8.9, Troponin I High Sens 19 12/22/22 19:47: B-Natriuretic Peptide 539.8 H 12/22/22 19:47: Magnesium 2.0 12/22/22 23:00: POC Glucose 91 12/23/22 00:05: Troponin I High Sens 20 12/23/22 02:30: WBC 11.4 H, RBC 3.40 L, Hgb 9.3 L, Hct 30.6 L, MCV 90.0, MCH 27.4, MCHC 30.4 L, RDW Std Deviation 48.0 H, RDW Coeff of Steven 14.6, Plt Count 374, MPV 9.5, Immature Gran % (Auto) 0.400, Neut % (Auto) 77.4 H, Lymph % (Auto) 8.7 L, Angelina % (Auto) 9.0, Eos % (Auto) 4.0, Baso % (Auto) 0.5, Absolute Neuts ( auto) 8.8 H, Absolute Lymphs (auto) 0.99, Nucleated RBC % 0 12/23/22 02:30: Sodium 141, Potassium 4.5, Chloride 111 H, Carbon Dioxide 25.0, Anion Gap 5, BUN 58 H, Creatinine 2.25 H, Estim Creat Clear Calc 18.31, Est GFR (MDRD) Af Amer 28 L, Est GFR (MDRD) Non-Af 23 L, BUN/Creatinine Ratio 25.8 H, Glucose 92, Calcium 9.2, Iron 25 L, TIBC 307, Iron Saturation 8.1 L, Ferritin 76, Total Bilirubin 0.30, AST 13 L, ALT 22, Alkaline Phosphatase 232 H, Total Protein 7.0, Albumin 2.5 L, Globulin 4.5 H, Albumin/Globulin Ratio 0.6 L, Triglycerides 40, Cholesterol 138, LDL Cholesterol 78, VLDL Cholesterol 8, HDL Cholesterol 52, TSH 1.39 12/23/22 02:30: Troponin I High Sens 21 12/23/22 05:54: Random Vancomycin 30.5 H 12/23/22 07:43: POC Glucose 135 H 12/23/22 10:51: POC Glucose 228 H Radiography Diagnostic Testing: Radiology Impression Venous Duplex 12/22/22 19:29 IMPRESSION: Normal venous Doppler ultrasound of the bilateral lower extremities. Incidental finding of small anechoic density posterior to the left knee measuring 2.7 x 1.8 cm possibly representing Slade''s cyst Electronically Signed: Wilfrido Xavier MD at 20:50 EDT , Chest X-Ray 12/22/22 20:00 IMPRESSION: Nonspecific bilateral perihilar infiltrates or pulmonary edema with small effusions consistent with nonspecific ARDS. Electronically Signed: Wilfrido Xavier MD at 20:15 EDT , Physical Exam Const alert Constitutional Narrative: lethargic General Appearance: cooperative HEENT normocephalic, head/scalp atraumatic, moist oral mucous membranes and oropharynx normal Eyes PERRL and EOMs intact bilaterally Neck supple and no JVD Lymph Lymphatic: no lymphadenopathy noted and no lymphedema noted Resp Resp Narrative: mildly diminished breath sounds bibasally, no wheezes or crackles. on 3L of oxygen by nasal canula Cardio regular rate, regular rhythm, S1 normal heart sound, S2 normal heart sound and no murmurs GI normal to inspection, nondistended, normoactive bowel sounds, soft to palpation and non-tender Extremity normal capillary refill Skin General Skin Exam: no breakdown Neuro CN's II-XII intact bilaterally, no focal motor deficits, no sensory deficits noted and deep tendon reflexes 2+ bilaterally Motor Exam: strength 5/5 throughout Psych thought process normal Mood & Affect: flat affect Assessment & Plan Assessment/Plan (1) CHF (congestive heart failure): (2) Fluid overload: PLAN: Plan #Hypoxia due to acute heart failure, with unclear EF * Came in with shortness of breath and weight gain of about 29 pounds since her most recent admission. * She was hypoxic down to 80% on room air. * On IV Lasix. Monitor intake and output. Fluid restriction 1500 cc daily. * On beta-suresh. * 2D echo ordered and pending. * Titrate oxygen to maintain saturation above 90%. * #Recent history of right foot osteomyelitis * Cultures during previous admission grew Staphylococcus and corynebacterium. On IV vancomycin and Zosyn. Continue on antibiotics for 6 weeks. * Has wound VAC in place. * Intact dressing to right lower extremity. * #CKD stage IV: Creatinine is 2.2. Will monitor. #Anemia: Iron is 25 with ferritin of 76 and iron saturation of only 8.1. We wi ll check stool for occult blood. Hemoglobin is 9.3 today, so can be followed up on outpatient basis. #Type 2 diabetes mellitus with neuropathy.: On Lantus. Insulin sliding scale. Accu-Cheks ACHS. #Hypertension: On amlodipine and losartan. Coreg added on. #Hyperlipidemia: On statin #Obesity: BMI is 38.5. Complicates acute care, expected recovery and prognosis. DVT prophylaxis: heparin Charges/Coding Visit Charges Inpatient E&M: 37580 Subs Hosp L2
--- NOTE | 2022-12-23 13:14 | WOUNDNOTE ---
wound photo: right foot
--- NOTE | 2022-12-23 13:15 | WOUNDNOTE ---
wound photo: right foot
[2022-12-23] MEDS: Gabapentin 300 MG Capsule PO (17:12)
[2022-12-23] MEDS: Insulin Lispro 100 UNIT/ML INSULN.PEN 25 UNIT SC (17:14)
[2022-12-23 19:46] LABS: Bedside Glucose 156 mg/dL (74-106)
[2022-12-23] MEDS: Ezetimibe 10 MG Tablet PO (21:54)
[2022-12-23] MEDS: Atorvastatin Calcium 20 MG Tablet PO (21:54)
[2022-12-23] MEDS: amLODIPine 5 MG Tablet PO (21:54)
--- NOTE | 2022-12-23 21:55 | NURSING ---
VSA routine and focus assessment pushed till morning, @0500 per pt request.
[2022-12-23 22:21] LABS: Bedside Glucose 77 mg/dL (74-106)
[2022-12-24] VITALS (10 sets, daily range): BP systolic 114–148; BP diastolic 55–64; PULSE 74–87; RESP 16–18; TEMP 36.9–37.4; O2SAT 85–99; BMI 38.0
[2022-12-24 05:52] LABS: Absolute Lymphocyte Count 1.61 X10^3/uL (0.83-4.51); Absolute Neutrophil Count 6.1 X10^3/uL (2.0-7.7); Basophil# 0.07 X10^3/uL; Basophil% 0.7 % (0-1); Eosinophil# 0.51 X10^3/uL; Eosinophils% 5.4 % (0-5); Hematocrit 28.6 % (37-47); Hemoglobin 8.5 g/dL (12.0-15.0); Lymphocyte # 1.61 X10^3/ul (0.83-4.51); Lymphocyte % 16.9 % (19-41); Mean Corp Hgb Conc 29.7 g/dL (32-36); Mean Corpuscular Hgb 27.2 pg (27.0-32.0); Mean Corpuscular Volume 91.7 fL (81-99); Mean Platelet Vol. 9.5 fl (6.2-12.0); Monocyte# 1.17 X10^3/uL; Monocyte% 12.3 % (0-10); NRBC Flagged by Analyzer 0 % (0-5); Neutrophil # 6.09 X10^3/uL (2.7-7.7); Neutrophil % 64.2 % (47-70); Platelet Count 340 K/mm3 (150-450); RBC Distribution Width CV 14.8 % (11.6-14.6); RBC Distribution Width SD 49.4 fl (35.1-43.9); Red Blood Count 3.12 M/mm3 (4.2-5.4); White Blood Count 9.5 K/mm3 (4.4-11.0)
[2022-12-24 06:21] LABS: Anion Gap 5 (5-15); BUN 72 mg/dL (7-18); BUN/Creat Ratio 27.1 RATIO (10-20); Calcium,Total 9.1 mg/dL (8.5-10.1); Chloride 108 mmol/L (98-107); Creatinine, Serum 2.66 mg/dL (0.55-1.02); EST Glomerular Filtration Rate 19 mL/min (>60); Est Glom Filt Rate - Afr Amer 23 mL/min (>60); Estimated Creatinine Clearance 15.49 ml/min; Glucose 98 mg/dL (74-106); Potassium 4.6 mmol/L (3.5-5.1); Sodium Level 136 mmol/L (136-145)
[2022-12-24 06:24] LABS: Vancomycin, Random Level 23.1 ug/mL (0.0-15.0)
--- NOTE | 2022-12-24 06:53 | PCM.RX.CS ---
Consult Pharmacy has been consulted to manage selected antiobiotic: Vancomycin Type of Consult: Follow-up Labs: Sodium 136 mmol/L (136-145) 12/24/22 05:39 Potassium 4.6 mmol/L (3.5-5.1) 12/24/22 05:39 Chloride 108 mmol/L (98-107) H 12/24/22 05:39 Carbon Dioxide 23.0 mmol/L (21.0-32.0) 12/24/22 05:39 Anion Gap 5 (5-15) 12/24/22 05:39 BUN 72 mg/dL (7-18) H 12/24/22 05:39 Creatinine 2.66 mg/dL (0.55-1.02) H 12/24/22 05:39 Est GFR (MDRD) Af Amer 23 mL/min (>60) L 12/24/22 05:39 Est GFR (MDRD) Non-Af 19 mL/min (>60) L 12/24/22 05:39 BUN/Creatinine Ratio 27.1 RATIO (10-20) H 12/24/22 05:39 Glucose 98 mg/dL (74-106) 12/24/22 05:39 Random Vancomycin 23.1 ug/mL (0.0-15.0) H 12/24/22 05:39 Weight used for dosin.9 kg Estimated Creatinine Clearance: 21.9ML/MIN Goal Trough: 15-20 mcg/mL Pharmacy Plan for Drug Dosing: The vanc random level drawn at 05:39 today was 23.1. Still above goal so will continue to hold dosing. Recheck a random level tomorrow morning. SCr up to 2.66 today. The patient's CrCl of 21.9 ml/min was calculated using an adjusted body weight. Pharmacy Service will continue to monitor and adjust dosing as required. Follow-Up Labs: Trough Vancomycin - random Labs to be done on [date and time ordered]: 12/25/22 06:00
[2022-12-24 08:31] LABS: Bedside Glucose 84 mg/dL (74-106)
[2022-12-24] MEDS: Furosemide 40 MG/4 ML Vial IV ×2 (09:03→17:07)
[2022-12-24] MEDS: 0.9% Saline Lock 10 ML Syringe IV ×2 (09:03→17:07)
[2022-12-24] MEDS: Enoxaparin 30 MG/0.3 ML Syringe SC (09:03)
[2022-12-24] MEDS: Ferrous Sulfate 325 MG Tablet PO ×3 (09:04→17:07)
[2022-12-24] MEDS: Carvedilol 6.25 MG Tablet PO ×2 (09:04→17:07)
[2022-12-24] MEDS: Ascorbic Acid 500 MG Tablet 1000 MG PO ×2 (09:04→22:13)
[2022-12-24] MEDS: Cholecalciferol (VIT D3) 25 MCG TABLET (1,000 UNITS) 50 MCG PO (09:04)
[2022-12-24] MEDS: FINERENONE 10 MG TABLET PO (09:04)
[2022-12-24] MEDS: Losartan Potassium 50 MG Tablet PO (09:04)
[2022-12-24] MEDS: Multivitamin (Healthy Eyes) Capsule 1 CAP PO ×2 (09:04→22:10)
[2022-12-24] MEDS: Loratadine 10 MG Tablet PO (09:04)
[2022-12-24] MEDS: Aspirin E.C. 81 MG Tablet PO (09:04)
[2022-12-24] MEDS: Insulin NPH Human 100 UNITS/ML PEN 25 UNITS SC ×2 (09:04→17:08)
[2022-12-24] MEDS: Pantoprazole Sodium 20 MG Tablet PO (09:04)
[2022-12-24] MEDS: Insulin Lispro 100 UNIT/ML INSULN.PEN SC ×2 (11:32→17:07)
[2022-12-24 11:51] LABS: Bedside Glucose 176 mg/dL (74-106)
--- NOTE | 2022-12-24 12:37 | PN_ITS ---
Subjective Subjective Patient seen and examined. She had no active complaints today. She was on 2L of oxygen, and felt her breathing was improving. Review of systems is otherwise negative. She is in cumulative negative balance by 2.946L. Objective Data Objective Data Vital Signs: Vital Signs Temp Pulse Resp BP Pulse Ox O2 Del Method O2 Flow Rate 98.4 F 87 16 148/64 H 93 Nasal Cannula 2 12/24/22 09:02 12/24/22 09:02 12/24/22 09:02 12/24/22 09:02 12/24/22 09:02 12/24/22 09:02 12/24/22 09:02 Oxygen Flow Rate (L/min) 2 Oxygen Delivery Method Nasal Cannula Weight: 207 lb 0.225 oz Body Mass Index (BMI) 38.0 Intake & Output: Intake and Output for Last 24 Hours 12/22/22 12/23/22 12/24/22 23:59 23:59 23:59 Intake Total 824.5 / 824.5 629.25 / 629.25 Output Total 3750 / 3750 650 / 650 Balance -2925.5 / -2925.5 -20.75 / -20.75 Lab / Micro Data Result Diagrams: 12/24/22 05:39 12/24/22 05:39 Labs: Laboratory Results - last 24 hr 12/23/22 17:02: POC Glucose 156 H 12/23/22 21:49: POC Glucose 77 12/24/22 05:39: Random Vancomycin 23.1 H 12/24/22 05:39: WBC 9.5, RBC 3.12 L, Hgb 8.5 L, Hct 28.6 L, MCV 91.7, MCH 27.2, MCHC 29.7 L, RDW Std Deviation 49.4 H, RDW Coeff of Steven 14.8 H, Plt Count 340, MPV 9.5, Immature Gran % (Auto) 0.500, Neut % (Auto) 64.2, Lymph % (Auto) 16.9 L , Mccone % (Auto) 12.3 H, Eos % (Auto) 5.4 H, Baso % (Auto) 0.7, Absolute Neuts (auto) 6.1, Absolute Lymphs (auto) 1.61, Nucleated RBC % 0 12/24/22 05:39: Sodium 136, Potassium 4.6, Chloride 108 H, Carbon Dioxide 23.0, Anion Gap 5, BUN 72 H, Creatinine 2.66 H, Estim Creat Clear Calc 15.49, Est GFR (MDRD) Af Amer 23 L, Est GFR (MDRD) Non-Af 19 L, BUN/Creatinine Ratio 27.1 H, Glucose 98, Calcium 9.1 12/24/22 08:09: POC Glucose 84 12/24/22 11:31: POC Glucose 176 H Micro: Microbiology 12/24/22 10:20 Stool Stool Occult Blood (EBONI) - Final Occult Blood Positive Radiography Diagnostic Testing: Radiology Impression Echocardiogram 12/22/22 22:14 Interpretation Summary The estimated ejection fraction is 40-45 %. Mild to moderate LV systolic dysfunction Anteroapical and distal septal hypokinesia Mild MR No prior echocardiogram to compare. Ordering Physician: Aiyana Porter Referring Physician: KUSUM RODRÍGUEZ Performed By: Therese Norwood RCS Physical Exam Const alert, oriented x3 and no apparent distress General Appearance: cooperative HEENT normocephalic, head/scalp atraumatic, moist oral mucous membranes and oropharynx normal Eyes PERRL and EOMs intact bilaterally Neck supple and no JVD Lymph Lymphatic: no lymphadenopathy noted and no lymphedema noted Resp Resp Narrative: mildly diminished breath sounds bibasally, no wheezes or crackles. on 3L of oxygen by nasal canula Cardio regular rate, regular rhythm, S1 normal heart sound, S2 normal heart sound and no murmurs GI normal to inspection, nondistended, normoactive bowel sounds, soft to palpation and non-tender Extremity normal capillary refill Extremity Narrative: right foot wrapped in bandage Skin General Skin Exam: no breakdown Neuro CN's II-XII intact bilaterally, no focal motor deficits, no sensory deficits noted and deep tendon reflexes 2+ bilaterally Motor Exam: strength 5/5 throughout Psych thought process normal Mood & Affect: flat affect Assessment & Plan Assessment/Plan (1) CHF (congestive heart failure): (2) Fluid overload: PLAN: Plan #Hypoxia due to acute heart failure, with reduced EF * being diuresed with IV lasix 40mg bid * in cumulative negative balance by nearly 3L. * 2D echo showed EF of 40-45% with normal normal RVSF and anteroapical and distal septal hypokinesia, with mild to moderate LV systolic dysfunction. * Consult cardiology in light of echo findings * On beta-suresh. * Titrate oxygen to maintain saturation above 90%. * #Recent history of right foot osteomyelitis * Cultures during previous admission grew Staphylococcus and corynebacterium. On IV vancomycin and Zosyn. Continue on antibiotics for 6 weeks. * Has wound VAC in place. * Intact dressing to right lower extremity. * #CKD stage IV: Creatinine has trended up to 2.66, from 2.25 yesterday. May be due to IV lasix. Will switch to PO lasix. Will monitor. #Anemia: * Iron is 25 with ferritin of 76 and iron saturation of only 8.1. * Hb today is 8.5 * stool for occult blood is positive. * will consult gastroenterology. * hold aspirin and lovenox #Type 2 diabetes mellitus with neuropathy.: On Lantus. Insulin sliding scale. Accu-Cheks ACHS. #Hypertension: On amlodipine and losartan. Coreg added on. #Hyperlipidemia: On statin #Obesity: BMI is 38.5. Complicates acute care, expected recovery and prognosis. DVT prophylaxis: hold lovenox in light of positive FOBT Charges/Coding Visit Charges Inpatient E&M: 77435 Subs Hosp L2
--- NOTE | 2022-12-24 15:03 | CASEMGMT ---
KRIS sent updates to [facility] via [employer]. Marylin Douglas [employer]YNE
[2022-12-24 16:46] LABS: Bedside Glucose 155 mg/dL (74-106)
[2022-12-24] MEDS: Gabapentin 300 MG Capsule PO (17:07)
[2022-12-24] MEDS: Insulin Lispro 100 UNIT/ML INSULN.PEN 25 UNIT SC (17:08)
[2022-12-24] MEDS: Ezetimibe 10 MG Tablet PO (22:13)
[2022-12-24] MEDS: Atorvastatin Calcium 20 MG Tablet PO (22:13)
[2022-12-24] MEDS: amLODIPine 5 MG Tablet PO (22:13)
[2022-12-25] VITALS (7 sets, daily range): BP systolic 107–135; BP diastolic 50–63; PULSE 72–84; RESP 16–18; TEMP 36.1–36.9; O2SAT 92–98; BMI 37.0
[2022-12-25 00:35] LABS: Bedside Glucose 86 mg/dL (74-106)
[2022-12-25 06:13] LABS: Absolute Lymphocyte Count 1.36 X10^3/uL (0.83-4.51); Absolute Neutrophil Count 5.9 X10^3/uL (2.0-7.7); Basophil# 0.05 X10^3/uL; Basophil% 0.6 % (0-1); Eosinophil# 0.46 X10^3/uL; Eosinophils% 5.2 % (0-5); Hematocrit 27.7 % (37-47); Hemoglobin 8.2 g/dL (12.0-15.0); Lymphocyte # 1.36 X10^3/ul (0.83-4.51); Lymphocyte % 15.3 % (19-41); Mean Corp Hgb Conc 29.6 g/dL (32-36); Mean Corpuscular Hgb 27.1 pg (27.0-32.0); Mean Corpuscular Volume 91.4 fL (81-99); Mean Platelet Vol. 9.5 fl (6.2-12.0); Monocyte% 12.4 % (0-10); NRBC Flagged by Analyzer 0 % (0-5); Neutrophil # 5.86 X10^3/uL (2.7-7.7); Neutrophil % 65.9 % (47-70); Platelet Count 331 K/mm3 (150-450); RBC Distribution Width CV 14.6 % (11.6-14.6); RBC Distribution Width SD 49.3 fl (35.1-43.9); Red Blood Count 3.03 M/mm3 (4.2-5.4); White Blood Count 8.9 K/mm3 (4.4-11.0)
[2022-12-25 06:50] LABS: Vancomycin, Random Level 19.2 ug/mL (0.0-15.0)
[2022-12-25 06:56] LABS: Anion Gap 9 (5-15); BUN 95 mg/dL (7-18); BUN/Creat Ratio 30.1 RATIO (10-20); Calcium,Total 9.2 mg/dL (8.5-10.1); Chloride 107 mmol/L (98-107); Creatinine, Serum 3.16 mg/dL (0.55-1.02); EST Glomerular Filtration Rate 16 mL/min (>60); Est Glom Filt Rate - Afr Amer 19 mL/min (>60); Estimated Creatinine Clearance 13.04 ml/min; Glucose 64 mg/dL (74-106); Potassium 4.4 mmol/L (3.5-5.1); Sodium Level 137 mmol/L (136-145)
--- NOTE | 2022-12-25 07:14 | PCM.RX.CS ---
Consult Type of Consult: Follow-up Suspected Infection: Osteomyelitis Labs: Sodium 137 mmol/L (136-145) 12/25/22 05:35 Potassium 4.4 mmol/L (3.5-5.1) 12/25/22 05:35 Chloride 107 mmol/L (98-107) 12/25/22 05:35 Carbon Dioxide 21.0 mmol/L (21.0-32.0) 12/25/22 05:35 Anion Gap 9 (5-15) 12/25/22 05:35 BUN 95 mg/dL (7-18) H 12/25/22 05:35 Creatinine 3.16 mg/dL (0.55-1.02) H 12/25/22 05:35 Est GFR (MDRD) Af Amer 19 mL/min (>60) L 12/25/22 05:35 Est GFR (MDRD) Non-Af 16 mL/min (>60) L 12/25/22 05:35 BUN/Creatinine Ratio 30.1 RATIO (10-20) H 12/25/22 05:35 Glucose 64 mg/dL (74-106) L 12/25/22 05:35 Random Vancomycin 19.2 ug/mL (0.0-15.0) H 12/25/22 05:35 Microbiology: Microbiology 12/24/22 10:20 Stool Stool Occult Blood (EBONI) - Final Occult Blood Positive Goal Trough: 15-20 mcg/mL Pharmacy Plan for Drug Dosing: VANCOMYCIN LEVEL RECEIVED Current Vancomycin Dose: by trough Number of Doses Received: on hold Vancomycin Level: 19.2 Hours Since Last Dose: (random) Renal Function: sCr 3.16 Vancomycin Plan/Comments: No Vancomycin ordered for today Pending Level: Random Vancomycin level @ 0600 12/26/22 Pharmacy Service will continue to monitor and adjust dosing as required. Labs to be done on [date and time ordered]: Random Vancomycin level @ 0600 12/26/22
[2022-12-25] MEDS: Insulin Lispro 100 UNIT/ML INSULN.PEN 25 UNIT SC ×2 (08:15→16:32)
[2022-12-25] MEDS: Insulin NPH Human 100 UNITS/ML PEN 25 UNITS SC ×2 (08:15→16:34)
[2022-12-25 09:35] LABS: Bedside Glucose 103 mg/dL (74-106)
[2022-12-25] MEDS: Carvedilol 6.25 MG Tablet PO ×2 (09:38→16:40)
[2022-12-25] MEDS: Ferrous Sulfate 325 MG Tablet PO ×3 (09:38→16:40)
[2022-12-25] MEDS: Pantoprazole Sodium 20 MG Tablet PO (09:38)
[2022-12-25] MEDS: Multivitamin (Healthy Eyes) Capsule 1 CAP PO ×2 (09:38→21:22)
[2022-12-25] MEDS: Ascorbic Acid 500 MG Tablet 1000 MG PO ×2 (09:40→21:23)
[2022-12-25] MEDS: FINERENONE 10 MG TABLET PO (09:40)
[2022-12-25] MEDS: Cholecalciferol (VIT D3) 25 MCG TABLET (1,000 UNITS) 50 MCG PO (09:41)
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
[2022-12-25] MEDS: Acetaminophen 325 MG Tablet 650 MG PO (12:59)
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
[2022-12-25 13:21] LABS: Bedside Glucose 75 mg/dL (74-106)
--- NOTE | 2022-12-25 13:36 | PN_ITS ---
Subjective Subjective Patient seen and examined. She had no complaints and had an uneventful night. Cr has trended upwards today to 3.1. Review of systems is otherwise negative Objective Data Objective Data Vital Signs: Vital Signs Temp Pulse Resp BP Pulse Ox O2 Del Method O2 Flow Rate 97.7 F L 75 16 115/51 L 97 Nasal Cannula 2 12/25/22 08:16 12/25/22 08:16 12/25/22 08:16 12/25/22 08:16 12/25/22 08:16 12/25/22 08:16 12/25/22 08:16 Oxygen Flow Rate (L/min) 2 Oxygen Delivery Method Nasal Cannula Weight: 201 lb 0.985 oz Body Mass Index (BMI) 37.0 Intake & Output: Intake and Output for Last 24 Hours 12/23/22 12/24/22 12/25/22 23:59 23:59 23:59 Intake Total 824.5 / 824.5 1195.50 / 1195.50 500 / 500 Output Total 3750 / 3750 650 / 650 Balance -2925.5 / -2925.5 545.50 / 545.50 500 / 500 Lab / Micro Data Result Diagrams: 12/25/22 05:35 12/25/22 05:35 Labs: Laboratory Results - last 24 hr 12/24/22 16:28: POC Glucose 155 H 12/24/22 22:08: POC Glucose 86 12/25/22 05:35: WBC 8.9, RBC 3.03 L, Hgb 8.2 L, Hct 27.7 L, MCV 91.4, MCH 27.1, MCHC 29.6 L, RDW Std Deviation 49.3 H, RDW Coeff of Steven 14.6, Plt Count 331, MPV 9.5, Immature Gran % (Auto) 0.600, Neut % (Auto) 65.9, Lymph % (Auto) 15.3 L, [place] % (Auto) 12.4 H, Eos % (Auto) 5.2 H, Baso % (Auto) 0.6, Absolute Neuts (auto) 5.9, Absolute Lymphs (auto) 1.36, Nucleated RBC % 0 12/25/22 05:35: Sodium 137, Potassium 4.4, Chloride 107, Carbon Dioxide 21.0, Anion Gap 9, BUN 95 H, Creatinine 3.16 H, Estim Creat Clear Calc 13.04, Est GFR (MDRD) Af Amer 19 L, Est GFR (MDRD) Non-Af 16 L, BUN/Creatinine Ratio 30.1 H, Glucose 64 L, Calcium 9.2 12/25/22 05:35: Random Vancomycin 19.2 H 12/25/22 08:26: POC Glucose 103 12/25/22 12:53: POC Glucose 75 Micro: Microbiology 12/24/22 10:20 Stool Stool Occult Blood (EBONI) - Final Occult Blood Positive Physical Exam Const alert, oriented x3 and no apparent distress General Appearance: cooperative HEENT normocephalic, head/scalp atraumatic, moist oral mucous membranes and oropharynx normal Eyes PERRL and EOMs intact bilaterally Neck supple and no JVD Lymph Lymphatic: no lymphadenopathy noted and no lymphedema noted Resp Resp Narrative: mildly diminished breath sounds bibasally, no wheezes or crackles. on 2L of oxygen by nasal canula Cardio regular rate, regular rhythm, S1 normal heart sound, S2 normal heart sound and no murmurs GI normal to inspection, nondistended, normoactive bowel sounds, soft to palpation and non-tender Extremity normal capillary refill Extremity Narrative: right foot wrapped in bandage Skin General Skin Exam: no breakdown Neuro CN's II-XII intact bilaterally, no focal motor deficits, no sensory deficits noted and deep tendon reflexes 2+ bilaterally Motor Exam: strength 5/5 throughout Psych thought process normal Mood & Affect: flat affect Assessment & Plan Assessment/Plan (1) CHF (congestive heart failure): (2) Fluid overload: PLAN: Plan #Hypoxia due to acute heart failure, with reduced EF * being diuresed with IV lasix 40mg bid * in cumulative negative balance by nearly 3L. * 2D echo showed EF of 40-45% with normal normal RVSF and anteroapical and distal septal hypokinesia, with mild to moderate LV systolic dysfunction. * hold lasix due to Cr trending upwards * On beta-suresh. * Titrate oxygen to maintain saturation above 90%. * per cardiology, to follow up on outpatient basis for evaluation. * #Recent history of right foot osteomyelitis * Cultures during previous admission grew Staphylococcus and corynebacterium. On IV vancomycin and Zosyn. Continue on antibiotics for 6 weeks. * Has wound VAC in place. * Intact dressing to right lower extremity. * #BENJAMIN on CKD IV: * Cr is now up to 3.1. Likely aggravated by lasix. * will hold lasix. * trend Cr. Hold off on IVF in light of fluid overload. * If Cr doesnt improve, will consult nephrology #Anemia: * Iron is 25 with ferritin of 76 and iron saturation of only 8.1. * Hb today is 8.2 * stool for occult blood is positive. * gastorenterology consulted * hold aspirin and lovenox #Type 2 diabetes mellitus with neuropathy.: On Lantus. Insulin sliding scale. Accu-Cheks ACHS. #Hypertension: On amlodipine and losartan. Coreg added on. #Hyperlipidemia: On statin #Obesity: BMI is 38.5. Complicates acute care, expected recovery and prognosis. DVT prophylaxis: hold lovenox in light of positive FOBT. SCDs Total time spent on evaluation and management of patient, reviewing chart and specialist notes, discussing plan with patient, discussion with nursing and a ncillary staff as well as documentation: 45 mins Charges/Coding Visit Charges Inpatient E&M: 09229 Subs Hosp L3
--- NOTE | 2022-12-25 15:54 | CASEMGMT ---
Blade from [facility] came to see patient. Blade also checked in with KRIS. KRIS asked Blade to start the pre-cert. Marylin MICHELE
[2022-12-25] MEDS: Gabapentin 300 MG Capsule PO (16:38)
[2022-12-25 16:55] LABS: Bedside Glucose 89 mg/dL (74-106)
[2022-12-25] MEDS: Menthol/Lanolin/Calamine/Znox 113 GM Tube 1 APPLIC TOPICAL (21:21)
[2022-12-25] MEDS: amLODIPine 5 MG Tablet PO (21:22)
[2022-12-25] MEDS: Ezetimibe 10 MG Tablet PO (21:23)
[2022-12-25] MEDS: Atorvastatin Calcium 20 MG Tablet PO (21:23)
[2022-12-26] VITALS (12 sets, daily range): BP systolic 110–138; BP diastolic 53–71; PULSE 67–80; RESP 14–18; TEMP 36.2–36.8; O2SAT 92–98; BMI 37.7
[2022-12-26 06:27] LABS: Absolute Lymphocyte Count 0.97 X10^3/uL (0.83-4.51); Absolute Neutrophil Count 7.8 X10^3/uL (2.0-7.7); Basophil# 0.05 X10^3/uL; Basophil% 0.5 % (0-1); Eosinophil# 0.49 X10^3/uL; Eosinophils% 4.7 % (0-5); Hemoglobin 8.3 g/dL (12.0-15.0); Lymphocyte # 0.97 X10^3/ul (0.83-4.51); Lymphocyte % 9.4 % (19-41); Mean Corp Hgb Conc 29.6 g/dL (32-36); Mean Corpuscular Hgb 26.9 pg (27.0-32.0); Mean Corpuscular Volume 90.9 fL (81-99); Mean Platelet Vol. 9.8 fl (6.2-12.0); Monocyte% 9.7 % (0-10); NRBC Flagged by Analyzer 0 % (0-5); Neutrophil # 7.77 X10^3/uL (2.7-7.7); Neutrophil % 75.1 % (47-70); Platelet Count 341 K/mm3 (150-450); RBC Distribution Width CV 14.6 % (11.6-14.6); RBC Distribution Width SD 48.9 fl (35.1-43.9); Red Blood Count 3.08 M/mm3 (4.2-5.4); White Blood Count 10.3 K/mm3 (4.4-11.0)
[2022-12-26 07:04] LABS: Vancomycin, Random Level 15.4 ug/mL (0.0-15.0)
[2022-12-26 07:25] LABS: Anion Gap 8 (5-15); BUN 106 mg/dL (7-18); BUN/Creat Ratio 33.1 RATIO (10-20); Chloride 108 mmol/L (98-107); EST Glomerular Filtration Rate 15 mL/min (>60); Est Glom Filt Rate - Afr Amer 19 mL/min (>60); Estimated Creatinine Clearance 12.87 ml/min; Glucose 81 mg/dL (74-106); Potassium 4.3 mmol/L (3.5-5.1); Sodium Level 137 mmol/L (136-145)
--- NOTE | 2022-12-26 07:49 | PCM.RX.CS ---
Consult Pharmacy has been consulted to manage selected antiobiotic: Vancomycin Type of Consult: Follow-up Labs: Sodium 137 mmol/L (136-145) 12/26/22 05:48 Potassium 4.3 mmol/L (3.5-5.1) 12/26/22 05:48 Chloride 108 mmol/L (98-107) H 12/26/22 05:48 Carbon Dioxide 21.0 mmol/L (21.0-32.0) 12/26/22 05:48 Anion Gap 8 (5-15) 12/26/22 05:48 BUN 106 mg/dL (7-18) H* 12/26/22 05:48 Creatinine 3.20 mg/dL (0.55-1.02) H 12/26/22 05:48 Est GFR (MDRD) Af Amer 19 mL/min (>60) L 12/26/22 05:48 Est GFR (MDRD) Non-Af 15 mL/min (>60) L 12/26/22 05:48 BUN/Creatinine Ratio 33.1 RATIO (10-20) H 12/26/22 05:48 Glucose 81 mg/dL (74-106) 12/26/22 05:48 Random Vancomycin 15.4 ug/mL (0.0-15.0) H 12/26/22 05:48 Microbiology: Microbiology 12/24/22 10:20 Stool Stool Occult Blood (EBONI) - Final Occult Blood Positive Weight used for dosin kg Estimated Creatinine Clearance: < 20 Goal Trough: 15-20 mcg/mL Pharmacy Plan for Drug Dosing: Vancomycin level back in goal range. Last reported dose from [facility] was 4 days ago. SCr is just now leveled off. Patient likely fully at steady-state. Considering slight change in level since yesterday and no improvement in SCr, will dose as if she is on dialysis and give 750mg x1 and re-check random level tomorrow morning. Pharmacy Service will continue to monitor and adjust dosing as required. Follow-Up Labs: Trough Vancomycin - Random 12/27 @ 0600
[2022-12-26] MEDS: Ascorbic Acid 500 MG Tablet 1000 MG PO ×2 (08:12→21:50)
[2022-12-26] MEDS: Cholecalciferol (VIT D3) 25 MCG TABLET (1,000 UNITS) 50 MCG PO (08:12)
[2022-12-26] MEDS: Ferrous Sulfate 325 MG Tablet PO ×2 (08:14→17:40)
[2022-12-26] MEDS: Multivitamin (Healthy Eyes) Capsule 1 CAP PO ×2 (08:14→21:49)
[2022-12-26] MEDS: Loratadine 10 MG Tablet PO (08:14)
[2022-12-26] MEDS: Pantoprazole Sodium 20 MG Tablet PO (08:14)
[2022-12-26] MEDS: Carvedilol 6.25 MG Tablet PO ×2 (08:15→17:40)
[2022-12-26] MEDS: FINERENONE 10 MG TABLET PO (08:15)
[2022-12-26] MEDS: Menthol/Lanolin/Calamine/Znox 113 GM Tube 1 APPLIC TOPICAL ×2 (08:21→22:05)
[2022-12-26 09:05] LABS: Bedside Glucose 110 mg/dL (74-106)
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
--- NOTE | 2022-12-26 10:38 | CASEMGMT ---
KRIS sent updates to [facility], [place] per insurance request. 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
--- NOTE | 2022-12-26 11:05 | PCM.PROGNOTE ---
Subjective Subjective Patient seen and examined. She had no complaints and says she felt the same. She denied any shortness of breath, palpitations, dizziness, chest pain, nausea vomiting or any other symptoms. Review of systems as above otherwise negative Objective Data Objective Data Vital Signs: Vital Signs Temp Pulse Resp BP Pulse Ox O2 Del Method O2 Flow Rate 97.7 F L 73 16 131/71 H 98 Room Air 2 12/26/22 08:02 12/26/22 08:02 12/26/22 08:02 12/26/22 08:02 12/26/22 08:02 12/26/22 08:02 12/25/22 12:00 Oxygen Flow Rate (L/min) 2 Oxygen Delivery Method Room Air Weight: 204 lb 12.951 oz Body Mass Index (BMI) 37.7 Intake & Output: Intake and Output for Last 24 Hours 12/24/22 12/25/22 12/26/22 23:59 23:59 23:59 Intake Total 1195.50 / 1195.50 1050 / 1250 300 / 300 Output Total 650 / 650 200 / 200 Balance 545.50 / 545.50 850 / 1050 300 / 300 Lab / Micro Data Result Diagrams: 12/26/22 05:48 12/26/22 05:48 Labs: Laboratory Results - last 24 hr 12/25/22 12:53: POC Glucose 75 12/25/22 16:23: POC Glucose 89 12/26/22 05:48: WBC 10.3, RBC 3.08 L, Hgb 8.3 L, Hct 28.0 L, MCV 90.9, MCH 26.9 L, MCHC 29.6 L, RDW Std Deviation 48.9 H, RDW Coeff of Steven 14.6, Plt Count 341, MPV 9.8, Immature Gran % (Auto) 0.600, Neut % (Auto) 75.1 H, Lymph % (Auto) 9.4 L, [place] % (Auto) 9.7, Eos % (Auto) 4.7, Baso % (Auto) 0.5, Absolute Neuts (auto) 7.8 H, Absolute Lymphs (auto) 0.97, Nucleated RBC % 0 12/26/22 05:48: Sodium 137, Potassium 4.3, Chloride 108 H, Carbon Dioxide 21.0, Anion Gap 8, BUN 106 H*, Creatinine 3.20 H, Estim Creat Clear Calc 12.87, Est GFR (MDRD) Af Amer 19 L, Est GFR (MDRD) Non-Af 15 L, BUN/Creatinine Ratio 33.1 H, Glucose 81, Calcium 9.0 12/26/22 05:48: Random Vancomycin 15.4 H 12/26/22 08:06: POC Glucose 110 H Micro: Microbiology 12/24/22 10:20 Stool Stool Occult Blood (EBONI) - Final Occult Blood Positive Physical Exam Const alert, oriented x3 and no apparent distress General Appearance: cooperative HEENT normocephalic, head/scalp atraumatic, moist oral mucous membranes and oropharynx normal Eyes PERRL and EOMs intact bilaterally Neck supple and no JVD Lymph Lymphatic: no lymphadenopathy noted and no lymphedema noted Resp Resp Narrative: mildly diminished breath sounds bibasally, no wheezes or crackles. on room air Cardio regular rate, regular rhythm, S1 normal heart sound, S2 normal heart sound and no murmurs GI normal to inspection, nondistended, normoactive bowel sounds, soft to palpation and non-tender Extremity normal capillary refill Extremity Narrative: right foot wrapped in bandage Skin General Skin Exam: no breakdown Neuro CN's II-XII intact bilaterally, no focal motor deficits, no sensory deficits noted and deep tendon reflexes 2+ bilaterally Motor Exam: strength 5/5 throughout Psych thought process normal Mood & Affect: flat affect Assessment & Plan Assessment/Plan (1) CHF (congestive heart failure): (2) Fluid overload: PLAN: Plan #Hypoxia due to acute heart failure, with reduced EF lasix held due to Benjamin on CKD now on room air 2D echo showed EF of 40-45% with normal normal RVSF and anteroapical and distal septal hypokinesia, with mild to moderate LV systolic dysfunction. hold lasix due to Cr trending upwards On beta-suresh. Titrate oxygen to maintain saturation above 90%. per cardiology, to follow up on outpatient basis for evaluation. #Recent history of right foot osteomyelitis Cultures during previous admission grew Staphylococcus and corynebacterium. On IV vancomycin and Zosyn. Continue on antibiotics for 6 weeks-stop date is 01/14/2023 Has wound VAC in place. Intact dressing to right lower extremity. ID consulted to help with antibiotics in light of worsening kidney function #BENJAMIN on CKD IV: Cr is now up to 3.2. Likely aggravated by lasix. lasix held nephrology consulted as Cr is not improving. Likely due to Lasix and aggravated by patient being on vancomycin as well. #Anemia: Iron is 25 with ferritin of 76 and iron saturation of only 8.1. Hb today is 8.3 Her BUN has trended upwards and BUN over creatinine ratio is more than 2. I therefore suspect that she might be having an upper GI bleed as well. Stool for occult blood is positive. Aspirin and Lovenox on hold. For EGD today. On IV PPI 40 mg twice daily. #Type 2 diabetes mellitus with neuropathy.: On Lantus. Insulin sliding scale. Accu-Cheks ACHS. #Hypertension: On amlodipine and losartan. Coreg added on. #Hyperlipidemia: On statin #Obesity: BMI is 38.5. Complicates acute care, expected recovery and prognosis. DVT prophylaxis: hold lovenox in light of positive FOBT. SCDs Total time spent on evaluation and management of patient, reviewing chart and specialist notes, discussing plan with patient and her sister who was on the phone during my review, discussion with nursing and ancillary staff as well as documentation: 47 mins Charges/Coding Visit Charges Inpatient E&M: 24594 Subs Hosp L3
[2022-12-26] MEDS: Lactated Ringers 1,000 ML 15 ML IV (11:17)
--- NOTE | 2022-12-26 12:22 | OP.EGD_ITS ---
Patient Name: Ragini Obando Procedure Date: 12/26/2022 11:43 AM Date of : 1955 Age: 67 Procedure: Upper GI endoscopy Indications: Iron deficiency anemia Providers: Arjun Mcintosh DO Medicines: Monitored Anesthesia Care Patient Profile: This is a 67 year old female. Refer to note in patient chart for documentation of history and physical. Patient has symptoms of acute epigastric abdominal pain and acute nausea. Complications: No immediate complications. Procedure: Pre-Anesthesia Assessment: - Prior to the procedure, a History and Physical was performed, and patient medications and allergies were reviewed. The patient is competent. The risks and benefits of the procedure and the sedation options and risks were discussed with the patient. All questions were answered and informed consent was obtained. Patient identification and proposed procedure were verified by the physician in the pre-procedure area. Mental Status Examination: alert and oriented. Airway Examination: normal oropharyngeal airway and neck mobility. Respiratory Examination: clear to auscultation. CV Examination: normal. Prophylactic Antibiotics: The patient does not require prophylactic antibiotics. Prior Anticoagulants: The patient has taken no previous anticoagulant or antiplatelet agents. ASA Grade Assessment: III - A patient with severe systemic disease. After reviewing the risks and benefits, the patient was deemed in satisfactory condition to undergo the procedure. The anesthesia plan was to use monitored anesthesia care (MAC). Immediately prior to administration of medications, the patient was re-assessed for adequacy to receive sedatives. The heart rate, respiratory rate, oxygen saturations, blood pressure, adequacy of pulmonary ventilation, and response to care were monitored throughout the procedure. The physical status of the patient was re-assessed after the procedure. After obtaining informed consent, the endoscope was passed under direct vision. Throughout the procedure, the patient's blood pressure, pulse, and oxygen saturations were monitored continuously. The gastroscope was introduced through the mouth, and advanced to the second part of duodenum. The upper GI endoscopy was accomplished without difficulty. The patient tolerated the procedure well. Scope In: 12:03:14 PM Scope Out: 12:15:27 PM Total Procedure Duration Time 0 hours 12 minutes 13 seconds Findings: A 5 mm bleeding Roxanne-Kinsey tear with stigmata of recent bleeding was found. Coagulation for hemostasis using heater probe was successful. Estimated blood loss was minimal. A hiatal hernia was present. One oozing cratered gastric ulcer with a visible vessel was found in the prepyloric region of the stomach. The lesion was 6 mm in largest dimension. Area was successfully injected with 5 mL of a 1:10,000 solution of epinephrine for drug delivery. Coagulation for hemostasis using heater probe was successful. Estimated blood loss was minimal. Localized mild inflammation characterized by congestion (edema) and erosions was found in the gastric body. Biopsies were taken with a cold forceps for Helicobacter pylori testing. Verification of patient identification for the specimen was done. Estimated blood loss was minimal. A benign-appearing, intrinsic severe stenosis was found at the pylorus. This was non-traversed. A TTS dilator was passed through the scope. Dilation with an 18 mm pyloric balloon dilator was performed. The dilation site was examined following endoscope reinsertion and showed complete resolution of luminal narrowing. Estimated blood loss was minimal. The second portion of the duodenum was normal. Impression: - Roxanne-Kinsey tear. Treated with a heater probe. - Hiatal hernia. - Oozing gastric ulcer with a visible vessel. Injected. Treated with a heater probe. - Chronic gastritis. Biopsied. - Gastric stenosis was found at the pylorus. Dilated. - Normal second portion of the duodenum. Recommendation: - Return patient to [facility] for ongoing care. - Full liquid diet today. - Use Protonix (pantoprazole) 40 mg PO BID for 8 weeks. - Use sucralfate tablets 1 gram PO QID for 4 weeks. - Continue present medications. Procedure Code(s): --- Professional --- 67475, 59, Esophagogastroduodenoscopy, flexible, transoral; with control of bleeding, any method 63875, Esophagogastroduodenoscopy, flexible, transoral; with dilation of gastric/duodenal stricture(s) (eg, balloon, bougie) 81788, 59, Esophagogastroduodenoscopy, flexible, transoral; with directed submucosal injection(s), any substance 26219, 59, Esophagogastroduodenoscopy, flexible, transoral; with biopsy, single or multiple CPT copyright 2017 [employer]. All rights reserved. The codes documented in this report are preliminary and upon timber supervisor review may be revised to meet current compliance requirements. Arjnu Mcintosh DO 12/26/2022 12:22:14 PM This report has been signed electronically. Number of Addenda: 0 Note Initiated On: 12/26/2022 11:43 AM
--- NOTE | 2022-12-26 12:23 | OP.CCLET_ITS ---
12/26/2022 Hever Otoole [address] [facility] [address] Re : Upper GI endoscopy procedure for Ragini Obando Dear Dr. Otoole This procedure was performed on Monday, December 26, 2022. My impressions and recommendations are as follows: Impressions : - Roxanne-Kinsey tear. Treated with a heater probe. - Hiatal hernia. - Oozing gastric ulcer with a visible vessel. Injected. Treated with a heater probe. - Chronic gastritis. Biopsied. - Gastric stenosis was found at the pylorus. Dilated. - Normal second portion of the duodenum. Recommendations : - Return patient to [facility] for ongoing care. - Full liquid diet today. - Use Protonix (pantoprazole) 40 mg PO BID for 8 weeks. - Use sucralfate tablets 1 gram PO QID for 4 weeks. - Continue present medications. My findings are described in the full procedure note, which is enclosed. If I can be of further assistance, please feel free to contact me at . Sincerely, Arjun Mcintosh, 12/26/2022 12:22:14 PM This report has been signed electronically.
[2022-12-26 13:15] LABS: Bedside Glucose 59 mg/dL (74-106)
[2022-12-26 13:15] LABS: Bedside Glucose 51 mg/dL (74-106)
[2022-12-26 13:30] LABS: Bedside Glucose 82 mg/dL (74-106)
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
[2022-12-26] MEDS: Sucralfate 1 GM Tablet PO (16:40)
[2022-12-26] MEDS: Insulin Lispro 100 UNIT/ML INSULN.PEN 25 UNIT SC (16:41)
[2022-12-26] MEDS: Insulin Lispro 100 UNIT/ML INSULN.PEN SC (16:41)
[2022-12-26] MEDS: Insulin NPH Human 100 UNITS/ML PEN 25 UNITS SC (16:42)
[2022-12-26 17:05] LABS: Bedside Glucose 152 mg/dL (74-106)
[2022-12-26] MEDS: Gabapentin 300 MG Capsule PO (17:39)
[2022-12-26 17:40] LABS: Bacteria 0 SEEN /hpf (None Seen); Mucous, Urine 0 SEEN /hpf (<or=2+); Red Blood Cells-Urine 0 SEEN /hpf (0-5)
[2022-12-26 17:44] LABS: Color, Urine Yellow (Yellow); Glucose, Dipstick Normal (Normal); Ketone-Dipstick Negative (Negative); Leukocyte Esterase-Dipstick 500 /ul (Negative); Nitrite-Dipstick Negative (Negative); Occult Blood-Urine Negative /ul (Negative); Protein-Dipstick 30 mg/dl (Negative); Urine Bilirubin Dipstick Negative (Negative); Urine Clarity Clear (Clear); Urine Urobilinogen Normal (Normal)
[2022-12-26 18:27] LABS: Squamous Epithelial Cells - UA 0-5 SEEN /hpf (5-10); White Blood Cells 0-5 SEEN /hpf (0-5)
[2022-12-26 21:21] LABS: Bedside Glucose 124 mg/dL (74-106)
[2022-12-26] MEDS: amLODIPine 5 MG Tablet PO (21:49)
[2022-12-26] MEDS: Atorvastatin Calcium 20 MG Tablet PO (21:49)
[2022-12-26] MEDS: Ezetimibe 10 MG Tablet PO (21:50)
[2022-12-26] MEDS: 0.9% Saline Lock 10 ML Syringe IV (22:04)
[2022-12-27] MEDS: 0.9% Saline Lock 10 ML Syringe IV ×5 (03:39→23:05)
[2022-12-27 03:43] VITALS: BP 118/57; PULSE 73; RESP 18; TEMP 37.2; O2SAT 94
[2022-12-27 06:00] VITALS: BMI 37.6
[2022-12-27] MEDS: Sucralfate 1 GM Tablet PO ×3 (06:12→16:13)
[2022-12-27 06:17] LABS: Absolute Lymphocyte Count 1.33 X10^3/uL (0.83-4.51); Absolute Neutrophil Count 5.8 X10^3/uL (2.0-7.7); Basophil# 0.04 X10^3/uL; Basophil% 0.5 % (0-1); Eosinophil# 0.44 X10^3/uL; Eosinophils% 5.2 % (0-5); Hematocrit 26.5 % (37-47); Hemoglobin 8.3 g/dL (12.0-15.0); Lymphocyte # 1.33 X10^3/ul (0.83-4.51); Lymphocyte % 15.7 % (19-41); Mean Corp Hgb Conc 31.3 g/dL (32-36); Mean Corpuscular Hgb 27.6 pg (27.0-32.0); Mean Platelet Vol. 9.5 fl (6.2-12.0); Monocyte# 0.82 X10^3/uL; Monocyte% 9.7 % (0-10); NRBC Flagged by Analyzer 0 % (0-5); Neutrophil # 5.79 X10^3/uL (2.7-7.7); Neutrophil % 68.4 % (47-70); Platelet Count 319 K/mm3 (150-450); RBC Distribution Width CV 14.5 % (11.6-14.6); RBC Distribution Width SD 46.8 fl (35.1-43.9); Red Blood Count 3.01 M/mm3 (4.2-5.4); White Blood Count 8.5 K/mm3 (4.4-11.0)
[2022-12-27 07:06] LABS: ALB/GLOB Ratio 0.5 RATIO (0.9-2.4); AST(SGOT) 19 U/L (15-37); Alanine Aminotransfer ALT/SGPT 22 U/L (13-56); Albumin, Serum 2.1 g/dL (3.2-5.0); Alkaline Phosphatase 212 U/L (45-117); Anion Gap 6 (5-15); BUN 94 mg/dL (7-18); BUN/Creat Ratio 34.9 RATIO (10-20); Calcium,Total 9.3 mg/dL (8.5-10.1); Chloride 109 mmol/L (98-107); Creatinine, Serum 2.69 mg/dL (0.55-1.02); EST Glomerular Filtration Rate 19 mL/min (>60); Est Glom Filt Rate - Afr Amer 23 mL/min (>60); Estimated Creatinine Clearance 15.31 ml/min; Globulin 4.2 g/dL (2.2-4.2); Glucose 79 mg/dL (74-106); Potassium 4.8 mmol/L (3.5-5.1); Protein, Total 6.3 g/dL (6.4-8.2); Sodium Level 138 mmol/L (136-145)
[2022-12-27 07:56] VITALS: O2SAT 94
[2022-12-27 09:00] VITALS: BP 128/67; PULSE 76; RESP 16; TEMP 36.7; O2SAT 93
[2022-12-27] MEDS: Carvedilol 6.25 MG Tablet PO ×2 (09:07→16:13)
[2022-12-27] MEDS: Ferrous Sulfate 325 MG Tablet PO ×3 (09:07→16:13)
[2022-12-27] MEDS: Multivitamin (Healthy Eyes) Capsule 1 CAP PO ×2 (09:08→22:07)
[2022-12-27] MEDS: Ascorbic Acid 500 MG Tablet 1000 MG PO ×2 (09:08→22:07)
[2022-12-27] MEDS: FINERENONE 10 MG TABLET PO (09:08)
[2022-12-27] MEDS: Cholecalciferol (VIT D3) 25 MCG TABLET (1,000 UNITS) 50 MCG PO (09:08)
[2022-12-27 11:10] LABS: Bedside Glucose 75 mg/dL (74-106)
--- NOTE | 2022-12-27 11:59 | PN_ITS ---
Subjective Subjective Patient seen and examined. She has no complaints today. Review of systems otherwise negative. She had EGD yesterday which showed an oozing gastric ulcer and Roxanne-Kinsey tears. Creatinine is also trending downwards. She has remained hemodynamically stable. Objective Data Objective Data Vital Signs: Vital Signs Temp Pulse Resp BP Pulse Ox O2 Del Method O2 Flow Rate 98.1 F 76 16 128/67 H 93 Room Air 2 12/27/22 09:00 12/27/22 09:00 12/27/22 09:00 12/27/22 09:00 12/27/22 09:00 12/27/22 09:19 12/27/22 09:00 Oxygen Flow Rate (L/min) 2 Oxygen Delivery Method Room Air Weight: 204 lb 9.423 oz Body Mass Index (BMI) 37.6 Intake & Output: Intake and Output for Last 24 Hours 12/25/22 12/26/22 12/27/22 23:59 23:59 23:59 Intake Total 1050 / 1250 1138.75 / 1438.75 510 / 510 Output Total 200 / 200 Balance 850 / 1050 1138.75 / 1438.75 510 / 510 Lab / Micro Data Result Diagrams: 12/27/22 05:56 12/27/22 05:56 Labs: Laboratory Results - last 24 hr 12/26/22 04:22: POC Glucose 51 L 12/26/22 04:32: POC Glucose 59 L 12/26/22 13:08: POC Glucose 82 12/26/22 16:36: POC Glucose 152 H 12/26/22 17:30: Urine Color Yellow, Urine Clarity Clear, Urine pH 6.0, Ur Specific [place] 1.010, Urine Protein 30 H, Urine Glucose (UA) Normal, Urine Ketones Negative, Urine Occult Blood Negative, Urine Nitrite Negative, Urine Bilirubin Negative, Urine Urobilinogen Normal, Ur Leukocyte Esterase 500 H, Urine RBC 0 SEEN, Urine WBC 0-5 SEEN, Ur Squamous Epith Cells 0-5 SEEN, Urine Bacteria 0 SEEN, Urine Mucus 0 SEEN 12/26/22 20:46: POC Glucose 124 H 12/27/22 05:56: WBC 8.5, RBC 3.01 L, Hgb 8.3 L, Hct 26.5 L, MCV 88.0, MCH 27.6, MCHC 31.3 L D, RDW Std Deviation 46.8 H, RDW Coeff of Steven 14.5, Plt Count 319, MPV 9.5, Immature Gran % (Auto) 0.500, Neut % (Auto) 68.4, Lymph % (Auto) 15.7 L , [place] % (Auto) 9.7, Eos % (Auto) 5.2 H, Baso % (Auto) 0.5, Absolute Neuts (a uto) 5.8, Absolute Lymphs (auto) 1.33, Nucleated RBC % 0 12/27/22 05:56: Sodium 138, Potassium 4.8, Chloride 109 H, Carbon Dioxide 23.0, Anion Gap 6, BUN 94 H, Creatinine 2.69 H, Estim Creat Clear Calc 15.31, Est GFR (MDRD) Af Amer 23 L, Est GFR (MDRD) Non-Af 19 L, BUN/Creatinine Ratio 34.9 H, Glucose 79, Calcium 9.3, Total Bilirubin 0.20, AST 19, ALT 22, Alkaline Phosphatase 212 H, Total Protein 6.3 L, Albumin 2.1 L, Globulin 4.2, Albumin/Globulin Ratio 0.5 L 12/27/22 10:38: POC Glucose 75 Micro: Microbiology 12/24/22 10:20 Stool Stool Occult Blood (EBONI) - Final Occult Blood Positive Physical Exam Const alert, oriented x3 and no apparent distress Constitutional Narrative: lethargic General Appearance: cooperative HEENT normocephalic, head/scalp atraumatic, moist oral mucous membranes and oropharynx normal Eyes PERRL and EOMs intact bilaterally Neck no lymphadenopathy, supple and no JVD Lymph Lymphatic: no lymphadenopathy noted and no lymphedema noted Resp Resp Narrative: mildly diminished breath sounds bibasally, no wheezes or crackles. on room air Cardio regular rate, regular rhythm, S1 normal heart sound, S2 normal heart sound and no murmurs GI normal to inspection, nondistended, normoactive bowel sounds, soft to palpation and non-tender Extremity normal capillary refill Extremity Narrative: right foot wrapped in bandage Skin General Skin Exam: no breakdown Neuro CN's II-XII intact bilaterally, no focal motor deficits, no sensory deficits noted and deep tendon reflexes 2+ bilaterally Motor Exam: strength 5/5 throughout Psych thought process normal Mood & Affect: flat affect Assessment & Plan Assessment/Plan (1) CHF (congestive heart failure): (2) Fluid overload: PLAN: Plan #Hypoxia due to acute heart failure, with reduced EF * resolved. Now on room air * lasix held due to Benjamin on CKD * 2D echo showed EF of 40-45% with normal normal RVSF and anteroapical and distal septal hypokinesia, with mild to moderate LV systolic dysfunction. * On beta-suresh. * Titrate oxygen to maintain saturation above 90%. * per cardiology, to follow up on outpatient basis for evaluation. * #Recent history of right foot osteomyelitis * Cultures during previous admission grew Staphylococcus and corynebacterium. Was discharged on IV vancomycin and Zosyn. Continue on antibiotics for 6 weeks-stop date is 01/14/2023 * Has wound VAC in place. * Intact dressing to right lower extremity. * kidney function improving. * ID consulted to help with antibiotics in light of worsening kidney function; per ID, antibiotics narrowed down to IV ceftriaxone with stop date of 01/14/2023. * #BENJAMIN on CKD IV: * Creatinine is down to 2.69 today from 3.2 yesterday. * lasix remains on hold * nephrology on board * Likely due to Lasix and aggravated by patient being on vancomycin as well. #Anemia: * Iron is 25 with ferritin of 76 and iron saturation of only 8.1. * Hb is still 8.3 today * Stool for occult blood was positive. Had EGD yesterday which showed Roxanne- Kinsey tear and a bleeding gastric ulcer which was treated with a heater probe * on IV PPI 40mg bid * aspirin and lovenox remain on hold #Type 2 diabetes mellitus with neuropathy.: On Lantus. Insulin sliding scale. Accu-Cheks ACHS. #Hypertension: On amlodipine and losartan. Coreg added on. #Hyperlipidemia: On statin #Obesity: BMI is 38.5. Complicates acute care, expected recovery and prognosis. DVT prophylaxis: hold lovenox in light of positive FOBT. SCDs Total time spent on evaluation and management of patient, reviewing chart and specialist notes, discussing plan with patient, discussion with nursing and ancillary staff as well as documentation: 40 mins Charges/Coding Visit Charges Inpatient E&M: 84160 Subs Hosp L2
[2022-12-27 13:11] LABS: Bedside Glucose 75 mg/dL (74-106)
--- NOTE | 2022-12-27 14:06 | PCM.PN.CARD ---
Subjective Subjective Seen and examined today at bedside Sitting out in a chair shortness of breath improving gradually as well as lower extremity swelling. Objective Data Vital Signs: Vital Signs Temp Pulse Resp BP Pulse Ox O2 Del Method O2 Flow Rate 98.1 F 76 16 128/67 H 93 Room Air 2 12/27/22 09:00 12/27/22 09:00 12/27/22 09:00 12/27/22 09:00 12/27/22 09:00 12/27/22 09:19 12/27/22 09:00 Oxygen Flow Rate (L/min) 2 Oxygen Delivery Method Room Air Weight: 204 lb 9.423 oz Body Mass Index (BMI) 37.6 Intake & Output: Intake and Output for Last 24 Hours 12/25/22 12/26/22 12/27/22 23:59 23:59 23:59 Intake Total 1050 / 1250 1138.75 / 1438.75 510 / 510 Output Total 200 / 200 Balance 850 / 1050 1138.75 / 1438.75 510 / 510 Lab / Micro Data Result Diagrams: 12/27/22 05:56 12/27/22 05:56 Labs: Laboratory Results - last 24 hr 12/26/22 16:36: POC Glucose 152 H 12/26/22 17:30: Urine Color Yellow, Urine Clarity Clear, Urine pH 6.0, Ur Specific [place] 1.010, Urine Protein 30 H, Urine Glucose (UA) Normal, Urine Ketones Negative, Urine Occult Blood Negative, Urine Nitrite Negative, Urine Bilirubin Negative, Urine Urobilinogen Normal, Ur Leukocyte Esterase 500 H, Urine RBC 0 SEEN, Urine WBC 0-5 SEEN, Ur Squamous Epith Cells 0-5 SEEN, Urine Bacteria 0 SEEN, Urine Mucus 0 SEEN 12/26/22 20:46: POC Glucose 124 H 12/27/22 05:56: WBC 8.5, RBC 3.01 L, Hgb 8.3 L, Hct 26.5 L, MCV 88.0, MCH 27.6, MCHC 31.3 L D, RDW Std Deviation 46.8 H, RDW Coeff of Steven 14.5, Plt Count 319, MPV 9.5, Immature Gran % (Auto) 0.500, Neut % (Auto) 68.4, Lymph % (Auto) 15.7 L, [place] % (Auto) 9.7, Eos % (Auto) 5.2 H, Baso % (Auto) 0.5, Absolute Neuts (auto) 5.8, Absolute Lymphs (auto) 1.33, Nucleated RBC % 0 12/27/22 05:56: Sodium 138, Potassium 4.8, Chloride 109 H, Carbon Dioxide 23.0, Anion Gap 6, BUN 94 H, Creatinine 2.69 H, Estim Creat Clear Calc 15.31, Est GFR (MDRD) Af Amer 23 L, Est GFR (MDRD) Non-Af 19 L, BUN/Creatinine Ratio 34.9 H, Glucose 79, Calcium 9.3, Total Bilirubin 0.20, AST 19, ALT 22, Alkaline Phosphatase 212 H, Total Protein 6.3 L, Albumin 2.1 L, Globulin 4.2, Albumin/Globulin Ratio 0.5 L 12/27/22 10:38: POC Glucose 75 12/27/22 12:50: POC Glucose 75 Cardiology Labs/Tests 12/26/22 17:30: Urine Color Yellow, Urine Clarity Clear, Urine pH 6.0, Ur Specific [place] 1.010, Urine Protein 30 H, Urine Glucose (UA) Normal, Urine Ketones Negative, Urine Occult Blood Negative, Urine Nitrite Negative, Urine Bilirubin Negative, Urine Urobilinogen Normal, Ur Leukocyte Esterase 500 H, Urine RBC 0 SEEN, Urine WBC 0-5 SEEN 12/27/22 05:56: WBC 8.5, RBC 3.01 L, Hgb 8.3 L, Hct 26.5 L, MCV 88.0, MCH 27.6, MCHC 31.3 L D, Plt Count 319, MPV 9.5, Immature Gran % (Auto) 0.500, Neut % (Auto) 68.4, Lymph % (Auto) 15.7 L, [place] % (Auto) 9.7, Eos % (Auto) 5.2 H, Baso % (Auto) 0.5, Absolute Neuts (auto) 5.8, Nucleated RBC % 0 12/27/22 05:56: Sodium 138, Potassium 4.8, Chloride 109 H, Carbon Dioxide 23.0, Anion Gap 6, BUN 94 H, Creatinine 2.69 H, Est GFR (MDRD) Af Amer 23 L, Est GFR (MDRD) Non-Af 19 L, BUN/Creatinine Ratio 34.9 H, Glucose 79, Calcium 9.3, Total Bilirubin 0.20 Rhythm: EKG: ECHO: Stress Test: Cardiac Cath: PCI: CT Surgery: Holter monitor: EPS: PPM: CXR: Chest CT Scan: Physical Exam Cardio Cardio Narrative: Review of ekg monitor tech showed normal sinus Cardiovascular Stephen S1-S2 regular Chest exam mildly diminished air entry bilateral Examination lower extremity +1?+2 lower extremity edema. Assessment & Plan Assessment/Plan (1) Type 2 diabetes mellitus with peripheral neuropathy: (2) Diabetic foot ulcer associated with type 2 diabetes mellitus, with fat layer exposed: QUALIFIERS: Diabetic foot ulcer location: midfoot Laterality: unspecified laterality Qualified Code(s): E11.621 - Type 2 diabetes mellitus with foot ulcer; L97.402 - Non-pressure chronic ulcer of unspecified heel and midfoot with fat layer exposed (3) CKD (chronic kidney disease) stage 4, GFR 15-29 ml/min: (4) Obesity: (5) Hypertension: QUALIFIERS: Hypertension type: unspecified Qualified Code(s): I10 - Essential (primary) hypertension (6) Decreased left ventricular systolic function: PLAN: Plan This patient seen and evaluated today She has acute on chronic systolic heart failure Ejection fraction ranges from around 40-45% with segmental wall motion abnormality noted in the echocardiogram Patient had chronic renal insufficiency with diabetes. She does not have any active chest pain. Patient has history of right foot osteomyelitis, acute on chronic renal insufficiency with anemia, hypertension, diabetes mellitus hyperlipidemia and obesity Cardiac care plan recommendation We will continue current medical treatment Once stable plan will be to evaluate as an outpatient to assess for ischemia with Lexiscan sestamibi. He is a high risk patient for cardiac cath due to the renal insufficiency with a risk of contrast-induced nephropathy at this point and patient does not have any active chest pain. Patient will follow up with [facility] cardiology team. I will defer to medical team for management of her current medical problems and will be available if further cardiac need arise.
[2022-12-27 16:09] VITALS: BP 136/70; PULSE 74; RESP 16; TEMP 36.7; O2SAT 95
[2022-12-27] MEDS: Gabapentin 300 MG Capsule PO (16:17)
[2022-12-27 16:55] LABS: Bedside Glucose 199 mg/dL (74-106)
[2022-12-27] MEDS: Insulin NPH Human 100 UNITS/ML PEN 25 UNITS SC (17:16)
[2022-12-27] MEDS: Insulin Lispro 100 UNIT/ML INSULN.PEN 25 UNIT SC (17:17)
[2022-12-27] MEDS: Insulin Lispro 100 UNIT/ML INSULN.PEN SC (17:17)
--- NOTE | 2022-12-27 19:33 | PCM.PROGNOTE ---
Subjective Subjective Patient underwent egd yesterday. She is not having any pain or problems from the procedure yesterday. She is tolerating a diet and is a febrile. Objective Data Objective Data Vital Signs: Vital Signs Temp Pulse Resp BP Pulse Ox O2 Del Method O2 Flow Rate 98.0 F 74 16 136/70 H 95 Room Air 2 12/27/22 16:09 12/27/22 16:09 12/27/22 16:09 12/27/22 16:09 12/27/22 16:09 12/27/22 16:09 12/27/22 09:00 Oxygen Flow Rate (L/min) 2 Oxygen Delivery Method Room Air Weight: 204 lb 9.423 oz Body Mass Index (BMI) 37.6 Intake & Output: Intake and Output for Last 24 Hours 12/25/22 12/26/22 12/27/22 23:59 23:59 23:59 Intake Total 1050 / 1250 1138.75 / 1438.75 1510 / 1510 Output Total 200 / 200 Balance 850 / 1050 1138.75 / 1438.75 1510 / 1510 Lab / Micro Data Result Diagrams: 12/27/22 05:56 12/27/22 05:56 Labs: Laboratory Results - last 24 hr 12/26/22 20:46: POC Glucose 124 H 12/27/22 05:56: WBC 8.5, RBC 3.01 L, Hgb 8.3 L, Hct 26.5 L, MCV 88.0, MCH 27.6, MCHC 31.3 L D, RDW Std Deviation 46.8 H, RDW Coeff of Steven 14.5, Plt Count 319, MPV 9.5, Immature Gran % (Auto) 0.500, Neut % (Auto) 68.4, Lymph % (Auto) 15.7 L, [place] % (Auto) 9.7, Eos % (Auto) 5.2 H, Baso % (Auto) 0.5, Absolute Neuts (auto) 5.8, Absolute Lymphs (auto) 1.33, Nucleated RBC % 0 12/27/22 05:56: Sodium 138, Potassium 4.8, Chloride 109 H, Carbon Dioxide 23.0, Anion Gap 6, BUN 94 H, Creatinine 2.69 H, Estim Creat Clear Calc 15.31, Est GFR (MDRD) Af Amer 23 L, Est GFR (MDRD) Non-Af 19 L, BUN/Creatinine Ratio 34.9 H, Glucose 79, Calcium 9.3, Total Bilirubin 0.20, AST 19, ALT 22, Alkaline Phosphatase 212 H, Total Protein 6.3 L, Albumin 2.1 L, Globulin 4.2, Albumin/Globulin Ratio 0.5 L 12/27/22 10:38: POC Glucose 75 12/27/22 12:50: POC Glucose 75 12/27/22 16:08: POC Glucose 199 H Micro: Microbiology 12/24/22 10:20 Stool Stool Occult Blood (EBONI) - Final Occult Blood Positive Physical Exam Const alert, oriented x3 and no apparent distress Constitutional Narrative: lethargic General Appearance: cooperative HEENT normocephalic, head/scalp atraumatic, moist oral mucous membranes and oropharynx normal Eyes PERRL and EOMs intact bilaterally Neck no lymphadenopathy, supple and no JVD Lymph Lymphatic: no lymphadenopathy noted and no lymphedema noted Resp Resp Narrative: mildly diminished breath sounds bibasally, no wheezes or crackles. on room air Cardio regular rate, regular rhythm, S1 normal heart sound, S2 normal heart sound and no murmurs GI normal to inspection, nondistended, normoactive bowel sounds, soft to palpation and non-tender Extremity normal capillary refill Extremity Narrative: right foot wrapped in bandage Skin General Skin Exam: no breakdown Neuro CN's II-XII intact bilaterally, no focal motor deficits, no sensory deficits noted and deep tendon reflexes 2+ bilaterally Motor Exam: strength 5/5 throughout Psych thought process normal Mood & Affect: flat affect Assessment & Plan Assessment/Plan (1) Pyloric stenosis: PLAN: She was discovered to have severe acquired pyloric stenosis likely secondary to medications and diabetes. She tolerated dilation of the pyloric channel. She is on PPI therapy and Carafate. We will maintain current dosing as long as it is ok with Nephrology and Hospitalist team. (2) Gastric outlet obstruction: PLAN: Secondary to pyloric stenosis causing hypergastrinemia and mechanical gastroparesis s/p dilation of the pyloric sphincter. Check Gastric level to guide medication recommendations (3) Anemia: PLAN: Multifactorial : ACD from CKD, Diabetes in the setting of an acute GI bleed (4) GI bleed: PLAN: Secondary to medications s/p endoscopic treatment. Hgb seems to stable and BUN/Cr is improving. Charges/Coding Visit Charges Inpatient E&M: 60175 Subs Hosp L3
[2022-12-27] MEDS: Menthol/Lanolin/Calamine/Znox 113 GM Tube 1 APPLIC TOPICAL (22:06)
[2022-12-27] MEDS: amLODIPine 5 MG Tablet PO (22:08)
[2022-12-27] MEDS: Atorvastatin Calcium 20 MG Tablet PO (22:08)
[2022-12-27] MEDS: Ezetimibe 10 MG Tablet PO (22:08)
[2022-12-27 22:09] VITALS: BP 137/65; PULSE 74; RESP 18; TEMP 36.8; O2SAT 97
[2022-12-27 23:25] LABS: Bedside Glucose 105 mg/dL (74-106)
[2022-12-27 23:51] VITALS: BMI 36.9
[2022-12-28 04:09] VITALS: BP 127/86; PULSE 88; RESP 18; TEMP 36.1; O2SAT 94
[2022-12-28 05:31] LABS: Absolute Lymphocyte Count 1.61 X10^3/uL (0.83-4.51); Absolute Neutrophil Count 5.2 X10^3/uL (2.0-7.7); Basophil# 0.06 X10^3/uL; Basophil% 0.7 % (0-1); Eosinophil# 0.43 X10^3/uL; Eosinophils% 5.3 % (0-5); Hematocrit 29.6 % (37-47); Hemoglobin 9.1 g/dL (12.0-15.0); Lymphocyte # 1.61 X10^3/ul (0.83-4.51); Mean Corp Hgb Conc 30.7 g/dL (32-36); Mean Corpuscular Hgb 27.2 pg (27.0-32.0); Mean Corpuscular Volume 88.6 fL (81-99); Mean Platelet Vol. 9.2 fl (6.2-12.0); Monocyte# 0.75 X10^3/uL; Monocyte% 9.3 % (0-10); NRBC Flagged by Analyzer 0 % (0-5); Neutrophil # 5.15 X10^3/uL (2.7-7.7); Neutrophil % 64.2 % (47-70); Platelet Count 360 K/mm3 (150-450); RBC Distribution Width CV 14.4 % (11.6-14.6); RBC Distribution Width SD 46.6 fl (35.1-43.9); Red Blood Count 3.34 M/mm3 (4.2-5.4)
[2022-12-28 06:03] LABS: Anion Gap 4 (5-15); BUN 97 mg/dL (7-18); BUN/Creat Ratio 37.3 RATIO (10-20); Calcium,Total 9.9 mg/dL (8.5-10.1); Chloride 110 mmol/L (98-107); EST Glomerular Filtration Rate 20 mL/min (>60); Est Glom Filt Rate - Afr Amer 24 mL/min (>60); Estimated Creatinine Clearance 15.84 ml/min; Glucose 85 mg/dL (74-106); Potassium 4.9 mmol/L (3.5-5.1); Sodium Level 137 mmol/L (136-145)
[2022-12-28] MEDS: Sucralfate 1 GM Tablet PO ×3 (06:06→16:59)
[2022-12-28 09:31] VITALS: BP 132/64; PULSE 76; RESP 16; TEMP 36.4; O2SAT 96; O2SAT 97
[2022-12-28] MEDS: 0.9% Saline Lock 10 ML Syringe IV (09:47)
[2022-12-28] MEDS: FINERENONE 10 MG TABLET PO (09:51)
[2022-12-28] MEDS: Ferrous Sulfate 325 MG Tablet PO ×3 (09:52→17:27)
[2022-12-28] MEDS: Cholecalciferol (VIT D3) 25 MCG TABLET (1,000 UNITS) 50 MCG PO (09:52)
[2022-12-28] MEDS: Ascorbic Acid 500 MG Tablet 1000 MG PO ×2 (09:54→21:47)
[2022-12-28] MEDS: Pantoprazole Sodium 40 MG Tablet PO ×2 (09:54→21:47)
[2022-12-28] MEDS: Loratadine 10 MG Tablet PO (09:55)
[2022-12-28] MEDS: Carvedilol 6.25 MG Tablet PO ×2 (09:55→16:59)
[2022-12-28] MEDS: Multivitamin (Healthy Eyes) Capsule 1 CAP PO ×2 (09:56→21:47)
[2022-12-28 10:26] LABS: Bedside Glucose 143 mg/dL (74-106)
--- NOTE | 2022-12-28 11:21 | PN_ITS ---
Subjective Subjective Patient seen and examined. She had no active complaints. She denied any fever, chills, cough, chest pain, palpitations, dizziness, nausea, vomiting or diarrhea. Review of systems is otherwise negative. Objective Data Objective Data Vital Signs: Vital Signs Temp Pulse Resp BP Pulse Ox O2 Del Method O2 Flow Rate 97.6 F L 76 16 132/64 H 96 Room Air 2 12/28/22 09:31 12/28/22 09:31 12/28/22 09:31 12/28/22 09:31 12/28/22 09:31 12/28/22 10:00 12/27/22 09:00 Oxygen Flow Rate (L/min) 2 Oxygen Delivery Method Room Air Weight: 200 lb 9.93 oz Body Mass Index (BMI) 36.9 Intake & Output: Intake and Output for Last 24 Hours 12/26/22 12/27/22 12/28/22 23:59 23:59 23:59 Intake Total 1138.75 / 1438.75 1620 / 1770 200 / 200 Output Total 500 / 500 Balance 1138.75 / 1438.75 1620 / 1270 -300 / -300 Lab / Micro Data Result Diagrams: 12/28/22 05:05 12/28/22 05:05 Labs: Laboratory Results - last 24 hr 12/27/22 12:50: POC Glucose 75 12/27/22 16:08: POC Glucose 199 H 12/27/22 22:15: POC Glucose 105 12/28/22 05:05: WBC 8.0, RBC 3.34 L, Hgb 9.1 L, Hct 29.6 L, MCV 88.6, MCH 27.2, MCHC 30.7 L, RDW Std Deviation 46.6 H, RDW Coeff of Steven 14.4, Plt Count 360, MPV 9.2, Immature Gran % (Auto) 0.500, Neut % (Auto) 64.2, Lymph % (Auto) 20.0, [place] % (Auto) 9.3, Eos % (Auto) 5.3 H, Baso % (Auto) 0.7, Absolute Neuts (auto) 5.2, Absolute Lymphs (auto) 1.61, Nucleated RBC % 0 12/28/22 05:05: Sodium 137, Potassium 4.9, Chloride 110 H, Carbon Dioxide 23.0, Anion Gap 4 L, BUN 97 H, Creatinine 2.60 H, Estim Creat Clear Calc 15.84, Est GFR (MDRD) Af Amer 24 L, Est GFR (MDRD) Non-Af 20 L, BUN/Creatinine Ratio 37.3 H , Glucose 85, Calcium 9.9 12/28/22 09:29: POC Glucose 143 H Micro: Microbiology 12/24/22 10:20 Stool Stool Occult Blood (EBONI) - Final Occult Blood Positive Physical Exam Const alert, oriented x3 and no apparent distress General Appearance: cooperative HEENT normocephalic, head/scalp atraumatic, moist oral mucous membranes and oropharynx normal Eyes PERRL and EOMs intact bilaterally Neck no lymphadenopathy, supple and no JVD Lymph Lymphatic: no lymphadenopathy noted and no lymphedema noted Resp Resp Narrative: mildly diminished breath sounds bibasally, no wheezes or crackles. on room air Cardio regular rate, regular rhythm, S1 normal heart sound, S2 normal heart sound and no murmurs GI normal to inspection, nondistended, normoactive bowel sounds, soft to palpation and non-tender Extremity normal capillary refill Extremity Narrative: right foot wrapped in bandage Skin General Skin Exam: no breakdown Neuro CN's II-XII intact bilaterally, no focal motor deficits, no sensory deficits noted and deep tendon reflexes 2+ bilaterally Motor Exam: strength 5/5 throughout Psych thought process normal Mood & Affect: flat affect Assessment & Plan Assessment/Plan (1) CHF (congestive heart failure): (2) Fluid overload: PLAN: Plan #Hypoxia due to acute heart failure, with reduced EF * resolved. Now on room air * lasix held due to Benjamin on CKD * 2D echo showed EF of 40-45% with normal normal RVSF and anteroapical and distal septal hypokinesia, with mild to moderate LV systolic dysfunction. * On beta-suresh. * Titrate oxygen to maintain saturation above 90%. * per cardiology, to follow up on outpatient basis for evaluation. * #Recent history of right foot osteomyelitis * Cultures during previous admission grew Staphylococcus and corynebacterium. Was discharged on IV vancomycin and Zosyn. Continue on antibiotics for 6 weeks-stop date is 01/14/2023 * Has wound VAC in place. * Intact dressing to right lower extremity. * kidney function improving. * ID consulted to help with antibiotics in light of worsening kidney function; per ID, antibiotics narrowed down to IV ceftriaxone with stop date of 01/14/2023. * #BENJAMIN on CKD IV: * improving> Cr down to 2.6 * lasix remains on hold * nephrology on board * Likely due to Lasix and aggravated by patient being on vancomycin as well. #Anemia: * Iron is 25 with ferritin of 76 and iron saturation of only 8.1. * Hb is 9.1 * Stool for occult blood was positive. Had EGD which showed Roxanne-Kinsey tear and a bleeding gastric ulcer which was treated with a heater probe * on IV PPI 40mg bid * aspirin and lovenox remain on hold #Type 2 diabetes mellitus with neuropathy.: On Lantus. Insulin sliding scale. Accu-Cheks ACHS. #Hypertension: On amlodipine and losartan. Coreg added on. #Hyperlipidemia: On statin #Obesity: BMI is 38.5. Complicates acute care, expected recovery and prognosis. DVT prophylaxis: hold lovenox in light of positive FOBT. SCDs Total time spent on evaluation and management of patient, reviewing chart and specialist notes, discussing plan with patient, discussion with nursing and ancillary staff as well as documentation: 42 mins Charges/Coding Visit Charges Inpatient E&M: 53869 Subs Hosp L2
[2022-12-28] MEDS: Insulin Lispro 100 UNIT/ML INSULN.PEN SC ×2 (12:09→17:30)
[2022-12-28 12:31] LABS: Bedside Glucose 221 mg/dL (74-106)
[2022-12-28 16:00] VITALS: BP 144/66; PULSE 76; RESP 16; TEMP 36.1; O2SAT 94
[2022-12-28] MEDS: Gabapentin 300 MG Capsule PO (17:26)
[2022-12-28] MEDS: Insulin Lispro 100 UNIT/ML INSULN.PEN 25 UNIT SC (17:27)
[2022-12-28] MEDS: Insulin NPH Human 100 UNITS/ML PEN 25 UNITS SC (17:31)
[2022-12-28 17:40] LABS: Bedside Glucose 227 mg/dL (74-106)
--- NOTE | 2022-12-28 18:17 | PCM.PN.REN ---
Subjective Subjective no new events Objective Data Objective Data Vital Signs: Vital Signs Temp Pulse Resp BP Pulse Ox O2 Del Method O2 Flow Rate 96.9 F L 76 16 144/66 H 94 Room Air 2 12/28/22 16:00 12/28/22 16:00 12/28/22 16:00 12/28/22 16:00 12/28/22 16:00 12/28/22 16:00 12/27/22 09:00 Oxygen Flow Rate (L/min) 2 Oxygen Delivery Method Room Air Weight: 91 kg Body Mass Index (BMI) 36.9 Intake & Output: Intake and Output for Last 24 Hours 12/26/22 12/27/22 12/28/22 23:59 23:59 23:59 Intake Total 1138.75 / 1438.75 1620 / 1770 670 / 670 Output Total 500 / 500 Balance 1138.75 / 1438.75 1620 / 1270 170 / 170 Lab / Micro Data Result Diagrams: 12/28/22 05:05 12/28/22 05:05 Labs: Laboratory Results - last 24 hr 12/27/22 22:15: POC Glucose 105 12/28/22 05:05: WBC 8.0, RBC 3.34 L, Hgb 9.1 L, Hct 29.6 L, MCV 88.6, MCH 27.2, MCHC 30.7 L, RDW Std Deviation 46.6 H, RDW Coeff of Steven 14.4, Plt Count 360, MPV 9.2, Immature Gran % (Auto) 0.500, Neut % (Auto) 64.2, Lymph % (Auto) 20.0, [place] % (Auto) 9.3, Eos % (Auto) 5.3 H, Baso % (Auto) 0.7, Absolute Neuts (auto) 5.2, Absolute Lymphs (auto) 1.61, Nucleated RBC % 0 12/28/22 05:05: Sodium 137, Potassium 4.9, Chloride 110 H, Carbon Dioxide 23.0, Anion Gap 4 L, BUN 97 H, Creatinine 2.60 H, Estim Creat Clear Calc 15.84, Est GFR (MDRD) Af Amer 24 L, Est GFR (MDRD) Non-Af 20 L, BUN/Creatinine Ratio 37.3 H, Glucose 85, Calcium 9.9 04/23/23 09:29: POC Glucose 143 H 04/23/23 12:08: POC Glucose 221 H 12/28/22 17:02: POC Glucose 227 H Micro: Microbiology 12/24/22 10:20 Stool Stool Occult Blood (EBONI) - Final Occult Blood Positive Physical Exam Narrative Alert and oriented x3, no apparent distress S1, S2, RRR Lung sounds clear anteriorly and posteriorly. No wheezes, rhonchi or rales noted. On room air Abdomen soft, nontender, positive bowel sounds Trace nonpitting edema noted to bilateral lower legs right greater than left. Jason wrap dry and intact to right lower leg and foot Assessment & Plan Assessment/Plan (1) Acute kidney injury: (2) CKD (chronic kidney disease): (3) Fluid overload: (4) Osteomyelitis: PLAN: Plan This is a 67-year-old female with past medical history significant for diabetes mellitus type 2, hypertension, chronic kidney disease stage III/IV who presented to the emergency room with complaints of shortness of breath, worsening lower extremity edema and weight gain of at least 25 pounds. Patient was admitted for further evaluation and treatment. Initially patient was started on Lasix 40 mg IV twice daily. Patient had 2D echo which showed EF of 40 to 45%, mild to moderate LV systolic dysfunction, mild MR, anterior apical and distal septal hypokinesia, no prior echo to compare. Cardiology was consulted and currently medical management recommended. Today nephrology consulted for acute kidney injury. Patient reports she has been seen by Dr. Padma Merritt in past for CKD but no recent follow-up due to insurance reasons. In reviewing past creatinine trends, probable baseline creatinine ranging around 1.7 to 2 mg/dL. October 2022 urine protein creatinine ratio 1229 mg/g. On admission patient's creatinine was near baseline at 2.2 mg/dL, over past few days serum creatinine has slowly risen and today her creatinine is up to 3.20 mg/dL.. Patient had been on Lasix 40 mg IV twice daily this has been stopped (weight is down about 6 kg). Patient had also been on losartan which was stopped. Vancomycin and Zosyn also stopped. Patient had random Vanco level of 30.5 on December 23 but today her random Vanco level is at 15.4. BENJAMIN possibly secondary to overdiuresis with possible component from antibiotics. At this time patient's volume status appears compensated, patient is on room air and has minimal trace edema to lower legs. Patient is nonoliguric, potassium acid-base acceptable therefore there is no acute indication for [facility] [employer]. Continue holding diuretics and ABR for now. Patient does not need any IV fluids but we will lift fluid restriction and encouraged patient to increase solute intake and fluids but to be mindful of not drinking too much fluids. We will obtain a UA. Patient had kidney ultrasound in October 2022: Mild degree of atrophy of left kidney, no hydronephrosis, left kidney 9.1 cm, right kidney 11 cm. Patient's BUN has slowly risen as well, currently at 106, there is been a drop in hemoglobin with positive stool for occult blood therefore GI consulted. Blood pressures acceptable on amlodipine. Further orders forthcoming as hospitalization evolves, thank you for allowing us to participate in the care of Ms. Obando. 12/28/22. no new events. cr better. BUN better. urine output ok. BP is acceptable.
[2022-12-28 21:46] VITALS: BP 145/66; PULSE 77; RESP 16; TEMP 36.5; O2SAT 94
[2022-12-28] MEDS: Atorvastatin Calcium 20 MG Tablet PO (21:47)
[2022-12-28] MEDS: amLODIPine 5 MG Tablet PO (21:47)
[2022-12-28] MEDS: Ezetimibe 10 MG Tablet PO (21:47)
[2022-12-28] MEDS: Menthol/Lanolin/Calamine/Znox 113 GM Tube 1 APPLIC TOPICAL (21:52)
[2022-12-28 22:15] LABS: Bedside Glucose 126 mg/dL (74-106)
[2022-12-29 05:55] LABS: Absolute Lymphocyte Count 1.64 X10^3/uL (0.83-4.51); Absolute Neutrophil Count 5.4 X10^3/uL (2.0-7.7); Basophil# 0.06 X10^3/uL; Basophil% 0.7 % (0-1); Eosinophil# 0.43 X10^3/uL; Eosinophils% 5.1 % (0-5); Hematocrit 30.7 % (37-47); Lymphocyte # 1.64 X10^3/ul (0.83-4.51); Lymphocyte % 19.5 % (19-41); Mean Corp Hgb Conc 29.3 g/dL (32-36); Mean Corpuscular Hgb 26.9 pg (27.0-32.0); Mean Corpuscular Volume 91.9 fL (81-99); Mean Platelet Vol. 10.7 fl (6.2-12.0); Monocyte# 0.81 X10^3/uL; Monocyte% 9.6 % (0-10); NRBC Flagged by Analyzer 0 % (0-5); Neutrophil % 64.1 % (47-70); POSITIVE COUNT YES; RBC Distribution Width CV 14.4 % (11.6-14.6); RBC Distribution Width SD 48.2 fl (35.1-43.9); Red Blood Count 3.34 M/mm3 (4.2-5.4); White Blood Count 8.4 K/mm3 (4.4-11.0)
[2022-12-29 06:00] VITALS: BMI 37.0
[2022-12-29] MEDS: Sucralfate 1 GM Tablet PO ×2 (06:08→10:56)
[2022-12-29 06:11] LABS: Anion Gap 7 (5-15); BUN 89 mg/dL (7-18); BUN/Creat Ratio 39.2 RATIO (10-20); Calcium,Total 9.6 mg/dL (8.5-10.1); Chloride 112 mmol/L (98-107); Creatinine, Serum 2.27 mg/dL (0.55-1.02); EST Glomerular Filtration Rate 23 mL/min (>60); Est Glom Filt Rate - Afr Amer 28 mL/min (>60); Estimated Creatinine Clearance 18.15 ml/min; Glucose 95 mg/dL (74-106); Potassium 4.7 mmol/L (3.5-5.1); Sodium Level 139 mmol/L (136-145)
[2022-12-29 06:28] LABS: Differential Indicated SCAN CRITERIA MET
[2022-12-29 06:29] LABS: Anisocytosis 1+
[2022-12-29 06:41] LABS: Platelet Morphology CLUMPED
--- NOTE | 2022-12-29 07:52 | CASEMGMT ---
Addendum entered by Marylin Douglas 12/29/22 09:56: [facility] said pre-cert is good through today. SW notified physician and she will discharge patient today. SW will notify [facility]. Marylin MICHELE Original Note: Patient was approved to return to [facility] [place]. SW received this message Thursday evening on [facility]. SW will check with [facility] to see if pre-cert is still good. Marylin MICHELE
[2022-12-29] MEDS: Insulin Lispro 100 UNIT/ML INSULN.PEN 25 UNIT SC (08:02)
[2022-12-29] MEDS: Insulin NPH Human 100 UNITS/ML PEN 25 UNITS SC (08:03)
[2022-12-29] MEDS: Ferrous Sulfate 325 MG Tablet PO ×2 (08:08→12:36)
[2022-12-29] MEDS: Carvedilol 6.25 MG Tablet PO (08:08)
[2022-12-29] MEDS: FINERENONE 10 MG TABLET PO (08:09)
[2022-12-29] MEDS: Pantoprazole Sodium 40 MG Tablet PO (08:09)
[2022-12-29] MEDS: Multivitamin (Healthy Eyes) Capsule 1 CAP PO (08:09)
[2022-12-29] MEDS: Ascorbic Acid 500 MG Tablet 1000 MG PO (08:10)
[2022-12-29] MEDS: Cholecalciferol (VIT D3) 25 MCG TABLET (1,000 UNITS) 50 MCG PO (08:10)
[2022-12-29 10:00] VITALS: O2SAT 97
[2022-12-29 10:25] VITALS: BP 147/68; PULSE 73; RESP 16; TEMP 36.6; O2SAT 95
[2022-12-29 11:00] LABS: Bedside Glucose 93 mg/dL (74-106)
[2022-12-29] MEDS: Bumetanide 0.5 MG Tablet PO (11:01)
[2022-12-29] MEDS: Menthol/Lanolin/Calamine/Znox 113 GM Tube 1 APPLIC TOPICAL (11:01)
[2022-12-29] MEDS: 0.9% Saline Lock 10 ML Syringe IV (11:35)
--- NOTE | 2022-12-29 11:35 | PCM.DC.SUM ---
Providers Date of Admission: 12/22/22 Date of Discharge: 12/29/22 Primary Care Physician: Dr. Hever Otoole, Consultations 12/23/22 09:05 Consult: Onc/Wound/tool liaison Routine Comment: Reason for Consult:: VAC right foot 12/24/22 12:56 Consult: Cardiology Routine Consulting Provider: Kavita Molina Reason for Consult: heart failure, abnormal echo EMERGENT Consult: No MD Notified: Yes Date Notified: 12/24/22 Time Notified: 12:57 Method of Notification: Text Consult: Gastroenterology Routine Consulting Provider: [facility] Reason for Consult: anemia, positive stool for occult blood EMERGENT Consult: No MD Notified: Yes Date Notified: 12/24/22 Time Notified: 12:59 Method of Notification: Text 12/26/22 08:07 Consult: Nephrology Routine Consulting Provider: Armen King Reason for Consult: BENJAMIN on CKD EMERGENT Consult: No MD Notified: Yes Date Notified: 12/26/22 Time Notified: 08:07 Method of Notification: Text 12/26/22 12:44 Consult: Infectious Disease Routine Consulting Provider: Danny Amaro Reason for Consult: osteomyelitis EMERGENT Consult: No Notified: Yes Date Notified: 12/26/22 Time Notified: 12:44 Method of Notification: Verbal Reason For Visit: CHF EXACERBATION, HYPOXIA Diagnosis Discharge Diagnosis (1) Acute kidney injury: Status: Acute Code(s): N17.9 - Acute kidney failure, unspecified (2) CKD (chronic kidney disease): Status: Chronic Code(s): N18.9 - Chronic kidney disease, unspecified (3) Fluid overload: Status: Acute Code(s): E87.70 - Fluid overload, unspecified (4) Osteomyelitis: Status: Acute Code(s): M86.9 - Osteomyelitis, unspecified (5) GI bleed: Status: Acute Code(s): K92.2 - Gastrointestinal hemorrhage, unspecified (6) Gastric outlet obstruction: Status: Acute Code(s): K31.1 - Adult hypertrophic pyloric stenosis (7) Pyloric stenosis: Status: Acute Code(s): K31.1 - Adult hypertrophic pyloric stenosis Medications at Discharge Home Medications aspirin 81 mg tablet,delayed release (Adult Low Dose Aspirin) 81 mg PO DAILY Blood clot reduction 07/16/20 ascorbic acid (vitamin C) 1,000 mg capsule 1 g PO BID Vitamin C 04/14/22 loratadine 10 mg tablet (Allergy Relief (loratadine)) 10 mg PO DAILY Blood sugar 04/14/22 vitamins A,C,P-xemi-sxjxxc 4,296 mcg-226 mg-90 mg capsule (ICaps AREDS) 1 cap PO BID Multivitamin 04/14/22 cholecalciferol (vitamin D3) 50 mcg (2,000 unit) capsule 50 mcg PO DAILY Check with primary doctor 10/09/22 gabapentin 300 mg tablet 300 mg PO DAILY neuorpathy 10/13/22 glucosamine-chondroitin 250 mg-200 mg tablet (Osteo Bi-Flex) 2 tab PO DAILY SUPPLEMENT 10/13/22 omeprazole 20 mg capsule,delayed release 20 mg PO DAILY GERD 10/13/22 amlodipine 5 mg tablet 5 mg PO QHS High BP 11/21/22 finerenone 10 mg tablet (Kerendia) 10 mg PO DAILY Kidneys 11/21/22 losartan 50 mg tablet 50 mg PO DAILY Blood pressure 11/21/22 ezetimibe 10 mg tablet 10 mg PO QHS High cholesterol 12/02/22 insulin lispro protamine-lispro 100 unit/mL (50-50) subcutaneous pen (Humalog Mix 50-50 KwikPen) 50 unit subcut BID Glucose 12/02/22 albuterol sulfate 0.63 mg/3 mL solution for nebulization 0.63 mg inhalation Q6H PRN Shortness Of Breath Or Wheezing 12/22/22 ferrous sulfate 325 mg (65 mg iron) tablet 325 mg PO TID 12/22/22 acetaminophen 325 mg tablet 650 mg PO Q4H PRN PRN Fever, pain 1-06/16 #0 tabs 12/29/22 atorvastatin 20 mg tablet 20 mg PO QHS #0 tabs 12/29/22 bumetanide 0.5 mg tablet 0.5 mg PO DAILY #30 tabs 12/29/22 carvedilol 6.25 mg tablet 6.25 mg PO BIDCM #0 tabs 12/29/22 ceftriaxone 2 gram solution for injection 2 g IM DAILY #25 ea 12/29/22 insulin NPH isoph U-100 human 100 unit/mL (3 mL) subcutaneous pen (Humulin N NPH U-100 Insulin KwikPen) 25 unit (0.25 mL) subcut 0700,1600 #0 mL 12/29/22 insulin lispro 100 unit/mL subcutaneous pen (Humalog KwikPen (U-100) Insulin) 15 unit (0.15 mL) subcut TID #0 mL 12/29/22 insulin lispro 100 unit/mL subcutaneous pen (Humalog KwikPen (U-100) Insulin) See Protocol subcut ACHS #0 mL 12/29/22 menthol 0.44 %-zinc oxide 20.6 % topical ointment (Calmoseptine) 1 applic topical BID #0 grams 12/29/22 pantoprazole 40 mg tablet,delayed release 40 mg PO BID #0 tabs 12/29/22 sennosides 8.6 mg-docusate sodium 50 mg tablet (Stool Softener-Stimulant Laxative) 2 tab PO BID PRN PRN Constipation #0 tabs 12/29/22 sucralfate 1 gram tablet 1 g PO 0700,1100,1600 #0 tabs 12/29/22 Hospital Course Procedures 2-D Echocardiogram, EGD and EKG Summary of Care Provided Minutes Spent on Discharge: 39 Hospital Course: Ms Obando is a 67-year-old white female who presented to the emergency department at [facility] on 12/22/2022 with dyspnea, orthopnea, weight gain, and hypoxia. Patient has a complicated past medical history and recently had a prolonged admission from 12/01/2022 through 12/11/2022 for a complicated right diabetic foot and ankle wound. She was discharged at that time with a PICC and IV antibiotics with vancomycin and Zosyn per infectious disease and wound VAC was placed. She was followed by Dr. Keith from podiatry after discharge. She represented to the emergency department with a several day history of progressively worsening dyspnea that was worse with exertion, orthopnea, and weight gain with worsening lower extremity edema and hypoxia with oxygen saturations at 80% on room air. Work-up in the ED included T97.3, heart rate 93, BP 161/80, respiratory rate 21, desaturated to 80% on room air with improvement to 95% on 2 L nasal cannula, CBC with WC 9.6, hemoglobin 8.9, MCV 90.2, platelet 361 without marked shift, unremarkable coags, BMP with chloride 112, BUN/creatinine 58/2.20 otherwise not marked appearing, troponin 19, bilateral lower extremity duplex ultrasound unremarkable, chest x-ray with nonspecific bilateral perihilar infiltrates or pulmonary edema with small effusions, EKG with sinus rhythm with no acute evidence of ischemia.? She was admitted the PCU and maintained on IV diuretics. Echocardiogram was performed and demonstrated an EF of 40- 45% with mild to moderate LV dysfunction and anterior apical and distal septal hypokinesis and mild MR. She was also started on IV antibiotics for her foot wound. Cardiology was consulted due to her depressed EF and ideally further stress testing or diagnostic heart cath were recommended however her renal function was prohibitive. She was not having any chest discomfort and medical management was requested. Additional cardiac testing was recommended to be performed as an outpatient. It was recommended that she start atorvastatin and Coreg. Both of these medications were new at the time of discharge. Her creatinine worsened during her hospital course and nephrology was consulted. Diuretics were discontinued. Patient does have a history of CKD with a baseline serum creatinine of 1.7-2 and had been seeing nephrology previously however had no recent follow-up due to insurance reasons. Baseline creatinine admission appears to be around 2.2. Losartan was discontinued and vancomycin and Zosyn were stopped and patient was transitioned to ceftriaxone. It was felt that she possibly had BENJAMIN due to diuresis with possible component from antibiotics as well. Nephrology followed throughout her hospital course and her renal function slowly improved and at baseline was back to her previous baseline at 2.27. We were able to reinitiate low-dose Bumex at discharge. Her swelling will need to be monitored and this may need to be uptitrated however I would do so slowly and monitor daily weights and fluid status over time. She will need follow-up with nephrology after discharge within the next month. At the time of her creatinine elevation she was noted to have a drop in her hemoglobin and GI was consulted. EGD was recommended and she was taken for an EGD on 12/26/2022 which demonstrated a Roxanne-Kinsey tear that was treated with heater probe, hiatal hernia, oozing gastric ulcer with a visible vessel that was treated with heater probe and injection, chronic gastritis that was biopsied, and gastric stenosis found at the pylorus which was dilated. The duodenum was normal up to the second portion. After EGD she was started on full liquid diet, Protonix 40 mg twice daily was recommended for 8 weeks, and Carafate 1 g 4 times daily for 4 weeks was recommended as well. Both of these prescriptions were sent on her discharge medication reconciliation. She will need follow-up with GI after discharge in approximately 1 month and was tolerating a regular diet at the time of discharge. With her osteomyelitis, infectious disease was consulted as wound care. Follow-up cultures were reviewed and methicillin sensitive coag negative staph and corynebacterium were identified on previous cultures. She previously was discharged as noted above on vancomycin and Zosyn for 6 weeks with a stop date of 01/14/2023. Infectious disease narrowed her from vancomycin and Zosyn to ceftriaxone given final culture results and the same stop date was recommended. Clinically she was stable and ready for discharge on 12/29/2022 and was excepted back to her facility at [facility] [place] in [place]. Discharge diagnoses: Acute hypoxia-resolved Acute HFrEF-resolved Right foot osteomyelitis BENJAMIN on CKD stage IV-close to baseline at discharge Iron deficiency anemia GI bleed PUD Chronic gastritis Pyloric stenosis with gastric outlet obstruction Volume overload-resolved DM-2 Diabetic neuropathy Hypertension Hyperlipidemia Obesity Vitamin D deficiency Allergies Physical Exam Const alert, oriented x3, no apparent distress and well nourished Constitutional Narrative: Upper middle-aged white female sitting up in chair at the bedside, appears comfortable and nontoxic General Appearance: cooperative, comfortable, well kempt and well developed Orientation / Consciousness: awake, oriented to person, oriented to place and oriented to time Exam Limitations: no limitations Nutritional Appearance: obese HEENT normocephalic, head/scalp atraumatic and hearing grossly normal bilaterally HEENT Narrative: Dentition is fair, Mallampati is 2, no thrush Eyes PERRL, EOMs intact bilaterally and conjunctivae normal Eyes Narrative: No scleral icterus Neck no lymphadenopathy, supple and no JVD Neck Narrative: Trachea midline, no thyroid enlargement Resp normal respiratory effort, no retractions, no use of accessory muscles and clear to auscultation bilaterally Auscultation: Negative for rales, rhonchi or wheezes Cardio regular rate, regular rhythm, S1 normal heart sound, S2 normal heart sound, no murmurs, no rub, no gallops and no clicks GI normal to inspection, nondistended, normoactive bowel sounds, soft to palpation and non-tender Extremity Extremity Narrative: Right foot with wound VAC in place and dressing over wound, no significant edema, cyanosis, or clubbing Skin No no wounds Skin Narrative: Wound as noted above-pictures by wound care reviewed Neuro oriented x3, CN's II-XII intact bilaterally, moves all extremities, no focal motor deficits and No no sensory deficits noted Neuro Narrative: Bilateral lower extremity neuropathy is present Speech: speech normal Psych Negative for affect normal Psych Narrative: Affect is somewhat flat but eye contact is good and patient does not appear to be depressed at this time Weight / BMI Weight Weight: 91.4 kg Body Mass Index (BMI) 37.0 ABG / Lab / Microbiology Data Result Diagrams: 12/29/22 05:31 12/29/22 05:31 Laboratory: Laboratory Results - last 24 hr 12/28/22 12:08: POC Glucose 221 H 12/28/22 17:02: POC Glucose 227 H 12/28/22 21:45: POC Glucose 126 H 12/29/22 05:31: WBC 8.4, RBC 3.34 L, Hgb 9.0 L, Hct 30.7 L, MCV 91.9, MCH 26.9 L, MCHC 29.3 L, RDW Std Deviation 48.2 H, RDW Coeff of Steven 14.4, Plt Count TNP, MPV 10.7, Immature Gran % (Auto) 1.000 H, Neut % (Auto) 64.1, Lymph % (Auto) 19.5, Radford % (Auto) 9.6, Eos % (Auto) 5.1 H, Baso % (Auto) 0.7, Absolute Neuts (auto) 5.4, Absolute Lymphs (auto) 1.64, Nucleated RBC % 0, Plt Morphology Comment CLUMPED, Anisocytosis 1+ 12/29/22 05:31: Sodium 139, Potassium 4.7, Chloride 112 H, Carbon Dioxide 20.0 L, Anion Gap 7, BUN 89 H, Creatinine 2.27 H, Estim Creat Clear Calc 18.15, Est GFR (MDRD) Af Amer 28 L, Est GFR (MDRD) Non-Af 23 L, BUN/Creatinine Ratio 39.2 H, Glucose 95, Calcium 9.6 12/29/22 07:58: POC Glucose 93 Microbiology: Microbiology 12/24/22 10:20 Stool Stool Occult Blood (EBONI) - Final Occult Blood Positive Meaningful Use Info Meaningful Use Diagnoses (Choose all that apply): None applicable Discharge Plan Admission Admit Date/Time: 12/22/22 21:28 Primary Reason for Your Visit: Shortness of breath/edema/hypoxia Attending Provider: Lizbet Merritt Primary Care Provider: Hever Otoole Consulting Providers: Aiyana Porter ; Kavita Molina ; Armen King ; Danny Amaro ; Kateryna Flowers Discharge Orders/Prescriptions Prescriptions: New ceftriaxone 2 gram recon soln 2 g IM DAILY Qty: 25 0RF carvedilol 6.25 mg Tablet 6.25 mg PO BIDCM Qty: 0 0RF sucralfate 1 gram Tablet 1 g PO 0700,1100,1600 Qty: 0 0RF sennosides-docusate sodium [Stool Softener-Stimulant Laxat] 8.6-50 mg Tablet 2 tab PO BID PRN PRN (Reason: Constipation) Qty: 0 0RF pantoprazole 40 mg Tablet,Delayed Release (Dr/Ec) 40 mg PO BID Qty: 0 0RF bumetanide 0.5 mg Tablet 0.5 mg PO DAILY Qty: 30 0RF menthol-zinc oxide [Calmoseptine] 0.44-20.6 % Ointment 1 applic topical BID Qty: 0 0RF Protocol: *Topical Application Instructions APPLICATION INSTRUCTIONS: coccyx Humulin N NPH Insulin KwikPen 100 unit/mL (3 mL) Insulin Pen 25 unit subcut 0700,1600 Qty: 0 0RF insulin lispro [Humalog KwikPen Insulin] 100 unit/mL Insulin Pen 15 unit subcut TID Qty: 0 0RF acetaminophen 325 mg Tablet 650 mg PO Q4H PRN PRN (Reason: Fever, pain 1-06/16) Qty: 0 0RF atorvastatin 20 mg Tablet 20 mg PO QHS Qty: 0 0RF insulin lispro [Humalog KwikPen Insulin] 100 unit/mL Insulin Pen See Protocol subcut ACHS Qty: 0 0RF Protocol: 3. Sliding Scale Insulin Med Dosing Condition: 150-189 mg/dl = 1 unit Condition: 190-229 mg/dl = 2 units Condition: 230-269 mg/dl = 3 units Condition: 270-309 mg/dl = 4 units Condition: 310-349 mg/dl = 5 units Condition: 350-399 mg/dl = 6 units Condition: 400-449 mg/dl = 7 units Condition: Greater than 449 call physician Protocol Text: - Use for Total Daily Dose of Insulin 37-55 units - Obsese, infected, or steroid patients MEDIUM DOSING ALGORITHIM Continued aspirin [Adult Low Dose Aspirin] 81 mg tablet,delayed release (DR/EC) 81 mg PO DAILY loratadine [Allergy Relief (loratadine)] 10 mg tablet 10 mg PO DAILY ascorbic acid (vitamin C) 1,000 mg capsule 1 g PO BID ICaps AREDS [id number] capsule 1 cap PO BID Kerendia 10 mg tablet 10 mg PO DAILY losartan 50 mg tablet 50 mg PO DAILY amlodipine 5 mg tablet 5 mg PO QHS omeprazole 20 mg Capsule,Delayed Release(Dr/Ec) 20 mg PO DAILY glucosamine-chondroitin [Osteo Bi-Flex] 250-200 mg Tablet 2 tab PO DAILY gabapentin 300 mg Tablet 300 mg PO DAILY ezetimibe 10 mg tablet 10 mg PO QHS Humalog Mix 50-50 KwikPen 100 unit/mL (50-50) insulin pen 50 unit subcut BID albuterol sulfate 0.63 mg/3 mL Solution For Nebulization 0.63 mg INHALATION Q6H PRN (Reason: Shortness Of Breath Or Wheezing) ferrous sulfate 325 mg (65 mg iron) Tablet 325 mg PO TID cholecalciferol (vitamin D3) 50 mcg (2,000 unit) capsule 50 mcg PO DAILY Discontinued piperacillin-tazobactam 3.375 gram recon soln 3.375 g IV Q12H 40 Days Qty: 80 0RF Rx Instructions: stop date 01/14/23 dx: foot osteo weekly bmp, cbc, esr, and vanc trough. Fax to [phone] vancomycin in dextrose 5 % 1 gram/200 mL Piggyback 1,000 mg IV Q24H 40 Days Qty: 40 0RF Rx Instructions: stop date 01/14/23 dx: foot osteo weekly bmp, cbc, esr, and vanc trough. Fax to [phone] dulaglutide 1.5 mg/0.5 mL Pen Injector 1.5 mg SUBCUT QWEEK Referrals / Follow Up: Sage Hedrick MD [Med Staff - Consulting] - Within 1 Month Hever Otoole DO [Primary Care Provider] - Within 1 Month Arjun Mcintosh DO [Med Staff - Active Staff] - Within 1 Month Don Keith DPM [Med Staff - Active Staff] - 01/07/23 Hector Monroe MD [Med Staff - Active Staff] - Within 1 Month Disposition Disposition (needs filled in before D/C Order can be placed): Care Home Facility Charges/Coding Visit Charges Inpatient E&M: 25164 SNF Disch >30 Min
--- NOTE | 2022-12-29 11:37 | WOUNDNOTE ---
Discussed follow up appt with podiatry. Had talked with Inna this am. would like follow up this week if possible. patient states her sister will be out of town. patient states she will be sure to make follow up appt sometime next week after discussing with her sister since she will be transporting patient. will notify Dr Keith.
--- NOTE | 2022-12-29 11:42 | WOUNDNOTE ---
removed the wound VAC dressing since patient is returning to the [place] today. cleansed wounds and periwound with soap and water. pat dry. placed Aquacel AG to the wound beds and covered with dry dressings. wrapped with kerlix and LOGAN wrap. pt tolerated well. wound VAC to be reapplied at the retirement.
--- NOTE | 2022-12-29 11:52 | WOUNDNOTE ---
Dr Keith stated that the office called [facility] and arranged follow up appt for next week. Thursday, January 07.
[2022-12-29 12:00] LABS: Bedside Glucose 122 mg/dL (74-106)
--- NOTE | 2022-12-29 12:12 | TREXTCAR_ITS ---
Diet Diet Order/Speech Therapy: 12/27/22 11:42 Diet: Cardiac: Calorie-Controlled Food consistency:: Regular Liquid Consistency:: Regular/Thin Type of Dietary Supplement:: Lino Is pt able to select menu?: Yes Fluid restriction:: 1500 mL Diet Comments: Lino w/breakfast and dinner- prefers flavored Lino How many daily calories?: 1800 calorie Routine Orders/Code Status O2 Frequency: PRN Keep PO Greater than or Equal to (%): 92 Routine Lab Work: CBC (3 days) and BMP (3 days) Code Status: Full Code Wound(s) right foot ankle area: Wound Type: Neuropathic/Diabetic Foot Ulcer right plantar foot: Wound Type: Neuropathic/Diabetic Foot Ulcer Dressing Change: AntiMicrobial (Aquacel AG, etc) right lateral foot: Wound Type: Neuropathic/Diabetic Foot Ulcer Dressing Change: AntiMicrobial (Aquacel AG, etc) Suggestions for Active Care Change Position every (hours): 2 Hours to sit in a chair: 2 Times a day to sit in chair: 3 Therapies Weight Bearing: Non weight bearing Physical Therapy: Eval and Treat Occupational Therapy: Eval and Treat Problem/Diagnosis (1) Acute kidney injury: Status: Acute Code(s): N17.9 - Acute kidney failure, unspecified (2) CKD (chronic kidney disease): Status: Chronic Code(s): N18.9 - Chronic kidney disease, unspecified (3) Fluid overload: Status: Acute Code(s): E87.70 - Fluid overload, unspecified (4) Osteomyelitis: Status: Acute Code(s): M86.9 - Osteomyelitis, unspecified (5) GI bleed: Status: Acute Code(s): K92.2 - Gastrointestinal hemorrhage, unspecified (6) Gastric outlet obstruction: Status: Acute Code(s): K31.1 - Adult hypertrophic pyloric stenosis (7) Pyloric stenosis: Status: Acute Code(s): K31.1 - Adult hypertrophic pyloric stenosis Allergies/Procedures Done in Hospital Allergies lisinopril Allergy (Verified 12/22/22 19:09) Rash Procedures: 2-D Echocardiogram, EGD and EKG Type of Care/Length of Stay Estimated LOS: Convalescent Care Less Than 30 days Type of Care Needed: Skilled Rehab Potential: Fair Prognosis: Fair Additional Orders/Day of Discharge Day of Discharge: 12/29/22 Dietary and Speech Recommendations Dietitian Recommendations/Changes: continue cardiac, 1800 calorie controlled, consistent CHO diet w/ 1500mL fluid restriction; will add Lino BID for wound healing Discharge Plan Admission Admit Date/Time: 12/22/22 21:28 Primary Reason for Your Visit: Shortness of breath/edema/hypoxia Attending Provider: Lizbet Merritt Primary Care Provider: Hever Otoole Consulting Providers: Aiyana Porter ; Kavita Molina ; Armen King ; Danny Amaro ; Kateryna Flowers Discharge Orders/Prescriptions Prescriptions: New ceftriaxone 2 gram recon soln 2 g IM DAILY Qty: 25 0RF carvedilol 6.25 mg Tablet 6.25 mg PO BIDCM Qty: 0 0RF sucralfate 1 gram Tablet 1 g PO 0700,1100,1600 Qty: 0 0RF sennosides-docusate sodium [Stool Softener-Stimulant Laxat] 8.6-50 mg Tablet 2 tab PO BID PRN PRN (Reason: Constipation) Qty: 0 0RF pantoprazole 40 mg Tablet,Delayed Release (Dr/Ec) 40 mg PO BID Qty: 0 0RF bumetanide 0.5 mg Tablet 0.5 mg PO DAILY Qty: 30 0RF menthol-zinc oxide [Calmoseptine] 0.44-20.6 % Ointment 1 applic topical BID Qty: 0 0RF Protocol: *Topical Application Instructions APPLICATION INSTRUCTIONS: coccyx Humulin N NPH Insulin KwikPen 100 unit/mL (3 mL) Insulin Pen 25 unit subcut 0700,1600 Qty: 0 0RF insulin lispro [Humalog KwikPen Insulin] 100 unit/mL Insulin Pen 15 unit subcut TID Qty: 0 0RF acetaminophen 325 mg Tablet 650 mg PO Q4H PRN PRN (Reason: Fever, pain 1-06/16) Qty: 0 0RF atorvastatin 20 mg Tablet 20 mg PO QHS Qty: 0 0RF insulin lispro [Humalog KwikPen Insulin] 100 unit/mL Insulin Pen See Protocol subcut ACHS Qty: 0 0RF Protocol: 3. Sliding Scale Insulin Med Dosing Condition: 150-189 mg/dl = 1 unit Condition: 190-229 mg/dl = 2 units Condition: 230-269 mg/dl = 3 units Condition: 270-309 mg/dl = 4 units Condition: 310-349 mg/dl = 5 units Condition: 350-399 mg/dl = 6 units Condition: 400-449 mg/dl = 7 units Condition: Greater than 449 call physician Protocol Text: - Use for Total Daily Dose of Insulin 37-55 units - Obsese, infected, or steroid patients MEDIUM DOSING ALGORITHIM Continued aspirin [Adult Low Dose Aspirin] 81 mg tablet,delayed release (DR/EC) 81 mg PO DAILY loratadine [Allergy Relief (loratadine)] 10 mg tablet 10 mg PO DAILY ascorbic acid (vitamin C) 1,000 mg capsule 1 g PO BID ICaps AREDS [id number] capsule 1 cap PO BID Kerendia 10 mg tablet 10 mg PO DAILY losartan 50 mg tablet 50 mg PO DAILY amlodipine 5 mg tablet 5 mg PO QHS glucosamine-chondroitin [Osteo Bi-Flex] 250-200 mg Tablet 2 tab PO DAILY gabapentin 300 mg Tablet 300 mg PO DAILY ezetimibe 10 mg tablet 10 mg PO QHS Humalog Mix 50-50 KwikPen 100 unit/mL (50-50) insulin pen 50 unit subcut BID albuterol sulfate 0.63 mg/3 mL Solution For Nebulization 0.63 mg INHALATION Q6H PRN (Reason: Shortness Of Breath Or Wheezing) ferrous sulfate 325 mg (65 mg iron) Tablet 325 mg PO TID cholecalciferol (vitamin D3) 50 mcg (2,000 unit) capsule 50 mcg PO DAILY Discontinued omeprazole 20 mg Capsule,Delayed Release(Dr/Ec) 20 mg PO DAILY piperacillin-tazobactam 3.375 gram recon soln 3.375 g IV Q12H 40 Days Qty: 80 0RF Rx Instructions: stop date 01/14/23 dx: foot osteo weekly bmp, cbc, esr, and vanc trough. Fax to [phone] vancomycin in dextrose 5 % 1 gram/200 mL Piggyback 1,000 mg IV Q24H 40 Days Qty: 40 0RF Rx Instructions: stop date 01/14/23 dx: foot osteo weekly bmp, cbc, esr, and vanc trough. Fax to [phone] dulaglutide 1.5 mg/0.5 mL Pen Injector 1.5 mg SUBCUT QWEEK Referrals / Follow Up: Hector Monroe MD [Med Staff - Active Staff] - Within 1 Month Don Keith DPM [Med Staff - Active Staff] - 01/07/23 Sage Hedrick MD [Med Staff - Consulting] - Within 1 Month Hever Otoole DO [Primary Care Provider] - Within 1 Month Arjun Mcintosh DO [Med Staff - Active Staff] - Within 1 Month Disposition Disposition (needs filled in before D/C Order can be placed): Custodial Facility
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
--- NOTE | 2022-12-29 12:34 | CASEMGMT ---
KRIS spoke with patient and her sister will transport her back to [facility]. Await orders and COVID test. Marylin Douglas WOOD LATHE OPERATOR RYNE
--- NOTE | 2022-12-29 12:46 | WOUNDNOTE ---
wound photo: right plantar foot
--- NOTE | 2022-12-29 12:46 | WOUNDNOTE ---
wound photo: right lateral foot
--- NOTE | 2022-12-29 13:14 | CASEMGMT ---
KRIS sent orders and COVID test to [facility]. Patient's sister will transport patient back to [facility]. Plan: Return to [facility] under skilled level of care. Patient's sister transported patient via private vehicle. Marylin MICHELE
--- NOTE | 2022-12-29 13:52 | NURSING ---
Report called to Caro at [facility] in [place]. Patient's sister will be transporting patient.
--- NOTE | 2022-12-29 14:13 | PCM.PN.ID ---
Physical Exam Narrative Feeling well, discharge planned, no fever, no n/v/d. Const alert and no apparent distress General Appearance: cooperative Resp normal air movement and clear to auscultation bilaterally Cardio regular rate and regular rhythm GI soft to palpation, non-tender and non-distended Skin Skin Narrative: foot wrapped ID ID: Route of nutrition/ use of supplements: [] Nutritional Intake: [] IV Site: [] Alas Catheter: [] Assessment & Plan Assessment/Plan (1) CKD (chronic kidney disease): (2) Osteomyelitis of foot, right, acute: PLAN: R foot osteo and abscess, taken to OR for I&D by Dr. Keith 12/03/22.? Surg cx with strep x2, MS-CoNS, corynebacter.? Discharged on vanc/zosyn for 6 weeks iv abx, stop date 01/14/23. Changed to ceftriaxone given final cx results; this will also be easier on her kidneys. Same stop date 01/14/23. Will follow. ID followup as needed. Wrote for abx and weekly labs.
== END 2022-12-29 14:28 | disposition skilled nursing facility (03) | DRG 291 ==
LOC: ED 19:34 → PCU 21:16
PROVIDERS: Internal Medicine Gastroenterology; Nurse Practitioner Adult Health; Student in an Organized Health Care Education/Training Program; Admitting Provider Family Medicine; Emergency Provider Emergency Medicine; PCP Family Medicine; Visit Provider Internal Medicine
PROC: 0DJ08ZZ Inspection of Upper Intestinal Tract, Via Natural or Artificial Opening Endoscopic (ICD-10-PCS; CPT 43235; principal; 2022-12-26 12:55)
DX: I13.0 Hypertensive heart and chronic kidney disease with heart failure and stage 1 through stage 4 chronic kidney disease, or unspecified chronic kidney disease (principal); N17.0 Acute kidney failure with tubular necrosis; K25.4 Chronic or unspecified gastric ulcer with hemorrhage; I50.23 Acute on chronic systolic (congestive) heart failure; K31.1 Adult hypertrophic pyloric stenosis; L97.402 Non-pressure chronic ulcer of unspecified heel and midfoot with fat layer exposed; M86.8X7 Other osteomyelitis, ankle and foot; N18.4 Chronic kidney disease, stage 4 (severe); L02.611 Cutaneous abscess of right foot; E11.21 Type 2 diabetes mellitus with diabetic nephropathy; D50.9 Iron deficiency anemia, unspecified; E11.22 Type 2 diabetes mellitus with diabetic chronic kidney disease; E11.42 Type 2 diabetes mellitus with diabetic polyneuropathy; E11.621 Type 2 diabetes mellitus with foot ulcer; E78.5 Hyperlipidemia, unspecified; K21.9 Gastro-esophageal reflux disease without esophagitis; K44.9 Diaphragmatic hernia without obstruction or gangrene; I34.0 Nonrheumatic mitral (valve) insufficiency; K29.50 Unspecified chronic gastritis without bleeding; E55.9 Vitamin D deficiency, unspecified; Z80.0 Family history of malignant neoplasm of digestive organs; Z79.82 Long term (current) use of aspirin; R09.02 Hypoxemia; N26.1 Atrophy of kidney (terminal); E66.9 Obesity, unspecified; Z68.38 Body mass index [BMI] 38.0-38.9, adult
CPT/HCPCS: 36415; 36592; 71046; 80048; 80053; 80061; 80202; 81001; 82274; 82728; 82962; 83540; 83550; 83735; 83880; 84443; 84484; 85025; 85610; 85730; 87426; 93005; 93306; 93970; 94668; 97110; 97116; 97162; 97166; 97530; 97535; 97802; 99252; 99285; J7050; J7120; A4216; G0463; J0696; J1940; J2405

== ENCOUNTER → 2023-06-02 | Outpatient (CLI) | payer MEDICARE, SELFPAY | END | disposition home or self-care (01) | PROVIDERS: PCP Family Medicine; Visit Provider Podiatrist | DX: L97.512 Non-pressure chronic ulcer of other part of right foot with fat layer exposed (principal) | CPT/HCPCS: 87070; 87075; 87077; 87186; 87205 ==

== ENCOUNTER → 2023-06-23 | Outpatient (CLI) | payer MEDICARE, SELFPAY ==
[2023-06-23 11:34] LABS: Erythrocyte Sedimentation Rate 21 mm/hr (0-30)
[2023-06-23 11:36] LABS: Absolute Lymphocyte Count 2.74 X10^3/uL (0.83-4.51); Basophil# 0.05 X10^3/uL; Basophil% 0.6 % (0-1); Eosinophil# 0.19 X10^3/uL; Eosinophils% 2.4 % (0-5); Hematocrit 35.9 % (37-47); Lymphocyte # 2.74 X10^3/ul (0.83-4.51); Lymphocyte % 35.3 % (19-41); Mean Corp Hgb Conc 30.6 g/dL (32-36); Mean Corpuscular Hgb 28.3 pg (27.0-32.0); Mean Corpuscular Volume 92.3 fL (81-99); Mean Platelet Vol. 10.8 fl (6.2-12.0); Monocyte# 0.72 X10^3/uL; Monocyte% 9.3 % (0-10); NRBC Flagged by Analyzer 0 % (0-5); Neutrophil # 4.03 X10^3/uL (2.7-7.7); Platelet Count 309 K/mm3 (150-450); RBC Distribution Width CV 12.3 % (11.6-14.6); RBC Distribution Width SD 41.3 fl (35.1-43.9); Red Blood Count 3.89 M/mm3 (4.2-5.4); White Blood Count 7.8 K/mm3 (4.4-11.0)
[2023-06-23 11:44] LABS: Hemoglobin A1c 12.3 % (3.8-5.6)
[2023-06-23 12:14] LABS: ALB/GLOB Ratio 0.8 RATIO (0.9-2.4); AST(SGOT) 14 U/L (15-37); Alanine Aminotransfer ALT/SGPT 26 U/L (13-56); Albumin, Serum 3.1 g/dL (3.2-5.0); Alkaline Phosphatase 136 U/L (45-117); Anion Gap 7 (5-15); BUN 70 mg/dL (7-18); BUN/Creat Ratio 31.7 RATIO (10-20); CRP < 2.90 mg/L (0.0-3.0); Calcium,Total 9.1 mg/dL (8.5-10.1); Chloride 105 mmol/L (98-107); Creatinine, Serum 2.21 mg/dL (0.55-1.02); EST Glomerular Filtration Rate 24 mL/min (>60); Est Glom Filt Rate - Afr Amer 28 mL/min (>60); Globulin 3.8 g/dL (2.2-4.2); Glucose 377 mg/dL (74-106); Potassium 4.5 mmol/L (3.5-5.1); Prealbumin 21.7 mg/dL (20.0-40.0); Protein, Total 6.9 g/dL (6.4-8.2); Sodium Level 137 mmol/L (136-145)
== END | disposition home or self-care (01) ==
LOC: LAB 09:52
PROVIDERS: PCP Family Medicine; Visit Provider Podiatrist
DX: E11.42 Type 2 diabetes mellitus with diabetic polyneuropathy (principal)
CPT/HCPCS: 36415; 80053; 83036; 84134; 85025; 85652; 86140

== ENCOUNTER 2023-07-21 12:36 | Inpatient (IN) | payer MEDICARE, SELFPAY ==
[2023-07-21 12:37] VITALS: BP 104/53; PULSE 87; RESP 12; TEMP 36.3; O2SAT 100
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
--- NOTE | 2023-07-21 13:40 | RAD_ITS ---
STUDY: X-RAY - RIGHT FOOT CLINICAL: Female, 67 years old. Lateral ulcer question osteomyelitis TECHNIQUE: 3 view(s) of the foot. COMPARISON: Comparison is made with prior study dated December 01, 2022. FINDINGS: There is a plantar calcaneal spur. Charcot''s deformity of the tarsal bones with subluxation. Normal metatarsi. There is degenerative arthrosis of the metatarsophalangeal joint of the hallux . Normal tibial and fibular sesamoid bones. Normal interphalangeal joint of the great toe. Normal phalanges of the great toe. Destruction at the base of the fifth metatarsal with overlying soft tissue swelling and ulceration suggestive of osteomyelitis. Normal interphalangeal joints and phalanges of the lesser toes. Soft tissue swelling. RAD/Foot min 3 Views IMPRESSION: Charcot''s deformity of the midfoot. Destruction at the base of the fifth metatarsal with overlying soft tissue swelling and ulceration suggestive of osteomyelitis. Electronically Signed: Ibrahima Gutierrez MD at 13:58 EST ,
[2023-07-21 13:47] LABS: Absolute Lymphocyte Count 2.42 X10^3/uL (0.83-4.51); Absolute Neutrophil Count 5.1 X10^3/uL (2.0-7.7); Basophil# 0.06 X10^3/uL; Basophil% 0.7 % (0-1); Eosinophil# 0.22 X10^3/uL; Eosinophils% 2.6 % (0-5); Hemoglobin 11.4 g/dL (12.0-15.0); Lymphocyte # 2.42 X10^3/ul (0.83-4.51); Lymphocyte % 28.5 % (19-41); Mean Corp Hgb Conc 31.7 g/dL (32-36); Mean Corpuscular Hgb 28.3 pg (27.0-32.0); Mean Corpuscular Volume 89.3 fL (81-99); Monocyte% 8.2 % (0-10); NRBC Flagged by Analyzer 0 % (0-5); Neutrophil # 5.06 X10^3/uL (2.7-7.7); Neutrophil % 59.6 % (47-70); Platelet Count 325 K/mm3 (150-450); RBC Distribution Width CV 12.6 % (11.6-14.6); RBC Distribution Width SD 41.1 fl (35.1-43.9); Red Blood Count 4.03 M/mm3 (4.2-5.4); White Blood Count 8.5 K/mm3 (4.4-11.0)
[2023-07-21 13:51] LABS: Erythrocyte Sedimentation Rate 43 mm/hr (0-30); Macrocytosis 8.5
[2023-07-21 13:57] LABS: Anion Gap 6 (5-15); BUN 62 mg/dL (7-18); BUN/Creat Ratio 26.2 RATIO (10-20); CRP < 2.90 mg/L (0.0-3.0); Calcium,Total 9.2 mg/dL (8.5-10.1); Chloride 109 mmol/L (98-107); Creatinine, Serum 2.37 mg/dL (0.55-1.02); EST Glomerular Filtration Rate 22 mL/min (>60); Est Glom Filt Rate - Afr Amer 26 mL/min (>60); Glucose 128 mg/dL (74-106); Potassium 4.4 mmol/L (3.5-5.1); Sodium Level 140 mmol/L (136-145)
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
[2023-07-21 15:46] VITALS: BP 129/88; PULSE 84; RESP 16; O2SAT 96
[2023-07-21 16:00] LABS: Bedside Glucose 73 mg/dL (74-106)
[2023-07-21 18:45] VITALS: BMI 33.9
[2023-07-21 18:52] VITALS: BP 142/80; PULSE 80; RESP 18; TEMP 36.4; O2SAT 100
[2023-07-21 21:35] VITALS: O2SAT 99
[2023-07-21] MEDS: Piperacil/Tazobactam 3.375 GM in 0.9% Normal Saline (50mL MB+) 50 ML IV (23:32)
[2023-07-21] MEDS: Vancomycin HCl 2,000 MG in 0.9% Normal Saline (500mL Bag) 500 ML 250 MG IV (23:32)
[2023-07-21] MEDS: Carvedilol 6.25 MG Tablet PO (23:56)
[2023-07-21] MEDS: Ezetimibe 10 MG Tablet PO (23:56)
[2023-07-21] MEDS: Gabapentin 300 MG Capsule PO (23:57)
[2023-07-22] VITALS: BP 135/73; PULSE 79; RESP 16; TEMP 36.9; O2SAT 100
[2023-07-22] MEDS: amLODIPine 5 MG Tablet PO
[2023-07-22] MEDS: Insulin Lispro 100 UNIT/ML INSULN.PEN SC ×4 (00:02→22:23)
[2023-07-22 00:52] LABS: Bedside Glucose 244 mg/dL (74-106)
--- NOTE | 2023-07-22 01:30 | PCM.RX.CS ---
Consult Antibiotic Management Pharmacy has been consulted to manage selected antiobiotic: Vancomycin Type of Intervention Type of Consult: New start Suspected Infection Suspected Infection: Osteomyelitis Labs Labs: Sodium 140 mmol/L (136-145) 07/21/23 13:30 Potassium 4.4 mmol/L (3.5-5.1) 07/21/23 13:30 Chloride 109 mmol/L (98-107) H 07/21/23 13:30 Carbon Dioxide 25.0 mmol/L (21.0-32.0) 07/21/23 13:30 Anion Gap 6 (5-15) 07/21/23 13:30 BUN 62 mg/dL (7-18) H 07/21/23 13:30 Creatinine 2.37 mg/dL (0.55-1.02) H 07/21/23 13:30 Est GFR (MDRD) Af Amer 26 mL/min (>60) L 07/21/23 13:30 Est GFR (MDRD) Non-Af 22 mL/min (>60) L 07/21/23 13:30 BUN/Creatinine Ratio 26.2 RATIO (10-20) H 07/21/23 13:30 Glucose 128 mg/dL (74-106) H 07/21/23 13:30 Dosing Weight Weight used for dosin.5 kg Estimated Creatinine Clearance Estimated Creatinine Clearance: 22.28 Goal Trough Goal Trough: 15-20 mcg/mL Pharmacy Plan for Drug Dosing Pharmacy Plan for Drug Dosing: Pharmacy Service will continue to monitor and adjust dosing as required. Follow-Up Labs Follow-Up Labs: Trough: Vancomycin Date/Time Labs Ordered Labs to be done on [date and time ordered]: 07/23/23 @[id number]
[2023-07-22 05:35] VITALS: BMI 33.9
[2023-07-22] MEDS: Piperacil/Tazobactam 3.375 GM in 0.9% Normal Saline (50mL MB+) 50 ML IV ×3 (05:39→20:41)
[2023-07-22 06:00] VITALS: BP 108/55; PULSE 84; RESP 16; TEMP 37.1; O2SAT 96
[2023-07-22] MEDS: Losartan Potassium 50 MG Tablet PO (06:24)
[2023-07-22] MEDS: Aspirin E.C. 81 MG Tablet PO (06:24)
[2023-07-22 06:38] LABS: Bedside Glucose 269 mg/dL (74-106)
[2023-07-22 06:46] LABS: Absolute Lymphocyte Count 1.14 X10^3/uL (0.83-4.51); Absolute Neutrophil Count 7.4 X10^3/uL (2.0-7.7); Basophil# 0.05 X10^3/uL; Basophil% 0.5 % (0-1); Eosinophil# 0.18 X10^3/uL; Eosinophils% 1.9 % (0-5); Hematocrit 34.1 % (37-47); Hemoglobin 10.7 g/dL (12.0-15.0); Lymphocyte # 1.14 X10^3/ul (0.83-4.51); Lymphocyte % 12.2 % (19-41); Mean Corp Hgb Conc 31.4 g/dL (32-36); Mean Corpuscular Hgb 28.5 pg (27.0-32.0); Mean Corpuscular Volume 90.7 fL (81-99); Mean Platelet Vol. 10.3 fl (6.2-12.0); Monocyte# 0.59 X10^3/uL; Monocyte% 6.3 % (0-10); NRBC Flagged by Analyzer 0 % (0-5); Neutrophil # 7.35 X10^3/uL (2.7-7.7); Neutrophil % 78.7 % (47-70); Platelet Count 349 K/mm3 (150-450); RBC Distribution Width CV 12.6 % (11.6-14.6); Red Blood Count 3.76 M/mm3 (4.2-5.4); White Blood Count 9.4 K/mm3 (4.4-11.0)
[2023-07-22 07:20] LABS: ALB/GLOB Ratio 0.9 RATIO (0.9-2.4); AST(SGOT) 18 U/L (15-37); Alanine Aminotransfer ALT/SGPT 27 U/L (13-56); Albumin, Serum 2.9 g/dL (3.2-5.0); Alkaline Phosphatase 106 U/L (45-117); Anion Gap 6 (5-15); BUN 54 mg/dL (7-18); BUN/Creat Ratio 24.8 RATIO (10-20); Calcium,Total 8.6 mg/dL (8.5-10.1); Chloride 109 mmol/L (98-107); Creatinine, Serum 2.18 mg/dL (0.55-1.02); EST Glomerular Filtration Rate 24 mL/min (>60); Est Glom Filt Rate - Afr Amer 29 mL/min (>60); Globulin 3.4 g/dL (2.2-4.2); Glucose 260 mg/dL (74-106); Potassium 4.6 mmol/L (3.5-5.1); Protein, Total 6.3 g/dL (6.4-8.2); Sodium Level 137 mmol/L (136-145)
[2023-07-22 07:30] VITALS: BP 126/61; PULSE 89; RESP 16; TEMP 36.6; O2SAT 97
--- NOTE | 2023-07-22 07:35 | NURSING ---
Patient off unit for Stress test at this time.
--- NOTE | 2023-07-22 08:10 | PN.HOSP_ITS ---
Reason for Visit Reason for Visit: Diagnoses Other acute osteomyelitis, right ankle and foot (07/21/23) Subjective Subjective No complaints. Objective Data Objective Data Vital Signs: Vital Signs Temp Pulse Resp BP Pulse Ox O2 Del Method 37.1 C 84 16 108/55 L 96 Room Air 07/22/23 06:00 07/22/23 06:00 07/22/23 06:00 07/22/23 06:00 07/22/23 06:00 07/22/23 06:00 Oxygen Delivery Method Room Air Weight: 81.5 kg Body Mass Index (BMI) 33.9 Intake & Output: Intake and Output for Last 24 Hours 07/20/23 07/21/23 07/22/23 23:59 23:59 23:59 Intake Total 590 / 590 Balance 590 / 590 Lab / Micro Data 07/22/23 06:20 07/22/23 06:20 Labs: Laboratory Results - last 24 hr 07/21/23 13:30: WBC 8.5, RBC 4.03 L, Hgb 11.4 L, Hct 36.0 L, MCV 89.3, MCH 28.3, MCHC 31.7 L, RDW Std Deviation 41.1, RDW Coeff of Steven 12.6, Plt Count 325, MPV 10.0, Immature Gran % (Auto) 0.400, Neut % (Auto) 59.6, Lymph % (Auto) 28.5, [place] % (Auto) 8.2, Eos % (Auto) 2.6, Baso % (Auto) 0.7, Absolute Neuts (auto) 5.1, Absolute Lymphs (auto) 2.42, Nucleated RBC % 0, Macrocytosis 8.5, ESR 43 H, Sodium 140, Potassium 4.4, Chloride 109 H, Carbon Dioxide 25.0, Anion Gap 6, BUN 62 H, Creatinine 2.37 H, Est GFR (MDRD) Af Amer 26 L, Est GFR (MDRD) Non-Af 22 L , BUN/Creatinine Ratio 26.2 H, Glucose 128 H, Calcium 9.2, Magnesium 2.0, C- React Prot Ext Range < 2.90 07/21/23 15:40: POC Glucose 73 L 07/21/23 21:52: POC Glucose 244 H 07/22/23 06:19: POC Glucose 269 H 07/22/23 06:20: WBC 9.4, RBC 3.76 L, Hgb 10.7 L, Hct 34.1 L, MCV 90.7, MCH 28.5, MCHC 31.4 L, RDW Std Deviation 42.0, RDW Coeff of Steven 12.6, Plt Count 349, MPV 10.3, Immature Gran % (Auto) 0.400, Neut % (Auto) 78.7 H, Lymph % (Auto) 12.2 L, [place] % (Auto) 6.3, Eos % (Auto) 1.9, Baso % (Auto) 0.5, Absolute Neuts (auto) 7.4, Absolute Lymphs (auto) 1.14, Nucleated RBC % 0, Sodium 137, Potassium 4.6, Chloride 109 H, Carbon Dioxide 22.0, Anion Gap 6, BUN 54 H, Creatinine 2.18 H, Estim Creat Clear Calc 18.90, Est GFR (MDRD) Af Amer 29 L, Est GFR (MDRD) Non-Af 24 L, BUN/Creatinine Ratio 24.8 H, Glucose 260 H, Calcium 8.6, Total Bilirubin 0.40, AST 18, ALT 27, Alkaline Phosphatase 106, Total Protein 6.3 L, Albumin 2.9 L, Globulin 3.4, Albumin/Globulin Ratio 0.9 Radiography Diagnostic Testing: Radiology Impression Foot X-Ray 07/21/23 13:40 IMPRESSION: Charcot''s deformity of the midfoot. Destruction at the base of the fifth metatarsal with overlying soft tissue swelling and ulceration suggestive of osteomyelitis. Electronically Signed: Ibrahima Gutierrez MD at 13:58 EST , Physical Exam Const alert and no apparent distress HEENT head/scalp atraumatic Neuro moves all extremities Sensorium / Orientation: awake and alert Psych affect normal Assessment & Plan Assessment/Plan (1) Acute osteomyelitis of right foot: PLAN: Acutely Infected right foot/ankle Diabetic Ulcer with associated Acute osteomyelitis: vanc/zosyn w/ ID consultation, consult JUANJO Rai to the RLE, elevation RLE, request Wound RN consultation, Foot xray showed Charcot's deformit of the midfoot. Destruction of the 4th metatarsal w overlying soft tissue swelling and ulcartion. Stress test with apical hypokinesis, but no reversible ischemia. Medically clear for surgery. PLAN: Plan Chronic conditions: * HFrEF/Cardiomyopathy unclear type: 12/2022 ECHO with EF of 40- 45% with mild to moderate LV dysfunction and anterior apical and distal septal hypokinesis and mild MR. Continue aspirin, amlodipine, butamben, carvedilol, losartan. Saw cards in February 2023 with plans for stress test. Stress test showed fixed apical defect, consistent with possible previous infarctoin. Apical hypokinesia, negative for reversible myocardial infarction. * Chronic normocytic anemia/Fe Deficiency anemia: Admission hemoglobin 11.4, MCV 89.3, baseline hemoglobin more recently 11 range however earlier in 2022 had been 8-9 w/ GI bleed admission as noted, continue to trend. 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 * Chronic Kidney Disease Stage IV: Admission BUN/Cr 62/2.37, baseline renal function appears primarily 1.8-2.2 * Diabetes mellitus type II with chronic neuropathy: Hold oral home regimen, continue home insulin regimen, ADA diet, accu checks w/ ISS, continue gabapentin. * Hypertension: Continue amlodipine, losartan, Coreg, IV Lasix as noted, PRN hydralazine. * Hyperlipidemia: Continue home Zetia regimen, statin intolerant. * Obesity: Weight loss and lifestyle changes encouraged. DVT prophylaxis: Heparin. CODE status: Full Code. Charges/Coding Visit Charges Inpatient E&M: 54476 Subs Hosp L2
[2023-07-22 08:33] LABS: Hemoglobin A1c 12.7 % (3.8-5.6)
--- NOTE | 2023-07-22 08:40 | EKG12_ITS ---
Test Reason : PRE OP Blood Pressure : / mmHG Vent. Rate : 088 BPM Atrial Rate : 088 BPM P-R Int : 156 ms QRS Dur : 082 ms QT Int : 364 ms P-R-T Axes : 044 010 028 degrees QTc Int : 440 ms Normal sinus rhythm Inferior infarct , age undetermined Anterior infarct (cited on or before 13-OCT-2022) Abnormal ECG When compared with ECG of 22-DEC-2022 19:29, Questionable change in initial forces of Anteroseptal leads Confirmed by SARAH DUMONT MD ([id number]), television news video editor KATHLEEN WHITNEY ([id number]) on 07/29/2023 1:00:33 PM Referred By: BETTE Confirmed By:SARAH DUMONT MD
--- NOTE | 2023-07-22 09:20 | WOUNDNOTE ---
wound photo: right lateral foot
--- NOTE | 2023-07-22 09:20 | WOUNDNOTE ---
wound photo: left lateral foot
--- NOTE | 2023-07-22 09:22 | MRI_ITS ---
STUDY: MRI RIGHT MIDFOOT REASON FOR EXAM: Female, 67 years old. Right foot osteomyelitis. TECHNIQUE: Standardized fat and water weighted pulse sequences were obtained in all 3 orthogonal planes. COMPARISON: Right midfoot MRI dated 12/02/2022. FINDINGS: There is been near complete resolution of the previously seen lateral midfoot subcutaneous abscess over the dorsum of the fifth metatarsal bone, now with only residual trace fluid (coronal T2 series 5 image 16). There is chronic Charcot arthropathy of the midfoot with interval improvement of the previously seen marrow edema in the midfoot. There are unchanged mild to moderate subluxations of the second through fifth tarsometatarsal joints. There is a stable ununited fracture in the proximal shaft of the fifth metatarsal bone with persistent mild residual marrow edema on both sides of the ununited fracture (sagittal STIR series 4 images 24-25). There is a persistent ulcer along the plantar midfoot region with adjacent skin thickening. There is moderate subcutaneous soft tissue edema along the dorsum of the foot. Normal Lisfranc ligament. The tendons are unremarkable. There is diffuse and significant atrophy of the intrinsic muscles of the foot consistent with a peripheral neuropathy. MRI/Lower Ext/No Jt/w/o IMPRESSION: Near complete resolution of the previously seen lateral midfoot subcutaneous abscess over the dorsum of the fifth metatarsal bone, now with only residual trace fluid. Chronic Charcot arthropathy of the midfoot with interval improvement of the previously seen marrow edema in the midfoot. Unchanged mild to moderate subluxations of the second through fifth tarsometatarsal joints. Stable ununited fracture in the proximal shaft of the fifth metatarsal bone with persistent mild residual marrow edema on both sides of the ununited fracture. Persistent ulcer along the plantar midfoot region with adjacent skin thickening. Moderate subcutaneous soft tissue edema along the dorsum of the foot. Electronically Signed: Davide Merritt MD at 14:33 EST ,
[2023-07-22 10:41] LABS: M R Staph aureus DNA By PCR Negative (Negative); Probe Check PASS; Specimen Processing Control PASS; Staph aureus DNA By PCR NEGATIVE (Negative)
[2023-07-22] MEDS: Bumetanide 0.5 MG Tablet PO (11:35)
[2023-07-22] MEDS: Ascorbic Acid 500 MG Tablet 1000 MG PO ×2 (11:36→17:57)
[2023-07-22] MEDS: Loratadine 10 MG Tablet PO (11:37)
[2023-07-22] MEDS: Carvedilol 6.25 MG Tablet PO ×2 (11:37→17:57)
[2023-07-22] MEDS: Pantoprazole Sodium 20 MG Tablet PO (11:39)
[2023-07-22] MEDS: Acetaminophen 325 MG Tablet 650 MG PO (11:46)
[2023-07-22 11:55] LABS: Bedside Glucose 360 mg/dL (74-106)
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
[2023-07-22 12:00] VITALS: BP 123/70; PULSE 90; RESP 16; TEMP 36.6; O2SAT 99
--- NOTE | 2023-07-22 12:16 | NURSING ---
Patient off unit to MRI at this time.
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
--- NOTE | 2023-07-22 15:08 | STRESSREP ---
Stress Test Report Pharmacologic/Lexiscan myocardial perfusion stress test. Indication; 67-year-old patient this patient has mild to moderate LV systolic dysfunction by echocardiogram with anteroapical and distal septal hypokinesia. Patient is scheduled for Lexiscan sestamibi for preop evaluation Patient had diabetic foot ulcer/wound Stress protocol: Resting EKG demonstrates.; Age-indeterminate inferior and anterior VT with Q waves noted in the inferior lead And poor R wave progression across the chest lead. 0.4 mg of regadenoson was infused per usual protocol followed by rapid intravenous saline flush injection continuous EKG monitoring was performed. The maximum heart rate attained was 105 bpm which was 68% of maximum predicted heart . Stress EKG showed[, no significant change from the resting EKG, with maximum heart rate of 105 bpm. Arrhythmia: No arrhythmia demonstrated Symptoms: Patient had no symptoms of chest pain Blood pressure at rest: 122/70 mmHg blood pressure at the end of stress: 122 over 70 mm mid Myocardial perfusion protocol. 11.8mCi ]of Technetium 99m Sestamibi was injected at rest. [ 0.4 mg ]of Regadenoson was infused per usual protocol peak infusion[34 mCi ]of Technetium 99m sestamibi was injected. Stress images were obtained stress and rest images were reconstructed and compared in the short axis vertical and horizontal long axis. Gated images were also obtained Perfusion SPECT analysis: Review of the images demonstrate reduced apical tracer uptake most at rest and with maximal stress, consistent with fixed defect With no evidence of reversible myocardial ischemia. Gated SPECT analysis: The gated ejection fraction is 54%. Apical hypokinesia Conclusion: Fixed apical defect, consistent with possible previous infarction Apical hypokinesia as described negative Lexiscan sestamibi myocardial perfusion study for reversible myocardial ischemia Ejection fraction 54% with mild apical hypokinesia in comparison to the rest of the myocardium Kavita Molina MD,FACC,[facility]
--- NOTE | 2023-07-22 15:22 | CASEMGMT ---
ROSELYN GUTIERREZ Assessment: Face to Face with pt for initial transition planning/care coordination assessment. ROSELYN GUTIERREZ introduced self and role at [facility], pt voices understanding and consents to assessment. Pt is A&O x4 and answers all questions appropriately at this time. Pt sitting up in chair in no distress. Pt states she is looking forward to being able to eat again. Care providers, pharmacy, and demographics verified/updated. Admitting Dx:diabetic ulcer/osteomyelitis PCP:Sydnie Specialists:Inna, yoni; jose g Chavira; NELSON, cardio [facility]acy:[facility] Insurance:[employer] [place] Prescription Benefit: yes LNOK:Maia Borja, Living Arrangements: Pt lives alone in a single story home with 4 steps to enter with a rail. Pt reports she is I in ADL's and denies concerns at home. Transportation: Pt sister provides transportation. DME:bath bench, cane, walking stick, rollator, BGM and insulin with sufficient supplies. HHC/SNF:[facility] HHC in the past and [facility] Pt states no concerns with going home at time of dc. Pt states she feels she can go home after this hospital stay. States she is supposed to have an upcoming surgery that will require her to be in a SNF for 3 mos but she does not want to be in a facility over the holidays. Pt sister perform dressing changes for her and she sees weekly in the office for same. 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 Pt states no further concerns/needs. CM to follow. Advised pt to ask CM if any further question/concerns/needs arise, voices understanding. Pt Goal:Home vs Home with HHC Plan:Home vs Home with HHC
[2023-07-22 16:28] LABS: Bedside Glucose 177 mg/dL (74-106)
[2023-07-22 22:10] VITALS: BP 95/64; PULSE 79; RESP 16; TEMP 36.9; O2SAT 95
[2023-07-22] MEDS: Gabapentin 300 MG Capsule PO (22:22)
[2023-07-22] MEDS: Ezetimibe 10 MG Tablet PO (22:22)
[2023-07-22 22:51] LABS: Bedside Glucose 171 mg/dL (74-106)
[2023-07-23] VITALS (11 sets, daily range): BP systolic 98–130; BP diastolic 51–82; PULSE 84–105; RESP 16–17; TEMP 36.7–37.2; O2SAT 94–98; BMI 33.8
[2023-07-23] MEDS: Vancomycin HCl 750 MG in 0.9% Normal Saline (250mL Bag) 250 ML 250 MG IV (00:56)
[2023-07-23] MEDS: Piperacil/Tazobactam 3.375 GM in 0.9% Normal Saline (50mL MB+) 50 ML IV ×3 (06:21→21:23)
[2023-07-23 06:28] LABS: Absolute Lymphocyte Count 0.81 X10^3/uL (0.83-4.51); Basophil# 0.05 X10^3/uL; Basophil% 0.6 % (0-1); Eosinophil# 0.27 X10^3/uL; Eosinophils% 3.5 % (0-5); Hematocrit 32.9 % (37-47); Hemoglobin 10.3 g/dL (12.0-15.0); Lymphocyte # 0.81 X10^3/ul (0.83-4.51); Lymphocyte % 10.5 % (19-41); Mean Corp Hgb Conc 31.3 g/dL (32-36); Mean Corpuscular Hgb 28.2 pg (27.0-32.0); Mean Corpuscular Volume 90.1 fL (81-99); Mean Platelet Vol. 10.4 fl (6.2-12.0); Monocyte% 7.8 % (0-10); NRBC Flagged by Analyzer 0 % (0-5); Neutrophil # 5.98 X10^3/uL (2.7-7.7); Neutrophil % 77.2 % (47-70); Platelet Count 295 K/mm3 (150-450); RBC Distribution Width CV 12.6 % (11.6-14.6); RBC Distribution Width SD 41.1 fl (35.1-43.9); Red Blood Count 3.65 M/mm3 (4.2-5.4); White Blood Count 7.7 K/mm3 (4.4-11.0)
[2023-07-23 06:36] LABS: Prothrombin Time (Protime)PT. 13.3 SECONDS (11.7-14.9)
[2023-07-23 06:38] LABS: Partial Thromboplast Time 27.3 Seconds (24.1-36.2)
[2023-07-23 06:59] LABS: Anion Gap 8 (5-15); BUN 57 mg/dL (7-18); BUN/Creat Ratio 24.1 RATIO (10-20); Calcium,Total 8.2 mg/dL (8.5-10.1); Chloride 111 mmol/L (98-107); Creatinine, Serum 2.37 mg/dL (0.55-1.02); EST Glomerular Filtration Rate 22 mL/min (>60); Est Glom Filt Rate - Afr Amer 26 mL/min (>60); Estimated Creatinine Clearance 17.38 ml/min; Glucose 196 mg/dL (74-106); Potassium 4.6 mmol/L (3.5-5.1); Sodium Level 140 mmol/L (136-145)
--- NOTE | 2023-07-23 08:00 | PN.HOSP_ITS ---
Reason for Visit Reason for Visit: Diagnoses Type 2 diabetes mellitus with diabetic polyneuropathy (07/21/23) Type 2 diabetes mellitus with other skin complications (07/21/23) Local infection of the skin and subcutaneous tissue, unspecified (07/21/23) Non-pressure chronic ulcer of other part of right foot with necrosis of bone (07/21/23) Other acute osteomyelitis, right ankle and foot (07/21/23) Subjective Subjective No events overnight. Objective Data Objective Data Vital Signs: Vital Signs Temp Pulse Resp BP Pulse Ox O2 Del Method 37.2 C 105 H 16 130/82 H 97 Room Air 07/23/23 06:00 07/23/23 06:00 07/23/23 06:00 07/23/23 06:00 07/23/23 06:00 07/23/23 06:00 Oxygen Delivery Method Room Air Weight: 81.5 kg Body Mass Index (BMI) 33.9 Intake & Output: Intake and Output for Last 24 Hours 07/21/23 07/22/23 07/23/23 23:59 23:59 23:59 Intake Total 1077.71 / 1077.71 315 / 315 Balance 1077.71 / 1077.71 315 / 315 Lab / Micro Data 07/23/23 05:35 07/23/23 05:35 Labs: Laboratory Results - last 24 hr 07/22/23 06:20: Hemoglobin A1c 12.7 H 07/22/23 07:15: S.aureus Protein A PCR NEGATIVE, MRSA (PCR) Negative 07/22/23 11:30: POC Glucose 360 H 07/22/23 16:05: POC Glucose 177 H 07/22/23 22:21: POC Glucose 171 H 07/23/23 05:35: WBC 7.7, RBC 3.65 L, Hgb 10.3 L, Hct 32.9 L, MCV 90.1, MCH 28.2, MCHC 31.3 L, RDW Std Deviation 41.1, RDW Coeff of Steven 12.6, Plt Count 295, MPV 10.4, Immature Gran % (Auto) 0.400, Neut % (Auto) 77.2 H, Lymph % (Auto) 10.5 L, [place] % (Auto) 7.8, Eos % (Auto) 3.5, Baso % (Auto) 0.6, Absolute Neuts (auto) 6.0, Absolute Lymphs (auto) 0.81 L, Nucleated RBC % 0, PT 13.3, INR 1.0, APTT 27.3, Sodium 140, Potassium 4.6, Chloride 111 H, Carbon Dioxide 21.0, Anion Gap 8, BUN 57 H, Creatinine 2.37 H, Estim Creat Clear Calc 17.38, Est GFR (MDRD) Af Amer 26 L, Est GFR (MDRD) Non-Af 22 L, BUN/Creatinine Ratio 24.1 H, Glucose 196 H, Calcium 8.2 L Micro: Microbiology 07/22/23 07:15 Wound - Right Foot Gram Stain - Final Radiography Diagnostic Testing: Radiology Impression Lower Extremity MRI 07/22/23 09:22 IMPRESSION: Near complete resolution of the previously seen lateral midfoot subcutaneous abscess over the dorsum of the fifth metatarsal bone, now with only residual trace fluid. Chronic Charcot arthropathy of the midfoot with interval improvement of the previously seen marrow edema in the midfoot. Unchanged mild to moderate subluxations of the second through fifth tarsometatarsal joints. Stable ununited fracture in the proximal shaft of the fifth metatarsal bone with persistent mild residual marrow edema on both sides of the ununited fracture. Persistent ulcer along the plantar midfoot region with adjacent skin thickening. Moderate subcutaneous soft tissue edema along the dorsum of the foot. Electronically Signed: Davide Merritt MD at 14:33 EST , Physical Exam Const alert HEENT head/scalp atraumatic Neuro moves all extremities Sensorium / Orientation: awake and alert Psych affect normal Assessment & Plan Assessment/Plan (1) Acute osteomyelitis of right foot: PLAN: Acutely Infected right foot/ankle Diabetic Ulcer with associated Acute osteomyelitis: vanc/zosyn w/ ID consultation, consult JUANJO Rai to the RLE, elevation RLE, request Wound RN consultation, Foot xray showed Charcot's deformit of the midfoot. Destruction of the 4th metatarsal w overlying soft tissue swelling and ulcartion. Stress test with apical hypokinesis, but no reversible ischemia. Medically clear for surgery (informed Dr. Inna of clearance on 07/22) PLAN: Plan Chronic conditions: * HFrEF/Cardiomyopathy unclear type: 12/2022 ECHO with EF of 40- 45% with mild to moderate LV dysfunction and anterior apical and distal septal hypokinesis and mild MR. Continue aspirin, amlodipine, butamben, carvedilol, losartan. Saw cards in February 2023 with plans for stress test. Stress test showed fixed apical defect, consistent with possible previous infarctoin. Apical hypokinesia, negative for reversible myocardial infarction. * Chronic normocytic anemia/Fe Deficiency anemia: Admission hemoglobin 11.4, MCV 89.3, baseline hemoglobin more recently 11 range however earlier in 2022 had been 8-9 w/ GI bleed admission as noted, continue to trend. 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 * Chronic Kidney Disease Stage IV: Admission BUN/Cr 62/2.37, baseline renal function appears primarily 1.8-2.2 * Diabetes mellitus type II with chronic neuropathy: Hold oral home regimen, continue home insulin regimen, ADA diet, accu checks w/ ISS, continue gabapentin. * Hypertension: Continue amlodipine, losartan, Coreg, IV Lasix as noted, PRN hydralazine. * Hyperlipidemia: Continue home Zetia regimen, statin intolerant. * Obesity: Weight loss and lifestyle changes encouraged. DVT prophylaxis: Heparin. CODE status: Full Code. Charges/Coding Visit Charges Inpatient E&M: 76263 Subs Hosp L2
[2023-07-23 08:35] LABS: Bedside Glucose 190 mg/dL (74-106)
--- NOTE | 2023-07-23 09:15 | WOUNDNOTE ---
Pt scheduled for surgery today. will leave dressings in place.
--- NOTE | 2023-07-23 10:12 | PCM.PN.ID ---
Physical Exam Narrative Feeling ok, no pain in foot, no fever, no n/v/d Const alert and no apparent distress General Appearance: cooperative Resp normal air movement and clear to auscultation bilaterally Cardio regular rate and regular rhythm GI soft to palpation, non-tender and non-distended Skin Skin Narrative: L foot wrapped ID ID: Route of nutrition/ use of supplements: [] Nutritional Intake: [] IV Site: [] Alas Catheter: [] Assessment & Plan Assessment/Plan (1) Acute osteomyelitis of right foot: PLAN: Wound cx pending, pending bcx x2. MRI done. OR planned with Dr. Keith. Cont empiric vanc/zosyn. Will follow (2) Diabetic neuropathy: QUALIFIERS: Diabetes mellitus type: type 2 Diabetes mellitus complication detail: diabetic polyneuropathy Qualified Code(s): E11.42 - Type 2 diabetes mellitus with diabetic polyneuropathy
[2023-07-23] MEDS: Lactated Ringers 1,000 ML 15 ML IV (11:55)
--- NOTE | 2023-07-23 12:30 | BON_PTH ---
PATIENT: HAIDER PARISI LOC: 3 U#:[id number] AGE/SX: 67/F [place] [facility] [place]: Dr. Jim Mendez DO : 1955 BED: 1 DIS: 07/24/2023 SPEC #: [id number] RECD: 07/23/23 13:45 STATUS: EDIL REQ #: [id number] MARGO: 07/23/23 12:[address]: Don Keith DEPT: SURGICAL PATHOLOGY RECD BY: Clara Henderson ENTERED: 07/24/23 09:26 SP TYPE: Bone OTHR DR: MD Dr. Don Rome, DPM DO Dr. Hever Santa DO Dr. Robert Leininger, MD Tissues: Toe, NOS Procedures: Decalcification bone/plaque Surgery Specimen Level V Comments: @ Ordering doctor for DEC edited from to @ by JYOTHI at 07/27/23 1123 @ Ordering doctor for SUIV edited from to @ by JYOTHI at 07/27/23 1123 @ Submitting doctor edited from to @ by JYOTHI at 07/27/23 1123 HEADER OPERATION: Fifth metatarsal excision base and delayed primary wound closure PRE-OP DIAGNOSIS: Acute osteomyelitis of right foot TISSUE SUBMITTED: Right fifth metatarsal bone MICROSCOPIC DIAGNOSIS Right fifth metatarsal bone, biopsy: Chronic reparative and reactive change. AM:mayela 07/29/2023 MICROSCOPIC DESCRIPTION Slides are reviewed. GROSS DESCRIPTION Received in fixative is one container labeled with the patient's name and designated right fifth metatarsal bone. The specimen consists of multiple irregular fragments of damon bone that in aggregate measure 2.5 x 2.0 x 0.3 cm. The specimen is totally submitted in one cassette after decalcification. / AM:maeyla 07/24/2023 TC:3 CPT: 03170, 73572
--- NOTE | 2023-07-23 12:30 | RAD_ITS ---
STUDY: X-RAY - RIGHT FOOT CLINICAL: Female, 67 years old. 5TH METATARSAL EXCISION WITH DEBRIDEMENT TECHNIQUE: Single C-arm view(s) of the foot. 2 seconds fluoroscopy time COMPARISON: None. FINDINGS: A single limited [id number] C-arm images from the OR shows resection of the base of the fifth metatarsal. Correlate with procedure note . Electronically Signed: Kishor Spence MD at 20:37 EST , RAD/Foot 2 Views IMPRESSION: undefined
[2023-07-23] MEDS: Bupivacaine Mpf 0.5% 30 ML VIAL (13:06)
--- NOTE | 2023-07-23 13:26 | OP.PCM_ITS ---
Problems Associated Problem List Diagnoses (1) Non-pressure chronic ulcer of other part of right foot with necrosis of bone: (2) Type 2 diabetes mellitus with diabetic polyneuropathy: (3) Metatarsus adductus of right foot: (4) Charcot's joint, right ankle and foot: (5) Acute osteomyelitis of right foot: Report of Operation Date of Procedure: 07/23/23 Pre-Operative Diagnosis: 1) chronic right foot wound down to level of bone 2) osteomyelitis right foot 3) diabetic neuropathy 4) Charcot deformity right foot with midfoot breakdown 5) metatarsus adductus deformity right foot Post-Operative Diagnosis: Same Surgery/Procedure Performed:: 1) excision right fifth metatarsal base 2) delayed primary closure right foot wound Description of Surgical Findings:: Patient has been treated weekly for the past year for chronic right foot wound. This subsequently healed after prolonged immobilization and repeat debridements. Patient noted recurrence approximately 6 weeks prior with worsening of the wound. Over the past 3 weeks the wound developed an infection confirmed by radiographic changes on x-ray to the fifth metatarsal base. Decision was for hospital admission excision of fifth metatarsal base. Due to severity of deformity patient would likely benefit from a complete Charcot reconstruction; however, patient is a poor candidate due to her due to her poor motivational st atus and high blood sugar with a recent A1c greater than 12. At this time for infection clearance this was discussed with patient and sister in great detail fifth metatarsal base would be removed to clear any osteomyelitic bone and allow for wound closure. It was discussed with patient that she may develop a hindfoot varus deformity secondary to excision of the base due to loss of peroneus brevis function. Surgeon: Don Keith Type of Anesthesia: MAC Special Medications: 10 cc half percent Marcaine plain Specimen's removed: Right fifth metatarsal base for microbiology and bone culture, right foot wound tissue culture Drains: None Estimated Blood Loss (mL): 10 cc Description of Procedure: Patient was brought back the operating placed comfortably in supine position on the operating room table. Patient induced under MAC anesthesia. Well-padded right thigh tourniquet applied. Right lower extremity scrubbed prepped draped using typical aseptic fashion. Local infiltration block was performed with 10 cc half percent Marcaine plain using sterile technique. This was performed to right fifth metatarsal base wound. Right lower extremity was elevated exsanguinated tourniquet was inflated to 300 mmHg. Procedure #1: Excision right fifth metatarsal base Using a #15 blade and pickups, the right fifth metatarsal base was then ellipsed out in its entirety and the wound was excised down to level of bone/fifth metatarsal base. This was passed back table and sent to microbiology for tissue culture. The fifth metatarsal base was then identified and noted to be pathologically fracture with decreased bone mineral density secondary to chronic infection. Using a sagittal saw the fifth metatarsal base was were sected. Approximately 25% of the fifth metatarsals were removed from the proximal aspect including the insertional aspect of the peroneus brevis tendon. This was split and passed to the back table for bone culture and bone pathology. The residual wound base was examined and no residual infection noted. Site was flushed with copious amounts normal sterile saline using low-pressure pulse lavage. Bone resection confirmed using fluoroscopic imaging and intraoperative examination Procedure #2: Delayed primary closure right fifth metatarsal base wound Tourniquet was let down, any bleeders identified cauterized at this time. All tourniquet time was noted be 15 minutes. Using 1 simple interrupted suture was placed across the central aspect of the incision to allow for adequate approximately summation of the wound. Then using vessel loop closure the wound edges were brought together under minimal tension as the blue maxi vessel loop was crisscrossed across the wound site and stabilized using elida in a fashion to allow for wound closure within the accordion leg pole that provides equal tension across the incisional aspect allow for good apposition of the wound edges. Site was dressed with Betadine Adaptic 4 x 4's Kerlix ABD pads and a well-padded AO splint to right lower extremity. Patient was transported to PACU vital signs stable vascular status intact all digits for further monitoring prior to transfer back to floor. Patient tolerated procedure and anesthesia well apparent satisfactory condition. Patient will continue to receive IV antibiotics and will await intraoperative cultures. No complications. Admit VTE Documentation VTE Present on Admission: Yes VTE Pharm Prophylaxis ordered?: Yes
[2023-07-23 14:36] LABS: Bedside Glucose 178 mg/dL (74-106)
[2023-07-23] MEDS: Insulin Lispro 100 UNIT/ML INSULN.PEN SC ×2 (16:22→21:27)
[2023-07-23] MEDS: Carvedilol 6.25 MG Tablet PO (16:24)
[2023-07-23] MEDS: Ascorbic Acid 500 MG Tablet 1000 MG PO (16:25)
[2023-07-23] MEDS: Acetaminophen 325 MG Tablet 650 MG PO (16:28)
[2023-07-23 20:56] LABS: Bedside Glucose 277 mg/dL (74-106)
[2023-07-23] MEDS: amLODIPine 5 MG Tablet PO (21:23)
[2023-07-23] MEDS: Ezetimibe 10 MG Tablet PO (21:24)
[2023-07-23] MEDS: Gabapentin 300 MG Capsule PO (21:32)
[2023-07-23 21:53] LABS: Bedside Glucose 314 mg/dL (74-106)
[2023-07-23 23:35] LABS: Vancomycin, Trough Level 21.3 ug/mL (5.0-15.0)
[2023-07-24] VITALS (7 sets, daily range): BP systolic 109–137; BP diastolic 52–66; PULSE 88–93; RESP 16–17; TEMP 36.7–37.1; O2SAT 92–98; BMI 33.8
--- NOTE | 2023-07-24 00:10 | PCM.RX.CS ---
Consult Antibiotic Management Pharmacy has been consulted to manage selected antiobiotic: Vancomycin Type of Intervention Type of Consult: Follow-up Labs Labs: Sodium 140 mmol/L (136-145) 07/23/23 05:35 Potassium 4.6 mmol/L (3.5-5.1) 07/23/23 05:35 Chloride 111 mmol/L (98-107) H 07/23/23 05:35 Carbon Dioxide 21.0 mmol/L (21.0-32.0) 07/23/23 05:35 Anion Gap 8 (5-15) 07/23/23 05:35 BUN 57 mg/dL (7-18) H 07/23/23 05:35 Creatinine 2.37 mg/dL (0.55-1.02) H 07/23/23 05:35 Est GFR (MDRD) Af Amer 26 mL/min (>60) L 07/23/23 05:35 Est GFR (MDRD) Non-Af 22 mL/min (>60) L 07/23/23 05:35 BUN/Creatinine Ratio 24.1 RATIO (10-20) H 07/23/23 05:35 Glucose 196 mg/dL (74-106) H 07/23/23 05:35 Vancomycin Trough 21.3 ug/mL (5.0-15.0) H 07/23/23 23:03 Microbiology Microbiology: Microbiology 07/22/23 07:15 Wound - Right Foot Gram Stain - Final Goal Trough Goal Trough: 15-20 mcg/mL Pharmacy Plan for Drug Dosing Pharmacy Plan for Drug Dosing: Pharmacy Service will continue to monitor and adjust dosing as required. Follow-Up Labs Follow-Up Labs: Trough: Vancomycin Date/Time Labs Ordered Labs to be done on [date and time ordered]: RANDOM 07/24 @ 0700
[2023-07-24] MEDS: Piperacil/Tazobactam 3.375 GM in 0.9% Normal Saline (50mL MB+) 50 ML IV ×2 (05:29→14:27)
[2023-07-24] MEDS: Insulin Lispro 100 UNIT/ML INSULN.PEN SC ×3 (06:23→15:55)
[2023-07-24 06:42] LABS: Bedside Glucose 294 mg/dL (74-106)
--- NOTE | 2023-07-24 07:23 | PCM.PROGNOTE ---
Subjective Subjective Denies, denies pain, no chest pain calf pain shortness of breath. Patient notes some loose stools overnight. No other complaints. Patient 1 day postop. Objective Data Objective Data Vital Signs: Vital Signs Temp Pulse Resp BP Pulse Ox O2 Del Method 98.8 F 90 16 109/52 L 94 Room Air 07/24/23 02:30 07/24/23 02:30 07/24/23 02:30 07/24/23 02:30 07/24/23 02:30 07/24/23 02:30 Oxygen Delivery Method Room Air Weight: 81.3 kg Body Mass Index (BMI) 33.8 Intake & Output: Intake and Output for Last 24 Hours 07/22/23 07/23/23 07/24/23 23:59 23:59 23:59 Intake Total 1077.71 / 1077.71 415 / 415 50 / 50 Output Total 350 / 350 Balance 1077.71 / 1077.71 65 / 65 50 / 50 Lab / Micro Data 07/23/23 05:35 07/23/23 05:35 Labs: Laboratory Results - last 24 hr 07/23/23 08:13: POC Glucose 190 H 07/23/23 14:15: POC Glucose 178 H 07/23/23 16:21: POC Glucose 277 H 07/23/23 21:26: POC Glucose 314 H 07/23/23 23:03: Vancomycin Trough 21.3 H 07/24/23 06:22: POC Glucose 294 H Micro: Microbiology 07/22/23 07:15 Wound - Right Foot Gram Stain - Final Radiography Diagnostic Testing: Radiology Impression Foot X-Ray 07/23/23 12:30 IMPRESSION: undefined Physical Exam Narrative Splint intact right lower extremity. No pain with calf squeeze no sign of DVT. Patient able to actively move digits. Neurovascular structure status intact to right lower extremity digits via capillary fill time. Const alert and oriented x3 Assessment & Plan Assessment/Plan (1) Charcot's joint, right ankle and foot: PLAN: Exam performed Splint left intact, dressing will be left intact for 1 week until follow-up next week with Dr. Keith. Patient should remain nonweightbearing. Discussed with patient that she can bear weight to heel for balance purposes to prevent any falls but should limit this as much as possible. I have suggested wearing a surgical shoe while doing this. Patient receiving IV Vanco and Zosyn, intraoperative cultures pending Intraoperatively there is no obvious signs of acute or chronic infection residual after bone resection. Will defer antibiotic management to infectious disease. (2) Metatarsus adductus of right foot: (3) Type 2 diabetes mellitus with diabetic polyneuropathy: (4) Non-pressure chronic ulcer of other part of right foot with necrosis of bone: (5) Acute osteomyelitis of right foot:
[2023-07-24 07:31] LABS: Absolute Neutrophil Count 5.8 X10^3/uL (2.0-7.7); Basophil# 0.04 X10^3/uL; Basophil% 0.5 % (0-1); Eosinophil# 0.23 X10^3/uL; Eosinophils% 2.9 % (0-5); Hematocrit 31.9 % (37-47); Hemoglobin 10.3 g/dL (12.0-15.0); Lymphocyte % 12.7 % (19-41); Mean Corp Hgb Conc 32.3 g/dL (32-36); Mean Corpuscular Hgb 29.3 pg (27.0-32.0); Mean Corpuscular Volume 90.6 fL (81-99); Monocyte# 0.81 X10^3/uL; Monocyte% 10.3 % (0-10); NRBC Flagged by Analyzer 0 % (0-5); Neutrophil # 5.79 X10^3/uL (2.7-7.7); Neutrophil % 73.2 % (47-70); Platelet Count 276 K/mm3 (150-450); RBC Distribution Width CV 12.7 % (11.6-14.6); RBC Distribution Width SD 42.3 fl (35.1-43.9); Red Blood Count 3.52 M/mm3 (4.2-5.4); White Blood Count 7.9 K/mm3 (4.4-11.0)
[2023-07-24] MEDS: Bumetanide 0.5 MG Tablet PO (07:31)
[2023-07-24] MEDS: Ascorbic Acid 500 MG Tablet 1000 MG PO ×2 (07:31→15:59)
[2023-07-24] MEDS: Loratadine 10 MG Tablet PO (07:32)
[2023-07-24] MEDS: Losartan Potassium 50 MG Tablet PO (07:32)
[2023-07-24] MEDS: Aspirin E.C. 81 MG Tablet PO (07:33)
--- NOTE | 2023-07-24 07:36 | PN.HOSP_ITS ---
Reason for Visit Reason for Visit: Diagnoses Type 2 diabetes mellitus with diabetic polyneuropathy (07/21/23) Type 2 diabetes mellitus with other skin complications (07/21/23) Local infection of the skin and subcutaneous tissue, unspecified (07/21/23) Non-pressure chronic ulcer of other part of right foot with necrosis of bone (07/21/23) Charcot's joint, right ankle and foot (07/21/23) Other acute osteomyelitis, right ankle and foot (07/21/23) Congenital metatarsus adductus, right foot (07/21/23) Subjective Subjective Feel well post operatively. No complaints. Objective Data Objective Data Vital Signs: Vital Signs Temp Pulse Resp BP Pulse Ox O2 Del Method 36.7 C 88 17 137/66 H 97 Room Air 07/24/23 07:26 07/24/23 07:26 07/24/23 07:26 07/24/23 07:26 07/24/23 07:26 07/24/23 07:26 Oxygen Delivery Method Room Air Weight: 81.3 kg Body Mass Index (BMI) 33.8 Intake & Output: Intake and Output for Last 24 Hours 07/22/23 07/23/23 07/24/23 23:59 23:59 23:59 Intake Total 1077.71 / 1077.71 415 / 415 50 / 50 Output Total 350 / 350 Balance 1077.71 / 1077.71 65 / 65 50 / 50 Lab / Micro Data 07/24/23 07:10 07/24/23 07:10 Labs: Laboratory Results - last 24 hr 07/23/23 08:13: POC Glucose 190 H 07/23/23 14:15: POC Glucose 178 H 07/23/23 16:21: POC Glucose 277 H 07/23/23 21:26: POC Glucose 314 H 07/23/23 23:03: Vancomycin Trough 21.3 H 07/24/23 06:22: POC Glucose 294 H 07/24/23 07:10: WBC 7.9, RBC 3.52 L, Hgb 10.3 L, Hct 31.9 L, MCV 90.6, MCH 29.3, MCHC 32.3, RDW Std Deviation 42.3, RDW Coeff of Steven 12.7, Plt Count 276, MPV 10.0, Immature Gran % (Auto) 0.400, Neut % (Auto) 73.2 H, Lymph % (Auto) 12.7 L, [place] % (Auto) 10.3 H, Eos % (Auto) 2.9, Baso % (Auto) 0.5, Absolute Neuts (auto) 5.8, Absolute Lymphs (auto) 1.00, Nucleated RBC % 0 Micro: Microbiology 07/22/23 07:15 Wound - Right Foot Gram Stain - Final Radiography Diagnostic Testing: Radiology Impression Foot X-Ray 07/23/23 12:30 IMPRESSION: undefined Physical Exam Const alert and no apparent distress HEENT head/scalp atraumatic GI normal to inspection, nondistended, normoactive bowel sounds Extremity Extremity Narrative: right foot dressing in place. Neuro moves all extremities Sensorium / Orientation: awake and alert Psych affect normal Assessment & Plan Assessment/Plan (1) Acute osteomyelitis of right foot: PLAN: Acutely Infected right foot/ankle Diabetic Ulcer with associated Acute osteomyelitis: vanc/zosyn w/ ID consultation, consult Dr. Keith, JUANJO to the RLE, elevation RLE, request Wound RN consultation, Foot xray showed Charcot's deformity of the midfoot. Destruction of the 4th metatarsal w overlying soft tissue swelling and ulceration. Stress test with apical hypokinesis, but no reversible ischemia. Medically clear for surgery (informed Dr. Keith of clearance on 07/22) Patient underwent excision right 4th metatarsal base, delayed primary closure right foot wound. Per Dr. Keith, there is no obvious acute nor chronic infection residual after bone resection. Vanc and pip/tazo. Wound culture showing GPR. PLAN: Plan Chronic conditions: * HFrEF/Cardiomyopathy unclear type: 12/2022 ECHO with EF of 40- 45% with mild to moderate LV dysfunction and anterior apical and distal septal hypokinesis and mild MR. Continue aspirin, amlodipine, butamben, carvedilol, losartan. Saw cards in February 2023 with plans for stress test. Stress test showed fixed apical defect, consistent with possible previous infarctoin. Apical hypokinesia, negative for reversible myocardial infarction. * Chronic normocytic anemia/Fe Deficiency anemia: Admission hemoglobin 11.4, MCV 89.3, baseline hemoglobin more recently 11 range however earlier in 2022 had been 8-9 w/ GI bleed admission as noted, continue to trend. 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 * Chronic Kidney Disease Stage IV: Admission BUN/Cr 62/2.37, baseline renal function appears primarily 1.8-2.2 * Diabetes mellitus type II with chronic neuropathy: Hold oral home regimen, continue home insulin regimen, ADA diet, accu checks w/ ISS, continue gabapentin. * Hypertension: Continue amlodipine, losartan, Coreg, IV Lasix as noted, PRN hydralazine. * Hyperlipidemia: Continue home Zetia regimen, statin intolerant. * Obesity: Weight loss and lifestyle changes encouraged. DVT prophylaxis: Heparin. CODE status: Full Code. Charges/Coding Visit Charges Inpatient E&M: 72817 Subs Hosp L2
[2023-07-24] MEDS: Carvedilol 6.25 MG Tablet PO ×2 (07:38→16:00)
[2023-07-24] MEDS: Pantoprazole Sodium 20 MG Tablet PO (07:38)
--- NOTE | 2023-07-24 08:00 | WOUNDNOTE ---
Dr Keith in to see patient this am. Dressing is to remain in place. will monitor as needed.
[2023-07-24] MEDS: Acetaminophen 325 MG Tablet 650 MG PO (08:06)
[2023-07-24 08:17] LABS: Vancomycin, Random Level 19.8 ug/mL (0.0-15.0)
--- NOTE | 2023-07-24 08:23 | PCM.RX.CS ---
Consult Antibiotic Management Pharmacy has been consulted to manage selected antiobiotic: Vancomycin Type of Intervention Type of Consult: Follow-up Suspected Infection Suspected Infection: Other (DIABETIC ULCER/OSTEO) Prior Doses of Antibiotics Prior Doses of Antibiotics Received/Current Regimen: Vancomycin 750 mg given 07/23/23 @ 0056 Labs Labs: Vancomycin Trough 21.3 ug/mL (5.0-15.0) H 07/23/23 23:03 Random Vancomycin 19.8 ug/mL (0.0-15.0) H 07/24/23 07:10 Microbiology Microbiology: Microbiology 07/22/23 07:15 Wound - Right Foot Gram Stain - Final 07/22/23 07:15 Wound - Right Foot Wound Culture - Final Corynebacterium striatum Dosing Weight Weight used for dosin.3 kg Estimated Creatinine Clearance Estimated Creatinine Clearance: ~22 Goal Trough Goal Trough: 15-20 mcg/mL Pharmacy Plan for Drug Dosing Pharmacy Plan for Drug Dosing: Vancomycin random level = 19.8, restart vancomycin at 500 mg Q24H Pharmacy Service will continue to monitor and adjust dosing as required. Follow-Up Labs Follow-Up Labs: Trough: Vancomycin Date/Time Labs Ordered Labs to be done on [date and time ordered]: 07/26/23 @ 0878
[2023-07-24 08:37] LABS: Anion Gap 5 (5-15); BUN 51 mg/dL (7-18); BUN/Creat Ratio 19.8 RATIO (10-20); Calcium,Total 8.2 mg/dL (8.5-10.1); Chloride 110 mmol/L (98-107); Creatinine, Serum 2.58 mg/dL (0.55-1.02); EST Glomerular Filtration Rate 20 mL/min (>60); Est Glom Filt Rate - Afr Amer 24 mL/min (>60); Estimated Creatinine Clearance 15.97 ml/min; Glucose 304 mg/dL (74-106); Potassium 4.3 mmol/L (3.5-5.1); Sodium Level 138 mmol/L (136-145)
[2023-07-24] MEDS: Vancomycin IV 500 MG/100 ML BAG 100 MG IV (09:48)
[2023-07-24] MEDS: 0.9% Normal Saline (250mL Bag) 250 ML 15 ML IV (09:48)
[2023-07-24 11:15] LABS: Bedside Glucose 352 mg/dL (74-106)
--- NOTE | 2023-07-24 13:14 | PCM.PN.ID ---
Physical Exam Narrative Feeling ok, some loose stool this AM, no fever, no abd pain Const alert and no apparent distress Resp normal air movement and clear to auscultation bilaterally Cardio regular rate and regular rhythm GI soft to palpation, non-tender and non-distended Skin Skin Narrative: no new rash ID ID: Route of nutrition/ use of supplements: [] Nutritional Intake: [] IV Site: [] Alas Catheter: [] Assessment & Plan Assessment/Plan (1) Acute osteomyelitis of right foot: PLAN: Wound cx with corynebacter, neg bcx x2. MRI done. OR 07/[address] Keith with resection distal R 5th metatarsal. On empiric vanc/zosyn. Ok for home with one week po doxy/augmentin. Wrote rx. Will follow (2) Diabetic neuropathy: QUALIFIERS: Diabetes mellitus type: type 2 Diabetes mellitus complication detail: diabetic polyneuropathy Qualified Code(s): E11.42 - Type 2 diabetes mellitus with diabetic polyneuropathy
[2023-07-24] MEDS: Glycerin/Hypromellose/PEG400 15 ml Bottle 3 DRP EACH EYE (14:28)
--- NOTE | 2023-07-24 14:45 | DS.PCM_ITS ---
Providers Date of Admission: 07/21/23 Primary Care Physician: Dr. Hever Otoole, Consultations 07/21/23 18:44 Consult: Infectious Disease Routine Consulting Provider: Danny Amaro Reason for Consult: Diabetic foot infection, osteo EMERGENT Consult: No Notified: Yes Date Notified: 07/22/23 Time Notified: 07:08 Method of Notification: Answering Service Consult: Onc/Wound/violin restorer Routine Comment: Reason for Consult:: diabetic wounds Consult: Podiatry Routine Consulting Provider: Don Keith Reason for Consult: R foot osteo EMERGENT Consult: No Notified: Yes Date Notified: 07/21/23 Time Notified: 16:23 Method of Notification: ED Physician Initiated Reason For Visit: DIABETIC ULCER/OSTEOMYELITIS Diagnosis Discharge Diagnosis (1) Acute osteomyelitis of right foot: Status: Acute Code(s): M86.171 - Other acute osteomyelitis, right ankle and foot Plan: Acutely Infected right foot/ankle Diabetic Ulcer with associated Acute oste omyelitis: vanc/zosyn w/ ID consultation, consult JUANJO Rai to the RLE, elevation RLE, request Wound RN consultation, Foot xray showed Charcot's deformity of the midfoot. Destruction of the 4th metatarsal w overlying soft tissue swelling and ulceration. Stress test with apical hypokinesis, but no reversible ischemia. Medically clear for surgery (informed Dr. Keith of clearance on 07/22) Patient underwent excision right 4th metatarsal base, delayed primary closure right foot wound. Per Dr. Keith, there is no obvious acute nor chronic infection residual after bone resection. Vanc and pip/tazo. Wound culture showing showing corynebacterium. Infectious disease recommending discharge with oral Doxy and Augmentin. Patient be discharged to home with home care. Patient to follow-up with podiatry as outpatient. (2) Diabetic neuropathy: Status: Acute Code(s): E11.40 - Type 2 diabetes mellitus with diabetic neuropathy, unspecified Qualifiers: Diabetes mellitus type: type 2 Diabetes mellitus complication detail: diabetic polyneuropathy Qualified Code(s): E11.42 - Type 2 diabetes mellitus with diabetic polyneuropathy Plan Chronic conditions: * HFrEF/Cardiomyopathy unclear type: 12/2022 ECHO with EF of 40- 45% with mild to moderate LV dysfunction and anterior apical and distal septal hypokinesis and mild MR. Continue aspirin, amlodipine, butamben, carvedilol, losartan. Saw cards in February 2023 with plans for stress test. Stress test showed fixed apical defect, consistent with possible previous infarctoin. Apical hypokinesia, negative for reversible myocardial infarction. * Chronic normocytic anemia/Fe Deficiency anemia: Admission hemoglobin 11.4, MCV 89.3, baseline hemoglobin more recently 11 range however earlier in 2022 had been 8-9 w/ GI bleed admission as noted, continue to trend. 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 * Chronic Kidney Disease Stage IV: Admission BUN/Cr 62/2.37, baseline renal function appears primarily 1.8-2.2 * Diabetes mellitus type II with chronic neuropathy: Hold oral home regimen, continue home insulin regimen, ADA diet, accu checks w/ ISS, continue gabapentin. * Hypertension: Continue amlodipine, losartan, Coreg, IV Lasix as noted, PRN hydralazine. * Hyperlipidemia: Continue home Zetia regimen, statin intolerant. * Obesity: Weight loss and lifestyle changes encouraged. DVT prophylaxis: Heparin. CODE status: Full Code. Medications at Discharge Home Medications aspirin 81 mg tablet,delayed release (Adult Low Dose Aspirin) 81 mg PO DAILY HEART HEALTH 07/16/20 ascorbic acid (vitamin C) 1,000 mg capsule 1 g PO BID SUPPLEMENT 04/14/22 loratadine 10 mg tablet (Allergy Relief (loratadine)) 10 mg PO DAILY ALLERGIES 04/14/22 vitamins A,C,I-jbht-vmjkcg 4,296 mcg-226 mg-90 mg capsule (ICaps AREDS) 1 cap PO BID EYE HEALTH 04/14/22 cholecalciferol (vitamin D3) 50 mcg (2,000 unit) capsule 50 mcg PO DAILY SUPPL EMENT 10/09/22 glucosamine-chondroitin 250 mg-200 mg tablet (Osteo Bi-Flex) 2 tab PO QHS SUPPLEMENT 10/13/22 amlodipine 5 mg tablet 5 mg PO QHS BLOOD PRESSURE 11/21/22 losartan 50 mg tablet 50 mg PO DAILY BLOOD PRESSURE 11/21/22 ezetimibe 10 mg tablet 10 mg PO QHS CHOLESTEROL 12/02/22 bumetanide 0.5 mg tablet 0.5 mg PO DAILY EDEMA #90 tabs 03/03/23 carvedilol 6.25 mg tablet 6.25 mg PO BID HEART #180 tabs 03/03/23 Humalog Mix 50-50 KwikPen U-100 Insulin 100 unit/mL subcutaneous pen (insulin lispro protamin-lispro) 70 unit (0.7 mL) subcut BID DIABETES #45 mL 03/20/23 dulaglutide 1.5 mg/0.5 mL subcutaneous pen injector (Trulicity) 1.5 mg subcut TU DIABETES 07/17/23 omeprazole 20 mg capsule,delayed release 20 mg PO DAILY ACID REFLUX 07/17/23 finerenone 20 mg tablet (Kerendia) 20 mg PO DAILY KIDNEYS 07/21/23 gabapentin 300 mg capsule 300 - 600 mg PO QHS PRN NEUROPATHY 07/21/23 gabapentin 300 mg capsule 300 mg PO TID PRN NEUROPATHY 07/21/23 insulin lispro 100 unit/mL subcutaneous pen (Humalog KwikPen (U-100) Insulin) 3 - 15 unit subcut ACHS 07/21/23 acetaminophen 500 mg capsule 650 mg (1.3 x 500 mg) PO Q4H PRN PRN Fever, pain - 06/16 #0 caps 07/24/23 amoxicillin 875 mg-potassium clavulanate 125 mg tablet 1 tab PO BID #14 tabs 07/24/23 doxycycline hyclate 100 mg capsule 100 mg PO BID #14 caps 07/24/23 peg 400-propylene glycol (PF) 0.4 %-0.3 % eye drops in a dropperette (Lubricant Eye (PG-PEG 400) (PF)) 3 drp EACH EYE DAILY dry eyes 07/24/23 Hospital Course Operations - (1) excision right fifth metatarsal base 2) delayed primary closure right foot wound) Procedures None Summary of Care Provided Minutes Spent on Discharge: 32 Hospital Course: Patient mated with osteomyelitis of her fifth metatarsal. Patient underwent incision and debridement of that affected area. Area that was infected was cleaned up. Patient did have corynebacterium. Patient be discharged with Augmentin as well as doxycycline with follow-up with podiatry as outpatient. Weight / BMI Weight Weight: 81.3 kg Body Mass Index (BMI) 33.8 ABG / Lab / Microbiology Data 07/24/23 07:10 07/24/23 07:10 Laboratory: Laboratory Results - last 24 hr 07/23/23 16:21: POC Glucose 277 H 07/23/23 21:26: POC Glucose 314 H 07/23/23 23:03: Vancomycin Trough 21.3 H 07/24/23 06:22: POC Glucose 294 H 07/24/23 07:10: WBC 7.9, RBC 3.52 L, Hgb 10.3 L, Hct 31.9 L, MCV 90.6, MCH 29.3, MCHC 32.3, RDW Std Deviation 42.3, RDW Coeff of Steven 12.7, Plt Count 276, MPV 10.0, Immature Gran % (Auto) 0.400, Neut % (Auto) 73.2 H, Lymph % (Auto) 12.7 L, [place] % (Auto) 10.3 H, Eos % (Auto) 2.9, Baso % (Auto) 0.5, Absolute Neuts (auto) 5.8, Absolute Lymphs (auto) 1.00, Nucleated RBC % 0, Sodium 138, Potassium 4.3, Chloride 110 H, Carbon Dioxide 23.0, Anion Gap 5, BUN 51 H, Creatinine 2.58 H, Estim Creat Clear Calc 15.97, Est GFR (MDRD) Af Amer 24 L, Est GFR (MDRD) Non-Af 20 L, BUN/Creatinine Ratio 19.8, Glucose 304 H, Calcium 8.2 L, Random Vancomycin 19.8 H 07/24/23 10:52: POC Glucose 352 H Microbiology: Microbiology 07/23/23 13:34 Tissue - Right Foot Wound Culture - Preliminary Gram positive jorge 07/22/23 07:15 Wound - Right Foot Gram Stain - Final 07/22/23 07:15 Wound - Right Foot Wound Culture - Final Corynebacterium striatum 07/22/23 07:15 Wound - Right Foot Anaerobic Culture - Preliminary Radiography Diagnostic Testing: Radiology Impression Foot X-Ray 07/23/23 12:30 IMPRESSION: undefined D/C Instructions Discharge Diet: 2000 Calorie Control Diet Weight Bearing Status: No weight bearing Keep extremity elevated above heart level: Right Leg Meaningful Use Info Meaningful Use Diagnoses (Choose all that apply): None applicable Discharge Plan Admission Admit Date/Time: 07/21/23 14:53 Primary Reason for Your Visit: Osteomyelitis Attending Provider: Jim Mendez Primary Care Provider: Hever Otoole Consulting Providers: Aiyana Porter; Danny Amaro; Don Keith Instructions Additional Instructions / Restrictions: Keep dressing clean dry and intact until follow-up in 1 week Patient follow-up with Dr. Fuentes 1 week Maintain nonweightbearing right lower extremity assisted by knee scooter at home, patient has knee scooter Discharge Orders/Prescriptions Prescriptions: New amoxicillin-pot clavulanate 875-125 mg tablet 1 tab PO BID Qty: 14 0RF doxycycline hyclate 100 mg capsule 100 mg PO BID Qty: 14 0RF acetaminophen 500 mg capsule 650 mg PO Q4H PRN PRN (Reason: Fever, pain -06/16) Qty: 0 0RF Continued aspirin [Adult Low Dose Aspirin] 81 mg tablet,delayed release (DR/EC) 81 mg PO DAILY loratadine [Allergy Relief (loratadine)] 10 mg tablet 10 mg PO DAILY ascorbic acid (vitamin C) 1,000 mg capsule 1 g PO BID ICaps AREDS 14,320-226-200 mmgo-[id number] capsule 1 cap PO BID losartan 50 mg tablet 50 mg PO DAILY amlodipine 5 mg tablet 5 mg PO QHS carvedilol 6.25 mg tablet 6.25 mg PO BID Qty: 180 3RF bumetanide 0.5 mg tablet 0.5 mg PO DAILY Qty: 90 3RF glucosamine-chondroitin [Osteo Bi-Flex] 250-200 mg Tablet 2 tab PO QHS ezetimibe 10 mg tablet 10 mg PO QHS gabapentin 300 mg capsule 300 mg PO TID PRN (Reason: NEUROPATHY) Patient Comments: PER ROSEMARY HAMILTON, TAKE ONE CAPSULE BY MOUTH THREE TIMES A DAY NEEDED WELL 1 TO 2 ADDITIONAL CAPSULES AT BEDTIME NEEDED FOR PAIN (VERIFIED ON 07-21-23) gabapentin 300 mg capsule 300 - 600 mg PO QHS PRN (Reason: NEUROPATHY ) Patient Comments: PER ROSEMARY HAMILTON, TAKE ONE CAPSULE BY MOUTH THREE TIMES A DAY NEEDED WELL 1 TO 2 ADDITIONAL CAPSULES AT BEDTIME NEEDED FOR PAIN (VERIFIED ON 07-21-23) Kerendia 20 mg tablet 20 mg PO DAILY Patient Comments: PT STATES THAT THEY ARE SUPPOSED TO BE ON THIS MEDICATION BUT ARE CURRENTLY IN THE [place]UT HOLE SO THEY HAVE NOT TAKEN IT SINCE DECEMBER/JANUARY DUE TO THE HIGH COST OF THIS MEDICATION. insulin lispro [Humalog KwikPen Insulin] 100 unit/mL Insulin Pen 3 - 15 unit subcut [facility] Protocol: 3. Sliding Scale Insulin Med Dosing Condition: 150-189 mg/dl = 1 unit Condition: 190-229 mg/dl = 2 units Condition: 230-269 mg/dl = 3 units Condition: 270-309 mg/dl = 4 units Condition: 310-349 mg/dl = 5 units Condition: 350-399 mg/dl = 6 units Condition: 400-449 mg/dl = 7 units Condition: Greater than 449 call physician Protocol Text: - Use for Total Daily Dose of Insulin 37-55 units - Obsese, infected, or steroid patients MEDIUM DOSING ALGORITHIM Lubricant Eye (PG-PEG 400)(PF) 0.4-0.3 % dropperette 3 drp EACH EYE DAILY Trulicity 1.5 mg/0.5 mL pen injector 1.5 mg SUBCUT TU omeprazole 20 mg capsule,delayed release(DR/EC) 20 mg PO DAILY cholecalciferol (vitamin D3) 50 mcg (2,000 unit) capsule 50 mcg PO DAILY Humalog Mix 50-50 KwikPen 100 unit/mL (50-50) insulin pen 70 unit subcut BID Qty: 45 4RF Discontinued ciprofloxacin HCl 750 mg tablet 750 mg PO BID Patient Comments: NEW 10 DAY SUPPLY RX FILLED AND STARTED ON 07-07-23. doxycycline hyclate 100 mg tablet 100 mg PO BID Patient Comments: NEW 10 DAY SUPPLY RX FILLED AND STARTED ON 07-07-23. Referrals / Follow Up: Don Keith DPM [Med Staff - Active Staff] - In 1 Week Hever Otoole DO [Primary Care Provider] - Within 2 Weeks Disposition Disposition (needs filled in before D/C Order can be placed): Home Health Service Charges/Coding Visit Charges Inpatient E&M: 51449 Disch Hosp >30min
--- NOTE | 2023-07-24 15:52 | CASEMGMT ---
ROSELYN CM into pt room, pt sitting up in chair. Pt states she has been non wt bearing before and uses her rollator to scoot around on. 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 Her dressing is to stay intact until she sees in the office. If dressing changes are needed after this, pt states her sister will perform them. Pt denies any further homegoing needs at this time.
[2023-07-24 16:30] LABS: Bedside Glucose 411 mg/dL (74-106)
== END 2023-07-24 18:26 | disposition home health service (06) | DRG 629 ==
LOC: ED 14:31 → MS3 16:59
PROVIDERS: Anesthesiology; Podiatrist; Admitting Provider Family Medicine; Emergency Provider Emergency Medicine; PCP Family Medicine
PROC: 0QBN0ZX Excision of Right Metatarsal, Open Approach, Diagnostic (ICD-10-PCS; principal; 2023-07-23 12:15)
DX: E11.69 Type 2 diabetes mellitus with other specified complication (principal); I42.9 Cardiomyopathy, unspecified; I13.0 Hypertensive heart and chronic kidney disease with heart failure and stage 1 through stage 4 chronic kidney disease, or unspecified chronic kidney disease; I50.22 Chronic systolic (congestive) heart failure; M86.171 Other acute osteomyelitis, right ankle and foot; E11.22 Type 2 diabetes mellitus with diabetic chronic kidney disease; L97.514 Non-pressure chronic ulcer of other part of right foot with necrosis of bone; D50.9 Iron deficiency anemia, unspecified; E11.621 Type 2 diabetes mellitus with foot ulcer; N18.4 Chronic kidney disease, stage 4 (severe); E11.610 Type 2 diabetes mellitus with diabetic neuropathic arthropathy; E11.628 Type 2 diabetes mellitus with other skin complications; E11.42 Type 2 diabetes mellitus with diabetic polyneuropathy; Z79.4 Long term (current) use of insulin; E78.00 Pure hypercholesterolemia, unspecified; K21.9 Gastro-esophageal reflux disease without esophagitis; K44.9 Diaphragmatic hernia without obstruction or gangrene; Q66.221 Congenital metatarsus adductus, right foot; E66.9 Obesity, unspecified; Z79.82 Long term (current) use of aspirin; Z79.899 Other long term (current) drug therapy; Z68.33 Body mass index [BMI] 33.0-33.9, adult
CPT/HCPCS: 36415; 73620; 73630; 73718; 76000; 78452; 80048; 80053; 80202; 82962; 83036; 83735; 85025; 85610; 85652; 85730; 86140; 87040; 87070; 87075; 87077; 87205; 87640; 88305; 88307; 88311; 93005; 93017; 94668; 97162; 97166; 97530; 97802; 99252; 99285; A9500; J7040; J7050; J7120; A4216; G0463; J2405; J2785

== ENCOUNTER → 2023-08-25 | Outpatient (CLI) | payer MEDICARE, SELFPAY ==
[2023-08-25 12:01] LABS: Bacteria 0 SEEN /hpf (None Seen); Mucous, Urine 0 SEEN /hpf (<or=2+)
[2023-08-25 12:32] LABS: Color, Urine Straw (Yellow); Glucose, Dipstick 250 mg/dl (Normal); Ketone-Dipstick Negative (Negative); Leukocyte Esterase-Dipstick 25 /ul (Negative); Nitrite-Dipstick Negative (Negative); Occult Blood-Urine 10 /ul (Negative); Protein-Dipstick 15 mg/dl (Negative); Urine Bilirubin Dipstick Negative (Negative); Urine Clarity Sl. Cloudy (Clear); Urine Urobilinogen Normal (Normal)
[2023-08-25 12:45] LABS: Red Blood Cells-Urine 0-5 SEEN /hpf (0-5); Squamous Epithelial Cells - UA 0-5 SEEN /hpf (5-10); Vitamin D,25 Hydroxy 36.6 ng/mL; White Blood Cells 0-5 SEEN /hpf (0-5)
[2023-08-25 12:48] LABS: ALB/GLOB Ratio 0.8 RATIO (0.9-2.4); AST(SGOT) 21 U/L (15-37); Alanine Aminotransfer ALT/SGPT 38 U/L (13-56); Albumin, Serum 3.1 g/dL (3.2-5.0); Alkaline Phosphatase 116 U/L (45-117); Anion Gap 6 (5-15); BUN 54 mg/dL (7-18); Calcium,Total 9.2 mg/dL (8.5-10.1); Chloride 104 mmol/L (98-107); EST Glomerular Filtration Rate 26 mL/min (>60); Est Glom Filt Rate - Afr Amer 32 mL/min (>60); Glucose 346 mg/dL (74-106); Magnesium 2.2 mg/dL (1.6-2.6); Phosphorus 4.3 mg/dL (2.5-4.9); Potassium 5.2 mmol/L (3.5-5.1); Protein, Total 7.1 g/dL (6.4-8.2); Sodium Level 135 mmol/L (136-145); Uric Acid 4.5 mg/dL (2.6-6.0)
[2023-08-25 13:17] LABS: Protein, Urine (Random) 23.7 mg/dL (<11.9)
== END | disposition home or self-care (01) ==
LOC: LAB 11:46
PROVIDERS: PCP Family Medicine
DX: N18.30 Chronic kidney disease, stage 3 unspecified (principal)
CPT/HCPCS: 36415; 80053; 81001; 82043; 82306; 83735; 84100; 84156; 84550

== ENCOUNTER → 2023-09-15 | Outpatient (CLI) | payer MEDICARE, SELFPAY ==
--- OUTSIDE RECORDS SUMMARY | 2023-09-15 17:56 | XMS RPT_ITS | CCD ---
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 Lyla Zaidi Primary Care Eleuterio Main, Dr. Luther Wilkinson Attending Unavail able Sydnie, Dr. Kusum Mcbride Referring Unavaila ble SALAS, MANOHAR Attending Unavailable SYDNIE, KUSUM A Primary Care Unavailable YUAN, MANOHAR Referring Unavailable AZUL, ASHVIN K Referring Unavailable AZUL, ASHVIN K Attending Unavailable SYDNIE, KUSUM A Primary Care Unavailable SALAS, MANOHAR Attending Unavailable SYDNIE, KUSUM A Primary Care Unavailable YUAN, MANOHAR Referring Unavailable SYDNIE, KUSUM A Primary Care Unavailable YUAN, MANOHAR Referring Unavailable YUAN, MANOHAR Attending Unavailable SYDNIE, KUSUM A Primary Care Unavailable YUAN, MANOHAR Referring Unavailable YUAN, MANOHAR Attending Unavailable SYDNIE, KUSUM A Primary Care Unavailable YUAN, MANOHAR Referring Unavailable YUAN, MANOHAR Attending Unavailable AZUL, ASHVIN K Referring Unavailable AZUL, ASHVIN K Attending Unavailable SYDNIE, KUSUM A Primary Care Unavailable JUAN MAIN Attending Unavailable SYDNIE, KUSUM A Primary Care Unavailable Allergies Allergy Classification Reported Allergen(s) Allergy Type Date of Onset Reaction(s) Facility (18 sources) Lisinopril; Translations: [LISINOPRIL] Drug Allergy 0 Rash [facility] (14 sources) environmental [Other] Propensity to adverse reactions 6 [facility] Work Phone: (2 sources) OTHER; Translations: [OTHER] Propensity to adverse reactions (disorder) 6 [facility] Other [place] [facility] Medications Current Medications Medication Drug Class(es) Dates Sig (Normalized) Sig (Original) azithromycin 250 mg oral tablet (9 sources) Macrolide Antimicrobial Start: 05-19-2012 End: 07-26-2022 azithromycin (ZITHROMAX Z-SOFIA) 250 mg tablet Take 2 tablets by mouth day one, then 1 tablet daily until gone. 1 Package 0 05/19/2012 07/26/2022 Discontinued Completed/Discontinued Medications Medication Drug Class(es) Dates Sig (Normalized) Sig (Original) amLODIPine 5 mg oral tablet (15 sources) Dihydropyridine Calcium Channel Prateek Start: 02-07-2021 take 1 tablet by mouth once daily amLODIPine (NORVASC) 5 mg tablet Take 5 mg by mouth once daily. 0 02/07/2021 Active Problems Active Problems Problem Classification Problem Date Documented Date Episodic/Chronic Cataract (16 sources) Senile combined form cataract of right eye; Translations: [Combined forms of age-related cataract, right eye] Onset: 05-13-2022 Chronic Chronic kidney disease (3 sources) Chronic kidney disease stage 5; Translations: [Chronic kidney disease, Stage V] Onset: 08-27-2023 Chronic Congestive heart failure; nonhypertensive (1 source) Congestive heart failure; Translations: [Congestive heart failure, unspecified] Chronic Deficiency and other anemia (1 source) Anemia; Translations: [Anemia, unspecified] Episodic Diabetes mellitus with complications (20 sources) Macular edema and retinopathy due to type 2 diabetes mellitus; Translations: [Type 2 diabetes mellitus with severe nonproliferative diabetic retinopathy with macular edema, bilateral] Onset: 06-27-2021 Chronic Diabetes mellitus without complication (11 sources) Type 2 diabetes mellitus; Translations: [Type 2 diabetes mellitus without complications] Onset: 05-30-2021 05-30-2021 Chronic Disorders of lipid metabolism (19 sources) Hyperlipidemia; Translations: [Hyperlipidemia, unspecified] Onset: 02-18-2022 Chronic Essential hypertension (20 sources) Essential hypertension; Translations: [Essential (primary) hypertension] Onset: 02-18-2022 Chronic Other aftercare (2 sources) prison (current) use of insulin; Translations: [prison (current) use of insulin ([facility])] Onset: 12-12-2022 Episodic Other and ill-defined heart disease (1 source) Depression of left ventricular systolic function; Translations: [Heart disease, unspecified] Chronic Other disorders of stomach and duodenum (1 source) Pyloric stenosis; 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] Episodic Other non-epithelial cancer of skin (1 source) Basal cell carcinoma of skin; Translations: [Basal cell carcinoma of skin, site unspecified] Episodic Other nutritional; endocrine; and metabolic disorders (15 sources) Hypercalcemia; Translations: [Hypercalcemia] Onset: 05-30-2021 05-30-2021 Chronic Spondylosis; intervertebral disc disorders; other back problems (14 sources) Lumbosacral spondylosis without myelopathy; Translations: [Spondylosis without myelopathy or radiculopathy, lumbosacral region] Onset: 05-30-2021 05-30-2021 Chronic Past or Other Problems Problem Classification Problem Date Documented Da te Episodic/Chronic Crushing injury or internal injury (14 sources) Injury of kidney; Translations: [Unspecified injury of unspecified kidney, initial encounter] Onset: 05-30-2021 05-30-2021 Episodic Other connective tissue disease (14 sources) Recurrent falls ; Translations: [Repeated falls] Onset: 05-30-2021 05-30-2021 Episodic Other eye disorders (12 sources) Ptosis of eyelid; Translations: [Unspecified ptosis of bilateral eyelids] Onset: 05-13-2022 Episodic Other eye disorders (12 sources) H/O: L cataract extraction; Translations: [Cataract extraction status, left eye] Onset: 06-21-2022 Episodic Other eye disorders (7 sources) H/O: R cataract extraction; Translations: [Cataract extraction status, right eye] Onset: 06-21-2022 Episodic Spondylosis; intervertebral disc disorders; other back problems (14 sources) Lumbar radiculopathy; Translations: [Radiculopathy, lumbar region] Onset: 05-30-2021 05-30-2021 Episodic Superficial injury; contusion (14 sources) Contusion of chest; Translations: [Contusion of unspecified front wall of thorax, initial encounter] Onset: 05-30-2021 05-30-2021 Episodic Results Test Name Value Interpretation Reference Range Facil ity Vital Signs Date Time Vital Sign Value Performing Clinician Walter cheema 02-25-2023 11:30-0400 Diastolic blood pressure 78 mm[Hg] Lyla [facility]idi [facility] Work Phone: 02-25-2023 11:30-0400 Heart rate 68 /min Lyla Zaidi [facility] Work Phone: 02-25-2023 11:30-0400 Systolic blood pressure 132 mm[Hg] Lyla [facility]idi [facility] 3 DO Work Phone: 06-28-2022 11:12-0400 Diastolic blood pressure 72 mm[Hg] Ashvin Azul MD Work Phone: [facility] 06-28-2022 11:12-0400 Heart rate 89 /min Ashvin Azul MD Work Phone: [facility] 06-28-2022 11:12-0400 Systolic blood pressure 165 mm[Hg] Ashvin Azul MD Work Phone: [facility] 06-10-2022 11:07-0400 Diastolic blood pressure 72 mm[Hg] Ashvin Azul MD Work Phone: [facility] 06-10-2022 11:07-0400 Heart rate 89 /min Ashvin Azul MD Work Phone: [facility] 06-10-2022 11:07-0400 Systolic blood pressure 165 mm[Hg] Ashvin Azul MD Work Phone: [facility] 08-13-2021 10:20-0500 Diastolic blood pressure 72 mm[Hg] Ashvin Azul MD Work Phone: [facility] 08-13-2021 10:20-0500 Heart rate 89 /min Ashvin Azul MD Work Phone: [facility] 08-13-2021 10:20-0500 Systolic blood pressure 165 mm[Hg] Ashvin Azul MD Work Phone: [facility] Encounters Encounter Date Encounter Type Care Provider Facility Start: 08-27-2023 End: 08-27-2023 ambulatory [facility] Ambulatory Start: 08-06-2023 End: 08-06-2023 ambulatory [facility] Facility:[facility] Start: 05-14-2023 End: 05-14-2023 ambulatory [facility] Facility:[facility] Start: 05-14-2023 End: 05-14-2023 Patient encounter procedure Manohar Aponte MD, PhD Work Phone: Ophthalmology Procedures Date Procedure Procedure Detail Performing Clinician Start: 05-14-2023 End: 05-14-2023 Intravitreal njx pharmacologic agt spx Manohar Aponte MD, PhD Work Phone: Start: 05-14-2023 Computerized ophthal blanca imaging retina Manohar Aponte MD, PhD Work Phone: Start: 02-04-2023 Fundus photography w/interpretation & report Ashvin Azul MD Work Phone: Start: 01-08-2023 End: 01-08-2023 Intravitreal njx pharmacologic agt spx Manohar Aponte MD, PhD Work Phone: Start: 01-08-2023 Computerized ophthal blanca imaging retina Manohar Aponte MD, PhD Work Phone: Start: 10-03-2022 Fundus photography w/interpretation & report Ashvin Azul MD Work Phone: Start: 09-25-2022 End: 09-25-2022 Intravitreal njx pharmacologic agt spx Manohar Aponte MD, PhD Work Phone: Start: 09-25-2022 Computerized ophthal blanca imaging retina Manohar Aponte MD, PhD Work Phone: Start: 07-03-2022 End: 07-03-2022 Intravitreal njx pharmacologic agt spx Manohar Aponte MD, PhD Work Phone: Start: 07-03-2022 Computerized ophthal blanca imaging retina Manohar Aponte MD, PhD Work Phone: Start: 05-08-2022 End: 05-08-2022 Intravitreal njx pharmacologic agt spx Manohar Aponte MD, PhD Work Phone: Start: 05-08-2022 Computerized ophthal blanca imaging retina Manohar Aponte MD, PhD Work Phone: Start: 03-27-2022 End: 03-27-2022 Intravitreal njx pharmacologic agt spx Manohar Aponte MD, PhD Work Phone: Start: 03-27-2022 Computerized ophthal blanca imaging retina Manohar Aponte MD, PhD Work Phone: Start: 02-18-2022 End: 02-18-2022 Computerized ophthalmic imaging retina Ashvin Azul MD Work Phone: Start: 12-26-2021 Computerized ophthal blanca imaging retina Manohar Aponte MD, PhD Work Phone: Plan of Treatment Date Care Activity Detail Author Start: 05-28-2024 End: 11-04-2024 OCT MACULA CIRRUS OU (BOTH EYES) OCT MACULA CIRRUS OU (BOTH EYES) OPHT Imaging Routine Severe 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 2 diabetes mellitus (HCC) Expected: 05/28/2024, Expires: 11/04/2024 [facility] Work Phone: Payers Date Payer Category Payer Medicare UHC AARP MEDICAR E UHC AARP MEDICARE HMO [id number] 2021-Present [phone] [address] [address] [place] [address] O [id number] 2021 Medicare UHC AARP MEDICAR E [facility] AAR MEDICARE O [id number] 2021-Present [phone] [address] [address] [place] [address] O [id number] 2021 Medicare [id number] 1955 Unknown [id number] 1955 Unknown [id number] Unknown [facility] Social History Date Type Detail Facility Start: 05-23-2021 End: 05-13-2022 Tobacco smoking status NHIS Never smoked tobacco [facility] Start: 12-26-2021 End: 05-14-2023 Alcohol intake Current drinker of alcohol (finding) [facility] Start: 1955 Sex Assigned At Not on file [facility] Start: 12-16-2021 End: 07-25-2022 Exposure to SARS-CoV-2 (event) Not sure [facility] Start: 05-23-2021 End: 05-13-2022 Tobacco use and exposure Smokeless tobacco non-user [facility] Start: 05-14-2023 History of Social function [facility] Start: 05-14-2023 Tobacco use panel [facility] National Score (1-10 0), lower number is lower risk 59 [facility] Medical Equipment Procedure Code Equipment Code Equipment Origin al Text Equipment Identifier Dates Lens Acrysof Iq +23 Diopter Natural Stableforce 0 D Biconvex 118.7 - [id number] Start: 06-20-2022 Lens Acrysof Iq +22.5 Diopter Natural Stableforce 0 D Biconvex 118.7 - [id number] Start: 07-25-2022 Clinical Notes 12-26-2021 to 08-06-2023 Patient InstructionsManohar Aponte MD, PhD - 05/14/2023 4:07 PM EDTPatient InstructionsAshvin Azul MD - 02/04/2023 10:54 AM EDTPatient Tha Aponte MD, PhD - 01/08/2023 1:38 PM EDT Note Date & Type Note Facility 08-06-2023 Note HNO ID: [id number] Author: Manohar Aponte MD, PhD Service: ? Author Type: Physician Type: Progress Notes Filed: 08/06/2023 1:10 PM Note Text: Referred by Dr. Albarado for diabetic retinopathy 1. Diabetes mellitus with severe nonproliferative diabetic retinopathy both eyes and macular edema both eyes blood pressure/bg control S/p avastin previously with good response 2. Nuclear sclerosis right eye 3. ocular hypertension: monitor this Intraocular pressure left eye elevated but this could be steroid response, she is tapering 4. Posterior chamber intraocular lens (PCIOL) both eyes (Dr. Azul) -stable/observe - 07-25-2022 right - 06-20-2022 left Plan: S/p Avastin 12 week ago (planned extension) both eyes with stable nonfoveal edema OU Rec avastin both eyes today Extend to 16 wks for full exam, may stop injections I have confirmed and edited as necessary the relevant ophthalmic history, ROS, and the neuro exam findings as obtained by others. I have seen and examined this patient. I have discussed the case and the management of this patient's care with the Resident/Fellow, if applicable. I also have reviewed and agree with the assessment and plan as stated above and agree with all of its relevant components. Manohar Aponte MD [facility] 05-14-2023 Note HNO ID: [id number] Author: Manohar Aponte MD, PhD Service: ? Author Type: Physician Type: Progress Notes Filed: 05/14/2023 4:09 PM Note Text: Referred by Dr. Albarado for diabetic retinopathy 1. Diabetes mellitus with severe nonproliferative diabetic retinopathy both eyes and macular edema both eyes blood pressure/bg control S/p avastin previously with good response 2. Nuclear sclerosis right eye 3. ocular hypertension: monitor this Intraocular pressure left eye elevated but this could be steroid response, she is tapering 4. Posterior chamber intraocular lens (PCIOL) both eyes (Dr. Azul) -stable/observe - 07-25-2022 right - 06-20-2022 left Plan: Avastin 9 weeks ago both eyes with improved IRF but persistent Rec avastin both eyes today Extend to 11 wks STI Full exam Sharad I have confirmed and edited as necessary the relevant ophthalmic history, ROS, and the neuro exam findings as obtained by others. I have seen and examined this patient. I have discussed the case and the management of this patient's care with the Resident/Fellow, if applicable. I also have reviewed and agree with the assessment and plan as stated above and agree with all of its relevant components. Manohar Aponte MD [facility] 05-14-2023 Instructions Manohar Aponte MD, PhD - 05/14/2023 4:09 PM EDT Post Injection Patient Information You had eye injection(s) today. These are your after injection instructions. Today: Preservative free artificial tears 1 drop every hour while awake as needed Tomorrow: Preservative free artificial tears 1 drop every 2 hours while awake as needed Care instructions after eye injections: Do not rub or touch your eye other than dabbing lightly with a tissue An thju-bmm-ohuicky pain reliever (i.e. Tylenol) can be used for mild soreness Use artificial tears/lubricating drops once an hour as needed for comfort (chill the tears in the refrigerator for more comfort). If you are using the tears more than 4 times a day they need to be the preservative free kind Warm or cool compresses are okay It is okay to shower and wash your face. No swimming pools or saunas for 24 hours COMMON symptoms after successful eye injections: Mild to moderate pain or irritation beginning the day of the injection. This should begin to improve the following day. Eyelash in the eye or gilson/gritty sensation Tearing Mild floaters or bubbles in your vision - usually resolves after 1-2 days Bloody tears for 1-2 days after treatment Eye Redness Also known as subconjunctival hemorrhage This bruise can cover the entire white part of the eye and may last a few weeks CONCERNING symptoms after eye injections: Severe, constant pain Worsening pain after the first day Decreased vision Severe, constant floaters Curtain or veil in your vision New eye redness that was not there after the injection and covers the whole eye Please call the office immediately for any of the above listed concerning symptoms or with any other questions. If it is after hours please call [phone] which will give instructions on how to reach the eye doctor motors and controls tester documented in this encounter [facility] 05-14-2023 History of Present illness Narrative Referred by Dr. Albarado for diabetic retinopathy 1. Diabetes mellitus with severe nonproliferative diabetic retinopathy both eyes and macular edema both eyes blood pressure/bg control S/p avastin previously with good response 2. Nuclear sclerosis right eye 3. ocular hypertension: monitor this Intraocular pressure left eye elevated but this could be steroid response, she is tapering 4. Posterior chamber intraocular lens (PCIOL) both eyes (Dr. Azul) -stable/observe - 07-25-2022 right - 06-20-2022 left Plan: Avastin 9 weeks ago both eyes with improved IRF but persistent Rec avastin both eyes today Extend to 11 wks STI Full exam Sharad I have confirmed and edited as necessary the relevant ophthalmic history, ROS, and the neuro exam findings as obtained by others. I have seen and examined this patient. I have discussed the case and the management of this patient's care with the Resident/Fellow, if applicable. I also have reviewed and agree with the assessment and plan as stated above and agree with all of its relevant components. Manohar Aponte MD documented in this encounter [facility] 03-12-2023 Note HNO ID: [id number] Author: Manohar Aponte MD, PhD Service: ? Author Type: Physician Type: Progress Notes Filed: 03/12/2023 1:58 PM Note Text: Referred by Dr. Albarado for diabetic retinopathy 1. Diabetes mellitus with severe nonproliferative diabetic retinopathy both eyes and macular edema both eyes blood pressure/bg control S/p avastin previously with good response 2. Nuclear sclerosis right eye 3. ocular hypertension: monitor this Intraocular pressure left eye elevated but this could be steroid response, she is tapering 4. Posterior chamber intraocular lens (PCIOL) both eyes (Dr. Azul) -stable/observe - 07-25-2022 right - 06-20-2022 left Plan: Avastin 9 weeks ago both eyes with improved IRF Rec avastin both eyes today Return 9-10 wks STI Full exam Sharad I have confirmed and edited as necessary the relevant ophthalmic history, ROS, and the neuro exam findings as obtained by others. I have seen and examined this patient. I have discussed the case and the management of this patient's care with the Resident/Fellow, if applicable. I also have reviewed and agree with the assessment and plan as stated above and agree with all of its relevant components. Manohar Aponte MD [facility] 02-04-2023 Note HNO ID: [id number] Author: Ashvin Azul MD Service: ? Author Type: Physician Type: Progress Notes Filed: 02/04/2023 11:34 AM Note Text: ASSESSMENT/PLAN: 1. Severe 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 2 diabetes mellitus (HCC) - ICD9: 250.50, 362.07, 362.06, ICD10: E11.3413 (primary diagnosis) - FUNDUS PHOTOS OU - Continue to monitor with Dr. Aponte - Please keep your blood sugar under good control to minimize risk of ocular complications from diabetes. 2. Pseudophakia, both eyes - ICD9: V43.1, ICD10: Z96.1 - Intraocular lens in good position both eyes 3. Essential hypertension - ICD9: 401.9, ICD10: I10 4. Hyperlipidemia, unspecified hyperlipidemia type - ICD9: 272.4, ICD10: E78.5 - Continue to monitor with PCP I have confirmed and edited as necessary the relevant ophthalmic history, review of systems, surgical history, and ophthalmological examination findings as obtained by the ophthalmic technical staff. I have seen and examined Haider Parisi. I have discussed the examination findings, diagnosis, and treatment options with Haider Parisi and/or her family. I have also reviewed and agree with the assessment and plan as stated above and agree with all its relevant components. I gave the patient the opportunity to ask questions about the findings, diagnosis, and treatment options. Ashvin Azul MD [facility] 02-04-2023 Instructions Ashvin Azul MD - 02/04/2023 10:55 AM EDT Please keep your blood sugar under good control to minimize risk of ocular complications from diabetes. If you have any questions please contact our office at [phone]. After office hours or on the weekend, please call Dr. Azul on his cell phone at [phone]. documented in this encounter [facility] 02-04-2023 History of Present illness Narrative ASSESSMENT/PLAN: 1. Severe 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 2 diabetes mellitus (HCC) - ICD9: 250.50, 362.07, 362.06, ICD10: E11.3413 (primary diagnosis) - FUNDUS PHOTOS OU - Continue to monitor with Dr. Aponte - Please keep your blood sugar under good control to minimize risk of ocular complications from diabetes. 2. Pseudophakia, both eyes - ICD9: V43.1, ICD10: Z96.1 - Intraocular lens in good position both eyes 3. Essential hypertension - ICD9: 401.9, ICD10: I10 4. Hyperlipidemia, unspecified hyperlipidemia type - ICD9: 272.4, ICD10: E78.5 - Continue to monitor with PCP I have confirmed and edited as necessary the relevant ophthalmic history, review of systems, surgical history, and ophthalmological examination findings as obtained by the ophthalmic technical staff. I have seen and examined Haider Parisi. I have discussed the examination findings, diagnosis, and treatment options with Haider Parisi and/or her family. I have also reviewed and agree with the assessment and plan as stated above and agree with all its relevant components. I gave the patient the opportunity to ask questions about the findings, diagnosis, and treatment options. Ashvin Azul MD documented in this encounter [facility] 01-08-2023 Note HNO ID: [id number] Author: Manohar Aponte MD, PhD Service: ? Author Type: Physician Type: Progress Notes Filed: 01/08/2023 1:56 PM Note Text: Referred by Dr. Albarado for diabetic retinopathy 1. Diabetes mellitus with severe nonproliferative diabetic retinopathy both eyes and macular edema both eyes blood pressure/bg control S/p avastin previously with good response 2. Nuclear sclerosis right eye 3. ocular hypertension: monitor this Intraocular pressure left eye elevated but this could be steroid response, she is tapering 4. Posterior chamber intraocular lens (PCIOL) both eyes (Dr. Azul) -stable/observe - 07-25-2022 right - 06-20-2022 left Plan: Avastin 3.5 mo ago with stable IRF right eye, increased cystoid macular edema OS Rec avastin both eyes today Decrease interval to 9 wks full exam I have confirmed and edited as necessary the relevant ophthalmic history, ROS, and the neuro exam findings as obtained by others. I have seen and examined this patient. I have discussed the case and the management of this patient's care with the Resident/Fellow, if applicable. I also have reviewed and agree with the assessment and plan as stated above and agree with all of its relevant components. Manohar Aponte MD [facility] 01-08-2023 Instructions Manohar Aponte MD, PhD - 01/08/2023 1:55 PM EDT Post-Procedure Patient Information Injection [ ] You had an injection into the eye. [ ] You had an injection adjacent to the eye. Tearing and some redness are common after an eye injection. If the eye feels irritated, try to keep it closed; some patients find that a mild pain medicine such as acetaminophen helps. If tearing or pain persists the next day, please call. The redness may take some days to a week to resolve. If you notice increasing pain, redness or blurred vision, please call the office. Loss of central or peripheral vision should prompt a call to us. Please call if you have any questions or concerns. For Questions or an Appointment, please call: [phone] Visit us online at [email or web address]. documented in this encounter [facility] 01-08-2023 History of Present illness Narrative Referred by Dr. Albarado for diabetic retinopathy 1. Diabetes mellitus with severe nonproliferative diabetic retinopathy both eyes and macular edema both eyes blood pressure/bg control S/p avastin previously with good response 2. Nuclear sclerosis right eye 3. ocular hypertension: monitor this Intraocular pressure left eye elevated but this could be steroid response, she is tapering 4. Posterior chamber intraocular lens (PCIOL) both eyes (Dr. Azul) -stable/observe - 07-25-2022 right - 06-20-2022 left Plan: Avastin 3.5 mo ago with stable IRF right eye, increased cystoid macular edema OS Rec avastin both eyes today Decrease interval to 9 wks full exam I have confirmed and edited as necessary the relevant ophthalmic history, ROS, and the neuro exam findings as obtained by others. I have seen and examined this patient. I have discussed the case and the management of this patient's care with the Resident/Fellow, if applicable. I also have reviewed and agree with the assessment and plan as stated above and agree with all of its relevant components. Manohar Aponte MD documented in this encounter [facility] 12-29-2022 History of Present illness Narrative She is here for new patient visitShe was referred here secondary to chronic kidney diseaseMy evaluation and plan is communicated back via the electronic medical recordBlood work was last obtained on December 29BUN is 89 with a creatinine of 2.27Estimated GFR is 23Bicarb is 20 with an elevated chloride of 112 sodium and potassium are within normal limitsIn my system I really do not have any other blood work to compare this to.A kidney and bladder ultrasound was performed also in December.The right kidney is 11 cm and the right kidney is unremarkableThe left kidney is 9.1 cm.The ultrasound is pretty much unremarkableMedications are reviewed and they include amlodipine, aspirin, carvedilol, Zetia, gabapentin, insulin, iron, losartan and VivekityHagriselda Had DM for 15 yearsWas placed on Kerendia but too expensiveShe was on aldactone and K went upShe has swellingNo issue with urinationShe live sin Zuleima stopped taking IbuprofenTakes Tylenol occasionally. [facility] DO Work Phone: 10-03-2022 Note HNO ID: [id number] Author: Ashvin Azul MD Service: ? Author Type: Physician Type: Progress Notes Filed: 10/03/2022 3:54 PM Note Text: ASSESSMENT/PLAN: 1. 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 -continue care with Dr. Apnote as scheduled for 01-08-2023 for Dilated fundus exam/ possible intra-vitreal injection/ Avastin both eyes. 2. Status post cataract extraction and insertion of intraocular lens of right eye - ICD9: V45.61, V43.1, ICD10: Z98.41, Z96.1 - 07-25-2022 3. Status post cataract extraction and insertion of intraocular lens of left eye - ICD9: V45.61, V43.1, ICD10: Z98.42, Z96.1 - 06-20-2022 - Dr. Sarah Vera for refraction and glasses. 4. Essential hypertension - ICD9: 401.9, ICD10: I10 5. Hyperlipidemia, unspecified hyperlipidemia type - ICD9: 272.4, ICD10: E78.5 -continue care with PCP I have confirmed and edited as necessary the relevant ophthalmic history, review of systems, surgical history, and ophthalmological examination findings as obtained by the ophthalmic technical staff. I have seen and examined Haider Parisi. I have discussed the examination findings, diagnosis, and treatment options with Haider Parisi and/or her family. I have also reviewed and agree with the assessment and plan as stated above and agree with all its relevant components. I gave the patient the opportunity to ask questions about the findings, diagnosis, and treatment options. Ashvin Azul MD [facility] 10-03-2022 Instructions Ashvin Azul MD - 10/03/2022 3:48 PM EST Systane Complete Artificial Tears - Use 1 Drop into both eyes three times a day. Please keep your blood sugar under good control to minimize risk of ocular complications from diabetes. Dr. Sarah Vera for refraction and glasses If you have any questions please contact our office at [phone]. After office hours or on the weekend, please call Dr. Azul on his cell phone at [phone]. documented in this encounter [facility] 10-03-2022 History of Present illness Narrative ASSESSMENT/PLAN: 1. 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 -continue care with Dr. Aponte as scheduled for 01-08-2023 for Dilated fundus exam/ possible intra-vitreal injection/ Avastin both eyes. 2. Status post cataract extraction and insertion of intraocular lens of right eye - ICD9: V45.61, V43.1, ICD10: Z98.41, Z96.1 - 07-25-2022 3. Status post cataract extraction and insertion of intraocular lens of left eye - ICD9: V45.61, V43.1, ICD10: Z98.42, Z96.1 - 06-20-2022 - Dr. Sarah Vera for refraction and glasses. 4. Essential hypertension - ICD9: 401.9, ICD10: I10 5. Hyperlipidemia, unspecified hyperlipidemia type - ICD9: 272.4, ICD10: E78.5 -continue care with PCP I have confirmed and edited as necessary the relevant ophthalmic history, review of systems, surgical history, and ophthalmological examination findings as obtained by the ophthalmic technical staff. I have seen and examined Haider Parisi. I have discussed the examination findings, diagnosis, and treatment options with Haider Parisi and/or her family. I have also reviewed and agree with the assessment and plan as stated above and agree with all its relevant components. I gave the patient the opportunity to ask questions about the findings, diagnosis, and treatment options. Ashvin Azul MD documented in this encounter [facility] 09-25-2022 Note HNO ID: [id number] Author: Manohar Aponte MD, PhD Service: ? Author Type: Physician Type: Progress Notes Filed: 09/25/2022 1:55 PM Note Text: Referred by Dr. Albarado for diabetic retinopathy 1. Diabetes mellitus with severe nonproliferative diabetic retinopathy both eyes and macular edema both eyes blood pressure/bg control S/p avastin previously with good response 2. Nuclear sclerosis right eye 3. ocular hypertension: monitor this Intraocular pressure left eye elevated but this could be steroid response, she is tapering 4. Posterior chamber intraocular lens (PCIOL) both eyes (Dr. Azul) -stable/observe Plan: Avastin 12 wks ago with nonfoveal edema Intraocular pressure elevated today Rec avastin both eyes today Extend to 14-15 wks for sti Full exam in March Non-CI edema OU I have confirmed and edited as necessary the relevant ophthalmic history, ROS, and the neuro exam findings as obtained by others. I have seen and examined this patient. I have discussed the case and the management of this patient's care with the Resident/Fellow, if applicable. I also have reviewed and agree with the assessment and plan as stated above and agree with all of its relevant components. Manohar Aponte MD [facility] 09-25-2022 Instructions Manohar Aponte MD, PhD - 09/25/2022 1:54 PM EST Post-Injection Patient Information You had an injection into the eye today. Tearing and some redness are common after an eye injection. If the eye feels irritated, try to keep it closed; some patients find that a mild pain medicine such as acetaminophen helps. If tearing or pain persists the next day, please call. The redness may take some days to a week to resolve. If you notice increasing pain, redness or blurred vision, please call the office. Loss of central or peripheral vision should prompt a call to us. Please call if you have any questions or concerns. For Questions or an Appointment, please call: [phone] Visit us online at [email or web address]. documented in this encounter [facility] 09-25-2022 History of Present illness Narrative Referred by Dr. Albarado for diabetic retinopathy 1. Diabetes mellitus with severe nonproliferative diabetic retinopathy both eyes and macular edema both eyes blood pressure/bg control S/p avastin previously with good response 2. Nuclear sclerosis right eye 3. ocular hypertension: monitor this Intraocular pressure left eye elevated but this could be steroid response, she is tapering 4. Posterior chamber intraocular lens (PCIOL) both eyes (Dr. Azul) -stable/observe Plan: Avastin 12 wks ago with nonfoveal edema Intraocular pressure elevated today Rec avastin both eyes today Extend to 14-15 wks for sti Full exam in March Non-CI edema OU I have confirmed and edited as necessary the relevant ophthalmic history, ROS, and the neuro exam findings as obtained by others. I have seen and examined this patient. I have discussed the case and the management of this patient's care with the Resident/Fellow, if applicable. I also have reviewed and agree with the assessment and plan as stated above and agree with all of its relevant components. Manohar Aponte MD documented in this encounter [facility] 07-26-2022 Instructions Ashvin Azul MD - 07/26/2022 9:04 AM EST - use medication as directed Current Ophthalmic Meds keTORolac (ACULAR) 0.5 % ophthalmic solution Use 1 Drop in the right eye four times daily. prednisoLONE acetate (PRED FORTE) 1 % ophthalmic suspension Use 1 Drop in the right eye four times daily. Systane Complete Artificial Tears - Use 1 Drop into both eyes three times a day. If you have any questions please contact our office at [phone]. After office hours or on the weekend, please call Dr. Azul on his cell phone at [phone]. documented in this encounter [facility] 07-26-2022 History of Present illness Narrative ASSESSMENT/PLAN: 1. Status post cataract extraction and insertion of intraocular lens of right eye - ICD9: V45.61, V43.1, ICD10: Z98.41, Z96.1 (primary diagnosis) - use medication as directed Current Ophthalmic Meds keTORolac (ACULAR) 0.5 % ophthalmic solution Use 1 Drop in the right eye four times daily. prednisoLONE acetate (PRED FORTE) 1 % ophthalmic suspension Use 1 Drop in the right eye four times daily. Systane Complete Artificial Tears - Use 1 Drop into both eyes three times a day. 2. Status post cataract extraction and insertion of intraocular lens of left eye - ICD9: V45.61, V43.1, ICD10: Z98.42, Z96.1 - Stable / Monitor I have confirmed and edited as necessary the relevant ophthalmic history, review of systems, surgical history, and ophthalmological examination findings as obtained by the ophthalmic technical staff. I have seen and examined Haider Parisi. I have discussed the examination findings, diagnosis, and treatment options with Haider Parisi and/or her family. I have also reviewed and agree with the assessment and plan as stated above and agree with all its relevant components. I gave the patient the opportunity to ask questions about the findings, diagnosis, and treatment options. Ashvin Azul MD documented in this encounter [facility] 07-03-2022 History of Present illness Narrative Referred by Dr. Albarado for diabetic retinopathy 1. Diabetes mellitus with severe nonproliferative diabetic retinopathy both eyes and macular edema both eyes blood pressure/bg control S/p avastin previously with good response 2. Nuclear sclerosis right eye 3. ocular hypertension: monitor this Intraocular pressure left eye elevated but this could be steroid response, she is tapering 4. Posterior chamber intraocular lens (PCIOL) left eye (Dr. Azul) Plan: Avastin 8 wks ago, much improved Intraocular pressure elevated today Rec avastin both eyes today Extend to 10-12wks full exam Non-CI edema OU Ok to proceed with Ce/intraocular lens OD I have confirmed and edited as necessary the relevant ophthalmic history, ROS, and the neuro exam findings as obtained by others. I have seen and examined this patient. I have discussed the case and the management of this patient's care with the Resident/Fellow, if applicable. I also have reviewed and agree with the assessment and plan as stated above and agree with all of its relevant components. Manohar Aponte MD documented in this encounter [facility] 06-28-2022 History and physical note HISTORY AND PHYSICAL EXAMINATION SERVICE DATE: 06/28/2022 SERVICE TIME: 11:29 AM PRIMARY CARE PHYSICIAN: Kusum Otoole DO REASON FOR VISIT: Haider Parisi is a 66 year old female who is being seen for Combined forms of age-related cataract of right eye The patient has the following: ACTIVE PROBLEM LIST Type 2 Diabetes Mellitus (Hcc) Spondylosis of Lumbosacral Spine Without Myelopathy Recurrent Falls Lumbar Radiculopathy Injury of Kidney Hypercalcemia Contusion of Chest Wall Severe Nonproliferative Diabetic Retinopathy of Both Eyes With Macular Edema Associated With Type 2 Diabetes Mellitus (Hcc) Hypertension Hyperlipidemia Combined Forms of Age-Related Cataract of Right Eye Essential Hypertension Ptosis of Both Eyelids Status Post Cataract Extraction and Insertion of Intraocular Lens of Left Eye SUBJECTIVE CHIEF COMPLAINT: Combined forms of age-related cataract of right eye HPI: Blurred vision in right eye, Difficulty reading small print, glare, halos PAST MEDICAL HISTORY Diagnosis Date Basal cell carcinoma (BCC) of eyelid left lower lid Essential hypertension Mixed hyperlipidemia Hyperlipidemia Polyp of vagina ENDOCERVICAL Type II or unspecified type diabetes mellitus without mention of complication, uncontrolled PAST SURGICAL HISTORY Procedure Laterality Date PAST SURGICAL HISTORY OF Left removal of basal cell carcinoma lower lid REMV CATARACT EXTRACAP,INSERT LENS Left 06/20/2022 [id number] 23.0D FAMILY HISTORY Problem Relation Age of Onset Cancer Mother colon Diabetes Father Heart Father No Ocular Disease No Family History SOCIAL HISTORY: Social History Tobacco Use Smoking status: Never Smokeless tobacco: Never Substance Use Topics Alcohol use: Yes Comment: occasionally Drug use: No MEDICATIONS: Prior to Admission medications as of 06/28/22 1117 Medication Sig Last Dose Taking ezetimibe (ZETIA) 10 mg tablet Take 10 mg by mouth once daily. Taking Yes cholecalciferol, vitamin D3, (VITAMIN D3 ORAL) Take by mouth. Taking Yes fluorometholone (FML LIQUID FILM) 0.1 % ophthalmic suspension Use 1 Drop in the right eye three times daily. Taking Yes HUMALOG MIX 50-50 KWIKPEN 100 unit/mL (50-50) inpn 35 Units twice daily with meals. Taking Differently Yes LEVEMIR FLEXTOUCH U-100 INSULIN 100 unit/mL (3 mL) injection pen INJECT 50 UNITS SUBCUTANEOUSLY EVERY MORNING Taking Yes vit C/E/Zn/coppr/lutein/zeaxan (PRESERVISION AREDS-2 ORAL) Take 1 capsule by mouth once daily. Taking Yes omeprazole (PRILOSEC) 20 mg capsule Take 20 mg by mouth once daily. Taking Yes amLODIPine (NORVASC) 5 mg tablet Take 5 mg by mouth once daily. Taking Yes ONETOUCH ULTRA2 METER USE TO CHECK BLOOD SUGAR DIRECTED Taking Yes TRULICITY 0.75 mg/0.5 mL pen injector INJECT 1 SYRINGE SUBCUTANEOUSLY EVERY WEEK Taking Yes gabapentin (NEURONTIN) 300 mg capsule TAKE 1 CAPSULE BY MOUTH THREE TIMES DAILY NEEDED AND 1 TO 2 CAPSULES AT BEDTIME NEEDED FOR PAIN Taking Yes losartan (COZAAR) 100 mg tablet Take 100 mg by mouth once daily. Taking Yes JANUVIA 100 mg tablet Take 100 mg by mouth once daily. Taking Yes loratadine 10 mg cap Take 10 mg by mouth once daily. Taking Yes aspirin, enteric coated (ASPIRIN, ENTERIC COATED) 81 mg EC tablet Take 81 mg by mouth once daily. Taking Yes ascorbic acid (RITO-C ORAL) Take 2,000 mg by mouth once daily. Taking Yes ibuprofen (MOTRIN) 200 mg tablet Take 200 mg by mouth. 1-2 daily Taking Yes vit C/vit E acet/lutein/min (OCUVITE LUTEIN ORAL) Take by mouth once daily. Taking Yes SITAGLIPTIN PHOSPHATE (JANUVIA ORAL) Take 100 mg by mouth once daily. Taking Yes valsartan (DIOVAN) 80 mg tablet Take 80 mg by mouth once daily. Taking Yes GLIMEPIRIDE (AMARYL ORAL) Take 4 mg by mouth twice daily. Taking Yes GLUCOPHAGE XR 500 MG 24 HR TAB Take by mouth. Taking Yes keTORolac (ACULAR) 0.5 % ophthalmic solution Use 1 Drop in the left eye three times daily. prednisoLONE acetate (PRED FORTE, ECONOPRED PLUS) 1 % ophthalmic suspension Use 1 Drop in the left eye three times daily. keTORolac (ACULAR) 0.5 % ophthalmic solution Use 1 Drop in the right eye four times daily. prednisoLONE acetate (PRED FORTE) 1 % ophthalmic suspension Use 1 Drop in the right eye four times daily. cephalexin (KEFLEX ORAL) Take by mouth. Patient not taking: No sig reported Not Taking ciprofloxacin HCl (CIPRO ORAL) Take by mouth. Patient not taking: Reported on 06/28/2022 Not Taking metFORMIN (GLUCOPHAGE) 1,000 mg tablet Take 1 tablet by mouth twice daily. Patient not taking: No sig reported Not Taking azithromycin (ZITHROMAX Z-SOFIA) 250 mg tablet Take 2 tablets by mouth day one, then 1 tablet daily until gone. Patient not taking: No sig reported Not Taking Benzonatate (TESSALON) 200 mg capsule Take 200 mg by mouth three times daily as needed for Cough. Patient not taking: No sig reported Not Taking ASCRIPTIN 325 MG TAB Not Taking No medication comments found. CURRENT ALLERGIES: ALLERGIES Allergen Reactions Environmental [Othe* nasal congestion Lisinopril Rash REVIEW OF SYSTEMS: PAIN ASSESSMENT: General: No weight loss, malaise or fevers. Neuro: No Hx of stroke or seizures Respiratory: No history of current cough or dyspnea, or pneumonia in the past 6 weeks. No history of respiratory/pulmonary symptoms or problems Cardiovascular: Positive for: Hypertension GI: No history of GI symptoms or problems. No history of esophageal varices, recent ascites, or ETOH greater than 2 drinks per day. : No history of UTI in past 6 weeks. No history of renal failure. Not currently on or requiring dialysis. No history of symptoms or problems. 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 : N/A Endocrine: Diabetes Mellitus on insulin, Diabetic Retinopathy Hematology: No history of bleeding or clotting disorder. Pt is not taking anti-coagulation or platelet medications. No history of hematological symptoms or problems. Oncology: No history of CA metastasis, chemo within 30 days, or radiotherapy within 90 days. Has not lost 10% of body wt in 6 months. No history of oncological symptoms or problems. Psych: No history of psychiatric symptoms or problems. Musculoskeletal: Negative for joint pain or swelling, back pain or muscle pain. Skin: Negative for lesions, rash and itching. PHYSICAL EXAM: VITALS: BP 165/72 Pulse 89 LMP 05/04/2006 General: Alert and oriented Skin: Normal color, no rash, no lesions. HEENT: EOM, pupils equal, round and reactive. Cardiovascular: Normal S1 & S2, no rubs, murmurs or gallops. No JVD. Pulse regular. Lungs: Normal breath sounds, no wheezes or crackles. Abdomen: Soft, non-tender, no rigidity. Extremities: No deformity, no edema or tenderness, no joint swelling or clubbing. Neurological: Normal cognition and motor skills. Pulses: Carotid and radial pulses normal +2. Diagnostic tests reviewed for today's visit: No new labs or tests ASSESSMENT Medication and Non-Pharmacologic VTE Prophylaxis/Anticoagulants VTE Prophylaxis: VTE prophylaxis appropriate Impression: Diabetes HTN Hyperlipidemia Morbid Obesity Clinical Risk Factors for Possible Cardiac Complications: Insulin therapy for Diabetes Mellitus Patient is scheduled for a low-risk procedure. FUNCTIONAL STATUS: Walk indoors, such as around the house (1.75 METs) Do light work around the house, such as dusting or washing dishes (2.70 METs) Take care of self, that is eating, dressing, bathing, using the toilet (2.75 METs) Functional Class (NYHA): N/A [facility]: Not obtained PLAN CONSULTS: Patient does not require consults for optimization at this time. The Following Tests/Procedures Have Been Initiated: None Instructions Given to Patient: Patient given verbal and written preop instructions and voices comprehension and compliance. SIGNATURE: Ashvin Azul MD PATIENT NAME: Haider Parisi DATE: June 28, 2022 TIME: 11:29 AM PAGER/CONTACT #: documented in this encounter [facility] 06-28-2022 History of Present illness Narrative ASSESSMENT/PLAN: 1. 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 Haider Parisi has confirmed that she is no longer able to function adequately on a day-to-day basis because of her current visual condition. Further, it is my medical opinion that the cataract is the primary cause, or at least a significantly contributory cause of her visual dysfunction. With uncomplicated cataract surgery and lens implantation, it is my expectation that her visual function and quality of life will improve, significantly. The risks, benefits, alternatives, personnel and complications of cataract surgery with lens implantation were discussed with Haider Parisi in detail. she appeared to understand and asked that I proceed with plans for surgery. PHYSICAL EXAM: Vital Signs: Blood pressure 165/72, pulse 89, last menstrual period 05/04/2006. Respiratory: Normal breath sounds, no wheezing. CARD: Normal heart sounds 1 & 2, normal sinus rhythm. Patient wishes to have traditional cataract surgery with basic Intraocular lens Right eye on 07/25/2022 at [facility]. Patient wishes to have cataract surgery with the option stated above. Patient understands that an intraocular lens implant does not necessarily replace the need for glasses. Patient understands that it is impossible for the surgeon to inform him/her of every possible complication that may occur. The surgeon has answered all of the patient's questions. Patient understands that if he/she has a mature or dense cataract, pseudoexfoliation cataract, or history of use of Flomax, he/she may require the use of Maluyugin Ring and/or Vision Blue during surgery. Patient understands the risks, benefits, and alternatives to surgery. Patient to bring the following medications to surgery, UNOPENED: Current Ophthalmic Meds keTORolac (ACULAR) 0.5 % ophthalmic solution Starting on 07/25/2022. Use 1 Drop in the right eye four times daily. prednisoLONE acetate (PRED FORTE) 1 % ophthalmic suspension Starting on 07/25/2022. Use 1 Drop in the right eye four times daily. Continue: Current Ophthalmic Meds fluorometholone (FML LIQUID FILM) 0.1 % ophthalmic suspension Use 1 Drop in the right eye three times daily. Systane Complete Artificial Tears - Use 1 Drop into both eyes three times a day. Prognosis poor due to severe diabetic retinopathy 2. 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 3. Ptosis of both eyelids - ICD9: 374.30, ICD10: H02.403 Discussed with patient the need for ptosis repair in the near future 4. Status post cataract extraction and insertion of intraocular lens of left eye - ICD9: V45.61, V43.1, ICD10: Z98.42, Z96.1 Intraocular lens in good position, Left eye Continue: Current Ophthalmic Meds keTORolac (ACULAR) 0.5 % ophthalmic solution Use 1 Drop in the left eye three times daily. prednisoLONE acetate (PRED FORTE, ECONOPRED PLUS) 1 % ophthalmic suspension Use 1 Drop in the left eye three times daily. Systane Complete Artificial Tears - Use 1 Drop into both eyes three times a day. 5. Essential hypertension - ICD9: 401.9, ICD10: I10 6. Hyperlipidemia, unspecified hyperlipidemia type - ICD9: 272.4, ICD10: E78.5 Manage care with primary care physician I have confirmed and edited as necessary the relevant ophthalmic history, review of systems, surgical history, and ophthalmological examination findings as obtained by the ophthalmic technical staff. I have seen and examined Haider Parisi. I have discussed the examination findings, diagnosis, and treatment options with Haider Parisi and/or her family. I have also reviewed and agree with the assessment and plan as stated above and agree with all its relevant components. I gave the patient the opportunity to ask questions about the findings, diagnosis, and treatment options. Ashvin Azul MD documented in this encounter [facility] 06-28-2022 Instructions Ashvin Azul MD - 06/28/2022 11:21 AM EDT Continue: Current Ophthalmic Meds fluorometholone (FML LIQUID FILM) 0.1 % ophthalmic suspension Use 1 Drop in the right eye three times daily. keTORolac (ACULAR) 0.5 % ophthalmic solution Use 1 Drop in the left eye three times daily. prednisoLONE acetate (PRED FORTE, ECONOPRED PLUS) 1 % ophthalmic suspension Use 1 Drop in the left eye three times daily. Systane Complete Artificial Tears - Use 1 Drop into both eyes three times a day. Bring the following medications to surgery, UNOPENED!!!! DO NOT START!!! Current Ophthalmic Meds keTORolac (ACULAR) 0.5 % ophthalmic solution Starting on 07/25/2022. Use 1 Drop in the right eye four times daily. prednisoLONE acetate (PRED FORTE) 1 % ophthalmic suspension Starting on 07/25/2022. Use 1 Drop in the right eye four times daily. If you have any questions please contact our office at [phone]. After office hours or on the weekend, please call Dr. Azul on his cell phone at [phone]. documented in this encounter [facility] 06-21-2022 History of Present illness Narrative ASSESSMENT/PLAN: 1. Status post cataract extraction and insertion of intraocular lens of left eye - ICD9: V45.61, V43.1, ICD10: Z98.42, Z96.1 (primary diagnosis) Current Ophthalmic Meds keTORolac (ACULAR) 0.5 % ophthalmic solution Use 1 Drop in the left eye four times daily. prednisoLONE acetate (PRED FORTE, ECONOPRED PLUS) 1 % ophthalmic suspension Use 1 Drop in the left eye four times daily. 2. Combined forms of age-related cataract of right eye - ICD9: 366.19, ICD10: H25.811 Cataract Presurgical Documentation Cataract: Right eye (OD) Current Visual Acuity Right Eye Distance CC 20/50 Left Eye Distance SC 20/60 Glare Testing: Visual Function: Haider Carroll Smithacelso states that the decline in vision from the cataract impedes her abilities as listed in the HPI, as well as other activities of daily living. Haider Parisi has confirmed that she is no longer able to function adequately on a day-to-day basis because of her current visual condition. Further, it is my medical opinion that the cataract is the primary cause, or at least a significantly contributory cause of her visual dysfunction. With uncomplicated cataract surgery and lens implantation, it is my expectation that her visual function and quality of life will improve, significantly. The risks, benefits, alternatives, personnel and complications of cataract surgery with lens implantation were discussed with Haider Parisi in detail. she appeared to understand and asked that I proceed with plans for surgery. Use FML drops- three times a day right eye Continue: .Systane Complete Artificial Tears - Use 1 Drop into both eyes three times a day. Scheduled Cataract Surgery with Intraocular lens of right eye on 07-25-2022 at [facility]. 3. 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 I have confirmed and edited as necessary the relevant ophthalmic history, review of systems, surgical history, and ophthalmological examination findings as obtained by the ophthalmic technical staff. I have seen and examined Haider Parisi. I have discussed the examination findings, diagnosis, and treatment options with Haider Parisi and/or her family. I have also reviewed and agree with the assessment and plan as stated above and agree with all its relevant components. I gave the patient the opportunity to ask questions about the findings, diagnosis, and treatment options. Ashvin Azul MD documented in this encounter [facility] 06-21-2022 Instructions Ashvin Azul MD - 06/21/2022 10:45 AM EDT Use FML drops- three times a day right eye Continue: .Systane Complete Artificial Tears - Use 1 Drop into both eyes three times a day. Use eye medications as directed: Current Ophthalmic Meds keTORolac (ACULAR) 0.5 % ophthalmic solution Use 1 Drop in the left eye four times daily. prednisoLONE acetate (PRED FORTE, ECONOPRED PLUS) 1 % ophthalmic suspension Use 1 Drop in the left eye four times daily. Scheduled Cataract Surgery with Intraocular lens of right eye on 07-25-2022 at [facility]. If you have any questions please contact our office at [phone]. After office hours or on the weekend, please call Dr. Azul on his cell phone at [phone]. documented in this encounter [facility] 06-20-2022 Note HNO ID: [id number] Author: Linda White RN Service: Nursing Author Type: Registered Nurse Type: Nursing Progress Note Filed: 06/20/2022 7:04 AM Note Text: Other: Patient education completed. Patient ready for procedure. [facility] 06-10-2022 History and physical note HISTORY AND PHYSICAL EXAMINATION SERVICE DATE: 06/10/2022 SERVICE TIME: PRIMARY CARE PHYSICIAN: Kusum Otoole DO REASON FOR VISIT: Haider Parisi is a 66 year old female who is being seen for combined age related cataract left eye The patient has the following: ACTIVE PROBLEM LIST Type 2 Diabetes Mellitus (Hcc) Spondylosis of Lumbosacral Spine Without Myelopathy Recurrent Falls Lumbar Radiculopathy Injury of Kidney Hypercalcemia Contusion of Chest Wall Severe Nonproliferative Diabetic Retinopathy of Both Eyes With Macular Edema Associated With Type 2 Diabetes Mellitus (Hcc) Hypertension Hyperlipidemia Combined Forms of Age-Related Cataract of Left Eye Combined Forms of Age-Related Cataract of Right Eye Essential Hypertension Ptosis of Both Eyelids SUBJECTIVE CHIEF COMPLAINT: Combined age related cataract left eye HPI: Blurry vision both eyes, difficulty reading both eyes, difficulty with glare both eyes PAST MEDICAL HISTORY Diagnosis Date Basal cell carcinoma (BCC) of eyelid left lower lid Essential hypertension Mixed hyperlipidemia Hyperlipidemia Polyp of vagina ENDOCERVICAL Type II or unspecified type diabetes mellitus without mention of complication, uncontrolled PAST SURGICAL HISTORY Procedure Laterality Date PAST SURGICAL HISTORY OF Left removal of basal cell carcinoma lower lid FAMILY HISTORY Problem Relation Age of Onset Cancer Mother colon Diabetes Father Heart Father No Ocular Disease No Family History SOCIAL HISTORY: Social History Tobacco Use Smoking status: Never Smokeless tobacco: Never Substance Use Topics Alcohol use: Yes Comment: occasionally Drug use: No MEDICATIONS: Prior to Admission medications as of 06/10/22 1109 Medication Sig Last Dose Taking fluorometholone (FML LIQUID FILM) 0.1 % ophthalmic suspension Use 1 Drop in the left eye three times daily. Yes HUMALOG MIX 50-50 KWIKPEN 100 unit/mL (50-50) inpn INJECT 40 UNITS SUBCUTANEOUSLY TWICE DAILY Yes LEVEMIR FLEXTOUCH U-100 INSULIN 100 unit/mL (3 mL) injection pen INJECT 50 UNITS SUBCUTANEOUSLY EVERY MORNING Yes ciprofloxacin HCl (CIPRO ORAL) Take by mouth. Yes omeprazole (PRILOSEC) 20 mg capsule Take 20 mg by mouth once daily. Yes amLODIPine (NORVASC) 5 mg tablet Take 5 mg by mouth once daily. Yes ONETOUCH ULTRA2 METER USE TO CHECK BLOOD SUGAR DIRECTED Yes TRULICITY 0.75 mg/0.5 mL pen injector INJECT 1 SYRINGE SUBCUTANEOUSLY EVERY WEEK Yes gabapentin (NEURONTIN) 300 mg capsule TAKE 1 CAPSULE BY MOUTH THREE TIMES DAILY NEEDED AND 1 TO 2 CAPSULES AT BEDTIME NEEDED FOR PAIN Yes losartan (COZAAR) 100 mg tablet Take 100 mg by mouth once daily. Yes JANUVIA 100 mg tablet Take 100 mg by mouth once daily. Yes loratadine 10 mg cap Take 10 mg by mouth once daily. Yes aspirin, enteric coated (ASPIRIN, ENTERIC COATED) 81 mg EC tablet Take 81 mg by mouth once daily. Yes ascorbic acid (RITO-C ORAL) Take 2,000 mg by mouth once daily. Yes GLIMEPIRIDE (AMARYL ORAL) Take 4 mg by mouth twice daily. Yes keTORolac (ACULAR) 0.5 % ophthalmic solution Use 1 Drop in the left eye four times daily. Please bring unopened medication to hospital 06/20/2022 prednisoLONE acetate (PRED FORTE, ECONOPRED PLUS) 1 % ophthalmic suspension Use 1 Drop in the left eye four times daily. Please bring unopened medication to hospital on 06/20/2022 vit C/E/Zn/coppr/lutein/zeaxan (PRESERVISION AREDS-2 ORAL) Take 1 capsule by mouth once daily. cephalexin (KEFLEX ORAL) Take by mouth. Patient not taking: No sig reported metFORMIN (GLUCOPHAGE) 1,000 mg tablet Take 1 tablet by mouth twice daily. Patient not taking: No sig reported ibuprofen (MOTRIN) 200 mg tablet Take 200 mg by mouth. 1-2 daily vit C/vit E acet/lutein/min (OCUVITE LUTEIN ORAL) Take by mouth once daily. Patient not taking: No sig reported SITAGLIPTIN PHOSPHATE (JANUVIA ORAL) Take 100 mg by mouth once daily. valsartan (DIOVAN) 80 mg tablet Take 80 mg by mouth once daily. Patient not taking: No sig reported azithromycin (ZITHROMAX Z-SOFIA) 250 mg tablet Take 2 tablets by mouth day one, then 1 tablet daily until gone. Patient not taking: No sig reported Benzonatate (TESSALON) 200 mg capsule Take 200 mg by mouth three times daily as needed for Cough. Patient not taking: No sig reported GLUCOPHAGE XR 500 MG 24 HR TAB Build to a dose of 3 tabs at dinner as directed Patient not taking: No sig reported ASCRIPTIN 325 MG TAB No medication comments found. CURRENT ALLERGIES: ALLERGIES Allergen Reactions Environmental [Othe* nasal congestion Lisinopril Rash REVIEW OF SYSTEMS: PAIN ASSESSMENT: General: No weight loss, malaise or fevers. Neuro: No Hx of stroke or seizures Respiratory: No history of current cough or dyspnea, or pneumonia in the past 6 weeks. No history of respiratory/pulmonary symptoms or problems Cardiovascular: Positive for: Hypertension GI: No history of GI symptoms or problems. No history of esophageal varices, recent ascites, or ETOH greater than 2 drinks per day. : No history of UTI in past 6 weeks. No history of renal failure. Not currently on or requiring dialysis. No history of symptoms or problems. 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 : Denies Endocrine: Diabetes Mellitus on insulin Hematology: No history of bleeding or clotting disorder. Pt is not taking anti-coagulation or platelet medications. No history of hematological symptoms or problems. Oncology: No history of CA metastasis, chemo within 30 days, or radiotherapy within 90 days. Has not lost 10% of body wt in 6 months. No history of oncological symptoms or problems. Psych: No history of psychiatric symptoms or problems. Musculoskeletal: See HPI Skin: Negative for lesions, rash and itching. PHYSICAL EXAM: VITALS: BP 165/72 Pulse 89 LMP 05/04/2006 General: Alert and oriented Skin: Normal color, no rash, no lesions. HEENT: EOM, pupils equal, round and reactive. Cardiovascular: Normal S1 & S2, no rubs, murmurs or gallops. No JVD. Pulse regular. Lungs: Normal breath sounds, no wheezes or crackles. Abdomen: Soft, non-tender, no rigidity. Extremities: No deformity, no edema or tenderness, no joint swelling or clubbing. Neurological: Normal cognition and motor skills. Pulses: Carotid and radial pulses normal +2. Diagnostic tests reviewed for today's visit: Most recent EKG: normal sinus rhythm, normal axis, normal intervals, reviewed by myself. ASSESSMENT Medication and Non-Pharmacologic VTE Prophylaxis/Anticoagulants VTE Prophylaxis: VTE prophylaxis appropriate Impression: There is no known pertinent medical condition which may affect naida-operative course Clinical Risk Factors for Possible Cardiac Complications: None Patient is scheduled for a low-risk procedure. FUNCTIONAL STATUS: Walk indoors, such as around the house (1.75 METs) Functional Class (NYHA): N/A [facility]: Not obtained PLAN CONSULTS: Patient does not require consults for optimization at this time. The Following Tests/Procedures Have Been Initiated: None Instructions Given to Patient: Patient given verbal and written preop instructions and voices comprehension and compliance. SIGNATURE: Ashvin Azul MD PATIENT NAME: Haider Parisi DATE: June 10, 2022 TIME: 11:22 AM PAGER/CONTACT #: documented in this encounter [facility] 06-10-2022 History of Present illness Narrative ASSESSMENT/PLAN: 1. Combined forms of age-related cataract of left eye - ICD9: 366.19, ICD10: H25.812 (primary diagnosis) PHYSICAL EXAM: Vital Signs: Blood pressure 165/72, pulse 89, last menstrual period 05/04/2006. Respiratory: Normal breath sounds, no wheezing. CARD: Normal heart sounds 1 & 2, normal sinus rhythm. Cataract Presurgical Documentation Cataract: Left eye (OS) Current Visual Acuity Right Eye Distance SC 20/50 Left Eye Distance SC 20/50 Visual Function: Haider Parisi states that the decline in vision from the cataract impedes her abilities as listed in the HPI, as well as other activities of daily living. Haider Parisi has confirmed that she is no longer able to function adequately on a day-to-day basis because of her current visual condition. Further, it is my medical opinion that the cataract is the primary cause, or at least a significantly contributory cause of her visual dysfunction. With uncomplicated cataract surgery and lens implantation, it is my expectation that her visual function and quality of life will improve, significantly. The risks, benefits, alternatives, personnel and complications of cataract surgery with lens implantation were discussed with Haider Parisi in detail. she appeared to understand and asked that I proceed with plans for surgery. Patient wishes to have traditional cataract surgery with basic Intraocular lens - Left eye on 06/20/2022 at [facility]. Patient wishes to have cataract surgery with the option stated above. Patient understands that an intraocular lens implant does not necessarily replace the need for glasses. Patient understands that it is impossible for the surgeon to inform him/her of every possible complication that may occur. The surgeon has answered all of the patient's questions. Patient understands that if he/she has a mature or dense cataract, pseudoexfoliation cataract, or history of use of Flomax, he/she may require the use of Maluyugin Ring and/or Vision Blue during surgery. Patient understands the risks, benefits, and alternatives to surgery. Continue: Current Ophthalmic Meds fluorometholone (FML LIQUID FILM) 0.1 % ophthalmic suspension Use 1 Drop in the left eye three times daily. Continue Systane Complete Artificial Tears - Use 1 Drop into both eyes three times a day. Prognosis poor due to severe diabetic retinopathy 2. Combined forms of age-related cataract of right eye - ICD9: 366.19, ICD10: H25.811 Plan cataract surgery in Right eye once Left eye is stable 3. 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 Continue care with Dr. Manohar Aponte MD, PhD, Retina S/p Avastin both eyes 05/08/2022 4. Ptosis of both eyelids - ICD9: 374.30, ICD10: H02.403 Discussed with patient the need for ptosis repair in the near future 5. Essential hypertension - ICD9: 401.9, ICD10: I10 6. Hyperlipidemia, unspecified hyperlipidemia type - ICD9: 272.4, ICD10: E78.5 Manage care with primary care physician I have confirmed and edited as necessary the relevant ophthalmic history, review of systems, surgical history, and ophthalmological examination findings as obtained by the ophthalmic technical staff. I have seen and examined Haider Parisi. I have discussed the examination findings, diagnosis, and treatment options with Haider Parisi and/or her family. I have also reviewed and agree with the assessment and plan as stated above and agree with all its relevant components. I gave the patient the opportunity to ask questions about the findings, diagnosis, and treatment options. documented in this encounter [facility] documented as of this encounter (statuses as of 06/21/2022) [facility] History of Past illness Narrative* Problem Noted Date Resolved Date Combined forms of age-related cataract of left e ye 05/13/2022 06/20/2022 documented as of this encounter (statuses as of 06/28/2022) [facility] History of Past illness Narrative* Problem Noted Date Resolved Date Combined forms of age-related cataract of left e ye 05/13/2022 06/20/2022 documented as of this encounter (statuses as of 07/03/2022) [facility] History of Past illness Narrative* Problem Noted Date Resolved Date Combined forms of age-related cataract of left e ye 05/13/2022 06/20/2022 Combined forms of age-related cataract of right eye 05/13/2022 07/25/2022 documented as of this encounter (statuses as of 07/26/2022) [facility] History of Past illness Narrative* Problem Noted Date Resolved Date Combined forms of age-related cataract of left e ye 05/13/2022 06/20/2022 Combined forms of age-related cataract of right eye 05/13/2022 07/25/2022 documented as of this encounter (statuses as of 09/25/2022) [facility] History of Past illness Narrative* Problem Noted Date Resolved Date Combined forms of age-related cataract of left e ye 05/13/2022 06/20/2022 Combined forms of age-related cataract of right eye 05/13/2022 07/25/2022 documented as of this encounter (statuses as of 10/03/2022) [facility] History of Past illness Narrative* Problem Noted Date Resolved Date Combined forms of age-related cataract of left e ye 05/13/2022 06/20/2022 Combined forms of age-related cataract of right eye 05/13/2022 07/25/2022 documented as of this encounter (statuses as of 01/08/2023) [facility] History of Past illness Narrative* Problem Noted Date Resolved Date Combined forms of age-related cataract of left e ye 05/13/2022 06/20/2022 Combined forms of age-related cataract of right eye 05/13/2022 07/25/2022 documented as of this encounter (statuses as of 02/04/2023) [facility] History of Past illness Narrative* Problem Noted Date Diagnosed Date Resolved Date Combined forms of age-relate d cataract of left eye 05/13/2022 06/20/2022 Combined forms of age-relate d cataract of right eye 05/13/2022 07/25/2022 documented as of this encounter (statuses as of 05/15/2023) [facility] Instructions* Patient Instructions* Manohar Aponte MD, PhD - 05/08/2022 2:43 PM EDT Post-Injection Patient Information You had an injection into the eye today. Tearing and some redness are common after an eye injection. If the eye feels irritated, try to keepit closed; some patients find that a mild pain medicine such as acetaminophen helps. If tearing or pain persists the next day, please call. The redness may take some days to a week to resolve. If you notice increasing pain, redness or blurred vision, please call the office. Loss of central or peripheral vision should prompt a call to us. Please call if you have any questions or concerns. For Questions or an Appointment, please call: [phone] Visit us online at [email or web address]. [facility] History of Present illness Narrative* Manohar Aponte MD, PhD - 05/08/2022 2:19 PM EDT Referred by Dr. Albarado for diabetic retinopathy 1. Diabetes mellitus with severe nonproliferative diabetic retinopathy both eyes and macular edema both eyes blood pressure/bg control S/p avastin previously with good response 2. Nuclear sclerosis both eyes -visually significant per Dr. Albarado but had to cancel surgery due to hypbaric oxygen treatment 3. ocular hypertension: monitor this Plan: Unplanned extension to 6 mo previously Avastin 6 wks ago, much improved Rec avastin both eyes today Return in 6-8 wks STI Full exam Sharad Ok to proceed with Ce/intraocular lens OU I have confirmed and edited as necessary the relevant ophthalmic history, ROS, and the neuro exam findings as obtained by others. I have seen and examined this patient. I have discussed the case and the management of this patient's care with the Resident/Fellow, if applicable. I also have reviewed and agree with the assessment and plan as stated above and agree withall of its relevant components. Manohar Aponte MD [facility] Instructions* Patient Instructions* Manohar Aponte MD, PhD - 03/27/2022 1:48 PM EDT Post-Injection Patient Information You had an injection into the eye today. Tearing and some redness are common after an eye injection. If the eye feels irritated, try to keepit closed; some patients find that a mild pain medicine such as acetaminophen helps. If tearing or pain persists the next day, please call. The redness may take some days to a week to resolve. If you notice increasing pain, redness or blurred vision, please call the office. Loss of central or peripheral vision should prompt a call to us. Please call if you have any questions or concerns. For Questions or an Appointment, please call: [phone] Visit us online at [email or web address]. [facility] History of Present illness Narrative* Manohar Aponte MD, PhD - 03/27/2022 1:40 PM EDT Referred by Dr. Albarado for diabetic retinopathy 1. Diabetes mellitus with severe nonproliferative diabetic retinopathy both eyes and macular edema both eyes blood pressure/bg control S/p avastin previously with good response 2. Nuclear sclerosis both eyes -visually significant per Dr. Albarado but had to cancel surgery due to hypbaric oxygen treatment 3. ocular hypertension: monitor this Plan: Unplanned extension to 6 mo Rec avastin both eyes today Return in 6-8 wks STI (if better controlled then ok for Cataract extraction/IOL) Full exam Sharad Delay Dr. Azul's visit until after next visit with me I have confirmed and edited as necessary the relevant ophthalmic history, ROS, and the neuro exam findings as obtained by others. I have seen and examined this patient. I have discussed the case and the management of this patient's care with the Resident/Fellow, if applicable. I also have reviewed and agree with the assessment and plan as stated above and agree withall of its relevant components. Manohar Aponte MD [facility] Instructions* Patient Instructions* Ashvin Azul MD - 02/18/2022 3:04 PM EDT Discontinue Refresh artificial tears Begin: Systane Complete Artificial Tears - Use 1 Drop into both eyes three times a day. Please keep your blood sugar under good control to minimize risk of ocular complications from diabetes. If you have any questions please contact our office at [phone]. After office hours or on the weekend, please call Dr. Azul on his cell phone at [phone]. [facility] History of Present illness Narrative* Ashvin Azul MD - 02/18/2022 3:03 PM EDT ASSESSMENT/PLAN: 1. Combined form of age-related cataract, right eye - ICD9: 366.19, ICD10: H25.811 (primary diagnosis) 2. Combined form of age-related cataract, left eye - ICD9: 366.19, ICD10: H25.812 Blood pressure 165/72, pulse 89, last menstrual period 05/04/2006. Physical, EKG and basic metabolic panel 03/14/2022 1:10 PM Cataract Presurgical Documentation Cataract: Both eyes Patient reported symptoms: Associated symptoms Positive for: Blurred Vision, decreased vision, itching, floaters (longstanding), difficulty with driving, difficulty with reading, difficulty with watching television, dryness, halos, glare Negative for: Eye Redness, flashes, tearing, burning Current Visual Acuity: Right Eye Distance SC 20/60 Left Eye Distance SC 20/100 Visual Function: Haider Parisi states that the decline in vision from the cataract impedes the ability to read, watch television,as well as other activities of daily living. Haider Parisi has confirmed that she is no longer able to function adequately on a day-to-day basis because of her current visual condition. Further, it is my medical opinion that the cataract is the primary cause, or at least a significantly contributory cause of her visual dysfunction. With uncomplicated cataract surgery and lens implantation, it is my expectation that her visual function and quality of life will improve, significantly. The risks, benefits, alternatives, personnel and complications of cataract surgery with lens implantation were discussed with Haider Parisi in detail. she appeared to understand and asked thatI proceed with plans for surgery. Begin: Systane Complete 1 drop in both eyes three times daily 3. 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 Aponte , scheduled 03/27/2022 S/p Avastin both eyes 09/26/2021 4. Essential hypertension - ICD9: 401.9, ICD10: I10 5. Hyperlipidemia, unspecified hyperlipidemia type - ICD9: 272.4, ICD10: E78.5 Continue care with primary care physician Ashvin Azul MD I have confirmed and edited as necessary the relevant ophthalmic history, review of systems, surgical history, and ophthalmological examination findings as obtained by the ophthalmic technical staff.I have seen and examined Haider Parisi. I have discussed the examination findings, diagnosis, and treatment options with Haider Parisi and/or her family. I have also reviewed and agree with the assessment and plan as stated above and agree with all its relevant components. I gave the patient the opportunity to ask questions about the findings, diagnosis, and treatment options. documented in this encounterProm[facility] History of Present illness Narrative* Manohar Aponte MD, PhD - 12/26/2021 3:44 PM EDT Referred by Dr. Albarado for diabetic retinopathy 1. Diabetes mellitus with severe nonproliferative diabetic retinopathy both eyes and macular edema both eyes blood pressure/bg control S/p avastin previously 2. Nuclear sclerosis both eyes -visually significant per Dr. Albarado but had to cancel surgery due to hypbaric oxygen treatment Plan: Unplanned extension to 3 mo Rec observation since not having surgery Return in 3 mo I have confirmed and edited as necessary the relevant ophthalmic history, ROS, and the neuro exam findings as obtained by others. I have seen and examined this patient. I have discussed the case and the management of this patient's care with the Resident/Fellow, if applicable. I also have reviewed and agree with the assessment and plan as stated above and agree withall of its relevant components. 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 (HCC)- Primary documented [facility] this encounter [facility]* Diagnosis Combined form of age-related cataract, right eye- Primary Combined form of age-related cataract, left eye Severe 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 2 diabetes mellitus (HCC) Essential hypertension Unspecified essential hypertension Hyperlipidemia, unspecified hyperlipidemia type documented in this encounter [facility]* Diagnosis Severe 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 2 diabetes mellitus (HCC) [facility] Diagnosis Severe 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 2 diabetes mellitus (HCC) [facility] Diagnosis Combined forms of age-related cataract of left eye- Primary Other and combined forms of senile cataract Combined forms of age-related cataract of right eye Other and combined forms of senile cataract Severe 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 2 diabetes mellitus (HCC) Ptosis of both eyelids Unspecified ptosis of eyelid Essential hypertension Unspecified essential hypertension Hyperlipidemia, unspecified hyperlipidemia type Combined forms of age-related cataract of left eye Other and combined forms of senile cataract [facility] Diagnosis Status post cataract extraction and insertion of intraocular lens of left eye- Primary Combined forms of age-related cataract of right eye Other and combined forms of senile cataract Severe 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 2 diabetes mellitus (HCC) [facility] Diagnosis Combined forms of age-related cataract of right eye- Primary Other and combined forms of senile cataract Severe 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 2 diabetes mellitus (HCC) Ptosis of both eyelids Unspecified ptosis of eyelid Status post cataract extraction and insertion of intraocular lens of left eye Essential hypertension Unspecified essential hypertension Hyperlipidemia, unspecified hyperlipidemia type [facility] Diagnosis Severe 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 2 diabetes mellitus (HCC) [facility] Diagnosis Status post cataract extraction and insertion of intraocular lens of right eye- Primary Status post cataract extraction and insertion of intraocular lens of left eye [facility] Diagnosis Severe 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 2 diabetes mellitus (HCC) [facility] Diagnosis Severe 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 2 diabetes mellitus (HCC)- Primary Status post cataract extraction and insertion of intraocular lens of right eye Status post cataract extraction and insertion of intraocular lens of left eye Essential hypertension Unspecified essential hypertension Hyperlipidemia, unspecified hyperlipidemia type [facility] Diagnosis Severe 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 2 diabetes mellitus (HCC) [facility] Diagnosis Severe 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 2 diabetes mellitus (HCC)- Primary Pseudophakia, both eyes Lens replaced by other means Essential hypertension Unspecified essential hypertension Hyperlipidemia, unspecified hyperlipidemia type [facility]* Diagnosis Severe 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 In the event of a Fluress shortage, administer Melia-Fluor 1 drop into both eyes as directed for applanation tonometry Given 02/18/2022 3:03 PM EDT 1 Drop PHENYLephrine 2.5 % 1 Drop (AK-DILATE, KATHLEEN-SYNEPHRINE) 1 Drop, BOTH EYES, DIRECTED, Starting on Thu02/18/22 at 1430, Until Thu02/19/22 at 0229, Administer for dilation PROTECT FROM LIGHT Given 02/18/2022 3:03 PM EDT 1 Drop proparacaine 0.5 % 1 Drop (ALCAINE) 1 Drop, BOTH EYES, DIRECTED, Starting on Thu02/18/22 at 1430, Until Thu02/19/22 at 0229, Administer for pneumo tonometry, tonopen tonometry, or pachymetry. In the event of a proparacaine shortage, administer tetracaine 0.5% ophthalmic drops 1 drop in the left eye as directed for pneumo tonometry, tonopen tonometry, or pachymetry Given 02/18/2022 3:03 PM EDT 1 Drop tropicamide 1 % 1 Drop (MYDRIACYL) 1 Drop, BOTH EYES, DIRECTED, Starting on Thu02/18/22 at 1430, Until Thu02/19/22 at 0229, Administer for dilation Given 02/18/2022 3:03 PM EDT 1 Drop Active Administered Medications - up to 3 most recent administrations Medication Order MAR Action Action Date Dose Rate Site PHENYLephrine 2.5 % 1 Drop (AK-DILATE, KATHLEEN-SYNEPHRINE) 1 Drop, BOTH EYES, DIRECTED, Starting on Thu03/27/22 at 1330, Until Thu03/28/22 at 0129, Administer for dilation PROTECT FROM LIGHT, OPHT CLINIC MED ORDERS Given 03/27/2022 1:21 PM EDT 1 Drop proparacaine 0.5 % 1 Drop (ALCAINE) 1 Drop, BOTH EYES, DIRECTED, Starting on Thu03/27/22 at 1330, Until Thu03/28/22 at 0129, Administer for pneumo tonometry, tonopen tonometry, or pachymetry. In the event of a proparacaine shortage, administer 1 drop of tetracaine 0.5% ophthalmic drops into both eyes as directed for pneumo tonometry, tonopen tonometry, or pachymetry, [facility] MED ORDERS Given 03/27/2022 1:21 PM EDT 1 Drop tropicamide 1 % 1 Drop (MYDRIACYL) 1 Drop, BOTH EYES, DIRECTED, Starting on Thu03/27/22 at 1330, Until Thu03/28/22 at 0129, Administer for dilation, [facility]HT [facility]INIC MED ORDERS Given 03/27/2022 1:21 PM EDT 1 Drop Inactive Administered Medications - up to 3 most recent administrations Medication Order MAR Action Action Date Dose Rate Site bevacizumab intravitreal syringe 2.5 mg/0.1 mL ONE TIME INJECTION, 1 dose, Starting on Thu03/27/22 at 1348, Until Thu03/27/22 at 1348 Given 03/27/2022 1:48 PM EDT Right bevacizumab intravitreal syringe 2.5 mg/0.1 mL ONE TIME INJECTION, 1 dose, Starting on Thu03/27/22 at 1349, Until Thu03/27/22 at 1349 Given 03/27/2022 1:49 PM EDT Left Inactive Administered Medications - up to 3 most recent administrations Medication Order MAR Action Action Date Dose Rate Site bevacizumab intravitreal syringe 2.5 mg/0.1 mL 1.25 mg, ONE TIME INJECTION, 1 dose, Starting on Thu05/08/22 at 1418, Until Thu05/08/22 at 1418 Given 05/08/2022 2:18 PM EDT 1.25 mg Left bevacizumab intravitreal syringe 2.5 mg/0.1 mL 1.25 mg, ONE TIME INJECTION, 1 dose, Starting on Nasreen 05/08/22 at 1418, Until Nasreen 05/08/22 at 1418 Given 05/08/2022 2:18 PM EDT 1.25 mg Right Inactive Administered Medications - up to 3 most recent administrations Medication Order MAR Action Action Date Dose Rate Site proparacaine 0.5 % 1 Drop (ALCAINE) 1 Drop, BOTH EYES, DIRECTED, Starting on 06/10/22 at 1130, Until 06/10/22 at 2329, Administer for pneumo tonometry, tonopen tonometry, or pachymetry. In the event of a proparacaine shortage, administer tetracaine 0.5% ophthalmic drops 1 drop in the left eye as directed for pneumo tonometry, tonopen tonometry, or pachymetry Given 06/10/2022 11:03 AM EDT 1 Drop Active Administered Medications - up to 3 most recent administrations Medication Order MAR Action Action Date Dose Rate Site proparacaine 0.5 % 1 Drop (ALCAINE) 1 Drop, BOTH EYES, DIRECTED, Starting on 06/28/22 at 1130, Until 06/28/22 at 2329, Administer for pneumo tonometry, tonopen tonometry, or pachymetry. In the event of a proparacaine shortage, administer tetracaine 0.5% ophthalmic drops 1 drop in the left eye as directed for pneumo tonometry, tonopen tonometry, or pachymetry Given 06/28/2022 11:23 AM EDT 1 Drop Inactive Administered Medications - up to 3 most recent administrations Medication Order MAR Action Action Date Dose Rate Site bevacizumab intravitreal syringe 2.5 mg/0.1 mL 1.25 mg, ONE TIME INJECTION, 1 dose, Starting on Nasreen 07/03/22 at 1401, Until Nasreen 07/03/22 at 1401 Given 07/03/2022 2:01 PM EDT 1.25 mg Left bevacizumab intravitreal syringe 2.5 mg/0.1 mL 1.25 mg, ONE TIME INJECTION, 1 dose, Starting on Nasreen 07/03/22 at 1400, Until Nasreen 07/03/22 at 1400 Given 07/03/2022 2:00 PM EDT 1.25 mg Right Active Administered Medications - up to 3 most recent administrations Medication Order MAR Action Action Date Dose Rate Site PHENYLephrine 2.5 % 1 Drop (AK-DILATE, KATHLEEN-SYNEPHRINE) 1 Drop, BOTH EYES, DIRECTED, Starting on Thu09/25/22 at 1330, Until Thu09/26/22 at 0129, Administer for dilation PROTECT FROM LIGHT, OPHT CLINIC MED ORDERS Given 09/25/2022 1:30 PM EST 1 Drop proparacaine 0.5 % 1 Drop (ALCAINE) 1 Drop, BOTH EYES, DIRECTED, Starting on Thu09/25/22 at 1330, Until Thu09/26/22 at 0129, Administer for pneumo tonometry, tonopen tonometry, or pachymetry. In the event of a proparacaine shortage, administer 1 drop of tetracaine 0.5% ophthalmic drops into both eyes as directed for pneumo tonometry, tonopen tonometry, or pachymetry, [facility] MED ORDERS Given 09/25/2022 1:30 PM EST 1 Drop tropicamide 1 % 1 Drop (MYDRIACYL) 1 Drop, BOTH EYES, DIRECTED, Starting on Thu09/25/22 at 1330, Until Thu09/26/22 at 0129, Administer for dilation, [facility]HT [facility]INIC MED ORDERS Given 09/25/2022 1:30 PM EST 1 Drop Inactive Administered Medications - up to 3 most recent administrations Medication Order MAR Action Action Date Dose Rate Site bevacizumab intravitreal syringe 2.5 mg/0.1 mL 1.25 mg, ONE TIME INJECTION, 1 dose, Starting on Thu09/25/22 at 1355, Until Thu09/25/22 at 1355 Given 09/25/2022 1:55 PM EST 1.25 mg Right bevacizumab intravitreal syringe 2.5 mg/0.1 mL 1.25 mg, ONE TIME INJECTION, 1 dose, Starting on Thu09/25/22 at 1355, Until Nasreen 09/25/22 at 1355 Given 09/25/2022 1:55 PM EST 1.25 mg Left Active Administered Medications - up to 3 most recent administrations Medication Order MAR Action Action Date Dose Rate Site PHENYLephrine 2.5 % 1 Drop (AK-DILATE, KATHLEEN-SYNEPHRINE) 1 Drop, BOTH EYES, DIRECTED, Starting on Thu10/03/22 at 1500, Until 10/04/22 at 0259, Administer for dilation PROTECT FROM LIGHT Given 10/03/2022 3:00 PM EST 1 Drop proparacaine 0.5 % 1 Drop (ALCAINE) 1 Drop, BOTH EYES, DIRECTED, Starting on Thu10/03/22 at 1500, Until 10/04/22 at 0259, Administer for pneumo tonometry, tonopen tonometry, or pachymetry. In the event of a proparacaine shortage, administer tetracaine 0.5% ophthalmic drops 1 drop in the left eye as directed for pneumo tonometry, tonopen tonometry, or pachymetry Given 10/03/2022 3:00 PM EST 1 Drop tropicamide 1 % 1 Drop (MYDRIACYL) 1 Drop, BOTH EYES, DIRECTED, Starting on Thu10/03/22 at 1500, Until 10/04/22 at 0259, Administer for dilation Given 10/03/2022 3:00 PM EST 1 Drop Inactive Administered Medications - up to 3 most recent administrations Medication Order MAR Action Action Date Dose Rate Site bevacizumab intravitreal syringe 2.5 mg/0.1 mL 1.25 mg, ONE TIME INJECTION, 1 dose, Starting on Thu01/08/23 at 1355, Until Nasreen 01/08/23 at 1355 Given 01/08/2023 1:55 PM EDT 1.25 mg Right bevacizumab intravitreal syringe 2.5 mg/0.1 mL 1.25 mg, ONE TIME INJECTION, 1 dose, Starting on Thu01/08/23 at 1356, Until Nasreen 01/08/23 at 1356 Given 01/08/2023 1:56 PM EDT 1.25 mg Left Active Administered Medications - up to 3 most recent administrations Medication Order MAR Action Action Date Dose Rate Site fluorescein-benoxinate 0.25-0.4 % 1 Drop (FLURESS) 1 Drop, BOTH EYES, DIRECTED, Starting on Thu02/04/23 at 1100, Until Thu02/04/23 at 2259, Administer for applanation tonometry. In the event of a Fluress shortage, administer [place]-Fluor 1 drop into both eyes as directed for applanation tonometry Given 02/04/2023 11:00 AM EDT 1 Drop PHENYLephrine 2.5 % 1 Drop (AK-DILATE, KATHLEEN-SYNEPHRINE) 1 Drop, BOTH EYES, DIRECTED, Starting on Thu02/04/23 at 1100, Until Thu02/04/23 at 2259, Administer for dilation PROTECT FROM LIGHT Given 02/04/2023 11:00 AM EDT 1 Drop proparacaine 0.5 % 1 Drop (ALCAINE) 1 Drop, BOTH EYES, DIRECTED, Starting on Thu02/04/23 at 1100, Until Thu02/04/23 at 2259, Administer for pneumo tonometry, tonopen tonometry, or pachymetry. In the event of a proparacaine shortage, administer tetracaine 0.5% ophthalmic drops 1 drop in the left eye as directed for pneumo tonometry, tonopen tonometry, or pachymetry Given 02/04/2023 11:00 AM EDT 1 Drop tropicamide 1 % 1 Drop (MYDRIACYL) 1 Drop, BOTH EYES, DIRECTED, Starting on Thu02/04/23 at 1100, Until Thu02/04/23 at 2259, Administer for dilation Given 02/04/2023 11:00 AM EDT 1 Drop Inactive Administered Medications - up to 3 most recent administrations Medication Order MAR Action Action Date Dose Rate Site bevacizumab intravitreal syringe 2.5 mg/0.1 mL 1.25 mg, ONE TIME INJECTION, 1 dose, Starting on Thu05/14/23 at 1609, Until Thu05/14/23 at 1609 Given 05/14/2023 4:09 PM EDT 1.25 mg Right bevacizumab intravitreal syringe 2.5 mg/0.1 mL 1.25 mg, ONE TIME INJECTION, 1 dose, Starting on Thu05/14/23 at 1609, Until Nasreen 05/14/23 at 1609 Given 05/14/2023 4:09 PM EDT 1.25 mg Left fluorescein-benoxinate 0.25-0.4 % 1 Drop (FLURESS) 1 Drop, BOTH EYES, DIRECTED, Starting on Thu05/14/23 at 1430, Until Thu05/15/23 at 0229, Administer for applanation tonometry. In the event of a Fluress shortage, administer Melia-Fluor 1 drop into both eyes as directed for applanation tonometry, OPHT [facility]IC MED ORDERS Given 05/14/2023 2:30 PM EDT 1 Drop proparacaine 0.5 % 1 Drop (ALCAINE) 1 Drop, BOTH EYES, DIRECTED, Starting on Nasreen 05/14/23 at 1430, Until 05/15/23 at 0229, Administer for pneumo tonometry, tonopen tonometry, or pachymetry. In the event of a proparacaine shortage, administer tetracaine 0.5% ophthalmic drops 1 drop in both eyes as directed for pneumo tonometry, tonopen tonometry, or pachymetry, OPHT [facility]INIC MED ORDERS Given 05/14/2023 2:30 PM EDT 1 Drop Summary Purpose Family History No Family History Records FoundNo Family History Records FoundNo Family History Records FoundNo Family History Records FoundNo Family History Records Found Advance Directives No Advanced Directives Records FoundNo Advanced Directives Records FoundNo Advanced Directives Records FoundNo Advanced Directives Records FoundNo Advanced Directives Records Found 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, 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 , 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 REFERRED BY Additional Source Comments Source Comments (unrecognize d section and content) In the event this informatio n is protected by the Federal Confidentiality of Alcohol and Drug Abuse Patient Records regulations: The Federal rules restrict any use of the information to criminally investigate or prosecute any alcohol or drug abuse patient.[facility] the event this information is protected by the Federal Confidentiality of Alcohol and Drug Abuse Patient Records regulations: The Federal rules restrict any use of the information to criminally investigate or prosecute any alcohol or drug abuse patient.[facility] the event this information is protected by the Federal Confidentiality of Alcohol and Drug Abuse Patient Records regulations: The Federal rules restrict any use of the information to criminally investigate or prosecute any alcohol or drug abuse patient.[facility] the event this information is protected by the Federal Confidentiality of Alcohol and Drug Abuse Patient Records regulations: The Federal rules restrict any use of the information to criminally investigate or prosecute any alcohol or drug abuse patient.[facility] the event this information is protected by the Federal Confidentiality of Alcohol and Drug Abuse Patient Records regulations: The Federal rules restrict any use of the information to criminally investigate or prosecute any alcohol or drug abuse patient.[facility] the event this information is protected by the Federal Confidentiality of Alcohol and Drug Abuse Patient Records regulations: The Federal rules restrict any use of the information to criminally investigate or prosecute any alcohol or drug abuse patient.[facility] the event this information is protected by the Federal Confidentiality of Alcohol and Drug Abuse Patient Records regulations: The Federal rules restrict any use of the information to criminally investigate or prosecute any alcohol or drug abuse patient.[facility] the event this information is protected by the Federal Confidentiality of Alcohol and Drug Abuse Patient Records regulations: The Federal rules restrict any use of the information to criminally investigate or prosecute any alcohol or drug abuse patient.[facility] the event this information is protected by the Federal Confidentiality of Alcohol and Drug Abuse Patient Records regulations: The Federal rules restrict any use of the information to criminally investigate or prosecute any alcohol or drug abuse patient.[facility] the event this information is protected by the Federal Confidentiality of Alcohol and Drug Abuse Patient Records regulations: The Federal rules restrict any use of the information to criminally investigate or prosecute any alcohol or drug abuse patient.[facility] the event this information is protected by the Federal Confidentiality of Alcohol and Drug Abuse Patient Records regulations: The Federal rules restrict any use of the information to criminally investigate or prosecute any alcohol or drug abuse patient.[facility] the event this information is protected by the Federal Confidentiality of Alcohol and Drug Abuse Patient Records regulations: The Federal rules restrict any use of the information to criminally investigate or prosecute any alcohol or drug abuse patient.[facility] the event this information is protected by the Federal Confidentiality of Alcohol and Drug Abuse Patient Records regulations: The Federal rules restrict any use of the information to criminally investigate or prosecute any alcohol or drug abuse patient.[facility] the event this information is protected by the Federal Confidentiality of Alcohol and Drug Abuse Patient Records regulations: The Federal rules restrict any use of the information to criminally investigate or prosecute any alcohol or drug abuse patient.[facility] Reason for Visit (unrecogniz ed section and content) Specialty Diagnoses / Procedures Referred By Brady augustine Referred To Contact Ophthalmology / OPHTHALMOLOGY Diagnoses Type 2 diabetes mellitus with severe nonproliferative diabetic retinopathy with macular edema, bilateral *dfe oct both eyes ? avastin Procedures [place] BEVACIZUMAB INJECTION EST ADULT Manohar Aponte MD, PhD [address] [place] [address] Manohar Aponte MD, PhD [address] [id number] Referral ID Status Reason Start Date Expiration Date V isits Requested Visits Authorized [id number] Authorized 09/25/2022 09/25/2023 99 99 Reason Comments Severe Nonproliferative Diabetic Retinop athy Both eyes Reason Comments Diabetes Last HgbA1c was 9.5 Severe Nonproliferative Diabetic Retinop athy Bilateral Specialty Diagnoses / Procedures Referred By Brady augustine Referred To Contact Ophthalmology / OPHTHALMOLOGY Diagnoses *STI avastin both eyes/OCT Procedures [place] BEVACIZUMAB INJECTION INJECTION Manohar Aponte MD, PhD [address] [id number] Manohar Aponte MD, PhD [address] [id number] Referral ID Status Reason Start Date Expiration Date V isits Requested Visits Authorized [id number] Authorized 09/26/2021 09/06/2022 99 99 Reason Comments Insulin Dependent Diabetes Mellitus Chica ent states blood sugar was 204 this morning. HbA1c: 9-something per patient Reason Comments Blurred Vision Both Eyes Difficulty Reading Both Eyes Glare Bilateral Halos Both Eyes Reason Comments Diabetes Last HgbA1c was 9.5 Severe Nonproliferative Diabetic Retinop athy Bilateral Reason Comments Cataract Follow Up Diabetes Reason Comments Post-op Cataract OS Blurred Vision Right Eye Glare Right eye Reason Comments Blurred Vision Right Eye Difficulty Reading Right Eye Glare Right eye Halos Right Eye Reason Comments Diabetes Last blood sugar antonette dickerson was 285 this morning Severe Nonproliferative Diabetic Retinop athy Bilateral Cystoid Macular Edema Follow Up Bilatera l Specialty Diagnoses / Procedures Referred By Brady augustine Referred To Contact Ophthalmology / OPHTHALMOLOGY Diagnoses *STI avastin both eyes/OCT Procedures TN BEVACIZUMAB INJECTION INJECTION Manohar Aponte MD, PhD [address] [place] [address] Manohar Aponte MD, PhD [address] [place] [address] Reason Comments Post-op Cataract OD S/P Traditional princess ract surgery with IOL right eye done on 07/25/22 Reason Comments Diabetes mellitus with severe nonprolife rative diabetic re Reason Comments Post-op Cataract OD 07/25/2022 Post-op Cataract OS 06/20/2022 Diabetes Reason Comments Severe NPDR/IDDM Patient states her b lood sugar was around 320 this morning Care Teams (unrecognized sec tion and content) Stocking Inspector Relationship Specialty Start Date End Date Kusum Otoole DO [address] [place] [address] PCP - General Family Practice 03/04/21 Stocking Inspector Relationship Specialty Start Date End Date Kusum Otoole DO [address] [place] [address] PCP - General Family Practice 03/04/21 Stocking Inspector Relationship Specialty Start Date End Date Kusum Otoole DO [address] [place] [address] PCP - General Family Practice 03/04/21 Stocking Inspector Relationship Specialty Start Date End Date Kusum Otoole DO [address] [place] [address] PCP - General Family Medicine 03/04/21 Stocking Inspector Relationship Specialty Start Date End Date Kusum Otoole DO [address] [place] [address] PCP - General Family Medicine 03/04/21 Stocking Inspector Relationship Specialty Start Date End Date Kusum Otoole DO [address] [place] [address] PCP - General Family Medicine 03/04/21 Stocking Inspector Relationship Specialty Start Date End Date Kusum Otoole DO [address] [place] [address] PCP - General Family Medicine 03/04/21 Stocking Inspector Relationship Specialty Start Date End Date Kusum Otoole DO [address] [place] [address] PCP - General Family Medicine 03/04/21 Stocking Inspector Relationship Specialty Start Date End Date Kusum Otoole DO [address] [place] [address] PCP - General Family Medicine 03/04/21 Stocking Inspector Relationship Specialty Start Date End Date Kusum Otoole DO [address] [place] [address] PCP - General Family Medicine 03/04/21 Stocking Inspector Relationship Specialty Start Date End Date Kusum Otoole DO [address] [place] [address] PCP - General Family Medicine 03/04/21 Stocking Inspector Relationship Specialty Start Date End Date Kusum Otoole DO [address] [place], [place] [id number] PCP - General Family Medicine 03/04/21 INFORMATION SOURCE (unrecogn ized section and content) DATE CREATED AUTHOR AUTHOR'S ORGANIZ ATION 02/26/2023 [facility] DATE CREATED AUTHOR AUTHOR'S ORGANIZ ATION 02/26/2023 [employer] DATE CREATED AUTHOR AUTHOR'S ORGANIZ ATION 08/09/2023 [facility] DATE CREATED AUTHOR AUTHOR'S ORGANIZ ATION 08/30/2023 [facility] FOR RECORDS PERTAINING TO PATIENTS WHO ARE OR HAVE BEEN ENROLLED IN A CHEMICAL DEPENDENCY/SUBSTANCEABUSE PROGRAM, SOME INFORMATION MAY BE OMITTED. This clinical summary was aggregated from multiple sources. Caution should be exercised in using it in the provision of clinical care. This summary normalizes information from multiple sources, and as a consequence, information in this document may materially change the coding, format and clinical context of patient data. In addition, data may be omitted in some cases. CLINICAL DECISIONS SHOULD BE BASED ON THE PRIMARY CLINICAL RECORDS. [facility] [employer] provides no warranty or guarantee of the accuracy or completeness of information in this document.
== END | disposition home or self-care (01) ==
PROVIDERS: PCP Family Medicine; Visit Provider Podiatrist Foot & Ankle Surgery
DX: L97.519 Non-pressure chronic ulcer of other part of right foot with unspecified severity (principal)
CPT/HCPCS: 87070; 87075; 87077; 87186; 87205

== ENCOUNTER → 2023-09-22 | Outpatient (CLI) | payer MEDICARE, SELFPAY ==
--- NOTE | 2023-09-22 13:04 | ECHOCS_ITS ---
Reason For Study: Edema, Cardiomyopathy Procedure This was a 2D Doppler, Color Flow transthoracic echocardiogram. The study was technically difficult. Exam performed in department. Left Ventricle Normal LV size. The estimated ejection fraction is 60 %. Mild segmental systolic dysfunction (see wall motion). Stage 1 diastolic dysfunction. [place] : Akinetic. There are regional wall motion abnormalities as specified. Right Ventricle Normal RV size. Normal systolic function. Atria Normal left atrium. Normal right atrium. Mitral Valve There is mild mitral annular calcification. Tricuspid Valve Normal tricuspid valve. Aortic Valve Trisinus/trileaflet aortic valve. Pulmonic Valve Normal pulmonic valve. Great Vessels Normal aortic root. The pulmonary artery is normal size. Inferior vena cava collapse with respiration. Pericardium/Pleural No pericardial effusion. Medication 22 gauge I.V. with prn adaptor inserted into right arm. Diluted definity 2ml given slow IV push to enhance endocardial definition. MMode/2D Measurements & Calculations LVIDd: 3.5 cm IVSd: 1.2 cm Ao root diam: 3.0 cm LVIDs: 1.9 cm LVPWd: 1.2 cm RVDd: 3.0 cm FS: 45.9 % LAV(MOD-bp): 38.3 ml LVAd ap4: 24.5 cm2 LVAd ap2: 21.8 cm2 LAV(MOD-bp) Indexed: 21.0 ml/m2 LVLd ap4: 7.6 cm LVLd ap2: 8.0 cm LAV(MOD-sp2): 35.4 ml EDV(MOD-sp4): 63.3 ml EDV(MOD-sp2): 49.0 ml LAV(MOD-sp4): 41.6 ml EDV(sp4-el): 67.2 ml EDV(sp2-el): 50.5 ml LVAs ap4: 14.4 cm2 LVAs ap2: 11.5 cm2 LVLs ap4: 6.6 cm LVLs ap2: 6.8 cm ESV(MOD-sp4): 25.4 ml ESV(MOD-sp2): 15.2 ml ESV(sp4-el): 26.7 ml ESV(sp2-el): 16.5 ml EF(MOD-sp4): 59.9 % EF(MOD-sp2): 68.9 % EF(sp4-el): 60.3 % SV(MOD-sp4): 38.0 ml SV(MOD-sp2): 33.8 ml SV(sp4-el): 40.5 ml LA A4 area: 16.4 cm2 LA dimension(2D): 3.0 cm RA A4 area: 9.5 cm2 Doppler Measurements & Calculations MV E max luis: 63.2 cm/sec Lat Peak E' Luis: 4.7 cm/sec Med Peak E' Luis: 4.7 cm/sec MV A max luis: 120.3 cm/sec E/E' lat: 13.5 E/E' med: 13.5 MV E/A: 0.53 Ao V2 max: 145.3 cm/sec LV V1 max: 106.9 cm/sec PA V2 max: 84.7 cm/sec Ao max P.4 mmHg LV V1 max P.6 mmHg ECHO/Echo Complete W/ Contrast Interpretation Summary Normal LV size. The estimated ejection fraction is 60 %. Mild segmental systolic dysfunction (see wall motion). Stage 1 diastolic dysfunction. Contrast injection was performed. Ordering Physician: Bianka Henry Referring Physician: Hever Otoole Performed By: Sandi Clifton RDCS
== END | disposition home or self-care (01) ==
LOC: CVS 13:03
PROVIDERS: PCP Family Medicine; Referring Provider Physician Assistant Medical; Visit Provider Physician Assistant Medical
DX: R60.0 Localized edema (principal); I42.9 Cardiomyopathy, unspecified
CPT/HCPCS: 93306; Q9957; A4216; C8929

== ENCOUNTER 2023-11-30 09:31 | Emergency (ER) | payer MEDICARE, SELFPAY ==
[2023-11-30] VITALS (7 sets, daily range): BP systolic 130–168; BP diastolic 64–84; PULSE 66–78; RESP 14–18; TEMP 36.1–36.4; O2SAT 97–100; BMI 39.1
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
--- NOTE | 2023-11-30 09:46 | CT_ITS ---
STUDY: CT BRAIN WITHOUT CONTRAST REASON FOR EXAM: Female, 68 years old. altered mental status. Stage IV coronary artery disease. RADIATION DOSAGE (If Supplied By Facility): CTDIvol = ( 44.99 ) mGy, DLP = ( 762.36 ) mGycm TECHNIQUE: Transaxial CT imaging of the brain was performed without administration of intravenous contrast material. Individualized dose optimization techniques were used for this CT. COMPARISON: Comparison is made with prior study April 08, 2018. FINDINGS: Normal soft tissue structures. Normal calvarium. Normal size ventricles and extra-axial spaces for the patient''s age. Normal white matter tracts of the cerebral hemispheres. Normal basal ganglia and thalami. Normal brainstem. Normal cerebellum. There is no intracranial hemorrhage. There are no findings of an acute ischemic infarction. Normal visualized paranasal sinuses. CT/Brain/Head without Contrast IMPRESSION: Normal unenhanced CT scan of the brain. Electronically Signed: Ibrahima Gutierrez MD at 11:12 EDT ,
--- NOTE | 2023-11-30 09:48 | EKG12_ITS ---
Test Reason : SYNCOPE Blood Pressure : / mmHG Vent. Rate : 145 BPM Atrial Rate : 312 BPM P-R Int : 130 ms QRS Dur : 144 ms QT Int : 370 ms P-R-T Axes : 025 256 192 degrees QTc Int : 574 ms Critical Test Result: High HR , Poor tracing artifact Probably NSR HR 65 Cannot rule out Anterior infarct , age undetermined Abnormal Confirmed by Alvaro Jesus ([id number]), newspaper editor managing KATHLEEN WHITNEY ([id number]) on 12/01/2023 1:43:49 PM Referred By: Confirmed By:Alvaro Jesus
[2023-11-30 10:19] LABS: Absolute Lymphocyte Count 1.58 X10^3/uL (0.83-4.51); Absolute Neutrophil Count 8.6 X10^3/uL (2.0-7.7); Basophil# 0.04 X10^3/uL; Basophil% 0.4 % (0-1); Eosinophil# 0.04 X10^3/uL; Eosinophils% 0.4 % (0-5); Hematocrit 41.1 % (37-47); Hemoglobin 13.2 g/dL (12.0-15.0); Lymphocyte # 1.58 X10^3/ul (0.83-4.51); Lymphocyte % 14.9 % (19-41); Mean Corp Hgb Conc 32.1 g/dL (32-36); Mean Corpuscular Hgb 28.8 pg (27.0-32.0); Mean Corpuscular Volume 89.7 fL (81-99); Mean Platelet Vol. 10.8 fl (6.2-12.0); Monocyte# 0.26 X10^3/uL; Monocyte% 2.5 % (0-10); NRBC Flagged by Analyzer 0 % (0-5); Neutrophil # 8.62 X10^3/uL (2.7-7.7); Neutrophil % 81.3 % (47-70); Platelet Count 349 K/mm3 (150-450); RBC Distribution Width CV 12.9 % (11.6-14.6); Red Blood Count 4.58 M/mm3 (4.2-5.4); White Blood Count 10.6 K/mm3 (4.4-11.0)
[2023-11-30] MEDS: Dextrose 50%-Water 25 GM/50 ML DISP.SYRIN IV (10:25)
[2023-11-30] MEDS: 0.9% Normal Saline (1000mL) 1,000 ML 1000 ML IV (10:25)
[2023-11-30 10:28] LABS: International Normalized Ratio 0.9; Prothrombin Time (Protime)PT. 11.6 SECONDS (11.7-14.9)
[2023-11-30 10:30] LABS: Partial Thromboplast Time 21.5 Seconds (24.1-36.2)
--- NOTE | 2023-11-30 10:55 | RAD_ITS ---
STUDY: X-RAY CHEST REASON FOR EXAM: Female, 68 years old. Hypertension TECHNIQUE: Single AP portable view of the chest. COMPARISON: Comparison is made with prior study dated December 22, 2022. FINDINGS: EKG electrodes are seen. The lungs are clear and expanded. There is no demonstrated pleural abnormality. Normal size heart. Normal mediastinum and juan. Normal visualized pulmonary arteries. There is atherosclerotic tortuosity of the aortic arch and descending thoracic aorta. Normal visualized thoracic spine. Normal visualized ribs, clavicles, and shoulders. There is no demonstrated abnormality of the visualized soft tissue structures of the upper abdomen. RAD/Chest 1 View (Portable) IMPRESSION: No acute abnormality is seen. Electronically Signed: Ibrahima Gutierrez MD at 11:12 EDT ,
[2023-11-30 10:57] LABS: AST(SGOT) 32 U/L (15-37); Alanine Aminotransfer ALT/SGPT 34 U/L (13-56); Albumin, Serum 3.6 g/dL (3.2-5.0); Alkaline Phosphatase 123 U/L (45-117); Anion Gap 9 (5-15); BUN 65 mg/dL (7-18); BUN/Creat Ratio 27.3 RATIO (10-20); Bilirubin, Direct 0.11 mg/dL (0.00-0.30); CPK Total, Creatine Kinase 88 U/L (26-192); Calcium,Total 9.7 mg/dL (8.5-10.1); Chloride 106 mmol/L (98-107); Creatinine, Serum 2.38 mg/dL (0.55-1.02); EST Glomerular Filtration Rate 22 mL/min (>60); Est Glom Filt Rate - Afr Amer 26 mL/min (>60); Estimated Creatinine Clearance 23.66 ml/min; Globulin 4.5 g/dL (2.2-4.2); Glucose 198 mg/dL (74-106); Potassium 4.9 mmol/L (3.5-5.1); Protein, Total 8.1 g/dL (6.4-8.2); Sodium Level 138 mmol/L (136-145); Troponin-I HS 17 pg/mL (3.0-54.0)
[2023-11-30 10:58] LABS: Lactic Acid 2.7 mmol/L (0.4-1.9)
[2023-11-30 11:54] LABS: Bedside Glucose 368 mg/dL (74-106)
[2023-11-30 12:06] LABS: Bacteria 0 SEEN /hpf (None Seen); Mucous, Urine 0 SEEN /hpf (<or=2+)
[2023-11-30 12:10] LABS: Color, Urine Yellow (Yellow); Glucose, Dipstick 250 mg/dl (Normal); Ketone-Dipstick Negative (Negative); Leukocyte Esterase-Dipstick 25 /ul (Negative); Nitrite-Dipstick Negative (Negative); Occult Blood-Urine 10 /ul (Negative); Protein-Dipstick 100 mg/dl (Negative); Urine Bilirubin Dipstick Negative (Negative); Urine Clarity Clear (Clear); Urine Urobilinogen Normal (Normal)
[2023-11-30 12:20] LABS: Red Blood Cells-Urine 0-5 SEEN /hpf (0-5); Squamous Epithelial Cells - UA 0-5 SEEN /hpf (5-10); White Blood Cells 0-5 SEEN /hpf (0-5)
[2023-11-30 12:28] LABS: Bedside Glucose 333 mg/dL (74-106)
[2023-11-30 14:11] LABS: Reflex Lactate? Y
[2023-11-30 14:17] LABS: Bedside Glucose 361 mg/dL (74-106)
--- NOTE | 2023-11-30 14:30 | ED.RN ---
dietary, and insulin education offered. pt expresses it was once and it doesn't happen all the time and seems disinterested with alternatives and education. sister at beside also hearing education. both verbalized understanding of what is being said.
== END 2023-11-30 14:42 | disposition home or self-care (01) ==
PROVIDERS: Emergency Provider Emergency Medicine; PCP Family Medicine; Visit Provider Emergency Medicine
DX: E11.649 Type 2 diabetes mellitus with hypoglycemia without coma (principal); N18.4 Chronic kidney disease, stage 4 (severe); I13.0 Hypertensive heart and chronic kidney disease with heart failure and stage 1 through stage 4 chronic kidney disease, or unspecified chronic kidney disease; Z79.4 Long term (current) use of insulin; E11.22 Type 2 diabetes mellitus with diabetic chronic kidney disease; Z79.82 Long term (current) use of aspirin; Z79.899 Other long term (current) drug therapy; Z79.84 Long term (current) use of oral hypoglycemic drugs; K21.9 Gastro-esophageal reflux disease without esophagitis
CPT/HCPCS: 70450; 71045; 80048; 80076; 81001; 82550; 82962; 83605; 84484; 85025; 85610; 85730; 93005; 96360; 96361; 99284; J7030; A4216

== ENCOUNTER → 2024-02-24 | Outpatient (CLI) | payer MEDICARE, SELFPAY ==
[2024-02-24 14:27] LABS: Anion Gap 9 (5-15); BUN 66 mg/dL (7-18); BUN/Creat Ratio 28.3 RATIO (10-20); Calcium,Total 9.5 mg/dL (8.5-10.1); Chloride 104 mmol/L (98-107); Creatinine, Serum 2.33 mg/dL (0.55-1.02); EST Glomerular Filtration Rate 22 mL/min (>60); Est Glom Filt Rate - Afr Amer 27 mL/min (>60); Glucose 526 mg/dL (74-106); Potassium 4.8 mmol/L (3.5-5.1); Sodium Level 135 mmol/L (136-145)
== END | disposition home or self-care (01) ==
LOC: LAB 12:40
PROVIDERS: PCP Family Medicine
DX: N18.4 Chronic kidney disease, stage 4 (severe) (principal)
CPT/HCPCS: 36415; 80048

== ENCOUNTER 2024-08-08 10:07 | Inpatient (IN) | payer MEDICARE, SELFPAY ==
[2024-08-08] VITALS (30 sets, daily range): BP systolic 90–174; BP diastolic 41–89; PULSE 71–102; RESP 12–21; TEMP 35.4–37.3; O2SAT 90–100; BMI 33.8; BMI 32.6
[2024-08-08] MEDS: Rocuronium Bromide 50 MG/5 ML Vial IV (10:16)
[2024-08-08] MEDS: Etomidate 20 MG/10 ML Vial IV (10:16)
--- NOTE | 2024-08-08 10:20 | EKG12_ITS ---
Test Reason : Blood Pressure : */* mmHG Vent. Rate : 90 BPM Atrial Rate : 90 BPM P-R Int : 140 ms QRS Dur : 94 ms QT Int : 386 ms P-R-T Axes : 62 39 11 degrees QTcB Int : 472 ms Normal sinus rhythm Cannot rule out Inferior infarct , age undetermined Cannot rule out Anteroseptal infarct , age undetermined Abnormal ECG Confirmed by Alvaro Jesus ([id number]), tape editor KATHLEEN WHITNEY ([id number]) on 08/10/2024 6:33:20 AM Referred By: Confirmed By: Alvaro Jesus
--- NOTE | 2024-08-08 10:25 | ED.RN ---
intubation time 1020, 20 of etomidate and 50 rocuronium given at 1016
[2024-08-08] MEDS: 0.9% Normal Saline (1000mL) 1,000 ML 1000 ML IV ×2 (10:35→10:45)
--- NOTE | 2024-08-08 10:35 | RAD_ITS ---
STUDY: X-RAY CHEST REASON FOR EXAM: Female, 68 years old. Intubation TECHNIQUE: Single AP portable view of the chest. COMPARISON: Comparison is made with prior study November 30, 2023. FINDINGS: An endotracheal tube is in situ. The tip is at the origin of the right mainstem bronchus. This should be pulled back approximately 2.5 cm. EKG electrodes are seen. An orogastric tube is seen with the tip in the stomach. Atelectasis and/or infiltrate seen at the left lung base as well as in the left upper lobe. The right lung is clear. There is no demonstrated pleural abnormality. Normal size heart. Normal mediastinum and juan. Normal visualized pulmonary arteries. Normal visualized aortic arch and descending thoracic aorta. Normal visualized thoracic spine. Normal visualized ribs, clavicles, and shoulders. There is no demonstrated abnormality of the visualized soft tissue structures of the upper abdomen. RAD/Chest 1 View (Portable) IMPRESSION: The tip of the endotracheal tube is at the origin of the right mainstem bronchus. It should be pulled back approximately 2 cm. The tip of the orogastric tube is in the stomach. Focal infiltrate in the left lower lobe and in the left lower lobe. Electronically Signed: Ibrahima Gutierrez MD at 11:10 EST ,
[2024-08-08 10:36] LABS: Mucous, Urine 0 SEEN /hpf (<or=2+); Red Blood Cells-Urine 0 SEEN /hpf (0-5)
[2024-08-08 10:37] LABS: Absolute Lymphocyte Count 0.67 X10^3/uL (0.83-4.51); Absolute Neutrophil Count 11.2 X10^3/uL (2.0-7.7); Basophil# 0.02 X10^3/uL; Basophil% 0.2 % (0-1); Hematocrit 39.2 % (37-47); Hemoglobin 12.2 g/dL (12.0-15.0); Lymphocyte # 0.67 X10^3/ul (0.83-4.51); Lymphocyte % 5.1 % (19-41); Mean Corp Hgb Conc 31.1 g/dL (32-36); Mean Corpuscular Hgb 28.1 pg (27.0-32.0); Mean Corpuscular Volume 90.3 fL (81-99); Mean Platelet Vol. 10.6 fl (6.2-12.0); Monocyte# 1.15 X10^3/uL; Monocyte% 8.8 % (0-10); NRBC Flagged by Analyzer 0 % (0-5); Neutrophil # 11.21 X10^3/uL (2.7-7.7); Neutrophil % 85.4 % (47-70); Platelet Count 361 K/mm3 (150-450); RBC Distribution Width CV 14.3 % (11.6-14.6); RBC Distribution Width SD 46.8 fl (35.1-43.9); Red Blood Count 4.34 M/mm3 (4.2-5.4); White Blood Count 13.1 K/mm3 (4.4-11.0)
[2024-08-08 10:42] LABS: Color, Urine Yellow (Yellow); Glucose, Dipstick 1000 mg/dl (Normal); Ketone-Dipstick 15 mg/dl (Negative); Leukocyte Esterase-Dipstick Negative /ul (Negative); Nitrite-Dipstick Negative (Negative); Occult Blood-Urine 50 /ul (Negative); Protein-Dipstick 100 mg/dl (Negative); Urine Bilirubin Dipstick Negative (Negative); Urine Clarity Clear (Clear); Urine Urobilinogen Normal (Normal)
[2024-08-08 10:44] LABS: Allen Test Positive; Base Excess -13 mmol/L (-2 to +2); Bicarbonate 15.3 mmol/L (22-26); Blood Gas Specimen Type ART; Mode AC; O2 Delivery Device Adult Vent; PEEP 5; PO2 381 mmHG (75-100); RR 12; SITE L Radial; SO2 100 % (95-99); Total Carbon Dioxide 17 mmol/L; pCO2 40.6 mmHg (35-45); pH 7.18 (7.35-7.45)
[2024-08-08 10:54] LABS: Squamous Epithelial Cells - UA 0-5 SEEN /hpf (5-10); White Blood Cells 0-5 SEEN /hpf (0-5)
[2024-08-08 10:55] LABS: Bacteria 2+ /hpf (None Seen)
--- NOTE | 2024-08-08 10:55 | CT_ITS ---
STUDY: CT BRAIN WITHOUT CONTRAST REASON FOR EXAM: Female, 68 years old. Unresponsive RADIATION DOSAGE (If Supplied By Facility): CTDIvol = ( 47.06 ) mGy, DLP = ( 1851.23 ) mGycm TECHNIQUE: Transaxial CT imaging of the brain was performed without administration of intravenous contrast material. Individualized dose optimization techniques were used for this CT. COMPARISON: Comparison is made with prior study of November 30, 2023. FINDINGS: Normal soft tissue structures. Normal calvarium. There is mild cerebral atrophy with widening of the extra-axial spaces and ventricular dilatation. Normal white matter tracts of the cerebral hemispheres. Normal basal ganglia and thalami. Normal brainstem. Normal cerebellum. There is no intracranial hemorrhage. There are no findings of an acute ischemic infarction. There is partial opacification of the ethmoid sinuses and the maxillary sinuses worse on the left side. CT/Brain/Head without Contrast IMPRESSION: Chronic involutional changes of the brain. Partial opacification of maxillary and ethmoid sinuses. Electronically Signed: Ibrahima Gutierrez MD at 11:58 EST ,
--- NOTE | 2024-08-08 10:55 | CT_ITS ---
STUDY: CT CERVICAL SPINE WITHOUT CONTRAST REASON FOR EXAM: Female, 68 years old. Injury RADIATION DOSAGE (If Supplied By Facility): CTDIvol = ( 20.04 ) mGy, DLP = ( 428.74 ) mGycm TECHNIQUE: High resolution transaxial imaging was performed without contrast material. Sagittal and coronal images were reconstructed. Individualized dose optimization techniques were used for this CT. COMPARISON: None FINDINGS: Normal craniovertebral junction. Normal anterior atlantoaxial articulation. Normal odontoid process. There is straightening of the normal cervical lordosis. Multilevel spondylosis. C2-3: Normal endplates. Normal disc height and morphology. Normal central canal and intervertebral neuroforamina. C3-4: Facet joint osteoarthritis and hypertrophy worse on the right side. No significant stenosis seen. C4-5: Normal endplates. Normal disc height and morphology. Normal central canal and intervertebral neuroforamina. C5-6: Mild degree of disc space narrowing. Spondylosis. Uncovertebral arthrosis. Mild degree of bilateral neural foraminal stenosis. C6-7: Mild degree of disc space narrowing. C7-T1: Normal endplates. Normal disc height and morphology. Normal central canal and intervertebral neuroforamina. Endotracheal tube is seen in situ. An orogastric tube is seen as well. CT/Spine Cervical without Contras IMPRESSION: Multilevel degenerative changes, as described above. Electronically Signed: Ibrahima Gutierrez MD at 11:13 [facility] ,
[2024-08-08 10:58] LABS: Alcohol, Blood (Medical)-Serum < 3.0 mg/dL
[2024-08-08 10:59] LABS: AST(SGOT) 60 U/L (15-37); Alanine Aminotransfer ALT/SGPT 75 U/L (13-56); Alkaline Phosphatase 131 U/L (45-117); Anion Gap 13 (5-15); BUN 137 mg/dL (7-18); BUN/Creat Ratio 37.6 RATIO (10-20); Bilirubin, Direct 0.09 mg/dL (0.00-0.30); Calcium,Total 9.1 mg/dL (8.5-10.1); Chloride 114 mmol/L (98-107); Creatinine, Serum 3.64 mg/dL (0.55-1.02); EST Glomerular Filtration Rate 13 mL/min (>60); Est Glom Filt Rate - Afr Amer 16 mL/min (>60); Estimated Creatinine Clearance 14.28 ml/min; Globulin 4.3 g/dL (2.2-4.2); Glucose 756 mg/dL (74-106); International Normalized Ratio 1.2; Lipase 19 U/L (13-75); Magnesium 3.1 mg/dL (1.6-2.6); Partial Thromboplast Time 22.8 Seconds (24.1-36.2); Protein, Total 7.3 g/dL (6.4-8.2); Prothrombin Time (Protime)PT. 15.3 SECONDS (11.7-14.9); Sodium Level 143 mmol/L (136-145); Troponin-I HS 87 pg/mL (3.0-54.0)
--- NOTE | 2024-08-08 11:04 | NURSING ---
Notified Dr Meyer of critical lab results of Lcactic 2.0 Glucose 756, BUN 137
[2024-08-08 11:11] LABS: Amphetamine Urine VISTA NEGATIVE (<1000 ng/mL); Barbiturate Urine VISTA NEGATIVE (< 200 ng/mL); Benzodiazepine Urine VISTA NEGATIVE (< 200 ng/mL); Cocaine Urine VISTA NEGATIVE (< 300 ng/mL); Ecstacy Urine VISTA NEGATIVE (< 500 ng/mL); Methadone Urine VISTA NEGATIVE (< 300 ng/mL); PCP Urine VISTA NEGATIVE (< 25 ng/mL); THC Urine VISTA NEGATIVE (< 50 ng/mL); Vista UDS pH Range 5
[2024-08-08] MEDS: 0.9% Normal Saline (1000mL) 1,000 ML 250 ML IV (11:26)
[2024-08-08] MEDS: Piperacil/Tazobactam 4.5 GM in 0.9% Normal Saline (100mL MB+) 100 ML IV (11:28)
[2024-08-08 11:46] LABS: CPK Total, Creatine Kinase 1562 U/L (26-192); Triglycerides 260 mg/dL
--- NOTE | 2024-08-08 12:00 | RAD_ITS ---
STUDY: X-RAY CHEST REASON FOR EXAM: Female, 68 years old. Central line placement TECHNIQUE: Single AP portable view of the chest. COMPARISON: Comparison is made with prior study done earlier today. FINDINGS: The tip of the endotracheal tube is at 3.3 cm proximal to the yajaira. An oral gastric tube is seen with tip below the left hemidiaphragm. A right-sided central venous catheter has been placed. The tip is in the right atrium. Stable left lower lobe infiltrate and blunting of the left costophrenic angle. RAD/Chest 1 View (Portable) IMPRESSION: The tip of the endotracheal tube is at 3.3 cm proximal to the yajaira. The tip of the orogastric tube is in the stomach. The tip of the right central venous catheter is in the right atrium. Stable pleural parenchymal changes at the left lung base. Electronically Signed: Ibrahima Gutierrez MD at 13:13 EST ,
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
--- NOTE | 2024-08-08 12:20 | ED.RN ---
Soft restraints applied bilat to wrists due to patient moving and attempting to pull at lines
[2024-08-08] MEDS: Propofol 10MG/Ml 1,000 MG/100 ML Bottle 4.9 MG CONT INF (12:25)
[2024-08-08] MEDS: Insulin Lispro 100 UNIT in 0.9% Normal Saline (100mL Bag) 99 ML 8.1 UNIT CONT INF (12:39)
--- NOTE | 2024-08-08 12:55 | ED.RN ---
report given to MILIEU MANAGER
[2024-08-08 13:12] LABS: Bedside Glucose > 500 mg/dL (74-106)
[2024-08-08 13:12] LABS: Bedside Glucose > 500 mg/dL (74-106)
[2024-08-08 13:46] LABS: Bedside Glucose > 500 mg/dL (74-106)
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
--- NOTE | 2024-08-08 14:18 | ECHOCS_ITS ---
Reason For Study: OTHER Procedure This was a 2D Doppler, Color Flow transthoracic echocardiogram. The study was technically difficult. Contrast injection was performed. Exam performed portable in ICU/CCU. Left Ventricle Normal LV size. The estimated ejection fraction is 60 %. No evidence for diastolic dysfunction. [place] : Akinetic. Right Ventricle Normal RV size. Normal systolic function. Atria The left and right atria are normal. No doppler evidence for ASD. Mitral Valve There is moderate mitral annular calcification. There is no mitral valve stenosis. No mitral valve insufficiency. Tricuspid Valve There is no tricuspid stenosis. Trivial tricuspid valve insufficiency. Pulmonary artery systolic pressure is 30 mmHg. Aortic Valve Trisinus/trileaflet aortic valve. There is no aortic stenosis. No aortic valve insufficiency. Pulmonic Valve There is no pulmonic valvular stenosis. No pulmonic valve insufficiency. Great Vessels Normal aortic root. Pericardium/Pleural No pericardial effusion. Medication Diluted definity 3ml given slow IV push to enhance endocardial definition. MMode/2D Measurements & Calculations LVIDd: 3.5 cm IVSd: 1.5 cm LVOT diam: 1.9 cm LVIDs: 1.9 cm LVPWd: 1.1 cm FS: 46.9 % LVOT area: 2.8 cm2 asc Aorta Diam: 2.9 cm LAV(MOD-bp): 38.7 ml LVAd ap4: 24.9 cm2 LAV(MOD-bp) Indexed: 21.8 ml/m2 LVLd ap4: 7.6 cm LAV(MOD-sp2): 24.5 ml EDV(MOD-sp4): 66.9 ml LAV(MOD-sp4): 47.1 ml EDV(sp4-el): 70.3 ml LVAs ap4: 13.8 cm2 LVLs ap4: 6.5 cm ESV(MOD-sp4): 24.1 ml ESV(sp4-el): 25.0 ml EF(MOD-sp4): 64.1 % EF(sp4-el): 64.5 % SV(MOD-sp4): 42.9 ml SV(sp4-el): 45.3 ml LA A4 area: 17.0 cm2 SI(MOD-sp4): 24.1 ml/m2 RA A4 area: 6.9 cm2 TAPSE: 1.7 cm Time Measurements MV dec time: 0.12 sec Doppler Measurements & Calculations MV E max luis: 60.8 cm/sec Lat Peak E' Luis: 5.0 cm/sec Med Peak E' Luis: 4.6 cm/sec MV A max luis: 113.6 cm/sec E/E' lat: 12.1 E/E' med: 13.3 MV E/A: 0.54 MV V2 max: 125.6 cm/sec MV dec slope: 515.6 cm/sec2 Ao V2 max: 135.0 cm/sec MV max P.3 mmHg Ao max P.3 mmHg MV V2 mean: 74.5 cm/sec Ao V2 mean: 92.2 cm/sec MV mean P.6 mmHg Ao mean P.9 mmHg MV V2 VTI: 20.7 cm Ao V2 VTI: 24.5 cm MVA(VTI): 3.4 cm2 AV (velocity ratio): 1.0 LETA(I,D): 2.9 cm2 LETA(V,D): 2.9 cm2 LV V1 max: 139.0 cm/sec SV(LVOT): 70.7 ml PA V2 max: 112.0 cm/sec LV V1 max P.7 mmHg LV V1 mean P.5 mmHg LV V1 mean: 82.0 cm/sec LV V1 VTI: 25.3 cm TR max luis: 252.5 cm/sec TR max P.5 mmHg ECHO/Echo Complete W/ Contrast Interpretation Summary The estimated ejection fraction is 60 %. No evidence for diastolic dysfunction. [place] : Akinetic. Ordering Physician: Axel Rose Referring Physician: KUSUM RODRÍGUEZ Performed By: Therese Lemon and Student
--- NOTE | 2024-08-08 14:26 | PCM.RX.CS ---
Consult Antibiotic Management Pharmacy has been consulted to manage selected antibiotic: Vancomycin Type of Intervention Type of Consult: New start Suspected Infection Suspected Infection: Sepsis Prior Doses of Antibiotics Prior Doses of Antibiotics Received/Current Regimen: Vancomycin initial dose = 2000 mg Labs Labs: Sodium 143 mmol/L (136-145) 08/08/24 10:14 Potassium 5.0 mmol/L (3.5-5.1) 08/08/24 10:14 Chloride 114 mmol/L (98-107) H 08/08/24 10:14 Carbon Dioxide 16.0 mmol/L (21.0-32.0) L 08/08/24 10:14 Anion Gap 13 (5-15) 08/08/24 10:14 BUN 137 mg/dL (7-18) H* 08/08/24 10:14 Creatinine 3.64 mg/dL (0.55-1.02) H 08/08/24 10:14 Est GFR (MDRD) Af Amer 16 mL/min (>60) L 08/08/24 10:14 Est GFR (MDRD) Non-Af 13 mL/min (>60) L 08/08/24 10:14 BUN/Creatinine Ratio 37.6 RATIO (10-20) H 08/08/24 10:14 Glucose 756 mg/dL (74-106) H* 08/08/24 10:14 Dosing Weight Weight used for dosin kg Estimated Creatinine Clearance Estimated Creatinine Clearance: ~14 Goal Trough Goal Trough: 15-20 mcg/mL Pharmacy Plan for Drug Dosing Pharmacy Plan for Drug Dosing: Vancomycin 2000 mg IV x 1, subsequent dosing based on renal function improvement or random levels. Pharmacy Service will continue to monitor and adjust dosing as required. Follow-Up Labs Follow-Up Labs: Trough: Vancomycin Date/Time Labs Ordered Labs to be done on [date and time ordered]: 08/10/24 @ 0600
[2024-08-08 14:32] LABS: Reflex Lactate? Y
[2024-08-08] MEDS: Vancomycin HCl 2,000 MG in 0.9% Normal Saline (500mL Bag) 500 ML 250 MG IV (15:12)
[2024-08-08] MEDS: Pantoprazole Sodium 40 MG in 0.9% Normal Saline (100mL MB+) 100 ML 330 MG IV ×2 (15:34→20:32)
[2024-08-08 15:46] LABS: Bedside Glucose 477 mg/dL (74-106)
[2024-08-08] MEDS: Lactated Ringers 1,000 ML 999 ML IV ×3 (15:58→17:58)
[2024-08-08] MEDS: Heparin Injection (Vial) 5,000 UNIT/ML VIAL 5000 UNIT SC ×2 (15:58→20:29)
[2024-08-08 16:07] LABS: Lactic Acid 3.1 mmol/L (0.4-1.9)
[2024-08-08] MEDS: 0.45% Normal Saline 1,000 ML 200 ML IV ×2 (17:25→23:06)
[2024-08-08 17:32] LABS: Bedside Glucose 349 mg/dL (74-106)
[2024-08-08 17:38] LABS: Anion Gap 9 (5-15); BUN 125 mg/dL (7-18); BUN/Creat Ratio 40.6 RATIO (10-20); Calcium,Total 8.5 mg/dL (8.5-10.1); Chloride 124 mmol/L (98-107); Creatinine, Serum 3.08 mg/dL (0.55-1.02); EST Glomerular Filtration Rate 16 mL/min (>60); Est Glom Filt Rate - Afr Amer 19 mL/min (>60); Estimated Creatinine Clearance 16.58 ml/min; Glucose 381 mg/dL (74-106); Potassium 3.6 mmol/L (3.5-5.1); Sodium Level 151 mmol/L (136-145)
[2024-08-08] MEDS: Erythromycin Base 1 OPTH.TUBE 1 APPLIC EACH EYE (17:58)
[2024-08-08 18:10] LABS: Bedside Glucose 299 mg/dL (74-106)
[2024-08-08 19:09] LABS: Bedside Glucose 241 mg/dL (74-106)
[2024-08-08] MEDS: Chlorhexidine 15 ML PO (20:29)
[2024-08-08 20:31] LABS: Bedside Glucose 485 mg/dL (74-106)
[2024-08-08] MEDS: Piperacil/Tazobactam 3.375 GM in 0.9% Normal Saline (50mL MB+) 50 ML IV (20:32)
[2024-08-08 20:41] LABS: Bedside Glucose 196 mg/dL (74-106)
[2024-08-08 21:23] LABS: Anion Gap 6 (5-15); BUN 111 mg/dL (7-18); BUN/Creat Ratio 40.1 RATIO (10-20); Calcium,Total 8.2 mg/dL (8.5-10.1); Chloride 124 mmol/L (98-107); Creatinine, Serum 2.77 mg/dL (0.55-1.02); EST Glomerular Filtration Rate 18 mL/min (>60); Est Glom Filt Rate - Afr Amer 22 mL/min (>60); Estimated Creatinine Clearance 18.44 ml/min; Glucose 254 mg/dL (74-106); Potassium 3.6 mmol/L (3.5-5.1); Sodium Level 151 mmol/L (136-145)
[2024-08-08 21:44] LABS: Bedside Glucose 187 mg/dL (74-106)
[2024-08-08 23:27] LABS: Bedside Glucose 158 mg/dL (74-106)
[2024-08-09] VITALS (34 sets, daily range): BP systolic 116–144; BP diastolic 58–74; PULSE 72–94; RESP 14–19; TEMP 37.2–37.7; O2SAT 91–99; BMI 34.7
[2024-08-09] MEDS: Insulin Lispro 100 UNIT/ML INSULN.PEN SC ×5 (00:06→23:43)
[2024-08-09 00:08] LABS: Bedside Glucose 150 mg/dL (74-106)
[2024-08-09 01:02] LABS: Anion Gap 6 (5-15); BUN 105 mg/dL (7-18); BUN/Creat Ratio 39.8 RATIO (10-20); Calcium,Total 8.1 mg/dL (8.5-10.1); Chloride 125 mmol/L (98-107); Creatinine, Serum 2.64 mg/dL (0.55-1.02); EST Glomerular Filtration Rate 19 mL/min (>60); Est Glom Filt Rate - Afr Amer 23 mL/min (>60); Estimated Creatinine Clearance 19.34 ml/min; Glucose 177 mg/dL (74-106); Potassium 3.4 mmol/L (3.5-5.1); Sodium Level 152 mmol/L (136-145)
[2024-08-09] MEDS: Potassium Chloride Oral Soln 20 MEQ/15 ML UDC 40 MEQ GT (01:48)
[2024-08-09] MEDS: Dextrose 5%-Water (1000mL Bag) 1,000 ML 100 ML IV (01:48)
[2024-08-09 05:13] LABS: Absolute Lymphocyte Count 0.92 X10^3/uL (0.83-4.51); Absolute Neutrophil Count 7.7 X10^3/uL (2.0-7.7); Basophil# 0.04 X10^3/uL; Basophil% 0.4 % (0-1); Eosinophil# 0.24 X10^3/uL; Eosinophils% 2.3 % (0-5); Hemoglobin 9.9 g/dL (12.0-15.0); Lymphocyte # 0.92 X10^3/ul (0.83-4.51); Mean Corp Hgb Conc 31.9 g/dL (32-36); Mean Corpuscular Hgb 28.6 pg (27.0-32.0); Mean Corpuscular Volume 89.6 fL (81-99); Mean Platelet Vol. 9.8 fl (6.2-12.0); Monocyte# 1.15 X10^3/uL; Monocyte% 11.3 % (0-10); NRBC Flagged by Analyzer 0 % (0-5); Neutrophil # 7.74 X10^3/uL (2.7-7.7); Neutrophil % 75.7 % (47-70); Platelet Count 247 K/mm3 (150-450); RBC Distribution Width CV 14.4 % (11.6-14.6); RBC Distribution Width SD 46.3 fl (35.1-43.9); Red Blood Count 3.46 M/mm3 (4.2-5.4); White Blood Count 10.2 K/mm3 (4.4-11.0)
[2024-08-09 05:26] LABS: Phosphorus 2.7 mg/dL (2.5-4.9)
[2024-08-09 05:32] LABS: ALB/GLOB Ratio 0.6 RATIO (0.9-2.4); AST(SGOT) 34 U/L (15-37); Alanine Aminotransfer ALT/SGPT 51 U/L (13-56); Albumin, Serum 2.2 g/dL (3.2-5.0); Alkaline Phosphatase 91 U/L (45-117); Anion Gap 9 (5-15); BUN 100 mg/dL (7-18); BUN/Creat Ratio 39.4 RATIO (10-20); Bilirubin, Direct 0.09 mg/dL (0.00-0.30); CPK Total, Creatine Kinase 605 U/L (26-192); Chloride 122 mmol/L (98-107); Creatinine, Serum 2.54 mg/dL (0.55-1.02); EST Glomerular Filtration Rate 20 mL/min (>60); Est Glom Filt Rate - Afr Amer 24 mL/min (>60); Estimated Creatinine Clearance 20.76 ml/min; Globulin 3.7 g/dL (2.2-4.2); Glucose 260 mg/dL (74-106); Magnesium 2.3 mg/dL (1.6-2.6); Protein, Total 5.9 g/dL (6.4-8.2); Sodium Level 147 mmol/L (136-145)
--- NOTE | 2024-08-09 05:50 | RAD_ITS ---
INDICATION: vent pt EXAMINATION/TECHNIQUE: X-RAY - XR Chest 1 View AP portable. 5:48 AM COMPARISON: Prior study dated: 08/08/2024 FINDINGS: LINES/DEVICES: Tip of the endotracheal tube is 3.5 cm above the yajaira. NG tube tip in the stomach. Central venous catheter with tip in the region of the low right atrium, unchanged. LUNGS: Patchy opacity in the left lung base is slightly decreased. No consolidation. No pneumothorax. MEDIASTINUM: Unremarkable. CARDIAC [place]ETTE: Not enlarged. BONES AND SOFT TISSUES: No acute abnormalities. RAD/Chest 1 View (Portable) IMPRESSION: Partially decreased left basilar airspace disease. Electronically Signed: Fe Cooper MD at 7:38 EST ,
[2024-08-09 06:19] LABS: Bedside Glucose 237 mg/dL (74-106)
--- NOTE | 2024-08-09 07:12 | PCM.PN.HOSP ---
Reason for Visit Reason for Visit: Diagnoses Type 2 diabetes mellitus with hyperosmolarity without nonketotic hyperglycemic-hyperosmolar coma ([facility]) (08/08/24) Acidosis, unspecified (08/08/24) Pneumonitis due to inhalation of food and vomit (08/08/24) Acute respiratory failure, unspecified whether with hypoxia or hypercapnia (08/08/24) Rhabdomyolysis (08/08/24) Acute kidney failure, unspecified (08/08/24) Altered mental status, unspecified (08/08/24) Subjective Subjective Patient is a 68-year-old female admitted with altered mental status. An assessment of hyperosmolar nonketotic state, severe sepsis, acute kidney injury with metabolic acidosis made. Patient was intubated and admitted to the intensive care Objective Data Objective Data Vital Signs: Vital Signs Temp Pulse Resp BP Pulse Ox O2 Del Method O2 Flow Rate 99.5 F H 89 19 H 127/69 H 95 Mechanical Ventilator 15 08/09/24 05:00 08/09/24 07:09 08/09/24 07:09 08/09/24 07:00 08/09/24 07:09 08/09/24 07:00 08/08/24 10:09 FiO2 21 08/09/24 07:09 Oxygen Flow Rate (L/min) 15 Oxygen Delivery Method Mechanical Ventilator Weight: 83.4 kg Body Mass Index (BMI) 34.7 Intake & Output: Intake and Output for Last 24 Hours 08/07/24 08/08/24 08/09/24 23:59 23:59 23:59 Intake Total 6698.80 / 6705.70 689.63 / 689.63 Output Total 600 / 600 850 / 850 Balance 6098.80 / 6105.70 -160.37 / -160.37 Lab / Micro Data 08/09/24 05:05 08/09/24 05:05 Labs: Laboratory Results - last 24 hr 08/08/24 10:14: WBC 13.1 H, RBC 4.34, Hgb 12.2, Hct 39.2, MCV 90.3, MCH 28.1, MCHC 31.1 L, RDW Std Deviation 46.8 H, RDW Coeff of Steven 14.3, Plt Count 361, MPV 10.6, Immature Gran % (Auto) 0.500, Neut % (Auto) 85.4 H, Lymph % (Auto) 5.1 L, [place] % (Auto) 8.8, Eos % (Auto) 0.0, Baso % (Auto) 0.2, Absolute Neuts (auto) 11.2 H, Absolute Lymphs (auto) 0.67 L, Nucleated RBC % 0, PT 15.3 H, INR 1.2, APTT 22.8 L, Sodium 143, Potassium 5.0, Chloride 114 H, Carbon Dioxide 16.0 L, Anion Gap 13, BUN 137 H*, Creatinine 3.64 H, Estim Creat Clear Calc 14.28, Est GFR (MDRD) Af Amer 16 L, Est GFR (MDRD) Non-Af 13 L, BUN/Creatinine Ratio 37.6 H, Glucose 756 H*, Lactic Acid 2.0, Calcium 9.1, Magnesium 3.1 H, Total Bilirubin 0.30, Direct Bilirubin 0.09, AST 60 H, ALT 75 H, Alkaline Phosphatase 131 H, Troponin I High Sens 87 H, Total Protein 7.3, Albumin 3.0 L, Globulin 4.3 H, Lipase 19, Ethyl Alcohol < 3.0 08/08/24 10:20: Total Creatine Kinase 1562 H, Triglycerides 260 H, TSH 0.820, Urine Color Yellow, Urine Clarity Clear, Urine pH 6.0, Ur Specific [place] 1.020, Urine Protein 100 H, Urine Glucose (UA) 1000 H, Urine Ketones 15 H, Urine Occult Blood 50 H, Urine Nitrite Negative, Urine Bilirubin Negative, Urine Urobilinogen Normal, Ur Leukocyte Esterase Negative, Urine RBC 0 SEEN, Urine WBC 0-5 SEEN, Ur Squamous Epith Cells 0-5 SEEN, Urine Bacteria 2+, Urine Mucus 0 SEEN, Urine Opiates Screen NEGATIVE, Urine Methadone Screen NEGATIVE, Ur Barbiturates Screen NEGATIVE, Ur Phencyclidine Scrn NEGATIVE, Ur Amphetamines Screen NEGATIVE, MDMA (Ecstasy) Screen NEGATIVE, U Benzodiazepines Scrn NEGATIVE, Urine Cocaine Screen NEGATIVE, U Cannabinoids Screen NEGATIVE, Ur Drug Screen Comment 08/08/24 11:39: POC Glucose > 500 H* 08/08/24 12:10: Acetone Level SMALL H 08/08/24 12:36: POC Glucose > 500 H* 08/08/24 13:24: POC Glucose > 500 H* 08/08/24 14:38: POC Glucose 485 H* 08/08/24 14:45: Lactic Acid 3.1 H*, Ammonia 21.0 08/08/24 15:28: POC Glucose 477 H* 08/08/24 16:58: POC Glucose 349 H 08/08/24 17:00: Sodium 151 H, Potassium 3.6, Chloride 124 H, Carbon Dioxide 18.0 L, Anion Gap 9, BUN 125 H*, Creatinine 3.08 H, Estim Creat Clear Calc 16.58, Est GFR (MDRD) Af Amer 19 L, Est GFR (MDRD) Non-Af 16 L, BUN/Creatinine Ratio 40.6 H, Glucose 381 H, Calcium 8.5 08/08/24 17:52: POC Glucose 299 H 08/08/24 18:50: POC Glucose 241 H 08/08/24 20:19: POC Glucose 196 H 08/08/24 20:21: Sodium 151 H, Potassium 3.6, Chloride 124 H, Carbon Dioxide 20.0 L, Anion Gap 6, BUN 111 H*, Creatinine 2.77 H, Estim Creat Clear Calc 18.44, Est GFR (MDRD) Af Amer 22 L, Est GFR (MDRD) Non-Af 18 L, BUN/Creatinine Ratio 40.1 H, Glucose 254 H, Calcium 8.2 L 08/08/24 21:24: POC Glucose 187 H 08/08/24 23:01: POC Glucose 158 H 08/08/24 23:49: POC Glucose 150 H 08/09/24 00:13: Sodium 152 H, Potassium 3.4 L, Chloride 125 H, Carbon Dioxide 20.0 L, Anion Gap 6, BUN 105 H*, Creatinine 2.64 H, Estim Creat Clear Calc 19.34, Est GFR (MDRD) Af Amer 23 L, Est GFR (MDRD) Non-Af 19 L, BUN/Creatinine Ratio 39.8 H, Glucose 177 H, Calcium 8.1 L 08/09/24 05:05: WBC 10.2, RBC 3.46 L, Hgb 9.9 L, Hct 31.0 L, MCV 89.6, MCH 28.6, MCHC 31.9 L, RDW Std Deviation 46.3 H, RDW Coeff of Steven 14.4, Plt Count 247, MPV 9.8, Immature Gran % (Auto) 1.300 H, Neut % (Auto) 75.7 H, Lymph % (Auto) 9.0 L, [place] % (Auto) 11.3 H, Eos % (Auto) 2.3, Baso % (Auto) 0.4, Absolute Neuts (auto) 7.7, Absolute Lymphs (auto) 0.92, Nucleated RBC % 0, Sodium 147 H, Potassium 4.0, Chloride 122 H, Carbon Dioxide 16.0 L, Anion Gap 9, BUN 100 H, Creatinine 2.54 H, Estim Creat Clear Calc 20.76, Est GFR (MDRD) Af Amer 24 L, Est GFR (MDRD) Non-Af 20 L, BUN/Creatinine Ratio 39.4 H, Glucose 260 H, Calcium 8.0 L, Phosphorus 2.7, Magnesium 2.3, Total Bilirubin 0.40, Direct Bilirubin 0.09, AST 34, ALT 51, Alkaline Phosphatase 91, Total Creatine Kinase 605 H, Total Protein 5.9 L, Albumin 2.2 L, Globulin 3.7, Albumin/Globulin Ratio 0.6 L 08/09/24 06:01: POC Glucose 237 H Micro: Microbiology 08/08/24 11:06 Blood Culture (Wb) - Right Forearm Blood Culture - Preliminary 08/08/24 14:36 Mucosa - Nasopharyngeal SARS-CoV-2, Influenza & RSV (PCR) - Final 08/08/24 14:25 Wound - Left Foot Skin and Soft Tissue MRSA/MSSA (PCR - Final 08/08/24 14:18 Mucosa - Nose Coronavirus COVID-19 PCR - Final 08/08/24 14:25 Urine Catheter - Alas Streptococcus pneumoniae Antigen (M - Final 08/08/24 14:25 Urine Catheter - Alas Legionella Antigen - Final ABG Data ABG results: ABG 08/08/24 10:39 Specimen Type ART Sample Site L Radial pH 7.18 L* Bicarbonate Actual 15.3 L Total CO2 17 Base Excess -13 L O2 Saturation 100 H O2 % 100.0 ABG pCO2 40.6 ABG pO2 381 H* Slim Test Positive Respiration Rate 12 O2 Delivery Device Adult Vent Vent Mode AC Tidal Volume 450.0 POC PEEP 5 Crit Call To/Read Back Yes Blood Gas Notified Whom HOENE Blood Gas Notified Time 10:41:26 Radiography Diagnostic Testing: Radiology Impression Chest X-Ray 08/08/24 10:35 IMPRESSION: The tip of the endotracheal tube is at the origin of the right mainstem bronchus. It should be pulled back approximately 2 cm. The tip of the orogastric tube is in the stomach. Focal infiltrate in the left lower lobe and in the left lower lobe. Electronically Signed: Ibrahima Gutierrez MD at 11:10 EST , Brain CT 08/08/24 10:55 IMPRESSION: Chronic involutional changes of the brain. Partial opacification of maxillary and ethmoid sinuses. Electronically Signed: Ibrahima Gutierrez MD at 11:58 EST , Cervical Spine CT 08/08/24 10:55 IMPRESSION: Multilevel degenerative changes, as described above. Electronically Signed: Ibrahima Gutierrez MD at 11:13 EST , Chest X-Ray 08/08/24 12:00 IMPRESSION: The tip of the endotracheal tube is at 3.3 cm proximal to the yajaira. The tip of the orogastric tube is in the stomach. The tip of the right central venous catheter is in the right atrium. Stable pleural parenchymal changes at the left lung base. Electronically Signed: Ibrahima Gutierrez MD at 13:13 EST , Physical Exam Narrative GENERAL: Patient on the vent HEENT: ET tube in place EYES; erythema involving the left conjunctiva with swelling of the eyelid NECK; supple, normal thyroid, RESPIRATORY: Diminished to auscultation CARDIOVASCULAR: Regular S1 S2, GI: soft, normoactive bowel sounds, : No Renal angle tenderness; EXTREMITIES: Erythema and some blistering involving both upper and lower extremities MUSCULOSKELETAL: no muscle wasting NEURO: Patient is on the vent SKIN: PSYCH; unable to assess given patient presented to Assessment & Plan Assessment/Plan (1) Acute alteration in mental status: (2) Hyperosmolar hyperglycemic state (HHS): (3) Rhabdomyolysis: (4) BENJAMIN (acute kidney injury): (5) Acute respiratory failure: PLAN: Plan Patient is a 68-year-old female admitted with altered mental status. She was apparently found unresponsive in her room 1. Acute metabolic encephalopathy ? Multifactorial including hyperosmolar nonketotic state, severe sepsis, acute kidney injury with metabolic acidosis. Patient was intubated admitted to the intensive care unit with treatment of the underlying etiology. CT of the head obtained demonstrated chronic involutional changes of the brain and partial opacification of maxillary and ethmoid sinus. Patient will need to undergo subsequent evaluation with MRI when medically stable ? 08/09/2024; patient is currently off sedation however still remains unresponsive consult was placed to [facility] 2. Acute hypoxic respiratory failure ? Patient was found to have left lower lobe infiltrate consistent with pneumonia. Patient was intubated in the emergency department. 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 08/09/2024; patient remains on the vent 3. Severe sepsis ? Suspected to be secondary to aspiration pneumonia checks x-ray demonstrated right lower lobe infiltrate. Patient was started on IV fluids per protocol, broad-spectrum antibiotic therapy with cefepime, ciprofloxacin and vancomycin blood and sputum cultures sent. Also did send for viral respiratory final and COVID assay. Response to therapy being monitored with serial lactic acid level -08/09/2024 patient viral respiratory assay came back negative 4. Acute rhabdomyolysis ? Following prolonged period of immobilization of undetermined length. Patient started on fluids with subsequent monitoring of CPK levels ordered ? 08/09/2024 did continue patient IV fluid with subsequent monitoring of CPK level 5. Hyperosmolar nonketotic state ? Patient admitted to the intensive care unit started on fluids as well as parenteral insulin with every 4 BMPs ordered ? 08/09/2024; patient blood glucose levels 6. Diabetes mellitus type 2 Patient is on long-acting insulin in addition to scheduled short acting insulin. Had recently been started on tirzepatide to help improve her hemoglobin A1c. Her sister. Patient presented with hyperosmolar nonketotic state as stated above and treatment as described above 7. Acute kidney injury -superimposed on chronic kidney disease stage IV this is secondary to suspected ATN from patient rhabdo as well as severe sepsis ? 08/09/2024 consult was placed to nephrology the day prior 8. Metabolic acidosis -secondary to patient BENJAMIN and sepsis will continue with monitoring as documented. No indication for bicarb at this point 9. Acute transaminitis ? Suspected to be secondary to volume depletion patient receiving IV fluids 10. Class I obesity with BMI of 33.8 ? Patient had recently been started on tirzepatide to help with her weight as well as hemoglobin A1c 11. Dyslipidemia ? Patient is on statin therapy plan is to resume once patient is of the vent 12. GERD ? Patient was started on Protonix IV for GI prophylaxis 13. Essential hypertension ? Patient blood pressure remained stable held off her antihypertensives 14. DVT prophylaxis Subcu heparin Time spent in the patient's overall evaluation,decision-making process, review of diagnostic data, adjustment of management, discussion with other providers, nursing nursing and ancillary staff involved in patient's care documentation, 55 Minutes Charges/Coding Visit Charges Inpatient E&M: 70828 Subs Hosp L3
[2024-08-09] MEDS: Chlorhexidine 15 ML PO ×2 (07:44→20:13)
[2024-08-09] MEDS: Piperacil/Tazobactam 3.375 GM in 0.9% Normal Saline (50mL MB+) 50 ML IV ×2 (08:14→20:12)
[2024-08-09] MEDS: Pantoprazole Sodium 40 MG in 0.9% Normal Saline (100mL MB+) 100 ML 330 MG IV ×2 (08:14→20:12)
[2024-08-09] MEDS: Heparin Injection (Vial) 5,000 UNIT/ML VIAL 5000 UNIT SC ×2 (08:15→20:15)
--- NOTE | 2024-08-09 08:17 | PCM.PN.INT ---
Assessment & Plan Assessment/Plan (1) Acute alteration in mental status: (2) Metabolic acidosis: (3) Hyperosmolar hyperglycemic state (HHS): (4) Aspiration pneumonia: (5) BENJAMIN (acute kidney injury): PLAN: Plan RECOMMENDATIONS: 1. Continue assist-control mode of mechanical ventilation. Wean FiO2 and PEEP as tolerated. 2. Attempt to minimize sedation as tolerated to better assess baseline neurologic status. 3. Continue empiric antimicrobials. 4. Continue gentle IV fluid hydration. 5. Awaiting results of echocardiogram. 6. Consultations are pending to neurology and nephrology. 7. Continue appropriate ICU prophylaxis. IMPRESSIONS: 1. Acute hypoxemic respiratory failure The patient presented to the emergency department after being found down unresponsive of unclear duration. She was emergently intubated as a consequence of the aforementioned. There are clinical concerns for underlying aspiration pneumonia. Therefore, the patient has been placed on appropriate antimicrobials. The patient will be continued on assist-control mode of mechanical ventilation, with a goal to wean FiO2 and PEEP as tolerated to maintain saturations at or above 90%. 2. Acute metabolic encephalopathy The patient presented with a number of metabolic derangements and concern for HHS in the setting of poorly controlled diabetes mellitus. Initial CT head was unremarkable. TSH and ammonia were within normal limits. Continue to minimize sedation is much as tolerated to better assess the patient's underlying neurologic status. If the patient does not begin to improve after her metabolic derangements are corrected, we will need to consider MRI brain. 3. Hyperosmolar hyperglycemic state Resolved. The patient has a known history of poorly controlled diabetes mellitus. Agree with continuing Accu-Cheks and sliding scale insulin coverage for now. 4. Acute kidney injury Improving. Most likely prerenal in the setting of HHS, with concern for general hypovolemia after being found down. Agree with judicious IV fluid resuscitation. CK level, although elevated, is not consistent with rhabdomyolysis. Continue to monitor urine output for now. There is no urgent need for renal replacement therapy at the present time. 5. History of poorly controlled diabetes mellitus/obesity/GERD/neuropathy/hypertension Complicates care, management, recovery and prognosis. Continue to hold the remainder of the patient's home medications. TIME: 35 minutes of critical care time, independent of procedures, was spent addressing the patient's acute hypoxemic respiratory failure, acute metabolic encephalopathy, HHS, acute kidney injury, review of all data and collaboration with the care team. Subjective Subjective The patient was seen and examined at the bedside this morning. Events from the last 24 hours have been reviewed. The patient currently has a low-grade fever but remains otherwise hemodynamically stable on assist-control mode mechanical ventilation with an FiO2 requirement of 21% and PEEP of 5. The patient's propofol was currently on hold. The patient is not currently alert or able to follow commands. The patient's continuous insulin infusion has been discontinued. Her white blood cell count is normal this morning. Hemoglobin is stable at 9.9 g/dL. Repeat ABG from this morning demonstrated a pH of 7.35 with a pCO2 of 29 and pO2 of 83. Sodium is elevated at 147 with a chloride of 122, bicarbonate of 16, BUN of 100 and creatinine of 2.54. Total CK has improved to 605. Objective Data Objective Data The patient's most recent lab work, culture data and imaging studies have all been personally reviewed. 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 Blood culture dated August 08 was positive for Staph epidermidis. Vital Signs: Vital Signs Temp Pulse Resp BP Pulse Ox O2 Del Method O2 Flow Rate 99.5 F H 89 19 H 127/69 H 95 Mechanical Ventilator 15 08/09/24 05:00 08/09/24 07:09 08/09/24 07:09 08/09/24 07:00 08/09/24 07:09 08/09/24 07:00 08/08/24 10:09 FiO2 21 08/09/24 07:09 Oxygen Flow Rate (L/min) 15 Oxygen Delivery Method Mechanical Ventilator Weight: 183 lb 13.848 oz Body Mass Index (BMI) 34.7 Intake & Output: Intake and Output for Last 24 Hours 08/07/24 08/08/24 08/09/24 23:59 23:59 23:59 Intake Total 6698.80 / 6705.70 689.63 / 689.63 Output Total 600 / 600 850 / 850 Balance 6098.80 / 6105.70 -160.37 / -160.37 Lab / Micro Data Attestation: I reviewed the patient's lab results. 08/09/24 05:05 08/09/24 05:05 Labs: Laboratory Results - last 24 hr 08/08/24 10:14: WBC 13.1 H, RBC 4.34, Hgb 12.2, Hct 39.2, MCV 90.3, MCH 28.1, MCHC 31.1 L, RDW Std Deviation 46.8 H, RDW Coeff of Steven 14.3, Plt Count 361, MPV 10.6, Immature Gran % (Auto) 0.500, Neut % (Auto) 85.4 H, Lymph % (Auto) 5.1 L, [place] % (Auto) 8.8, Eos % (Auto) 0.0, Baso % (Auto) 0.2, Absolute Neuts (auto) 11.2 H, Absolute Lymphs (auto) 0.67 L, Nucleated RBC % 0, PT 15.3 H, INR 1.2, APTT 22.8 L, Sodium 143, Potassium 5.0, Chloride 114 H, Carbon Dioxide 16.0 L, Anion Gap 13, BUN 137 H*, Creatinine 3.64 H, Estim Creat Clear Calc 14.28, Est GFR (MDRD) Af Amer 16 L, Est GFR (MDRD) Non-Af 13 L, BUN/Creatinine Ratio 37.6 H, Glucose 756 H*, Lactic Acid 2.0, Calcium 9.1, Magnesium 3.1 H, Total Bilirubin 0.30, Direct Bilirubin 0.09, AST 60 H, ALT 75 H, Alkaline Phosphatase 131 H, Troponin I High Sens 87 H, Total Protein 7.3, Albumin 3.0 L, Globulin 4.3 H, Lipase 19, Ethyl Alcohol < 3.0 08/08/24 10:20: Total Creatine Kinase 1562 H, Triglycerides 260 H, TSH 0.820, Urine Color Yellow, Urine Clarity Clear, Urine pH 6.0, Ur Specific [place] 1.020, Urine Protein 100 H, Urine Glucose (UA) 1000 H, Urine Ketones 15 H, Urine Occult Blood 50 H, Urine Nitrite Negative, Urine Bilirubin Negative, Urine Urobilinogen Normal, Ur Leukocyte Esterase Negative, Urine RBC 0 SEEN, Urine WBC 0-5 SEEN, Ur Squamous Epith Cells 0-5 SEEN, Urine Bacteria 2+, Urine Mucus 0 SEEN, Urine Opiates Screen NEGATIVE, Urine Methadone Screen NEGATIVE, Ur Barbiturates Screen NEGATIVE, Ur Phencyclidine Scrn NEGATIVE, Ur Amphetamines Screen NEGATIVE, MDMA (Ecstasy) Screen NEGATIVE, U Benzodiazepines Scrn NEGATIVE, Urine Cocaine Screen NEGATIVE, U Cannabinoids Screen NEGATIVE, Ur Drug Screen Comment 08/08/24 11:39: POC Glucose > 500 H* 08/08/24 12:10: Acetone Level SMALL H 08/08/24 12:36: POC Glucose > 500 H* 08/08/24 13:24: POC Glucose > 500 H* 08/08/24 14:38: POC Glucose 485 H* 08/08/24 14:45: Lactic Acid 3.1 H*, Ammonia 21.0 08/08/24 15:28: POC Glucose 477 H* 08/08/24 16:58: POC Glucose 349 H 08/08/24 17:00: Sodium 151 H, Potassium 3.6, Chloride 124 H, Carbon Dioxide 18.0 L, Anion Gap 9, BUN 125 H*, Creatinine 3.08 H, Estim Creat Clear Calc 16.58, Est GFR (MDRD) Af Amer 19 L, Est GFR (MDRD) Non-Af 16 L, BUN/Creatinine Ratio 40.6 H, Glucose 381 H, Calcium 8.5 08/08/24 17:52: POC Glucose 299 H 08/08/24 18:50: POC Glucose 241 H 08/08/24 20:19: POC Glucose 196 H 08/08/24 20:21: Sodium 151 H, Potassium 3.6, Chloride 124 H, Carbon Dioxide 20.0 L, Anion Gap 6, BUN 111 H*, Creatinine 2.77 H, Estim Creat Clear Calc 18.44, Est GFR (MDRD) Af Amer 22 L, Est GFR (MDRD) Non-Af 18 L, BUN/Creatinine Ratio 40.1 H, Glucose 254 H, Calcium 8.2 L 08/08/24 21:24: POC Glucose 187 H 08/08/24 23:01: POC Glucose 158 H 08/08/24 23:49: POC Glucose 150 H 08/09/24 00:13: Sodium 152 H, Potassium 3.4 L, Chloride 125 H, Carbon Dioxide 20.0 L, Anion Gap 6, BUN 105 H*, Creatinine 2.64 H, Estim Creat Clear Calc 19.34, Est GFR (MDRD) Af Amer 23 L, Est GFR (MDRD) Non-Af 19 L, BUN/Creatinine Ratio 39.8 H, Glucose 177 H, Calcium 8.1 L 08/09/24 05:05: WBC 10.2, RBC 3.46 L, Hgb 9.9 L, Hct 31.0 L, MCV 89.6, MCH 28.6, MCHC 31.9 L, RDW Std Deviation 46.3 H, RDW Coeff of Steven 14.4, Plt Count 247, MPV 9.8, Immature Gran % (Auto) 1.300 H, Neut % (Auto) 75.7 H, Lymph % (Auto) 9.0 L, [place] % (Auto) 11.3 H, Eos % (Auto) 2.3, Baso % (Auto) 0.4, Absolute Neuts (auto) 7.7, Absolute Lymphs (auto) 0.92, Nucleated RBC % 0, Sodium 147 H, Potassium 4.0, Chloride 122 H, Carbon Dioxide 16.0 L, Anion Gap 9, BUN 100 H, Creatinine 2.54 H, Estim Creat Clear Calc 20.76, Est GFR (MDRD) Af Amer 24 L, Est GFR (MDRD) Non-Af 20 L, BUN/Creatinine Ratio 39.4 H, Glucose 260 H, Calcium 8.0 L, Phosphorus 2.7, Magnesium 2.3, Total Bilirubin 0.40, Direct Bilirubin 0.09, AST 34, ALT 51, Alkaline Phosphatase 91, Total Creatine Kinase 605 H, Total Protein 5.9 L, Albumin 2.2 L, Globulin 3.7, Albumin/Globulin Ratio 0.6 L 08/09/24 06:01: POC Glucose 237 H Micro: Microbiology 08/08/24 11:06 Blood Culture (Wb) - Right Forearm Blood Culture - Preliminary 08/08/24 14:36 Mucosa - Nasopharyngeal SARS-CoV-2, Influenza & RSV (PCR) - Final 08/08/24 14:25 Wound - Left Foot Skin and Soft Tissue MRSA/MSSA (PCR - Final 08/08/24 14:18 Mucosa - Nose Coronavirus COVID-19 PCR - Final 08/08/24 14:25 Urine Catheter - Alas Streptococcus pneumoniae Antigen (M - Final 08/08/24 14:25 Urine Catheter - Alas Legionella Antigen - Final ABG Data ABG results: ABG 08/08/24 10:39 Specimen Type ART Sample Site L Radial pH 7.18 L* Bicarbonate Actual 15.3 L Total CO2 17 Base Excess -13 L O2 Saturation 100 H O2 % 100.0 ABG pCO2 40.6 ABG pO2 381 H* Slim Test Positive Respiration Rate 12 O2 Delivery Device Adult Vent Vent Mode AC Tidal Volume 450.0 POC PEEP 5 Crit Call To/Read Back Yes Blood Gas Notified Whom HOENE Blood Gas Notified Time 10:41:26 Radiography Diagnostic Testing: Radiology Impression Chest X-Ray 08/08/24 10:35 IMPRESSION: The tip of the endotracheal tube is at the origin of the right mainstem bronchus. It should be pulled back approximately 2 cm. The tip of the orogastric tube is in the stomach. Focal infiltrate in the left lower lobe and in the left lower lobe. Electronically Signed: Ibrahima Gutierrez MD at 11:10 EST , Brain CT 08/08/24 10:55 IMPRESSION: Chronic involutional changes of the brain. Partial opacification of maxillary and ethmoid sinuses. Electronically Signed: Ibrahima Gutierrez MD at 11:58 EST , Cervical Spine CT 08/08/24 10:55 IMPRESSION: Multilevel degenerative changes, as described above. Electronically Signed: Ibrahima Gutierrez MD at 11:13 EST , Chest X-Ray 08/08/24 12:00 IMPRESSION: The tip of the endotracheal tube is at 3.3 cm proximal to the yajaira. The tip of the orogastric tube is in the stomach. The tip of the right central venous catheter is in the right atrium. Stable pleural parenchymal changes at the left lung base. Electronically Signed: Ibrahima Gutierrez MD at 13:13 EST , Chest X-Ray 08/09/24 05:50 IMPRESSION: Partially decreased left basilar airspace disease. Electronically Signed: Fe Cooper MD at 7:38 EST , Physical Exam Const Constitutional Narrative: Intubated, sedated and mechanically ventilated. Chronically ill in appearance. General Appearance: patient mechanically ventilated HEENT normocephalic and head/scalp atraumatic Mouth: endotracheal tube in place and OG tube in place Teeth and Gingiva: poor dentition Eyes Eyes Narrative: Sluggish pupillary reflex bilaterally. Neck supple General: trachea midline and CVC in place Chest inspection of chest normal Resp Auscultation: diminished lung sounds; Negative for rales, rhonchi or wheezes Cardio regular rate and regular rhythm GI normal to inspection, nondistended, normoactive bowel sounds Extremity no clubbing, cyanosis or edema Skin Skin Narrative: Scattered abrasions over face and trunk Neuro Sensorium / Orientation: sedated on vent Charges/Coding Procedures Hospitalists Procedures: 26078 Critical Care 1st Hr
[2024-08-09 09:32] LABS: Allen Test Positive; Base Excess -9 mmol/L (-2 to +2); Bicarbonate 16.3 mmol/L (22-26); Blood Gas Specimen Type ART; Mode AC; O2 Delivery Device Adult Vent; PEEP 5; PO2 83 mmHG (75-100); RR 16; SITE L Radial; SO2 96 % (95-99); Total Carbon Dioxide 17 mmol/L; pCO2 29.3 mmHg (35-45); pH 7.35 (7.35-7.45)
--- NOTE | 2024-08-09 09:58 | CASEMGMT ---
RN CM Assessment Face to Face with patient for initial transition planning/care coordination assessment. Pt is currently on the mechanical ventilator and is unable to answer this RN CM questions for assessment. Pt NOK (Sister Maia) at bedside and willing to help answer this RN CM questions for assessment. Care providers, pharmacy, and demographics verified. Admitting dx: Acute Metabolic Encephalopathy LACE Strata: 2 PCP: Hever Otoole Specialists: Inna (Podiatry), (Endo), Kristin Cedeno (Nephro) Preferred Pharmacy: [facility] [place] Insurance: [facility] Prescription Benefit: Yes LNOK: Maia Borja (Sister) Living Arrangements: Pt lives alone in a single story home with 4 steps to enter with a handrail. Per ICU rounds, it is unknown how long the pt was down for. Per Pat, the pt was last seen by family on . Pat states that she checked the pts BGM and it showed that the pt BS was 95 on Thursday (08/05) at 0108. ADLs/IADLs: Pat states that the pt is ind at baseline Transportation: Pt, sister, brother in law DME: Functioning BGM with sufficient supplies. shower bench. Cane. Rollator. Grab bars. HHC/SNF: Hx with [facility]. Hx at [place] Care Plan: TBD. Pt is currently on the vent and it is too early to determine what the safest DC plan will be for the pt moving forward. CM and SW to follow. PT will be held today per ICU Rounds. Yair Mackey RN, CM
[2024-08-09] MEDS: Lactated Ringers 1,000 ML 150 ML IV ×3 (10:13→23:43)
[2024-08-09] MEDS: Nystatin Powder 15gm Bottle 1 APPLIC TOPICAL ×2 (12:25→20:15)
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
[2024-08-09 12:55] LABS: Bedside Glucose 296 mg/dL (74-106)
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
--- NOTE | 2024-08-09 15:29 | NURSING ---
[facility] notified at this time of loss of corneal reflex. Organ team will call back for more information
[2024-08-09 17:43] LABS: Bedside Glucose 256 mg/dL (74-106)
[2024-08-09] MEDS: Erythromycin Base 1 OPTH.TUBE 1 APPLIC LEFT EYE (20:14)
[2024-08-10] VITALS (33 sets, daily range): BP systolic 132–167; BP diastolic 58–85; PULSE 18–93; RESP 13–19; TEMP 37.4–38.1; O2SAT 90–99
[2024-08-10 00:11] LABS: Bedside Glucose 254 mg/dL (74-106)
[2024-08-10] MEDS: Nystatin Powder 15gm Bottle 1 APPLIC TOPICAL ×3 (05:40→20:23)
[2024-08-10] MEDS: Insulin Lispro 100 UNIT/ML INSULN.PEN SC ×3 (06:10→17:14)
[2024-08-10] MEDS: Lactated Ringers 1,000 ML 150 ML IV (06:30)
[2024-08-10 06:39] LABS: Bedside Glucose 235 mg/dL (74-106)
[2024-08-10 07:31] LABS: Absolute Lymphocyte Count 1.14 X10^3/uL (0.83-4.51); Absolute Neutrophil Count 8.6 X10^3/uL (2.0-7.7); Basophil# 0.04 X10^3/uL; Basophil% 0.4 % (0-1); Eosinophil# 0.13 X10^3/uL; Eosinophils% 1.2 % (0-5); Hematocrit 32.3 % (37-47); Hemoglobin 10.1 g/dL (12.0-15.0); Lymphocyte # 1.14 X10^3/ul (0.83-4.51); Lymphocyte % 10.3 % (19-41); Mean Corp Hgb Conc 31.3 g/dL (32-36); Mean Corpuscular Hgb 28.2 pg (27.0-32.0); Mean Corpuscular Volume 90.2 fL (81-99); Mean Platelet Vol. 10.6 fl (6.2-12.0); Monocyte# 0.92 X10^3/uL; Monocyte% 8.3 % (0-10); NRBC Flagged by Analyzer 0 % (0-5); Neutrophil # 8.59 X10^3/uL (2.7-7.7); Neutrophil % 77.8 % (47-70); Platelet Count 247 K/mm3 (150-450); RBC Distribution Width CV 14.4 % (11.6-14.6); RBC Distribution Width SD 47.6 fl (35.1-43.9); Red Blood Count 3.58 M/mm3 (4.2-5.4)
--- NOTE | 2024-08-10 08:07 | PN.HOSP_ITS ---
Reason for Visit Reason for Visit: Diagnoses Type 2 diabetes mellitus with hyperosmolarity without nonketotic hyperglycemic- hyperosmolar coma ([facility]) (08/08/24) Acidosis, unspecified (08/08/24) Pneumonitis due to inhalation of food and vomit (08/08/24) Acute respiratory failure, unspecified whether with hypoxia or hypercapnia (08/08/24) Rhabdomyolysis (08/08/24) Acute kidney failure, unspecified (08/08/24) Altered mental status, unspecified (08/08/24) Subjective Subjective Patient remains on the vent. [facility] to undergo [facility]. Sputum cultures so far positive for gram-negative rods and blood cultures obtained on admission positive for staph epi. Objective Data Objective Data Vital Signs: Vital Signs Temp Pulse Resp BP Pulse Ox O2 Del Method O2 Flow Rate 99.7 F H 81 16 148/63 H 93 Mechanical Ventilator 15 08/10/24 00:00 08/10/24 06:00 08/10/24 06:00 08/10/24 06:00 08/10/24 06:00 08/10/24 06:00 08/08/24 10:09 FiO2 21 08/10/24 06:00 Oxygen Flow Rate (L/min) 15 Oxygen Delivery Method Mechanical Ventilator Weight: 83.4 kg Body Mass Index (BMI) 34.7 Intake & Output: Intake and Output for Last 24 Hours 08/08/24 08/09/24 08/10/24 23:59 23:59 23:59 Intake Total 6698.80 / 6705.70 4062.13 / 4062.13 1170 / 1170 Output Total 600 / 600 2450 / 2450 1150 / 1150 Balance 6098.80 / 6105.70 1612.13 / 1612.13 20 / 20 Lab / Micro Data 08/10/24 05:16 08/10/24 05:16 Labs: Laboratory Results - last 24 hr 08/09/24 12:22: POC Glucose 296 H 08/09/24 17:13: POC Glucose 256 H 08/09/24 23:42: POC Glucose 254 H 08/10/24 05:16: WBC 11.0, RBC 3.58 L, Hgb 10.1 L, Hct 32.3 L, MCV 90.2, MCH 28.2, MCHC 31.3 L, RDW Std Deviation 47.6 H, RDW Coeff of Steven 14.4, Plt Count 247, MPV 10.6, Immature Gran % (Auto) 2.000 H, Neut % (Auto) 77.8 H, Lymph % (Auto) 10.3 L, [place] % (Auto) 8.3, Eos % (Auto) 1.2, Baso % (Auto) 0.4, Absolute Neuts (auto) 8.6 H, Absolute Lymphs (auto) 1.14, Nucleated RBC % 0 08/10/24 06:18: POC Glucose 235 H Micro: Microbiology 08/08/24 14:36 Mucosa - Nasopharyngeal Respiratory Panel (PCR) - Final 08/08/24 10:35 Blood Culture (Wb) - Right Forearm Blood Culture - Preliminary 08/08/24 11:06 Blood Culture (Wb) - Right Forearm Bacteria Detection (PCR) - Final Staphylococcus epidermidis mecA Resistance Marker 08/08/24 11:06 Blood Culture (Wb) - Right Forearm Blood Culture - Preliminary Staphylococcus epidermidis mecA Resistance Marker 08/08/24 10:20 Urine Catheter - Alas Urine Culture - Preliminary Culture exhibits no growth. 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 08/08/24 14:36 Mucosa - Nasopharyngeal SARS-CoV-2, Influenza & RSV (PCR) - Final 08/08/24 14:25 Wound - Left Foot Skin and Soft Tissue MRSA/MSSA (PCR - Final 08/08/24 14:18 Mucosa - Nose Coronavirus COVID-19 PCR - Final 08/08/24 14:25 Urine Catheter - Alas Streptococcus pneumoniae Antigen (M - Final 08/08/24 14:25 Urine Catheter - Alas Legionella Antigen - Final ABG Data ABG results: ABG 08/09/24 09:29 Specimen Type ART Sample Site L Radial pH 7.35 Bicarbonate Actual 16.3 L Total CO2 17 Base Excess -9 L O2 Saturation 96 O2 % 50.0 ABG pCO2 29.3 L ABG pO2 83 Slim Test Positive Respiration Rate 16 O2 Delivery Device Adult Vent Vent Mode AC Tidal Volume 450.0 POC PEEP 5 Radiography Diagnostic Testing: Radiology Impression Echocardiogram 08/08/24 14:18 Interpretation Summary The estimated ejection fraction is 60 %. No evidence for diastolic dysfunction. [place] : Akinetic. Ordering Physician: Axel Rose Referring Physician: KUSUM RODRÍGUEZ Performed By: Therese Lemon and Student Physical Exam Narrative GENERAL: Patient on the vent HEENT: ET tube in place EYES; erythema involving the left conjunctiva with swelling of the eyelid NECK; supple, normal thyroid, RESPIRATORY: Diminished to auscultation CARDIOVASCULAR: Regular S1 S2, GI: soft, normoactive bowel sounds, : No Renal angle tenderness; EXTREMITIES: Erythema and some blistering involving both upper and lower extremities MUSCULOSKELETAL: no muscle wasting NEURO: Patient is on the vent SKIN: PSYCH; unable to assess given patient presented to Assessment & Plan Assessment/Plan (1) Acute alteration in mental status: (2) Hyperosmolar hyperglycemic state (HHS): (3) Rhabdomyolysis: (4) BENJAMIN (acute kidney injury): (5) Acute respiratory failure: PLAN: Plan Patient is a 68-year-old female admitted with altered mental status. She was apparently found unresponsive in her room 1. Acute metabolic encephalopathy ? Multifactorial including hyperosmolar nonketotic state, severe sepsis, acute kidney injury with metabolic acidosis. Patient was intubated admitted to the intensive care unit with treatment of the underlying etiology. CT of the head obtained demonstrated chronic involutional changes of the brain and partial opacification of maxillary and ethmoid sinus. Patient will need to undergo subsequent evaluation with MRI when medically stable ? 08/09/2024; patient is currently off sedation however still remains unresponsive [facility]Patient remains on the vent. [facility] made for patient to undergo EEG. Sputum cultures so far positive for gram-negative rods and blood cultures obtained on admission positive staph epi 2. Acute hypoxic respiratory failure ? Patient was found to have left lower lobe infiltrate consistent with pneumonia. Patient was intubated in the emergency department. Admitted to the intensive care unit with consultation placed to wheel filler for vent management ? 08/09/2024; patient remains on the vent 3. Severe sepsis ? Suspected to be secondary to aspiration pneumonia checks x-ray demonstrated right lower lobe infiltrate. Patient was started on IV fluids per protocol, broad-spectrum antibiotic therapy with cefepime, ciprofloxacin and vancomycin blood and sputum cultures sent. Also did send for viral respiratory final and COVID assay. Response to therapy being monitored with serial lactic acid level -08/09/2024 patient viral respiratory assay came back negative 4. Acute rhabdomyolysis ? Following prolonged period of immobilization of undetermined length. Patient started on fluids with subsequent monitoring of CPK levels ordered ? 08/09/2024 did continue patient IV fluid with subsequent monitoring of CPK level 5. Hyperosmolar nonketotic state ? Patient admitted to the intensive care unit started on fluids as well as parenteral insulin with every 4 BMPs ordered ? 08/09/2024; patient blood glucose levels 6. Diabetes mellitus type 2 Patient is on long-acting insulin in addition to scheduled short acting insulin. Had recently been started on tirzepatide to help improve her hemoglobin A1c. Her sister. Patient presented with hyperosmolar nonketotic state as stated above and treatment as described above 7. Acute kidney injury -superimposed on chronic kidney disease stage IV this is secondary to suspected ATN from patient rhabdo as well as severe sepsis ? 08/09/2024 consult was placed to nephrology the day prior 8. Metabolic acidosis -secondary to patient BENJAMIN and sepsis will continue with monitoring as documented. No indication for bicarb at this point 9. Acute transaminitis ? Suspected to be secondary to volume depletion patient receiving IV fluids 10. Class I obesity with BMI of 33.8 ? Patient had recently been started on tirzepatide to help with her weight as well as hemoglobin A1c 11. Dyslipidemia ? Patient is on statin therapy plan is to resume once patient is of the vent 12. GERD ? Patient was started on Protonix IV for GI prophylaxis 13. Essential hypertension ? Patient blood pressure remained stable held off her antihypertensives 14. DVT prophylaxis Subcu heparin Time spent in the patient's overall evaluation,decision-making process, review of diagnostic data, adjustment of management, discussion with other providers, nursing nursing and ancillary staff involved in patient's care documentation, 50 Minutes Charges/Coding Visit Charges Inpatient E&M: 45524 Subs Hosp L3
--- NOTE | 2024-08-10 08:18 | PCM.PN.INT ---
Assessment & Plan Assessment/Plan (1) Acute alteration in mental status: (2) Metabolic acidosis: (3) Hyperosmolar hyperglycemic state (HHS): (4) Aspiration pneumonia: (5) BENJAMIN (acute kidney injury): PLAN: Plan RECOMMENDATIONS: 1. Continue assist-control mode of mechanical ventilation. 2. Continue to hold all sedating medications. 3. Start basal insulin and continue sliding scale coverage. 4. Start D5W given hypernatremia. 5. Initiate tube feeding and free water flushes. 6. Continue empiric antibiotics, pending finalized culture workup. 7. EEG and MRI to be completed today. 8. Continue appropriate ICU prophylaxis. IMPRESSIONS: 1. Acute hypoxemic respiratory failure The patient presented to the emergency department after being found down unresponsive of unclear duration. She was emergently intubated as a consequence of the aforementioned. There are clinical concerns for underlying aspiration pneumonia. Therefore, the patient has been placed on appropriate antimicrobials. The patient will be continued on assist-control mode of mechanical ventilation, with a goal to wean FiO2 and PEEP as tolerated to maintain saturations at or above 90%. 2. Acute metabolic encephalopathy The patient presented with a number of metabolic derangements and concern for HHS in the setting of poorly controlled diabetes mellitus. Initial CT head was unremarkable. TSH and ammonia were within normal limits. Continue to hold all sedating medications. Plan to obtain EEG and MRI brain today. Neurology is following. 3. Hyperosmolar hyperglycemic state Resolved. The patient has a known history of poorly controlled diabetes mellitus. Initiate basal and continue sliding scale insulin coverage. 4. Acute kidney injury Improving. Most likely prerenal in the setting of HHS, with concern for general hypovolemia after being found down. Agree with judicious IV fluid resuscitation. CK level, although elevated, is not consistent with rhabdomyolysis. Continue to monitor urine output for now. There is no urgent need for renal replacement therapy at the present time. 5. History of poorly controlled diabetes mellitus/obesity/GERD/neuropathy/hypertension Complicates care, management, recovery and prognosis. Continue to hold the remainder of the patient's home medications. Okay to initiate tube feeding today from my perspective. TIME: 37 minutes of critical care time, independent of procedures, was spent addressing the patient's acute hypoxemic respiratory failure, acute metabolic encephalopathy, HHS, acute kidney injury, review of all data and collaboration with the care team. Subjective Subjective The patient was seen and examined at the bedside this morning. Events from the last 24 hours have been reviewed. The patient currently has a low-grade fever but remains otherwise hemodynamically stable on assist-control mode mechanical ventilation with an FiO2 requirement of 21% and PEEP of 5. The patient has been off of all sedation since early yesterday morning. She remains largely unresponsive on the ventilator. EEG for this morning is currently pending. White blood cell count is normal this morning. Hemoglobin is stable at 10.1 g/dL. Sodium is elevated at 150 with a chloride of 123, bicarbonate of 19 and creatinine of 1.83. Objective Data Objective Data The patient's most recent lab work, culture data and imaging studies have all been personally reviewed. 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 Blood culture dated August 08 was positive for Staph epidermidis. Vital Signs: Vital Signs Temp Pulse Resp BP Pulse Ox O2 Del Method O2 Flow Rate 99.7 F H 81 16 151/80 H 96 Mechanical Ventilator 15 08/10/24 08:00 08/10/24 08:00 08/10/24 08:00 08/10/24 08:00 08/10/24 08:00 08/10/24 08:00 08/08/24 10:09 FiO2 21 08/10/24 08:00 Oxygen Flow Rate (L/min) 15 Oxygen Delivery Method Mechanical Ventilator Weight: 183 lb 13.848 oz Body Mass Index (BMI) 34.7 Intake & Output: Intake and Output for Last 24 Hours 08/08/24 08/09/24 08/10/24 23:59 23:59 23:59 Intake Total 6698.80 / 6705.70 4062.13 / 4062.13 1170 / 1170 Output Total 600 / 600 2450 / 2450 1150 / 1150 Balance 6098.80 / 6105.70 1612.13 / 1612.13 Lab / Micro Data Attestation: I reviewed the patient's lab results. 08/10/24 05:16 08/10/24 05:16 Labs: Laboratory Results - last 24 hr 08/09/24 12:22: POC Glucose 296 H 08/09/24 17:13: POC Glucose 256 H 08/09/24 23:42: POC Glucose 254 H 08/10/24 05:16: WBC 11.0, RBC 3.58 L, Hgb 10.1 L, Hct 32.3 L, MCV 90.2, MCH 28.2, MCHC 31.3 L, RDW Std Deviation 47.6 H, RDW Coeff of Steven 14.4, Plt Count 247, MPV 10.6, Immature Gran % (Auto) 2.000 H, Neut % (Auto) 77.8 H, Lymph % (Auto) 10.3 L, [place] % (Auto) 8.3, Eos % (Auto) 1.2, Baso % (Auto) 0.4, Absolute Neuts (auto) 8.6 H, Absolute Lymphs (auto) 1.14, Nucleated RBC % 0 08/10/24 06:18: POC Glucose 235 H Micro: Microbiology 08/08/24 14:36 Mucosa - Nasopharyngeal Respiratory Panel (PCR) - Final 08/08/24 10:35 Blood Culture (Wb) - Right Forearm Blood Culture - Preliminary 08/08/24 11:06 Blood Culture (Wb) - Right Forearm Bacteria Detection (PCR) - Final Staphylococcus epidermidis mecA Resistance Marker 08/08/24 11:06 Blood Culture (Wb) - Right Forearm Blood Culture - Preliminary Staphylococcus epidermidis mecA Resistance Marker 08/08/24 10:20 Urine Catheter - Alas Urine Culture - Preliminary Culture exhibits no growth. 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 melting furnace skimmer 08/08/24 14:36 Mucosa - Nasopharyngeal SARS-CoV-2, Influenza & RSV (PCR) - Final 08/08/24 14:25 Wound - Left Foot Skin and Soft Tissue MRSA/MSSA (PCR - Final 08/08/24 14:18 Mucosa - Nose Coronavirus COVID-19 PCR - Final 08/08/24 14:25 Urine Catheter - Alas Streptococcus pneumoniae Antigen (M - Final 08/08/24 14:25 Urine Catheter - Alas Legionella Antigen - Final ABG Data ABG results: ABG 08/09/24 09:29 Specimen Type ART Sample Site L Radial pH 7.35 Bicarbonate Actual 16.3 L Total CO2 17 Base Excess -9 L O2 Saturation 96 O2 % 50.0 ABG pCO2 29.3 L ABG pO2 83 Slim Test Positive Respiration Rate 16 O2 Delivery Device Adult Vent Vent Mode AC Tidal Volume 450.0 POC PEEP 5 Radiography Diagnostic Testing: Radiology Impression Echocardiogram 08/08/24 14:18 Interpretation Summary The estimated ejection fraction is 60 %. No evidence for diastolic dysfunction. [place] : Akinetic. Ordering Physician: Axel Rose Referring Physician: KUSUM RODRÍGUEZ Performed By: Therese Lemon and Student Physical Exam Const Constitutional Narrative: Remains intubated and mechanically ventilated. Chronically ill in appearance. General Appearance: patient mechanically ventilated HEENT normocephalic and head/scalp atraumatic Mouth: endotracheal tube in place and OG tube in place Teeth and Gingiva: poor dentition Eyes Eyes Narrative: Sluggish pupillary reflex bilaterally. Horizontal nystagmus present in left eye Neck supple General: trachea midline and CVC in place Chest inspection of chest normal Resp Auscultation: diminished lung sounds; Negative for rales, rhonchi or wheezes Cardio regular rate and regular rhythm GI normal to inspection, nondistended, normoactive bowel sounds Extremity no clubbing, cyanosis or edema Skin Skin Narrative: Scattered abrasions over face and trunk Neuro Neuro Narrative: Comatose on the ventilator. Charges/Coding Procedures Hospitalists Procedures: [id number] Critical Care 1st Hr
[2024-08-10] MEDS: Chlorhexidine 15 ML PO ×2 (08:32→20:22)
[2024-08-10] MEDS: Pantoprazole Sodium 40 MG in 0.9% Normal Saline (100mL MB+) 100 ML 330 MG IV ×2 (08:33→20:21)
[2024-08-10] MEDS: Heparin Injection (Vial) 5,000 UNIT/ML VIAL 5000 UNIT SC ×2 (08:34→20:23)
[2024-08-10] MEDS: Piperacil/Tazobactam 3.375 GM in 0.9% Normal Saline (50mL MB+) 50 ML IV ×3 (08:35→20:48)
[2024-08-10] MEDS: Erythromycin Base 1 OPTH.TUBE 1 APPLIC LEFT EYE ×2 (08:35→20:22)
[2024-08-10 08:50] LABS: ALB/GLOB Ratio 0.6 RATIO (0.9-2.4); AST(SGOT) 26 U/L (15-37); Alanine Aminotransfer ALT/SGPT 48 U/L (13-56); Albumin, Serum 2.2 g/dL (3.2-5.0); Alkaline Phosphatase 108 U/L (45-117); Anion Gap 8 (5-15); BUN 65 mg/dL (7-18); BUN/Creat Ratio 35.5 RATIO (10-20); CPK Total, Creatine Kinase 298 U/L (26-192); Calcium,Total 8.4 mg/dL (8.5-10.1); Chloride 123 mmol/L (98-107); Creatinine, Serum 1.83 mg/dL (0.55-1.02); EST Glomerular Filtration Rate 29 mL/min (>60); Est Glom Filt Rate - Afr Amer 35 mL/min (>60); Estimated Creatinine Clearance 28.82 ml/min; Globulin 3.8 g/dL (2.2-4.2); Glucose 290 mg/dL (74-106); Potassium 3.7 mmol/L (3.5-5.1); Sodium Level 150 mmol/L (136-145)
--- NOTE | 2024-08-10 10:19 | MRI_ITS ---
STUDY: MRI BRAIN WITH AND WITHOUT CONTRAST REASON FOR EXAM: Female, 68 years old. Unresolving Encephalopathy TECHNIQUE: Standardized multiplanar fat and water weighted pulse sequences were obtained. clariscan 15ml iv was administered for the contrast portion of the examination. COMPARISON: CT of the brain dated August 08, 2024 FINDINGS: Normal size of the ventricles and extra-axial spaces for the patient''s age. There is mild focal gliosis of the left parietal lobe which is nonspecific in etiology possibly due to prior ischemia or other nonspecific brain injury or cerebritis.. There is serpiginous increased signal intensity on the T1-weighted imaging sequence which may be represent lamellar necrosis rather than subtle acute hemorrhage due to lack of signal loss on the gradient echo weighted imaging sequence. . The findings are unchanged since previous CAT scans dating back to November 30, 2023 Normal bilateral basal ganglia. Normal thalami. There is no extra-axial fluid accumulation. Normal flow voids within the major intracranial circulation suggesting patency by spin echo criteria. Normal venous enhancement. There is no enhancing intra-axial or extra-axial abnormality. Normal sella turcica, pituitary gland, infundibular stalk, optic chiasm and hypothalamus. Normal tectal plate and pineal gland. Normal midbrain, allison and medulla. Normal cerebellum. Normal basal cisterns. Normal bilateral temporal bones. Normal bilateral internal auditory canals. Increased signal intensity seen within the mastoid air cells bilaterally slightly more pronounced in the right consistent with inflammatory disease Postsurgical changes of the orbits. There is mucosal thickening of the maxillary sinuses more severe on the left as well as diffuse mucosal thickening of the bilateral ethmoid, frontal and sphenoid sinuses.. Normal calvarium and skull base. Normal visualized soft tissue structures. Normal visualized upper cervical spine. 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
[2024-08-10 10:21] LABS: Vancomycin, Random Level 15.6 ug/mL (0.0-15.0)
[2024-08-10] MEDS: Vital AF 1.2 Cal Liquid 1,000 ML 20 ML GT (11:55)
[2024-08-10] MEDS: Insulin Glargine-YFGN 100 UNIT/ML Pen 10 UNIT SC (11:55)
[2024-08-10] MEDS: Dextrose 5%-Water (1000mL Bag) 1,000 ML 75 ML IV (11:55)
--- NOTE | 2024-08-10 12:03 | PN.RENAL_ITS ---
Subjective Subjective remains unresponsive. low grade fevers. Objective Data Objective Data Vital Signs: Vital Signs Temp Pulse Resp BP Pulse Ox O2 Del Method O2 Flow Rate 99.5 F H 80 16 160/75 H 96 Mechanical Ventilator 15 08/10/24 11:00 08/10/24 11:00 08/10/24 11:00 08/10/24 11:00 08/10/24 11:00 08/10/24 11:00 08/08/24 10:09 FiO2 21 08/10/24 11:00 Oxygen Flow Rate (L/min) 15 Oxygen Delivery Method Mechanical Ventilator Weight: 83.4 kg Body Mass Index (BMI) 34.7 Intake & Output: Intake and Output for Last 24 Hours 08/08/24 08/09/24 08/10/24 23:59 23:59 23:59 Intake Total 6698.80 / 6705.70 4062.13 / 4062.13 1592.5 / 1592.5 Output Total 600 / 600 2450 / 2450 1400 / 1400 Balance 6098.80 / 6105.70 1612.13 / 1612.13 192.5 / 192.5 Lab / Micro Data 08/10/24 05:16 08/10/24 05:16 Labs: Laboratory Results - last 24 hr 08/09/24 12:22: POC Glucose 296 H 08/09/24 17:13: POC Glucose 256 H 08/09/24 23:42: POC Glucose 254 H 08/10/24 05:16: WBC 11.0, RBC 3.58 L, Hgb 10.1 L, Hct 32.3 L, MCV 90.2, MCH 28.2, MCHC 31.3 L, RDW Std Deviation 47.6 H, RDW Coeff of Steven 14.4, Plt Count 247, MPV 10.6, Immature Gran % (Auto) 2.000 H, Neut % (Auto) 77.8 H, Lymph % (Auto) 10.3 L, [place] % (Auto) 8.3, Eos % (Auto) 1.2, Baso % (Auto) 0.4, Absolute Neuts (auto) 8.6 H, Absolute Lymphs (auto) 1.14, Nucleated RBC % 0, Sodium 150 H , Potassium 3.7, Chloride 123 H, Carbon Dioxide 19.0 L, Anion Gap 8, BUN 65 H, C reatinine 1.83 H, Estim Creat Clear Calc 28.82, Est GFR (MDRD) Af Amer 35 L, Est GFR (MDRD) Non-Af 29 L, BUN/Creatinine Ratio 35.5 H, Glucose 290 H, Calcium 8.4 L, Total Bilirubin 0.50, AST 26, ALT 48, Alkaline Phosphatase 108, Total Creatine Kinase 298 H, Total Protein 6.0 L, Albumin 2.2 L, Globulin 3.8, A lbumin/Globulin Ratio 0.6 L, Random Vancomycin 15.6 H 08/10/24 06:18: POC Glucose 235 H Micro: Microbiology 08/08/24 10:20 Urine Catheter - Penny Urine Culture - Final Mixed Gram Positive Organisms 08/08/24 10:27 Sputum, Induced/Lukens Respiratory Culture - Preliminary Citrobacter braakii 08/08/24 11:06 Blood Culture (Wb) - Right Forearm Bacteria Detection (PCR) - Final Staphylococcus epidermidis mecA Resistance Marker 08/08/24 11:06 Blood Culture (Wb) - Right Forearm Blood Culture - Preliminary Staphylococcus epidermidis 08/08/24 10:35 Blood Culture (Wb) - Right Forearm Blood Culture - Preliminary Staphylococcus epidermidis 08/08/24 14:36 Mucosa - Nasopharyngeal Respiratory Panel (PCR) - Final 08/08/24 14:36 Mucosa - Nasopharyngeal SARS-CoV-2, Influenza & RSV (PCR) - Final 08/08/24 14:25 Wound - Left Foot Skin and Soft Tissue MRSA/MSSA (PCR - Final 08/08/24 14:18 Mucosa - Nose Coronavirus COVID-19 PCR - Final 08/08/24 14:25 Urine Catheter - Penny Streptococcus pneumoniae Antigen (M - Final 08/08/24 14:25 Urine Catheter - Penny Legionella Antigen - Final Radiography Diagnostic Testing: Radiology Impression Echocardiogram 08/08/24 14:18 Interpretation Summary The estimated ejection fraction is 60 %. No evidence for diastolic dysfunction. [place] : Akinetic. Ordering Physician: Axel Rose Referring Physician: KUSUM RODRÍGUEZ Performed By: Therese Lemon and Student Physical Exam Narrative no pallor no icterus no JVD s1s2 no murmurs lungs clear abdomen soft no organomegaly no edema no cyanosis penny + Const General Appearance: ill appearing Orientation / Consciousness: oriented to person Assessment & Plan Assessment/Plan (1) BENJAMIN (acute kidney injury): PLAN: History of CKD stage IV. Last known baseline creatinine is from February 2024 with a creatinine of 2.3. Likely diabetic nephropathy. Nonnephrotic range proteinuria. UnLikely obstructive since Penny indwelling. Creatinine is better today. Hypernatremia. due to lack of free water intake. D5W today Rhabdomyolysis. Likely due to prolonged immobilization. CPK levels better. Levels were not high to cause any renal issues. Altered mental status. EEG pending. Eventual brain MRI. CT is ok
[2024-08-10 12:17] LABS: Bedside Glucose 226 mg/dL (74-106)
--- NOTE | 2024-08-10 14:20 | NURSING ---
patient transferred to MRI with radiology nurses and respiratory therapist at this time
--- NOTE | 2024-08-10 15:50 | NURSING ---
back from MRI
[2024-08-10 17:34] LABS: Bedside Glucose 313 mg/dL (74-106)
[2024-08-11] VITALS (34 sets, daily range): BP systolic 111–170; BP diastolic 52–87; PULSE 67–90; RESP 15–23; TEMP 37.7–38.3; O2SAT 95–97; BMI 34.7
[2024-08-11] MEDS: Insulin Lispro 100 UNIT/ML INSULN.PEN SC ×4 (00:15→17:35)
[2024-08-11 00:30] LABS: Bedside Glucose 327 mg/dL (74-106)
[2024-08-11] MEDS: Vancomycin IV 1,000 MG/200 ML BAG 200 MG IV (00:53)
[2024-08-11] MEDS: CHLORHEXIDINE GLUC 2% CLOTH 1 EACH TOWELETTE TOPICAL (02:00)
[2024-08-11] MEDS: Dextrose 5%-Water (1000mL Bag) 1,000 ML 75 ML IV (02:42)
[2024-08-11 04:20] LABS: Absolute Lymphocyte Count 0.99 X10^3/uL (0.83-4.51); Basophil# 0.03 X10^3/uL; Basophil% 0.3 % (0-1); Eosinophil# 0.15 X10^3/uL; Eosinophils% 1.6 % (0-5); Hematocrit 31.5 % (37-47); Hemoglobin 9.9 g/dL (12.0-15.0); Lymphocyte # 0.99 X10^3/ul (0.83-4.51); Lymphocyte % 10.5 % (19-41); Mean Corp Hgb Conc 31.4 g/dL (32-36); Mean Corpuscular Hgb 28.1 pg (27.0-32.0); Mean Corpuscular Volume 89.5 fL (81-99); Mean Platelet Vol. 10.2 fl (6.2-12.0); Monocyte# 0.86 X10^3/uL; Monocyte% 9.2 % (0-10); NRBC Flagged by Analyzer 0.2 % (0-5); Neutrophil # 6.97 X10^3/uL (2.7-7.7); Neutrophil % 74.2 % (47-70); Platelet Count 221 K/mm3 (150-450); RBC Distribution Width CV 14.1 % (11.6-14.6); RBC Distribution Width SD 45.5 fl (35.1-43.9); Red Blood Count 3.52 M/mm3 (4.2-5.4); White Blood Count 9.4 K/mm3 (4.4-11.0)
[2024-08-11 04:41] LABS: ALB/GLOB Ratio 0.5 RATIO (0.9-2.4); AST(SGOT) 28 U/L (15-37); Alanine Aminotransfer ALT/SGPT 46 U/L (13-56); Albumin, Serum 1.9 g/dL (3.2-5.0); Alkaline Phosphatase 131 U/L (45-117); Anion Gap 9 (5-15); BUN 49 mg/dL (7-18); BUN/Creat Ratio 25.5 RATIO (10-20); CPK Total, Creatine Kinase 126 U/L (26-192); Calcium,Total 8.1 mg/dL (8.5-10.1); Chloride 114 mmol/L (98-107); Creatinine, Serum 1.92 mg/dL (0.55-1.02); EST Glomerular Filtration Rate 28 mL/min (>60); Est Glom Filt Rate - Afr Amer 33 mL/min (>60); Estimated Creatinine Clearance 27.47 ml/min; Globulin 3.8 g/dL (2.2-4.2); Glucose 407 mg/dL (74-106); Potassium 3.4 mmol/L (3.5-5.1); Protein, Total 5.7 g/dL (6.4-8.2); Sodium Level 144 mmol/L (136-145)
[2024-08-11] MEDS: Nystatin Powder 15gm Bottle 1 APPLIC TOPICAL ×3 (05:33→20:26)
[2024-08-11] MEDS: Piperacil/Tazobactam 3.375 GM in 0.9% Normal Saline (50mL MB+) 50 ML IV ×3 (05:41→20:40)
[2024-08-11 06:01] LABS: Bedside Glucose 380 mg/dL (74-106)
--- NOTE | 2024-08-11 08:09 | PCM.PN.INT ---
Assessment & Plan Assessment/Plan (1) Acute alteration in mental status: (2) Metabolic acidosis: (3) Hyperosmolar hyperglycemic state (HHS): (4) Aspiration pneumonia: (5) BENJAMIN (acute kidney injury): PLAN: Plan RECOMMENDATIONS: 1. Continue assist-control mode of mechanical ventilation. 2. Continue to hold all sedating medications. 3. Increase basal insulin and continue sliding scale coverage. 4. Stop D5W. 5. Continue tube feeding and free water flushes. 6. Continue empiric antibiotics, pending finalized culture workup. 7. Awaiting results of EEG. Recommend neurology follow-up after testing is completed. 8. Continue appropriate ICU prophylaxis. IMPRESSIONS: 1. Acute hypoxemic respiratory failure The patient presented to the emergency department after being found down unresponsive of unclear duration. She was emergently intubated as a consequence of the aforementioned. There are clinical concerns for underlying aspiration pneumonia. Therefore, the patient has been placed on appropriate antimicrobials. The patient will be continued on assist-control mode of mechanical ventilation, with a goal to wean FiO2 and PEEP as tolerated to maintain saturations at or above 90%. 2. Acute metabolic encephalopathy The patient presented with a number of metabolic derangements and concern for HHS in the setting of poorly controlled diabetes mellitus. Initial CT head was unremarkable. TSH and ammonia were within normal limits. Continue to hold all sedating medications. MRI brain was unrevealing. EEG read is pending. Recommend neurology follow-up after testing is completed. 3. Hyperosmolar hyperglycemic state Resolved. The patient has a known history of poorly controlled diabetes mellitus. Continue basal and continue sliding scale insulin coverage. 4. Acute kidney injury Improving. Most likely prerenal in the setting of HHS, with concern for general hypovolemia after being found down. Agree with judicious IV fluid resuscitation. CK level, although elevated, is not consistent with rhabdomyolysis. Continue to monitor urine output for now. There is no urgent need for renal replacement therapy at the present time. 5. History of poorly controlled diabetes mellitus/obesity/GERD/neuropathy/hypertension Complicates care, management, recovery and prognosis. Continue to hold the remainder of the patient's home medications. Continue tube feeding and free water flushes as tolerated. TIME: 34 minutes of critical care time, independent of procedures, was spent addressing the patient's acute hypoxemic respiratory failure, acute metabolic encephalopathy, HHS, acute kidney injury, review of all data and collaboration with the care team. Subjective Subjective The patient was seen and examined at the bedside this morning. Events from the last 24 hours have been reviewed. The patient currently has a low-grade fever but remains otherwise hemodynamically stable on assist-control mode mechanical ventilation with an FiO2 requirement of 21% and PEEP of 5. The patient remains off of all forms of sedation. She remains largely comatose on the ventilator. She does not follow any commands, but does appear to be moving her extremities spontaneously. She has been tolerant of tube feeding. MRI completed yesterday was unrevealing. EEG is pending. The patient's family was updated on her overall clinical status. White blood cell count is normal this morning. Hemoglobin was noted to be 9.9 g/dL. Potassium is low at 3.4 with a creatinine of 1.92. Glucose is elevated at 407. The patient's hypernatremia has resolved. Objective Data Objective Data The patient's most recent lab work, culture data and imaging studies have all been personally reviewed. 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 Blood culture dated August 08 was positive for Staph epidermidis. Vital Signs: Vital Signs Temp Pulse Resp BP Pulse Ox O2 Del Method O2 Flow Rate 100.1 F H 84 18 158/73 H 96 Mechanical Ventilator 15 08/11/24 07:00 08/11/24 07:00 08/11/24 07:00 08/11/24 07:00 08/11/24 07:00 08/11/24 07:00 08/08/24 10:09 FiO2 21 08/11/24 07:00 Oxygen Flow Rate (L/min) 15 Oxygen Delivery Method Mechanical Ventilator Weight: 183 lb 13.848 oz Body Mass Index (BMI) 34.7 Intake & Output: Intake and Output for Last 24 Hours 08/09/24 08/10/24 08/11/24 23:59 23:59 23:59 Intake Total 4062.13 / 4062.13 2367.83 / 2507.83 1724.5 / 1724.5 Output Total 2450 / 2450 2625 / 2950 1065 / 1065 Balance 1612.13 / 1612.13 -257.17 / -442.17 659.5 / 659.5 Lab / Micro Data Attestation: I reviewed the patient's lab results. 12/05/24 03:50 08/11/24 03:50 Labs: Laboratory Results - last 24 hr 08/10/24 05:16: Sodium 150 H, Potassium 3.7, Chloride 123 H, Carbon Dioxide 19.0 L, Anion Gap 8, BUN 65 H, Creatinine 1.83 H, Estim Creat Clear Calc 28.82, Est GFR (MDRD) Af Amer 35 L, Est GFR (MDRD) Non-Af 29 L, BUN/Creatinine Ratio 35.5 H, Glucose 290 H, Calcium 8.4 L, Total Bilirubin 0.50, AST 26, ALT 48, Alkaline Phosphatase 108, Total Creatine Kinase 298 H, Total Protein 6.0 L, Albumin 2.2 L, Globulin 3.8, Albumin/Globulin Ratio 0.6 L, Random Vancomycin 15.6 H 08/10/24 11:03: POC Glucose 226 H 08/10/24 17:14: POC Glucose 313 H 08/11/24 00:09: POC Glucose 327 H 08/11/24 03:50: WBC 9.4, RBC 3.52 L, Hgb 9.9 L, Hct 31.5 L, MCV 89.5, MCH 28.1, MCHC 31.4 L, RDW Std Deviation 45.5 H, RDW Coeff of Steven 14.1, Plt Count 221, MPV 10.2, Immature Gran % (Auto) 4.200 H, Neut % (Auto) 74.2 H, Lymph % (Auto) 10.5 L, [place] % (Auto) 9.2, Eos % (Auto) 1.6, Baso % (Auto) 0.3, Absolute Neuts (auto) 7.0, Absolute Lymphs (auto) 0.99, Nucleated RBC % 0.2, Sodium 144, Potassium 3.4 L, Chloride 114 H, Carbon Dioxide 21.0, Anion Gap 9, BUN 49 H, Creatinine 1.92 H, Estim Creat Clear Calc 27.47, Est GFR (MDRD) Af Amer 33 L, Est GFR (MDRD) Non-Af 28 L, BUN/Creatinine Ratio 25.5 H, Glucose 407 H, Calcium 8.1 L, Total Bilirubin 0.40, AST 28, ALT 46, Alkaline Phosphatase 131 H, Total Creatine Kinase 126, Total Protein 5.7 L, Albumin 1.9 L, Globulin 3.8, Albumin/Globulin Ratio 0.5 L 08/11/24 05:39: POC Glucose 380 H Micro: Microbiology 08/08/24 10:27 Sputum, Induced/Lukens Gram Stain - Final 08/08/24 10:27 Sputum, Induced/Lukens Respiratory Culture - Preliminary Citrobacter braakii 08/08/24 10:20 Urine Catheter - Alas Urine Culture - Final Mixed Gram Positive Organisms 08/08/24 11:06 Blood Culture (Wb) - Right Forearm Bacteria Detection (PCR) - Final Staphylococcus epidermidis mecA Resistance Marker 08/08/24 11:06 Blood Culture (Wb) - Right Forearm Blood Culture - Preliminary Staphylococcus epidermidis 08/08/24 10:35 Blood Culture (Wb) - Right Forearm Blood Culture - Preliminary Staphylococcus epidermidis 08/08/24 14:36 Mucosa - Nasopharyngeal Respiratory Panel (PCR) - Final 08/08/24 14:36 Mucosa - Nasopharyngeal SARS-CoV-2, Influenza & RSV (PCR) - Final 08/08/24 14:25 Wound - Left Foot Skin and Soft Tissue MRSA/MSSA (PCR - Final 08/08/24 14:18 Mucosa - Nose Coronavirus COVID-19 PCR - Final 08/08/24 14:25 Urine Catheter - Alas Streptococcus pneumoniae Antigen (M - Final 08/08/24 14:25 Urine Catheter - Alas Legionella Antigen - Final ABG Data ABG results: ABG 08/09/24 09:29 Specimen Type ART Sample Site L Radial pH 7.35 Bicarbonate Actual 16.3 L Total CO2 17 Base Excess -9 L O2 Saturation 96 O2 % 50.0 ABG pCO2 29.3 L ABG pO2 83 Slim Test Positive Respiration Rate 16 O2 Delivery Device Adult Vent Vent Mode AC Tidal Volume 450.0 POC PEEP 5 Radiography Diagnostic Testing: Radiology Impression Brain MRI 08/10/24 10:19 IMPRESSION: Findings which are most consistent with 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 Chronically ill in appearance. General Appearance: patient mechanically ventilated HEENT normocephalic and head/scalp atraumatic Mouth: endotracheal tube in place and OG tube in place Teeth and Gingiva: poor dentition Eyes Eyes Narrative: Sluggish pupillary reflex bilaterally. Neck supple General: trachea midline and CVC in place Chest inspection of chest normal Resp Auscultation: diminished lung sounds; Negative for rales, rhonchi or wheezes Cardio regular rate and regular rhythm GI normal to inspection, nondistended, normoactive bowel sounds Extremity no clubbing, cyanosis or edema Skin Skin Narrative: Scattered abrasions over face and trunk Neuro Neuro Narrative: Comatose on the ventilator. Currently moving lower extremities spontaneously. Charges/Coding Procedures Hospitalists Procedures: [id number] Critical Care 1st Hr
--- NOTE | 2024-08-11 08:29 | PN.HOSP_ITS ---
Reason for Visit Reason for Visit: Diagnoses Type 2 diabetes mellitus with hyperosmolarity without nonketotic hyperglycemic- hyperosmolar coma ([facility]) (08/08/24) Acidosis, unspecified (08/08/24) Pneumonitis due to inhalation of food and vomit (08/08/24) Acute respiratory failure, unspecified whether with hypoxia or hypercapnia (08/08/24) Rhabdomyolysis (08/08/24) Acute kidney failure, unspecified (08/08/24) Altered mental status, unspecified (08/08/24) Subjective Subjective Patient seen no change in clinical condition. MRI demonstrated pansinusitis no acute CVA. EEG was performed the day prior results pending Objective Data Objective Data Vital Signs: Vital Signs Temp Pulse Resp BP Pulse Ox O2 Del Method O2 Flow Rate 100.3 F H 81 23 H 170/77 H 97 Mechanical Ventilator 15 08/11/24 08:00 08/11/24 08:00 08/11/24 08:00 08/11/24 08:00 08/11/24 08:00 08/11/24 08:00 08/08/24 10:09 FiO2 21 08/11/24 08:00 Oxygen Flow Rate (L/min) 15 Oxygen Delivery Method Mechanical Ventilator Weight: 83.4 kg Body Mass Index (BMI) 34.7 Intake & Output: Intake and Output for Last 24 Hours 08/09/24 08/10/24 08/11/24 23:59 23:59 23:59 Intake Total 4062.13 / 4062.13 2367.83 / 2507.83 1724.5 / 1724.5 Output Total 2450 / 2450 2625 / 2950 1065 / 1065 Balance 1612.13 / 1612.13 -257.17 / -442.17 659.5 / 659.5 Lab / Micro Data 08/11/24 03:50 08/11/24 03:50 Labs: Laboratory Results - last 24 hr 08/10/24 05:16: Sodium 150 H, Potassium 3.7, Chloride 123 H, Carbon Dioxide 19.0 L, Anion Gap 8, BUN 65 H, Creatinine 1.83 H, Estim Creat Clear Calc 28.82, Est GFR (MDRD) Af Amer 35 L, Est GFR (MDRD) Non-Af 29 L, BUN/Creatinine Ratio 35.5 H , Glucose 290 H, Calcium 8.4 L, Total Bilirubin 0.50, AST 26, ALT 48, Alkaline Phosphatase 108, Total Creatine Kinase 298 H, Total Protein 6.0 L, Albumin 2.2 L , Globulin 3.8, Albumin/Globulin Ratio 0.6 L, Random Vancomycin 15.6 H 08/10/24 11:03: POC Glucose 226 H 08/10/24 17:14: POC Glucose 313 H 08/11/24 00:09: POC Glucose 327 H 08/11/24 03:50: WBC 9.4, RBC 3.52 L, Hgb 9.9 L, Hct 31.5 L, MCV 89.5, MCH 28.1, MCHC 31.4 L, RDW Std Deviation 45.5 H, RDW Coeff of Steven 14.1, Plt Count 221, MPV 10.2, Immature Gran % (Auto) 4.200 H, Neut % (Auto) 74.2 H, Lymph % (Auto) 10.5 L, [place] % (Auto) 9.2, Eos % (Auto) 1.6, Baso % (Auto) 0.3, Absolute Neuts (auto) 7.0, Absolute Lymphs (auto) 0.99, Nucleated RBC % 0.2, Sodium 144, Potassium 3.4 L, Chloride 114 H, Carbon Dioxide 21.0, Anion Gap 9, BUN 49 H, Creatinine 1.92 H , Estim Creat Clear Calc 27.47, Est GFR (MDRD) Af Amer 33 L, Est GFR (MDRD) Non- Af 28 L, BUN/Creatinine Ratio 25.5 H, Glucose 407 H, Calcium 8.1 L, Total Bilirubin 0.40, AST 28, ALT 46, Alkaline Phosphatase 131 H, Total Creatine Kinase 126, Total Protein 5.7 L, Albumin 1.9 L, Globulin 3.8, Albumin/Globulin Ratio 0.5 L 08/11/24 05:39: POC Glucose 380 H Micro: Microbiology 08/08/24 10:35 Blood Culture (Wb) - Right Forearm Blood Culture - Final Staphylococcus epidermidis 08/08/24 10:27 Sputum, Induced/Lukens Gram Stain - Final 08/08/24 10:27 Sputum, Induced/Lukens Respiratory Culture - Preliminary Citrobacter braakii 08/08/24 10:20 Urine Catheter - Alas Urine Culture - Final Mixed Gram Positive Organisms 08/08/24 11:06 Blood Culture (Wb) - Right Forearm Bacteria Detection (PCR) - Final Staphylococcus epidermidis mecA Resistance Marker 08/08/24 11:06 Blood Culture (Wb) - Right Forearm Blood Culture - Preliminary Staphylococcus epidermidis 08/08/24 14:36 Mucosa - Nasopharyngeal Respiratory Panel (PCR) - Final 08/08/24 14:36 Mucosa - Nasopharyngeal SARS-CoV-2, Influenza & RSV (PCR) - Final 08/08/24 14:25 Wound - Left Foot Skin and Soft Tissue MRSA/MSSA (PCR - Final 08/08/24 14:18 Mucosa - Nose Coronavirus COVID-19 PCR - Final 08/08/24 14:25 Urine Catheter - Alas Streptococcus pneumoniae Antigen (M - Final 08/08/24 14:25 Urine Catheter - Alas Legionella Antigen - Final Radiography Diagnostic Testing: Radiology Impression Brain MRI 08/10/24 10:19 IMPRESSION: Findings which are most consistent with 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 Incidental finding of diffuse pansinusitis and bilateral mastoid sinus disease likely chronic Electronically Signed: Wilfrido Xavier MD at 16:21 EST Reading Location ID and State: [facility] / [place] Tel , Service support , Physical Exam Narrative GENERAL: Patient on the vent HEENT: ET tube in place EYES; erythema involving the left conjunctiva with swelling of the eyelid NECK; supple, normal thyroid, RESPIRATORY: Diminished to auscultation CARDIOVASCULAR: Regular S1 S2, GI: soft, normoactive bowel sounds, : No Renal angle tenderness; EXTREMITIES: Erythema and some blistering involving both upper and lower extremities MUSCULOSKELETAL: no muscle wasting NEURO: Patient is on the vent SKIN: PSYCH; unable to assess given patient presented to Assessment & Plan Assessment/Plan (1) Acute alteration in mental status: (2) Hyperosmolar hyperglycemic state (HHS): (3) Rhabdomyolysis: (4) BENJAMIN (acute kidney injury): (5) Acute respiratory failure: PLAN: Plan Patient is a 68-year-old female admitted with altered mental status. She was apparently found unresponsive in her room 1. Acute metabolic encephalopathy ? Multifactorial including hyperosmolar nonketotic state, severe sepsis, acute kidney injury with metabolic acidosis. Patient was intubated admitted to the intensive care unit with treatment of the underlying etiology. CT of the head obtained demonstrated chronic involutional changes of the brain and partial opacification of maxillary and ethmoid sinus. Patient will need to undergo subsequent evaluation with MRI when medically stable ? 08/09/2024; patient is currently off sedation however still remains unresponsive consult was placed to [facility] 08/2024;Patient remains on the vent. [facility] made for patient to undergo EEG. Sputum cultures so far positive for gram-negative rods and blood cultures obtained on admission positive staph epi ? 08/11/2024;Patient seen no change in clinical condition. MRI demonstrated pansinusitis no acute CVA. EEG was performed the day prior results pending 2. Acute hypoxic respiratory failure ? Patient was found to have left lower lobe infiltrate consistent with pneumonia. Patient was intubated in the emergency department. Admitted to the intensive care unit with consultation placed to highway traffic control technician for vent management ? 08/09/2024; patient remains on the vent 3. Severe sepsis ? Suspected to be secondary to aspiration pneumonia checks x-ray demonstrated right lower lobe infiltrate. Patient was started on IV fluids per protocol, broad-spectrum antibiotic therapy with cefepime, ciprofloxacin and vancomycin blood and sputum cultures sent. Also did send for viral respiratory final and COVID assay. Response to therapy being monitored with serial lactic acid level -08/09/2024 patient viral respiratory assay came back negative 4. Acute rhabdomyolysis ? Following prolonged period of immobilization of undetermined length. Patient started on fluids with subsequent monitoring of CPK levels ordered ? 08/09/2024 did continue patient IV fluid with subsequent monitoring of CPK level 5. Hyperosmolar nonketotic state ? Patient admitted to the intensive care unit started on fluids as well as parenteral insulin with every 4 BMPs ordered ? 08/09/2024; patient blood glucose levels 6. Diabetes mellitus type 2 Patient is on long-acting insulin in addition to scheduled short acting insulin. Had recently been started on tirzepatide to help improve her hemoglobin A1c. Her sister. Patient presented with hyperosmolar nonketotic state as stated above and treatment as described above 7. Acute kidney injury -superimposed on chronic kidney disease stage IV this is secondary to suspected ATN from patient rhabdo as well as severe sepsis ? 08/09/2024 consult was placed to nephrology the day prior 8. Metabolic acidosis -secondary to patient BENJAMIN and sepsis will continue with monitoring as documented. No indication for bicarb at this point 9. Acute transaminitis ? Suspected to be secondary to volume depletion patient receiving IV fluids 10. Class I obesity with BMI of 33.8 ? Patient had recently been started on tirzepatide to help with her weight as well as hemoglobin A1c 11. Dyslipidemia ? Patient is on statin therapy plan is to resume once patient is of the vent 12. GERD ? Patient was started on Protonix IV for GI prophylaxis 13. Essential hypertension ? Patient blood pressure remained stable held off her antihypertensives 14. DVT prophylaxis Subcu heparin Time spent in the patient's overall evaluation,decision-making process, review of diagnostic data, adjustment of management, discussion with other providers, nursing nursing and ancillary staff involved in patient's care documentation, 40 Minutes Charges/Coding Visit Charges Inpatient E&M: 34241 Subs Hosp L2
[2024-08-11] MEDS: Pantoprazole Sodium 40 MG in 0.9% Normal Saline (100mL MB+) 100 ML 330 MG IV ×2 (09:53→20:24)
[2024-08-11] MEDS: Chlorhexidine 15 ML PO ×2 (09:56→20:26)
[2024-08-11] MEDS: Insulin Glargine-YFGN 100 UNIT/ML Pen 10 UNIT SC (09:57)
[2024-08-11] MEDS: Erythromycin Base 1 OPTH.TUBE 1 APPLIC LEFT EYE ×2 (09:57→20:25)
[2024-08-11] MEDS: Heparin Injection (Vial) 5,000 UNIT/ML VIAL 5000 UNIT SC ×2 (09:57→20:26)
[2024-08-11] MEDS: Vital AF 1.2 Cal Liquid 1,000 ML 50 ML GT (10:58)
[2024-08-11] MEDS: Insulin Glargine-YFGN 100 UNIT/ML Pen 20 UNIT SC (11:10)
[2024-08-11 11:32] LABS: Bedside Glucose 344 mg/dL (74-106)
--- NOTE | 2024-08-11 15:32 | PN.RENAL_ITS ---
Subjective Subjective Follow-up on acute kidney injury on CKD 4. Patient remains on ventilator, orally intubated, hemodynamically stable. FiO2 21%, PEEP of 5. Objective Data Objective Data Vital Signs: Vital Signs Temp Pulse Resp BP Pulse Ox O2 Del Method O2 Flow Rate 100.4 F H 79 16 131/54 H 96 Mechanical Ventilator 15 08/11/24 12:00 08/11/24 15:00 08/11/24 15:00 08/11/24 15:00 08/11/24 15:00 08/11/24 15:00 08/08/24 10:09 FiO2 21 08/11/24 15:00 Oxygen Flow Rate (L/min) 15 Oxygen Delivery Method Mechanical Ventilator Weight: 83.4 kg Body Mass Index (BMI) 34.7 Intake & Output: Intake and Output for Last 24 Hours 08/09/24 08/10/24 08/11/24 23:59 23:59 23:59 Intake Total 4062.13 / 4062.13 2367.83 / 2507.83 2698.17 / 2698.17 Output Total 2450 / 2450 2625 / 2950 1665 / 1665 Balance 1612.13 / 1612.13 -257.17 / -442.17 1033.17 / 1033.17 Lab / Micro Data Attestation: I reviewed the patient's lab results. 08/11/24 03:50 08/11/24 03:50 Labs: Laboratory Results - last 24 hr 08/10/24 17:14: POC Glucose 313 H 08/11/24 00:09: POC Glucose 327 H 08/11/24 03:50: WBC 9.4, RBC 3.52 L, Hgb 9.9 L, Hct 31.5 L, MCV 89.5, MCH 28.1, MCHC 31.4 L, RDW Std Deviation 45.5 H, RDW Coeff of Steven 14.1, Plt Count 221, MPV 10.2, Immature Gran % (Auto) 4.200 H, Neut % (Auto) 74.2 H, Lymph % (Auto) 10.5 L, [place] % (Auto) 9.2, Eos % (Auto) 1.6, Baso % (Auto) 0.3, Absolute Neuts (auto) 7.0, Absolute Lymphs (auto) 0.99, Nucleated RBC % 0.2, Sodium 144, Potassium 3.4 L, Chloride 114 H, Carbon Dioxide 21.0, Anion Gap 9, BUN 49 H, Creatinine 1.92 H , Estim Creat Clear Calc 27.47, Est GFR (MDRD) Af Amer 33 L, Est GFR (MDRD) Non- Af 28 L, BUN/Creatinine Ratio 25.5 H, Glucose 407 H, Calcium 8.1 L, Total Bilirubin 0.40, AST 28, ALT 46, Alkaline Phosphatase 131 H, Total Creatine Kinase 126, Total Protein 5.7 L, Albumin 1.9 L, Globulin 3.8, Albumin/Globulin Ratio 0.5 L 08/11/24 05:39: POC Glucose 380 H 08/11/24 11:08: POC Glucose 344 H Micro: Microbiology 08/08/24 11:06 Blood Culture (Wb) - Right Forearm Bacteria Detection (PCR) - Final Staphylococcus epidermidis mecA Resistance Marker 08/08/24 11:06 Blood Culture (Wb) - Right Forearm Blood Culture - Final Staphylococcus epidermidis 08/08/24 10:27 Sputum, Induced/Lukens Gram Stain - Final 08/08/24 10:27 Sputum, Induced/Lukens Respiratory Culture - Final Citrobacter braakii 08/08/24 10:35 Blood Culture (Wb) - Right Forearm Blood Culture - Final Staphylococcus epidermidis 08/08/24 10:20 Urine Catheter - Alas Urine Culture - Final Mixed Gram Positive Organisms 08/08/24 14:36 Mucosa - Nasopharyngeal Respiratory Panel (PCR) - Final 08/08/24 14:36 Mucosa - Nasopharyngeal SARS-CoV-2, Influenza & RSV (PCR) - Final 08/08/24 14:25 Wound - Left Foot Skin and Soft Tissue MRSA/MSSA (PCR - Final 08/08/24 14:18 Mucosa - Nose Coronavirus COVID-19 PCR - Final 08/08/24 14:25 Urine Catheter - Alas Streptococcus pneumoniae Antigen (M - Final 08/08/24 14:25 Urine Catheter - Alas Legionella Antigen - Final Radiography Diagnostic Testing: Radiology Impression Brain MRI 08/10/24 10:19 IMPRESSION: Findings which are most consistent with 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 Incidental finding of diffuse pansinusitis and bilateral mastoid sinus disease likely chronic Electronically Signed: Wilfrido Xavier MD at 16:21 EST , Physical Exam Const General Appearance: patient mechanically ventilated HEENT normocephalic Head and Scalp: atraumatic Neck no lymphadenopathy Resp clear to auscultation bilaterally Cardio regular rate GI non-distended Auscultation: normoactive bowel sounds Bladder / Kidney Exam: catheter in place Extremity General Extremity: edema bilateral Skin no rashes or lesions noted Neuro Sensorium / Orientation: sedated on vent Assessment & Plan Assessment/Plan (1) BENJAMIN (acute kidney injury): PLAN: Patient has underlying CKD 4, baseline creatinine around 2. Over the last several days her creatinine has improved and now stabilized in the range 1.8- 2.0. Her electrolytes are fine and she has no significant acidosis. She is somewhat fluid overloaded on exam based on the lower extremity and dependent back edema, as well as upper extremity edema, but her oxygen requirements are minimal. If she needs to be diuresed I do not think that is any problem with her kidney function, as long as her kidney function gets monitored on a regular basis.
--- NOTE | 2024-08-11 17:16 | NEURO.EEG ---
EEG Results Procedure Details EEG Procedure Details: Inpatient routine EEG performed at [facility]: Patient: Ragini Obando Date of : 1955 Sex: Female Age: 68 years old Study start time: 08/10/2024 10:32 AM End Time: 08/10/2024 10:53 AM History: Altered mental status. Patient admitted with multiple medical conditions and respiratory failure requiring intubation Indication: Rule out seizures Technical Description: This is a 18-channel digital EEG recording with time-locked video and single-channel electrocardiogram. Electrodes are placed according to the 10 to 20 International System. Additional T1 and T2 electrodes were placed. The patient was monitored continuously by EEG technicians by video and EEG recording was reviewed intermittently with annotations. Portions of this record are reviewed using bandpass filters of 1 to 70 Hz and sensitivity of 7mV/mm. EEG DESCRIPTION Background: This recording was obtained during a sleep like state on sedation, and is compromised of generalized continuous slowing of delta activity superimposed by alpha frequencies. Activation Procedures: Photic stimulation was performed, with no abnormal activity triggered by this procedure. Sporadic Epileptiform Discharges: none Focal slow activity: none Rhythmic or Periodic activity: none Seizures: none Patient Events: none EEG DIAGNOSIS: Encephalopathy CLINICAL INTERPRETATION This routine EEG is consistent with severe diffuse encephalopathy. No epileptiform discharges or lateralizing sign were seen. EEG performed by: JEANA Damon JEANA Damon M.D. Neurology
[2024-08-11 19:13] LABS: Bedside Glucose 360 mg/dL (74-106)
[2024-08-12] VITALS (34 sets, daily range): BP systolic 120–164; BP diastolic 56–85; PULSE 71–91; RESP 15–24; TEMP 28.3–38.2; O2SAT 94–98; BMI 34.3
[2024-08-12] MEDS: Insulin Lispro 100 UNIT/ML INSULN.PEN SC ×4 (00:30→17:52)
[2024-08-12 00:51] LABS: Bedside Glucose 361 mg/dL (74-106)
[2024-08-12] MEDS: Vancomycin IV 1,000 MG/200 ML BAG 200 MG IV (00:56)
[2024-08-12] MEDS: CHLORHEXIDINE GLUC 2% CLOTH 1 EACH TOWELETTE TOPICAL (02:18)
[2024-08-12] MEDS: Nystatin Powder 15gm Bottle 1 APPLIC TOPICAL ×3 (06:06→21:41)
[2024-08-12] MEDS: Piperacil/Tazobactam 3.375 GM in 0.9% Normal Saline (50mL MB+) 50 ML IV ×3 (06:07→21:47)
[2024-08-12 06:23] LABS: Absolute Lymphocyte Count 1.02 X10^3/uL (0.83-4.51); Absolute Neutrophil Count 7.1 X10^3/uL (2.0-7.7); Basophil# 0.04 X10^3/uL; Basophil% 0.4 % (0-1); Eosinophil# 0.18 X10^3/uL; Eosinophils% 1.9 % (0-5); Hematocrit 30.6 % (37-47); Hemoglobin 9.8 g/dL (12.0-15.0); Lymphocyte # 1.02 X10^3/ul (0.83-4.51); Lymphocyte % 10.5 % (19-41); Mean Corpuscular Hgb 28.3 pg (27.0-32.0); Mean Corpuscular Volume 88.4 fL (81-99); Mean Platelet Vol. 10.4 fl (6.2-12.0); Monocyte# 0.88 X10^3/uL; Monocyte% 9.1 % (0-10); NRBC Flagged by Analyzer 0 % (0-5); Neutrophil # 7.12 X10^3/uL (2.7-7.7); Neutrophil % 73.6 % (47-70); Platelet Count 199 K/mm3 (150-450); RBC Distribution Width CV 13.9 % (11.6-14.6); RBC Distribution Width SD 44.9 fl (35.1-43.9); Red Blood Count 3.46 M/mm3 (4.2-5.4); White Blood Count 9.7 K/mm3 (4.4-11.0)
[2024-08-12 06:35] LABS: Bedside Glucose 364 mg/dL (74-106)
[2024-08-12 06:41] LABS: ALB/GLOB Ratio 0.5 RATIO (0.9-2.4); AST(SGOT) 57 U/L (15-37); Alanine Aminotransfer ALT/SGPT 70 U/L (13-56); Albumin, Serum 1.9 g/dL (3.2-5.0); Alkaline Phosphatase 140 U/L (45-117); Anion Gap 7 (5-15); BUN 46 mg/dL (7-18); BUN/Creat Ratio 24.1 RATIO (10-20); CPK Total, Creatine Kinase 114 U/L (26-192); Calcium,Total 7.8 mg/dL (8.5-10.1); Chloride 113 mmol/L (98-107); Creatinine, Serum 1.91 mg/dL (0.55-1.02); EST Glomerular Filtration Rate 28 mL/min (>60); Est Glom Filt Rate - Afr Amer 34 mL/min (>60); Estimated Creatinine Clearance 27.45 ml/min; Globulin 3.7 g/dL (2.2-4.2); Glucose 400 mg/dL (74-106); Potassium 3.3 mmol/L (3.5-5.1); Protein, Total 5.6 g/dL (6.4-8.2); Sodium Level 143 mmol/L (136-145)
--- NOTE | 2024-08-12 07:10 | PN.HOSP_ITS ---
Reason for Visit Reason for Visit: Diagnoses Type 2 diabetes mellitus with hyperosmolarity without nonketotic hyperglycemic- hyperosmolar coma (NKHHC) (08/08/24) Acidosis, unspecified (08/08/24) Pneumonitis due to inhalation of food and vomit (08/08/24) Acute respiratory failure, unspecified whether with hypoxia or hypercapnia (08/08/24) Rhabdomyolysis (08/08/24) Acute kidney failure, unspecified (08/08/24) Altered mental status, unspecified (08/08/24) Subjective Subjective Patient seen remains on the vent still unresponsive. EEG obtained the day prior demonstrated severe diffuse encephalopathy no seizures. Objective Data Objective Data Vital Signs: Vital Signs Temp Pulse Resp BP Pulse Ox O2 Del Method O2 Flow Rate 100.1 F H 82 16 141/62 H 98 Mechanical Ventilator 15 08/12/24 07:00 08/12/24 07:02 08/12/24 07:02 08/12/24 07:00 08/12/24 07:02 08/12/24 07:00 08/08/24 10:09 FiO2 21 08/12/24 07:02 Oxygen Flow Rate (L/min) 15 Oxygen Delivery Method Mechanical Ventilator Weight: 82.5 kg Body Mass Index (BMI) 34.3 Intake & Output: Intake and Output for Last 24 Hours 08/10/24 08/11/24 08/12/24 23:59 23:59 23:59 Intake Total 2367.83 / 2507.83 3058.17 / 3158.17 450 / 450 Output Total 2625 / 2950 2605 / 2830 750 / 750 Balance -257.17 / -442.17 453.17 / 328.17 -300 / -300 Lab / Micro Data 08/12/24 06:10 08/12/24 06:10 Labs: Laboratory Results - last 24 hr 08/11/24 11:08: POC Glucose 344 H 08/11/24 17:34: POC Glucose 360 H 08/12/24 00:29: POC Glucose 361 H 08/12/24 06:10: WBC 9.7, RBC 3.46 L, Hgb 9.8 L, Hct 30.6 L, MCV 88.4, MCH 28.3, MCHC 32.0, RDW Std Deviation 44.9 H, RDW Coeff of Steven 13.9, Plt Count 199, MPV 10.4, Immature Gran % (Auto) 4.500 H, Neut % (Auto) 73.6 H, Lymph % (Auto) 10.5 L, [place] % (Auto) 9.1, Eos % (Auto) 1.9, Baso % (Auto) 0.4, Absolute Neuts (auto) 7.1, Absolute Lymphs (auto) 1.02, Nucleated RBC % 0, Sodium 143, Potassium 3.3 L , Chloride 113 H, Carbon Dioxide 23.0, Anion Gap 7, BUN 46 H, Creatinine 1.91 H, Estim Creat Clear Calc 27.45, Est GFR (MDRD) Af Amer 34 L, Est GFR (MDRD) Non-Af 28 L, BUN/Creatinine Ratio 24.1 H, Glucose 400 H, Calcium 7.8 L, Total Bilirubin 0.50, AST 57 H, ALT 70 H, Alkaline Phosphatase 140 H, Total Creatine Kinase 114, Total Protein 5.6 L, Albumin 1.9 L, Globulin 3.7, Albumin/Globulin Ratio 0.5 L 08/12/24 06:13: POC Glucose 364 H Micro: Microbiology 08/08/24 11:06 Blood Culture (Wb) - Right Forearm Bacteria Detection (PCR) - Final Staphylococcus epidermidis mecA Resistance Marker 08/08/24 11:06 Blood Culture (Wb) - Right Forearm Blood Culture - Final Staphylococcus epidermidis 08/08/24 10:27 Sputum, Induced/Lukens Gram Stain - Final 08/08/24 10:27 Sputum, Induced/Lukens Respiratory Culture - Final Citrobacter braakii 08/08/24 10:35 Blood Culture (Wb) - Right Forearm Blood Culture - Final Staphylococcus epidermidis 08/08/24 10:20 Urine Catheter - Alas Urine Culture - Final Mixed Gram Positive Organisms 08/08/24 14:36 Mucosa - Nasopharyngeal Respiratory Panel (PCR) - Final 08/08/24 14:36 Mucosa - Nasopharyngeal SARS-CoV-2, Influenza & RSV (PCR) - Final 08/08/24 14:25 Wound - Left Foot Skin and Soft Tissue MRSA/MSSA (PCR - Final 08/08/24 14:18 Mucosa - Nose Coronavirus COVID-19 PCR - Final 08/08/24 14:25 Urine Catheter - Alas Streptococcus pneumoniae Antigen (M - Final 12/02/24 14:25 Urine Catheter - Alas Legionella Antigen - Final Physical Exam Narrative GENERAL: Patient on the vent HEENT: ET tube in place EYES; erythema involving the left conjunctiva with swelling of the eyelid NECK; supple, normal thyroid, RESPIRATORY: Diminished to auscultation CARDIOVASCULAR: Regular S1 S2, GI: soft, normoactive bowel sounds, : No Renal angle tenderness; EXTREMITIES: Erythema and some blistering involving both upper and lower extremities MUSCULOSKELETAL: no muscle wasting NEURO: Patient is on the vent SKIN: PSYCH; unable to assess given patient presented to Assessment & Plan Assessment/Plan (1) Acute alteration in mental status: (2) Hyperosmolar hyperglycemic state (HHS): (3) Rhabdomyolysis: (4) BENJAMIN (acute kidney injury): (5) Acute respiratory failure: PLAN: Plan Patient is a 68-year-old female admitted with altered mental status. She was apparently found unresponsive in her room 1. Acute metabolic encephalopathy ? Multifactorial including hyperosmolar nonketotic state, severe sepsis, acute kidney injury with metabolic acidosis. Patient was intubated admitted to the intensive care unit with treatment of the underlying etiology. CT of the head obtained demonstrated chronic involutional changes of the brain and partial opacification of maxillary and ethmoid sinus. Patient will need to undergo subsequent evaluation with MRI when medically stable ? 08/09/2024; patient is currently off sedation however still remains unresponsive [facility] remains [facility] the vent. [facility] was made for patient to undergo EEG. Sputum cultures so far positive for gram-negative rods and blood cultures obtained on admission positive staph epi ? 08/11/2024;Patient seen no change in clinical condition. MRI demonstrated pansinusitis no acute CVA. EEG was performed the day prior results pending ? 08/12/2024 Patient seen remains on the vent still unresponsive. EEG obtained the day prior demonstrated severe diffuse encephalopathy no seizures. 2. Acute hypoxic respiratory failure ? Patient was found to have left lower lobe infiltrate consistent with pneumonia. Patient was intubated in the emergency department. Admitted to the intensive care unit with consultation placed to neurobiologist for vent management ? 08/09/2024; patient remains on the vent 3. Severe sepsis ? Suspected to be secondary to aspiration pneumonia checks x-ray demonstrated right lower lobe infiltrate. Patient was started on IV fluids per protocol, broad-spectrum antibiotic therapy with cefepime, ciprofloxacin and vancomycin blood and sputum cultures sent. Also did send for viral respiratory final and COVID assay. Response to therapy being monitored with serial lactic acid level -08/09/2024 patient viral respiratory assay came back negative 4. Acute rhabdomyolysis ? Following prolonged period of immobilization of undetermined length. Patient started on fluids with subsequent monitoring of CPK levels ordered ? 08/09/2024 did continue patient IV fluid with subsequent monitoring of CPK level 5. Hyperosmolar nonketotic state ? Patient admitted to the intensive care unit started on fluids as well as parenteral insulin with every 4 BMPs ordered ? 08/09/2024; patient blood glucose levels 6. Diabetes mellitus type 2 Patient is on long-acting insulin in addition to scheduled short acting insulin. Had recently been started on tirzepatide to help improve her hemoglobin A1c. Her sister. Patient presented with hyperosmolar nonketotic state as stated above and treatment as described above 7. Acute kidney injury -superimposed on chronic kidney disease stage IV this is secondary to suspected ATN from patient rhabdo as well as severe sepsis ? 08/09/2024 consult was placed to nephrology the day prior 8. Metabolic acidosis -secondary to patient BENJAMIN and sepsis will continue with monitoring as documented. No indication for bicarb at this point 9. Acute transaminitis ? Suspected to be secondary to volume depletion patient receiving IV fluids 10. Class I obesity with BMI of 33.8 ? Patient had recently been started on tirzepatide to help with her weight as well as hemoglobin A1c 11. Dyslipidemia ? Patient is on statin therapy plan is to resume once patient is of the vent 12. GERD ? Patient was started on Protonix IV for GI prophylaxis 13. Essential hypertension ? Patient blood pressure remained stable held off her antihypertensives 14. DVT prophylaxis Subcu heparin Time spent in the patient's overall evaluation,decision-making process, review of diagnostic data, adjustment of management, discussion with other providers, nursing nursing and ancillary staff involved in patient's care documentation, 40 Minutes Charges/Coding Visit Charges Inpatient E&M: 79369 Subs Hosp L2
--- NOTE | 2024-08-12 08:18 | PCM.PN.INT ---
Assessment & Plan Assessment/Plan (1) Acute alteration in mental status: (2) Metabolic acidosis: (3) Hyperosmolar hyperglycemic state (HHS): (4) Aspiration pneumonia: (5) BENJAMIN (acute kidney injury): PLAN: Plan RECOMMENDATIONS: 1. Continue assist-control mode of mechanical ventilation. 2. Continue to hold all sedating medications. 3. Increase basal insulin and continue sliding scale coverage. 4. Continue tube feeding and free water flushes. 5. Continue antimicrobials. 6. Neurology to follow-up on the patient today. 7. Continue appropriate ICU prophylaxis. IMPRESSIONS: 1. Acute hypoxemic respiratory failure The patient presented to the emergency department after being found down unresponsive of unclear duration. She was emergently intubated as a consequence of the aforementioned. There are clinical concerns for underlying aspiration pneumonia. Therefore, the patient has been placed on appropriate antimicrobials. The patient will be continued on assist-control mode of mechanical ventilation, with a goal to wean FiO2 and PEEP as tolerated to maintain saturations at or above 90%. The patient's underlying mental status continues to be a barrier to successful liberation from invasive mechanical ventilatory support. 2. Acute metabolic encephalopathy The patient presented with a number of metabolic derangements and concern for HHS in the setting of poorly controlled diabetes mellitus. Initial CT head was unremarkable. TSH and ammonia were within normal limits. 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 EEG was consistent with severe diffuse encephalopathy without any epileptiform discharges. Continue to hold all sedating medications. Recommend neurology follow-up. 3. Hyperosmolar hyperglycemic state Resolved. The patient has a known history of poorly controlled diabetes mellitus. Continue basal and continue sliding scale insulin coverage. 4. Acute kidney injury Improving. Most likely prerenal in the setting of HHS, with concern for general hypovolemia after being found down. Agree with judicious IV fluid resuscitation. CK level, although elevated, is not consistent with rhabdomyolysis. Continue to monitor urine output for now. There is no urgent need for renal replacement therapy at the present time. 5. History of poorly controlled diabetes mellitus/obesity/GERD/neuropathy/hypertension Complicates care, management, recovery and prognosis. Continue to hold the remainder of the patient's home medications. Continue tube feeding and free water flushes as tolerated. TIME: 32 minutes of critical care time, independent of procedures, was spent addressing the patient's acute hypoxemic respiratory failure, acute metabolic encephalopathy, HHS, acute kidney injury, review of all data and collaboration with the care team. Subjective Subjective The patient was seen and examined at the bedside this morning. Events from the last 24 hours have been reviewed. The patient currently has a low-grade fever but remains otherwise hemodynamically stable on assist-control mode mechanical ventilation with an FiO2 requirement of 21% and PEEP of 5. While the patient is moving her extremities, she is not currently following any commands. EEG and MRI results were noted. White blood cell count remains normal. Hemoglobin and platelet count are stable. Arterial blood gas this morning demonstrated a pH of 7.45 with a pCO2 of 32 and pO2 of 74. BUN and creatinine are improved at 46 and 1.91, respectively. Glucose remains elevated. Therefore, the patient's basal insulin was again increased this morning. Objective Data Objective Data The patient's most recent lab work, culture data and imaging studies have all been personally reviewed. 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 Blood culture dated August 08 was positive for Staph epidermidis. Vital Signs: Vital Signs Temp Pulse Resp BP Pulse Ox O2 Del Method O2 Flow Rate 100.1 F H 82 16 141/62 H 98 Mechanical Ventilator 15 08/12/24 07:00 08/12/24 07:02 08/12/24 07:02 08/12/24 07:00 08/12/24 07:02 08/12/24 07:00 08/08/24 10:09 FiO2 21 08/12/24 07:02 Oxygen Flow Rate (L/min) 15 Oxygen Delivery Method Mechanical Ventilator Weight: 181 lb 14.102 oz Body Mass Index (BMI) 34.3 Intake & Output: Intake and Output for Last 24 Hours 08/10/24 08/11/24 08/12/24 23:59 23:59 23:59 Intake Total 2367.83 / 2507.83 3058.17 / 3158.17 450 / 450 Output Total 2625 / 2950 2605 / 2830 750 / 750 Balance -257.17 / -442.17 453.17 / 328.17 -300 / -300 Lab / Micro Data Attestation: I reviewed the patient's lab results. 08/12/24 06:10 08/12/24 06:10 Labs: Laboratory Results - last 24 hr 08/11/24 11:08: POC Glucose 344 H 08/11/24 17:34: POC Glucose 360 H 08/12/24 00:29: POC Glucose 361 H 08/12/24 06:10: WBC 9.7, RBC 3.46 L, Hgb 9.8 L, Hct 30.6 L, MCV 88.4, MCH 28.3, MCHC 32.0, RDW Std Deviation 44.9 H, RDW Coeff of Steven 13.9, Plt Count 199, MPV 10.4, Immature Gran % (Auto) 4.500 H, Neut % (Auto) 73.6 H, Lymph % (Auto) 10.5 L, [place] % (Auto) 9.1, Eos % (Auto) 1.9, Baso % (Auto) 0.4, Absolute Neuts (auto) 7.1, Absolute Lymphs (auto) 1.02, Nucleated RBC % 0, Sodium 143, Potassium 3.3 L, Chloride 113 H, Carbon Dioxide 23.0, Anion Gap 7, BUN 46 H, Creatinine 1.91 H, Estim Creat Clear Calc 27.45, Est GFR (MDRD) Af Amer 34 L, Est GFR (MDRD) Non-Af 28 L, BUN/Creatinine Ratio 24.1 H, Glucose 400 H, Calcium 7.8 L, Total Bilirubin 0.50, AST 57 H, ALT 70 H, Alkaline Phosphatase 140 H, Total Creatine Kinase 114, Total Protein 5.6 L, Albumin 1.9 L, Globulin 3.7, Albumin/Globulin Ratio 0.5 L 08/12/24 06:13: POC Glucose 364 H Micro: Microbiology 08/08/24 11:06 Blood Culture (Wb) - Right Forearm Bacteria Detection (PCR) - Final Staphylococcus epidermidis mecA Resistance Marker 08/08/24 11:06 Blood Culture (Wb) - Right Forearm Blood Culture - Final Staphylococcus epidermidis 08/08/24 10:27 Sputum, Induced/Lukens Gram Stain - Final 08/08/24 10:27 Sputum, Induced/Lukens Respiratory Culture - Final Citrobacter braakii 08/08/24 10:35 Blood Culture (Wb) - Right Forearm Blood Culture - Final Staphylococcus epidermidis 08/08/24 10:20 Urine Catheter - Alas Urine Culture - Final Mixed Gram Positive Organisms 08/08/24 14:36 Mucosa - Nasopharyngeal Respiratory Panel (PCR) - Final 08/08/24 14:36 Mucosa - Nasopharyngeal SARS-CoV-2, Influenza & RSV (PCR) - Final 08/08/24 14:25 Wound - Left Foot Skin and Soft Tissue MRSA/MSSA (PCR - Final 08/08/24 14:18 Mucosa - Nose Coronavirus COVID-19 PCR - Final 08/08/24 14:25 Urine Catheter - Alas Streptococcus pneumoniae Antigen (M - Final 08/08/24 14:25 Urine Catheter - Alas Legionella Antigen - Final ABG Data ABG results: ABG 08/09/24 09:29 Specimen Type ART Sample Site L Radial pH 7.35 Bicarbonate Actual 16.3 L Total CO2 17 Base Excess -9 L O2 Saturation 96 O2 % 50.0 ABG pCO2 29.3 L ABG pO2 83 Slim Test Positive Respiration Rate 16 O2 Delivery Device Adult Vent Vent Mode AC Tidal Volume 450.0 POC PEEP 5 Radiography Diagnostic Testing: Radiology Impression Brain MRI 08/10/24 10:19 IMPRESSION: Findings which are most consistent with 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 Chronically ill in appearance. General Appearance: patient mechanically ventilated HEENT normocephalic and head/scalp atraumatic Mouth: endotracheal tube in place and OG tube in place Teeth and Gingiva: poor dentition Eyes Eyes Narrative: Sluggish pupillary reflex bilaterally. Neck supple General: trachea midline and CVC in place Chest inspection of chest normal Resp Auscultation: diminished lung sounds; Negative for rales, rhonchi or wheezes Cardio regular rate and regular rhythm GI normal to inspection, nondistended, normoactive bowel sounds Extremity no clubbing, cyanosis or edema Skin Skin Narrative: Scattered abrasions over face and trunk Neuro Neuro Narrative: Currently moving extremities spontaneously, but will not follow any commands. Psych Mood & Affect: flat affect Charges/Coding Procedures Hospitalists Procedures: 73547 Critical Care 1st Hr
[2024-08-12] MEDS: Potassium Chloride 10mEq/100mL 10 MEQ/100 ML IV.SOLN. 100 MEQ IV BOLUS ×4 (08:27→13:10)
[2024-08-12] MEDS: Vital AF 1.2 Cal Liquid 1,000 ML 50 ML GT (08:42)
[2024-08-12] MEDS: Chlorhexidine 15 ML PO ×2 (08:42→21:40)
[2024-08-12 08:51] LABS: Allen Test Positive; Base Excess -2 mmol/L (-2 to +2); Bicarbonate 22.1 mmol/L (22-26); Blood Gas Specimen Type ART; Mode AC; O2 Delivery Device Adult Vent; PEEP 5; PO2 74 mmHG (75-100); RR 16; SITE L Radial; SO2 96 % (95-99); Total Carbon Dioxide 23 mmol/L; pCO2 31.7 mmHg (35-45); pH 7.45 (7.35-7.45)
[2024-08-12] MEDS: Erythromycin Base 1 OPTH.TUBE 1 APPLIC LEFT EYE ×2 (11:07→21:41)
[2024-08-12] MEDS: Heparin Injection (Vial) 5,000 UNIT/ML VIAL 5000 UNIT SC ×2 (11:08→21:40)
[2024-08-12] MEDS: Insulin Glargine-YFGN 100 UNIT/ML Pen 30 UNIT SC (11:08)
[2024-08-12] MEDS: Pantoprazole Sodium 40 MG in 0.9% Normal Saline (100mL MB+) 100 ML 330 MG IV ×2 (11:15→21:34)
--- NOTE | 2024-08-12 11:44 | CASEMGMT ---
Social Work- SW attempted numerous times to meet with family; not in room. SW remains available to follow. BING Lawrence
[2024-08-12 12:24] LABS: Bedside Glucose 351 mg/dL (74-106)
--- NOTE | 2024-08-12 14:30 | PN.RENAL_ITS ---
Subjective Subjective Follow-up on BENJAMIN on CKD 4. Remains in ICU, vented. Blood pressure stable, no pressors. Fluid balance is 0. Produces about 2000 cc of urine. Has some edema. Objective Data Objective Data Vital Signs: Vital Signs Temp Pulse Resp BP Pulse Ox O2 Del Method O2 Flow Rate 100.7 F H 77 20 H 141/75 H 95 Mechanical Ventilator 15 08/12/24 12:00 08/12/24 14:00 08/12/24 14:00 08/12/24 14:00 08/12/24 14:00 08/12/24 14:00 08/08/24 10:09 FiO2 21 08/12/24 14:00 Oxygen Flow Rate (L/min) 15 Oxygen Delivery Method Mechanical Ventilator Weight: 82.5 kg Body Mass Index (BMI) 34.3 Intake & Output: Intake and Output for Last 24 Hours 08/10/24 08/11/24 08/12/24 23:59 23:59 23:59 Intake Total 2367.83 / 2507.83 3058.17 / 3158.17 2110 / 2110 Output Total 2625 / 2950 2605 / 2830 1150 / 1150 Balance -257.17 / -442.17 453.17 / 328.17 960 / 960 Lab / Micro Data Attestation: I reviewed the patient's lab results. 08/12/24 06:10 08/12/24 06:10 Labs: Laboratory Results - last 24 hr 08/11/24 17:34: POC Glucose 360 H 08/12/24 00:29: POC Glucose 361 H 08/12/24 06:10: WBC 9.7, RBC 3.46 L, Hgb 9.8 L, Hct 30.6 L, MCV 88.4, MCH 28.3, MCHC 32.0, RDW Std Deviation 44.9 H, RDW Coeff of Steven 13.9, Plt Count 199, MPV 10.4, Immature Gran % (Auto) 4.500 H, Neut % (Auto) 73.6 H, Lymph % (Auto) 10.5 L, [place] % (Auto) 9.1, Eos % (Auto) 1.9, Baso % (Auto) 0.4, Absolute Neuts (auto) 7.1, Absolute Lymphs (auto) 1.02, Nucleated RBC % 0, Sodium 143, Potassium 3.3 L , Chloride 113 H, Carbon Dioxide 23.0, Anion Gap 7, BUN 46 H, Creatinine 1.91 H, Estim Creat Clear Calc 27.45, Est GFR (MDRD) Af Amer 34 L, Est GFR (MDRD) Non-Af 28 L, BUN/Creatinine Ratio 24.1 H, Glucose 400 H, Calcium 7.8 L, Total Bilirubin 0.50, AST 57 H, ALT 70 H, Alkaline Phosphatase 140 H, Total Creatine Kinase 114, Total Protein 5.6 L, Albumin 1.9 L, Globulin 3.7, Albumin/Globulin Ratio 0.5 L 08/12/24 06:13: POC Glucose 364 H 08/12/24 11:58: POC Glucose 351 H Micro: Microbiology 08/08/24 11:06 Blood Culture (Wb) - Right Forearm Bacteria Detection (PCR) - Final Staphylococcus epidermidis mecA Resistance Marker 08/08/24 11:06 Blood Culture (Wb) - Right Forearm Blood Culture - Final Staphylococcus epidermidis 08/08/24 10:27 Sputum, Induced/Lukens Gram Stain - Final 08/08/24 10:27 Sputum, Induced/Lukens Respiratory Culture - Final Citrobacter braakii 08/08/24 10:35 Blood Culture (Wb) - Right Forearm Blood Culture - Final Staphylococcus epidermidis 08/08/24 10:20 Urine Catheter - Alas Urine Culture - Final Mixed Gram Positive Organisms 08/08/24 14:36 Mucosa - Nasopharyngeal Respiratory Panel (PCR) - Final 08/08/24 14:36 Mucosa - Nasopharyngeal SARS-CoV-2, Influenza & RSV (PCR) - Final 08/08/24 14:25 Wound - Left Foot Skin and Soft Tissue MRSA/MSSA (PCR - Final 08/08/24 14:18 Mucosa - Nose Coronavirus COVID-19 PCR - Final 08/08/24 14:25 Urine Catheter - Alas Streptococcus pneumoniae Antigen (M - Final 08/08/24 14:25 Urine Catheter - Alas Legionella Antigen - Final ABG Data ABG results: ABG 08/12/24 08:47 Specimen Type ART Sample Site L Radial pH 7.45 Bicarbonate Actual 22.1 Total CO2 23 Base Excess -2 O2 Saturation 96 O2 % 21.0 ABG pCO2 31.7 L ABG pO2 74 L Slim Test Positive Respiration Rate 16 O2 Delivery Device Adult Vent Vent Mode AC Tidal Volume 450.0 POC PEEP 5 Physical Exam Const General Appearance: patient mechanically ventilated HEENT normocephalic Neck no lymphadenopathy Resp Auscultation: rhonchi throughout Cardio regular rate GI Auscultation: normoactive bowel sounds Palpation: soft Extremity General Extremity: edema bilateral Neuro Sensorium / Orientation: sedated on vent Assessment & Plan Assessment/Plan (1) BENJAMIN (acute kidney injury): PLAN: Acute kidney injury on CKD 4, kidney function back to baseline. Urine output seems to be adequate, electrolytes are fine, no significant acidosis. She is fluid overloaded by exam and can be diuresed gently.
[2024-08-12 16:31] LABS: Bedside Glucose 289 mg/dL (74-106)
[2024-08-12] MEDS: Furosemide 20 MG/2 ML VIAL IV (17:55)
[2024-08-12] MEDS: 0.9% Saline Lock 10 ML Syringe IV ×2 (17:55→18:12)
[2024-08-12 18:30] LABS: Bedside Glucose 275 mg/dL (74-106)
--- NOTE | 2024-08-12 20:50 | RAD_ITS ---
INDICATION: Check OG Placement EXAMINATION/TECHNIQUE: X-RAY - XR Chest 1 View COMPARISON: Prior study dated: 08/09/2024 FINDINGS: LINES/DEVICES: Endotracheal tube terminates 5 cm above the yajaira. Enteric tube extends into the stomach. Right internal jugular central venous catheter terminates near the cavoatrial junction. LUNGS: The lungs are well expanded. No consolidation, edema or effusion. No pneumothorax. MEDIASTINUM AND CARDIOVASCULAR STRUCTURES: Cardiac silhouette not enlarged. Central airways and mediastinal contour are unremarkable. BONES AND SOFT TISSUES: No acute abnormality. RAD/Chest 1 View (Portable) IMPRESSION: Endotracheal tube terminates 5 cm above the yajaira. Enteric tube terminates in the stomach. No acute pulmonary finding. Electronically Signed: Bret Mason MD at 21:40 EST ,
[2024-08-13] VITALS (33 sets, daily range): BP systolic 104–167; BP diastolic 52–88; PULSE 66–95; RESP 15–20; TEMP 37.8–39.3; O2SAT 93–99; BMI 33.8
[2024-08-13] MEDS: Vancomycin Trough/Random Due 1 LAB MC (00:06)
--- NOTE | 2024-08-13 00:09 | PCM.RX.CS ---
Consult Antibiotic Management Pharmacy has been consulted to manage selected antibiotic: Vancomycin Type of Intervention Type of Consult: Follow-up Suspected Infection Suspected Infection: Sepsis Labs Labs: Sodium 143 mmol/L (136-145) 08/12/24 06:10 Potassium 3.3 mmol/L (3.5-5.1) L 08/12/24 06:10 Chloride 113 mmol/L (98-107) H 08/12/24 06:10 Carbon Dioxide 23.0 mmol/L (21.0-32.0) 08/12/24 06:10 Anion Gap 7 (5-15) 08/12/24 06:10 BUN 46 mg/dL (7-18) H 08/12/24 06:10 Creatinine 1.91 mg/dL (0.55-1.02) H 08/12/24 06:10 Est GFR (MDRD) Af Amer 34 mL/min (>60) L 08/12/24 06:10 Est GFR (MDRD) Non-Af 28 mL/min (>60) L 08/12/24 06:10 BUN/Creatinine Ratio 24.1 RATIO (10-20) H 08/12/24 06:10 Glucose 400 mg/dL (74-106) H 08/12/24 06:10 Vancomycin Trough 20.0 ug/mL (5.0-15.0) H 08/12/24 23:30 Random Vancomycin 15.6 ug/mL (0.0-15.0) H 08/10/24 05:16 Microbiology Microbiology: Microbiology 08/08/24 11:06 Blood Culture (Wb) - Right Forearm Bacteria Detection (PCR) - Final Staphylococcus epidermidis mecA Resistance Marker 08/08/24 11:06 Blood Culture (Wb) - Right Forearm Blood Culture - Final Staphylococcus epidermidis 08/08/24 10:27 Sputum, Induced/Lukens Gram Stain - Final 08/08/24 10:27 Sputum, Induced/Lukens Respiratory Culture - Final Citrobacter braakii 08/08/24 10:35 Blood Culture (Wb) - Right Forearm Blood Culture - Final Staphylococcus epidermidis 08/08/24 10:20 Urine Catheter - Alas Urine Culture - Final Mixed Gram Positive Organisms 08/08/24 14:36 Mucosa - Nasopharyngeal Respiratory Panel (PCR) - Final 08/08/24 14:36 Mucosa - Nasopharyngeal SARS-CoV-2, Influenza & RSV (PCR) - Final 08/08/24 14:25 Wound - Left Foot Skin and Soft Tissue MRSA/MSSA (PCR - Final 08/08/24 14:18 Mucosa - Nose Coronavirus COVID-19 PCR - Final 08/08/24 14:25 Urine Catheter - Alas Streptococcus pneumoniae Antigen (M - Final 08/08/24 14:25 Urine Catheter - Alas Legionella Antigen - Final Dosing Weight Weight used for dosin.5 kg Estimated Creatinine Clearance Estimated Creatinine Clearance: 27 Goal Trough Goal Trough: 15-20 mcg/mL Pharmacy Plan for Drug Dosing Pharmacy Plan for Drug Dosing: Vancomycin trough level of 20.0, drawn 10.5hrs post-dose, was within the target range of 15-20. Will continue dosing at 1000mg q24h, and will draw another trough in two days. Pharmacy Service will continue to monitor and adjust dosing as required. Follow-Up Labs Follow-Up Labs: Trough: Vancomycin Date/Time Labs Ordered Labs to be done on [date and time ordered]: 08/14/24 @2120
[2024-08-13] MEDS: Vancomycin IV 1,000 MG/200 ML BAG 200 MG IV (00:12)
[2024-08-13] MEDS: Insulin Lispro 100 UNIT/ML INSULN.PEN SC ×4 (00:13→17:09)
[2024-08-13 00:34] LABS: Bedside Glucose 223 mg/dL (74-106)
[2024-08-13 03:58] LABS: Absolute Lymphocyte Count 1.42 X10^3/uL (0.83-4.51); Absolute Neutrophil Count 8.5 X10^3/uL (2.0-7.7); Basophil# 0.05 X10^3/uL; Basophil% 0.4 % (0-1); Eosinophil# 0.19 X10^3/uL; Eosinophils% 1.7 % (0-5); Hematocrit 30.8 % (37-47); Hemoglobin 9.9 g/dL (12.0-15.0); Lymphocyte # 1.42 X10^3/ul (0.83-4.51); Lymphocyte % 12.5 % (19-41); Mean Corp Hgb Conc 32.1 g/dL (32-36); Mean Corpuscular Hgb 28.5 pg (27.0-32.0); Mean Corpuscular Volume 88.8 fL (81-99); Mean Platelet Vol. 10.4 fl (6.2-12.0); Monocyte# 0.91 X10^3/uL; NRBC Flagged by Analyzer 0 % (0-5); Neutrophil # 8.51 X10^3/uL (2.7-7.7); Neutrophil % 74.8 % (47-70); Platelet Count 205 K/mm3 (150-450); RBC Distribution Width CV 13.7 % (11.6-14.6); RBC Distribution Width SD 44.2 fl (35.1-43.9); Red Blood Count 3.47 M/mm3 (4.2-5.4); White Blood Count 11.4 K/mm3 (4.4-11.0)
[2024-08-13 04:25] LABS: ALB/GLOB Ratio 0.5 RATIO (0.9-2.4); AST(SGOT) 60 U/L (15-37); Alanine Aminotransfer ALT/SGPT 82 U/L (13-56); Albumin, Serum 1.9 g/dL (3.2-5.0); Alkaline Phosphatase 145 U/L (45-117); Anion Gap 8 (5-15); BUN 41 mg/dL (7-18); BUN/Creat Ratio 21.1 RATIO (10-20); CPK Total, Creatine Kinase 104 U/L (26-192); Calcium,Total 7.8 mg/dL (8.5-10.1); Chloride 112 mmol/L (98-107); Creatinine, Serum 1.94 mg/dL (0.55-1.02); EST Glomerular Filtration Rate 27 mL/min (>60); Est Glom Filt Rate - Afr Amer 33 mL/min (>60); Estimated Creatinine Clearance 27.02 ml/min; Globulin 3.8 g/dL (2.2-4.2); Glucose 312 mg/dL (74-106); Potassium 3.2 mmol/L (3.5-5.1); Protein, Total 5.7 g/dL (6.4-8.2); Sodium Level 144 mmol/L (136-145)
[2024-08-13] MEDS: Potassium Chloride Oral Soln 20 MEQ/15 ML UDC 60 MEQ GT (05:04)
[2024-08-13] MEDS: Nystatin Powder 15gm Bottle 1 APPLIC TOPICAL ×3 (05:05→22:26)
[2024-08-13] MEDS: Piperacil/Tazobactam 3.375 GM in 0.9% Normal Saline (50mL MB+) 50 ML IV ×3 (05:05→22:24)
[2024-08-13] MEDS: 0.9% Saline Lock 10 ML Syringe IV ×2 (05:08→17:12)
[2024-08-13 05:31] LABS: Bedside Glucose 245 mg/dL (74-106)
[2024-08-13] MEDS: Heparin Injection (Vial) 5,000 UNIT/ML VIAL 5000 UNIT SC ×2 (09:18→22:26)
[2024-08-13] MEDS: CHLORHEXIDINE GLUC 2% CLOTH 1 EACH TOWELETTE TOPICAL (09:18)
[2024-08-13] MEDS: Chlorhexidine 15 ML PO ×2 (09:18→22:28)
[2024-08-13] MEDS: Erythromycin Base 1 OPTH.TUBE 1 APPLIC LEFT EYE ×2 (09:18→22:25)
[2024-08-13] MEDS: Furosemide 20 MG/2 ML VIAL IV ×2 (09:19→17:09)
[2024-08-13] MEDS: Insulin Glargine-YFGN 100 UNIT/ML Pen 40 UNIT SC (09:19)
[2024-08-13] MEDS: Pantoprazole Sodium 40 MG in 0.9% Normal Saline (100mL MB+) 100 ML 330 MG IV ×2 (09:22→21:35)
[2024-08-13] MEDS: Vital AF 1.2 Cal Liquid 1,000 ML 50 ML GT (09:29)
[2024-08-13] MEDS: Acetaminophen 650 MG/20 ML UDC GT ×2 (11:18→17:27)
[2024-08-13] MEDS: Insulin Lispro 100 UNIT/ML INSULN.PEN 10 UNIT SC ×2 (11:24→17:09)
--- NOTE | 2024-08-13 11:35 | PN.HOSP_ITS ---
Reason for Visit Reason for Visit: Diagnoses Type 2 diabetes mellitus with hyperosmolarity without nonketotic hyperglycemic- hyperosmolar coma ([facility]) (08/08/24) Acidosis, unspecified (08/08/24) Pneumonitis due to inhalation of food and vomit (08/08/24) Acute respiratory failure, unspecified whether with hypoxia or hypercapnia (08/08/24) Rhabdomyolysis (08/08/24) Acute kidney failure, unspecified (08/08/24) Altered mental status, unspecified (08/08/24) Subjective Subjective Saw patient at bedside this morning. Patient remains intubated and not responding to commands. Objective Data Objective Data Vital Signs: Vital Signs Temp Pulse Resp BP Pulse Ox O2 Del Method O2 Flow Rate 100.9 F H 95 19 H 164/69 H 94 Mechanical Ventilator 15 08/13/24 08:00 08/13/24 10:58 08/13/24 10:58 08/13/24 08:00 08/13/24 10:58 08/13/24 08:36 08/08/24 10:09 FiO2 21 08/13/24 10:58 Oxygen Flow Rate (L/min) 15 Oxygen Delivery Method Mechanical Ventilator Weight: 81.3 kg Body Mass Index (BMI) 33.8 Intake & Output: Intake and Output for Last 24 Hours 08/11/24 08/12/24 08/13/24 23:59 23:59 23:59 Intake Total 3058.17 / 3158.17 2470 / 2470 1610 / 1610 Output Total 2605 / 2830 2650 / 2650 750 / 750 Balance 453.17 / 328.17 -180 / -180 860 / 860 Lab / Micro Data 08/13/24 03:48 08/13/24 03:48 Labs: Laboratory Results - last 24 hr 08/12/24 11:58: POC Glucose 351 H 08/12/24 16:09: POC Glucose 289 H 08/12/24 17:50: POC Glucose 275 H 08/12/24 23:30: Vancomycin Trough 20.0 H 08/13/24 00:11: POC Glucose 223 H 08/13/24 03:48: WBC 11.4 H, RBC 3.47 L, Hgb 9.9 L, Hct 30.8 L, MCV 88.8, MCH 28.5, MCHC 32.1, RDW Std Deviation 44.2 H, RDW Coeff of Steven 13.7, Plt Count 205, MPV 10.4, Immature Gran % (Auto) 2.600 H, Neut % (Auto) 74.8 H, Lymph % (Auto) 12.5 L, [place] % (Auto) 8.0, Eos % (Auto) 1.7, Baso % (Auto) 0.4, Absolute Neuts (auto) 8.5 H, Absolute Lymphs (auto) 1.42, Nucleated RBC % 0, Sodium 144, P otassium 3.2 L, Chloride 112 H, Carbon Dioxide 24.0, Anion Gap 8, BUN 41 H, C reatinine 1.94 H, Estim Creat Clear Calc 27.02, Est GFR (MDRD) Af Amer 33 L, Est GFR (MDRD) Non-Af 27 L, BUN/Creatinine Ratio 21.1 H, Glucose 312 H, Calcium 7.8 L, Total Bilirubin 0.50, AST 60 H, ALT 82 H, Alkaline Phosphatase 145 H, Total Creatine Kinase 104, Total Protein 5.7 L, Albumin 1.9 L, Globulin 3.8, A lbumin/Globulin Ratio 0.5 L 08/13/24 04:51: POC Glucose 245 H Micro: Microbiology 08/08/24 11:06 Blood Culture (Wb) - Right Forearm Bacteria Detection (PCR) - Final Staphylococcus epidermidis mecA Resistance Marker 08/08/24 11:06 Blood Culture (Wb) - Right Forearm Blood Culture - Final Staphylococcus epidermidis 08/08/24 10:27 Sputum, Induced/Lukens Gram Stain - Final 08/08/24 10:27 Sputum, Induced/Lukens Respiratory Culture - Final Citrobacter braakii 08/08/24 10:35 Blood Culture (Wb) - Right Forearm Blood Culture - Final Staphylococcus epidermidis 08/08/24 10:20 Urine Catheter - Alas Urine Culture - Final Mixed Gram Positive Organisms 08/08/24 14:36 Mucosa - Nasopharyngeal Respiratory Panel (PCR) - Final 08/08/24 14:36 Mucosa - Nasopharyngeal SARS-CoV-2, Influenza & RSV (PCR) - Final 08/08/24 14:25 Wound - Left Foot Skin and Soft Tissue MRSA/MSSA (PCR - Final 08/08/24 14:18 Mucosa - Nose Coronavirus COVID-19 PCR - Final 08/08/24 14:25 Urine Catheter - Alas Streptococcus pneumoniae Antigen (M - Final 08/08/24 14:25 Urine Catheter - Alas Legionella Antigen - Final Radiography Diagnostic Testing: Radiology Impression Chest X-Ray 08/12/24 20:50 IMPRESSION: Endotracheal tube terminates 5 cm above the yajaira. Enteric tube terminates in the stomach. No acute pulmonary finding. Electronically Signed: Bret Mason MD at 21:40 EST , Physical Exam Const Constitutional Narrative: Intubated and not following commands. Not on any sedation. HEENT normocephalic, head/scalp atraumatic and nasal mucous membranes and turbinates normal HEENT Narrative: ET tube in place. Eyes conjunctivae normal Neck supple Chest inspection of chest normal Resp normal air movement and clear to auscultation bilaterally Resp Narrative: On mechanical ventilation at low requirements. Good breath sounds bilaterally, no wheezing or crackles noted. Cardio regular rate, regular rhythm, no murmurs and peripheral pulses 2+ throughout GI normal to inspection, nondistended, normoactive bowel sounds, soft to palpation, non-tender and non-distended Extremity normal to inspection and no pedal edema Assessment & Plan Assessment/Plan (1) Acute alteration in mental status: (2) Hyperosmolar hyperglycemic state (HHS): (3) BENJAMIN (acute kidney injury): (4) Acute respiratory failure: PLAN: Plan Patient is a 68-year-old female who presented [facility] ED on 08/08/2024 with altered mental status. 1. Acute metabolic encephalopathy ? Compliance Professional and neurology following. Initially presented to ED after being found down unresponsive for unclear duration of time. Initial CT head unremarkable. TSH and ammonia were within normal limits. 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 EEG consistent with severe diffuse encephalopathy without any epileptiform discharges. Has not been on any sedating medications during hospitalization and unfortunately has not had any meaningful neurologic recovery. Discussed with sister at bedside on 08/13, see quick note for further details. CODE STATUS changed to DNR CCA, do not reintubate with tentative plan to transition to comfort care status with extubation early this coming week. 2. Acute hypoxemic respiratory failure with concern for aspiration pneumonia ? Compliance Professional following as above. Emergently intubated in ED given altered mentation. Chest x-ray on admit showed focal infiltrate in left lower lobe concerning for aspiration pneumonia. Infectious workup has been negative. Continue IV antibiotics for now. Remains on assist controlled mode of mechanical ventilation with low oxygen requirements and notably has been initiating her own breaths, but next patient has been precluded by her mental status. Appreciate event operations manager recommendations. 3. BENJAMIN on CKD stage IV, resolved ? Nephrology following. Presumed prerenal in setting of HHS with general hypovolemia. Did have elevated CK level on admit but not consistent with rhabdomyolysis. Given judicious IV fluid resuscitation with improvement. Improved back to baseline as of 08/12 with adequate urine output. Remains mildly volume overloaded, continue gentle diuresis per nephrology recommendations. 4. Hyperosmolar hyperglycemic state, resolved; poorly controlled type 2 diabetes mellitus ? Glucose 756 with mental status change on admit. Known history of poorly controlled diabetes, last A1c 13.1% in April. Currently on tube feeds, continue basal insulin and corrective insulin every 6 hours and adjust doses as needed. Chronic medical conditions: ? Obesity: BMI 33 on admit. Complicates hospital course, care and prognosis. ? GERD: Continue home PPI. ? Hypertension: Holding home beta-suresh and LOGAN inhibitor. DVT prophylaxis: Heparin subcu CODE STATUS: DNR CCA, do not reintubate Expected disposition: TBD Total clinical time spent by myself addressing the patient's medical issues, reviewing all the data, and collaborating with patient's care team: 50 minutes. Charges/Coding Visit Charges Inpatient E&M: 04603 Subs Hosp L3
--- NOTE | 2024-08-13 11:42 | PCM.HOSP.N ---
Hospitalist Note Had discussion with patient's sister Maia at bedside this morning. Maia is one of the patient's three sisters and she sees the patient regularly. She had the patient over and it is suspected the patient was down at home from Thursday until Pat found her unresponsive at home on Thursday. Pat and her sisters have been discussing patient's plan of care moving forward including her CODE STATUS. Maia is a nurse and one of the other sisters is a nurse as well. Patient has no healthcare power of senior trial attorney and her sisters are next of kin. Pat noted that patient had expressed to them in the past that she would not want to be kept on life support for the rest of her life if they came to that. She was okay with initial intubation and resuscitation measures if needed but no long-term life support. Given patient's ongoing unresponsiveness with no sedation given to patient during this hospitalization, Pat and her sisters are understanding that patient may never have recovery of her mental status. Given these things, they wished for patient to be transitioned to DNR CCA, do not reintubate CODE STATUS. I discussed with them that patient has been breathing over the ventilator and if we were to extubate her, there is a good chance that she may survive for days to short weeks. Given that we have no fluid pump operator in house this weekend, I recommended that we continue to keep the patient intubated over this weekend, with the tentative plan being to discuss extubation early this coming week and likely transition to DNRCC status and hospice care. Maia was agreeable with this plan.
--- NOTE | 2024-08-13 11:45 | PCM.PN.TICU ---
Objective Data Objective Data Vital Signs: Vital Signs Last response Temperature 38.4 C H 08/13/24 11:00 Temperature Source Core 08/13/24 11:00 Pulse Rate 94 08/13/24 11:00 Pulse Strength Normal (2+) 08/12/24 22:00 Respiratory Rate 17 08/13/24 11:00 Respiratory Effort Mechanically Ventilated 08/13/24 08:36 Respiratory Depth Normal 08/13/24 05:00 Respiratory Pattern Normal 08/13/24 10:58 Blood Pressure 151/84 H 08/13/24 11:00 Blood Pressure Mean 106 08/13/24 11:00 Blood Pressure Source Monitor 08/13/24 11:00 Blood Pressure Position Semi-Fowlers 08/13/24 11:00 Blood Pressure Location Left Arm 08/13/24 11:00 Pulse Ox 93 08/13/24 11:00 Oxygen Delivery Method Mechanical Ventilator 08/13/24 11:00 Oxygen Flow Rate (L/min) 15 08/08/24 10:09 Fraction of Inspired Oxygen (FIO2) 21 08/13/24 11:00 I&O: I&O Last 24 Hours 08/12/24 08/12/24 08/13/24 11:59 23:59 11:59 Intake Total 1810 / 2470 660 / 2470 1610 / 1610 Output Total 750 / 2650 1900 / 2650 750 / 750 Balance 1060 / -180 -1240 / -180 860 / 860 I&O: Total Stay 08/08/24 10:07 thru 08/13/24 10:41 Intake Total 60446.93 Output Total 77478 Balance 8586.93 Current Meds Ordered / Administered: Current meds ordered / Administered Generic Name Dose Route Start Last Admin Trade Name Freq PRN Reason Stop Dose Admin Acetaminophen 650 mg 08/13/24 10:56 08/13/24 11:18 Acetaminophen 650 Mg/20 Ml Udc GT 650 mg Q6H PRN PRN Administration Pain 1-10 or Fever Albuterol Sulfate 2.5 mg 08/08/24 14:04 Albuterol 2.5 Mg/3 Ml Vial.Neb. INHALATION Q2H PRN PRN SOB &/OR WHEEZING Chlorhexidine Gluconate 15 ml 08/08/24 14:04 08/13/24 09:18 Chlorhexidine 15 Ml PO 15 ml BID CHRISSIE Administration Chlorhexidine Gluconate 1 each 08/11/24 10:00 08/13/24 09:18 Chlorhexidine Gluc 2% Cloth 1 Each [place] TOPICAL 1 each DAILY CHRISSIE Administration Erythromycin 1 applic 08/09/24 22:00 08/13/24 09:18 Erythromycin Base 1 Opth.Tube LEFT EYE 1 applic BID CHRISSIE Administration Furosemide 20 mg 08/12/24 18:00 08/13/24 09:19 Furosemide 20 Mg/2 Ml Vial IV 20 mg BIDLX CHRISSIE Administration Protocol Heparin Sodium (Porcine) 5,000 unit 08/08/24 14:04 08/13/24 09:18 Heparin Injection (Vial) 5,000 Unit/Ml Vial SC 5,000 unit Q12 CHRISSIE Administration Dextrose 250 mls @ 999 mls/hr 08/08/24 12:01 Dextrose 10%-Water IV .Q16M PRN Hypoglycemic Protocol Protocol Dextrose 250 mls @ 999 mls/hr 08/08/24 14:04 Dextrose 10%-Water IV .Q16M PRN Hypoglycemic Protocol Protocol Pantoprazole Sodium 40 mg/ 110 mls @ 330 mls/hr 08/08/24 14:04 08/13/24 10:41 Sodium Chloride IV Infused Q12 CHRISSIE Infusion Vancomycin IV-PHARMACY TO DOSE 500 mls @ 250 mls/hr 08/08/24 14:16 1 each/ Sodium Chloride IV PRN PRN Rx to Dose Protocol Enteral Nutritional Formula 1,000 mls @ 50 mls/hr 08/10/24 09:30 08/13/24 09:29 Vital Af 1.2 Cesar Liquid GT 50 mls/hr .Q20H CHRISSIE Administration Piperacillin Sod/Tazobactam 50 mls @ 12.5 mls/hr 08/10/24 14:30 08/13/24 09:13 Sod 3.375 gm/ Sodium Chloride IV Infused Q8 CHRISSIE Infusion Sodium Chloride 500 mls @ 15 mls/hr 08/10/24 20:26 IV .[id number] PRN Saline Flush Sodium Chloride 500 mls @ 15 mls/hr 08/10/24 20:26 IV .[id number] PRN Additional IVPB Infusion Vancomycin HCl 1,000 mg in 200 mls @ 200 mls/hr 08/11/24 00:00 08/13/24 01:30 Vancomycin IV Infused Q24H CHRISSIE Infusion Insulin Glargine 40 unit 08/13/24 10:00 08/13/24 09:19 Insulin Glargine-Yfgn 100 Unit/Ml Pen SC 40 unit DAILY CHRISSIE Administration Insulin Human Lispro 0 unit 08/09/24 00:00 08/13/24 11:23 Insulin Lispro 100 Unit/Ml Insuln.Pen SC 8 unit Q6 CHRISSIE Administration Protocol Insulin Human Lispro 10 unit 08/13/24 12:00 08/13/24 11:24 Insulin Lispro 100 Unit/Ml Insuln.Pen SC 10 units Q6 CHRISSIE Administration Nystatin 1 applic 08/09/24 14:00 08/13/24 05:05 Nystatin Powder 15gm Bottle TOPICAL 1 applic TID [facility] Administration Protocol Ondansetron HCl 4 mg 08/08/24 14:04 Ondansetron 4 Mg/2 Ml Vial IV Q8H PRN PRN NAUSEA/VOMITING Sodium Chloride 10 - 40 ml 08/10/24 20:26 08/13/24 05:08 0.9% Saline Lock 10 Ml Syringe IV 20 ml UD PRN Administration SALINE FLUSH Vancomycin Protocol 1 lab 08/14/24 21:30 Vancomycin Trough/Random Due MC 08/15/24 01:30 DAILY [facility] Lab / Micro Data 08/13/24 03:48 08/13/24 03:48 Labs: Laboratory Results - last 24 hr 08/12/24 11:58: POC Glucose 351 H 08/12/24 16:09: POC Glucose 289 H 08/12/24 17:50: POC Glucose 275 H 08/12/24 23:30: Vancomycin Trough 20.0 H 08/13/24 00:11: POC Glucose 223 H 08/13/24 03:48: WBC 11.4 H, RBC 3.47 L, Hgb 9.9 L, Hct 30.8 L, MCV 88.8, MCH 28.5, MCHC 32.1, RDW Std Deviation 44.2 H, RDW Coeff of Steven 13.7, Plt Count 205, MPV 10.4, Immature Gran % (Auto) 2.600 H, Neut % (Auto) 74.8 H, Lymph % (Auto) 12.5 L, [place] % (Auto) 8.0, Eos % (Auto) 1.7, Baso % (Auto) 0.4, Absolute Neuts (auto) 8.5 H, Absolute Lymphs (auto) 1.42, Nucleated RBC % 0, Sodium 144, Potassium 3.2 L, Chloride 112 H, Carbon Dioxide 24.0, Anion Gap 8, BUN 41 H, Creatinine 1.94 H, Estim Creat Clear Calc 27.02, Est GFR (MDRD) Af Amer 33 L, Est GFR (MDRD) Non-Af 27 L, BUN/Creatinine Ratio 21.1 H, Glucose 312 H, Calcium 7.8 L, Total Bilirubin 0.50, AST 60 H, ALT 82 H, Alkaline Phosphatase 145 H, Total Creatine Kinase 104, Total Protein 5.7 L, Albumin 1.9 L, Globulin 3.8, Albumin/Globulin Ratio 0.5 L 08/13/24 04:51: POC Glucose 245 H Imaging Radiology Impression Chest X-Ray 08/12/24 20:50 IMPRESSION: Endotracheal tube terminates 5 cm above the yajaira. Enteric tube terminates in the stomach. No acute pulmonary finding. Electronically Signed: Bret Mason MD at 21:40 EST , Assessment and Plan . Assessment and plan: HPI Patient seen and examined Chart and data reviewed She is restless - unfortunately not cooperative MV 10 LPM - overbreathing Some fever - BCX reveal [employer] Supplementing K+ EEG noted, MRI noted PE GEN restless VS as above HEENT AMBER NECK supple COR RRR CHEST CTA ABD soft EXT pitting edema SKIN w/d OFELIA grossly NF, but not interactive/cooperative ASSESSMENT 1. Acute respiratory failure requiring MV support 2. Delirium / encephalopathy 3. Improved hyperosmolar hyperglycemia 4. Renal insufficiency 5. Hypervolemia 6. Fever - (?) [employer] bacteremia 7. DM TREATMENT PLAN -MV support -follow [employer] exam -precedex as needed -(-) I/O -receiving ABX -follow renal function -TF / sq insulin -VTE ppx -care planning ongoing Critical Care Time: 50 min The entirety of this encounter was done via Telemedicine
[2024-08-13 13:07] LABS: Bedside Glucose 344 mg/dL (74-106)
[2024-08-13] MEDS: dexMEDEtomidine 400 MCG in 0.9% Normal Saline (100mL Bag) 96 ML 10.2 MCG CONT INF (14:26)
[2024-08-13] MEDS: Potassium Chloride Oral Soln 20 MEQ/15 ML UDC 40 MEQ PO (14:28)
[2024-08-13 15:29] LABS: Anion Gap 7 (5-15); BUN 43 mg/dL (7-18); BUN/Creat Ratio 22.4 RATIO (10-20); Calcium,Total 8.1 mg/dL (8.5-10.1); Chloride 113 mmol/L (98-107); Creatinine, Serum 1.92 mg/dL (0.55-1.02); EST Glomerular Filtration Rate 28 mL/min (>60); Est Glom Filt Rate - Afr Amer 33 mL/min (>60); Estimated Creatinine Clearance 27.09 ml/min; Glucose 312 mg/dL (74-106); Potassium 3.4 mmol/L (3.5-5.1); Sodium Level 145 mmol/L (136-145)
[2024-08-13 17:21] LABS: Bedside Glucose 247 mg/dL (74-106)
[2024-08-13] MEDS: dexMEDEtomidine 400 MCG in 0.9% Normal Saline (100mL Bag) 96 ML 16.3 MCG CONT INF (20:22)
[2024-08-13] MEDS: Propofol 10MG/Ml 1,000 MG/100 ML Bottle 4.9 MG CONT INF (21:36)
[2024-08-14] VITALS (39 sets, daily range): BP systolic 79–123; BP diastolic 43–91; PULSE 67–80; RESP 13–18; TEMP 37.4–39.2; O2SAT 94–97; BMI 35.5
[2024-08-14] MEDS: Insulin Lispro 100 UNIT/ML INSULN.PEN SC ×3 (01:04→13:04)
[2024-08-14] MEDS: Vancomycin IV 1,000 MG/200 ML BAG 200 MG IV (01:12)
[2024-08-14] MEDS: Acetaminophen 650 MG/20 ML UDC GT ×2 (01:13→08:31)
[2024-08-14 02:07] LABS: Bedside Glucose 234 mg/dL (74-106)
[2024-08-14] MEDS: Insulin Lispro 100 UNIT/ML INSULN.PEN 10 UNIT SC ×4 (02:10→17:41)
[2024-08-14] MEDS: Propofol 10MG/Ml 1,000 MG/100 ML Bottle 17.1 MG CONT INF ×2 (04:35→21:11)
--- NOTE | 2024-08-14 05:45 | RAD_ITS ---
INDICATION: ARF EXAMINATION/TECHNIQUE: X-RAY - XR Chest 1 View AP portable. 5:38 AM COMPARISON: Prior study dated: 08/12/2024 FINDINGS: LINES/DEVICES: Tip of the endotracheal tube is 3 cm above the yajaira. NG tube tip in the stomach. Central venous catheter unchanged. LUNGS: Minimal opacity at the left lung base increased prior. No consolidation. No pneumothorax. MEDIASTINUM: Unremarkable. CARDIAC SILHOUETTE: Not enlarged. BONES AND SOFT TISSUES: No acute abnormalities. RAD/Chest 1 View (Portable) IMPRESSION: Minimal left basilar atelectasis. Electronically Signed: Fe Cooper MD at 6:56 EST ,
[2024-08-14 05:53] LABS: Absolute Lymphocyte Count 2.67 X10^3/uL (0.83-4.51); Absolute Neutrophil Count 10.8 X10^3/uL (2.0-7.7); Basophil# 0.06 X10^3/uL; Basophil% 0.4 % (0-1); Eosinophil# 0.18 X10^3/uL; Eosinophils% 1.2 % (0-5); Hematocrit 30.6 % (37-47); Lymphocyte # 2.67 X10^3/ul (0.83-4.51); Lymphocyte % 17.7 % (19-41); Mean Corp Hgb Conc 32.7 g/dL (32-36); Mean Corpuscular Hgb 29.4 pg (27.0-32.0); Mean Platelet Vol. 10.8 fl (6.2-12.0); Monocyte# 1.12 X10^3/uL; Monocyte% 7.4 % (0-10); NRBC Flagged by Analyzer 0 % (0-5); Neutrophil # 10.77 X10^3/uL (2.7-7.7); Neutrophil % 71.2 % (47-70); POSITIVE MORPHOLOGY YES; Platelet Count 218 K/mm3 (150-450); RBC Distribution Width CV 13.9 % (11.6-14.6); RBC Distribution Width SD 45.4 fl (35.1-43.9); White Blood Count 15.1 K/mm3 (4.4-11.0)
[2024-08-14] MEDS: Piperacil/Tazobactam 3.375 GM in 0.9% Normal Saline (50mL MB+) 50 ML IV ×3 (05:54→21:13)
[2024-08-14] MEDS: Vital AF 1.2 Cal Liquid 1,000 ML 50 ML GT (05:55)
[2024-08-14] MEDS: Nystatin Powder 15gm Bottle 1 APPLIC TOPICAL ×3 (05:56→21:12)
[2024-08-14 06:08] LABS: Differential Indicated SCAN CRITERIA MET
[2024-08-14 06:16] LABS: ALB/GLOB Ratio 0.5 RATIO (0.9-2.4); AST(SGOT) 51 U/L (15-37); Alanine Aminotransfer ALT/SGPT 81 U/L (13-56); Albumin, Serum 1.9 g/dL (3.2-5.0); Alkaline Phosphatase 137 U/L (45-117); Anion Gap 7 (5-15); BUN 57 mg/dL (7-18); BUN/Creat Ratio 23.5 RATIO (10-20); Calcium,Total 7.6 mg/dL (8.5-10.1); Chloride 116 mmol/L (98-107); Creatinine, Serum 2.43 mg/dL (0.55-1.02); EST Glomerular Filtration Rate 21 mL/min (>60); Est Glom Filt Rate - Afr Amer 25 mL/min (>60); Estimated Creatinine Clearance 21.41 ml/min; Globulin 3.6 g/dL (2.2-4.2); Glucose 214 mg/dL (74-106); Potassium 3.8 mmol/L (3.5-5.1); Protein, Total 5.5 g/dL (6.4-8.2); Sodium Level 149 mmol/L (136-145)
[2024-08-14 06:22] LABS: CPK Total, Creatine Kinase 55 U/L (26-192); Triglycerides 296 mg/dL
[2024-08-14 07:01] LABS: Allen Test Positive; Base Excess -2 mmol/L (-2 to +2); Bicarbonate 22.5 mmol/L (22-26); Blood Gas Specimen Type ART; Mode AC; O2 Delivery Device Adult Vent; PEEP 5; PO2 77 mmHG (75-100); RR 16; SITE R Radial; SO2 96 % (95-99); Total Carbon Dioxide 24 mmol/L; pCO2 33.5 mmHg (35-45); pH 7.43 (7.35-7.45)
[2024-08-14 08:21] LABS: Differential Comment SCANNED
[2024-08-14] MEDS: Erythromycin Base 1 OPTH.TUBE 1 APPLIC LEFT EYE ×2 (10:33→21:12)
[2024-08-14] MEDS: CHLORHEXIDINE GLUC 2% CLOTH 1 EACH TOWELETTE TOPICAL (10:33)
[2024-08-14] MEDS: Heparin Injection (Vial) 5,000 UNIT/ML VIAL 5000 UNIT SC ×2 (10:33→21:12)
[2024-08-14] MEDS: Insulin Glargine-YFGN 100 UNIT/ML Pen 40 UNIT SC (10:33)
[2024-08-14] MEDS: Chlorhexidine 15 ML PO ×2 (10:33→21:13)
[2024-08-14] MEDS: Pantoprazole Sodium 40 MG in 0.9% Normal Saline (100mL MB+) 100 ML 330 MG IV ×2 (10:38→20:58)
[2024-08-14] MEDS: Propofol 10MG/Ml 1,000 MG/100 ML Bottle 19.5 MG CONT INF ×2 (11:29→15:08)
--- NOTE | 2024-08-14 12:06 | PN.HOSP_ITS ---
Reason for Visit Reason for Visit: Diagnoses Type 2 diabetes mellitus with hyperosmolarity without nonketotic hyperglycemic- hyperosmolar coma ([facility]) (08/08/24) Acidosis, unspecified (08/08/24) Pneumonitis due to inhalation of food and vomit (08/08/24) Acute respiratory failure, unspecified whether with hypoxia or hypercapnia (08/08/24) Rhabdomyolysis (08/08/24) Acute kidney failure, unspecified (08/08/24) Altered mental status, unspecified (08/08/24) Subjective Subjective Patient began to exhibit more nonpurposeful movements yesterday afternoon. Was started on Precedex but became febrile to 102.8F on this so she was switched to propofol. She notably has been on vancomycin and Zosyn for several days so low concern for new infection causing that fever. Saw patient at bedside this morning. Propofol was running at 40. Patient was not responding to any commands for me. Objective Data Objective Data Vital Signs: Vital Signs Temp Pulse Resp BP Pulse Ox O2 Del Method O2 Flow Rate 101 F H 74 17 123/54 H 97 Mechanical Ventilator 08/14/24 10:55 08/14/24 10:55 08/14/24 10:55 08/14/24 10:55 08/14/24 10:55 08/14/24 10:55 08/14/24 09:00 FiO2 21 08/14/24 10:55 Oxygen Flow Rate (L/min) 21 Oxygen Delivery Method Mechanical Ventilator Weight: 85.4 kg Body Mass Index (BMI) 35.5 Intake & Output: Intake and Output for Last 24 Hours 08/12/24 08/13/24 08/14/24 23:59 23:59 23:59 Intake Total 2470 / 2470 1962.36 / 1965.41 1643.99 / 1643.99 Output Total 2650 / 2650 2450 / 2450 650 / 650 Balance -180 / -180 -487.64 / -484.59 993.99 / 993.99 Lab / Micro Data 08/14/24 05:45 08/14/24 05:45 Labs: Laboratory Results - last 24 hr 08/13/24 03:48: Sodium 145, Potassium 3.4 L, Chloride 113 H, Carbon Dioxide 25.0, Anion Gap 7, BUN 43 H, Creatinine 1.92 H, Estim Creat Clear Calc 27.09, E st GFR (MDRD) Af Amer 33 L, Est GFR (MDRD) Non-Af 28 L, BUN/Creatinine Ratio 22.4 H, Glucose 312 H, Calcium 8.1 L 08/13/24 11:23: POC Glucose 344 H 08/13/24 17:03: POC Glucose 247 H 08/14/24 00:57: POC Glucose 234 H 08/14/24 05:45: WBC 15.1 H, RBC 3.40 L, Hgb 10.0 L, Hct 30.6 L, MCV 90.0, MCH 29.4, MCHC 32.7, RDW Std Deviation 45.4 H, RDW Coeff of Steven 13.9, Plt Count 218, MPV 10.8, Immature Gran % (Auto) 2.100 H, Neut % (Auto) 71.2 H, Lymph % (Auto) 17.7 L, [place] % (Auto) 7.4, Eos % (Auto) 1.2, Baso % (Auto) 0.4, Absolute Neuts (auto) 10.8 H, Absolute Lymphs (auto) 2.67, Nucleated RBC % 0, Differential Comment SCANNED, Sodium 149 H, Potassium 3.8, Chloride 116 H, Carbon Dioxide 25.0, Anion Gap 7, BUN 57 H, Creatinine 2.43 H, Estim Creat Clear Calc 21.41, E st GFR (MDRD) Af Amer 25 L, Est GFR (MDRD) Non-Af 21 L, BUN/Creatinine Ratio 23.5 H, Glucose 214 H, Calcium 7.6 L, Total Bilirubin 0.30, AST 51 H, ALT 81 H, Alkaline Phosphatase 137 H, Total Creatine Kinase 55, Total Protein 5.5 L, A lbumin 1.9 L, Globulin 3.6, Albumin/Globulin Ratio 0.5 L, Triglycerides 296 H Micro: Microbiology 08/08/24 11:06 Blood Culture (Wb) - Right Forearm Bacteria Detection (PCR) - Final Staphylococcus epidermidis mecA Resistance Marker 08/08/24 11:06 Blood Culture (Wb) - Right Forearm Blood Culture - Final Staphylococcus epidermidis 08/08/24 10:27 Sputum, Induced/Lukens Gram Stain - Final 08/08/24 10:27 Sputum, Induced/[place]ukens Respiratory Culture - Final Citrobacter braakii 08/08/24 10:35 Blood Culture (Wb) - Right Forearm Blood Culture - Final Staphylococcus epidermidis 08/08/24 10:20 Urine Catheter - Alas Urine Culture - Final Mixed Gram Positive Organisms 08/08/24 14:36 Mucosa - Nasopharyngeal Respiratory Panel (PCR) - Final 08/08/24 14:36 Mucosa - Nasopharyngeal SARS-CoV-2, Influenza & RSV (PCR) - Final 08/08/24 14:25 Wound - Left Foot Skin and Soft Tissue MRSA/MSSA (PCR - Final 08/08/24 14:18 Mucosa - Nose Coronavirus COVID-19 PCR - Final 08/08/24 14:25 Urine Catheter - Alas Streptococcus pneumoniae Antigen (M - Final 08/08/24 14:25 Urine Catheter - Alas Legionella Antigen - Final ABG Data ABG results: ABG 08/14/24 06:57 Specimen Type ART Sample Site R Radial pH 7.43 Bicarbonate Actual 22.5 Total CO2 24 Base Excess -2 O2 Saturation 96 O2 % 21.0 ABG pCO2 33.5 L ABG pO2 77 Slim Test Positive Respiration Rate 16 O2 Delivery Device Adult Vent Vent Mode AC Tidal Volume 450.0 POC PEEP 5 Radiography Diagnostic Testing: Radiology Impression Chest X-Ray 08/14/24 05:45 IMPRESSION: Minimal left basilar atelectasis. Electronically Signed: Fe Cooper MD at 6:56 EST , Physical Exam Const Constitutional Narrative: Intubated and sedated. Not following any commands. HEENT normocephalic, head/scalp atraumatic and nasal mucous membranes and turbinates normal HEENT Narrative: ET tube in place. Eyes conjunctivae normal Neck supple Chest inspection of chest normal Resp normal air movement and clear to auscultation bilaterally Resp Narrative: On mechanical ventilation at low requirements. Good breath sounds bilaterally, no wheezing or crackles noted. Cardio regular rate, regular rhythm, no murmurs and peripheral pulses 2+ throughout GI normal to inspection, nondistended, normoactive bowel sounds, soft to palpation, non-tender and non-distended Extremity normal to inspection and no pedal edema Assessment & Plan Assessment/Plan (1) Acute alteration in mental status: (2) Hyperosmolar hyperglycemic state (HHS): (3) BENJAMIN (acute kidney injury): (4) Acute respiratory failure: PLAN: Plan Patient is a 68-year-old female who presented [facility] ED on 08/08/2024 with altered mental status. 1. Acute metabolic encephalopathy ? 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 Initially presented to ED after being found down unresponsive for unclear duration of time. Initial CT head unremarkable. TSH and ammonia were within normal limits. 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 EEG consistent with severe diffuse encephalopathy without any epileptiform discharges. Began to have increasing nonpurposeful movements on 08/13 requiring initiation of sedation. Per nursing, still has not had any purposeful movements or been able to follow any commands to this point. Discussed with sister at bedside on 08/13, see quick note for further details. CODE STATUS changed to DNR CCA, do not reintubate. Will defer to assembler 1st shift for SAT/SBT trials moving forward. 2. Acute hypoxemic respiratory failure with concern for aspiration pneumonia ? Fuel Truck Driver following as above. Emergently intubated in ED given altered mentation. Chest x-ray on admit showed focal infiltrate in left lower lobe concerning for aspiration pneumonia. Infectious workup has been negative. Continue IV antibiotics for now. Remains on assist controlled mode of mechanical ventilation with low oxygen requirements and notably has been initiating her own breaths, but next patient has been precluded by her mental status. Appreciate assembler 1st shift recommendations. 3. BENJAMIN on CKD stage IV, resolved ? Nephrology following. Presumed prerenal in setting of HHS with general hypovolemia. Did have elevated CK level on admit but not consistent with rhabdomyolysis. Given judicious IV fluid resuscitation with improvement. Improved back to baseline as of 08/12 with adequate urine output. Had worsening of kidney function on 08/14, IV Lasix discontinued and will plan to restart home p.o. Lasix on 08/15. Continue to monitor daily BMP and urine output. 4. Hyperosmolar hyperglycemic state, resolved; poorly controlled type 2 diabetes mellitus ? Glucose 756 with mental status change on admit. Known history of poorly controlled diabetes, last A1c 13.1% in April. Currently on tube feeds, continue basal insulin and corrective insulin every 6 hours and adjust doses as needed. 5. Hypernatremia ? Had hypernatremia to sodium 152 earlier in hospitalization. This improved back to normal range by 08/11. However had worsening sodium to 149 on 08/14 presumed secondary to IV diuresis. IV diuretic discontinued as noted above. Continue to monitor daily sodium level. Chronic medical conditions: ? Obesity: BMI 33 on admit. Complicates hospital course, care and prognosis. ? GERD: Continue home PPI. ? Hypertension: Holding home beta-suresh and LOGAN inhibitor. DVT prophylaxis: Heparin subcu CODE STATUS: DNR CCA, do not reintubate Expected disposition: TBD Total clinical time spent by myself addressing the patient's medical issues, reviewing all the data, and collaborating with patient's care team: 35 minutes. Charges/Coding Visit Charges Inpatient E&M: 78671 Subs Hosp L2
[2024-08-14 13:45] LABS: Bedside Glucose 223 mg/dL (74-106)
--- NOTE | 2024-08-14 14:01 | PCM.PN.TICU ---
Objective Data Objective Data Vital Signs: Vital Signs Last response Temperature 38.2 C H 08/14/24 13:00 Temperature Source Core 08/14/24 13:00 Pulse Rate 75 08/14/24 13:00 Pulse Strength Normal (2+) 08/12/24 22:00 Respiratory Rate 14 08/14/24 13:00 Respiratory Effort Mechanically Ventilated 08/14/24 09:00 Respiratory Depth Normal 08/14/24 09:00 Respiratory Pattern Normal 08/14/24 09:32 Blood Pressure 112/50 L 08/14/24 13:00 Blood Pressure Mean 70 08/14/24 13:00 Blood Pressure Source Monitor 08/14/24 13:00 Blood Pressure Position Semi-Fowlers 08/14/24 13:00 Blood Pressure Location Left Arm 08/14/24 13:00 Pulse Ox 97 08/14/24 13:00 Oxygen Delivery Method Mechanical Ventilator 08/14/24 13:00 Oxygen Flow Rate (L/min) 21 08/14/24 09:00 Fraction of Inspired Oxygen (FIO2) 21 08/14/24 13:00 I&O: I&O Last 24 Hours 08/13/24 08/14/24 08/14/24 23:59 11:59 23:59 Intake Total 352.36 / 1965.41 1643.99 / 1673.57 29.58 / 1673.57 Output Total 1700 / 2450 650 / 825 175 / 825 Balance -1347.64 / -484.59 993.99 / 848.57 -145.42 / 848.57 I&O: Total Stay 08/08/24 10:07 thru 08/14/24 13:00 Intake Total 41742.86 Output Total 84306 Balance 8087.86 Current Meds Ordered / Administered: Current meds ordered / Administered Generic Name Dose Route Start Last Admin Trade Name Freq PRN Reason Stop Dose Admin Acetaminophen 650 mg 08/13/24 10:56 08/14/24 08:31 Acetaminophen 650 Mg/20 Ml Udc GT 650 mg Q6H PRN PRN Administration Pain 1-10 or Fever Albuterol Sulfate 2.5 mg 08/08/24 14:04 Albuterol 2.5 Mg/3 Ml Vial.Neb. INHALATION Q2H PRN PRN SOB &/OR WHEEZING Chlorhexidine Gluconate 15 ml 08/08/24 14:04 08/14/24 10:33 Chlorhexidine 15 Ml PO 15 ml BID CHRISSIE Administration Chlorhexidine Gluconate 1 each 08/11/24 10:00 08/14/24 10:33 Chlorhexidine Gluc 2% Cloth 1 Each [place] TOPICAL 1 each DAILY CHRISSIE Administration Erythromycin 1 applic 08/09/24 22:00 08/14/24 10:33 Erythromycin Base 1 Opth.Tube LEFT EYE 1 applic BID CHRISSIE Administration Furosemide 20 mg 08/15/24 10:00 Furosemide 20 Mg Tablet PO DAILY CHRISSIE Protocol Heparin Sodium (Porcine) 5,000 unit 08/08/24 14:04 08/14/24 10:33 Heparin Injection (Vial) 5,000 Unit/Ml Vial SC 5,000 unit Q12 CHRISSIE Administration Dextrose 250 mls @ 999 mls/hr 08/08/24 12:01 Dextrose 10%-Water IV .Q16M PRN Hypoglycemic Protocol Protocol Dextrose 250 mls @ 999 mls/hr 08/08/24 14:04 Dextrose 10%-Water IV .Q16M PRN Hypoglycemic Protocol Protocol Pantoprazole Sodium 40 mg/ 110 mls @ 330 mls/hr 08/08/24 14:04 08/14/24 11:30 Sodium Chloride IV Infused Q12 CHRISSIE Infusion Vancomycin IV-PHARMACY TO DOSE 500 mls @ 250 mls/hr 08/08/24 14:16 1 each/ Sodium Chloride IV PRN PRN Rx to Dose Protocol Enteral Nutritional Formula 1,000 mls @ 50 mls/hr 08/10/24 09:30 08/14/24 05:55 Vital Af 1.2 Cesar Liquid GT 50 mls/hr .Q20H CHRISSIE Administration Piperacillin Sod/Tazobactam 50 mls @ 12.5 mls/hr 08/10/24 14:30 08/14/24 13:08 Sod 3.375 gm/ Sodium Chloride IV 12.5 mls/hr Q8 CHRISSIE Administration Sodium Chloride 500 mls @ 15 mls/hr 08/10/24 20:26 IV .[id number] PRN Saline Flush Sodium Chloride 500 mls @ 15 mls/hr 08/10/24 20:26 IV .[id number] PRN Additional IVPB Infusion Vancomycin HCl 1,000 mg in 200 mls @ 200 mls/hr 08/11/24 00:00 08/14/24 02:40 Vancomycin IV Infused Q24H CHRISSIE Infusion Dexmedetomidine HCl 400 mcg/ 100 mls @ 10.163 mls/hr 08/13/24 13:45 08/14/24 10:32 Sodium Chloride CONT INF Not Given .Q9H51M CHRISSIE Protocol 0.5 MCG/KG/HR Propofol 1,000 mg in 100 mls @ 4.878 mls/hr 08/13/24 21:10 08/14/24 13:00 Diprivan CONT INF 40 mcg/kg/min .Q12H CHRISSIE 19.5 mls/hr Titration Protocol 10 MCG/KG/MIN Insulin Glargine 40 unit 08/13/24 10:00 08/14/24 10:33 Insulin Glargine-Yfgn 100 Unit/Ml Pen SC 40 unit DAILY CHRISSIE Administration Insulin Human Lispro 0 unit 08/09/24 00:00 08/14/24 13:04 Insulin Lispro 100 Unit/Ml Insuln.Pen SC 4 unit Q6 CHRISSIE Administration Protocol Insulin Human Lispro 10 unit 08/13/24 12:00 08/14/24 13:04 Insulin Lispro 100 Unit/Ml Insuln.Pen SC 10 units Q6 CHRISSIE Administration Nystatin 1 applic 08/09/24 14:00 08/14/24 13:05 Nystatin Powder 15gm Bottle TOPICAL 1 applic TID CHRISSIE Administration Protocol Ondansetron HCl 4 mg 08/08/24 14:04 Ondansetron 4 Mg/2 Ml Vial IV Q8H PRN PRN NAUSEA/VOMITING Sodium Chloride 10 - 40 ml 08/10/24 20:26 08/13/24 17:12 0.9% Saline Lock 10 Ml Syringe IV 10 ml UD PRN Administration SALINE FLUSH Vancomycin Protocol 1 lab 08/14/24 21:30 Vancomycin Trough/Random Due MC 08/15/24 01:30 DAILY [facility] Lab / Micro Data 08/14/24 05:45 08/14/24 05:45 Labs: Laboratory Results - last 24 hr 08/13/24 03:48: Sodium 145, Potassium 3.4 L, Chloride 113 H, Carbon Dioxide 25.0, Anion Gap 7, BUN 43 H, Creatinine 1.92 H, Estim Creat Clear Calc 27.09, Est GFR (MDRD) Af Amer 33 L, Est GFR (MDRD) Non-Af 28 L, BUN/Creatinine Ratio 22.4 H, Glucose 312 H, Calcium 8.1 L 08/13/24 17:03: POC Glucose 247 H 08/14/24 00:57: POC Glucose 234 H 08/14/24 05:45: WBC 15.1 H, RBC 3.40 L, Hgb 10.0 L, Hct 30.6 L, MCV 90.0, MCH 29.4, MCHC 32.7, RDW Std Deviation 45.4 H, RDW Coeff of Steven 13.9, Plt Count 218, MPV 10.8, Immature Gran % (Auto) 2.100 H, Neut % (Auto) 71.2 H, Lymph % (Auto) 17.7 L, [place] % (Auto) 7.4, Eos % (Auto) 1.2, Baso % (Auto) 0.4, Absolute Neuts (auto) 10.8 H, Absolute Lymphs (auto) 2.67, Nucleated RBC % 0, Differential Comment SCANNED, Sodium 149 H, Potassium 3.8, Chloride 116 H, Carbon Dioxide 25.0, Anion Gap 7, BUN 57 H, Creatinine 2.43 H, Estim Creat Clear Calc 21.41, Est GFR (MDRD) Af Amer 25 L, Est GFR (MDRD) Non-Af 21 L, BUN/Creatinine Ratio 23.5 H, Glucose 214 H, Calcium 7.6 L, Total Bilirubin 0.30, AST 51 H, ALT 81 H, Alkaline Phosphatase 137 H, Total Creatine Kinase 55, Total Protein 5.5 L, Albumin 1.9 L, Globulin 3.6, Albumin/Globulin Ratio 0.5 L, Triglycerides 296 H 08/14/24 13:02: POC Glucose 223 H ABG Data ABG results: ABG 08/14/24 06:57 Specimen Type ART Sample Site R Radial pH 7.43 Bicarbonate Actual 22.5 Total CO2 24 Base Excess -2 O2 Saturation 96 O2 % 21.0 ABG pCO2 33.5 L ABG pO2 77 Slim Test Positive Respiration Rate 16 O2 Delivery Device Adult Vent Vent Mode AC Tidal Volume 450.0 POC PEEP 5 Imaging Radiology Impression Chest X-Ray 08/14/24 05:45 IMPRESSION: Minimal left basilar atelectasis. Electronically Signed: Fe Cooper MD at 6:56 EST , Assessment and Plan . 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 Acute respiratory failure requiring MV support 2. Delirium / encephalopathy 3. Improved hyperosmolar hyperglycemia 4. Renal insufficiency 5. Hypervolemia 6. Fever - (?) PARAPROFESSIONAL EDUCATION ASSISTANT bacteremia 7. DM 8. Hypernatremia TREATMENT PLAN -MV support -follow PARAPROFESSIONAL EDUCATION ASSISTANT exam -daily SAT -(-) I/O -receiving ABX - repeat BCX -follow renal function -TF / sq insulin -free water -VTE ppx -care planning ongoing Critical Care Time: 50 min The entirety of this encounter was done via Telemedicine
[2024-08-14] MEDS: 0.9% Saline Lock 10 ML Syringe IV (15:27)
[2024-08-14 18:06] LABS: Bedside Glucose 185 mg/dL (74-106)
[2024-08-14 18:20] LABS: Bedside Glucose 124 mg/dL (74-106)
[2024-08-14 22:50] LABS: Vancomycin, Trough Level 24.8 ug/mL (5.0-15.0)
--- NOTE | 2024-08-14 23:03 | PCM.RX.CS ---
Consult Antibiotic Management Pharmacy has been consulted to manage selected antibiotic: Vancomycin Type of Intervention Type of Consult: Follow-up Suspected Infection Suspected Infection: Sepsis Labs Labs: Sodium 149 mmol/L (136-145) H 08/14/24 05:45 Potassium 3.8 mmol/L (3.5-5.1) 08/14/24 05:45 Chloride 116 mmol/L (98-107) H 08/14/24 05:45 Carbon Dioxide 25.0 mmol/L (21.0-32.0) 08/14/24 05:45 Anion Gap 7 (5-15) 08/14/24 05:45 BUN 57 mg/dL (7-18) H 08/14/24 05:45 Creatinine 2.43 mg/dL (0.55-1.02) H 08/14/24 05:45 Est GFR (MDRD) Af Amer 25 mL/min (>60) L 08/14/24 05:45 Est GFR (MDRD) Non-Af 21 mL/min (>60) L 08/14/24 05:45 BUN/Creatinine Ratio 23.5 RATIO (10-20) H 08/14/24 05:45 Glucose 214 mg/dL (74-106) H 08/14/24 05:45 Vancomycin Trough 24.8 ug/mL (5.0-15.0) H 08/14/24 22:20 Random Vancomycin 15.6 ug/mL (0.0-15.0) H 08/10/24 05:16 Microbiology Microbiology: Microbiology 08/08/24 11:06 Blood Culture (Wb) - Right Forearm Bacteria Detection (PCR) - Final Staphylococcus epidermidis mecA Resistance Marker 08/08/24 11:06 Blood Culture (Wb) - Right Forearm Blood Culture - Final Staphylococcus epidermidis 08/08/24 10:27 Sputum, Induced/Lukens Gram Stain - Final 08/08/24 10:27 Sputum, Induced/Lukens Respiratory Culture - Final Citrobacter braakii 08/08/24 10:35 Blood Culture (Wb) - Right Forearm Blood Culture - Final Staphylococcus epidermidis 08/08/24 10:20 Urine Catheter - Alas Urine Culture - Final Mixed Gram Positive Organisms 08/08/24 14:36 Mucosa - Nasopharyngeal Respiratory Panel (PCR) - Final 08/08/24 14:36 Mucosa - Nasopharyngeal SARS-CoV-2, Influenza & RSV (PCR) - Final 08/08/24 14:25 Wound - Left Foot Skin and Soft Tissue MRSA/MSSA (PCR - Final 08/08/24 14:18 Mucosa - Nose Coronavirus COVID-19 PCR - Final 08/08/24 14:25 Urine Catheter - Alas Streptococcus pneumoniae Antigen (M - Final 08/08/24 14:25 Urine Catheter - Aals Legionella Antigen - Final Dosing Weight Weight used for dosin.4 kg Estimated Creatinine Clearance Estimated Creatinine Clearance: 21 Goal Trough Goal Trough: 15-20 mcg/mL Pharmacy Plan for Drug Dosing Pharmacy Plan for Drug Dosing: Vancomycin trough draw was high at 24.8. This was drawn just 21 hours post-dose, but with decrease in renal function (SCr from 1.94 to 2.43) over last 24 hours we will hold the current vanco dosing. A random level will be drawn in 12 hours to determine further orders. Pharmacy Service will continue to monitor and adjust dosing as required. Follow-Up Labs Follow-Up Labs: Trough: Vancomycin (random) Date/Time Labs Ordered Labs to be done on [date and time ordered]: 08/15/24 @1030 (random)
[2024-08-15] VITALS (29 sets, daily range): BP systolic 95–143; BP diastolic 46–117; PULSE 16–89; RESP 15–26; TEMP 36.9–37.4; O2SAT 92–98; BMI 33.8
[2024-08-15] MEDS: Vital AF 1.2 Cal Liquid 1,000 ML 50 ML GT ×2 (01:04→22:30)
[2024-08-15] MEDS: Propofol 10MG/Ml 1,000 MG/100 ML Bottle 17.1 MG CONT INF ×2 (01:57→06:38)
[2024-08-15 02:13] LABS: Bedside Glucose 70 mg/dL (74-106)
[2024-08-15 03:36] LABS: Absolute Lymphocyte Count 3.25 X10^3/uL (0.83-4.51); Absolute Neutrophil Count 10.1 X10^3/uL (2.0-7.7); Basophil# 0.07 X10^3/uL; Basophil% 0.5 % (0-1); Eosinophil# 0.24 X10^3/uL; Eosinophils% 1.6 % (0-5); Hematocrit 28.9 % (37-47); Hemoglobin 9.1 g/dL (12.0-15.0); Lymphocyte # 3.25 X10^3/ul (0.83-4.51); Lymphocyte % 21.8 % (19-41); Mean Corp Hgb Conc 31.5 g/dL (32-36); Mean Corpuscular Hgb 28.6 pg (27.0-32.0); Mean Corpuscular Volume 90.9 fL (81-99); Mean Platelet Vol. 10.9 fl (6.2-12.0); Monocyte# 1.03 X10^3/uL; Monocyte% 6.9 % (0-10); NRBC Flagged by Analyzer 0 % (0-5); Neutrophil # 10.07 X10^3/uL (2.7-7.7); Neutrophil % 67.5 % (47-70); POSITIVE MORPHOLOGY YES; Platelet Count 223 K/mm3 (150-450); RBC Distribution Width CV 14.3 % (11.6-14.6); RBC Distribution Width SD 46.4 fl (35.1-43.9); Red Blood Count 3.18 M/mm3 (4.2-5.4); White Blood Count 14.9 K/mm3 (4.4-11.0)
[2024-08-15 03:55] LABS: ALB/GLOB Ratio 0.5 RATIO (0.9-2.4); AST(SGOT) 96 U/L (15-37); Alanine Aminotransfer ALT/SGPT 76 U/L (13-56); Albumin, Serum 1.8 g/dL (3.2-5.0); Alkaline Phosphatase 113 U/L (45-117); Anion Gap 8 (5-15); BUN 60 mg/dL (7-18); BUN/Creat Ratio 25.2 RATIO (10-20); Calcium,Total 7.2 mg/dL (8.5-10.1); Chloride 112 mmol/L (98-107); Creatinine, Serum 2.38 mg/dL (0.55-1.02); EST Glomerular Filtration Rate 22 mL/min (>60); Est Glom Filt Rate - Afr Amer 26 mL/min (>60); Estimated Creatinine Clearance 22.44 ml/min; Globulin 3.5 g/dL (2.2-4.2); Glucose 116 mg/dL (74-106); Potassium 3.5 mmol/L (3.5-5.1); Protein, Total 5.3 g/dL (6.4-8.2); Sodium Level 143 mmol/L (136-145)
[2024-08-15 04:04] LABS: Differential Indicated SCAN CRITERIA MET
[2024-08-15] MEDS: Piperacil/Tazobactam 3.375 GM in 0.9% Normal Saline (50mL MB+) 50 ML IV ×3 (05:10→20:51)
[2024-08-15] MEDS: Nystatin Powder 15gm Bottle 1 APPLIC TOPICAL ×3 (06:34→20:34)
[2024-08-15 06:57] LABS: Bedside Glucose 117 mg/dL (74-106)
[2024-08-15] MEDS: Vancomycin Trough/Random Due 1 LAB MC (08:08)
[2024-08-15] MEDS: CHLORHEXIDINE GLUC 2% CLOTH 1 EACH TOWELETTE TOPICAL (08:09)
--- NOTE | 2024-08-15 08:10 | PCM.PN.HOSP ---
Reason for Visit Reason for Visit: Diagnoses Type 2 diabetes mellitus with hyperosmolarity without nonketotic hyperglycemic-hyperosmolar coma ([facility]) (08/08/24) Acidosis, unspecified (08/08/24) Pneumonitis due to inhalation of food and vomit (08/08/24) Acute respiratory failure, unspecified whether with hypoxia or hypercapnia (08/08/24) Rhabdomyolysis (08/08/24) Acute kidney failure, unspecified (08/08/24) Altered mental status, unspecified (08/08/24) Subjective Subjective Moving around more. Not following commands. Objective Data Objective Data Vital Signs: Vital Signs Temp Pulse Resp BP Pulse Ox O2 Del Method O2 Flow Rate 37.2 C 64 16 95/51 L 97 Mechanical Ventilator 08/15/24 05:00 08/15/24 07:00 08/15/24 07:00 08/15/24 07:00 08/15/24 07:00 08/15/24 07:00 08/14/24 09:00 FiO2 21 08/15/24 07:00 Oxygen Flow Rate (L/min) 21 Oxygen Delivery Method Mechanical Ventilator Weight: 81.3 kg Body Mass Index (BMI) 33.8 Intake & Output: Intake and Output for Last 24 Hours 08/13/24 08/14/24 08/15/24 23:59 23:59 23:59 Intake Total 1962.36 / 1965.41 1144.31 / 1144.31 Output Total 2450 / 2450 975 / 1175 600 / 600 Balance -487.64 / -484.59 1019.08 / 836.18 544.31 / 544.31 Lab / Micro Data 08/15/24 03:30 08/15/24 03:30 Labs: Laboratory Results - last 24 hr 08/14/24 05:45: Differential Comment SCANNED 08/14/24 05:52: POC Glucose 185 H 08/14/24 13:02: POC Glucose 223 H 08/14/24 17:39: POC Glucose 124 H 08/14/24 22:20: Vancomycin Trough 24.8 H 08/15/24 00:46: POC Glucose 70 L 08/15/24 03:30: WBC 14.9 H, RBC 3.18 L, Hgb 9.1 L, Hct 28.9 L, MCV 90.9, MCH 28.6, MCHC 31.5 L, RDW Std Deviation 46.4 H, RDW Coeff of Steven 14.3, Plt Count 223, MPV 10.9, Immature Gran % (Auto) 1.700 H, Neut % (Auto) 67.5, Lymph % (Auto) 21.8, [place] % (Auto) 6.9, Eos % (Auto) 1.6, Baso % (Auto) 0.5, Absolute Neuts (auto) 10.1 H, Absolute Lymphs (auto) 3.25, Nucleated RBC % 0, Sodium 143, Potassium 3.5, Chloride 112 H, Carbon Dioxide 23.0, Anion Gap 8, BUN 60 H, Creatinine 2.38 H, Estim Creat Clear Calc 22.44, Est GFR (MDRD) Af Amer 26 L, Est GFR (MDRD) Non-Af 22 L, BUN/Creatinine Ratio 25.2 H, Glucose 116 H, Calcium 7.2 L, Total Bilirubin 0.40, AST 96 H, ALT 76 H, Alkaline Phosphatase 113, Total Protein 5.3 L, Albumin 1.8 L, Globulin 3.5, Albumin/Globulin Ratio 0.5 L 08/15/24 06:33: POC Glucose 117 H Micro: Microbiology 08/08/24 11:06 Blood Culture (Wb) - Right Forearm Bacteria Detection (PCR) - Final Staphylococcus epidermidis mecA Resistance Marker 08/08/24 11:06 Blood Culture (Wb) - Right Forearm Blood Culture - Final Staphylococcus epidermidis 08/08/24 10:27 Sputum, Induced/Lukens Gram Stain - Final 08/08/24 10:27 Sputum, Induced/Lukens Respiratory Culture - Final Citrobacter braakii 08/08/24 10:35 Blood Culture (Wb) - Right Forearm Blood Culture - Final Staphylococcus epidermidis 08/08/24 10:20 Urine Catheter - Alas Urine Culture - Final Mixed Gram Positive Organisms 08/08/24 14:36 Mucosa - Nasopharyngeal Respiratory Panel (PCR) - Final 08/08/24 14:36 Mucosa - Nasopharyngeal SARS-CoV-2, Influenza & RSV (PCR) - Final 08/08/24 14:25 Wound - Left Foot Skin and Soft Tissue MRSA/MSSA (PCR - Final 08/08/24 14:18 Mucosa - Nose Coronavirus COVID-19 PCR - Final 08/08/24 14:25 Urine Catheter - Alas Streptococcus pneumoniae Antigen (M - Final 08/08/24 14:25 Urine Catheter - Alas Legionella Antigen - Final Physical Exam Const Constitutional Narrative: intubated. afebrile. HEENT head/scalp atraumatic and moist oral mucous membranes Eyes Eyes Narrative: sluggish pupils. no icterus. Neck no lymphadenopathy and supple Extremity Extremity Narrative: no edema Neuro Neuro Narrative: diminished Babinski bilaterally. does not withdraw to noxious stimuli. rigid upper extemities. blinks to eye drops Assessment & Plan Assessment/Plan (1) Acute alteration in mental status: (2) Hyperosmolar hyperglycemic state (HHS): (3) BENJAMIN (acute kidney injury): (4) Acute respiratory failure: PLAN: Plan Acute metabolic encephalopathy Initially presented to ED after being found down unresponsive for unclear duration of time. Initial CT head unremarkable. TSH and ammonia were within normal limits. 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 EEG consistent with severe diffuse encephalopathy without any epileptiform discharges. Began to have increasing nonpurposeful movements on 08/13 requiring initiation of sedation. Per nursing, still has not had any purposeful movements or been able to follow any commands to this point. Discussed with sister at bedside on 08/13, see quick note for further details. CODE STATUS changed to DNR CCA, do not reintubate. Will defer to economics lecturer for SAT/SBT trials moving forward. DW Dr. Wilson, who is recommending a repeat EEG. 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 Emergently intubated in ED given altered mentation. Chest x-ray on admit showed focal infiltrate in left lower lobe concerning for aspiration pneumonia. Infectious workup has been negative. On IV pip/tazo and vancomycin BENJAMIN on CKD stage IV, resolved Nephrology following. Had worsening of kidney function on 08/14, IV Lasix discontinued and will plan to restart home p.o. Lasix on 08/15. Continue to monitor daily BMP and urine output. Hyperosmolar hyperglycemic state, resolved; poorly controlled type 2 diabetes mellitus Glucose 756 with mental status change on admit. Known history of poorly controlled diabetes, last A1c 13.1% in April. Currently on tube feeds, continue basal insulin and corrective insulin every 6 hours and adjust doses as needed. Hypernatremia improved Chronic medical conditions: Obesity class I: BMI 33 on admit. Complicates hospital course, care and prognosis. GERD: Continue PPI. Hypertension: Holding home beta-suresh and LOGAN inhibitor. DVT prophylaxis: Heparin subcu CODE STATUS: DNR CCA, do not reintubate Expected disposition: TBD Charges/Coding Visit Charges Inpatient E&M: 47353 Subs Hosp L3
--- NOTE | 2024-08-15 08:53 | PCM.PN.INT ---
Assessment & Plan Assessment/Plan (1) Acute alteration in mental status: (2) Metabolic acidosis: (3) Hyperosmolar hyperglycemic state (HHS): (4) Aspiration pneumonia: (5) BENJAMIN (acute kidney injury): PLAN: Plan RECOMMENDATIONS: 1. Continue assist-control mode of mechanical ventilation. 2. Continue to hold all sedating medications. 3. Continue basal insulin and continue sliding scale coverage. 4. Continue tube feeding and free water flushes. 5. Continue antimicrobials. 6. Neurology to follow-up on the patient today. 7. Continue appropriate ICU prophylaxis. 8. Ongoing goals of care discussion with the patient's family. IMPRESSIONS: 1. Acute hypoxemic respiratory failure The patient presented to the emergency department after being found down unresponsive of unclear duration. She was emergently intubated as a consequence of the aforementioned. There are clinical concerns for underlying aspiration pneumonia. Therefore, the patient has been placed on appropriate antimicrobials. The patient will be continued on assist-control mode of mechanical ventilation, with a goal to wean FiO2 and PEEP as tolerated to maintain saturations at or above 90%. The patient's underlying mental status continues to be a barrier to successful liberation from invasive mechanical ventilatory support. Will obtain follow-up ABG this morning. 2. Acute metabolic encephalopathy The patient presented with a number of metabolic derangements and concern for HHS in the setting of poorly controlled diabetes mellitus. Initial CT head was unremarkable. TSH and ammonia were within normal limits. 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 EEG was consistent with severe diffuse encephalopathy without any epileptiform discharges. Continue to hold all sedating medications. Recommend neurology follow-up. 3. Hyperosmolar hyperglycemic state Resolved. The patient has a known history of poorly controlled diabetes mellitus. Continue basal and continue sliding scale insulin coverage. 4. Acute kidney injury Improving. Most likely prerenal in the setting of HHS, with concern for general hypovolemia after being found down. Agree with judicious IV fluid resuscitation. CK level, although elevated, is not consistent with rhabdomyolysis. Continue to monitor urine output for now. There is no urgent need for renal replacement therapy at the present time. 5. History of poorly controlled diabetes mellitus/obesity/GERD/neuropathy/hypertension Complicates care, management, recovery and prognosis. Continue to hold the remainder of the patient's home medications. Continue tube feeding and free water flushes as tolerated. CODE STATUS: DNR CCA TIME: 34 minutes of critical care time, independent of procedures, was spent addressing the patient's acute hypoxemic respiratory failure, acute metabolic encephalopathy, HHS, acute kidney injury, review of all data and collaboration with the care team. Subjective Subjective The patient was seen and examined at the bedside this morning. Events from the last 24 hours have been reviewed. The patient is currently afebrile, hemodynamically stable and maintaining appropriate oxygen saturations on assist-control mode of mechanical ventilation with an FiO2 requirement of 21% and PEEP of 5. The patient continues to move all extremities spontaneously, but will not follow any commands. She is not currently on any form of sedation. Despite this, she is able to tolerate spontaneous mode of mechanical ventilation. Her white blood cell count was noted to be 15,000 this morning. Hemoglobin and platelet count are stable. BUN and creatinine are elevated at 60 and 2.38, respectively. I did meet personally with the patient's family this morning regarding overall prognosis and goals of care. The patient remains DNR CCA for now. Although they are considering extubation, they would first like the patient to be reevaluated by neurology. Accordingly, a new consultation has been placed to [facility] neurology for a follow-up evaluation. Objective Data Objective Data The patient's most recent lab work, culture data and imaging studies have all been personally reviewed. 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 Blood culture dated August 08 was positive for Staph epidermidis. Vital Signs: Vital Signs Temp Pulse Resp BP Pulse Ox O2 Del Method O2 Flow Rate 98.9 F 80 19 H 108/55 L 93 Mechanical Ventilator 21 08/15/24 08:00 08/15/24 08:47 08/15/24 08:47 08/15/24 08:00 08/15/24 08:47 08/15/24 08:00 08/14/24 09:00 FiO2 21 08/15/24 08:00 Oxygen Flow Rate (L/min) 21 Oxygen Delivery Method Mechanical Ventilator Weight: 179 lb 3.773 oz Body Mass Index (BMI) 33.8 Intake & Output: Intake and Output for Last 24 Hours 08/13/24 08/14/24 08/15/24 23:59 23:59 23:59 Intake Total 1962.36 / 1965.41 1994.08 / 2011.18 1165.69 / 1165.69 Output Total 2450 / 2450 975 / 1175 600 / 600 Balance -487.64 / -484.59 1019.08 / 836.18 565.69 / 565.69 Lab / Micro Data Attestation: I reviewed the patient's lab results. 08/15/24 03:30 08/15/24 03:30 Labs: Laboratory Results - last 24 hr 08/14/24 05:52: POC Glucose 185 H 08/14/24 13:02: POC Glucose 223 H 08/14/24 17:39: POC Glucose 124 H 08/14/24 22:20: Vancomycin Trough 24.8 H 08/15/24 00:46: POC Glucose 70 L 08/15/24 03:30: WBC 14.9 H, RBC 3.18 L, Hgb 9.1 L, Hct 28.9 L, MCV 90.9, MCH 28.6, MCHC 31.5 L, RDW Std Deviation 46.4 H, RDW Coeff of Steven 14.3, Plt Count 223, MPV 10.9, Immature Gran % (Auto) 1.700 H, Neut % (Auto) 67.5, Lymph % (Auto) 21.8, Monona % (Auto) 6.9, Eos % (Auto) 1.6, Baso % (Auto) 0.5, Absolute Neuts (auto) 10.1 H, Absolute Lymphs (auto) 3.25, Nucleated RBC % 0, Sodium 143, Potassium 3.5, Chloride 112 H, Carbon Dioxide 23.0, Anion Gap 8, BUN 60 H, Creatinine 2.38 H, Estim Creat Clear Calc 22.44, Est GFR (MDRD) Af Amer 26 L, Est GFR (MDRD) Non-Af 22 L, BUN/Creatinine Ratio 25.2 H, Glucose 116 H, Calcium 7.2 L, Total Bilirubin 0.40, AST 96 H, ALT 76 H, Alkaline Phosphatase 113, Total Protein 5.3 L, Albumin 1.8 L, Globulin 3.5, Albumin/Globulin Ratio 0.5 L 08/15/24 06:33: POC Glucose 117 H Micro: Microbiology 08/08/24 11:06 Blood Culture (Wb) - Right Forearm Bacteria Detection (PCR) - Final Staphylococcus epidermidis mecA Resistance Marker 08/08/24 11:06 Blood Culture (Wb) - Right Forearm Blood Culture - Final Staphylococcus epidermidis 08/08/24 10:27 Sputum, Induced/Lukens Gram Stain - Final 08/08/24 10:27 Sputum, Induced/Lukens Respiratory Culture - Final Citrobacter braakii 08/08/24 10:35 Blood Culture (Wb) - Right Forearm Blood Culture - Final Staphylococcus epidermidis 08/08/24 10:20 Urine Catheter - Alas Urine Culture - Final Mixed Gram Positive Organisms 08/08/24 14:36 Mucosa - Nasopharyngeal Respiratory Panel (PCR) - Final 08/08/24 14:36 Mucosa - Nasopharyngeal SARS-CoV-2, Influenza & RSV (PCR) - Final 08/08/24 14:25 Wound - Left Foot Skin and Soft Tissue MRSA/MSSA (PCR - Final 08/08/24 14:18 Mucosa - Nose Coronavirus COVID-19 PCR - Final 08/08/24 14:25 Urine Catheter - Alas Streptococcus pneumoniae Antigen (M - Final 08/08/24 14:25 Urine Catheter - Alas Legionella Antigen - Final ABG Data ABG results: ABG 08/09/24 09:29 Specimen Type ART Sample Site L Radial pH 7.35 Bicarbonate Actual 16.3 L Total CO2 17 Base Excess -9 L O2 Saturation 96 O2 % 50.0 ABG pCO2 29.3 L ABG pO2 83 Slim Test Positive Respiration Rate 16 O2 Delivery Device Adult Vent Vent Mode AC Tidal Volume 450.0 POC PEEP 5 Radiography Diagnostic Testing: Radiology Impression Brain MRI 08/10/24 10:19 IMPRESSION: Findings which are most consistent with 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 Chronically ill in appearance. General Appearance: patient mechanically ventilated HEENT normocephalic and head/scalp atraumatic Mouth: endotracheal tube in place and OG tube in place Teeth and Gingiva: poor dentition Eyes Eyes Narrative: Sluggish pupillary reflex bilaterally. Neck supple General: trachea midline and CVC in place Chest inspection of chest normal Resp Auscultation: diminished lung sounds; Negative for rales, rhonchi or wheezes Cardio regular rate and regular rhythm GI normal to inspection, nondistended, normoactive bowel sounds Extremity no clubbing, cyanosis or edema Skin Skin Narrative: Scattered abrasions over face and trunk Neuro Neuro Narrative: Currently moving extremities spontaneously, but will not follow any commands. The patient does withdrawal to pain. Psych Mood & Affect: flat affect Charges/Coding Procedures Hospitalists Procedures: [id number] Critical Care 1st Hr
[2024-08-15] MEDS: Heparin Injection (Vial) 5,000 UNIT/ML VIAL 5000 UNIT SC ×2 (10:27→20:32)
[2024-08-15] MEDS: Pantoprazole Sodium 40 MG in 0.9% Normal Saline (100mL MB+) 100 ML 330 MG IV ×2 (10:27→20:29)
[2024-08-15] MEDS: Erythromycin Base 1 OPTH.TUBE 1 APPLIC LEFT EYE ×2 (10:27→20:32)
[2024-08-15] MEDS: Chlorhexidine 15 ML PO ×2 (10:27→20:29)
--- NOTE | 2024-08-15 10:28 | NEURO.PNOTE ---
Assessment and Plan: Neuro Assessment/Plan HAIDER PARISI is a 68 F with a past medical history of DM, HTN, CKD IV, who is presenting after being found unresponsive of unknown duration , being evaluated by Teleneurology for persistent encephalopathy. Unclear etiology of why patient was unresponsive but she was found with severe hyperglycemia, hypernatremia, and BENJAMIN suggesting severe dehydration. Blood glucose may have played a role as it had with a prior unresponsive episode, however there is no clear history for this event that this is what happened. Since admission, when patient was completely unresponsive, she has improved and had non-purposeful movements but is not following commands. Initial studies were benign with no evidence of seizure or acute structural changes on imaging. In discussion with family, there was no clear baseline disability that would explain symptoms either. At this time, exam is concerning in that patient does not readily respond to noxious stimulation despite otherwise have full movement in the UE and LE. However, patient could have severe delirium which is affected her ability to particpate in the exam. Her initial studies could have evolved and recommend further evaluation Plan: - recommend repeat MRI Brain and EEG routine - will continue to follow patient Have discussed prognosis with sister - which is unclear at this time. There is no indication that the pt's exam will not continue to improve as it has, however to what extent re improvement is unclear. Patient has expressed wishes not to live as a vegetable per sister. She opens her eyes intermittently but the lack of consistent responsiveness to external stimuli suggests currently she is in a vegetative state. However given her improvement from coma to this state in a relatively short period of time, suggests she likely would continue to improve in mental status. The fact that she is progressing through this state, also suggets there has been some level of damage done although unclear how much and what recover will mean. I personally attended this patient and spent a total time of 45 minutes evaluating this patient including clinical assessment, review of chart, medical history imaging, and determining appropriate treatment and workup. Subject: Neurology Subjective Pt's metabolic abnormalities are being treated. Per primary team, she is constantly fighting with movements of the arms and legs but no clear following of commands or purposeful movements. She has had intermittent fevers a couple days ago that were thought to be from precedex. She has a pneumonia on review of the notes - GNR in the sputum and has been on zosyn and vanc EEG Results Procedure Details EEG Procedure Details: HAIDER PARISI is a 68 year old F with a past medical history of , who presents for evaluation of Electroencephalogram on DATE at TIME Objective Data Objective Data Vital Signs: Vital Signs Temp Pulse Resp BP Pulse Ox O2 Del Method O2 Flow Rate 98.9 F 83 23 H 143/117 H 92 Mechanical Ventilator 21 08/15/24 08:00 08/15/24 10:00 08/15/24 10:00 08/15/24 10:00 08/15/24 10:00 08/15/24 10:00 08/14/24 09:00 FiO2 21 08/15/24 10:00 Oxygen Flow Rate (L/min) 21 Oxygen Delivery Method Mechanical Ventilator Weight: 81.3 kg Body Mass Index (BMI) 33.8 Intake & Output: Intake and Output for Last 24 Hours 08/13/24 08/14/24 08/15/24 23:59 23:59 23:59 Intake Total 1962.36 / 1965.41 1315.69 / 1315.69 Output Total 2450 / 2450 975 / 1175 600 / 600 Balance -487.64 / -484.59 1019.08 / 836.18 715.69 / 715.69 Lab / Micro Data 08/15/24 03:30 08/15/24 03:30 Labs: Laboratory Results - last 24 hr 08/14/24 05:52: POC Glucose 185 H 08/14/24 13:02: POC Glucose 223 H 08/14/24 17:39: POC Glucose 124 H 08/14/24 22:20: Vancomycin Trough 24.8 H 08/15/24 00:46: POC Glucose 70 L 08/15/24 03:30: WBC 14.9 H, RBC 3.18 L, Hgb 9.1 L, Hct 28.9 L, MCV 90.9, MCH 28.6, MCHC 31.5 L, RDW Std Deviation 46.4 H, RDW Coeff of Steven 14.3, Plt Count 223, MPV 10.9, Immature Gran % (Auto) 1.700 H, Neut % (Auto) 67.5, Lymph % (Auto) 21.8, Boundary % (Auto) 6.9, Eos % (Auto) 1.6, Baso % (Auto) 0.5, Absolute Neuts (auto) 10.1 H, Absolute Lymphs (auto) 3.25, Nucleated RBC % 0, Sodium 143, Potassium 3.5, Chloride 112 H, Carbon Dioxide 23.0, Anion Gap 8, BUN 60 H, Creatinine 2.38 H, Estim Creat Clear Calc 22.44, Est GFR (MDRD) Af Amer 26 L, Est GFR (MDRD) Non-Af 22 L, BUN/Creatinine Ratio 25.2 H, Glucose 116 H, Calcium 7.2 L, Total Bilirubin 0.40, AST 96 H, ALT 76 H, Alkaline Phosphatase 113, Total Protein 5.3 L, Albumin 1.8 L, Globulin 3.5, Albumin/Globulin Ratio 0.5 L 08/15/24 06:33: POC Glucose 117 H Micro: Microbiology 08/08/24 11:06 Blood Culture (Wb) - Right Forearm Bacteria Detection (PCR) - Final Staphylococcus epidermidis mecA Resistance Marker 08/08/24 11:06 Blood Culture (Wb) - Right Forearm Blood Culture - Final Staphylococcus epidermidis 08/08/24 10:27 Sputum, Induced/Lukens Gram Stain - Final 08/08/24 10:27 Sputum, Induced/Lukens Respiratory Culture - Final Citrobacter braakii 08/08/24 10:35 Blood Culture (Wb) - Right Forearm Blood Culture - Final Staphylococcus epidermidis 08/08/24 10:20 Urine Catheter - Alas Urine Culture - Final Mixed Gram Positive Organisms 08/08/24 14:36 Mucosa - Nasopharyngeal Respiratory Panel (PCR) - Final 08/08/24 14:36 Mucosa - Nasopharyngeal SARS-CoV-2, Influenza & RSV (PCR) - Final 08/08/24 14:25 Wound - Left Foot Skin and Soft Tissue MRSA/MSSA (PCR - Final 08/08/24 14:18 Mucosa - Nose Coronavirus COVID-19 PCR - Final 08/08/24 14:25 Urine Catheter - Alas Streptococcus pneumoniae Antigen (M - Final 08/08/24 14:25 Urine Catheter - Alas Legionella Antigen - Final Physical Exam Narrative Patient intubated, pupils difficult to evaluate, unclear responsiveness and per nurse and physician at bedside, no clear responsiveness OCC intact albeit slow on the medial movement on L rotation corneal intact briskly +Cough, gag Does not open eyes to voice or nox stim but will open occasionally through exam Nonpurposeful movement in all four extremities, no clear weakness. Some antigravity Increased tone throughout upper extremities b/l per medical team No clear withdraw to nox stim, no triple flexion no clear babinski
[2024-08-15 10:33] LABS: Allen Test Positive; Base Excess -7 mmol/L (-2 to +2); Bicarbonate 18.2 mmol/L (22-26); Blood Gas Specimen Type ART; Mode CPAP/PS; O2 Delivery Device Adult Vent; PEEP 5; PO2 67 mmHG (75-100); SITE L Radial; SO2 93 % (95-99); Total Carbon Dioxide 19 mmol/L; pCO2 31.3 mmHg (35-45); pH 7.37 (7.35-7.45)
--- NOTE | 2024-08-15 11:10 | PCM.PN.REN ---
Subjective Subjective Following for BENJAMIN on CKD. The patient remains obtunded on mechanical ventilator in ICU. No significant changes overnight per my discussion with RN Objective Data Objective Data Vital Signs: Vital Signs Temp Pulse Resp BP Pulse Ox O2 Del Method O2 Flow Rate 98.9 F 83 23 H 125/69 H 93 Mechanical Ventilator 21 08/15/24 08:00 08/15/24 11:00 08/15/24 11:00 08/15/24 11:00 08/15/24 11:00 08/15/24 11:00 08/14/24 09:00 FiO2 21 08/15/24 11:00 Oxygen Flow Rate (L/min) 21 Oxygen Delivery Method Mechanical Ventilator Weight: 81.3 kg Body Mass Index (BMI) 33.8 Intake & Output: Intake and Output for Last 24 Hours 08/13/24 08/14/24 08/15/24 23:59 23:59 23:59 Intake Total 1962.36 / 1965.41 1993. 1425.69 / 1425.69 Output Total 2450 / 2450 975 / 1175 600 / 600 Balance -487.64 / -484.59 1019.08 / 836.18 825.69 / 825.69 Lab / Micro Data 08/16/24 07:50 08/16/24 07:50 Labs: Laboratory Results - last 24 hr 08/14/24 05:52: POC Glucose 185 H 08/14/24 13:02: POC Glucose 223 H 08/14/24 17:39: POC Glucose 124 H 08/14/24 22:20: Vancomycin Trough 24.8 H 08/15/24 00:46: POC Glucose 70 L 08/15/24 03:30: WBC 14.9 H, RBC 3.18 L, Hgb 9.1 L, Hct 28.9 L, MCV 90.9, MCH 28.6, MCHC 31.5 L, RDW Std Deviation 46.4 H, RDW Coeff of Steven 14.3, Plt Count 223, MPV 10.9, Immature Gran % (Auto) 1.700 H, Neut % (Auto) 67.5, Lymph % (Auto) 21.8, Garland % (Auto) 6.9, Eos % (Auto) 1.6, Baso % (Auto) 0.5, Absolute Neuts (auto) 10.1 H, Absolute Lymphs (auto) 3.25, Nucleated RBC % 0, Sodium 143, Potassium 3.5, Chloride 112 H, Carbon Dioxide 23.0, Anion Gap 8, BUN 60 H, Creatinine 2.38 H, Estim Creat Clear Calc 22.44, Est GFR (MDRD) Af Amer 26 L, Est GFR (MDRD) Non-Af 22 L, BUN/Creatinine Ratio 25.2 H, Glucose 116 H, Calcium 7.2 L, Total Bilirubin 0.40, AST 96 H, ALT 76 H, Alkaline Phosphatase 113, Total Protein 5.3 L, Albumin 1.8 L, Globulin 3.5, Albumin/Globulin Ratio 0.5 L 08/15/24 06:33: POC Glucose 117 H Micro: Microbiology 08/08/24 11:06 Blood Culture (Wb) - Right Forearm Bacteria Detection (PCR) - Final Staphylococcus epidermidis mecA Resistance Marker 08/08/24 11:06 Blood Culture (Wb) - Right Forearm Blood Culture - Final Staphylococcus epidermidis 08/08/24 10:27 Sputum, Induced/Lukens Gram Stain - Final 08/08/24 10:27 Sputum, Induced/Lukens Respiratory Culture - Final Citrobacter braakii 08/08/24 10:35 Blood Culture (Wb) - Right Forearm Blood Culture - Final Staphylococcus epidermidis 08/08/24 10:20 Urine Catheter - Alas Urine Culture - Final Mixed Gram Positive Organisms 08/08/24 14:36 Mucosa - Nasopharyngeal Respiratory Panel (PCR) - Final 08/08/24 14:36 Mucosa - Nasopharyngeal SARS-CoV-2, Influenza & RSV (PCR) - Final 08/08/24 14:25 Wound - Left Foot Skin and Soft Tissue MRSA/MSSA (PCR - Final 08/08/24 14:18 Mucosa - Nose Coronavirus COVID-19 PCR - Final 08/08/24 14:25 Urine Catheter - Alas Streptococcus pneumoniae Antigen (M - Final 08/08/24 14:25 Urine Catheter - Alas Legionella Antigen - Final ABG Data ABG results: ABG 08/15/24 10:29 Specimen Type ART Sample Site L Radial pH 7.37 Bicarbonate Actual 18.2 L Total CO2 19 Base Excess -7 L O2 Saturation 93 L O2 % 21.0 ABG pCO2 31.3 L ABG pO2 67 L Slim Test Positive O2 Delivery Device Adult Vent Vent Mode CPAP/PS POC PEEP 5 Physical Exam Narrative General appearance: Ill-appearing, on mechanical ventilator. HEENT: Normocephalic, atraumatic. Intubated. Mucous membrane moist. Cardiovascular: Normal S1, S2. No rubs or murmurs. Lungs: Coarse breath sound anteriorly. Abdomen: Normal bowel sounds, soft, nontender. Extremities: No clubbing, cyanosis or edema. Assessment & Plan Assessment/Plan (1) BENJMAIN (acute kidney injury): (2) CKD (chronic kidney disease) stage 4, GFR 15-29 ml/min: (3) Hypernatremia: PLAN: Plan Impression/Plan: The patient is a 68-year-old female with past history of CKD stage G4, type 2 diabetes mellitus, hypertension, HFrEF (EF 40%), GERD, and hyperlipidemia. The patient was admitted to the hospital on 08/08/2024 after being found down by her family at her home for unknown period of time. On presentation, the patient was found to have hyperosmotic hyperglycemic state, acute kidney injury on chronic kidney disease and metabolic acidosis in addition to altered mental status. Patient was admitted to ICU for treatment of acute metabolic encephalopathy along with acute hypoxic respiratory failure requiring mechanical ventilation. She is being treated for probable aspiration pneumonia. Nephrology is following for BENJAMIN on CKD. Acute kidney injury on chronic kidney disease stage G4. Baseline serum creatinine been around 2.30 to 2.40 mg/dL prior to this admission. Patient likely has underlying diabetic kidney disease. Patient presented to hospital with serum creatinine of 3.64 mg/dL on 08/08/2024. I suspect BENJAMIN secondary to ischemic ATN. Renal function is been fluctuating which is unexpected and likely related to changing volume status. Serum creatinine trended down the last 24 hours from 2.43 mg/dL on 08/14/2024 down to 2.38 mg/dL today on 08/15/2024. Current renal function is close to her usual baseline. Hypernatremia has resolved. No need for further change in treatment from nephrology standpoint. There is no need for kidney replacement therapy. I have low suspicion that encephalopathy is due to uremia at this point. Continue current supportive care, keeping MAP above 65 mmHg. We will continue to monitor renal function, volume status, acid-base and electrolytes. Nephrology plan was discussed with hospitalist, Dr. Mendez.
[2024-08-15 11:16] LABS: Vancomycin, Random Level 19.6 ug/mL (0.0-15.0)
--- NOTE | 2024-08-15 11:32 | PCM.RX.CS ---
Consult Antibiotic Management Pharmacy has been consulted to manage selected antibiotic: Vancomycin Type of Intervention Type of Consult: Follow-up Suspected Infection Suspected Infection: Bacteremia Labs Labs: Sodium 143 mmol/L (136-145) 08/15/24 03:30 Potassium 3.5 mmol/L (3.5-5.1) 08/15/24 03:30 Chloride 112 mmol/L (98-107) H 08/15/24 03:30 Carbon Dioxide 23.0 mmol/L (21.0-32.0) 08/15/24 03:30 Anion Gap 8 (5-15) 08/15/24 03:30 BUN 60 mg/dL (7-18) H 08/15/24 03:30 Creatinine 2.38 mg/dL (0.55-1.02) H 08/15/24 03:30 Est GFR (MDRD) Af Amer 26 mL/min (>60) L 08/15/24 03:30 Est GFR (MDRD) Non-Af 22 mL/min (>60) L 08/15/24 03:30 BUN/Creatinine Ratio 25.2 RATIO (10-20) H 08/15/24 03:30 Glucose 116 mg/dL (74-106) H 08/15/24 03:30 Vancomycin Trough 24.8 ug/mL (5.0-15.0) H 08/14/24 22:20 Random Vancomycin 19.6 ug/mL (0.0-15.0) H 08/15/24 10:35 Microbiology Microbiology: Microbiology 08/08/24 11:06 Blood Culture (Wb) - Right Forearm Bacteria Detection (PCR) - Final Staphylococcus epidermidis mecA Resistance Marker 08/08/24 11:06 Blood Culture (Wb) - Right Forearm Blood Culture - Final Staphylococcus epidermidis 08/08/24 10:27 Sputum, Induced/Lukens Gram Stain - Final 08/08/24 10:27 Sputum, Induced/Lukens Respiratory Culture - Final Citrobacter braakii 08/08/24 10:35 Blood Culture (Wb) - Right Forearm Blood Culture - Final Staphylococcus epidermidis 08/08/24 10:20 Urine Catheter - Alas Urine Culture - Final Mixed Gram Positive Organisms 08/08/24 14:36 Mucosa - Nasopharyngeal Respiratory Panel (PCR) - Final 08/08/24 14:36 Mucosa - Nasopharyngeal SARS-CoV-2, Influenza & RSV (PCR) - Final 08/08/24 14:25 Wound - Left Foot Skin and Soft Tissue MRSA/MSSA (PCR - Final 08/08/24 14:18 Mucosa - Nose Coronavirus COVID-19 PCR - Final 08/08/24 14:25 Urine Catheter - Alas Streptococcus pneumoniae Antigen (M - Final 08/08/24 14:25 Urine Catheter - Alas Legionella Antigen - Final Pharmacy Plan for Drug Dosing Pharmacy Plan for Drug Dosing: VANCOMYCIN LEVEL RECEIVED Current Vancomycin Dose: held (previously 1000mg Q24) Number of Doses Received: 5 Vancomycin Level: 19.6 mg/dL Hours Since Last Dose: 33.5 Renal Function: SCr 2.38 mg/dL, CrCl 22.4 mL/min Renal Function Trend: modest improvement since 08/14 2.43 mg/dL Lab/Micro: MRSE in blood cx Vancomycin Plan/Comments: 33.5 hour random level is now therapeutic at 19.6 mg/dL (goal 15-20). Will restart dosing at 750mg Q24 and get a trough prior to 3rd dose of new regimen. Pending Level: 08/17/24 @ 1130 Pharmacy Service will continue to monitor and adjust dosing as required.
[2024-08-15 12:33] LABS: Bedside Glucose 210 mg/dL (74-106)
[2024-08-15] MEDS: Insulin Lispro 100 UNIT/ML INSULN.PEN SC ×2 (12:33→18:35)
[2024-08-15] MEDS: Insulin Glargine-YFGN 100 UNIT/ML Pen 40 UNIT SC (12:33)
[2024-08-15] MEDS: Vancomycin HCl 750 MG in 0.9% Normal Saline (250mL Bag) 250 ML 250 MG IV (12:41)
[2024-08-15 18:41] LABS: Bedside Glucose 168 mg/dL (74-106)
[2024-08-16] VITALS (36 sets, daily range): BP systolic 99–152; BP diastolic 46–88; PULSE 65–99; RESP 14–26; TEMP 36.7–37.5; O2SAT 93–100; BMI 34.4
[2024-08-16] MEDS: Insulin Lispro 100 UNIT/ML INSULN.PEN SC ×2 (00:04→06:00)
[2024-08-16 00:50] LABS: Bedside Glucose 176 mg/dL (74-106)
[2024-08-16] MEDS: Piperacil/Tazobactam 3.375 GM in 0.9% Normal Saline (50mL MB+) 50 ML IV ×3 (05:59→20:27)
[2024-08-16] MEDS: Nystatin Powder 15gm Bottle 1 APPLIC TOPICAL ×3 (06:01→20:27)
[2024-08-16] MEDS: 0.9% Saline Lock 10 ML Syringe IV (06:05)
[2024-08-16 06:24] LABS: Bedside Glucose 162 mg/dL (74-106)
--- NOTE | 2024-08-16 07:42 | PN.HOSP_ITS ---
Reason for Visit Reason for Visit: Diagnoses Type 2 diabetes mellitus with hyperosmolarity without nonketotic hyperglycemic- hyperosmolar coma ([facility]) (08/08/24) Acidosis, unspecified (08/08/24) Pneumonitis due to inhalation of food and vomit (08/08/24) Acute respiratory failure, unspecified whether with hypoxia or hypercapnia (08/08/24) Rhabdomyolysis (08/08/24) Acute kidney failure, unspecified (08/08/24) Altered mental status, unspecified (08/08/24) Subjective Subjective Still writhing around in bed. Doing nothing purposeful, however. Objective Data Objective Data Vital Signs: Vital Signs Temp Pulse Resp BP Pulse Ox O2 Del Method O2 Flow Rate 37.0 C 83 23 H 120/57 L 98 Mechanical Ventilator 21 08/16/24 04:00 08/16/24 07:02 08/16/24 07:04 08/16/24 07:00 08/16/24 07:02 08/16/24 07:00 08/15/24 17:00 FiO2 21 08/16/24 07:00 Oxygen Flow Rate (L/min) 21 Oxygen Delivery Method Mechanical Ventilator Weight: 82.6 kg Body Mass Index (BMI) 34.4 Intake & Output: Intake and Output for Last 24 Hours 08/14/24 08/15/24 08/16/24 23:59 23:59 23:59 Intake Total 1993. 3150.69 / 3150.69 250 / 250 Output Total 975 / 1175 1250 / 1550 650 / 650 Balance 1019.08 / 836.18 1900.69 / 1600.69 -400 / -400 Lab / Micro Data 08/16/24 07:50 08/16/24 07:50 Labs: Laboratory Results - last 24 hr 08/15/24 10:35: Random Vancomycin 19.6 H 08/15/24 12:10: POC Glucose 210 H 08/15/24 18:22: POC Glucose 168 H 08/16/24 00:01: POC Glucose 176 H 08/16/24 05:59: POC Glucose 162 H Micro: Microbiology 08/08/24 11:06 Blood Culture (Wb) - Right Forearm Bacteria Detection (PCR) - Final Staphylococcus epidermidis mecA Resistance Marker 08/08/24 11:06 Blood Culture (Wb) - Right Forearm Blood Culture - Final Staphylococcus epidermidis 08/08/24 10:27 Sputum, Induced/Lukens Gram Stain - Final 08/08/24 10:27 Sputum, Induced/Lukens Respiratory Culture - Final Citrobacter braakii 08/08/24 10:35 Blood Culture (Wb) - Right Forearm Blood Culture - Final Staphylococcus epidermidis 08/08/24 10:20 Urine Catheter - Alas Urine Culture - Final Mixed Gram Positive Organisms 08/08/24 14:36 Mucosa - Nasopharyngeal Respiratory Panel (PCR) - Final 08/08/24 14:36 Mucosa - Nasopharyngeal SARS-CoV-2, Influenza & RSV (PCR) - Final 08/08/24 14:25 Wound - Left Foot Skin and Soft Tissue MRSA/MSSA (PCR - Final 08/08/24 14:18 Mucosa - Nose Coronavirus COVID-19 PCR - Final 08/08/24 14:25 Urine Catheter - Alas Streptococcus pneumoniae Antigen (M - Final 08/08/24 14:25 Urine Catheter - Alas Legionella Antigen - Final ABG Data ABG results: ABG 08/15/24 10:29 Specimen Type ART Sample Site L Radial pH 7.37 Bicarbonate Actual 18.2 L Total CO2 19 Base Excess -7 L O2 Saturation 93 L O2 % 21.0 ABG pCO2 31.3 L ABG pO2 67 L Slim Test Positive O2 Delivery Device Adult Vent Vent Mode CPAP/PS POC PEEP 5 Physical Exam Const Constitutional Narrative: Intubated and writhing around in bed moving all of her extremities spontaneously but not purposefully. Seen along with nursing as well as the teleneurologist today. Patient is moving all extremities spontaneously. Does not follow commands. Pupils are sluggish bilaterally. No icterus. ET tube and OG tube in place. No effect with Babinski not upgoing nor really downgoing either. Does not follow any commands. General Appearance: uncooperative HEENT head/scalp atraumatic and moist oral mucous membranes Assessment & Plan Assessment/Plan (1) Acute alteration in mental status: (2) Hyperosmolar hyperglycemic state (HHS): (3) BENJAMIN (acute kidney injury): (4) Acute respiratory failure: PLAN: Plan Acute metabolic encephalopathy * Initially presented to ED after being found down unresponsive for unclear duration of time. * Initial CT head unremarkable. TSH and ammonia were within normal limits. 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 EEG consistent with severe diffuse encephalopathy without any epileptiform discharges. * Began to have increasing nonpurposeful movements on 08/13 requiring initiation of sedation. Per nursing, still has not had any purposeful movements or been able to follow any commands to this point. Discussed with sister at bedside on 08/13, see quick note for further details. CODE STATUS changed to DNR CCA, do not reintubate. Will defer to visually impaired teacher for SAT/SBT trials moving forward. * DW Dr. Wilson, who is recommending a repeat EEG. Though there was no documentation of hypoxia, it is highly concerning that she may have anoxic encephalopathy. Also, she recommended a repeat MRI brain. I was in the room while the neurologist discussed with patient's sister I explained that the MRI will help shed light if there is significant irreversible damage though we suspect anoxic encephalopathy is not clear that she had it and also the fact that she had an MRI about a week ago that was normal to see if is any changes. If there is significant changes for the worse and that would be a better prognostic sign that she is not going to fare well but if it is normal it does not necessarily rule that out but she could have some recovery but it be unclear how much she would gain. Acute hypoxemic respiratory failure with concern for aspiration pneumonia * Transport Pilot following as above. * Emergently intubated in ED given altered mentation. * Chest x-ray on admit showed focal infiltrate in left lower lobe concerning for aspiration pneumonia. * Infectious workup has been negative. * On IV pip/tazo and vancomycin BENJAMIN on CKD stage IV, resolved * Nephrology following. * Had worsening of kidney function on 08/14, IV Lasix discontinued and will plan to restart home p.o. Lasix on 08/15. Continue to monitor daily BMP and urine output. Hyperosmolar hyperglycemic state, resolved; poorly controlled type 2 diabetes mellitus * Glucose 756 with mental status change on admit. * Known history of poorly controlled diabetes, last A1c 13.1% in April. Currently on tube feeds, continue basal insulin and corrective insulin every 6 hours and adjust doses as needed. Hypernatremia * improved Chronic medical conditions: * Obesity class I: BMI 33 on admit. Complicates hospital course, care and prognosis. * GERD: Continue PPI. * Hypertension: Holding home beta-suresh and LOGAN inhibitor. Nutrition: on Vital Af 1.2 at 50cc/h DVT prophylaxis: Heparin subcu CODE STATUS: DNR CCA, do not reintubate Expected disposition: TBD Charges/Coding Visit Charges Inpatient E&M: 16488 Subs Hosp L3
--- NOTE | 2024-08-16 07:46 | MRI_ITS ---
INDICATION: encephalopathy, follow up to prev mri 08/10/24, ? anoxic brain injury EXAMINATION: MRI - MR Brain W/O Contrast TECHNIQUE: Multiplanar and multisequence MR images of the brain were obtained. IV Contrast Dosage and Agent: None. COMPARISON: 08/10/2024 MRI. FINDINGS: BRAIN PARENCHYMA: No evidence of an acute infarct. No evidence of acute intracranial hemorrhage. No evidence of a mass. Stable chronic left occipital lobe infarct. CSF SPACES: The ventricles, sulci and subarachnoid cisterns are appropriate for age. VASCULAR SYSTEM: Unremarkable. CALVARIUM AND SKULL BASE: Unremarkable. PARANASAL SINUSES AND MASTOID AIR CELLS: Fluid signal within the bilateral mastoid air cells. Mild pansinus mucosal thickening. ORBITS: The globes, extraocular muscles, optic nerves and retrobulbar fat appear normal. MRI/Brain without Contrast IMPRESSION: 1. No acute intracranial abnormality. 2. Fluid signal in the bilateral mastoid air cells which may represent mastoid edema or mastoiditis. Electronically Signed: Wilfrido Hopkins DO at 7:19 EST ,
[2024-08-16 08:03] LABS: Absolute Lymphocyte Count 1.41 X10^3/uL (0.83-4.51); Absolute Neutrophil Count 12.5 X10^3/uL (2.0-7.7); Basophil# 0.04 X10^3/uL; Basophil% 0.3 % (0-1); Eosinophil# 0.19 X10^3/uL; Eosinophils% 1.2 % (0-5); Hematocrit 28.4 % (37-47); Hemoglobin 9.1 g/dL (12.0-15.0); Lymphocyte # 1.41 X10^3/ul (0.83-4.51); Lymphocyte % 9.2 % (19-41); Mean Corpuscular Hgb 28.7 pg (27.0-32.0); Mean Corpuscular Volume 89.6 fL (81-99); Mean Platelet Vol. 10.7 fl (6.2-12.0); Monocyte# 1.13 X10^3/uL; Monocyte% 7.3 % (0-10); NRBC Flagged by Analyzer 0 % (0-5); Neutrophil # 12.49 X10^3/uL (2.7-7.7); Neutrophil % 81.1 % (47-70); Platelet Count 272 K/mm3 (150-450); RBC Distribution Width CV 13.7 % (11.6-14.6); RBC Distribution Width SD 44.6 fl (35.1-43.9); Red Blood Count 3.17 M/mm3 (4.2-5.4); White Blood Count 15.4 K/mm3 (4.4-11.0)
--- NOTE | 2024-08-16 08:12 | PCM.PN.INT ---
Assessment & Plan Assessment/Plan (1) Acute alteration in mental status: (2) Metabolic acidosis: (3) Hyperosmolar hyperglycemic state (HHS): (4) Aspiration pneumonia: (5) BENJAMIN (acute kidney injury): PLAN: Plan RECOMMENDATIONS: 1. Continue assist-control mode of mechanical ventilation. 2. Continue to hold all sedating medications. 3. Continue basal insulin and continue sliding scale coverage. 4. Plan for follow-up EEG and MRI today. 5. Continue antimicrobials to complete treatment course tomorrow. 6. Continue appropriate ICU prophylaxis. 7. Ongoing goals of care discussion with the patient's family. IMPRESSIONS: 1. Acute hypoxemic respiratory failure The patient presented to the emergency department after being found down unresponsive of unclear duration. She was emergently intubated as a consequence of the aforementioned. There are clinical concerns for underlying aspiration pneumonia. Therefore, the patient has been placed on appropriate antimicrobials. The patient will be continued on assist-control mode of mechanical ventilation, with a goal to wean FiO2 and PEEP as tolerated to maintain saturations at or above 90%. The patient's underlying mental status continues to be a barrier to successful liberation from invasive mechanical ventilatory support. 2. Acute metabolic encephalopathy The patient presented with a number of metabolic derangements and concern for HHS in the setting of poorly controlled diabetes mellitus. Initial CT head was unremarkable. TSH and ammonia were within normal limits. 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 EEG was consistent with severe diffuse encephalopathy without any epileptiform discharges. Continue to hold all sedating medications. Neurology is currently following with recommendations to perform repeat EEG today and obtain follow-up MRI. 3. Hyperosmolar hyperglycemic state Resolved. The patient has a known history of poorly controlled diabetes mellitus. Continue basal and continue sliding scale insulin coverage. 4. Acute kidney injury Improving. Most likely prerenal in the setting of HHS, with concern for general hypovolemia after being found down. Agree with judicious IV fluid resuscitation. CK level, although elevated, is not consistent with rhabdomyolysis. Continue to monitor urine output for now. There is no urgent need for renal replacement therapy at the present time. 5. History of poorly controlled diabetes mellitus/obesity/GERD/neuropathy/hypertension Complicates care, management, recovery and prognosis. Continue to hold the remainder of the patient's home medications. CODE STATUS: DNR CCA TIME: 33 minutes of critical care time, independent of procedures, was spent addressing the patient's acute hypoxemic respiratory failure, acute metabolic encephalopathy, HHS, acute kidney injury, review of all data and collaboration with the care team. Subjective Subjective The patient was seen and examined at the bedside this morning. Events from the last 24 hours have been reviewed. The patient remains afebrile hemodynamically stable. She continues to tolerate pressure support throughout the day, with full ventilatory support nightly. The patient continues to move all extremities spontaneously, but is still not able to follow any simple commands. Repeat EEG is currently underway. There are tentative plans for repeat MRI this afternoon. White count is elevated at 15,000 with a hemoglobin of 9.1 g/dL. Potassium is low at 3.4 with a creatinine of 1.9. The patient has been tolerant of tube feeding. Objective Data Objective Data The patient's most recent lab work, culture data and imaging studies have all been personally reviewed. 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 Blood culture dated August 08 was positive for Staph epidermidis. Vital Signs: Vital Signs Temp Pulse Resp BP Pulse Ox O2 Del Method O2 Flow Rate 98.6 F 83 23 H 120/57 L 98 Mechanical Ventilator 21 08/16/24 04:00 08/16/24 07:02 08/16/24 07:04 08/16/24 07:00 08/16/24 07:02 08/16/24 07:00 08/15/24 17:00 FiO2 21 08/16/24 07:00 Oxygen Flow Rate (L/min) 21 Oxygen Delivery Method Mechanical Ventilator Weight: 182 lb 1.629 oz Body Mass Index (BMI) 34.4 Intake & Output: Intake and Output for Last 24 Hours 08/14/24 08/15/24 08/16/24 23:59 23:59 23:59 Intake Total 1993. 3150.69 / 3150.69 250 / 250 Output Total 975 / 1175 1250 / 1550 650 / 650 Balance 1019.08 / 836.18 1900.69 / 1600.69 -400 / -400 Lab / Micro Data Attestation: I reviewed the patient's lab results. 08/16/24 07:50 08/16/24 07:50 Labs: Laboratory Results - last 24 hr 08/15/24 10:35: Random Vancomycin 19.6 H 12/09/24 12:10: POC Glucose 210 H 08/15/24 18:22: POC Glucose 168 H 08/16/24 00:01: POC Glucose 176 H 08/16/24 05:59: POC Glucose 162 H 08/16/24 07:50: WBC 15.4 H, RBC 3.17 L, Hgb 9.1 L, Hct 28.4 L, MCV 89.6, MCH 28.7, MCHC 32.0, RDW Std Deviation 44.6 H, RDW Coeff of Steven 13.7, Plt Count 272, MPV 10.7, Immature Gran % (Auto) 0.900, Neut % (Auto) 81.1 H, Lymph % (Auto) 9.2 L, Wheeler % (Auto) 7.3, Eos % (Auto) 1.2, Baso % (Auto) 0.3, Absolute Neuts (auto) 12.5 H, Absolute Lymphs (auto) 1.41, Nucleated RBC % 0 Micro: Microbiology 08/08/24 11:06 Blood Culture (Wb) - Right Forearm Bacteria Detection (PCR) - Final Staphylococcus epidermidis mecA Resistance Marker 08/08/24 11:06 Blood Culture (Wb) - Right Forearm Blood Culture - Final Staphylococcus epidermidis 08/08/24 10:27 Sputum, Induced/Lukens Gram Stain - Final 08/08/24 10:27 Sputum, Induced/Lukens Respiratory Culture - Final Citrobacter braakii 08/08/24 10:35 Blood Culture (Wb) - Right Forearm Blood Culture - Final Staphylococcus epidermidis 08/08/24 10:20 Urine Catheter - Alas Urine Culture - Final Mixed Gram Positive Organisms 08/08/24 14:36 Mucosa - Nasopharyngeal Respiratory Panel (PCR) - Final 08/08/24 14:36 Mucosa - Nasopharyngeal SARS-CoV-2, Influenza & RSV (PCR) - Final 08/08/24 14:25 Wound - Left Foot Skin and Soft Tissue MRSA/MSSA (PCR - Final 08/08/24 14:18 Mucosa - Nose Coronavirus COVID-19 PCR - Final 08/08/24 14:25 Urine Catheter - Alas Streptococcus pneumoniae Antigen (M - Final 08/08/24 14:25 Urine Catheter - Alas Legionella Antigen - Final ABG Data ABG results: ABG 08/15/24 10:29 Specimen Type ART Sample Site L Radial pH 7.37 Bicarbonate Actual 18.2 L Total CO2 19 Base Excess -7 L O2 Saturation 93 L O2 % 21.0 ABG pCO2 31.3 L ABG pO2 67 L Slim Test Positive O2 Delivery Device Adult Vent Vent Mode CPAP/PS POC PEEP 5 Radiography Diagnostic Testing: Radiology Impression Brain MRI 08/10/24 10:19 IMPRESSION: Findings which are most consistent with 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 Incidental finding of diffuse pansinusitis and bilateral mastoid sinus disease likely chronic Electronically Signed: Wilfrido Xavier MD at 16:21 EST Reading Location ID and State: [facility] / [place] Tel , Service support , Physical Exam Const Constitutional Narrative: Remains intubated and mechanically ventilated. Chronically ill in appearance. Tolerating spontaneous mode of mechanical ventilation currently. General Appearance: patient mechanically ventilated HEENT normocephalic and head/scalp atraumatic Mouth: endotracheal tube in place and OG tube in place Teeth and Gingiva: poor dentition Eyes Eyes Narrative: Sluggish pupillary reflex bilaterally. Neck supple General: trachea midline and CVC in place Chest inspection of chest normal Resp Auscultation: diminished lung sounds; Negative for rales, rhonchi or wheezes Cardio regular rate and regular rhythm GI normal to inspection, nondistended, normoactive bowel sounds Extremity no clubbing, cyanosis or edema Skin Skin Narrative: Scattered abrasions over face and trunk Neuro Neuro Narrative: Currently moving extremities spontaneously, but will not follow any commands. The patient does withdrawal to pain. Psych Mood & Affect: flat affect Charges/Coding Procedures Hospitalists Procedures: 09322 Critical Care 1st Hr
[2024-08-16] MEDS: Chlorhexidine 15 ML PO ×2 (08:17→20:26)
[2024-08-16] MEDS: Erythromycin Base 1 OPTH.TUBE 1 APPLIC LEFT EYE ×2 (08:17→20:27)
[2024-08-16] MEDS: Heparin Injection (Vial) 5,000 UNIT/ML VIAL 5000 UNIT SC ×2 (08:18→20:43)
[2024-08-16] MEDS: Insulin Glargine-YFGN 100 UNIT/ML Pen 40 UNIT SC (08:18)
[2024-08-16] MEDS: CHLORHEXIDINE GLUC 2% CLOTH 1 EACH TOWELETTE TOPICAL (08:18)
[2024-08-16 08:30] LABS: Anion Gap 7 (5-15); BUN 50 mg/dL (7-18); BUN/Creat Ratio 25.1 RATIO (10-20); Calcium,Total 7.8 mg/dL (8.5-10.1); Chloride 112 mmol/L (98-107); Creatinine, Serum 1.99 mg/dL (0.55-1.02); EST Glomerular Filtration Rate 26 mL/min (>60); Est Glom Filt Rate - Afr Amer 32 mL/min (>60); Estimated Creatinine Clearance 26.36 ml/min; Glucose 172 mg/dL (74-106); Potassium 3.4 mmol/L (3.5-5.1); Sodium Level 141 mmol/L (136-145)
[2024-08-16] MEDS: Pantoprazole Sodium 40 MG in 0.9% Normal Saline (100mL MB+) 100 ML 330 MG IV ×2 (09:41→20:24)
--- NOTE | 2024-08-16 09:49 | CPS ---
EEG competed by this RT. Patient extremely difficult to get hooked up to EEG. Patient consistently moving throughout procedure. EKGs leads for EEG applied multiple times. No sedation for EEG per Dr.Brown LINARES. No photic or HV able to be completed due to patient not able to follow commands. This RT texted above to [facility] EEG Physician.
[2024-08-16] MEDS: Potassium Chloride 20mEq/100mL 20 MEQ/100 ML IV.SOLN. 100 MEQ IV BOLUS ×2 (10:06→11:19)
[2024-08-16 11:42] LABS: Bedside Glucose 140 mg/dL (74-106)
--- NOTE | 2024-08-16 12:46 | NEURO.PNOTE ---
Assessment and Plan: Neuro Assessment/Plan HAIDER PARISI is a 68 F with a past medical history of DM, HTN, CKD IV, who is presenting after being found unresponsive of unknown duration , being evaluated by Teleneurology for persistent encephalopathy. Unclear etiology of why patient was unresponsive but she was found with severe hyperglycemia, hypernatremia, and BENJAMIN suggesting severe dehydration. Blood glucose may have played a role as it had with a prior unresponsive episode, however there is no clear history for this event that this is what happened. Since admission, when patient was completely unresponsive, she has improved and had non-purposeful movements but is not following commands. Initial studies were benign with no evidence of seizure or acute structural changes on imaging. In discussion with family, there was no clear baseline disability that would explain symptoms either. At this time, exam is concerning in that patient does not readily respond to noxious stimulation despite otherwise have full movement in the UE and LE. However, patient could have severe delirium which is affected her ability to particpate in the exam. Her initial studies could have evolved and recommend further evaluation Plan: - pending repeat EEG - MRI Brain with no significant worsening - will continue to follow patient Have discussed prognosis with sister - which is unclear at this time. There is no indication that the pt's exam will not continue to improve as it has, however to what extent re improvement is unclear. Patient has expressed wishes not to live as a vegetable per sister. She opens her eyes intermittently but the lack of consistent responsiveness to external stimuli suggests currently she is in a vegetative state. However given her improvement from coma to this state in a relatively short period of time, suggests she likely would continue to improve in mental status. There is probably some damage but may continue I personally attended this patient and spent a total time of 30 minutes evaluating this patient including clinical assessment, review of chart, medical history imaging, and determining appropriate treatment and workup. Subject: Neurology Subjective Patient continues to move nonpurposefully. She has no restraints and yet does not pull at ETT. EEG Results Procedure Details EEG Procedure Details: HAIDER PARISI is a 68 year old F with a past medical history of , who presents for evaluation of Electroencephalogram on DATE at TIME Objective Data Objective Data Vital Signs: Vital Signs Temp Pulse Resp BP Pulse Ox O2 Del Method O2 Flow Rate 98.0 F 85 14 133/53 H 95 Mechanical Ventilator 21 08/16/24 09:00 08/16/24 11:00 08/16/24 11:00 08/16/24 11:00 08/16/24 11:00 08/16/24 11:41 08/15/24 17:00 FiO2 21 08/16/24 11:41 Oxygen Flow Rate (L/min) 21 Oxygen Delivery Method Mechanical Ventilator Weight: 82.6 kg Body Mass Index (BMI) 34.4 Intake & Output: Intake and Output for Last 24 Hours 08/14/24 08/15/24 08/16/24 23:59 23:59 23:59 Intake Total 1994. 3150.69 / 3150.69 1335 / 1335 Output Total 975 / 1175 1250 / 1550 1200 / 1200 Balance 1019.08 / 836.18 1900.69 / 1600.69 135 / 135 Lab / Micro Data 08/16/24 07:50 08/16/24 07:50 Labs: Laboratory Results - last 24 hr 08/15/24 18:22: POC Glucose 168 H 08/16/24 00:01: POC Glucose 176 H 08/16/24 05:59: POC Glucose 162 H 08/16/24 07:50: WBC 15.4 H, RBC 3.17 L, Hgb 9.1 L, Hct 28.4 L, MCV 89.6, MCH 28.7, MCHC 32.0, RDW Std Deviation 44.6 H, RDW Coeff of Steven 13.7, Plt Count 272, MPV 10.7, Immature Gran % (Auto) 0.900, Neut % (Auto) 81.1 H, Lymph % (Auto) 9.2 L, Hinds % (Auto) 7.3, Eos % (Auto) 1.2, Baso % (Auto) 0.3, Absolute Neuts (auto) 12.5 H, Absolute Lymphs (auto) 1.41, Nucleated RBC % 0, Sodium 141, Potassium 3.4 L, Chloride 112 H, Carbon Dioxide 22.0, Anion Gap 7, BUN 50 H, Creatinine 1.99 H, Estim Creat Clear Calc 26.36, Est GFR (MDRD) Af Amer 32 L, Est GFR (MDRD) Non-Af 26 L, BUN/Creatinine Ratio 25.1 H, Glucose 172 H, Calcium 7.8 L 08/16/24 11:24: POC Glucose 140 H Micro: Microbiology 08/08/24 11:06 Blood Culture (Wb) - Right Forearm Bacteria Detection (PCR) - Final Staphylococcus epidermidis mecA Resistance Marker 08/08/24 11:06 Blood Culture (Wb) - Right Forearm Blood Culture - Final Staphylococcus epidermidis 08/08/24 10:27 Sputum, Induced/Lukens Gram Stain - Final 08/08/24 10:27 Sputum, Induced/Lukens Respiratory Culture - Final Citrobacter braakii 08/08/24 10:35 Blood Culture (Wb) - Right Forearm Blood Culture - Final Staphylococcus epidermidis 08/08/24 10:20 Urine Catheter - Alas Urine Culture - Final Mixed Gram Positive Organisms 08/08/24 14:36 Mucosa - Nasopharyngeal Respiratory Panel (PCR) - Final 08/08/24 14:36 Mucosa - Nasopharyngeal SARS-CoV-2, Influenza & RSV (PCR) - Final 08/08/24 14:25 Wound - Left Foot Skin and Soft Tissue MRSA/MSSA (PCR - Final 08/08/24 14:18 Mucosa - Nose Coronavirus COVID-19 PCR - Final 08/08/24 14:25 Urine Catheter - Alas Streptococcus pneumoniae Antigen (M - Final 08/08/24 14:25 Urine Catheter - Alas Legionella Antigen - Final Physical Exam Narrative Patient intubated, pupils R is 2mm and brisk, L is 2mm but difficult to assess +Cough, gag Does not open eyes to voice or nox stim but will open occasionally through exam Nonpurposeful movement in all four extremities, no clear weakness. Some antigravity Increased tone throughout upper extremities b/l per medical team No clear withdraw to nox stim, no triple flexion no clear babinski
[2024-08-16] MEDS: Vancomycin HCl 750 MG in 0.9% Normal Saline (250mL Bag) 250 ML 250 MG IV (13:33)
[2024-08-16] MEDS: Propofol 10MG/Ml 1,000 MG/100 ML Bottle 5 MG CONT INF (14:35)
--- NOTE | 2024-08-16 16:04 | PCM.PN.REN ---
Subjective Subjective Following for BENJAMIN on CKD. The patient remains on ventilator. She remains encephalopathic and does not follow commands. Cannot do ROS. Objective Data Objective Data Vital Signs: Vital Signs Temp Pulse Resp BP Pulse Ox O2 Del Method O2 Flow Rate 98.5 F 67 16 129/58 H 100 Mechanical Ventilator 21 08/16/24 12:00 08/16/24 15:28 08/16/24 15:28 08/16/24 15:28 08/16/24 15:28 08/16/24 15:28 08/15/24 17:00 FiO2 21 08/16/24 14:00 Oxygen Flow Rate (L/min) 21 Oxygen Delivery Method Mechanical Ventilator Weight: 82.6 kg Body Mass Index (BMI) 34.4 Intake & Output: Intake and Output for Last 24 Hours 08/14/24 08/15/24 08/16/24 23:59 23:59 23:59 Intake Total 1994. 3150.69 / 3150.69 1600 / 1600 Output Total 975 / 1175 1250 / 1550 1200 / 1200 Balance 1019.08 / 836.18 1900.69 / 1600.69 400 / 400 Lab / Micro Data 08/16/24 07:50 08/16/24 07:50 Labs: Laboratory Results - last 24 hr 08/15/24 18:22: POC Glucose 168 H 08/16/24 00:01: POC Glucose 176 H 08/16/24 05:59: POC Glucose 162 H 08/16/24 07:50: WBC 15.4 H, RBC 3.17 L, Hgb 9.1 L, Hct 28.4 L, MCV 89.6, MCH 28.7, MCHC 32.0, RDW Std Deviation 44.6 H, RDW Coeff of Steven 13.7, Plt Count 272, MPV 10.7, Immature Gran % (Auto) 0.900, Neut % (Auto) 81.1 H, Lymph % (Auto) 9.2 L, [place] % (Auto) 7.3, Eos % (Auto) 1.2, Baso % (Auto) 0.3, Absolute Neuts (auto) 12.5 H, Absolute Lymphs (auto) 1.41, Nucleated RBC % 0, Sodium 141, Potassium 3.4 L, Chloride 112 H, Carbon Dioxide 22.0, Anion Gap 7, BUN 50 H, Creatinine 1.99 H, Estim Creat Clear Calc 26.36, Est GFR (MDRD) Af Amer 32 L, Est GFR (MDRD) Non-Af 26 L, BUN/Creatinine Ratio 25.1 H, Glucose 172 H, Calcium 7.8 L 08/16/24 11:24: POC Glucose 140 H Micro: Microbiology 08/14/24 15:20 Blood Culture (Wb) - Wrist Blood Culture - Preliminary No growth in 48 hours. 08/14/24 15:20 Blood Culture (Wb) - Pic Blood Culture - Preliminary No growth in 48 hours. 08/08/24 11:06 Blood Culture (Wb) - Right Forearm Bacteria Detection (PCR) - Final Staphylococcus epidermidis mecA Resistance Marker 08/08/24 11:06 Blood Culture (Wb) - Right Forearm Blood Culture - Final Staphylococcus epidermidis 08/08/24 10:27 Sputum, Induced/Lukens Gram Stain - Final 08/08/24 10:27 Sputum, Induced/Lukens Respiratory Culture - Final Citrobacter braakii 08/08/24 10:35 Blood Culture (Wb) - Right Forearm Blood Culture - Final Staphylococcus epidermidis 08/08/24 10:20 Urine Catheter - Alas Urine Culture - Final Mixed Gram Positive Organisms 08/08/24 14:36 Mucosa - Nasopharyngeal Respiratory Panel (PCR) - Final 08/08/24 14:36 Mucosa - Nasopharyngeal SARS-CoV-2, Influenza & RSV (PCR) - Final 08/08/24 14:25 Wound - Left Foot Skin and Soft Tissue MRSA/MSSA (PCR - Final 08/08/24 14:18 Mucosa - Nose Coronavirus COVID-19 PCR - Final 08/08/24 14:25 Urine Catheter - Alas Streptococcus pneumoniae Antigen (M - Final 08/08/24 14:25 Urine Catheter - Alas Legionella Antigen - Final Physical Exam Narrative General appearance: Ill-appearing, on mechanical ventilator. HEENT: Normocephalic, atraumatic. Intubated. Mucous membrane moist. Cardiovascular: Normal S1, S2. No rubs or murmurs. Lungs: Coarse breath sound anteriorly. Abdomen: Normal bowel sounds, soft, nontender. Extremities: No clubbing, cyanosis or edema. Const General Appearance: ill appearing and patient mechanically ventilated Orientation / Consciousness: oriented to person HEENT normocephalic Neck no lymphadenopathy Resp clear to auscultation bilaterally Auscultation: rhonchi throughout Cardio regular rate GI non-distended Auscultation: normoactive bowel sounds Palpation: soft Bladder / Kidney Exam: catheter in place Extremity General Extremity: edema bilateral Skin no rashes or lesions noted Neuro Sensorium / Orientation: sedated on vent Assessment & Plan Assessment/Plan (1) BENJAMIN (acute kidney injury): (2) CKD (chronic kidney disease) stage 4, GFR 15-29 ml/min: (3) Hypernatremia: PLAN: Plan Impression/Plan: The patient is a 68-year-old female with past history of CKD stage G4, type 2 diabetes mellitus, hypertension, HFrEF (EF 40%), GERD, and hyperlipidemia. The patient was admitted to the hospital on 08/08/2024 after being found down by her family at her home for unknown period of time. On presentation, the patient was found to have hyperosmotic hyperglycemic state, acute kidney injury on chronic kidney disease and metabolic acidosis in addition to altered mental status. Patient was admitted to ICU for treatment of acute metabolic encephalopathy along with acute hypoxic respiratory failure requiring mechanical ventilation. She is being treated for probable aspiration pneumonia. Nephrology is following for BENJAMIN on CKD. Acute kidney injury on chronic kidney disease stage G4. Baseline serum creatinine been around 2.30 to 2.40 mg/dL prior to this admission. Patient likely has underlying diabetic kidney disease. Patient presented to hospital with serum creatinine of 3.64 mg/dL on 08/08/2024. I suspect BENJAMIN secondary to ischemic ATN. Renal function is been fluctuating which is unexpected and likely related to changing volume status. Serum creatinine trended down the last 48 hours from 2.43 mg/dL on 08/14/2024 down to 1.99 mg/dL today on 08/16/2024. Current renal function is below her usual baseline. However, the patient is currently off of losartan which she was taking at home. No need for further change in treatment from nephrology standpoint. There is no need for kidney replacement therapy. I have low suspicion that encephalopathy is due to uremia at this point. Continue current supportive care, keeping MAP above 65 mmHg. I would not yet restart ARB since BP has been below 130/80 for the most part. We will continue to monitor renal function, volume status, acid-base and electrolytes. Hypertension. BP is controlled without antihypertensives. Prior to admission, the patient was on losartan, carvedilol, finerenone, and amlodipine. Continue to hold antihypertensives for now since BP is controlled. Hypernatremia. The patient was transiently hypernatremic with serum sodium as high as 152 mmol/L on 08/09/2024. Hyponatremia has resolved with current supportive care. She is receiving water flush with tube feed. Nephrology plan was discussed with hospitalist, Dr. Mendez.
[2024-08-16 16:28] LABS: Bedside Glucose 121 mg/dL (74-106)
[2024-08-16] MEDS: Menthol/Lanolin/Calamine/Znox 113 GM Tube 1 APPLIC TOPICAL (20:26)
[2024-08-17] VITALS (18 sets, daily range): BP systolic 118–153; BP diastolic 50–85; PULSE 68–97; RESP 12–22; TEMP 36.1–37; O2SAT 96–100; BMI 34.1
[2024-08-17] MEDS: Insulin Lispro 100 UNIT/ML INSULN.PEN SC (00:34)
[2024-08-17 00:54] LABS: Bedside Glucose 150 mg/dL (74-106)
--- NOTE | 2024-08-17 02:08 | PCM.HOSP.N ---
Hospitalist Note Patient with frequent movement in the bed, nonpurposeful which from discussion with nursing staff has been intermittent and patient is received intermittent sedation however per their report the capacity management specialist Dr. Rose prefers to avoid any persistent ongoing sedation therefore we will trial Ativan x 1 IV dose now. Would like to avoid restraints if able given patient will continue to pull.
[2024-08-17] MEDS: LORazepam 2 MG/ML Syringe 1 MG IV (03:16)
[2024-08-17] MEDS: Nystatin Powder 15gm Bottle 1 APPLIC TOPICAL ×3 (05:12→23:16)
[2024-08-17] MEDS: Piperacil/Tazobactam 3.375 GM in 0.9% Normal Saline (50mL MB+) 50 ML IV ×3 (05:22→23:19)
[2024-08-17 05:43] LABS: Bedside Glucose 81 mg/dL (74-106)
--- NOTE | 2024-08-17 05:54 | PCM.PN.INT ---
Assessment & Plan Assessment/Plan (1) Acute alteration in mental status: (2) Metabolic acidosis: (3) Hyperosmolar hyperglycemic state (HHS): (4) Aspiration pneumonia: (5) BENJAMIN (acute kidney injury): PLAN: Plan RECOMMENDATIONS: 1. Proceed with extubation, without plans for reintubation, if the patient does not do well from a respiratory perspective. 2. Continue to hold all sedating medications. 3. Antimicrobials to be completed today. 4. Continue basal and sliding scale insulin coverage. 5. Await finalized results of EEG and MRI. Neurology to provide follow-up today as well. 6. Continue appropriate ICU prophylaxis. 7. Ongoing goals of care discussion with the patient's family. IMPRESSIONS: 1. Acute hypoxemic respiratory failure The patient presented to the emergency department after being found down unresponsive of unclear duration. She was emergently intubated as a consequence of the aforementioned. There are clinical concerns for underlying aspiration pneumonia. Therefore, the patient has been placed on appropriate antimicrobials. The patient has been maintained on assist-control mode of mechanical ventilation. Her FiO2 requirements are minimal. Her underlying mental status has been a barrier to her being successfully extubated. Following a discussion with the patient's family this morning, the plan is to proceed with extubation, without plans for reintubation if the patient does not do well. 2. Acute metabolic encephalopathy The patient presented with a number of metabolic derangements and concern for HHS in the setting of poorly controlled diabetes mellitus. Initial CT head was unremarkable. TSH and ammonia were within normal limits. 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 EEG was consistent with severe diffuse encephalopathy without any epileptiform discharges. Continue to hold all sedating medications. Neurology is currently following. Repeat EEG and MRI were completed yesterday, with final reads pending. 3. Hyperosmolar hyperglycemic state Resolved. The patient has a known history of poorly controlled diabetes mellitus. Continue basal and continue sliding scale insulin coverage. 4. Acute kidney injury Improving. Most likely prerenal in the setting of HHS, with concern for general hypovolemia after being found down. Agree with judicious IV fluid resuscitation. CK level, although elevated, is not consistent with rhabdomyolysis. Continue to monitor urine output for now. There is no urgent need for renal replacement therapy at the present time. 5. History of poorly controlled diabetes mellitus/obesity/GERD/neuropathy/hypertension Complicates care, management, recovery and prognosis. Continue to hold the remainder of the patient's home medications. CODE STATUS: DNR CCA without intubation TIME: 32 minutes of critical care time, independent of procedures, was spent addressing the patient's acute hypoxemic respiratory failure, acute metabolic encephalopathy, HHS, acute kidney injury, review of all data and collaboration with the care team. Subjective Subjective The patient was seen and examined at the bedside this morning. Events from the last 24 hours have been reviewed. The patient is currently afebrile, hemodynamically stable and maintaining appropriate oxygen saturations on pressure support with an FiO2 requirement of 21%. The patient remains largely unchanged from previous. She continues to remain restless in bed, moving all extremities spontaneously, but will not follow any commands purposefully. Repeat EEG and MRI were completed yesterday. Neurology is following to assist with prognostication. I did have a venkat discussion with the patient's family this morning at the bedside regarding overall prognosis and goals of care. At this time, they are comfortable with proceeding with extubation, without plans to reintubate if the patient does not do well from a respiratory perspective. Otherwise, the remainder of the supportive care will remain unchanged. Objective Data Objective Data The patient's most recent lab work, culture data and imaging studies have all been personally reviewed. Preliminary sputum culture is demonstrating growth of a gram-negative jorge, lactose hook and eye attacher. Blood culture dated August 08 was positive for Staph epidermidis. Vital Signs: Vital Signs Temp Pulse Resp BP Pulse Ox O2 Del Method O2 Flow Rate 98.6 F 73 17 127/50 H 99 Mechanical Ventilator 08/17/24 00:00 08/17/24 04:50 08/17/24 04:50 08/17/24 04:00 08/17/24 04:50 08/17/24 04:00 08/15/24 17:00 FiO2 21 08/17/24 04:50 Oxygen Flow Rate (L/min) 21 Oxygen Delivery Method Mechanical Ventilator Weight: 180 lb 8.937 oz Body Mass Index (BMI) 34.1 Intake & Output: Intake and Output for Last 24 Hours 08/15/24 08/16/24 08/17/24 23:59 23:59 23:59 Intake Total 3150.69 / 3150.69 2935.00 / 2935.00 50 / 50 Output Total 1250 / 1550 1850 / 1850 Balance 1900.69 / 1600.69 1085.00 / 1085.00 50 / 50 Lab / Micro Data Attestation: I reviewed the patient's lab results. 08/16/24 07:50 08/17/24 05:24 Labs: Laboratory Results - last 24 hr 08/16/24 05:59: POC Glucose 162 H 08/16/24 07:50: WBC 15.4 H, RBC 3.17 L, Hgb 9.1 L, Hct 28.4 L, MCV 89.6, MCH 28.7, MCHC 32.0, RDW Std Deviation 44.6 H, RDW Coeff of Steven 13.7, Plt Count 272, MPV 10.7, Immature Gran % (Auto) 0.900, Neut % (Auto) 81.1 H, Lymph % (Auto) 9.2 L, [place] % (Auto) 7.3, Eos % (Auto) 1.2, Baso % (Auto) 0.3, Absolute Neuts (auto) 12.5 H, Absolute Lymphs (auto) 1.41, Nucleated RBC % 0, Sodium 141, Potassium 3.4 L, Chloride 112 H, Carbon Dioxide 22.0, Anion Gap 7, BUN 50 H, Creatinine 1.99 H, Estim Creat Clear Calc 26.36, Est GFR (MDRD) Af Amer 32 L, Est GFR (MDRD) Non-Af 26 L, BUN/Creatinine Ratio 25.1 H, Glucose 172 H, Calcium 7.8 L 08/16/24 11:24: POC Glucose 140 H 08/16/24 16:11: POC Glucose 121 H 08/17/24 00:34: POC Glucose 150 H 08/17/24 05:25: POC Glucose 81 Micro: Microbiology 08/14/24 15:20 Blood Culture (Wb) - Wrist Blood Culture - Preliminary No growth in 48 hours. 08/14/24 15:20 Blood Culture (Wb) - Pic Blood Culture - Preliminary No growth in 48 hours. 08/08/24 11:06 Blood Culture (Wb) - Right Forearm Bacteria Detection (PCR) - Final Staphylococcus epidermidis mecA Resistance Marker 08/08/24 11:06 Blood Culture (Wb) - Right Forearm Blood Culture - Final Staphylococcus epidermidis 08/08/24 10:27 Sputum, Induced/Lukens Gram Stain - Final 08/08/24 10:27 Sputum, Induced/Lukens Respiratory Culture - Final Citrobacter braakii 08/08/24 10:35 Blood Culture (Wb) - Right Forearm Blood Culture - Final Staphylococcus epidermidis 08/08/24 10:20 Urine Catheter - Alas Urine Culture - Final Mixed Gram Positive Organisms 08/08/24 14:36 Mucosa - Nasopharyngeal Respiratory Panel (PCR) - Final 08/08/24 14:36 Mucosa - Nasopharyngeal SARS-CoV-2, Influenza & RSV (PCR) - Final 08/08/24 14:25 Wound - Left Foot Skin and Soft Tissue MRSA/MSSA (PCR - Final 08/08/24 14:18 Mucosa - Nose Coronavirus COVID-19 PCR - Final 08/08/24 14:25 Urine Catheter - Alas Streptococcus pneumoniae Antigen (M - Final 08/08/24 14:25 Urine Catheter - Alas Legionella Antigen - Final ABG Data ABG results: ABG 08/15/24 10:29 Specimen Type ART Sample Site L Radial pH 7.37 Bicarbonate Actual 18.2 L Total CO2 19 Base Excess -7 L O2 Saturation 93 L O2 % 21.0 ABG pCO2 31.3 L ABG pO2 67 L Slim Test Positive O2 Delivery Device Adult Vent Vent Mode CPAP/PS POC PEEP 5 Radiography Diagnostic Testing: Radiology Impression Brain MRI 08/10/24 10:19 IMPRESSION: Findings which are most 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 Chronically ill in appearance. Tolerating spontaneous mode of mechanical ventilation currently. General Appearance: patient mechanically ventilated HEENT normocephalic and head/scalp atraumatic Mouth: endotracheal tube in place and OG tube in place Teeth and Gingiva: poor dentition Eyes Eyes Narrative: Sluggish pupillary reflex bilaterally. Neck supple General: trachea midline and CVC in place Chest inspection of chest normal Resp Auscultation: diminished lung sounds; Negative for rales, rhonchi or wheezes Cardio regular rate and regular rhythm GI normal to inspection, nondistended, normoactive bowel sounds Extremity no clubbing, cyanosis or edema Skin Skin Narrative: Scattered abrasions over face and trunk Neuro Neuro Narrative: No change from previous. Currently moving extremities spontaneously, but will not follow any commands. Psych Mood & Affect: flat affect Charges/Coding Procedures Hospitalists Procedures: 53681 Critical Care 1st Hr
--- NOTE | 2024-08-17 06:52 | PN.HOSP_ITS ---
Reason for Visit Reason for Visit: Diagnoses Type 2 diabetes mellitus with hyperosmolarity without nonketotic hyperglycemic- hyperosmolar coma ([facility]) (08/08/24) Hyperosmolality and hypernatremia (08/08/24) Acidosis, unspecified (08/08/24) Pneumonitis due to inhalation of food and vomit (08/08/24) Acute respiratory failure, unspecified whether with hypoxia or hypercapnia (08/08/24) Rhabdomyolysis (08/08/24) Acute kidney failure, unspecified (08/08/24) Chronic kidney disease, stage 4 (severe) (08/08/24) Altered mental status, unspecified (08/08/24) Subjective Subjective extubated today. Not following commands. Objective Data Objective Data Vital Signs: Vital Signs Temp Pulse Resp BP Pulse Ox O2 Del Method O2 Flow Rate 37.0 C 78 16 123/52 H 97 Mechanical Ventilator 21 08/17/24 00:00 08/17/24 06:00 08/17/24 06:00 08/17/24 06:00 08/17/24 06:00 08/17/24 06:00 08/15/24 17:00 FiO2 21 08/17/24 06:00 Oxygen Flow Rate (L/min) 21 Oxygen Delivery Method Mechanical Ventilator Weight: 81.9 kg Body Mass Index (BMI) 34.1 Intake & Output: Intake and Output for Last 24 Hours 08/15/24 08/16/24 08/17/24 23:59 23:59 23:59 Intake Total 3150.69 / 3150.69 2935.00 / 2935.00 50 / 50 Output Total 1250 / 1550 1850 / 1850 300 / 300 Balance 1900.69 / 1600.69 1085.00 / 1085.00 -250 / -250 Lab / Micro Data 08/16/24 07:50 08/17/24 05:24 Labs: Laboratory Results - last 24 hr 08/16/24 07:50: WBC 15.4 H, RBC 3.17 L, Hgb 9.1 L, Hct 28.4 L, MCV 89.6, MCH 28.7, MCHC 32.0, RDW Std Deviation 44.6 H, RDW Coeff of Steven 13.7, Plt Count 272, MPV 10.7, Immature Gran % (Auto) 0.900, Neut % (Auto) 81.1 H, Lymph % (Auto) 9.2 L, [place] % (Auto) 7.3, Eos % (Auto) 1.2, Baso % (Auto) 0.3, Absolute Neuts (auto) 12.5 H, Absolute Lymphs (auto) 1.41, Nucleated RBC % 0, Sodium 141, Potassium 3.4 L, Chloride 112 H, Carbon Dioxide 22.0, Anion Gap 7, BUN 50 H, Creatinine 1.99 H, Estim Creat Clear Calc 26.36, Est GFR (MDRD) Af Amer 32 L, Est GFR (MDRD) Non-Af 26 L, BUN/Creatinine Ratio 25.1 H, Glucose 172 H, Calcium 7.8 L 08/16/24 11:24: POC Glucose 140 H 08/16/24 16:11: POC Glucose 121 H 08/17/24 00:34: POC Glucose 150 H 08/17/24 05:25: POC Glucose 81 Micro: Microbiology 08/14/24 15:20 Blood Culture (Wb) - Wrist Blood Culture - Preliminary No growth in 48 hours. 08/14/24 15:20 Blood Culture (Wb) - Pic Blood Culture - Preliminary No growth in 48 hours. 08/08/24 11:06 Blood Culture (Wb) - Right Forearm Bacteria Detection (PCR) - Final Staphylococcus epidermidis mecA Resistance Marker 08/08/24 11:06 Blood Culture (Wb) - Right Forearm Blood Culture - Final Staphylococcus epidermidis 08/08/24 10:27 Sputum, Induced/Lukens Gram Stain - Final 08/08/24 10:27 Sputum, Induced/Lukens Respiratory Culture - Final Citrobacter braakii 08/08/24 10:35 Blood Culture (Wb) - Right Forearm Blood Culture - Final Staphylococcus epidermidis 08/08/24 10:20 Urine Catheter - Alas Urine Culture - Final Mixed Gram Positive Organisms 08/08/24 14:36 Mucosa - Nasopharyngeal Respiratory Panel (PCR) - Final 08/08/24 14:36 Mucosa - Nasopharyngeal SARS-CoV-2, Influenza & RSV (PCR) - Final 08/08/24 14:25 Wound - Left Foot Skin and Soft Tissue MRSA/MSSA (PCR - Final 08/08/24 14:18 Mucosa - Nose Coronavirus COVID-19 PCR - Final 08/08/24 14:25 Urine Catheter - Alas Streptococcus pneumoniae Antigen (M - Final 08/08/24 14:25 Urine Catheter - Alas Legionella Antigen - Final Physical Exam Const Constitutional Narrative: unresponsive. does not follow commands. HEENT head/scalp atraumatic and moist oral mucous membranes Cardio regular rate, regular rhythm, S1 normal heart sound and S2 normal heart sound GI normal to inspection, nondistended, normoactive bowel sounds, soft to palpation and non-distended Extremity normal to inspection and full ROM Neuro no focal motor deficits Neuro Narrative: no clonus. turns eyes away to light (which is more than previous 2 days) Sensorium / Orientation: awake and alert Assessment & Plan Assessment/Plan (1) Acute alteration in mental status: (2) Hyperosmolar hyperglycemic state (HHS): (3) BENJAMIN (acute kidney injury): (4) Acute respiratory failure: PLAN: Plan Acute metabolic encephalopathy * Initially presented to ED after being found down unresponsive for unclear duration of time. * Initial CT head unremarkable. TSH and ammonia were within normal limits. 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 EEG consistent with severe diffuse encephalopathy without any epileptiform discharges. * Began to have increasing nonpurposeful movements on 08/13 requiring initiation of sedation. Per nursing, still has not had any purposeful movements or been able to follow any commands to this point. Discussed with sister at bedside on 08/13, see quick note for further details. CODE STATUS changed to DNR CCA, do not reintubate. Will defer to advanced practice provider for SAT/SBT trials moving forward. * DW Dr. Wilson, who is recommending a repeat EEG. Though there was no documentation of hypoxia, it is highly concerning that she may have anoxic encephalopathy. Also, she recommended a repeat MRI brain. I was in the room while the neurologist discussed with patient's sister I explained that the MRI will help shed light if there is significant irreversible damage though we suspect anoxic encephalopathy is not clear that she had it and also the fact that she had an MRI about a week ago that was normal to see if is any changes. If there is significant changes for the worse and that would be a better prognostic sign that she is not going to fare well but if it is normal it does not necessarily rule that out but she could have some recovery but it be unclear how much she would gain. * MRI brain report pending, but no drastic changes on my review. EEG shows encephalopathy. * Dr Wilson feels there may be continued improvement, unclear amount of reocery. Acute hypoxemic respiratory failure with concern for aspiration pneumonia * Utilization Review Coordinator following as above. * Emergently intubated in ED given altered mentation. Extubated * Chest x-ray on admit showed focal infiltrate in left lower lobe concerning for aspiration pneumonia. * Infectious workup has been negative. * On IV pip/tazo and vancomycin BENJAMIN on CKD stage IV, resolved * Nephrology following. * Had worsening of kidney function on 08/14, IV Lasix discontinued and will plan to restart home p.o. Lasix on 08/15. Continue to monitor daily BMP and urine output. Hyperosmolar hyperglycemic state, resolved; poorly controlled type 2 diabetes mellitus * Glucose 756 with mental status change on admit. * Known history of poorly controlled diabetes, last A1c 13.1% in April. Currently on tube feeds, continue basal insulin and corrective insulin every 6 hours and adjust doses as needed. Hypernatremia * improved Chronic medical conditions: * Obesity class I: BMI 33 on admit. Complicates hospital course, care and prognosis. * GERD: Continue PPI. * Hypertension: Holding home beta-suresh and OLGAN inhibitor. Nutrition: on Vital Af 1.2 at 50cc/h DVT prophylaxis: Heparin subcu CODE STATUS: DNR CCA, do not reintubate Expected disposition: TBD Charges/Coding Visit Charges Inpatient E&M: 83847 Subs Hosp L2
[2024-08-17 09:37] LABS: Anion Gap 7 (5-15); BUN 35 mg/dL (7-18); BUN/Creat Ratio 19.3 RATIO (10-20); Calcium,Total 7.7 mg/dL (8.5-10.1); Chloride 115 mmol/L (98-107); Creatinine, Serum 1.81 mg/dL (0.55-1.02); EST Glomerular Filtration Rate 30 mL/min (>60); Est Glom Filt Rate - Afr Amer 36 mL/min (>60); Estimated Creatinine Clearance 28.85 ml/min; Glucose 92 mg/dL (74-106); Potassium 3.7 mmol/L (3.5-5.1); Sodium Level 143 mmol/L (136-145)
--- NOTE | 2024-08-17 10:48 | PCM.PN.REN ---
Subjective Subjective Following for BENJAMIN on CKD. The patient was extubated earlier today on 08/17/2024. Patient is still encephalopathic. Cannot do ROS. Objective Data Objective Data Vital Signs: Vital Signs Temp Pulse Resp BP Pulse Ox O2 Del Method O2 Flow Rate 97.0 F L 76 19 H 146/68 H 98 Room Air 21 08/17/24 08:00 08/17/24 10:00 08/17/24 10:00 08/17/24 10:00 08/17/24 10:00 08/17/24 10:00 08/15/24 17:00 FiO2 21 08/17/24 09:00 Oxygen Flow Rate (L/min) 21 Oxygen Delivery Method Room Air Weight: 81.9 kg Body Mass Index (BMI) 34.1 Intake & Output: Intake and Output for Last 24 Hours 08/15/24 08/16/24 08/17/24 23:59 23:59 23:59 Intake Total 3150.69 / 3150.69 2935.00 / 2935.00 196.83 / 196.83 Output Total 1250 / 1550 1850 / 1850 300 / 300 Balance 1900.69 / 1600.69 1085.00 / 1085.00 -103.17 / -103.17 Lab / Micro Data 08/16/24 07:50 08/17/24 05:24 Labs: Laboratory Results - last 24 hr 08/16/24 11:24: POC Glucose 140 H 08/16/24 16:11: POC Glucose 121 H 08/17/24 00:34: POC Glucose 150 H 08/17/24 05:24: Sodium 143, Potassium 3.7, Chloride 115 H, Carbon Dioxide 21.0, Anion Gap 7, BUN 35 H, Creatinine 1.81 H, Estim Creat Clear Calc 28.85, Est GFR (MDRD) Af Amer 36 L, Est GFR (MDRD) Non-Af 30 L, BUN/Creatinine Ratio 19.3, Glucose 92, Calcium 7.7 L 08/17/24 05:25: POC Glucose 81 Micro: Microbiology 08/14/24 15:20 Blood Culture (Wb) - Wrist Blood Culture - Preliminary No growth in 48 hours. 08/14/24 15:20 Blood Culture (Wb) - Pic Blood Culture - Preliminary No growth in 48 hours. 08/08/24 11:06 Blood Culture (Wb) - Right Forearm Bacteria Detection (PCR) - Final Staphylococcus epidermidis mecA Resistance Marker 08/08/24 11:06 Blood Culture (Wb) - Right Forearm Blood Culture - Final Staphylococcus epidermidis 08/08/24 10:27 Sputum, Induced/Lukens Gram Stain - Final 08/08/24 10:27 Sputum, Induced/Lukens Respiratory Culture - Final Citrobacter braakii 08/08/24 10:35 Blood Culture (Wb) - Right Forearm Blood Culture - Final Staphylococcus epidermidis 08/08/24 10:20 Urine Catheter - Alas Urine Culture - Final Mixed Gram Positive Organisms 08/08/24 14:36 Mucosa - Nasopharyngeal Respiratory Panel (PCR) - Final 08/08/24 14:36 Mucosa - Nasopharyngeal SARS-CoV-2, Influenza & RSV (PCR) - Final 08/08/24 14:25 Wound - Left Foot Skin and Soft Tissue MRSA/MSSA (PCR - Final 08/08/24 14:18 Mucosa - Nose Coronavirus COVID-19 PCR - Final 08/08/24 14:25 Urine Catheter - Alas Streptococcus pneumoniae Antigen (M - Final 08/08/24 14:25 Urine Catheter - Alas Legionella Antigen - Final Physical Exam Narrative General appearance: Ill-appearing, restless. HEENT: Normocephalic, atraumatic. Mucous membrane moist. Cardiovascular: Normal S1, S2. No rubs or murmurs. Lungs: Coarse breath sound anteriorly. Abdomen: Normal bowel sounds, soft, nontender. Extremities: No clubbing, cyanosis or edema. Const General Appearance: ill appearing and patient mechanically ventilated Orientation / Consciousness: oriented to person HEENT normocephalic Neck no lymphadenopathy Resp clear to auscultation bilaterally Auscultation: rhonchi throughout Cardio regular rate GI non-distended Auscultation: normoactive bowel sounds Palpation: soft Bladder / Kidney Exam: catheter in place Extremity General Extremity: edema bilateral Skin no rashes or lesions noted Neuro Sensorium / Orientation: sedated on vent Assessment & Plan Assessment/Plan (1) BENJAMIN (acute kidney injury): (2) CKD (chronic kidney disease) stage 4, GFR 15-29 ml/min: (3) Hypernatremia: PLAN: Plan Impression/Plan: The patient is a 68-year-old female with past history of CKD stage G4, type 2 diabetes mellitus, hypertension, HFrEF (EF 40%), GERD, and hyperlipidemia. The patient was admitted to the hospital on 08/08/2024 after being found down by her family at her home for unknown period of time. On presentation, the patient was found to have hyperosmotic hyperglycemic state, acute kidney injury on chronic kidney disease and metabolic acidosis in addition to altered mental status. Patient was admitted to ICU for treatment of acute metabolic encephalopathy along with acute hypoxic respiratory failure requiring mechanical ventilation. She is being treated for probable aspiration pneumonia. Nephrology is following for BENJAMIN on CKD. Acute kidney injury on chronic kidney disease stage G4. Baseline serum creatinine been around 2.30 to 2.40 mg/dL prior to this admission. Patient likely has underlying diabetic kidney disease. Patient presented to hospital with serum creatinine of 3.64 mg/dL on 08/08/2024. I suspect BENJAMIN secondary to ischemic ATN. Renal function is been fluctuating which is unexpected and likely related to changing volume status. Serum creatinine trended down the last 72 hours from 2.43 mg/dL on 08/14/2024 down to 1.81 mg/dL today on 08/17/2024. Current renal function is below her usual baseline. However, the patient is currently off of losartan which she was taking at home. No need for further change in treatment from nephrology standpoint. I have low suspicion that encephalopathy is due to uremia at this point. Continue current supportive care, keeping MAP above 65 mmHg. We can consider restarting losartan in next 24 hours if renal function remains stable since BP is also rising. We will continue to monitor renal function, volume status, acid-base and electrolytes. Hypertension. BP is controlled without antihypertensives. Prior to admission, the patient was on losartan, carvedilol, finerenone, and amlodipine. Hypernatremia. The patient was transiently hypernatremic with serum sodium as high as 152 mmol/L on 08/09/2024. Hyponatremia has resolved with current supportive care. She is receiving water flush with tube feed. Nephrology plan was discussed with hospitalist, Dr. Mendez.
--- NOTE | 2024-08-17 11:35 | NEURO.PNOTE ---
Assessment and Plan: Neuro Assessment/Plan HAIDER PARIIS is a 68 F with a past medical history of DM, HTN, CKD IV, who is presenting after being found unresponsive of unknown duration , being evaluated by Teleneurology for persistent encephalopathy. Unclear etiology of why patient was unresponsive but she was found with severe hyperglycemia, hypernatremia, and BENJAMIN suggesting severe dehydration. Blood glucose may have played a role as it had with a prior unresponsive episode, however there is no clear history for this event that this is what happened. Since admission, when patient was completely unresponsive, she has improved and had non-purposeful movements but is not following commands. Initial studies were benign with no evidence of seizure or acute structural changes on imaging. In discussion with family, there was no clear baseline disability that would explain symptoms either. Exam today patient finally had some response consistently to noxious stimulation which demonstrates improvement. She is also extubated and maintaining her own airway. Have discussed prognosis with sister - which is unclear at this time. There is every indication at this time that patient will likely continue to improve given his continued improvement. And repeat imaging and EEG do not suggest that there will not continue to be recovery. Still, to what extent re improvement is unclear. There is probably some underlying damage that is slowing recovery but given enough time, she could likely recover. No further workup at this time, Neurology will sign off. I personally attended this patient and spent a total time of 30 minutes evaluating this patient including clinical assessment, review of chart, medical history imaging, and determining appropriate treatment and workup. Subject: Neurology Subjective Pt extubated overnight, still not following commands EEG Results Procedure Details EEG Procedure Details: HAIDER PARISI is a 68 year old F with a past medical history of , who presents for evaluation of Electroencephalogram on DATE at TIME Objective Data Objective Data Vital Signs: Vital Signs Temp Pulse Resp BP Pulse Ox O2 Del Method O2 Flow Rate 97.0 F L 76 19 H 146/68 H 98 Room Air 21 08/17/24 08:00 08/17/24 10:00 08/17/24 10:00 08/17/24 10:00 08/17/24 10:00 08/17/24 10:00 08/15/24 17:00 FiO2 21 08/17/24 09:00 Oxygen Flow Rate (L/min) 21 Oxygen Delivery Method Room Air Weight: 81.9 kg Body Mass Index (BMI) 34.1 Intake & Output: Intake and Output for Last 24 Hours 08/15/24 08/16/24 08/17/24 23:59 23:59 23:59 Intake Total 3150.69 / 3150.69 2935.00 / 2935.00 196.83 / 196.83 Output Total 1250 / 1550 1850 / 1850 300 / 300 Balance 1900.69 / 1600.69 1085.00 / 1085.00 -103.17 / -103.17 Lab / Micro Data 08/16/24 07:50 08/17/24 05:24 Labs: Laboratory Results - last 24 hr 08/16/24 11:24: POC Glucose 140 H 08/16/24 16:11: POC Glucose 121 H 08/17/24 00:34: POC Glucose 150 H 08/17/24 05:24: Sodium 143, Potassium 3.7, Chloride 115 H, Carbon Dioxide 21.0, Anion Gap 7, BUN 35 H, Creatinine 1.81 H, Estim Creat Clear Calc 28.85, Est GFR (MDRD) Af Amer 36 L, Est GFR (MDRD) Non-Af 30 L, BUN/Creatinine Ratio 19.3, Glucose 92, Calcium 7.7 L 08/17/24 05:25: POC Glucose 81 Micro: Microbiology 08/14/24 15:20 Blood Culture (Wb) - Wrist Blood Culture - Preliminary No growth in 48 hours. 08/14/24 15:20 Blood Culture (Wb) - Pic Blood Culture - Preliminary No growth in 48 hours. 08/08/24 11:06 Blood Culture (Wb) - Right Forearm Bacteria Detection (PCR) - Final Staphylococcus epidermidis mecA Resistance Marker 08/08/24 11:06 Blood Culture (Wb) - Right Forearm Blood Culture - Final Staphylococcus epidermidis 08/08/24 10:27 Sputum, Induced/Lukens Gram Stain - Final 08/08/24 10:27 Sputum, Induced/Lukens Respiratory Culture - Final Citrobacter braakii 08/08/24 10:35 Blood Culture (Wb) - Right Forearm Blood Culture - Final Staphylococcus epidermidis 08/08/24 10:20 Urine Catheter - Alas Urine Culture - Final Mixed Gram Positive Organisms 08/08/24 14:36 Mucosa - Nasopharyngeal Respiratory Panel (PCR) - Final 08/08/24 14:36 Mucosa - Nasopharyngeal SARS-CoV-2, Influenza & RSV (PCR) - Final 08/08/24 14:25 Wound - Left Foot Skin and Soft Tissue MRSA/MSSA (PCR - Final 08/08/24 14:18 Mucosa - Nose Coronavirus COVID-19 PCR - Final 08/08/24 14:25 Urine Catheter - Alas Streptococcus pneumoniae Antigen (M - Final 08/08/24 14:25 Urine Catheter - Alas Legionella Antigen - Final Physical Exam Narrative R gaze preference grimaceintact b/l Does not open eyes to voice or nox stim Nonpurposeful movement in all four extremities, no clear weakness. Some antigravity Today will localize to noxious stim applied to her nasal passages, more present on the L than the R No clear withdraw to nox stim, no triple flexion no clear babinski
[2024-08-17] MEDS: Pantoprazole Sodium 40 MG in 0.9% Normal Saline (100mL MB+) 100 ML 330 MG IV ×2 (11:36→21:53)
[2024-08-17] MEDS: Menthol/Lanolin/Calamine/Znox 113 GM Tube 1 APPLIC TOPICAL ×4 (11:37→23:18)
[2024-08-17] MEDS: Heparin Injection (Vial) 5,000 UNIT/ML VIAL 5000 UNIT SC ×2 (11:37→23:17)
[2024-08-17] MEDS: Vancomycin HCl 750 MG in 0.9% Normal Saline (250mL Bag) 250 ML 250 MG IV (11:38)
[2024-08-17] MEDS: CHLORHEXIDINE GLUC 2% CLOTH 1 EACH TOWELETTE TOPICAL (11:38)
[2024-08-17] MEDS: Erythromycin Base 1 OPTH.TUBE 1 APPLIC LEFT EYE ×2 (11:38→23:18)
[2024-08-17] MEDS: Dextrose 10%-Water 250 ML 999 ML IV (19:33)
[2024-08-17 19:53] LABS: Bedside Glucose 55 mg/dL (74-106)
[2024-08-17 20:52] LABS: Bedside Glucose 127 mg/dL (74-106)
[2024-08-17 22:22] LABS: Absolute Lymphocyte Count 1.57 X10^3/uL (0.83-4.51); Absolute Neutrophil Count 11.6 X10^3/uL (2.0-7.7); Basophil# 0.07 X10^3/uL; Basophil% 0.5 % (0-1); Eosinophil# 0.13 X10^3/uL; Eosinophils% 0.9 % (0-5); Hematocrit 27.7 % (37-47); Hemoglobin 8.9 g/dL (12.0-15.0); Lymphocyte # 1.57 X10^3/ul (0.83-4.51); Lymphocyte % 10.8 % (19-41); Mean Corp Hgb Conc 32.1 g/dL (32-36); Mean Corpuscular Hgb 28.8 pg (27.0-32.0); Mean Corpuscular Volume 89.6 fL (81-99); Mean Platelet Vol. 12.9 fl (6.2-12.0); Monocyte# 1.05 X10^3/uL; Monocyte% 7.2 % (0-10); NRBC Flagged by Analyzer 0 % (0-5); Neutrophil # 11.57 X10^3/uL (2.7-7.7); Neutrophil % 79.8 % (47-70); Platelet Count 314 K/mm3 (150-450); RBC Distribution Width CV 13.7 % (11.6-14.6); RBC Distribution Width SD 43.8 fl (35.1-43.9); Red Blood Count 3.09 M/mm3 (4.2-5.4); White Blood Count 14.5 K/mm3 (4.4-11.0)
[2024-08-18] VITALS: PULSE 80; PULSE 81; RESP 16; O2SAT 98
[2024-08-18 00:44] LABS: Bedside Glucose 85 mg/dL (74-106)
[2024-08-18 04:00] VITALS: BP 124/62; PULSE 72; RESP 16; TEMP 36.6; O2SAT 98
[2024-08-18 04:19] VITALS: BMI 34.0
[2024-08-18 04:53] LABS: Anion Gap 8 (5-15); BUN 27 mg/dL (7-18); BUN/Creat Ratio 16.5 RATIO (10-20); Calcium,Total 8.1 mg/dL (8.5-10.1); Chloride 114 mmol/L (98-107); Creatinine, Serum 1.64 mg/dL (0.55-1.02); EST Glomerular Filtration Rate 33 mL/min (>60); Est Glom Filt Rate - Afr Amer 40 mL/min (>60); Estimated Creatinine Clearance 31.78 ml/min; Glucose 84 mg/dL (74-106); Potassium 3.8 mmol/L (3.5-5.1); Sodium Level 142 mmol/L (136-145)
[2024-08-18 06:00] VITALS: PULSE 81; RESP 16; O2SAT 98
[2024-08-18] MEDS: Nystatin Powder 15gm Bottle 1 APPLIC TOPICAL ×2 (06:19→14:16)
[2024-08-18 06:37] LABS: Bedside Glucose 72 mg/dL (74-106)
--- NOTE | 2024-08-18 06:40 | PCM.PN.INT ---
Assessment & Plan Assessment/Plan (1) Acute alteration in mental status: (2) Metabolic acidosis: (3) Hyperosmolar hyperglycemic state (HHS): (4) Aspiration pneumonia: (5) BENJAMIN (acute kidney injury): PLAN: Plan RECOMMENDATIONS: 1. Continue basal and sliding scale insulin coverage. 2. Long-term prognosis is unclear. Recommend ongoing goals of care discussion with the patient's family. 3. The patient is medically stable for transfer out of the intensive care unit. Will sign off at this time. IMPRESSIONS: 1. Acute hypoxemic respiratory failure Resolved. The patient presented to the emergency department after being found down unresponsive of unclear duration. She was emergently intubated as a consequence of the aforementioned. There were clinical concerns for underlying aspiration pneumonia. Therefore, the patient completed a treatment course of antimicrobials. She was ultimately able to be extubated without any issue. The patient is maintaining appropriate oxygen saturations on room air. 2. Acute metabolic encephalopathy The patient presented with a number of metabolic derangements and concern for HHS in the setting of poorly controlled diabetes mellitus. Initial CT head was unremarkable. TSH and ammonia were within normal limits. 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 EEG was consistent with severe diffuse encephalopathy without any epileptiform discharges. Prognosis for meaningful recovery remains unclear. Neurology was following. 3. Hyperosmolar hyperglycemic state Resolved. The patient has a known history of poorly controlled diabetes mellitus. Continue basal and continue sliding scale insulin coverage. 4. History of poorly controlled diabetes mellitus/obesity/GERD/neuropathy/hypertension Complicates care, management, recovery and prognosis. Continue to hold the remainder of the patient's home medications. Unclear plans for long-term nutritional support, as the patient is NPO. CODE STATUS: DNR CCA without intubation This note was generated with [employer] dictation software. It may contain incorrect words, spelling, and punctuation that were not noted in checking the note before signing. Subjective Subjective The patient was seen and examined at the bedside this morning. Events from the last 24 hours have been reviewed. The patient is currently afebrile, hemodynamically stable and maintaining appropriate oxygen saturations on room air. The patient remains restless in bed moving all extremities spontaneously, but from a neurologic perspective remains largely unchanged from previous. Prognosis for this patient remains unclear. Objective Data Objective Data The patient's most recent lab work, culture data and imaging studies have all been personally reviewed. Preliminary sputum culture is demonstrating growth of a gram-negative jorge, lactose [employer]. Blood culture dated August 08 was positive for Staph epidermidis. Vital Signs: Vital Signs Temp Pulse Resp BP Pulse Ox O2 Del Method O2 Flow Rate 97.8 F 72 16 124/62 H 98 Room Air 21 08/18/24 04:00 08/18/24 04:00 08/18/24 04:00 08/18/24 04:00 08/18/24 04:00 08/18/24 04:00 08/15/24 17:00 FiO2 21 08/17/24 09:00 Oxygen Flow Rate (L/min) 21 Oxygen Delivery Method Room Air Weight: 179 lb 14.355 oz Body Mass Index (BMI) 34.0 Intake & Output: Intake and Output for Last 24 Hours 08/16/24 08/17/24 08/18/24 23:59 23:59 23:59 Intake Total 2935.00 / 2935.00 981.83 / 981.83 50 / 50 Output Total 1850 / 1850 300 / 700 400 / 400 Balance 1085.00 / 1085.00 681.83 / 281.83 -350 / -350 Lab / Micro Data Attestation: I reviewed the patient's lab results. 08/17/24 05:24 08/18/24 04:26 Labs: Laboratory Results - last 24 hr 08/17/24 05:24: WBC 14.5 H, RBC 3.09 L, Hgb 8.9 L, Hct 27.7 L, MCV 89.6, MCH 28.8, MCHC 32.1, RDW Std Deviation 43.8, RDW Coeff of Steven 13.7, Plt Count 314, MPV 12.9 H, Immature Gran % (Auto) 0.800, Neut % (Auto) 79.8 H, Lymph % (Auto) 10.8 L, [place] % (Auto) 7.2, Eos % (Auto) 0.9, Baso % (Auto) 0.5, Absolute Neuts (auto) 11.6 H, Absolute Lymphs (auto) 1.57, Nucleated RBC % 0, Sodium 143, Potassium 3.7, Chloride 115 H, Carbon Dioxide 21.0, Anion Gap 7, BUN 35 H, Creatinine 1.81 H, Estim Creat Clear Calc 28.85, Est GFR (MDRD) Af Amer 36 L, Est GFR (MDRD) Non-Af 30 L, BUN/Creatinine Ratio 19.3, Glucose 92, Calcium 7.7 L 08/17/24 19:29: POC Glucose 55 L 08/17/24 20:34: POC Glucose 127 H 08/18/24 00:22: POC Glucose 85 08/18/24 04:26: Sodium 142, Potassium 3.8, Chloride 114 H, Carbon Dioxide 20.0 L, Anion Gap 8, BUN 27 H, Creatinine 1.64 H, Estim Creat Clear Calc 31.78, Est GFR (MDRD) Af Amer 40 L, Est GFR (MDRD) Non-Af 33 L, BUN/Creatinine Ratio 16.5, Glucose 84, Calcium 8.1 L 08/18/24 06:17: POC Glucose 72 L Micro: Microbiology 08/14/24 15:20 Blood Culture (Wb) - Wrist Blood Culture - Preliminary No growth in 48 hours. 08/14/24 15:20 Blood Culture (Wb) - Pic Blood Culture - Preliminary No growth in 48 hours. 08/08/24 11:06 Blood Culture (Wb) - Right Forearm Bacteria Detection (PCR) - Final Staphylococcus epidermidis mecA Resistance Marker 08/08/24 11:06 Blood Culture (Wb) - Right Forearm Blood Culture - Final Staphylococcus epidermidis 08/08/24 10:27 Sputum, Induced/Lukens Gram Stain - Final 08/08/24 10:27 Sputum, Induced/Lukens Respiratory Culture - Final Citrobacter braakii 08/08/24 10:35 Blood Culture (Wb) - Right Forearm Blood Culture - Final Staphylococcus epidermidis 08/08/24 10:20 Urine Catheter - Alas Urine Culture - Final Mixed Gram Positive Organisms 08/08/24 14:36 Mucosa - Nasopharyngeal Respiratory Panel (PCR) - Final 08/08/24 14:36 Mucosa - Nasopharyngeal SARS-CoV-2, Influenza & RSV (PCR) - Final 08/08/24 14:25 Wound - Left Foot Skin and Soft Tissue MRSA/MSSA (PCR - Final 08/08/24 14:18 Mucosa - Nose Coronavirus COVID-19 PCR - Final 08/08/24 14:25 Urine Catheter - Alas Streptococcus pneumoniae Antigen (M - Final 08/08/24 14:25 Urine Catheter - Alas Legionella Antigen - Final ABG Data ABG results: ABG 08/15/24 10:29 Specimen Type ART Sample Site L Radial pH 7.37 Bicarbonate Actual 18.2 L Total CO2 19 Base Excess -7 L O2 Saturation 93 L O2 % 21.0 ABG pCO2 31.3 L ABG pO2 67 L Slim Test Positive O2 Delivery Device Adult Vent Vent Mode CPAP/PS POC PEEP 5 Radiography Diagnostic Testing: Radiology Impression Brain MRI 08/10/24 10:19 IMPRESSION: Findings which are 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 Chronically ill in appearance. HEENT normocephalic and head/scalp atraumatic Teeth and Gingiva: poor dentition Eyes Eyes Narrative: Sluggish pupillary reflex bilaterally. Neck supple General: trachea midline and CVC in place Chest inspection of chest normal Resp Auscultation: diminished lung sounds; Negative for rales, rhonchi or wheezes Cardio regular rate and regular rhythm GI normal to inspection, nondistended, normoactive bowel sounds Extremity no clubbing, cyanosis or edema Skin Skin Narrative: Scattered abrasions over face and trunk Neuro moves all extremities Psych Activity / Motor Behavior: restless Mood & Affect: flat affect Charges/Coding Visit Charges Inpatient E&M: 65353 Subs Hosp L3
--- NOTE | 2024-08-18 07:11 | PCM.PN.HOSP ---
Reason for Visit Reason for Visit: Diagnoses Type 2 diabetes mellitus with hyperosmolarity without nonketotic hyperglycemic-hyperosmolar coma (NKHHC) (08/08/24) Hyperosmolality and hypernatremia (08/08/24) Acidosis, unspecified (08/08/24) Pneumonitis due to inhalation of food and vomit (08/08/24) Acute respiratory failure, unspecified whether with hypoxia or hypercapnia (08/08/24) Rhabdomyolysis (08/08/24) Acute kidney failure, unspecified (08/08/24) Chronic kidney disease, stage 4 (severe) (08/08/24) Altered mental status, unspecified (08/08/24) Subjective Subjective Still unresponsive. Moving all extremities. Objective Data Objective Data Vital Signs: Vital Signs Temp Pulse Resp BP Pulse Ox O2 Del Method O2 Flow Rate 36.6 C 81 16 124/62 H 98 Room Air 21 08/18/24 04:00 08/18/24 06:00 08/18/24 06:00 08/18/24 04:00 08/18/24 06:00 08/18/24 06:00 08/15/24 17:00 FiO2 21 08/17/24 09:00 Oxygen Flow Rate (L/min) 21 Oxygen Delivery Method Room Air Weight: 81.6 kg Body Mass Index (BMI) 34.0 Intake & Output: Intake and Output for Last 24 Hours 08/16/24 08/17/24 08/18/24 23:59 23:59 23:59 Intake Total 2935.00 / 2935.00 981.83 / 981.83 50 / 50 Output Total 1850 / 1850 300 / 700 525 / 525 Balance 1085.00 / 1085.00 681.83 / 281.83 -475 / -475 Lab / Micro Data 08/17/24 05:24 08/18/24 04:26 Labs: Laboratory Results - last 24 hr 08/17/24 05:24: WBC 14.5 H, RBC 3.09 L, Hgb 8.9 L, Hct 27.7 L, MCV 89.6, MCH 28.8, MCHC 32.1, RDW Std Deviation 43.8, RDW Coeff of Steven 13.7, Plt Count 314, MPV 12.9 H, Immature Gran % (Auto) 0.800, Neut % (Auto) 79.8 H, Lymph % (Auto) 10.8 L, Lyman % (Auto) 7.2, Eos % (Auto) 0.9, Baso % (Auto) 0.5, Absolute Neuts (auto) 11.6 H, Absolute Lymphs (auto) 1.57, Nucleated RBC % 0, Sodium 143, Potassium 3.7, Chloride 115 H, Carbon Dioxide 21.0, Anion Gap 7, BUN 35 H, Creatinine 1.81 H, Estim Creat Clear Calc 28.85, Est GFR (MDRD) Af Amer 36 L, Est GFR (MDRD) Non-Af 30 L, BUN/Creatinine Ratio 19.3, Glucose 92, Calcium 7.7 L 08/17/24 19:29: POC Glucose 55 L 08/17/24 20:34: POC Glucose 127 H 08/18/24 00:22: POC Glucose 85 08/18/24 04:26: Sodium 142, Potassium 3.8, Chloride 114 H, Carbon Dioxide 20.0 L, Anion Gap 8, BUN 27 H, Creatinine 1.64 H, Estim Creat Clear Calc 31.78, Est GFR (MDRD) Af Amer 40 L, Est GFR (MDRD) Non-Af 33 L, BUN/Creatinine Ratio 16.5, Glucose 84, Calcium 8.1 L 08/18/24 06:17: POC Glucose 72 L Micro: Microbiology 08/14/24 15:20 Blood Culture (Wb) - Wrist Blood Culture - Preliminary No growth in 48 hours. 08/14/24 15:20 Blood Culture (Wb) - Pic Blood Culture - Preliminary No growth in 48 hours. 08/08/24 11:06 Blood Culture (Wb) - Right Forearm Bacteria Detection (PCR) - Final Staphylococcus epidermidis mecA Resistance Marker 08/08/24 11:06 Blood Culture (Wb) - Right Forearm Blood Culture - Final Staphylococcus epidermidis 08/08/24 10:27 Sputum, Induced/Lukens Gram Stain - Final 08/08/24 10:27 Sputum, Induced/Lukens Respiratory Culture - Final Citrobacter braakii 08/08/24 10:35 Blood Culture (Wb) - Right Forearm Blood Culture - Final Staphylococcus epidermidis 08/08/24 10:20 Urine Catheter - Alas Urine Culture - Final Mixed Gram Positive Organisms 08/08/24 14:36 Mucosa - Nasopharyngeal Respiratory Panel (PCR) - Final 08/08/24 14:36 Mucosa - Nasopharyngeal SARS-CoV-2, Influenza & RSV (PCR) - Final 08/08/24 14:25 Wound - Left Foot Skin and Soft Tissue MRSA/MSSA (PCR - Final 08/08/24 14:18 Mucosa - Nose Coronavirus COVID-19 PCR - Final 08/08/24 14:25 Urine Catheter - Alas Streptococcus pneumoniae Antigen (M - Final 08/08/24 14:25 Urine Catheter - Alas Legionella Antigen - Final Physical Exam Const Orientation / Consciousness: confused HEENT head/scalp atraumatic and moist oral mucous membranes Eyes Eyes Narrative: pupils sluggish. turns eyes away from the light. Resp normal respiratory effort and no retractions Extremity normal to inspection Neuro moves all extremities Neuro Narrative: does not follow commands. Assessment & Plan Assessment/Plan (1) Acute alteration in mental status: (2) Hyperosmolar hyperglycemic state (HHS): (3) BENJAMIN (acute kidney injury): (4) Acute respiratory failure: PLAN: Plan Acute metabolic encephalopathy Initially presented to ED after being found down unresponsive for unclear duration of time. Initial CT head unremarkable. TSH and ammonia were within normal limits. 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 EEG consistent with severe diffuse encephalopathy without any epileptiform discharges. Began to have increasing nonpurposeful movements on 08/13 requiring initiation of sedation. Per nursing, still has not had any purposeful movements or been able to follow any commands to this point. Discussed with sister at bedside on 08/13, see quick note for further details. CODE STATUS changed to DNR CCA, do not reintubate. Will defer to cable television installer for SAT/SBT trials moving forward. DW Dr. Wilson, who is recommending a repeat EEG. Though there was no documentation of hypoxia, it is highly concerning that she may have anoxic encephalopathy. Also, she recommended a repeat MRI brain. I was in the room while the neurologist discussed with patient's sister I explained that the MRI will help shed light if there is significant irreversible damage though we suspect anoxic encephalopathy is not clear that she had it and also the fact that she had an MRI about a week ago that was normal to see if is any changes. If there is significant changes for the worse and that would be a better prognostic sign that she is not going to fare well but if it is normal it does not necessarily rule that out but she could have some recovery but it be unclear how much she would gain. MRI brain report pending, but no drastic changes on my review. EEG shows encephalopathy. Dr Wilson feels there may be continued improvement, unclear amount of reocery. Acute hypoxemic respiratory failure with concern for aspiration pneumonia Money Room Teller following as above. Emergently intubated in ED given altered mentation. Extubated Chest x-ray on admit showed focal infiltrate in left lower lobe concerning for aspiration pneumonia. Infectious workup has been negative. IV pip/tazo and vancomycin completed 7-day course. BENJAMIN on CKD stage IV, resolved Nephrology following. Had worsening of kidney function on 08/14, IV Lasix discontinued and will plan to restart home p.o. Lasix on 08/15. Continue to monitor daily BMP and urine output. Hyperosmolar hyperglycemic state, resolved; poorly controlled type 2 diabetes mellitus Glucose 756 with mental status change on admit. Known history of poorly controlled diabetes, last A1c 13.1% in April. Currently on tube feeds, continue basal insulin and corrective insulin every 6 hours and adjust doses as needed. Hypernatremia improved Chronic medical conditions: Obesity class I: BMI 33 on admit. Complicates hospital course, care and prognosis. GERD: Continue PPI. Hypertension: Holding home beta-suresh and LOGAN inhibitor. Nutrition: on Vital Af 1.2 at 50cc/h DVT prophylaxis: Heparin subcu CODE STATUS: DNR CCA, do not reintubate Advance care planning. Spent additional 20 minutes were spoke to the patient's sister. Explained that the patient is overall doing better but is still a far cry from where she was before. Explained that patient could continue to get better but it is unclear what her ceiling would be if it would be normal or if it would still be secondly impaired component. I gave her the options of continuing medical care and I recommended if that route was chosen to proceed with Dobbhoff placement and administer tube feeds that way. I advised against a PEG tube because with patient moving around so much she would be at high risk of self discontinuation of a PEG tube which would require immediate replacement. And for her to continue the RN she did not have any improvement then could proceed with hospice at that time. The other option would be hospice now and that we could have hospice see her and make further recommendations and if she were to get better and then to rescind hospice and proceed with medical care at that point. At this point time she would like to discuss with hospice and that she would be in conversation with her sisters and then proceeding from there. Charges/Coding Visit Charges Inpatient E&M: 74856 Subs Hosp L2 Procedures Hospitalists Procedures: 11725 Advncd Care Plan 30 Min
[2024-08-18 07:47] VITALS: O2SAT 97
[2024-08-18] MEDS: Pantoprazole Sodium 40 MG in 0.9% Normal Saline (100mL MB+) 100 ML 330 MG IV (09:54)
[2024-08-18] MEDS: Menthol/Lanolin/Calamine/Znox 113 GM Tube 1 APPLIC TOPICAL ×2 (09:55→18:49)
[2024-08-18] MEDS: Heparin Injection (Vial) 5,000 UNIT/ML VIAL 5000 UNIT SC (09:55)
[2024-08-18] MEDS: Erythromycin Base 1 OPTH.TUBE 1 APPLIC LEFT EYE (09:56)
[2024-08-18 10:00] VITALS: BP 132/72; PULSE 81; RESP 15; TEMP 36.4; O2SAT 100
--- NOTE | 2024-08-18 10:32 | PCM.PN.REN ---
Subjective Subjective Following for BENJAMIN on CKD. Objective Data Objective Data Vital Signs: Vital Signs Temp Pulse Resp BP Pulse Ox O2 Del Method O2 Flow Rate 97.5 F L 81 15 132/72 H 100 Room Air 21 08/18/24 10:00 08/18/24 10:00 08/18/24 10:00 08/18/24 10:00 08/18/24 10:00 08/18/24 10:00 08/15/24 17:00 FiO2 21 08/17/24 09:00 Oxygen Flow Rate (L/min) 21 Oxygen Delivery Method Room Air Weight: 81.6 kg Body Mass Index (BMI) 34.0 Intake & Output: Intake and Output for Last 24 Hours 08/16/24 08/17/24 08/18/24 23:59 23:59 23:59 Intake Total 2935.00 / 2935.00 981.83 / 981.83 160 / 160 Output Total 1850 / 1850 300 / 700 525 / 525 Balance 1085.00 / 1085.00 681.83 / 281.83 -365 / -365 Lab / Micro Data 08/17/24 05:24 08/18/24 04:26 Labs: Laboratory Results - last 24 hr 08/17/24 05:24: WBC 14.5 H, RBC 3.09 L, Hgb 8.9 L, Hct 27.7 L, MCV 89.6, MCH 28.8, MCHC 32.1, RDW Std Deviation 43.8, RDW Coeff of Steven 13.7, Plt Count 314, MPV 12.9 H, Immature Gran % (Auto) 0.800, Neut % (Auto) 79.8 H, Lymph % (Auto) 10.8 L, [place] % (Auto) 7.2, Eos % (Auto) 0.9, Baso % (Auto) 0.5, Absolute Neuts (auto) 11.6 H, Absolute Lymphs (auto) 1.57, Nucleated RBC % 0 08/17/24 19:29: POC Glucose 55 L 08/17/24 20:34: POC Glucose 127 H 08/18/24 00:22: POC Glucose 85 08/18/24 04:26: Sodium 142, Potassium 3.8, Chloride 114 H, Carbon Dioxide 20.0 L, Anion Gap 8, BUN 27 H, Creatinine 1.64 H, Estim Creat Clear Calc 31.78, Est GFR (MDRD) Af Amer 40 L, Est GFR (MDRD) Non-Af 33 L, BUN/Creatinine Ratio 16.5, Glucose 84, Calcium 8.1 L 08/18/24 06:17: POC Glucose 72 L Micro: Microbiology 08/14/24 15:20 Blood Culture (Wb) - Wrist Blood Culture - Preliminary No growth in 48 hours. 08/14/24 15:20 Blood Culture (Wb) - Pic Blood Culture - Preliminary No growth in 48 hours. 08/08/24 11:06 Blood Culture (Wb) - Right Forearm Bacteria Detection (PCR) - Final Staphylococcus epidermidis mecA Resistance Marker 08/08/24 11:06 Blood Culture (Wb) - Right Forearm Blood Culture - Final Staphylococcus epidermidis 08/08/24 10:27 Sputum, Induced/Lukens Gram Stain - Final 08/08/24 10:27 Sputum, Induced/Lukens Respiratory Culture - Final Citrobacter braakii 08/08/24 10:35 Blood Culture (Wb) - Right Forearm Blood Culture - Final Staphylococcus epidermidis 08/08/24 10:20 Urine Catheter - Alas Urine Culture - Final Mixed Gram Positive Organisms 08/08/24 14:36 Mucosa - Nasopharyngeal Respiratory Panel (PCR) - Final 08/08/24 14:36 Mucosa - Nasopharyngeal SARS-CoV-2, Influenza & RSV (PCR) - Final 08/08/24 14:25 Wound - Left Foot Skin and Soft Tissue MRSA/MSSA (PCR - Final 08/08/24 14:18 Mucosa - Nose Coronavirus COVID-19 PCR - Final 08/08/24 14:25 Urine Catheter - Alas Streptococcus pneumoniae Antigen (M - Final 08/08/24 14:25 Urine Catheter - Alas Legionella Antigen - Final Radiography Diagnostic Testing: Radiology Impression Brain MRI 08/16/24 07:46 IMPRESSION: 1. No acute intracranial abnormality. 2. Fluid signal in the bilateral mastoid air cells which may represent mastoid edema or mastoiditis. Electronically Signed: Wilfrido Hopkins DO at 7:19 EST , Physical Exam Narrative General appearance: Ill-appearing, restless. HEENT: Normocephalic, atraumatic. Mucous membrane moist. Cardiovascular: Normal S1, S2. No rubs or murmurs. Lungs: Coarse breath sound anteriorly. Abdomen: Normal bowel sounds, soft, nontender. Extremities: No clubbing, cyanosis or edema. Const General Appearance: ill appearing and patient mechanically ventilated Orientation / Consciousness: oriented to person HEENT normocephalic Neck no lymphadenopathy Resp clear to auscultation bilaterally Auscultation: rhonchi throughout Cardio regular rate GI non-distended Auscultation: normoactive bowel sounds Palpation: soft Bladder / Kidney Exam: catheter in place Extremity General Extremity: edema bilateral Skin no rashes or lesions noted Neuro Sensorium / Orientation: sedated on vent Assessment & Plan Assessment/Plan (1) BENJAMIN (acute kidney injury): (2) CKD (chronic kidney disease) stage 4, GFR 15-29 ml/min: (3) Hypernatremia: PLAN: Plan Impression/Plan: The patient is a 68-year-old female with past history of CKD stage G4, type 2 diabetes mellitus, hypertension, HFrEF (EF 40%), GERD, and hyperlipidemia. The patient was admitted to the hospital on 08/08/2024 after being found down by her family at her home for unknown period of time. On presentation, the patient was found to have hyperosmotic hyperglycemic state, acute kidney injury on chronic kidney disease and metabolic acidosis in addition to altered mental status. Patient was admitted to ICU for treatment of acute metabolic encephalopathy along with acute hypoxic respiratory failure requiring mechanical ventilation. She is being treated for probable aspiration pneumonia. Nephrology is following for BENJAMIN on CKD. Acute kidney injury on chronic kidney disease stage G4. Baseline serum creatinine been around 2.30 to 2.40 mg/dL prior to this admission. Patient likely has underlying diabetic kidney disease. Patient presented to hospital with serum creatinine of 3.64 mg/dL on 08/08/2024. I suspect BENJAMIN was secondary to ischemic ATN. Renal function is been fluctuating which is unexpected and likely related to changing volume status. Serum creatinine trended down the last 4 days from 2.43 mg/dL on 08/14/2024 down to 1.64 mg/dL today on 08/18/2024. Current renal function is below her usual baseline. However, the patient is currently off of losartan which she was taking prior to admission. No need for further change in treatment from nephrology standpoint. I have low suspicion that encephalopathy is due to uremia at this point. Continue current supportive care, keeping MAP above 65 mmHg. We can consider restarting losartan in next 24 hours if renal function remains stable since BP is also rising. We will continue to monitor renal function, volume status, acid-base and electrolytes. Hypertension. BP is controlled without antihypertensives. Prior to admission, the patient was on losartan, carvedilol, finerenone, and amlodipine. We can restart antihypertensive as needed once BP is consistently above 130/80. Hypernatremia. The patient was transiently hypernatremic with serum sodium as high as 152 mmol/L on 08/09/2024. Hyponatremia has resolved with current supportive care. She is receiving water flush with tube feed. Serum sodium is stable at 142 mmol/L today. Nephrology plan was discussed with hospitalist, Dr. Mendez.
--- NOTE | 2024-08-18 11:20 | CASEMGMT ---
Addendum entered by Angle Do 08/18/24 11:55: Social Work [facility] will be at [facility] to meet with pt and sisters today between 5:30 and 6:00. RN updated. BING Reece Original Note: Social Work SW met with pt's sister Maia. Pat open to speaking with medical social worker and emotional support provided. Pat initiating discussion of goals of care and reflecting on what patient would want going forward. Both hospice care and SNF were discussed and SW explained both levels of care. SW also explained the [facility] at [facility]. Pt's spouse passed in 2019 and pt has no children. Pt has three living sisters - Maia, Tabatha and Thalia all who live in the area. According to Pat, pt does not have a HCPOA or living will. Pat stating that she and sisters are considering hospice but would like to speak with the hospitalist prior to making decisions. SW updated physician on conversation with pt's sister. Physician met with Pat and then requested a hospice referral. Referral made to [facility] and clinicals faxed. [facility] will reach out to Pat to schedule a time for meeting. KRIS met with Pat who confirms she would like to meet with hospice and that she will update her sisters as well. RN updated. BING Reece
[2024-08-18] MEDS: Dextrose 10%-Water 250 ML 999 ML IV (12:20)
[2024-08-18 13:30] LABS: Bedside Glucose 61 mg/dL (74-106)
[2024-08-18 13:36] LABS: Bedside Glucose 100 mg/dL (74-106)
[2024-08-18 18:24] LABS: Bedside Glucose 85 mg/dL (74-106)
--- NOTE | 2024-08-18 19:00 | DS.PCM_ITS ---
Providers Date of Admission: 08/08/24 Primary Care Physician: Dr. Hever Otoole, DO Consultations 08/08/24 14:04 Consult: Hybrid Powertrain Development Engineer / Pulmonary Medicine Routine Consulting Provider: Intensivists/Pulmonary Med Reason for Consult: vent management EMERGENT Consult: Yes MD Notified: Yes Date Notified: 08/08/24 Time Notified: 13:42 Method of Notification: ED Physician Initiated Consult: Nephrology Routine Consulting Provider: Sage Hedrick Reason for Consult: BENJAMIN EMERGENT Consult: No Notified: Yes Date Notified: 08/08/24 Time Notified: 14:54 Method of Notification: Answering Service 08/15/24 09:57 Tele [Consult: Tele-Neurology] Routine Consulting Provider: [facility] Reason for Consult: encephalopathy EMERGENT Consult: No Notified: Yes Date Notified: 08/15/24 Time Notified: 08:39 Method of Notification: Answering Service Method of Consult:: Telemedicine Nursing Unit Staff Notify [facility] of Tele-Neurology Consult: Yes Reason For Visit: ACUTE METABOLIC ENCEPHALOPATHY Diagnosis Discharge Diagnosis (1) Acute alteration in mental status: Status: Acute Code(s): R41.82 - Altered mental status, unspecified (2) Hyperosmolar hyperglycemic state (HHS): Status: Acute Code(s): E11.00 - Type 2 diabetes mellitus with hyperosmolarity without nonketotic hyperglycemic-hyperosmolar coma (NKHHC) (3) BENJAMIN (acute kidney injury): Status: Acute Code(s): N17.9 - Acute kidney failure, unspecified (4) Acute respiratory failure: Status: Acute Code(s): J96.00 - Acute respiratory failure, unspecified whether with hypoxia or hypercapnia Plan Acute metabolic encephalopathy * Initially presented to ED after being found down unresponsive for unclear duration of time. * Initial CT head unremarkable. TSH and ammonia were within normal limits. 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 EEG consistent with severe diffuse encephalopathy without any epileptiform discharges. * Began to have increasing nonpurposeful movements on 08/13 requiring initiation of sedation. Per nursing, still has not had any purposeful movements or been able to follow any commands to this point. Discussed with sister at bedside on 08/13, see quick note for further details. CODE STATUS changed to DNR CCA, do not reintubate. Will defer to furnace clerk for SAT/SBT trials moving forward. * DW Dr. Wilson, who is recommending a repeat EEG. Though there was no documentation of hypoxia, it is highly concerning that she may have anoxic encephalopathy. Also, she recommended a repeat MRI brain. I was in the room while the neurologist discussed with patient's sister I explained that the MRI will help shed light if there is significant irreversible damage though we suspect anoxic encephalopathy is not clear that she had it and also the fact that she had an MRI about a week ago that was normal to see if is any changes. If there is significant changes for the worse and that would be a better prognostic sign that she is not going to fare well but if it is normal it does not necessarily rule that out but she could have some recovery but it be unclear how much she would gain. * MRI brain report pending, but no drastic changes on my review. EEG shows encephalopathy. * Dr Wilson feels there may be continued improvement, unclear amount of reocery. Acute hypoxemic respiratory failure with concern for aspiration pneumonia * Hybrid Powertrain Development Engineer following as above. * Emergently intubated in ED given altered mentation. Extubated * Chest x-ray on admit showed focal infiltrate in left lower lobe concerning for aspiration pneumonia. * Infectious workup has been negative. * IV pip/tazo and vancomycin completed 7-day course. BENJAMIN on CKD stage IV, resolved * Nephrology following. * Had worsening of kidney function on 08/14, IV Lasix discontinued and will plan to restart home p.o. Lasix on 08/15. Continue to monitor daily BMP and urine output. Hyperosmolar hyperglycemic state, resolved; poorly controlled type 2 diabetes mellitus * Glucose 756 with mental status change on admit. * Known history of poorly controlled diabetes, last A1c 13.1% in April. Currently on tube feeds, continue basal insulin and corrective insulin every 6 hours and adjust doses as needed. Hypernatremia * improved Chronic medical conditions: * Obesity class I: BMI 33 on admit. Complicates hospital course, care and prognosis. * GERD: Continue PPI. * Hypertension: Holding home beta-suresh and LOGAN inhibitor. Nutrition: on Vital Af 1.2 at 50cc/h DVT prophylaxis: Heparin subcu CODE STATUS: DNR CCA, do not reintubate Advance care planning. Spent additional 20 minutes were spoke to the patient's sister. Explained that the patient is overall doing better but is still a far cry from where she was before. Explained that patient could continue to get better but it is unclear what her ceiling would be if it would be normal or if it would still be secondly impaired component. I gave her the options of continuing medical care and I recommended if that route was chosen to proceed with Dobbhoff placement and administer tube feeds that way. I advised against a PEG tube because with patient moving around so much she would be at high risk of self discontinuation of a PEG tube which would require immediate replacement. And for her to continue the RN she did not have any improvement then could proceed with hospice at that time. The other option would be hospice now and that we could have hospice see her and make further recommendations and if she were to get better and then to rescind hospice and proceed with medical care at that point. At this point time she would like to discuss with hospice and that she would be in conversation with her sisters and then proceeding from there. She met with hospice, the patient's sister. Patient was discharged to the inpatient hospice unit on August 18. Medications at Discharge Home Medications aspirin 81 mg tablet,delayed release (Adult Low Dose Aspirin) 81 mg PO DAILY HEART HEALTH 07/16/20 ascorbic acid (vitamin C) 1,000 mg capsule 1 g PO BID SUPPLEMENT 04/14/22 loratadine 10 mg tablet (Allergy Relief (loratadine)) 10 mg PO DAILY ALLERGIES 04/14/22 vitamins A,C,A-oaza-ceyzyo 4,296 mcg-226 mg-90 mg capsule (ICaps AREDS) 1 cap PO BID EYE HEALTH 04/14/22 cholecalciferol (vitamin D3) 50 mcg (2,000 unit) capsule 50 mcg PO DAILY SUPPLEMENT 10/09/22 glucosamine-chondroitin 250 mg-200 mg tablet (Osteo Bi-Flex) 2 tab PO QHS SUPPLEMENT 10/13/22 amlodipine 5 mg tablet 5 mg PO QHS BLOOD PRESSURE 11/21/22 ezetimibe 10 mg tablet 10 mg PO QHS CHOLESTEROL 12/02/22 bumetanide 0.5 mg tablet 0.5 mg PO DAILY EDEMA #90 tabs 03/03/23 carvedilol 6.25 mg tablet 6.25 mg PO BID HEART #180 tabs 03/03/23 omeprazole 20 mg capsule,delayed release 20 mg PO DAILY ACID REFLUX 07/17/23 gabapentin 300 mg capsule 300 mg PO TID PRN NEUROPATHY 07/21/23 acetaminophen 500 mg capsule 650 mg (1.3 x 500 mg) PO Q4H PRN PRN Fever, pain 1- 06/16 #0 caps 07/24/23 peg 400-propylene glycol (PF) 0.4 %-0.3 % eye drops in a dropperette (Lubricant Eye (PG-PEG 400) (PF)) 3 drp EACH EYE DAILY dry eyes 07/24/23 OneTouch Ultra Test (blood sugar diagnostic) #150 ea 10/02/23 losartan 50 mg tablet 50 mg PO DAILY BLOOD PRESSURE #90 tabs 12/01/23 insulin lispro 100 unit/mL subcutaneous pen (Humalog KwikPen (U-100) Insulin) See Rx Instructions subcut .q 6 hours diabetic #45 mL 04/22/24 Humulin R U-500 (Conc) Kwikpen 500 unit/mL (3 mL) subcutaneous (insulin regular hum U-500 conc) 160 unit (0.32 mL) subcut TID diabetes #28.8 mL 06/08/24 tirzepatide 10 mg/0.5 mL subcutaneous pen injector (Mounjaro) 10 mg (0.5 mL) subcut QWEEK dm #2 mL 06/08/24 finerenone 10 mg tablet (Kerendia) 10 mg PO DAILY kidney 08/08/24 Hospital Course Procedures Intubation Summary of Care Provided Minutes Spent on Discharge: 45 Hospital Course: Patient found down. Unknown period of time. Last seen normal was around and then presented on August 08. Patient was admitted and intubated in the emergency room due to her severe mental status. She had a hyperosmolar state and had BENJAMIN. There is concern about anoxic encephalopathy though there is never documented anoxia or hypoxia. MRI of the brain was negative for any anoxic changes. Patient had 2 EEGs that did not show any epileptiform activity other than encephalopathy. Eventually patient was extubated and was able to maintain her airway but patient still remained profoundly confused. Patient was moving around more but was not purposeful. Family was very involved in her case and given the patient's lack of significant progress, is elected to proceed with hospice and patient was transferred to the inpatient hospice unit. Before that happen, I did discuss with patient's sister that it is possible that if she does improve enough that may be consideration to rescind hospice and then proceed with medical therapy. Weight / BMI Weight Weight: 81.6 kg Body Mass Index (BMI) 34.0 ABG / Lab / Microbiology Data 08/17/24 05:24 08/18/24 04:26 Laboratory: Laboratory Results - last 24 hr 08/18/24 17:53: POC Glucose 85 Microbiology: Microbiology 08/14/24 15:20 Blood Culture (Wb) - Wrist Blood Culture - Preliminary No growth in 48 hours. 08/14/24 15:20 Blood Culture (Wb) - Pic Blood Culture - Preliminary No growth in 48 hours. 08/08/24 11:06 Blood Culture (Wb) - Right Forearm Bacteria Detection (PCR) - Final Staphylococcus epidermidis mecA Resistance Marker 08/08/24 11:06 Blood Culture (Wb) - Right Forearm Blood Culture - Final Staphylococcus epidermidis 08/08/24 10:27 Sputum, Induced/Lukens Gram Stain - Final 08/08/24 10:27 Sputum, Induced/Lukens Respiratory Culture - Final Citrobacter braakii 08/08/24 10:35 Blood Culture (Wb) - Right Forearm Blood Culture - Final Staphylococcus epidermidis 08/08/24 10:20 Urine Catheter - Alas Urine Culture - Final Mixed Gram Positive Organisms 08/08/24 14:36 Mucosa - Nasopharyngeal Respiratory Panel (PCR) - Final 08/08/24 14:36 Mucosa - Nasopharyngeal SARS-CoV-2, Influenza & RSV (PCR) - Final 08/08/24 14:25 Wound - Left Foot Skin and Soft Tissue MRSA/MSSA (PCR - Final 08/08/24 14:18 Mucosa - Nose Coronavirus COVID-19 PCR - Final 08/08/24 14:25 Urine Catheter - Alas Streptococcus pneumoniae Antigen (M - Final 08/08/24 14:25 Urine Catheter - Alas Legionella Antigen - Final D/C Instructions DC O2, CPAP, BIPAP Needs PSN CPAP & BiPAP: BiPAP & CPAP Settings per PSN Fraction of Inspired Oxygen ( 21 08/17/24 09:00 FIO2) Additional Home O2 Discharge instructions: No DC home with Oxygen: No Meaningful Use Info Meaningful Use Meaningful Use Diagnoses (Choose all that apply): None applicable Ischemic Stroke Statin Dosing Therapy Reference: STATIN DOSE THERAPY REFERENCE: * Patients > 75 years receive moderate or high dose statin therapy. * Patients 75 years or YOUNGER should receive HIGH intensity statin dose unless contraindicated. You will be required to document reason for non-treatment if statin daily dose does not meet guidelines. HIGH DOSE STATIN THERAPY DAILY Atorvastatin > than or = to 40 mg Rosuvastatin > than or = to 20 mg Amlodipine + Atorvastatin > than or = to 2.5/40 mg Ezetimibe + Simvastatin 10/80 mg Simvastatin 80mg Discharge Plan Admission Admit Date/Time: 08/08/24 12:10 Primary Reason for Your Visit: encephalopathy Attending Provider: Jim Mendez Primary Care Provider: Hever Otoole Consulting Providers: Balbir Ryan; Aylaa Wilson; Alfa Eldridge; Obdulia Escamilla; Hilda Malik; Trinh Duncan; Karan Ibrahim; Catalino Amado; BRODY SHEA; Rodger Finn; Loretta Brown; Dionte Jay; Arnaldo Gonzalez; Sage Hedrick; Daniel Stoddard; Mercedes Keita; Kinsey Tucker; Jn Amador; Christy Cochran; Sharad Pruett; Sanjay Alegria; Minh Yepez; Juan Jose Chowdhury; Bonnie Sanders; Bertin Hernandez; Hector Ortega; Mikal Gilbert; Agatha Merritt; Cesar Choi Discharge Orders/Prescriptions Prescriptions: No Action aspirin [Adult Low Dose Aspirin] 81 mg tablet,delayed release (DR/EC) 81 mg PO DAILY loratadine [Allergy Relief (loratadine)] 10 mg tablet 10 mg PO DAILY ascorbic acid (vitamin C) 1,000 mg capsule 1 g PO BID ICaps AREDS [id number]-sw-[id number] capsule 1 cap PO BID amlodipine 5 mg tablet 5 mg PO QHS carvedilol 6.25 mg tablet 6.25 mg PO BID Qty: 180 3RF bumetanide 0.5 mg tablet 0.5 mg PO DAILY Qty: 90 3RF (DME) OneTouch Ultra Test Strip See Rx Instructions .Route Qty: 150 6RF Rx Instructions: 4 times daily insulin lispro [Humalog KwikPen Insulin] 100 unit/mL insulin pen See Rx Instructions subcut .q 6 hours MDD 140 Qty: 45 6RF Protocol: 3. Sliding Scale Insulin Med Dosing Condition: 150-189 mg/dl = 1 unit Condition: 190-229 mg/dl = 2 units Condition: 230-269 mg/dl = 3 units Condition: 270-309 mg/dl = 4 units Condition: 310-349 mg/dl = 5 units Condition: 350-399 mg/dl = 6 units Condition: 400-449 mg/dl = 7 units Condition: Greater than 449 call physician Protocol Text: - Use for Total Daily Dose of Insulin 37-55 units - Obsese, infected, or steroid patients MEDIUM DOSING ALGORITHIM Rx Instructions: 200-10 units; 240--20 units, 280--30 units, 320--40 units Mounjaro 10 mg/0.5 mL pen injector 10 mg subcut QWEEK Qty: 2 3RF Humulin R U-500 (Conc) Kwikpen 500 unit/mL (3 mL) insulin pen 160 unit subcut TID Qty: 28.8 5RF glucosamine-chondroitin [Osteo Bi-Flex] 250-200 mg Tablet 2 tab PO QHS ezetimibe 10 mg tablet 10 mg PO QHS gabapentin 300 mg capsule 300 mg PO TID PRN (Reason: NEUROPATHY) Patient Comments: PER ROSEMARY HAMILTON, TAKE ONE CAPSULE BY MOUTH THREE TIMES A DAY NEEDED WELL 1 TO 2 ADDITIONAL CAPSULES AT BEDTIME NEEDED FOR PAIN (VERIFIED ON 07-21-23) Lubricant Eye (PG-PEG 400)(PF) 0.4-0.3 % dropperette 3 drp EACH EYE DAILY acetaminophen 500 mg capsule 650 mg PO Q4H PRN PRN (Reason: Fever, pain -06/16) Qty: 0 0RF omeprazole 20 mg capsule,delayed release(DR/EC) 20 mg PO DAILY Kerendia 10 mg tablet 10 mg PO DAILY cholecalciferol (vitamin D3) 50 mcg (2,000 unit) capsule 50 mcg PO DAILY losartan 50 mg tablet 50 mg PO DAILY Qty: 90 3RF Referrals / Follow Up: Hever Otoole DO [Primary Care Provider] - Disposition Disposition (needs filled in before D/C Order can be placed): Hospice in Medical Facility Charges/Coding Visit Charges Inpatient E&M: 83400 Disch Hosp >30min
[2024-08-18 19:31] VITALS: BP 127/46; PULSE 80; RESP 20; TEMP 36.9; O2SAT 98
== END 2024-08-18 22:46 | disposition hospice, inpatient (51) | DRG 637 ==
LOC: ED 12:03 → ICU 12:31 → MS3 08-19 12:10
PROVIDERS: Hospitalist; Internal Medicine; Internal Medicine Critical Care Medicine; Admitting Provider Internal Medicine; Emergency Provider Emergency Medicine; PCP Family Medicine
DX: E11.00 Type 2 diabetes mellitus with hyperosmolarity without nonketotic hyperglycemic-hyperosmolar coma (NKHHC) (principal); G93.41 Metabolic encephalopathy; J96.01 Acute respiratory failure with hypoxia; J69.0 Pneumonitis due to inhalation of food and vomit; N17.0 Acute kidney failure with tubular necrosis; M62.82 Rhabdomyolysis; I13.0 Hypertensive heart and chronic kidney disease with heart failure and stage 1 through stage 4 chronic kidney disease, or unspecified chronic kidney disease; N18.4 Chronic kidney disease, stage 4 (severe); I42.9 Cardiomyopathy, unspecified; E87.0 Hyperosmolality and hypernatremia; E87.21 Acute metabolic acidosis; I50.22 Chronic systolic (congestive) heart failure; E11.22 Type 2 diabetes mellitus with diabetic chronic kidney disease; Z68.33 Body mass index [BMI] 33.0-33.9, adult; K21.9 Gastro-esophageal reflux disease without esophagitis; Z79.4 Long term (current) use of insulin; E78.5 Hyperlipidemia, unspecified; E11.42 Type 2 diabetes mellitus with diabetic polyneuropathy; E11.21 Type 2 diabetes mellitus with diabetic nephropathy; E86.1 Hypovolemia; Z51.5 Encounter for palliative care; Z79.85 Long-term (current) use of injectable non-insulin antidiabetic drugs; Z80.0 Family history of malignant neoplasm of digestive organs; E66.811 Obesity, class 1; Z66 Do not resuscitate
CPT/HCPCS: 31500; 31720; 36415; 36556; 36600; 51702; 70450; 70551; 70553; 71045; 72125; 80048; 80053; 80076; 80202; 80307; 81001; 82009; 82077; 82140; 82248; 82550; 82803; 82962; 83605; 83690; 83735; 84100; 84443; 84478; 84484; 85025; 85610; 85730; 87040; 87070; 87077; 87086; 87088; 87149; 87186; 87205; 87449; 87631; 87633; 87635; 87640; 93005; 93306; 94002; 94003; 94660; 94762; 95819; 97802; 97803; 99252; 99285; A9575; J7030; J7040; J7050; J7120; Q9957; A4216; C8929; G0463; J1940